=== PATIENT | male | born 1955 | race Caucasian/White ===

== ENCOUNTER 2019-05-17 13:54 | Outpatient (CLI) | payer MEDICARE ==
[2019-05-17 17:25] LABS: BASOPHILS % (AUTO) 0.7 %; EOSINOPHILS # (AUTO) 0.1 10^3/uL (0.0-0.7); EOSINOPHILS % (AUTO) 2.8 %; HGB - HEMOGLOBIN 14.6 g/dL (14.0-18.0); LYMPHOCYTES # (AUTO) 1.2 10^3/uL (1.5-3.5); MEAN CORPUSCULAR HEMOGLOBIN 31.8 pg (27.0-31.0); MEAN CORPUSCULAR HGB CONC 33.6 g/dL (32.0-36.0); MEAN CORPUSCULAR VOLUME 94.8 fL (80.0-94.0); MEAN PLATELET VOLUME 10.9 fL (7.4-11.4); MONOCYTES # (AUTO) 0.4 10^3/uL (0.0-1.0); NEUTROPHILS # (AUTO) 2.6 10^3/uL (1.5-6.6); NEUTROPHILS % (AUTO) 60.3 %; PLT - PLATELET COUNT 233 10^3/uL (130-450); RED BLOOD COUNT 4.59 10^6/uL (4.70-6.10); RED CELL DISTRIBUTION WIDTH 13.2 % (12.0-15.0); WHITE BLOOD COUNT 4.3 x10^3/uL (4.8-10.8)
[2019-05-17 17:39] LABS: HB2 TOTAL 15.3 g/dL; HEMOGLOBIN A1C 0.98 g/dL
[2019-05-17 17:50] LABS: ALBUMIN/GLOBULIN RATIO 1.4 (1.0-2.2); ALKALINE PHOSPHATASE 73 IU/L (42-121); ALT ALANINE AMINOTRANSFERASE 23 IU/L (10-60); AST ASPARTATE AMINOTRANSFERASE 19 IU/L (10-42); BILIRUBIN,TOTAL 0.7 mg/dL (0.2-1.0); BUN - BLOOD UREA NITROGEN 20 mg/dL (6-20); CALCIUM 8.9 mg/dL (8.5-10.3); CARBON DIOXIDE - CO2 29 mmol/L (21-32); CHLORIDE 105 mmol/L (101-111); CHOL/HDL RATIO 2.8 (<5.0); CHOLESTEROL 115 mg/dL; CREATININE 1.2 mg/dL (0.6-1.2); GFR - MDRD 61 (>89); GLUCOSE 268 mg/dL (70-100); HDL CHOLESTEROL 41 mg/dL; LDL CHOLESTEROL,CALCULATED 59 mg/dL; LDL/HDL RATIO 1.4 (<3.6); SODIUM 138 mmol/L (135-145); TOTAL PROTEIN 6.8 g/dL (6.7-8.2); VLDL CHOLESTEROL 15 mg/dL
== END 2019-05-17 13:55 | disposition home or self-care (01) ==
LOC: LAB.S 13:54
PROVIDERS: ATTEND Registered Nurse
DX: E10.9 Type 1 diabetes mellitus without complications (principal); I10 Essential (primary) hypertension
CPT/HCPCS: 36415; 80053; 80061; 83036; 83721; 84443; 85025

== ENCOUNTER 2019-06-09 00:23 | Emergency (ER) | payer MEDICARE ==
--- NOTE | 2019-06-09 00:27 | ED Physician Documentation ---
History of Present Illness - Stated complaint Stated Complaint: VOMITING - History obtained from History obtained from: Patient (The patient is a 63-year-old male who is an insulin-dependent diabetic he has been vomiting all day he does report getting admitted to the hospital once annually for either combination of diabetic ketoacidosis as well as diabetic Gastroparesis.He is on chronic proton pump inhibitor he reports that today he was more active than usual and then Started t o not feel well and started vomiting.), Family Review of Systems Constitutional: reports: Reviewed and negative Eyes: reports: Reviewed and negative Ears: reports: Reviewed and negative Nose: reports: Reviewed and negative Throat: reports: Reviewed and negative Cardiac: reports: Reviewed and negative Respiratory: reports: Reviewed and negative GI: reports: Vomiting, Reviewed and negative : reports: Reviewed and negative Skin: reports: Reviewed and negative Musculoskeletal: reports: Reviewed and negative Neurologic: reports: Reviewed and negative Psychiatric: reports: Reviewed and negative Endocrine: reports: Reviewed and negative Immunocompromised: reports: Reviewed and negative PD PAST MEDICAL HISTORY - Present Medications Home Medications: Ambulatory Orders Medication Instructions Recorded Confirmed Atorvastatin Calcium 40 mg PO DAILY 06/09/19 06/09/19 Carvedilol [Coreg] 25 mg PO DAILY 06/09/19 06/09/19 Losartan Potassium 25 mg PO DAILY 06/09/19 06/09/19 Metoclopramide [Reglan] 10 mg PO Q6HR PRN #10 tablet 06/09/19 Omeprazole 20 mg PO DAILY 06/09/19 06/09/19 Ondansetron Odt [Zofran] 4 mg TL Q6H PRN #10 tablet 06/09/19 Tamsulosin [Flomax] 0.4 mg PO DAILY 06/09/19 06/09/19 - Allergies Allergies/Adverse Reactions: Allergies Allergy/AdvReac Type Severity Reaction Status Date / Time No Known Drug Allergies Allergy Verified 06/09/19 00:55 PD ED PE NORMAL - Vitals Vital signs reviewed: Yes - General General: Alert and oriented X 3, No acute distress, Well developed/nourished - HEENT HEENT: Atraumatic, PERRL, EOMI, Ears normal, Moist mucous membranes, Pharynx benign, Dentition benign - Neck Neck: Supple, no meningeal sign, No bony TTP - Cardiac Cardiac: RRR, No murmur, Strong equal pulses - Respiratory Respiratory: No respiratory distress, Clear bilaterally - Abdomen Abdomen: Normal bowel sounds, Soft, Non tender, Non distended, No organomegaly - Male Male : Deferred - Rectal Rectal: Deferred - Back Back: No CVA TTP, No spinal TTP - Derm Derm: Normal color, Warm and dry, No rash - Extremities Extremities: No deformity, No tenderness to palpate, Normal ROM s pain, No edema, No calf tenderness / cord - Neuro Neuro: Alert and oriented X 3, manager brand 2-12 intact, No motor deficit, No sensory deficit, Normal speech - Psych Psych: Normal mood, Normal affect Results - Vitals Vitals: Vital Signs - 24 hr 06/09/19 06/09/19 06/09/19 00:34 01:08 01:10 Temperature 37.1 C Heart Rate 113 H 103 H Respiratory 19 17 17 Rate Blood Pressure 158/89 H 119/76 O2 Saturation 98 99 06/09/19 06/09/19 02:22 02:41 Temperature Heart Rate 83 Respiratory 17 17 Rate Blood Pressure 141/81 H O2 Saturation 97 Oxygen O2 Source Room air - EKG (time done) 00:54 Rate: Other (No STEMI) - Labs Labs: Laboratory Tests 06/09/19 06/09/19 06/09/19 01:45 01:45 01:45 WBC 9.4 RBC 5.20 Hgb 16.3 Hct 47.0 MCV 90.4 MCH 31.3 H MCHC 34.7 RDW 12.9 Plt Count 238 MPV 10.1 Neut # (Auto) 8.5 H Lymph # (Auto) 0.4 L P[place] # (Auto) 0.4 Eos # (Auto) 0.0 Baso # (Auto) 0.0 Absolute Nucleated RBC 0.00 Nucleated RBC % 0.0 VBG pH VBG pCO2 VBG pO2 VBG HCO3 VBG Total CO2 VBG O2 Saturation VBG Base Excess Sodium 134 L Potassium 4.1 Chloride 100 L Carbon Dioxide 20 L Anion Gap 14.0 H BUN 23 H Creatinine 1.2 Estimated GFR (MDRD) 61 L Glucose 329 H Lactic Acid 2.3 H Calcium 8.4 L Phosphorus 4.1 Magnesium 1.6 L Total Bilirubin 1.5 H Direct Bilirubin 0.3 AST 25 ALT 27 Alkaline Phosphatase 68 Total Creatine Kinase 371 H Troponin I High Sens Total Protein 7.0 Albumin 4.4 Globulin 2.6 Lipase 23 Ethyl Alcohol < 5.0 Serum Ketones NEGATIVE 06/09/19 06/09/19 01:45 01:45 WBC RBC Hgb Hct MCV MCH MCHC RDW Plt Count MPV Neut # (Auto) Lymph # (Auto) Pinal # (Auto) Eos # (Auto) Baso # (Auto) Absolute Nucleated RBC Nucleated RBC % VBG pH 7.330 VBG pCO2 41.9 VBG pO2 35.1 VBG HCO3 21.6 L VBG Total CO2 22.9 L VBG O2 Saturation 69.9 VBG Base Excess -4.1 L Sodium Potassium Chloride Carbon Dioxide Anion Gap BUN Creatinine Estimated GFR (MDRD) Glucose Lactic Acid Calcium Phosphorus Magnesium Total Bilirubin Direct Bilirubin AST ALT Alkaline Phosphatase Total Creatine Kinase Troponin I High Sens 21.4 H* Total Protein Albumin Globulin Lipase Ethyl Alcohol Serum Ketones PD MEDICAL DECISION MAKING - ED course Complexity details: considered differential (DKA, dehydration, acute kidney injury, ACS, diabetic gastroparesis) Departure - Departure Clinical Impression: Hyperglycemia, Gastroparesis diabeticorum Condition: Good Instructions: ED Diabetic Gastroparesis Follow-Up: Lena Kirkland ARNP [Primary Care Provider] - 06/09/19 Prescriptions: Metoclopramide [Reglan] 10 mg PO Q6HR PRN #10 tablet PRN Reason: Nausea / Vomiting Ondansetron Odt [Zofran] 4 mg TL Q6H PRN #10 tablet PRN Reason: Nausea / Vomiting
[2019-06-09] MEDS ORDERED: SODIUM CHLORIDE 0.9% 1,000 ML IV ONE (00:51)
[2019-06-09] MEDS ORDERED: ONDANSETRON 4 MG/2 ML VIAL IVP STA ×2 (00:51→03:04)
--- NOTE | 2019-06-09 01:21 | XRAY Report ---
Reason: cp Procedure Date: 06/09/2019 Accession Number: [id number] / [id number] Procedure: XR - Chest 1 View X-Ray CPT Code: 19904 Final Report FULL RESULT: EXAM: CHEST RADIOGRAPHY EXAM DATE: 06/09/2019 01:11 AM. CLINICAL HISTORY: Chest pain. COMPARISON: None. TECHNIQUE: 1 view. FINDINGS: Lungs/Pleura: No infiltrates. No pleural effusions or pneumothorax. Mediastinum: Heart size within normal limits. Atherosclerotic calcifications of the aortic knob. Osseous structures: No significant focal osseous lesions. IMPRESSION: No acute cardiopulmonary process identified radiographically. RADIA
[2019-06-09 01:51] LABS: BASOPHILS % (AUTO) 0.2 %; HGB - HEMOGLOBIN 16.3 g/dL (14.0-18.0); LYMPHOCYTES # (AUTO) 0.4 10^3/uL (1.5-3.5); LYMPHOCYTES % (AUTO) 4.4 %; MEAN CORPUSCULAR HEMOGLOBIN 31.3 pg (27.0-31.0); MEAN CORPUSCULAR HGB CONC 34.7 g/dL (32.0-36.0); MEAN CORPUSCULAR VOLUME 90.4 fL (80.0-94.0); MEAN PLATELET VOLUME 10.1 fL (7.4-11.4); MONOCYTES # (AUTO) 0.4 10^3/uL (0.0-1.0); MONOCYTES % (AUTO) 4.5 %; NEUTROPHILS # (AUTO) 8.5 10^3/uL (1.5-6.6); NEUTROPHILS % (AUTO) 90.6 %; PLT - PLATELET COUNT 238 10^3/uL (130-450); RED CELL DISTRIBUTION WIDTH 12.9 % (12.0-15.0); WHITE BLOOD COUNT 9.4 x10^3/uL (4.8-10.8)
[2019-06-09 01:55] LABS: KETONES, SERUM (ACETEST) NEGATIVE (NEGATIVE)
[2019-06-09 01:57] LABS: VBG BASE EXCESS -4.1 mmol/L (-2 - +2); VBG PCO2 41.9 mmHg (41-51); VBG PH 7.33 (7.31-7.41); VBG PO2 35.1 mmHg (25-47); VBG TOTAL CO2 22.9 mmol/L (24-29)
[2019-06-09 02:09] LABS: ALBUMIN 4.4 g/dL (3.2-5.5); ALKALINE PHOSPHATASE 68 IU/L (42-121); ALT ALANINE AMINOTRANSFERASE 27 IU/L (10-60); AST ASPARTATE AMINOTRANSFERASE 25 IU/L (10-42); BILIRUBIN,DIRECT 0.3 mg/dL (0.1-0.5); BILIRUBIN,TOTAL 1.5 mg/dL (0.2-1.0); BUN - BLOOD UREA NITROGEN 23 mg/dL (6-20); CALCIUM 8.4 mg/dL (8.5-10.3); CARBON DIOXIDE - CO2 20 mmol/L (21-32); CHLORIDE 100 mmol/L (101-111); CK- CREATINE KINASE 371 IU/L (22-269); CREATININE 1.2 mg/dL (0.6-1.2); GFR - MDRD 61 (>89); GLUCOSE 329 mg/dL (70-100); LIPASE 23 U/L (22-51); MAGNESIUM 1.6 mg/dL (1.7-2.8); PHOSPHORUS 4.1 mg/dL (2.5-4.6); SODIUM 134 mmol/L (135-145)
[2019-06-09 02:23] VITALS: BP 141/81
[2019-06-09] MEDS ORDERED: ONDANSETRON 4 MG/2 ML VIAL ONE (03:07)
== END 2019-06-09 03:29 | disposition home or self-care (01) ==
LOC: ED 00:23
DX: E11.43 Type 2 diabetes mellitus with diabetic autonomic (poly)neuropathy (principal); E11.65 Type 2 diabetes mellitus with hyperglycemia; K31.84 Gastroparesis; Z79.4 Long term (current) use of insulin; R00.0 Tachycardia, unspecified
CPT/HCPCS: 36415; 71045; 80048; 80076; 80320; 82009; 82550; 82803; 83605; 83690; 83735; 84100; 84484; 85025; 93005; 99284; 99285

== ENCOUNTER 2019-06-09 13:58 | Inpatient (IN) | payer MEDICARE ==
--- NOTE | 2019-06-09 15:22 | ED Physician Documentation ---
PD HPI NVD - Stated complaint Stated Complaint: VOMITING - Chief complaint Chief Complaint: Abd Pain - History obtained from History obtained from: Patient - History of Present Illness Timing - onset: How many days ago (2) Timing - duration: Days (2) Timing - details: Gradual onset, Still present Associated symptoms: Abdominal pain (general cramping), Hematemesis (coffeeground emesis today), Loss of appetite. No: Fever, Near syncope / syncope Contributing factors: Diabetes. No: Sick contact, Bad food, Travel Improved by: No: Vomiting Worsened by: Eating, Position, Palpation Similar symptoms before: Diagnosis (DKA or gastroperesis about once per year on average, usually related to some illness starting it (GE or URI/pneumonia).i) Recently seen: Emergency Dept (last night with IV fluids and meds and seemed improved at the time, but states had onset of nausea and vomiting within an hour of getting home.) Review of Systems Constitutional: reports: Myalgias, Fatigue. denies: Fever, Chills, Weight Loss Nose: denies: Rhinorrhea / runny nose, Congestion Throat: denies: Sore throat Cardiac: denies: Chest pain / pressure, Palpitations Respiratory: denies: Cough GI: reports: Abdominal Pain, Nausea, Vomiting, Hematemesis (some coffeeground material this morning). denies: Abdominal Swelling, Constipation, Bloody / black stool Musculoskeletal: denies: Neck pain, Back pain Neurologic: reports: Generalized weakness. denies: Focal weakness, Numbness, Near syncope PD PAST MEDICAL HISTORY - Past Medical History Cardiovascular: Hypertension Respiratory: None Neuro: None Endocrine/Autoimmune: Type 1 diabetes GI: GERD : None HEENT: None Psych: None Musculoskeletal: None Derm: None - Past Surgical History Past Surgical History: Yes General: Appendectomy Ortho: Other - Present Medications Home Medications: Ambulatory Orders Medication Instructions Recorded Confirmed Atorvastatin Calcium 40 mg PO QPM 06/09/19 06/09/19 Carvedilol [Coreg] 25 mg PO DAILY 06/09/19 06/09/19 Insulin Regular Human [NovoLIN R] 0 - 5 unit SUBQ TIDWM 06/09/19 06/09/19 Insulin Regular Human [NovoLIN R] 35 unit SUBQ BID 06/09/19 06/09/19 Losartan Potassium 25 mg PO DAILY 06/09/19 06/09/19 Omeprazole 20 mg PO DAILY 06/09/19 06/09/19 Tamsulosin [Flomax] 0.4 mg PO DAILY 06/09/19 06/09/19 - Allergies Allergies/Adverse Reactions: Allergies Allergy/AdvReac Type Severity Reaction Status Date / Time No Known Drug Allergies Allergy Verified 06/09/19 00:55 - Social History Does the pt smoke?: Yes Smoking Status: Current every day smoker Does the pt drink ETOH?: No Does the pt have substance abuse?: Yes - Immunizations Immunizations are current?: Yes - POLST Patient has POLST: No PD ED PE NORMAL - Vitals Vital signs reviewed: Yes (hypertensive; had not had BP meds for 2 days) - General General: Alert and oriented X 3, Well developed/nourished, Other (active vomiting with coffeeground material. No faizan blood. Appears uncomfortable. ) - HEENT HEENT: Ears normal, Pharynx benign. No: Moist mucous membranes - Neck Neck: Supple, no meningeal sign, No adenopathy - Cardiac Cardiac: RRR, No murmur - Respiratory Respiratory: Clear bilaterally - Abdomen Abdomen: Soft, Non distended, No organomegaly, Other (tender epigastric area without guarding. Diminished bowel sounds. ) - Male Male : Deferred - Rectal Rectal: Deferred - Back Back: No CVA TTP - Derm Derm: Normal color, Warm and dry - Extremities Extremities: No tenderness to palpate, Normal ROM s pain - Neuro Neuro: Alert and oriented X 3, No motor deficit, Normal speech Results - Vitals Vitals: Vital Signs - 24 hr 06/09/19 06/09/19 06/09/19 14:13 16:09 16:29 Temperature 36.8 C 37.4 C Heart Rate 106 H 108 H 93 Respiratory 18 20 Rate Blood Pressure 219/122 H 262/125 H 218/119 H O2 Saturation 99 97 06/09/19 16:45 Temperature Heart Rate 92 Respiratory 18 Rate Blood Pressure 198/97 H O2 Saturation 97 Oxygen O2 Source Room air - Labs Labs: Laboratory Tests 06/09/19 06/09/19 06/09/19 14:18 15:20 15:39 WBC 12.9 H RBC 5.21 Hgb 16.3 Hct 46.8 MCV 89.8 MCH 31.3 H MCHC 34.8 RDW 13.1 Plt Count 248 MPV 10.3 Neut # (Auto) 11.6 H Lymph # (Auto) 0.5 L Williams # (Auto) 0.7 Eos # (Auto) 0.0 Baso # (Auto) 0.0 Absolute Nucleated RBC 0.00 Nucleated RBC % 0.0 VBG pH VBG pCO2 VBG pO2 VBG HCO3 VBG Total CO2 VBG O2 Saturation VBG Base Excess Sodium 133 L Potassium 4.4 Chloride 96 L Carbon Dioxide 19 L Anion Gap 18.0 H BUN 45 H Creatinine 1.8 H Estimated GFR (MDRD) 38 L Glucose 486 H POC Whole Bld Glucose 437 H Glycated Hemoglobin Estim Average Glucose Calcium 9.2 Magnesium 1.9 Total Bilirubin 1.9 H AST 44 H ALT 33 Alkaline Phosphatase 78 Total Protein 7.9 Albumin 4.9 Globulin 3.0 Albumin/Globulin Ratio 1.6 Lipase 16 L Serum Ketones SMALL H 06/09/19 06/09/19 06/09/19 15:39 15:39 17:05 WBC RBC Hgb Hct MCV MCH MCHC RDW Plt Count MPV Neut # (Auto) Lymph # (Auto) Williams # (Auto) Eos # (Auto) Baso # (Auto) Absolute Nucleated RBC Nucleated RBC % VBG pH 7.401 VBG pCO2 30.6 L VBG pO2 42.3 VBG HCO3 18.6 L VBG Total CO2 19.5 L VBG O2 Saturation 81.4 H VBG Base Excess -4.7 L Sodium Potassium Chloride Carbon Dioxide Anion Gap BUN Creatinine Estimated GFR (MDRD) Glucose POC Whole Bld Glucose 408 H Glycated Hemoglobin 8.1 H Estim Average Glucose 186 H Calcium Magnesium Total Bilirubin AST ALT Alkaline Phosphatase Total Protein Albumin Globulin Albumin/Globulin Ratio Lipase Serum Ketones - Rads (name of study) chest xray Radiology: Prelim report reviewed (low lung volumes; no acute disease), See rad report PD MEDICAL DECISION MAKING - ED course Complexity details: reviewed old records, reviewed results (small ketones and low bicarb, though pH is still 7.4, so is at just edge of DKA. ), re-evaluated patient (still nauseated and general weakness; no active vomiting), considered differential, d/w patient, d/w cognos consultant (hospitalist) Departure - Departure Disposition: 66 [facility] DC/Xfer Condition: Stable Record reviewed to determine appropriate education?: Yes Discharge Date/Time: 06/09/19 18:17
[2019-06-09 15:36] LABS: BASOPHILS % (AUTO) 0.2 %; HGB - HEMOGLOBIN 16.3 g/dL (14.0-18.0); LYMPHOCYTES # (AUTO) 0.5 10^3/uL (1.5-3.5); LYMPHOCYTES % (AUTO) 3.9 %; MEAN CORPUSCULAR HEMOGLOBIN 31.3 pg (27.0-31.0); MEAN CORPUSCULAR HGB CONC 34.8 g/dL (32.0-36.0); MEAN CORPUSCULAR VOLUME 89.8 fL (80.0-94.0); MEAN PLATELET VOLUME 10.3 fL (7.4-11.4); MONOCYTES # (AUTO) 0.7 10^3/uL (0.0-1.0); MONOCYTES % (AUTO) 5.5 %; NEUTROPHILS # (AUTO) 11.6 10^3/uL (1.5-6.6); NEUTROPHILS % (AUTO) 89.9 %; PLT - PLATELET COUNT 248 10^3/uL (130-450); RED BLOOD COUNT 5.21 10^6/uL (4.70-6.10); RED CELL DISTRIBUTION WIDTH 13.1 % (12.0-15.0); WHITE BLOOD COUNT 12.9 x10^3/uL (4.8-10.8)
[2019-06-09] MEDS ORDERED: FAMOTIDINE 20 MG/2 ML VIAL IVP STA (15:36)
[2019-06-09] MEDS ORDERED: SODIUM CHLORIDE 0.9% 1,000 ML IV ONE ×3 (15:36→17:15)
[2019-06-09] MEDS ORDERED: ONDANSETRON 4 MG/2 ML VIAL IVP STA (15:36)
[2019-06-09] MEDS ORDERED: INSULIN REGULAR HUMAN 100 UNIT/1 ML 10 ML MDV IVP STA ×2 (15:36→17:07)
[2019-06-09 15:48] LABS: VBG PH 7.401 (7.31-7.41)
[2019-06-09 15:49] LABS: VBG BASE EXCESS -4.7 mmol/L (-2 - +2); VBG PCO2 30.6 mmHg (41-51); VBG PO2 42.3 mmHg (25-47); VBG TOTAL CO2 19.5 mmol/L (24-29)
[2019-06-09 15:58] LABS: ALBUMIN 4.9 g/dL (3.2-5.5); ALBUMIN/GLOBULIN RATIO 1.6 (1.0-2.2); ALKALINE PHOSPHATASE 78 IU/L (42-121); ALT ALANINE AMINOTRANSFERASE 33 IU/L (10-60); AST ASPARTATE AMINOTRANSFERASE 44 IU/L (10-42); BILIRUBIN,TOTAL 1.9 mg/dL (0.2-1.0); BUN - BLOOD UREA NITROGEN 45 mg/dL (6-20); CALCIUM 9.2 mg/dL (8.5-10.3); CARBON DIOXIDE - CO2 19 mmol/L (21-32); CHLORIDE 96 mmol/L (101-111); CREATININE 1.8 mg/dL (0.6-1.2); GLUCOSE 486 mg/dL (70-100); LIPASE 16 U/L (22-51); MAGNESIUM 1.9 mg/dL (1.7-2.8); SODIUM 133 mmol/L (135-145); TOTAL PROTEIN 7.9 g/dL (6.7-8.2)
[2019-06-09] MEDS ORDERED: METOPROLOL 5 MG/5 ML VIAL IVP STA ×2 (16:10→17:06)
[2019-06-09 16:15] LABS: KETONES, SERUM (ACETEST) SMALL (NEGATIVE)
[2019-06-09] MEDS ORDERED: METOCLOPRAMIDE 10 MG/2 ML VIAL IVP STA (16:45)
[2019-06-09] MEDS ORDERED: INSULIN REGULAR HUMAN 100 UNIT in SODIUM CHLORIDE 0.9% 100ML 99 ML IV STA (17:15)
[2019-06-09] MEDS ORDERED: PROCHLORPERAZINE 10 MG/2 ML VIAL IVP PRN (17:33)
[2019-06-09] MEDS ORDERED: ACETAMINOPHEN 325 MG TABLET PO PRN (17:33)
[2019-06-09 18:13] LABS: BUN - BLOOD UREA NITROGEN 44 mg/dL (6-20); CALCIUM 8.8 mg/dL (8.5-10.3); CARBON DIOXIDE - CO2 22 mmol/L (21-32); CHLORIDE 102 mmol/L (101-111); CREATININE 1.7 mg/dL (0.6-1.2); GLUCOSE 381 mg/dL (70-100); SODIUM 137 mmol/L (135-145)
[2019-06-09 18:42] LABS: MUDS CUTOFF CONCENTRATIONS CUTOFF CONC BELOW:
[2019-06-09 18:46] LABS: BILIRUBIN,URINE NEGATIVE (NEGATIVE); GLUCOSE, URINE (UA) >=1000 mg/dL (NEGATIVE); KETONES,URINE (UA) 40 mg/dL (NEGATIVE); LEUKOCYTE ESTERASE, URINE NEGATIVE (NEGATIVE); NITRITE,URINE NEGATIVE (NEGATIVE); OCCULT BLOOD,URINE LARGE (NEGATIVE); PH,URINE 5.5 PH (5.0-7.5); PROTEIN,URINE 100 mg/dL (NEGATIVE); UROBILINOGEN,URINE 0.2 (NORMAL) E.U./dL (NORMAL)
[2019-06-09 18:49] LABS: KETONES, SERUM (ACETEST) NEGATIVE (NEGATIVE)
[2019-06-09 18:53] LABS: BACTERIA,URINE None Seen /HPF (None Seen); CLARITY,URINE CLEAR (CLEAR); RBC,URINE 0-5 /HPF (0-5); SQUAMOUS EPITHELIAL CELL,UR NONE SEEN (<= Few)
[2019-06-09 18:54] LABS: AMPHETAMINE SCREEN,URINE NEGATIVE (NEGATIVE); BENZODIAZEPINES SCREEN, URINE NEGATIVE (NEGATIVE); COCAINE SCREEN URINE NEGATIVE (NEGATIVE); METHADONE SCREEN, URINE NEGATIVE (NEGATIVE); METHAMPHETAMINES SCREEN, URINE NEGATIVE (NEGATIVE); OPIATE SCREEN, URINE NEGATIVE (NEGATIVE); OXYCODONE SCREEN, URINE NEGATIVE (NEGATIVE); PROPOXYPHENE SCREEN, URINE NEGATIVE (NEGATIVE); TRICYCLIC ANTIDEPRESSANT,URINE NEGATIVE (NEGATIVE)
[2019-06-09 18:58] LABS: HB2 TOTAL 17.3 g/dL; HEMOGLOBIN A1C 1.13 g/dL; HEMOGLOBIN A1C % 8.1 % (4.6-6.2)
[2019-06-09] MEDS: SODIUM CHLORIDE FLUSH 0.9% 10 ML SYRINGE IVP SCH (19:32)
--- NOTE | 2019-06-09 19:41 | HISTORY & PHYSICAL EXAMINATION ---
Chief Complaint - Chief Complaint Chief Complaint: nausea and vomiting History of Present Illness - Admitted From Admitted From:: [facility] - History Obtained From Records Reviewed: yes History obtained from: patient - History of Present Illness HPI Comment/Other: Patient is a 63 y/o male who is diabetic and has gastroporesis. He presented to the ED with complain of nausea and vomiting. He is usually nauseous and vomits numerous times on most days. However he has been experiencing worsening symptoms over the past 7-8 days. As a result he was brought to the ED today by his daughter. He had presented yesterday, was treated in the ED, felt better, so he was discharged. He had a pHof 7.33, anion gap of 19 but no serum ketones. Today his serum ketones were positive and his blood glucose was 408. As a result he was admitted to the ICU on insulin drip for DKA. He denies chest pain, dyspnea, abd pain, fever or chills. His nausea and vomiting seems to have subsided. History - Past Medical History Cardiovascular: reports: Hypertension, High cholesterol Respiratory: reports: None Neuro: reports: None Endocrine/Autoimmune: reports: Type 1 diabetes GI: reports: GERD : reports: Benign prostate hypertrophy HEENT: reports: None Psych: reports: None Musculoskeletal: reports: Gout Derm: reports: None MRSA Hx?: No Other Past Medical History: Gastroperisis - Past Surgical History General: reports: Appendectomy Ortho: reports: Amputation (right lateral 2 toes), Other - Family & Social History Family History: Father: Cancer, Sister: Diabetes, Type 1 (and maternsl cousins), Brother: Cancer, Diabetes, Type 1 Living arrangement: At home Social History Notes: He smokes marijuana but no tobacco product. He drinks occasionally - POLST Patient has POLST: No POLST Status: Full Code Meds/Allgy - Home Medications Home Medications: Ambulatory Orders Medication Instructions Recorded Confirmed Atorvastatin Calcium 40 mg PO QPM 06/09/19 06/09/19 Carvedilol [Coreg] 25 mg PO DAILY 06/09/19 06/10/19 Insulin Regular Human [NovoLIN R] 2 - 10 unit SUBQ TIDWM 06/09/19 06/10/19 Losartan Potassium 25 mg PO DAILY 06/09/19 06/10/19 Omeprazole 20 mg PO QDAC 06/09/19 06/10/19 Tamsulosin [Flomax] 0.4 mg PO DAILY 06/09/19 06/10/19 Insulin NPH Human [Humulin N] 35 unit SUBQ BID 06/10/19 06/10/19 - Allergies Allergies/Adverse Reactions: Allergies Allergy/AdvReac Type Severity Reaction Status Date / Time No Known Drug Allergies Allergy Verified 06/09/19 00:55 Review of Systems - Constitutional Constitutional: denies: Fatigue, Fever, Chills - Eyes Eyes: reports: Blurred vision (in left eye). denies: Pain - Ears, Nose & Throat Ears, Nose & Throat: reports: Hearing loss (in right ear) - Cardiovascular Cariovascular: denies: Chest pain, Edema, Lightheadedness, Syncope - Respiratory Respiratory: denies: Cough, Wheezing, SOB at rest, SOB with exertion - Gastrointestinal Gastrointestinal: reports: Nausea, Vomiting, Reflux/heartburn. denies: Abdominal pain, Diarrhea - Genitourinary Genitourinary: denies: Dysuria, Frequency, Urgency, Hematuria - Musculoskeletal Musculoskeletal: denies: Muscle pain, Back pain, Muscle aches - Integumentary Integumentary: denies: Rash, Pruritis, Lesions - Neurological Neurological: denies: General weakness, Focal weakness, Headache, Dizziness - Psychiatric Psychiatric: denies: Depression, Anxiety - Endocrine Endocrine: denies: Polyuria, Polydypsia - Hematologic/Lymphatic Hematologic/Lymphatic: denies: Anemia, Bruising, Petechiae Prior Level of Functionality: He is independent of activities of daily living. Exam - Vital Signs Vital Signs: Vital Signs x48h Temp Pulse Pulse Resp BP BP Pulse Ox 06/09/19 19:00 101 H 15 138/95 H 100 06/09/19 18:43 37.3 C 92 19 211/120 H 06/09/19 17:47 87 16 134/79 H 98 06/09/19 17:30 87 18 140/81 H 97 06/09/19 17:25 91 199/99 H 06/09/19 16:45 92 18 198/97 H 97 06/09/19 16:29 93 218/119 H 06/09/19 16:09 37.4 C 108 H 20 262/125 H 97 06/09/19 14:13 36.8 C 106 H 18 219/122 H 99 - Physical Exam General Appearance: positive: No acute distress, Alert Eyes Bilateral: positive: PERRL, EOMI ENT: positive: Dry mucous membranes Neck: positive: No JVD, Trachea midline Respiratory: positive: Chest non-tender, No respiratory distress, Breath sounds nml. negative: Wheezes, Rales, Rhonchi Cardiovascular: positive: Regular rate & rhythm Abdomen: positive: Non-tender, No organomegaly, Nml bowel sounds, No distention. negative: Guarding, Rebound Back: positive: Nml inspection Skin: positive: Color nml, Warm, Other (callouses on feet with possible ulcer underneath) Extremities: positive: Non-tender, No pedal edema, Other (right lateral 2 toes amputated) Neurologic/Psychiatric: positive: Oriented x3, Motor nml, Mood/affect nml Conclusion/Plan - Problem List (1) DKA (diabetic ketoacidoses) Conclusion/Plan: Patient admitted to the ICU on the DKA protocol. Will monitor BMP and adjust insulin accordingly Qualifiers: Diabetes mellitus type: type 1 (2) Gastroparesis diabeticorum Conclusion/Plan: Patient given metoclopramide in the ED. Will schedule Q6hrs Zofran ordered prn (3) Hyperlipidemia Conclusion/Plan: On atorvastatin 40 mg p0 qhs (4) Hypertension Conclusion/Plan: On losartan and carvedilol (5) BPH (benign prostatic hyperplasia) Conclusion/Plan: On tamsulosin (6) GERD (gastroesophageal reflux disease) Conclusion/Plan: Famotidine ordered (7) Acute kidney injury superimposed on CKD Conclusion/Plan: Likely pre-renal form nausea and vomiting related to gastroparesis. Patient receiving IV hydration. Expect improvement. - Lab Results Fish Bones: 06/10/19 05:50 06/10/19 05:50 Core Measures - Anticipated LOS I expect patient to be DC'd or transferred within 96 hours.: Yes - DVT/VTE - Prophylaxis VTE/DVT Device ordered at admit?: Yes
[2019-06-09 19:53] LABS: KETONES, SERUM (ACETEST) NEGATIVE (NEGATIVE)
[2019-06-09 19:54] LABS: BUN - BLOOD UREA NITROGEN 44 mg/dL (6-20); CALCIUM 9.1 mg/dL (8.5-10.3); CARBON DIOXIDE - CO2 22 mmol/L (21-32); CHLORIDE 102 mmol/L (101-111); CREATININE 1.7 mg/dL (0.6-1.2); GLUCOSE 333 mg/dL (70-100); SODIUM 136 mmol/L (135-145)
[2019-06-09] MEDS: SODIUM CHLORIDE 0.9% 1,000 ML IV SCH (20:07)
[2019-06-09 20:41] LABS: KETONES, SERUM (ACETEST) NEGATIVE (NEGATIVE)
--- NOTE | 2019-06-09 20:42 | XRAY Report ---
Reason: N/V, DKA Procedure Date: 06/09/2019 Accession Number: [id number] / [id number] Procedure: XR - Chest 1 View X-Ray CPT Code: 27401 Final Report FULL RESULT: EXAM: CHEST RADIOGRAPHY EXAM DATE: 06/09/2019 06:04 PM. CLINICAL HISTORY: Nausea and vomiting, DKA. COMPARISON: CHEST 1 VIEW 06/09/2019 12:51 AM. TECHNIQUE: 1 view. FINDINGS: Lungs/Pleura: The lung volumes are diminished as before. No focal consolidation, effusions or edema evident. Mediastinum: Within exam limitations, the cardiomediastinal contour is normal. Other: None. IMPRESSION: Low lung volumes as before. No acute cardiopulmonary disease evident. RADIA
[2019-06-09 20:45] LABS: BUN - BLOOD UREA NITROGEN 45 mg/dL (6-20); CALCIUM 8.5 mg/dL (8.5-10.3); CARBON DIOXIDE - CO2 23 mmol/L (21-32); CHLORIDE 104 mmol/L (101-111); CREATININE 1.6 mg/dL (0.6-1.2); GLUCOSE 279 mg/dL (70-100); MAGNESIUM 1.9 mg/dL (1.7-2.8); SODIUM 136 mmol/L (135-145)
[2019-06-09] MEDS: FAMOTIDINE 20 MG/2 ML VIAL IVP SCH (21:03)
[2019-06-09] MEDS: SODIUM CHLORIDE FLUSH 0.9% 10 ML SYRINGE IVP PRN (21:03)
[2019-06-09] MEDS: ONDANSETRON 4 MG/2 ML VIAL IVP PRN (23:20)
[2019-06-09] MEDS ORDERED: DEXTROSE 5%-0.45% NACL 1,000 ML IV SCH (23:45)
[2019-06-10] MEDS ORDERED: INSULIN GLARGINE 300 UNIT/3 ML PEN SUBQ ONE (00:05)
[2019-06-10] MEDS: METOCLOPRAMIDE 10 MG/2 ML VIAL IVP SCH ×4 (00:15→17:49)
[2019-06-10] MEDS ORDERED: diphenhydrAMINE 25 MG CAPSULE PO STA (00:38)
[2019-06-10] MEDS: SODIUM CHLORIDE 0.9% 1,000 ML IV SCH ×4 (02:29→15:00)
[2019-06-10] MEDS: ONDANSETRON 4 MG/2 ML VIAL IVP PRN ×3 (05:03→21:37)
[2019-06-10] MEDS: SODIUM CHLORIDE FLUSH 0.9% 10 ML SYRINGE IVP PRN ×5 (05:38→21:37)
[2019-06-10 06:13] LABS: BASOPHILS % (AUTO) 0.1 %; HGB - HEMOGLOBIN 15.9 g/dL (14.0-18.0); LYMPHOCYTES # (AUTO) 0.7 10^3/uL (1.5-3.5); LYMPHOCYTES % (AUTO) 5.1 %; MEAN CORPUSCULAR HEMOGLOBIN 31.3 pg (27.0-31.0); MEAN CORPUSCULAR HGB CONC 34.4 g/dL (32.0-36.0); MEAN CORPUSCULAR VOLUME 90.9 fL (80.0-94.0); MONOCYTES % (AUTO) 7.4 %; NEUTROPHILS # (AUTO) 12.2 10^3/uL (1.5-6.6); PLT - PLATELET COUNT 218 10^3/uL (130-450); RED BLOOD COUNT 5.08 10^6/uL (4.70-6.10); RED CELL DISTRIBUTION WIDTH 13.1 % (12.0-15.0)
[2019-06-10 06:26] LABS: BUN - BLOOD UREA NITROGEN 43 mg/dL (6-20); CARBON DIOXIDE - CO2 21 mmol/L (21-32); CHLORIDE 105 mmol/L (101-111); CREATININE 1.5 mg/dL (0.6-1.2); GLUCOSE 376 mg/dL (70-100); SODIUM 138 mmol/L (135-145)
[2019-06-10] MEDS ORDERED: METOPROLOL 5 MG/5 ML VIAL IVP STA (06:36)
[2019-06-10] MEDS: carvediloL 12.5 MG TABLET PO SCH ×3 (07:52→21:01)
[2019-06-10] MEDS: LOSARTAN 50 MG TABLET PO SCH ×2 (07:52→08:54)
[2019-06-10 07:58] LABS: KETONES, SERUM (ACETEST) NEGATIVE (NEGATIVE)
--- NOTE | 2019-06-10 08:27 | PROVIDER PROGRESS NOTE ---
Assessment/Plan - Problem List (1) DKA (diabetic ketoacidoses) Qualifiers: Diabetes mellitus type: type 1 Assessment/Plan: Serum ketones are neg. His glu are running around 200. He was transitioned to his Lantus plus iv Reg Insulin drip continues. Will transition to sq Reg Insulin coverage when hi is taking a diet. POC glu checks continue. He remains in the ICU today, due to Insulin drip. (2) Gastroparesis diabeticorum Assessment/Plan: His exam is consistent with hypomotility. He and the state that this is his usual pattern and "it usually gets worse before it gets better". He is still nauseated, despite scheduled iv Reglan for gastroparesis and prn Zofran iv dosing. Will add Compazine, to alternate with Zofran. Will continue NPO status except sips and chips. He may therefore need his iv fluids changed to contain D5 later today. (3) Hypertension, uncontrolled Assessment/Plan: He may be uncontrolled due to pain or discomfort from nausea His once daily Coreg 25 mg and daily Losartan 25 mg are not controlling BP here. Will increase Losartan dose. Will make Coreg bid, watching for bradycardia. Will add prn iv Hydralazine. Will change iv fluids from NS to 1/2NS. Will add Ativan for "restlessness" (anxiety), which is likely also adding to HTN. (4) Acute kidney injury superimposed on CKD Assessment/Plan: It appears that his baseline creat here was 1.2 indicating mild CKD. Slight improvement in BUN/creat since admission, with iv saline hydration (45/1.8>> 44/1.7>> 43/1.5 this morning.) Avoid nephrotoxins. Continue iv hydration. Follow BMP daily. (5) BPH (benign prostatic hyperplasia) Assessment/Plan: Flomax ordered that he takes at home. (6) Anxiety Assessment/Plan: He describes feeling restless. Will add Ativan prn. OK to stand and walk in his room and be OOB in chair. - Current Meds Current Meds: Current Medications Generic Name Dose Route Start Last Admin Trade Name Freq PRN Reason Stop Dose Admin Carvedilol 25 mg 06/10/19 08:00 06/10/19 07:52 Coreg PO 25 mg DAILY NATHANIEL Administration Famotidine 20 mg 06/09/19 21:00 06/09/19 21:03 Pepcid IVP 20 mg BID NATHANIEL Administration Insulin Human Regular 100 unit 100 mls @ 3 mls/hr 06/09/19 17:15 06/10/19 00:00 / Sodium Chloride IV 06/10/19 15:59 0 unit/hr TITR STA 0 mls/hr Titration Protocol 3 UNIT/HR Sodium Chloride 1,000 mls @ 125 mls/hr 06/10/19 07:00 06/10/19 06:59 Normal Saline 0.9% IV 125 mls/hr .Q8H NATHANIEL Administration Losartan Potassium 25 mg 06/10/19 08:00 06/10/19 07:52 Cozaar PO 25 mg DAILY NATHANIEL Administration Metoclopramide HCl 5 mg 06/09/19 23:45 06/10/19 05:37 Reglan Inj IVP 5 mg Q6H NATHANIEL Administration Ondansetron HCl 4 mg 06/09/19 17:33 06/10/19 05:03 Zofran Inj IVP 4 mg Q6HR PRN Administration Nausea / Vomiting Sodium Chloride 10 ml 06/09/19 17:33 06/10/19 06:55 Normal Saline Flush 0.9% IVP 10 ml PRN PRN Administration NEEDED PER PROVIDER ORDERS Sodium Chloride 10 ml 06/10/19 01:00 06/09/19 19:32 Normal Saline Flush 0.9% IVP 10 ml 0100,0900,1700 NATHANIEL Administration - Lab Result Fish Bone Diagrams: 06/10/19 05:50 06/10/19 05:50 - Additional Planning My Orders: My Active Orders 06/09/19 17:28 Blood Glucose POC [RC] 0000,0600,1200,1800 Zarate Continuation and Care [RC] QSHIFT Zarate Insertion [RC] QSHIFT Initiate DKA RN Protocol [RC] .protocol Initiate Hypoglycemia Protocol [RC] .protocol Initiate ICU Electrolyte Prot. [RC] .protocol 06/09/19 17:30 Notify Provider - Specific Ins [RC] UD 06/09/19 17:33 Activity Orders [RC] Q2HR IO [RC] IOSHIFT Initiate Bowel Care Protocol [RC] .protocol Initiate Personal Care Protoco [RC] .protocol Oxygen Therapy [RC] Routine Vital Signs [RC] 0800,1600,0000 Acetaminophen [Tylenol] 650 mg PO Q4HR PRN Ondansetron Inj [Zofran Inj] 4 mg IVP Q6HR PRN Sodium Chloride Flush 0.9% [Normal Saline Flush 0.9%] 10 ml IVP PRN PRN Code Status [OTHERS] Routine Condition of Patient [OTHERS] Routine DVT Prophylaxis [OTHERS] Routine 06/09/19 17:34 Daily Weight [RC] 0600 IV Insert [RC] .ONCE NPO except Meds [DIET] 06/09/19 17:35 SCDs [RC] QSHIFT 06/09/19 17:36 Initiate Line Care Protocol [RC] QSWIFT 06/09/19 21:00 Famotidine [Pepcid] 20 mg IVP BID 06/10/19 01:00 Sodium Chloride Flush 0.9% [Normal Saline Flush 0.9%] 10 ml IVP 0100,0900,1700 06/10/19 08:00 Losartan [Cozaar] 25 mg PO DAILY carvediloL [Coreg] 25 mg PO DAILY 06/10/19 09:00 Tamsulosin [Flomax] 0.4 mg PO DAILY 06/11/19 05:00 BMP - BASIC METABOLIC PANEL [CHEM] DAILYLAB CBC - COMP BLD CT W/AUTO DIFF [HEME] DAILYLAB Subjective - Subjective Patient Reports: Nausea, Other (Feels restless, wants to walk around) Nursing Reports: Nausea Objective Vital Signs: Vital Signs - 24 hr 06/09/19 06/09/19 06/09/19 14:13 16:09 16:29 Temperature 36.8 C 37.4 C Heart Rate 106 H 108 H 93 Heart Rate [ Monitoring electrodes] Respiratory 18 20 Rate Blood Pressure 219/122 H 262/125 H 218/119 H Blood Pressure [Left Brachial artery] Blood Pressure [Right Brachial artery] O2 Saturation 99 97 06/09/19 06/09/19 06/09/19 16:45 17:25 17:30 Temperature Heart Rate 92 91 87 Heart Rate [ Monitoring electrodes] Respiratory 18 18 Rate Blood Pressure 198/97 H 199/99 H 140/81 H Blood Pressure [Left Brachial artery] Blood Pressure [Right Brachial artery] O2 Saturation 97 97 06/09/19 06/09/19 06/09/19 17:47 18:43 19:00 Temperature 37.3 C Heart Rate 87 Heart Rate [ 92 101 H Monitoring electrodes] Respiratory 16 19 15 Rate Blood Pressure 134/79 H Blood Pressure [Left Brachial artery] Blood Pressure 211/120 H 138/95 H [Right Brachial artery] O2 Saturation 98 100 06/09/19 06/09/19 06/09/19 20:00 21:00 23:11 Temperature 37.9 C H Heart Rate Heart Rate [ 94 104 H 95 Monitoring electrodes] Respiratory 18 19 12 Rate Blood Pressure Blood Pressure 158/102 H 174/96 H [Left Brachial artery] Blood Pressure 138/90 H [Right Brachial artery] O2 Saturation 98 96 95 06/10/19 06/10/19 06/10/19 00:00 01:17 02:00 Temperature 36.7 C Heart Rate Heart Rate [ 104 H 98 91 Monitoring electrodes] Respiratory 21 19 14 Rate Blood Pressure Blood Pressure 146/85 H 164/84 H 145/78 H [Left Brachial artery] Blood Pressure [Right Brachial artery] O2 Saturation 98 98 98 06/10/19 06/10/19 06/10/19 04:00 06:28 06:50 Temperature Heart Rate Heart Rate [ 92 113 H 99 Monitoring electrodes] Respiratory 14 24 20 Rate Blood Pressure Blood Pressure 167/93 H 217/108 H 212/110 H [Left Brachial artery] Blood Pressure [Right Brachial artery] O2 Saturation 98 100 97 06/10/19 06/10/19 06/10/19 06:55 07:02 07:15 Temperature Heart Rate Heart Rate [ 100 101 H 100 Monitoring electrodes] Respiratory 22 20 20 Rate Blood Pressure 232/126 H Blood Pressure 222/120 H 214/117 H 212/119 H [Left Brachial artery] Blood Pressure [Right Brachial artery] O2 Saturation 97 98 100 06/10/19 06/10/19 06/10/19 07:30 07:45 08:00 Temperature 37.2 C Heart Rate Heart Rate [ 107 H 104 H 101 H Monitoring electrodes] Respiratory 23 21 22 Rate Blood Pressure Blood Pressure 243/139 H 218/122 H [Left Brachial artery] Blood Pressure 223/136 H [Right Brachial artery] O2 Saturation 100 100 97 06/10/19 08:15 Temperature Heart Rate Heart Rate [ 97 Monitoring electrodes] Respiratory 18 Rate Blood Pressure Blood Pressure 161/86 H [Left Brachial artery] Blood Pressure [Right Brachial artery] O2 Saturation 97 Oxygen O2 Source Nasal cannula I&O (Last 24 Hrs): Intake and Output Totals x24h 0306/09/19 06/10/19 23:59 23:59 23:59 Intake Total 2552.017 56 Output Total 700 200 Balance 1852.017 -144 General: Alert, Oriented x3 HEENT: Other (Dry mucosa) Neck: Supple, No JVD Neuro: Alert, Non Focal Cardiovascular: Regular rate Respiratory: No respiratory distress Abdomen: Soft, No tenderness, Other (Hypertympanic) Extremities: No edema - Results Results: Laboratory Results WBC 14.0 x10^3/uL (4.8-10.8) H 06/10/19 05:50 RBC 5.08 10^6/uL (4.70-6.10) 06/10/19 05:50 Hgb 15.9 g/dL (14.0-18.0) 06/10/19 05:50 Hct 46.2 % (42.0-52.0) 06/10/19 05:50 MCV 90.9 fL (80.0-94.0) 06/10/19 05:50 MCH 31.3 pg (27.0-31.0) H 06/10/19 05:50 MCHC 34.4 g/dL (32.0-36.0) 06/10/19 05:50 RDW 13.1 % (12.0-15.0) 06/10/19 05:50 Plt Count 218 10^3/uL (130-450) 06/10/19 05:50 MPV 10.0 fL (7.4-11.4) 06/10/19 05:50 Neut # (Auto) 12.2 10^3/uL (1.5-6.6) H 06/10/19 05:50 Lymph # (Auto) 0.7 10^3/uL (1.5-3.5) L 06/10/19 05:50 [place] # (Auto) 1.0 10^3/uL (0.0-1.0) 06/10/19 05:50 Eos # (Auto) 0.0 10^3/uL (0.0-0.7) 06/10/19 05:50 Baso # (Auto) 0.0 10^3/uL (0.0-0.1) 06/10/19 05:50 Absolute Nucleated RBC 0.00 x10^3/uL 06/10/19 05:50 Nucleated RBC % 0.0 /100WBC 06/10/19 05:50 VBG pH 7.401 (7.31-7.41) 06/09/19 15:39 VBG pCO2 30.6 mmHg (41-51) L 06/09/19 15:39 VBG pO2 42.3 mmHg (25-47) 06/09/19 15:39 VBG HCO3 18.6 mmol/L (23-28) L 06/09/19 15:39 VBG Total CO2 19.5 mmol/L (24-29) L 06/09/19 15:39 VBG O2 Saturation 81.4 % (60-80) H 06/09/19 15:39 VBG Base Excess -4.7 mmol/L (-2 - +2) L 06/09/19 15:39 Sodium 138 mmol/L (135-145) 06/10/19 05:50 Potassium 3.6 mmol/L (3.5-5.0) 06/10/19 05:50 Chloride 105 mmol/L (101-111) 06/10/19 05:50 Carbon Dioxide 21 mmol/L (21-32) 06/10/19 05:50 Anion Gap 12.0 (6-13) 06/10/19 05:50 BUN 43 mg/dL (6-20) H 06/10/19 05:50 Creatinine 1.5 mg/dL (0.6-1.2) H 06/10/19 05:50 Estimated GFR (MDRD) 47 (>89) L 06/10/19 05:50 Glucose 376 mg/dL (70-100) H 06/10/19 05:50 POC Whole Bld Glucose 297 mg/dL (70 - 100) H 06/10/19 05:57 Glycated Hemoglobin 8.1 % (4.6-6.2) H 06/09/19 15:39 Estim Average Glucose 186 (70-100) H 06/09/19 15:39 Calcium 9.0 mg/dL (8.5-10.3) 06/10/19 05:50 Phosphorus 3.0 mg/dL (2.5-4.6) 06/10/19 05:50 Magnesium 2.0 mg/dL (1.7-2.8) 06/10/19 05:50 Total Bilirubin 1.9 mg/dL (0.2-1.0) H 06/09/19 15:39 AST 44 IU/L (10-42) H 06/09/19 15:39 ALT 33 IU/L (10-60) 06/09/19 15:39 Alkaline Phosphatase 78 IU/L (42-121) 06/09/19 15:39 Total Protein 7.9 g/dL (6.7-8.2) 06/09/19 15:39 Albumin 4.9 g/dL (3.2-5.5) 06/09/19 15:39 Globulin 3.0 g/dL (2.1-4.2) 06/09/19 15:39 Albumin/Globulin Ratio 1.6 (1.0-2.2) 06/09/19 15:39 Triglycerides 134 mg/dL (-149) 06/10/19 05:50 Lipase 16 U/L (22-51) L 06/09/19 15:39 Urine Color YELLOW 06/09/19 18:25 Urine Clarity CLEAR (CLEAR) 06/09/19 18:25 Urine pH 5.5 PH (5.0-7.5) 06/09/19 18:25 Ur Specific [place] 1.025 (1.002-1.030) 06/09/19 18:25 Urine Protein 100 mg/dL (NEGATIVE) H 06/09/19 18:25 Urine Glucose (UA) >=1000 mg/dL (NEGATIVE) H 06/09/19 18:25 Urine Ketones 40 mg/dL (NEGATIVE) H 06/09/19 18:25 Urine Occult Blood LARGE (NEGATIVE) H 06/09/19 18:25 Urine Nitrite NEGATIVE (NEGATIVE) 06/09/19 18:25 Urine Bilirubin NEGATIVE (NEGATIVE) 06/09/19 18:25 Urine Urobilinogen 0.2 (NORMAL) E.U./dL (NORMAL) 06/09/19 18:25 Ur Leukocyte Esterase NEGATIVE (NEGATIVE) 06/09/19 18:25 Urine RBC 0-5 /HPF (0-5) 06/09/19 18:25 Urine WBC 0-3 /HPF (0-3) 06/09/19 18:25 Ur Squamous Epith Cells NONE SEEN (<= Few) 06/09/19 18:25 Urine Bacteria None Seen /HPF (None Seen) 06/09/19 18:25 Ur Microscopic Review INDICATED 06/09/19 18:25 Urine Culture Comments NOT INDICATED 06/09/19 18:25 Nasal Screen MRSA (PCR) NEGATIVE (NEGATIVE) 06/09/19 16:20 Urine Opiates Screen NEGATIVE (NEGATIVE) 06/09/19 18:25 Ur Oxycodone Screen NEGATIVE (NEGATIVE) 06/09/19 18:25 Urine Methadone Screen NEGATIVE (NEGATIVE) 06/09/19 18:25 Ur Propoxyphene Screen NEGATIVE (NEGATIVE) 06/09/19 18:25 Ur Barbiturates Screen NEGATIVE (NEGATIVE) 06/09/19 18:25 Ur Tricyclics Screen NEGATIVE (NEGATIVE) 06/09/19 18:25 Ur Phencyclidine Scrn NEGATIVE (NEGATIVE) 06/09/19 18:25 Ur Amphetamine Screen NEGATIVE (NEGATIVE) 06/09/19 18:25 U Methamphetamines Scrn NEGATIVE (NEGATIVE) 06/09/19 18:25 U Benzodiazepines Scrn NEGATIVE (NEGATIVE) 06/09/19 18:25 Urine Cocaine Screen NEGATIVE (NEGATIVE) 06/09/19 18:25 U Cannabinoids Screen POSITIVE (NEGATIVE) H 06/09/19 18:25 Serum Ketones NEGATIVE (NEGATIVE) 06/10/19 05:50
[2019-06-10] MEDS: FAMOTIDINE 20 MG/2 ML VIAL IVP SCH ×2 (10:04→21:01)
[2019-06-10] MEDS: TAMSULOSIN 0.4 MG CAPSULE PO SCH (10:04)
[2019-06-10] MEDS: SODIUM CHLORIDE FLUSH 0.9% 10 ML SYRINGE IVP SCH ×2 (10:04→17:48)
--- NOTE | 2019-06-10 10:40 | PHARMACY PROGRESS NOTE ---
- Best Possible Medication History Admit Date and Time: 06/09/19 1723 Processed by: Pharmacy Medication History completed: Yes Patient Interview: Completed Secondary Source(s): Prescription bottles As the person ultimately responsible for medication therapy, providers are able to order a medication from an existing home medication list in [facility] via the "Reconcile Routine" prior to Confirmation of that medication by passport support manager. Such practice is discouraged except when the physician, in their clinical judgment, deems that a medical need exists for a medication without regard to previous use.
[2019-06-10] MEDS ORDERED: LOSARTAN 50 MG TABLET PO SCH (12:05)
[2019-06-10] MEDS: INSULIN REGULAR HUMAN 300 UNIT/3 ML VIAL SUBQ SCH ×3 (12:24→23:52)
[2019-06-10] MEDS: PROCHLORPERAZINE 10 MG/2 ML VIAL IVP PRN ×2 (12:30→19:40)
[2019-06-10] MEDS ORDERED: hydrALAZINE INJ 20 MG/ML VIAL IVP PRN (15:37)
[2019-06-10] MEDS ORDERED: INSULIN REGULAR HUMAN 100 UNIT in SODIUM CHLORIDE 0.9% 100ML 99 ML IV SCH (16:00)
[2019-06-10] MEDS: LORazepam 0.5 MG TABLET PO PRN (17:49)
[2019-06-10] MEDS ORDERED: LORazepam 2 MG/ML VIAL IVP STA (19:28)
[2019-06-10] MEDS: hydrALAZINE INJ 20 MG/ML VIAL IVP SCH (19:57)
[2019-06-10] MEDS: ATORVASTATIN 40 MG TABLET PO SCH (21:01)
[2019-06-10] MEDS: INSULIN NPH HUMAN 300 UNIT/3 ML VIAL SUBQ SCH (21:02)
[2019-06-11] MEDS: LORazepam 0.5 MG TABLET PO PRN ×3 (00:08→11:55)
[2019-06-11] MEDS ORDERED: LORazepam 2 MG/ML VIAL IVP STA ×2 (00:16→00:33)
[2019-06-11] MEDS: SODIUM CHLORIDE 0.9% 1,000 ML IV SCH ×4 (00:51→23:51)
--- NOTE | 2019-06-11 00:56 | ANESTHESIA PROCEDURE NOTE ---
Diagnosis: poor IV access Procedure: PICC placement Height and Weight: Height 6 ft 2 in Weight (kg) 108 kg Body Mass Index 29.9 Vital Signs: Temp Pulse Resp BP Pulse Ox 37 C 87 10 L 121/78 97 06/10/19 21:00 06/10/19 23:05 06/10/19 23:05 06/10/19 23:05 06/10/19 23:05 Allergies No Known Drug Allergies Allergy (Verified 06/09/19 00:55) ASA classification: 3-Severe systemic disease Is this case an emergency?: No Anes. Monitoring and Equipment: Non-invasive BP, Pulse oximetery, All ports aspirate blood, Sterile prep and drape Anes. Procedure Start Time: 00:08 Anes. Procedure Stop Time: 00:43 Procedure Notes: PICC line requested by the hospitalist for this patient. Benefits and risks associated with the picc line placement discussed with the patient. All his questions were answered. He agreed to proceed and signed the consent. Clorohexidine x3 used to clean the site.Sterile prep and drapes used. US guidance used for the line placement.Right basilic vein identified. lidocain for skin anesthetic. 7 [place] double lumen PICC used. sterility maintained through out the procedure. Patient tolerated the procedure well. Standard monitors were in use. x Ray obtained. PICC about 45 cm in and 5 out at the skin. Picc secured and taped.
[2019-06-11] MEDS: diphenhydrAMINE 25 MG CAPSULE PO PRN (01:00)
[2019-06-11] MEDS: METOCLOPRAMIDE 10 MG/2 ML VIAL IVP SCH ×5 (01:03→23:47)
[2019-06-11] MEDS: SODIUM CHLORIDE FLUSH 0.9% 10 ML SYRINGE IVP SCH ×4 (01:04→17:47)
--- NOTE | 2019-06-11 01:08 | XRAY Report ---
Reason: Line placement Procedure Date: 06/11/2019 Accession Number: [id number] / [id number] Procedure: XR - Chest for Line Placement CPT Code: Final Report FULL RESULT: EXAM: CHEST RADIOGRAPHY EXAM DATE: 06/11/2019 12:54 AM. CLINICAL HISTORY: Line placement. PICC line placement. COMPARISON: CHEST 1 VIEW 06/09/2019 5:47 PM. TECHNIQUE: 1 view. FINDINGS: Lungs/Pleura: No focal opacities evident. No pleural effusion. No pneumothorax. Left costophrenic angle excluded from the image. Mediastinum: Within exam limitations, the cardiomediastinal contour is normal. Other: Limited visualization of the tip of the PICC line due to overlapping leads. The farthest so I can see the PICC line is in the right atrium located approximately 4 cm below the superior vena cava/right atrial junction. This PICC line can be packed pulled back by 4 cm, and a follow-up x-ray could be obtained to reevaluate the location of the tip. IMPRESSION: Limited visualization of the tip of the PICC line due to overlapping leads. The farthest so I can see the PICC line is in the right atrium located approximately 4 cm below the superior vena cava/right atrial junction. This PICC line can be packed pulled back by 4 cm, and a follow-up x-ray could be obtained to reevaluate the location of the tip. No acute cardiopulmonary disease seen. RAD[facility]
[2019-06-11] MEDS: hydrALAZINE INJ 20 MG/ML VIAL IVP SCH ×4 (02:06→17:55)
[2019-06-11] MEDS: SODIUM CHLORIDE FLUSH 0.9% 10 ML SYRINGE IVP PRN ×3 (03:59→05:53)
[2019-06-11] MEDS: PROCHLORPERAZINE 10 MG/2 ML VIAL IVP PRN (03:59)
[2019-06-11 05:39] LABS: BASOPHILS % (AUTO) 0.2 %; HGB - HEMOGLOBIN 15.2 g/dL (14.0-18.0); LYMPHOCYTES # (AUTO) 0.9 10^3/uL (1.5-3.5); MEAN CORPUSCULAR HEMOGLOBIN 31.7 pg (27.0-31.0); MEAN CORPUSCULAR HGB CONC 34.4 g/dL (32.0-36.0); MEAN CORPUSCULAR VOLUME 92.1 fL (80.0-94.0); MEAN PLATELET VOLUME 10.5 fL (7.4-11.4); MONOCYTES # (AUTO) 1.3 10^3/uL (0.0-1.0); MONOCYTES % (AUTO) 10.2 %; NEUTROPHILS % (AUTO) 82.1 %; PLT - PLATELET COUNT 210 10^3/uL (130-450); RED CELL DISTRIBUTION WIDTH 13.2 % (12.0-15.0); WHITE BLOOD COUNT 12.2 x10^3/uL (4.8-10.8)
[2019-06-11 05:48] LABS: CALCIUM 8.9 mg/dL (8.5-10.3); CREATININE 1.4 mg/dL (0.6-1.2)
[2019-06-11] MEDS: INSULIN REGULAR HUMAN 300 UNIT/3 ML VIAL SUBQ SCH ×4 (05:56→23:47)
[2019-06-11] MEDS ORDERED: carvediloL 12.5 MG TABLET PO SCH (08:00)
[2019-06-11] MEDS: FAMOTIDINE 20 MG/2 ML VIAL IVP SCH ×2 (08:10→20:44)
[2019-06-11] MEDS: LOSARTAN 50 MG TABLET PO SCH (08:19)
[2019-06-11] MEDS: TAMSULOSIN 0.4 MG CAPSULE PO SCH (08:19)
[2019-06-11] MEDS: SCOPOLAMINE PATCH TOP SCH (08:49)
[2019-06-11] MEDS: INSULIN NPH HUMAN 300 UNIT/3 ML VIAL SUBQ SCH ×2 (08:51→20:45)
[2019-06-11] MEDS: carvediloL 12.5 MG TABLET PO SCH ×2 (09:07→20:44)
--- NOTE | 2019-06-11 12:40 | PROVIDER PROGRESS NOTE ---
Assessment/Plan - Problem List (1) DKA (diabetic ketoacidoses) Qualifiers: Diabetes mellitus type: type 1 Assessment/Plan: Cleared and he is tolerating clear liquids. Will start to transition to meals and his type of Insulin (2) Gastroparesis diabeticorum Assessment/Plan: N/V cleared, Scopalamine patch was started this a.m. to see if it would help. Will slowly transition to po meds and diet, as tolerated. (3) Hypertension, uncontrolled Assessment/Plan: He needed scheduled Hydralazine iv, then BP controlled overnight. This a.m. it was again 200's as he was restless. He denied alcohol abuse or use to his RN. He did get Ativan po which made him fall asleep and his BP normalized. Will continue iv Hydralazine and the Carvedilol was increased from daily to bid last evening and continue the higher dose of Losartan which was also increased last night by the Clerk Guide. Echo is pending to evaluate the (new) murmur>>> Echo done and shows severe LVH with an intra-cavitary LV gradient. This signifies volume depletion and also probable longstanding HTN that has produced LVH. For these LVH ventricles, B-blockers, ACEs and ARBs can slowly diminish the hypertrophy. The LVEF is normal and there is Grade 2 diastolic dysfunction by echo as well. The S4 gallop that I heard today is consistent with diastolic stiffness from the severe LVH. (4) Newly recognized murmur Assessment/Plan: Echo was done today and shows severe LVH with an intra-cavitary LV gradient. This signifies volume depletion and also probable longstanding HTN that has produced LVH. For these LVH ventricles, B-blockers, ACEs and ARBs can slowly diminish the hypertrophy. The LVEF is normal and there is Grade 2 diastolic dysfunction by echo as well. The S4 gallop I heard is consistent with diastolic stiffness from the severe LVH. Will give a saline bolus to increase intravascular volume which will decrease the gradient. Continue iv hydration too. Avoid diuretics. Continuem the higher Carvedilol and Losartan doses. (5) Acute kidney injury superimposed on CKD Assessment/Plan: Improving BUN/creat daily, suggests he had ATN from severe volume depletion. Continue iv hydration. Monitor BMP daily. (7) Anxiety Assessment/Plan: Will request a SW consult, since we are suspecting alcohol use, which he denied. - Current Meds Current Meds: Current Medications Generic Name Dose Route Start Last Admin Trade Name Freq PRN Reason Stop Dose Admin Atorvastatin Calcium 40 mg 06/10/19 21:00 06/10/19 21:01 Lipitor PO 40 mg QPM NATHANIEL Administration Carvedilol 25 mg 06/10/19 21:00 06/11/19 09:07 Coreg PO 25 mg BID NATHANIEL Administration Diphenhydramine HCl 25 mg 06/10/19 22:41 06/11/19 01:00 Benadryl PO 25 mg QPM PRN Administration Insomnia Famotidine 20 mg 06/09/19 21:00 06/11/19 08:10 Pepcid IVP 20 mg BID NATHANIEL Administration Hydralazine HCl 10 mg 06/11/19 09:00 06/11/19 12:05 Apresoline Inj IVP 10 mg Q8H NATHANIEL Administration Sodium Chloride 1,000 mls @ 125 mls/hr 06/10/19 07:00 06/11/19 08:10 Normal Saline 0.9% IV 125 mls/hr .Q8H NATHANIEL Administration Insulin Human NPH 20 unit 06/10/19 21:00 06/11/19 08:51 Humulin N SUBQ 20 unit BID NATHANIEL Administration Insulin Human Regular 3 - 11 unit 06/10/19 12:00 06/11/19 12:01 Humulin R SUBQ 5 unit Q6HR NATHANIEL Administration Protocol Lorazepam 0.5 mg 06/10/19 16:19 06/11/19 11:55 Ativan PO 0.5 mg Q6H PRN Administration Anxiety Losartan Potassium 100 mg 06/11/19 08:00 06/11/19 08:19 Cozaar PO 100 mg 0800 NATHANIEL Administration Metoclopramide HCl 5 mg 06/09/19 23:45 06/11/19 11:55 Reglan Inj IVP 5 mg Q6H NATHANIEL Administration Ondansetron HCl 4 mg 06/09/19 17:33 06/10/19 21:37 Zofran Inj IVP 4 mg Q6HR PRN Administration Nausea / Vomiting Prochlorperazine Edisylate 10 mg 06/10/19 12:01 06/11/19 03:59 Compazine Inj IVP 10 mg Q6HR PRN Administration Nausea / Vomiting Scopolamine HBr 1 patch 06/11/19 09:00 06/11/19 08:49 Transderm-Scop TOP 1 patch Q3D NATHANIEL Administration Sodium Chloride 10 ml 06/09/19 17:33 06/11/19 05:53 Normal Saline Flush 0.9% IVP 10 ml PRN PRN Administration NEEDED PER PROVIDER ORDERS Sodium Chloride 10 ml 06/10/19 01:00 06/11/19 08:11 Normal Saline Flush 0.9% IVP 10 ml 0100,0900,1700 NATHANIEL Administration Tamsulosin HCl 0.4 mg 06/10/19 09:00 06/11/19 08:19 Flomax PO 0.4 mg DAILY NATHANIEL Administration - Lab Result Fish Bone Diagrams: 06/11/19 04:46 06/11/19 04:46 - Additional Planning My Orders: My Active Orders 06/10/19 12:01 Prochlorperazine Inj [Compazine Inj] 10 mg IVP Q6HR PRN 06/10/19 16:19 LORazepam [Ativan] 0.5 mg PO Q6H PRN 06/10/19 21:00 Insulin NPH Human [Humulin N] 20 unit SUBQ BID 06/11/19 08:00 Losartan [Cozaar] 100 mg PO 0800 06/11/19 09:00 Scopolamine Patch [Transderm-Scop] 1 patch TOP Q3D hydrALAZINE INJ [Apresoline Inj] 10 mg IVP Q8H 06/11/19 Lunch Clear Liquid Diet [DIET] Subjective - Subjective Patient Reports: Other (Sleeping) Nursing Reports: Other (RN reports he was restless and head was tremulous, asked him if he drinkd alcohol and he denied, Ativan po given and he is asleeping now. No more N/V today, tolerated clear liquids.) Objective Vital Signs: Vital Signs - 24 hr 06/10/19 06/10/19 06/10/19 13:00 14:00 15:04 Temperature Heart Rate [ 98 95 101 H Monitoring electrodes] Respiratory 16 15 16 Rate Blood Pressure Blood Pressure [Left Brachial artery] Blood Pressure 165/91 H 126/87 H 224/127 H [Right Brachial artery] O2 Saturation 95 98 100 06/10/19 06/10/19 06/10/19 15:15 15:56 16:00 Temperature Heart Rate [ 104 H 107 H Monitoring electrodes] Respiratory 20 23 Rate Blood Pressure 231/113 H Blood Pressure [Left Brachial artery] Blood Pressure 229/124 H 227/121 H [Right Brachial artery] O2 Saturation 100 98 06/10/19 06/10/19 06/10/19 16:05 16:10 16:15 Temperature Heart Rate [ 96 95 94 Monitoring electrodes] Respiratory Rate Blood Pressure Blood Pressure [Left Brachial artery] Blood Pressure 205/103 H 155/78 H 129/88 H [Right Brachial artery] O2 Saturation 06/10/19 06/10/19 06/10/19 16:30 16:45 17:19 Temperature Heart Rate [ 95 90 93 Monitoring electrodes] Respiratory 16 Rate Blood Pressure Blood Pressure [Left Brachial artery] Blood Pressure 132/81 H 135/74 H 128/74 [Right Brachial artery] O2 Saturation 97 06/10/19 06/10/19 06/10/19 17:35 18:00 18:15 Temperature Heart Rate [ 105 H 98 Monitoring electrodes] Respiratory 13 17 Rate Blood Pressure 128/74 Blood Pressure [Left Brachial artery] Blood Pressure 244/128 H 234/116 H [Right Brachial artery] O2 Saturation 100 99 06/10/19 06/10/19 06/10/19 18:30 18:45 19:00 Temperature Heart Rate [ 98 98 99 Monitoring electrodes] Respiratory 15 16 16 Rate Blood Pressure Blood Pressure [Left Brachial artery] Blood Pressure 258/136 H 255/137 H 239/126 H [Right Brachial artery] O2 Saturation 99 100 98 06/10/19 06/10/19 06/10/19 19:47 19:50 19:55 Temperature Heart Rate [ 97 94 Monitoring electrodes] Respiratory 15 10 L Rate Blood Pressure Blood Pressure [Left Brachial artery] Blood Pressure 176/102 H 152/94 H 130/78 [Right Brachial artery] O2 Saturation 97 97 06/10/19 06/10/19 06/10/19 19:57 20:00 20:15 Temperature Heart Rate [ 93 92 Monitoring electrodes] Respiratory 13 12 Rate Blood Pressure 152/94 H Blood Pressure [Left Brachial artery] Blood Pressure 113/81 H 130/83 H [Right Brachial artery] O2 Saturation 98 97 06/10/19 06/10/19 06/10/19 20:30 20:48 21:00 Temperature 37 C Heart Rate [ 87 86 105 H Monitoring electrodes] Respiratory 14 15 17 Rate Blood Pressure Blood Pressure [Left Brachial artery] Blood Pressure 111/67 115/69 157/91 H [Right Brachial artery] O2 Saturation 95 96 100 06/10/19 06/10/19 06/10/19 22:02 23:05 23:10 Temperature Heart Rate [ 95 87 86 Monitoring electrodes] Respiratory 10 L 10 L 11 L Rate Blood Pressure Blood Pressure [Left Brachial artery] Blood Pressure 192/98 H 121/78 103/69 [Right Brachial artery] O2 Saturation 100 97 96 06/10/19 06/10/19 06/10/19 23:15 23:30 23:45 Temperature Heart Rate [ 86 85 84 Monitoring electrodes] Respiratory 13 11 L 12 Rate Blood Pressure Blood Pressure [Left Brachial artery] Blood Pressure 118/66 115/74 107/82 H [Right Brachial artery] O2 Saturation 96 97 96 06/11/19 06/11/19 06/11/19 00:35 00:40 00:45 Temperature Heart Rate [ 91 92 92 Monitoring electrodes] Respiratory 12 15 14 Rate Blood Pressure Blood Pressure [Left Brachial artery] Blood Pressure 221/116 H 218/121 H 213/111 H [Right Brachial artery] O2 Saturation 99 99 94 06/11/19 06/11/19 06/11/19 01:00 01:05 01:15 Temperature Heart Rate [ 94 89 85 Monitoring electrodes] Respiratory 20 14 16 Rate Blood Pressure Blood Pressure [Left Brachial artery] Blood Pressure 218/99 H 157/80 H 94/70 [Right Brachial artery] O2 Saturation 94 99 91 L 06/11/19 06/11/19 06/11/19 01:30 01:32 02:00 Temperature Heart Rate [ 84 84 83 Monitoring electrodes] Respiratory 16 16 10 L Rate Blood Pressure Blood Pressure [Left Brachial artery] Blood Pressure 101/64 111/70 133/84 H [Right Brachial artery] O2 Saturation 90 L 94 97 06/11/19 06/11/19 06/11/19 02:05 02:06 02:19 Temperature Heart Rate [ 83 83 Monitoring electrodes] Respiratory 15 16 Rate Blood Pressure 133/84 H Blood Pressure [Left Brachial artery] Blood Pressure 125/80 119/71 [Right Brachial artery] O2 Saturation 96 99 06/11/19 06/11/19 06/11/19 02:26 02:45 03:03 Temperature Heart Rate [ 83 82 83 Monitoring electrodes] Respiratory 13 13 13 Rate Blood Pressure Blood Pressure [Left Brachial artery] Blood Pressure 108/68 116/71 126/65 [Right Brachial artery] O2 Saturation 98 98 99 06/11/19 06/11/19 06/11/19 04:01 05:03 06:00 Temperature 36.5 C Heart Rate [ 94 96 88 Monitoring electrodes] Respiratory 14 14 16 Rate Blood Pressure Blood Pressure [Left Brachial artery] Blood Pressure 184/92 H 182/107 H 178/104 H [Right Brachial artery] O2 Saturation 98 99 96 06/11/19 06/11/19 06/11/19 07:03 08:00 09:04 Temperature 36.8 C Heart Rate [ 86 90 90 Monitoring electrodes] Respiratory 16 12 16 Rate Blood Pressure Blood Pressure [Left Brachial artery] Blood Pressure 100/72 135/75 H 186/95 H [Right Brachial artery] O2 Saturation 96 99 99 06/11/19 06/11/19 06/11/19 10:00 11:00 12:00 Temperature 36.4 C L Heart Rate [ 89 86 92 Monitoring electrodes] Respiratory 15 18 17 Rate Blood Pressure Blood Pressure 118/62 140/79 H 199/107 H [Left Brachial artery] Blood Pressure [Right Brachial artery] O2 Saturation 96 100 100 06/11/19 06/11/19 06/11/19 12:05 12:10 12:15 Temperature Heart Rate [ 90 90 Monitoring electrodes] Respiratory Rate Blood Pressure 199/107 H Blood Pressure 200/106 H 145/75 H [Left Brachial artery] Blood Pressure [Right Brachial artery] O2 Saturation 06/11/19 06/11/19 12:20 12:30 Temperature Heart Rate [ 88 87 Monitoring electrodes] Respiratory Rate Blood Pressure Blood Pressure 139/70 H 119/68 [Left Brachial artery] Blood Pressure [Right Brachial artery] O2 Saturation Oxygen O2 Source Nasal cannula I&O (Last 24 Hrs): Intake and Output Totals x24h 06/09/19 06/10/19 06/11/19 23:59 23:59 23:59 Intake Total 2552.017 5096 1854.583 Output Total 700 2100 200 Balance 5695.323 5466 1654.583 General: Other (Somnolent after Ativan po) HEENT: Mucous membr. moist/pink Neck: Supple, No JVD Neuro: Other (Somnolent now, was restless this a.m. like yesterday) Cardiovascular: Regular rate, Other (2/6 systolic murmur heard throughout the precordium, loudest at apex. Possibly also has an S4.) Respiratory: No respiratory distress, Breath sounds nml Abdomen: Soft Extremities: No edema - Results Results: Laboratory Results WBC 12.2 x10^3/uL (4.8-10.8) H 06/11/19 04:46 RBC 4.80 10^6/uL (4.70-6.10) 06/11/19 04:46 Hgb 15.2 g/dL (14.0-18.0) 06/11/19 04:46 Hct 44.2 % (42.0-52.0) 06/11/19 04:46 MCV 92.1 fL (80.0-94.0) 06/11/19 04:46 MCH 31.7 pg (27.0-31.0) H 06/11/19 04:46 MCHC 34.4 g/dL (32.0-36.0) 06/11/19 04:46 RDW 13.2 % (12.0-15.0) 06/11/19 04:46 Plt Count 210 10^3/uL (130-450) 06/11/19 04:46 MPV 10.5 fL (7.4-11.4) 06/11/19 04:46 Neut # (Auto) 10.0 10^3/uL (1.5-6.6) H 06/11/19 04:46 Lymph # (Auto) 0.9 10^3/uL (1.5-3.5) L 06/11/19 04:46 [place] # (Auto) 1.3 10^3/uL (0.0-1.0) H 06/11/19 04:46 Eos # (Auto) 0.0 10^3/uL (0.0-0.7) 06/11/19 04:46 Baso # (Auto) 0.0 10^3/uL (0.0-0.1) 06/11/19 04:46 Absolute Nucleated RBC 0.00 x10^3/uL 06/11/19 04:46 Nucleated RBC % 0.0 /100WBC 06/11/19 04:46 VBG pH 7.401 (7.31-7.41) 06/09/19 15:39 VBG pCO2 30.6 mmHg (41-51) L 06/09/19 15:39 VBG pO2 42.3 mmHg (25-47) 06/09/19 15:39 VBG HCO3 18.6 mmol/L (23-28) L 06/09/19 15:39 VBG Total CO2 19.5 mmol/L (24-29) L 06/09/19 15:39 VBG O2 Saturation 81.4 % (60-80) H 06/09/19 15:39 VBG Base Excess -4.7 mmol/L (-2 - +2) L 06/09/19 15:39 Sodium 141 mmol/L (135-145) 06/11/19 04:46 Potassium 3.6 mmol/L (3.5-5.0) 06/11/19 04:46 Chloride 104 mmol/L (101-111) 06/11/19 04:46 Carbon Dioxide 26 mmol/L (21-32) 06/11/19 04:46 Anion Gap 11.0 (6-13) 06/11/19 04:46 BUN 39 mg/dL (6-20) H 06/11/19 04:46 Creatinine 1.4 mg/dL (0.6-1.2) H 06/11/19 04:46 Estimated GFR (MDRD) 51 (>89) L 06/11/19 04:46 Glucose 208 mg/dL (70-100) H 06/11/19 04:46 POC Whole Bld Glucose 193 mg/dL (70 - 100) H 06/11/19 11:58 Glycated Hemoglobin 8.1 % (4.6-6.2) H 06/09/19 15:39 Estim Average Glucose 186 (70-100) H 06/09/19 15:39 Calcium 8.9 mg/dL (8.5-10.3) 06/11/19 04:46 Phosphorus 3.0 mg/dL (2.5-4.6) 06/10/19 05:50 Magnesium 2.0 mg/dL (1.7-2.8) 06/10/19 05:50 Total Bilirubin 1.9 mg/dL (0.2-1.0) H 06/09/19 15:39 AST 44 IU/L (10-42) H 06/09/19 15:39 ALT 33 IU/L (10-60) 06/09/19 15:39 Alkaline Phosphatase 78 IU/L (42-121) 06/09/19 15:39 Total Protein 7.9 g/dL (6.7-8.2) 06/09/19 15:39 Albumin 4.9 g/dL (3.2-5.5) 06/09/19 15:39 Globulin 3.0 g/dL (2.1-4.2) 06/09/19 15:39 Albumin/Globulin Ratio 1.6 (1.0-2.2) 06/09/19 15:39 Triglycerides 134 mg/dL (-149) 06/10/19 05:50 Lipase 16 U/L (22-51) L 06/09/19 15:39 Urine Color YELLOW 06/09/19 18:25 Urine Clarity CLEAR (CLEAR) 06/09/19 18:25 Urine pH 5.5 PH (5.0-7.5) 06/09/19 18:25 Ur Specific [place] 1.025 (1.002-1.030) 06/09/19 18:25 Urine Protein 100 mg/dL (NEGATIVE) H 06/09/19 18:25 Urine Glucose (UA) >=1000 mg/dL (NEGATIVE) H 06/09/19 18:25 Urine Ketones 40 mg/dL (NEGATIVE) H 06/09/19 18:25 Urine Occult Blood LARGE (NEGATIVE) H 06/09/19 18:25 Urine Nitrite NEGATIVE (NEGATIVE) 06/09/19 18:25 Urine Bilirubin NEGATIVE (NEGATIVE) 06/09/19 18:25 Urine Urobilinogen 0.2 (NORMAL) E.U./dL (NORMAL) 06/09/19 18:25 Ur Leukocyte Esterase NEGATIVE (NEGATIVE) 06/09/19 18:25 Urine RBC 0-5 /HPF (0-5) 06/09/19 18:25 Urine WBC 0-3 /HPF (0-3) 06/09/19 18:25 Ur Squamous Epith Cells NONE SEEN (<= Few) 06/09/19 18:25 Urine Bacteria None Seen /HPF (None Seen) 06/09/19 18:25 Ur Microscopic Review INDICATED 06/09/19 18:25 Urine Culture Comments NOT INDICATED 06/09/19 18:25 Nasal Screen MRSA (PCR) NEGATIVE (NEGATIVE) 06/09/19 16:20 Urine Opiates Screen NEGATIVE (NEGATIVE) 06/09/19 18:25 Ur Oxycodone Screen NEGATIVE (NEGATIVE) 06/09/19 18:25 Urine Methadone Screen NEGATIVE (NEGATIVE) 06/09/19 18:25 Ur Propoxyphene Screen NEGATIVE (NEGATIVE) 06/09/19 18:25 Ur Barbiturates Screen NEGATIVE (NEGATIVE) 06/09/19 18:25 Ur Tricyclics Screen NEGATIVE (NEGATIVE) 06/09/19 18:25 Ur Phencyclidine Scrn NEGATIVE (NEGATIVE) 06/09/19 18:25 Ur Amphetamine Screen NEGATIVE (NEGATIVE) 06/09/19 18:25 U Methamphetamines Scrn NEGATIVE (NEGATIVE) 06/09/19 18:25 U Benzodiazepines Scrn NEGATIVE (NEGATIVE) 06/09/19 18:25 Urine Cocaine Screen NEGATIVE (NEGATIVE) 06/09/19 18:25 U Cannabinoids Screen POSITIVE (NEGATIVE) H 06/09/19 18:25 Serum Ketones NEGATIVE (NEGATIVE) 06/10/19 05:50
[2019-06-11] MEDS ORDERED: SODIUM CHLORIDE 0.9% 500 ML IV ONE (15:46)
[2019-06-11] MEDS: ATORVASTATIN 40 MG TABLET PO SCH (20:44)
[2019-06-12] MEDS: hydrALAZINE INJ 20 MG/ML VIAL IVP SCH ×2 (00:14→12:17)
[2019-06-12] MEDS: SODIUM CHLORIDE FLUSH 0.9% 10 ML SYRINGE IVP SCH ×4 (00:17→23:50)
[2019-06-12] MEDS: diphenhydrAMINE 25 MG CAPSULE PO PRN ×2 (00:26→23:54)
[2019-06-12] MEDS: LORazepam 0.5 MG TABLET PO PRN ×2 (00:41→23:54)
[2019-06-12] MEDS: PROCHLORPERAZINE 10 MG/2 ML VIAL IVP PRN ×2 (03:26→09:45)
[2019-06-12] MEDS: METOCLOPRAMIDE 10 MG/2 ML VIAL IVP SCH ×4 (05:54→23:49)
[2019-06-12] MEDS: INSULIN REGULAR HUMAN 300 UNIT/3 ML VIAL SUBQ SCH ×3 (05:55→18:49)
[2019-06-12 07:35] LABS: CALCIUM 8.4 mg/dL (8.5-10.3); CREATININE 1.1 mg/dL (0.6-1.2)
[2019-06-12 07:38] LABS: BASOPHILS % (AUTO) 0.2 %; EOSINOPHILS % (AUTO) 0.1 %; HGB - HEMOGLOBIN 14.7 g/dL (14.0-18.0); LYMPHOCYTES # (AUTO) 1.1 10^3/uL (1.5-3.5); LYMPHOCYTES % (AUTO) 11.6 %; MEAN CORPUSCULAR HEMOGLOBIN 31.7 pg (27.0-31.0); MEAN CORPUSCULAR HGB CONC 33.9 g/dL (32.0-36.0); MEAN CORPUSCULAR VOLUME 93.5 fL (80.0-94.0); MEAN PLATELET VOLUME 9.8 fL (7.4-11.4); MONOCYTES % (AUTO) 10.1 %; NEUTROPHILS # (AUTO) 7.4 10^3/uL (1.5-6.6); NEUTROPHILS % (AUTO) 77.5 %; PLT - PLATELET COUNT 180 10^3/uL (130-450); RED BLOOD COUNT 4.63 10^6/uL (4.70-6.10); RED CELL DISTRIBUTION WIDTH 13.2 % (12.0-15.0); WHITE BLOOD COUNT 9.6 x10^3/uL (4.8-10.8)
[2019-06-12] MEDS: SODIUM CHLORIDE 0.9% 1,000 ML IV SCH ×2 (07:57→18:48)
[2019-06-12] MEDS: LOSARTAN 50 MG TABLET PO SCH (07:58)
[2019-06-12] MEDS: TAMSULOSIN 0.4 MG CAPSULE PO SCH (08:27)
[2019-06-12] MEDS: FAMOTIDINE 20 MG/2 ML VIAL IVP SCH ×2 (08:27→20:33)
[2019-06-12] MEDS: INSULIN NPH HUMAN 300 UNIT/3 ML VIAL SUBQ SCH ×2 (09:06→20:43)
[2019-06-12 09:08] LABS: MAGNESIUM 1.9 mg/dL (1.7-2.8); PHOSPHORUS 2.8 mg/dL (2.5-4.6)
[2019-06-12] MEDS: THIAMINE 100 MG TABLET PO SCH (09:09)
[2019-06-12] MEDS: carvediloL 12.5 MG TABLET PO SCH ×2 (09:09→20:33)
[2019-06-12] MEDS: POTASSIUM CHLOR 20 MEQ/100 ML 20 MEQ/100 ML BAG IV SCH ×2 (09:16→10:21)
[2019-06-12 10:42] LABS: ALBUMIN 3.6 g/dL (3.2-5.5); BILIRUBIN,DIRECT 0.2 mg/dL (0.1-0.5); BILIRUBIN,TOTAL 1.6 mg/dL (0.2-1.0)
--- NOTE | 2019-06-12 12:25 | PROVIDER PROGRESS NOTE ---
Assessment/Plan - Problem List (1) DKA (diabetic ketoacidoses) Qualifiers: Diabetes mellitus type: type 1 Assessment/Plan: His ketones cleared but diet could not be resumed due to prolonged N/V (from gastroparesis), see #2. Will advance to a carb-controlled soft diet today and adjust his NPH Insulin up, and continue ss Reg Insulin coverage. Will transfer out of ICU to [facility] bed. The patient has a Diabetic foot appointment tomorrow, that he would like to keep, per the Jacquard Loom Weaver. The SW, Juany, has cancelled and moved his upcoming eye appointment. (2) Gastroparesis diabeticorum Assessment/Plan: Cleared A 72 hour Scopalamine patch was tried yesterday. He tolerated clear liquids without N/V yesterday. Will advance diet (3) Hypertension, uncontrolled Assessment/Plan: His BP has been as high as 230- 260's intermittently while here. Some of those high readings occurred when he was restless, and was asking get OOB and walk around. The RN noticed that he was tremulous yesterday and asked him if he uses alcohol, and he told her "No". The Counter Waitress/Waiter who admitted him, got a Hx of alcohol use of "putting [employer] in his coffee". Ativan was started for "anxiety and restlessness" which puts him to sleep. Last night a CIWA protocol and daily Thiamine were ordered empirically. And today a SW consult will be done to address alcohol abuse and possible withdrawal. His BP control has required increasing his home Losartan dose from 25 mg daily to 100 mg daily, increasing his home dose of Carvedilol 25 mg daily to b.i.d., plus using Hydralazine iv pushes prn. His Echo, done yesterday to evaluate a new murmur showed severe LVH, suggesting that he has had poorly controlled BP for some time now. With the KI present on his labs, will assess for renal artery stenosis with a limited retroperitoneal Doppler order. He is not ready for [facility] today. (4) Newly recognized murmur Assessment/Plan: Echo was done yesterday and showed severe LVH with a small LV cavity with an intra-cavitary LV gradient. This signified volume depletion and also probable longstanding HTN that has produced LVH. He got a 500 cc saline bolus to increase intravascular volume which would decrease the gradient, and in fact today his murmur is gone. Continue mild iv hydration while diet is advancing. Avoid diuretics. (5) Acute kidney injury superimposed on CKD Assessment/Plan: The BUN/creat was 45/1.8 at admission >> 44/1.7 >> 45/1.6 >> 43/1.5 >> 39/1.4 yesterday and 33/1.1 today. Improving BUN/creat daily, suggests he had ATN from severe volume depletion. He got the saline bolus yesterday but was on iv fluid drip since admission. Continue iv hydration. Monitor BMP daily. Renal artery stenosis w/u as above. Will also order urine electrolytes and creat and protein check. Will not start a 24 hour collection for total protein or evaluation for 5HIAA (to check for Pheo). This needs to be done as an outpatient. (6) Hypokalemia due to inadequate potassium intake Assessment/Plan: Due to his renal disease, no K was in replacement fluids. Will correct carefully. Follow BMP daily. (7) BPH (benign prostatic hyperplasia) Assessment/Plan: His home med was ordered to use here (8) Restlessness Assessment/Plan: This was thought to be anxiety at admission but could have a different etiology. He is ordered to receive Benadryl at hs prn insomnia. - Current Meds Current Meds: Current Medications Generic Name Dose Route Start Last Admin Trade Name Freq PRN Reason Stop Dose Admin Atorvastatin Calcium 40 mg 06/10/19 21:00 06/11/19 20:44 Lipitor PO 40 mg QPM NATHANIEL Administration Carvedilol 25 mg 06/10/19 21:00 06/12/19 09:09 Coreg PO 25 mg BID NATHANIEL Administration Diphenhydramine HCl 25 mg 06/10/19 22:41 06/12/19 00:26 Benadryl PO 25 mg QPM PRN Administration Insomnia Famotidine 20 mg 06/09/19 21:00 06/12/19 08:27 Pepcid IVP 20 mg BID NATHANIEL Administration Sodium Chloride 1,000 mls @ 125 mls/hr 06/10/19 07:00 06/12/19 07:57 Normal Saline 0.9% IV 125 mls/hr .Q8H NATHANIEL Administration Insulin Human NPH 20 unit 06/10/19 21:00 06/12/19 09:06 Humulin N SUBQ 20 unit BID NATHANIEL Administration Insulin Human Regular 3 - 11 unit 06/10/19 12:00 06/12/19 12:06 Humulin R SUBQ 3 unit Q6HR NATHANIEL Administration Protocol Lorazepam 0.5 mg 06/10/19 16:19 06/12/19 00:41 Ativan PO 0.5 mg Q6H PRN Administration Anxiety Losartan Potassium 100 mg 06/11/19 08:00 06/12/19 07:58 Cozaar PO 100 mg 0800 NATHANIEL Administration Metoclopramide HCl 5 mg 06/09/19 23:45 06/12/19 12:17 Reglan Inj IVP 5 mg Q6H NATHANIEL Administration Ondansetron HCl 4 mg 06/09/19 17:33 06/10/19 21:37 Zofran Inj IVP 4 mg Q6HR PRN Administration Nausea / Vomiting Prochlorperazine Edisylate 10 mg 06/10/19 12:01 06/12/19 09:45 Compazine Inj IVP 10 mg Q6HR PRN Administration Nausea / Vomiting Scopolamine HBr 1 patch 06/11/19 09:00 06/11/19 08:49 Transderm-Scop TOP 1 patch Q3D NATHANIEL Administration Sodium Chloride 10 ml 06/09/19 17:33 06/11/19 05:53 Normal Saline Flush 0.9% IVP 10 ml PRN PRN Administration NEEDED PER PROVIDER ORDERS Sodium Chloride 10 ml 06/10/19 01:00 06/12/19 08:26 Normal Saline Flush 0.9% IVP 10 ml 0100,0900,1700 NATHANIEL Administration Tamsulosin HCl 0.4 mg 06/10/19 09:00 06/12/19 08:27 Flomax PO 0.4 mg DAILY NATHANIEL Administration Thiamine HCl 100 mg 06/12/19 09:00 06/12/19 09:09 Vitamin B-1 PO 100 mg DAILY NATHANIEL Administration - Lab Result Fish Bone Diagrams: 06/12/19 07:15 06/12/19 07:15 - Additional Planning My Orders: My Active Orders 06/11/19 12:51 Echo Transthoracic Complete [ECHO] Routine 06/12/19 12:15 Transfer [Admit \\ Transfer \\ Status] [RC] .ONCE 06/12/19 12:22 Miscellaenous Nursing Order [RC] QSHIFT 06/12/19 12:23 hydrALAZINE INJ [Apresoline Inj] 10 mg IVP Q6H PRN 06/12/19 Lunch Carb-controlled Diet [DIET] Subjective - Subjective Patient Reports: Resting Comfortably Nursing Reports: Other (Still has poorly controlled BP when awake.) Objective Vital Signs: Vital Signs - 24 hr 06/11/19 06/11/19 06/11/19 12:30 12:45 13:00 Temperature Heart Rate Heart Rate [ 87 80 80 Monitoring electrodes] Respiratory 14 Rate Blood Pressure Blood Pressure 119/68 105/60 101/55 L [Left Brachial artery] O2 Saturation 96 06/11/19 06/11/19 06/11/19 14:00 16:00 17:00 Temperature 37.0 C Heart Rate Heart Rate [ 77 87 85 Monitoring electrodes] Respiratory 13 11 L 12 Rate Blood Pressure Blood Pressure 143/63 H 158/80 H 149/81 H [Left Brachial artery] O2 Saturation 98 96 94 06/11/19 06/11/19 06/11/19 17:55 18:05 18:10 Temperature Heart Rate Heart Rate [ 94 95 Monitoring electrodes] Respiratory Rate Blood Pressure 186/91 H Blood Pressure 172/85 H 163/83 H [Left Brachial artery] O2 Saturation 06/11/19 06/11/19 06/11/19 18:15 18:30 18:45 Temperature Heart Rate Heart Rate [ 102 H 93 100 Monitoring electrodes] Respiratory Rate Blood Pressure Blood Pressure 164/85 H 164/91 H 162/94 H [Left Brachial artery] O2 Saturation 06/11/19 06/11/19 06/11/19 19:00 20:01 21:10 Temperature 36.7 C 36.7 C Heart Rate 84 Heart Rate [ 90 86 87 Monitoring electrodes] Respiratory 25 H 26 H 14 Rate Blood Pressure Blood Pressure 182/107 H 140/76 H 178/98 H [Left Brachial artery] O2 Saturation 98 95 98 06/11/19 06/11/19 06/12/19 22:01 23:00 00:00 Temperature Heart Rate Heart Rate [ 84 79 88 Monitoring electrodes] Respiratory 27 H 17 12 Rate Blood Pressure Blood Pressure 136/81 H 115/81 H 184/114 H [Left Brachial artery] O2 Saturation 97 96 98 06/12/19 06/12/19 06/12/19 00:01 00:13 00:14 Temperature 36.7 C Heart Rate Heart Rate [ 89 88 Monitoring electrodes] Respiratory 14 13 Rate Blood Pressure 183/113 H Blood Pressure 183/113 H 200/100 H [Left Brachial artery] O2 Saturation 98 98 06/12/19 06/12/19 06/12/19 00:15 00:20 00:30 Temperature Heart Rate Heart Rate [ 84 84 93 Monitoring electrodes] Respiratory 13 14 18 Rate Blood Pressure Blood Pressure 199/103 H 162/81 H 172/93 H [Left Brachial artery] O2 Saturation 98 97 98 06/12/19 06/12/19 06/12/19 01:00 01:05 01:10 Temperature Heart Rate Heart Rate [ 89 87 87 Monitoring electrodes] Respiratory 12 13 12 Rate Blood Pressure Blood Pressure 151/81 H 135/79 H 146/75 H [Left Brachial artery] O2 Saturation 98 97 96 06/12/19 06/12/19 06/12/19 01:15 01:30 01:45 Temperature Heart Rate Heart Rate [ 85 84 80 Monitoring electrodes] Respiratory 14 14 23 Rate Blood Pressure Blood Pressure 122/79 123/72 99/60 [Left Brachial artery] O2 Saturation 97 95 95 06/12/19 06/12/19 06/12/19 02:00 03:00 05:00 Temperature Heart Rate Heart Rate [ 79 88 89 Monitoring electrodes] Respiratory 17 14 14 Rate Blood Pressure Blood Pressure 100/63 118/93 H 159/89 H [Left Brachial artery] O2 Saturation 94 98 96 06/12/19 06/12/19 06/12/19 05:15 06:00 07:00 Temperature Heart Rate Heart Rate [ 88 82 97 Monitoring electrodes] Respiratory 13 25 H 15 Rate Blood Pressure Blood Pressure 120/69 118/63 202/107 H [Left Brachial artery] O2 Saturation 95 94 98 06/12/19 06/12/19 06/12/19 08:00 09:00 10:00 Temperature 36.4 C L Heart Rate Heart Rate [ 96 95 84 Monitoring electrodes] Respiratory 15 20 15 Rate Blood Pressure Blood Pressure 210/113 H 185/93 H 129/75 [Left Brachial artery] O2 Saturation 98 97 95 06/12/19 06/12/19 06/12/19 11:00 12:00 12:15 Temperature 36.8 C Heart Rate Heart Rate [ 81 92 92 Monitoring electrodes] Respiratory 16 14 Rate Blood Pressure Blood Pressure 126/81 H 168/133 H 183/114 H [Left Brachial artery] O2 Saturation 95 96 06/12/19 12:17 Temperature Heart Rate Heart Rate [ Monitoring electrodes] Respiratory Rate Blood Pressure 204/117 H Blood Pressure [Left Brachial artery] O2 Saturation Oxygen O2 Source Room air I&O (Last 24 Hrs): Intake and Output Totals x24h 06/10/19 06/11/19 06/12/19 23:59 23:59 23:59 Intake Total 5096 5502.500 2360 Output Total 2100 200 150 Balance 2996 5302.500 2210 General: Other (Sleeping, he awoke and was appropriate.) HEENT: Mucous membr. moist/pink Neck: Supple, No JVD Neuro: Non Focal, Other (Somnolent) Cardiovascular: Regular rate, No murmurs Respiratory: No respiratory distress, Breath sounds nml Abdomen: Soft Extremities: No edema - Results Results: Laboratory Results WBC 9.6 x10^3/uL (4.8-10.8) 06/12/19 07:15 RBC 4.63 10^6/uL (4.70-6.10) L 06/12/19 07:15 Hgb 14.7 g/dL (14.0-18.0) 06/12/19 07:15 Hct 43.3 % (42.0-52.0) 06/12/19 07:15 MCV 93.5 fL (80.0-94.0) 06/12/19 07:15 MCH 31.7 pg (27.0-31.0) H 06/12/19 07:15 MCHC 33.9 g/dL (32.0-36.0) 06/12/19 07:15 RDW 13.2 % (12.0-15.0) 06/12/19 07:15 Plt Count 180 10^3/uL (130-450) 06/12/19 07:15 MPV 9.8 fL (7.4-11.4) 06/12/19 07:15 Neut # (Auto) 7.4 10^3/uL (1.5-6.6) H 06/12/19 07:15 Lymph # (Auto) 1.1 10^3/uL (1.5-3.5) L 06/12/19 07:15 [place] # (Auto) 1.0 10^3/uL (0.0-1.0) 06/12/19 07:15 Eos # (Auto) 0.0 10^3/uL (0.0-0.7) 06/12/19 07:15 Baso # (Auto) 0.0 10^3/uL (0.0-0.1) 06/12/19 07:15 Absolute Nucleated RBC 0.00 x10^3/uL 06/12/19 07:15 Nucleated RBC % 0.0 /100WBC 06/12/19 07:15 VBG pH 7.401 (7.31-7.41) 06/09/19 15:39 VBG pCO2 30.6 mmHg (41-51) L 06/09/19 15:39 VBG pO2 42.3 mmHg (25-47) 06/09/19 15:39 VBG HCO3 18.6 mmol/L (23-28) L 06/09/19 15:39 VBG Total CO2 19.5 mmol/L (24-29) L 06/09/19 15:39 VBG O2 Saturation 81.4 % (60-80) H 06/09/19 15:39 VBG Base Excess -4.7 mmol/L (-2 - +2) L 06/09/19 15:39 Sodium 140 mmol/L (135-145) 06/12/19 07:15 Potassium 3.3 mmol/L (3.5-5.0) L 06/12/19 07:15 Chloride 107 mmol/L (101-111) 06/12/19 07:15 Carbon Dioxide 24 mmol/L (21-32) 06/12/19 07:15 Anion Gap 9.0 (6-13) 06/12/19 07:15 BUN 33 mg/dL (6-20) H 06/12/19 07:15 Creatinine 1.1 mg/dL (0.6-1.2) 06/12/19 07:15 Estimated GFR (MDRD) 68 (>89) L 06/12/19 07:15 Glucose 156 mg/dL (70-100) H 06/12/19 07:15 POC Whole Bld Glucose 174 mg/dL (70 - 100) H 06/12/19 12:04 Glycated Hemoglobin 8.1 % (4.6-6.2) H 06/09/19 15:39 Estim Average Glucose 186 (70-100) H 06/09/19 15:39 Calcium 8.4 mg/dL (8.5-10.3) L 06/12/19 07:15 Phosphorus 2.8 mg/dL (2.5-4.6) 06/12/19 07:15 Magnesium 1.9 mg/dL (1.7-2.8) 06/12/19 07:15 Total Bilirubin 1.6 mg/dL (0.2-1.0) H 06/12/19 04:46 Direct Bilirubin 0.2 mg/dL (0.1-0.5) 06/12/19 04:46 GGT 16 IU/L (8-55) 06/12/19 04:46 AST 25 IU/L (10-42) 06/12/19 04:46 ALT 30 IU/L (10-60) 06/12/19 04:46 Alkaline Phosphatase 57 IU/L (42-121) 06/12/19 04:46 Total Protein 6.0 g/dL (6.7-8.2) L 06/12/19 04:46 Albumin 3.6 g/dL (3.2-5.5) 06/12/19 07:15 Globulin 2.4 g/dL (2.1-4.2) 06/12/19 04:46 Albumin/Globulin Ratio 1.6 (1.0-2.2) 06/09/19 15:39 Triglycerides 134 mg/dL (-149) 06/10/19 05:50 Lipase 16 U/L (22-51) L 06/09/19 15:39 Urine Color YELLOW 06/09/19 18:25 Urine Clarity CLEAR (CLEAR) 06/09/19 18:25 Urine pH 5.5 PH (5.0-7.5) 06/09/19 18:25 Ur Specific [place] 1.025 (1.002-1.030) 06/09/19 18:25 Urine Protein 100 mg/dL (NEGATIVE) H 06/09/19 18:25 Urine Glucose (UA) >=1000 mg/dL (NEGATIVE) H 06/09/19 18:25 Urine Ketones 40 mg/dL (NEGATIVE) H 06/09/19 18:25 Urine Occult Blood LARGE (NEGATIVE) H 06/09/19 18:25 Urine Nitrite NEGATIVE (NEGATIVE) 06/09/19 18:25 Urine Bilirubin NEGATIVE (NEGATIVE) 06/09/19 18:25 Urine Urobilinogen 0.2 (NORMAL) E.U./dL (NORMAL) 06/09/19 18:25 Ur Leukocyte Esterase NEGATIVE (NEGATIVE) 06/09/19 18:25 Urine RBC 0-5 /HPF (0-5) 06/09/19 18:25 Urine WBC 0-3 /HPF (0-3) 06/09/19 18:25 Ur Squamous Epith Cells NONE SEEN (<= Few) 06/09/19 18:25 Urine Bacteria None Seen /HPF (None Seen) 06/09/19 18:25 Ur Microscopic Review INDICATED 06/09/19 18:25 Urine Culture Comments NOT INDICATED 06/09/19 18:25 Nasal Screen MRSA (PCR) NEGATIVE (NEGATIVE) 06/09/19 16:20 Urine Opiates Screen NEGATIVE (NEGATIVE) 06/09/19 18:25 Ur Oxycodone Screen NEGATIVE (NEGATIVE) 06/09/19 18:25 Urine Methadone Screen NEGATIVE (NEGATIVE) 06/09/19 18:25 Ur Propoxyphene Screen NEGATIVE (NEGATIVE) 06/09/19 18:25 Ur Barbiturates Screen NEGATIVE (NEGATIVE) 06/09/19 18:25 Ur Tricyclics Screen NEGATIVE (NEGATIVE) 06/09/19 18:25 Ur Phencyclidine Scrn NEGATIVE (NEGATIVE) 06/09/19 18:25 Ur Amphetamine Screen NEGATIVE (NEGATIVE) 06/09/19 18:25 U Methamphetamines Scrn NEGATIVE (NEGATIVE) 06/09/19 18:25 U Benzodiazepines Scrn NEGATIVE (NEGATIVE) 06/09/19 18:25 Urine Cocaine Screen NEGATIVE (NEGATIVE) 06/09/19 18:25 U Cannabinoids Screen POSITIVE (NEGATIVE) H 06/09/19 18:25 Serum Ketones NEGATIVE (NEGATIVE) 06/10/19 05:50
[2019-06-12] MEDS: ONDANSETRON 4 MG/2 ML VIAL IVP PRN (12:27)
[2019-06-12] MEDS: hydrALAZINE INJ 20 MG/ML VIAL IVP PRN (19:17)
[2019-06-12] MEDS: ATORVASTATIN 40 MG TABLET PO SCH (20:33)
--- NOTE | 2019-06-12 20:59 | Ultrasound Report ---
Reason: CKD,uncontrolled HTN, eval for Renal Art stenosis Procedure Date: 06/12/2019 Accession Number: [id number] / [id number] Procedure: US - Arterial Visceral Complete CPT Code: Final Report FULL RESULT: EXAM: RENAL ARTERY DOPPLER ULTRASOUND EXAM DATE: 06/12/2019 06:09 PM. CLINICAL HISTORY: Chronic kidney disease. Uncontrolled hypertension. COMPARISON: None. TECHNIQUE: Real-time sonographic vascular imaging was performed by the textile machinery sales representative through the renal arterial system with a linear transducer utilizing color-flow, Doppler flow, and spectral analysis. Multiple applications sales representative static images were saved for review. FINDINGS: Right Kidney: 12.7 x 6.9 x 7.7 cm. Right Segmental Artery: Upper pole: PSV 64.6 cm/sec, RI 0.58. Mid pole: PSV 32 cm/sec, RI 0.7. Lower pole: PSV 52.5 cm/sec, RI 0.66. Right Renal Artery: Origin: Not seen. Proximal: PSV 106 cm/sec, RA/AO 2.3. Mid: PSV 83 cm/sec, RA/AO 1.8. Distal: PSV 84.8 cm/sec, RA/AO 1.8. Aorta PSV: 46 cm/sec. RRV Patent: Yes. Left Kidney: 13.1 x 6.5 x 6.1 cm. Left Segmental Artery: Upper pole: PSV 31 cm/sec, RI 0.7. Mid pole: PSV 25.3 cm/sec, RI 0.7. Lower pole: PSV 26.6 cm/sec, RI 0.67. Left Renal Artery: Origin: Not seen. Proximal: Not seen. Mid: Not seen. Distal: PSV 52.9 cm/sec, RA/AO 1.15. LRV: Not seen. IMPRESSION: Limited evaluation due to bowel gas. Inadequate to exclude renal artery stenosis. CRITERIA FOR CLASSIFICATION OF RENAL ARTERY (RA) DISEASE BY DUPLEX SCANNING: RA Diameter Reduction/ RA PSV/ RAR: Normal, < 180 cm/sec, < 3.5 < 60%, >= 180 cm/sec, < 3.5 >= 60%, >= 180 cm/sec, >= 3.5 Total Occlusion: Undetectable; Not applicable RADIA
[2019-06-13] MEDS: INSULIN REGULAR HUMAN 300 UNIT/3 ML VIAL SUBQ SCH ×5 (00:21→23:53)
[2019-06-13] MEDS: SODIUM CHLORIDE 0.9% 1,000 ML IV SCH ×3 (01:06→19:31)
[2019-06-13] MEDS: ONDANSETRON 4 MG/2 ML VIAL IVP PRN ×2 (04:30→16:49)
[2019-06-13] MEDS: SODIUM CHLORIDE FLUSH 0.9% 10 ML SYRINGE IVP PRN ×4 (04:56→20:31)
[2019-06-13 05:04] LABS: BASOPHILS % (AUTO) 0.2 %; EOSINOPHILS % (AUTO) 0.3 %; HGB - HEMOGLOBIN 13.7 g/dL (14.0-18.0); LYMPHOCYTES % (AUTO) 14.3 %; MEAN CORPUSCULAR HEMOGLOBIN 31.7 pg (27.0-31.0); MEAN CORPUSCULAR VOLUME 93.3 fL (80.0-94.0); MEAN PLATELET VOLUME 9.9 fL (7.4-11.4); MONOCYTES # (AUTO) 0.8 10^3/uL (0.0-1.0); MONOCYTES % (AUTO) 11.7 %; NEUTROPHILS # (AUTO) 4.9 10^3/uL (1.5-6.6); NEUTROPHILS % (AUTO) 73.2 %; PLT - PLATELET COUNT 153 10^3/uL (130-450); RED BLOOD COUNT 4.32 10^6/uL (4.70-6.10); RED CELL DISTRIBUTION WIDTH 12.8 % (12.0-15.0); WHITE BLOOD COUNT 6.7 x10^3/uL (4.8-10.8)
[2019-06-13 05:12] LABS: CREATININE 1.1 mg/dL (0.6-1.2)
[2019-06-13] MEDS: METOCLOPRAMIDE 10 MG/2 ML VIAL IVP SCH ×4 (05:58→23:46)
[2019-06-13] MEDS: POTASSIUM CHLOR 20 MEQ/100 ML 20 MEQ/100 ML BAG IV SCH ×2 (05:58→07:01)
[2019-06-13] MEDS: PROCHLORPERAZINE 10 MG/2 ML VIAL IVP PRN (08:23)
[2019-06-13] MEDS: FAMOTIDINE 20 MG/2 ML VIAL IVP SCH ×2 (08:34→20:28)
[2019-06-13] MEDS: carvediloL 12.5 MG TABLET PO SCH ×2 (09:06→20:28)
[2019-06-13] MEDS: LOSARTAN 50 MG TABLET PO SCH (09:06)
[2019-06-13] MEDS: INSULIN NPH HUMAN 300 UNIT/3 ML VIAL SUBQ SCH ×2 (09:12→20:30)
[2019-06-13] MEDS: SODIUM CHLORIDE FLUSH 0.9% 10 ML SYRINGE IVP SCH ×3 (09:15→20:31)
[2019-06-13] MEDS: TAMSULOSIN 0.4 MG CAPSULE PO SCH (09:21)
[2019-06-13] MEDS: THIAMINE 100 MG TABLET PO SCH (09:21)
[2019-06-13] MEDS: hydrALAZINE INJ 20 MG/ML VIAL IVP PRN ×3 (12:02→23:54)
[2019-06-13] MEDS ORDERED: IOVERSOL 320 100 ML VIAL IVP ONE ×2 (15:41→16:41)
--- NOTE | 2019-06-13 17:03 | PROVIDER PROGRESS NOTE ---
Subjective - Prog Note Date Prog Note Date: 06/13/19 Prog Note Time: 17:21 - Subjective Subjective: he's just tired. nausea impedes eating in spite of advancing to regular diet. he just can't eat solids. only on liquids. denies abd pain. Current Medications - Current Medications Current Medications: Active Medications Acetaminophen (Tylenol) 650 mg PO Q4HR PRN PRN Reason: Pain 1 to 4 Atorvastatin Calcium (Lipitor) 40 mg PO QPM [facility] Last Admin: 06/12/19 20:33 Dose: 40 mg Carvedilol (Coreg) 25 mg PO BID [facility] Last Admin: 06/13/19 09:06 Dose: 25 mg Diphenhydramine HCl (Benadryl) 25 mg PO QPM PRN PRN Reason: Insomnia Last Admin: 06/12/19 23:54 Dose: 25 mg Famotidine (Pepcid) 20 mg IVP BID [facility] Last Admin: 06/13/19 08:34 Dose: 20 mg Hydralazine HCl (Apresoline Inj) 10 mg IVP Q6H PRN PRN Reason: Hypertensive Emergency Last Admin: 06/13/19 12:02 Dose: 10 mg Sodium Chloride (Normal Saline 0.9%) 1,000 mls @ 125 mls/hr IV .Q8H [facility] Last Infusion: 06/13/19 14:57 Dose: 125 mls/hr Insulin Human NPH (Humulin N) 20 unit SUBQ BID [facility] Last Admin: 06/13/19 09:12 Dose: 20 unit Insulin Human Regular (Humulin R) 3 - 11 unit SUBQ Q6HR [facility]; Protocol Last Admin: 06/13/19 12:29 Dose: 5 unit Lorazepam (Ativan) 0.5 mg PO Q6H PRN PRN Reason: Anxiety Last Admin: 06/12/19 23:54 Dose: 0.5 mg Losartan Potassium (Cozaar) 100 mg PO 0800 [facility] Last Admin: 06/13/19 09:06 Dose: 100 mg Metoclopramide HCl (Reglan Inj) 5 mg IVP Q6H [facility] Last Admin: 06/13/19 11:54 Dose: 5 mg Ondansetron HCl (Zofran Inj) 4 mg IVP Q6HR PRN PRN Reason: Nausea / Vomiting Last Admin: 03/17/20 16:49 Dose: 4 mg Polyethylene Glycol (Miralax) 17 gm PO DAILY [facility] Prochlorperazine Edisylate (Compazine Inj) 10 mg IVP Q6HR PRN PRN Reason: Nausea / Vomiting Last Admin: 06/13/19 08:23 Dose: 10 mg Scopolamine HBr (Transderm-Scop) 1 patch TOP Q3D [facility] Last Admin: 06/11/19 08:49 Dose: 1 patch Sodium Chloride (Normal Saline Flush 0.9%) 10 ml IVP PRN PRN PRN Reason: NEEDED PER PROVIDER ORDERS Last Admin: 06/13/19 09:08 Dose: 10 ml Sodium Chloride (Normal Saline Flush 0.9%) 10 ml IVP 0100,0900,1700 [facility] Last Admin: 06/13/19 16:36 Dose: 20 ml Tamsulosin HCl (Flomax) 0.4 mg PO DAILY [facility] Last Admin: 06/13/19 09:21 Dose: 0.4 mg Thiamine HCl (Vitamin B-1) 100 mg PO DAILY [facility] Last Admin: 06/13/19 09:21 Dose: 100 mg Atorvastatin Calcium 40 mg PO QPM 06/09/19 Carvedilol [Coreg] 25 mg PO DAILY 06/09/19 Insulin Regular Human [NovoLIN R] 2 - 10 unit SUBQ TIDWM 06/09/19 Losartan Potassium 25 mg PO DAILY 06/09/19 Omeprazole 20 mg PO QDAC 06/09/19 Tamsulosin [Flomax] 0.4 mg PO DAILY 06/09/19 Insulin NPH Human [Humulin N] 35 unit SUBQ BID 06/10/19 Objective - Vital Signs/Intake & Output Reviewed Vital Signs: Yes Vital Signs: Vital Signs x48h Temp Pulse Resp BP BP Pulse Ox 06/13/19 15:56 36.9 C 79 14 157/96 H 95 06/13/19 15:11 112/73 06/13/19 14:00 131/68 H 06/13/19 13:00 91 181/105 H 06/13/19 12:59 36.9 C 06/13/19 12:45 85 156/90 H 06/13/19 12:32 156/90 H 06/13/19 12:30 86 173/110 H 06/13/19 12:23 86 168/93 H 06/13/19 12:05 85 12 200/96 H 98 06/13/19 12:02 200/96 H 06/13/19 10:18 89 146/92 H Intake & Output: Intake & Output 06/10/19 06/11/19 06/12/19 06/13/19 23:59 23:59 23:59 23:59 Intake Total 5096 5502.500 3998.333 3643.750 Output Total 2100 716 917 2556 Balance 2996 5302.500 3348.333 2098.750 - Objective General Appearance: positive: No acute distress, Other (very fatigued, nauseated, obese dishevelled white male at 6'2", 110.5 kg.) Eyes Bilateral: positive: PERRL ENT: positive: Pharynx nml Neck: positive: No JVD Respiratory: positive: Chest non-tender, No respiratory distress Cardiovascular: positive: Regular rate & rhythm. negative: Gallop/S4, Friction rub Abdomen: positive: Non-tender, Nml bowel sounds, No distention, Other (obese) Skin: positive: Warm, Dry Extremities: positive: Pedal edema Neurologic/Psychiatric: positive: Oriented x3, CN's nml (2-12), Motor nml, Weakness - Lab Results Fish Bones: 06/13/19 04:55 06/13/19 04:55 Other Labs: Lab Results x24hrs 06/13/19 06/13/19 06/13/19 Range/Units 12:20 06:02 04:55 WBC (4.8-10.8) x10^3/uL RBC (4.70-6.10) 10^6/uL Hgb (14.0-18.0) g/dL Hct (42.0-52.0) % MCV (80.0-94.0) fL MCH (27.0-31.0) pg MCHC (32.0-36.0) g/dL RDW (12.0-15.0) % Plt Count (130-450) 10^3/uL MPV (7.4-11.4) fL Neut # (Auto) (1.5-6.6) 10^3/uL Lymph # (Auto) (1.5-3.5) 10^3/uL [place] # (Auto) (0.0-1.0) 10^3/uL Eos # (Auto) (0.0-0.7) 10^3/uL Baso # (Auto) (0.0-0.1) 10^3/uL Absolute Nucleated RBC x10^3/uL Nucleated RBC % /100WBC Sodium 138 (135-145) mmol/L Potassium 3.4 L (3.5-5.0) mmol/L Chloride 106 (101-111) mmol/L Carbon Dioxide 24 (21-32) mmol/L Anion Gap 8.0 (6-13) BUN 24 H (6-20) mg/dL Creatinine 1.1 (0.6-1.2) mg/dL Estimated GFR (MDRD) 68 L (>89) Glucose 176 H (70-100) mg/dL POC Whole Bld Glucose 181 H 162 H (70 - 100) mg/dL Calcium 8.0 L (8.5-10.3) mg/dL U Random Total Protein mg/dL Ur Random Chloride mmol/L Urine Potassium mmol/L 06/13/19 06/12/19 06/12/19 Range/Units 04:55 23:48 20:33 WBC 6.7 (4.8-10.8) x10^3/uL RBC 4.32 L (4.70-6.10) 10^6/uL Hgb 13.7 L (14.0-18.0) g/dL Hct 40.3 L (42.0-52.0) % MCV 93.3 (80.0-94.0) fL MCH 31.7 H (27.0-31.0) pg MCHC 34.0 (32.0-36.0) g/dL RDW 12.8 (12.0-15.0) % Plt Count 153 (130-450) 10^3/uL MPV 9.9 (7.4-11.4) fL Neut # (Auto) 4.9 (1.5-6.6) 10^3/uL Lymph # (Auto) 1.0 L (1.5-3.5) 10^3/uL [place] # (Auto) 0.8 (0.0-1.0) 10^3/uL Eos # (Auto) 0.0 (0.0-0.7) 10^3/uL Baso # (Auto) 0.0 (0.0-0.1) 10^3/uL Absolute Nucleated RBC 0.00 x10^3/uL Nucleated RBC % 0.0 /100WBC Sodium (135-145) mmol/L Potassium (3.5-5.0) mmol/L Chloride (101-111) mmol/L Carbon Dioxide (21-32) mmol/L Anion Gap (6-13) BUN (6-20) mg/dL Creatinine (0.6-1.2) mg/dL Estimated GFR (MDRD) (>89) Glucose (70-100) mg/dL POC Whole Bld Glucose 132 H 189 H (70 - 100) mg/dL Calcium (8.5-10.3) mg/dL U Random Total Protein mg/dL Ur Random Chloride mmol/L Urine Potassium mmol/L 06/12/19 06/12/19 Range/Units 18:46 16:47 WBC (4.8-10.8) x10^3/uL RBC (4.70-6.10) 10^6/uL Hgb (14.0-18.0) g/dL Hct (42.0-52.0) % MCV (80.0-94.0) fL MCH (27.0-31.0) pg MCHC (32.0-36.0) g/dL RDW (12.0-15.0) % Plt Count (130-450) 10^3/uL MPV (7.4-11.4) fL Neut # (Auto) (1.5-6.6) 10^3/uL Lymph # (Auto) (1.5-3.5) 10^3/uL [place] # (Auto) (0.0-1.0) 10^3/uL Eos # (Auto) (0.0-0.7) 10^3/uL Baso # (Auto) (0.0-0.1) 10^3/uL Absolute Nucleated RBC x10^3/uL Nucleated RBC % /100WBC Sodium (135-145) mmol/L Potassium (3.5-5.0) mmol/L Chloride (101-111) mmol/L Carbon Dioxide (21-32) mmol/L Anion Gap (6-13) BUN (6-20) mg/dL Creatinine (0.6-1.2) mg/dL Estimated GFR (MDRD) (>89) Glucose (70-100) mg/dL POC Whole Bld Glucose 192 H (70 - 100) mg/dL Calcium (8.5-10.3) mg/dL U Random Total Protein 32 mg/dL Ur Random Chloride 106 mmol/L Urine Potassium 28.1 mmol/L ABX Reporting Has patient been on IV antibiotics over the past 48 hours?: No Assessment/Plan - Problem List (1) Hypertension, uncontrolled Impression: His BP has been as high as 230- 260's intermittently while here. Today will be 120 and go as high as 240. Some of those high readings occurred when he was restless, and was asking get OOB and walk around. The RN noticed that he was tremulous yesterday and asked him if he uses alcohol, and he told her "No". The Pizza Chef who admitted him, got a Hx of alcohol use of "putting [employer] in his coffee". Ativan was started for "anxiety and restlessness" which puts him to sleep. 06/10 a CIWA protocol and daily Thiamine were ordered empirically. And 06/11 a SW consult will be done to address alcohol abuse and possible withdrawal. His BP control has required increasing his home Losartan dose from 25 mg daily to 100 mg daily, increasing his home dose of Carvedilol 25 mg daily to b.i.d., plus using Hydralazine iv pushes prn. His Echo, done 06/10 to evaluate a new murmur showed severe LVH, suggesting that he has had poorly controlled BP for some time now. With the KI present on his labs, we tried to assess for renal artery stenosis with a limited retroperitoneal Doppler order but overlying bowel gas obscured go od visualization. I have spoken to radiology and will do a renal artery angio and CT of abd to look for mass over kidney. He is still not ready for [facility] today. (2) DKA (diabetic ketoacidoses) Impression: His ketones cleared but diet could not be resumed due to prolonged N/V (from gastroparesis), see #3. Although we advanced to a carb-controlled soft diet 06/11 and adjust his NPH Insulin up, and continue ss Reg Insulin coverage. He is still not eating more than liquids. WE though of transferring out of ICU to [facility] bed but since his BP is so labile and high at times, keep in ICU for prn use of meds. The patient has a Diabetic foot appointment today, that he would like to keep, per the Director Sales And Trade Marketing. But that will be rescheduled. The SW, Juany, has cancelled and moved his upcoming eye appointment. (3) Gastroparesis diabeticorum Assessment/Plan: Cleared A 72 hour Scopalamine patch was tried 06/10. He tolerated clear liquids without N/V yesterday. Not really liking the advanced diet. (4) Newly recognized murmur Assessment/Plan: Echo was done 06/10 and showed severe LVH with a small LV cavity with an intra- cavitary LV gradient. This signified volume depletion and also probable longstanding HTN that has produced LVH. He got a 500 cc saline bolus to increase intravascular volume which would decrease the gradient, and by 06/11 his murmur is gone. Continue mild iv hydration while diet is advancing. Avoid diuretics. (5) Acute kidney injury superimposed on CKD Assessment/Plan: The BUN/creat was 45/1.8 at admission >> 44/1.7 >> 45/1.6 >> 43/1.5 >> 39/1.4 >> 33/1.1>>24/1.1 today. Improving BUN/creat daily, suggests he had ATN from severe volume depletion. He got the saline bolus 06/10 but was on iv fluid drip since admission. Continue iv hydration until tomorrow. Monitor BMP daily. Will also order urine electrolytes and creat and protein check. Will not start a 24 hour collection for total protein or evaluation for 5HIAA (to check for Pheo). This needs to be done as an outpatient. (6) Hypokalemia due to inadequate potassium intake Assessment/Plan: Due to his renal disease, no K was in replacement fluids. Will correct carefully again today. Follow BMP daily. (7) BPH (benign prostatic hyperplasia) Assessment/Plan: His home med was ordered to use here (8) Restlessness Assessment/Plan: This was thought to be anxiety at admission but could have a different etiology. He is ordered to receive Benadryl at hs prn insomnia.
--- NOTE | 2019-06-13 17:03 | CT Report ---
Reason: labile severe HTN 120-240 systolic Procedure Date: 06/13/2019 Accession Number: [id number] / [id number] Procedure: CT - ANGIO ABDOMEN W/WO CPT Code: Final Report FULL RESULT: EXAM: CT ANGIOGRAM ABDOMEN WITH CONTRAST EXAM DATE: 06/13/2019 04:30 PM. CLINICAL HISTORY: Labile severe HTN 120-240 systolic. COMPARISONS: ARTERIAL 06/12/2019 6:09 PM. TECHNIQUE: Routine helical CT angiogram imaging was performed through the abdomen in the arterial and 12 minute delayed phases after initial noncontrast series. IV contrast: 100 mL OPTIRAY 320. Enteric contrast: No. Reconstructions: Coronal, sagittal, and 3D MIP reconstructions. In accordance with CT protocol optimization, one or more of the following dose reduction techniques were utilized for this exam: automated exposure control, adjustment of mA and/or KV based on patient size, or use of iterative reconstructive technique. FINDINGS: Vasculature: Accessory right and left renal arteries. No renal arterial stenosis. No abdominal aortic aneurysm or dissection. There is mild scattered atherosclerotic plaque. The celiac artery, SMA and RIYA are patent. No intramural hematoma evident on initial noncontrast series. Lung Bases: Small pericardial effusion. Abdominal Solid Organs: Normal. The liver, spleen, pancreas, adrenal glands, gallbladder and kidneys are normal in size and demonstrate no masses or abnormal enhancement. Symmetric bilateral renal enhancement. Peritoneal Cavity: Diverticulosis in the descending and sigmoid colon. No dilated bowel. Bones: Degenerative changes at L3-L4 and L4-L5 levels. Other: None. IMPRESSION: 1. Normal abdomen CT angiogram. No abdominal aortic aneurysm or dissection. No renal arterial stenosis. Accessory bilateral renal arteries are present. 2. Normal bilateral adrenal glands. No nodule or mass. 3. Small pericardial effusion. 4. Diverticulosis. RADIA
[2019-06-13] MEDS: polyethylene glycoL 3350 17 GM PACKET PO SCH (18:08)
[2019-06-13] MEDS: ATORVASTATIN 40 MG TABLET PO SCH (20:28)
[2019-06-14] MEDS: diphenhydrAMINE 25 MG CAPSULE PO PRN (00:23)
[2019-06-14] MEDS: SODIUM CHLORIDE FLUSH 0.9% 10 ML SYRINGE IVP SCH ×2 (00:23→08:44)
[2019-06-14] MEDS: LORazepam 0.5 MG TABLET PO PRN (00:24)
[2019-06-14] MEDS: SODIUM CHLORIDE 0.9% 1,000 ML IV SCH (03:26)
[2019-06-14] MEDS: METOCLOPRAMIDE 10 MG/2 ML VIAL IVP SCH ×2 (05:52→12:25)
[2019-06-14] MEDS: SODIUM CHLORIDE FLUSH 0.9% 10 ML SYRINGE IVP PRN (05:52)
[2019-06-14 06:11] LABS: BASOPHILS % (AUTO) 0.2 %; EOSINOPHILS # (AUTO) 0.1 10^3/uL (0.0-0.7); EOSINOPHILS % (AUTO) 1.7 %; LYMPHOCYTES # (AUTO) 1.1 10^3/uL (1.5-3.5); LYMPHOCYTES % (AUTO) 19.9 %; MEAN CORPUSCULAR HEMOGLOBIN 31.9 pg (27.0-31.0); MEAN CORPUSCULAR HGB CONC 34.4 g/dL (32.0-36.0); MEAN CORPUSCULAR VOLUME 92.6 fL (80.0-94.0); MEAN PLATELET VOLUME 10.2 fL (7.4-11.4); MONOCYTES # (AUTO) 0.8 10^3/uL (0.0-1.0); MONOCYTES % (AUTO) 14.7 %; NEUTROPHILS # (AUTO) 3.4 10^3/uL (1.5-6.6); NEUTROPHILS % (AUTO) 63.1 %; PLT - PLATELET COUNT 137 10^3/uL (130-450); RED BLOOD COUNT 4.08 10^6/uL (4.70-6.10); RED CELL DISTRIBUTION WIDTH 12.5 % (12.0-15.0); WHITE BLOOD COUNT 5.3 x10^3/uL (4.8-10.8)
[2019-06-14 06:20] LABS: CALCIUM 7.7 mg/dL (8.5-10.3)
[2019-06-14] MEDS: INSULIN REGULAR HUMAN 300 UNIT/3 ML VIAL SUBQ SCH ×2 (06:21→12:26)
[2019-06-14] MEDS: ONDANSETRON 4 MG/2 ML VIAL IVP PRN (06:56)
[2019-06-14] MEDS ORDERED: POTASSIUM CHLOR 10 MEQ/100 ML 10 MEQ/100 ML BAG IV SCH (07:00)
[2019-06-14] MEDS: LOSARTAN 50 MG TABLET PO SCH (08:39)
[2019-06-14] MEDS: FAMOTIDINE 20 MG/2 ML VIAL IVP SCH (08:40)
[2019-06-14] MEDS: TAMSULOSIN 0.4 MG CAPSULE PO SCH (08:40)
[2019-06-14] MEDS: THIAMINE 100 MG TABLET PO SCH (08:40)
[2019-06-14] MEDS: SCOPOLAMINE PATCH TOP SCH (08:40)
[2019-06-14] MEDS: polyethylene glycoL 3350 17 GM PACKET PO SCH (08:49)
[2019-06-14] MEDS: INSULIN NPH HUMAN 300 UNIT/3 ML VIAL SUBQ SCH (08:52)
[2019-06-14] MEDS: POTASSIUM CHLOR 20 MEQ/100 ML 20 MEQ/100 ML BAG IV SCH ×2 (08:52→10:35)
[2019-06-14] MEDS: carvediloL 12.5 MG TABLET PO SCH (08:54)
--- NOTE | 2019-06-14 15:45 | Discharge Plan ---
Discharge Plan Problem Reviewed?: Yes Disposition: Home, Self Care Condition: Stable Prescriptions: Carvedilol [Coreg] 25 mg PO BID #60 tablet Losartan [Cozaar] 100 mg PO 0800 #30 tablet Diet: Diabetic Activity Restrictions: Activity as Tolerated Shower Restrictions: No Driving Restrictions: No Instruction Topics: Gastroparesis Health Concerns: You presented to our emergency room complaining of nausea and vomiting that was chronic in nature but recently much worse. It had gotten worse over the past 7 to 8 days before you came in. You are a diabetic and have known gastroparesis. After being treated in the emergency room, you felt better, and you were no longer vomiting and you were discharged. But you had to return because the vomiting returned. You have now been in the hospital for 5 days. You have required an insulin drip for elevated glucose, and quite a bit of IV fluids for hydration. You have also required a scopolamine patch and nausea pills to help with the nausea and vomiting. During your stay you did have a severely elevated blood pressure that would go as high as 245 systolic. Plan of Treatment: 1. Your sugar is now under control. However you are eating very little and we anticipate your sugar going back up when you get home. Try and maintain a mainl y liquid diet for the next few days until you can take solid food. Cans of Glucerna, water, low glucose protein drinks are all acceptable for you to eat. Aim for no more than 2000 kwame a day. 2. For your blood pressure, your losartan was increased from 25 mg a day to 100 mg a day. And your Coreg was increased from 25 mg daily to 25 mg twice a day. 3. Because suddenly elevated blood pressure that is very labile can be associated with certain diseases, we did a CT angiogram of your kidney arteries and we also did a CT of the abdomen looking for hormonal tumors that secrete adrenaline. Both of these studies were negative. 4. If your blood pressure continues to be elevated at home and when you see your primary care provider, consider being worked up for a disease of a pheochromocytoma. Please let your primary care provider know. 5. We would strongly recommend that you see a specialist who deals with gastroparesis. There are actual departments at [facility] that handle this problem. [facility], [facility], etc. all have specialist to do this. There are medications and procedures and surgeries that can help with this. This would include enteral nutrition, gastro electric stimulation, etc. Please have your primary care provider referred you to a specialist. There are specialist at the [facility] that may be able to help. Bobby Dover MD is one. Tara Jalloh may be able to help you as well. Care Goals: To have your glucose under control. To have your blood pressure under control. To no longer have nausea and vomiting and to be able to eat normally. Assessment: Patient understands goals. The only barrier would be his instinctive dislike of "doctors and hospitals" but promises to try and follow through. No Smoking: If you smoke, Please STOP! Call for help. Follow-up with: Lena Kirkland ARNP [Primary Care Provider] -
[2019-06-14 16:55] VITALS: BP 151/97
--- NOTE | 2019-06-14 18:37 | DISCHARGE SUMMARY ---
"Discharge Summary Admit Date: 06/09/19 Discharge Date: 06/14/19 Discharging Provider: Cristina Geller MD Primary Care Provider: EUGENIE Fransk Code Status: Attempt Resuscitation Condition at Discharge: Stable Discharge Disposition: 01 Home, Self Care - DIAGNOSES Discharge Diagnoses with Status of Each Condition: 1. Diabetic ketoacidosis, type II, with complications, on long-term insulin 2. Gastroparesis diabeticorum 3. Intractable nausea and vomiting 4. Hypertension that is uncontrolled 5. Newly recognized murmur 6. Acute on chronic kidney injury 7. Hypokalemia 8. Benign prostatic hypertrophy 9. Restlessness - HPI History of Present Illness: Patient is a 63 y/o male who is diabetic and has gastroporesis. He presented to the ED with complain of nausea and vomiting. He is usually nauseous and vomits numerous times on most days. However he has been experiencing worsening symptoms over the past 7-8 days. As a result he was brought to the ED today by his daughter. He had presented yesterday, was treated in the ED, felt better, so he was discharged. He had a pHof 7.33, anion gap of 19 but no serum ketones. Today his serum ketones were positive and his blood glucose was 408. As a result he wa s admitted to the ICU on insulin drip for DKA. He denies chest pain, dyspnea, abd pain, fever or chills. His nausea and vomiting seems to have subsided. [place]. He usually gets all of his health care at [facility]. He says but has been evaluated in the past for cyclical vomiting syndrome due to marijuana use. Several physicians of stated that is his problem. But his most recent opinion from a surgeon at [facility] was that he has gastroparesis from diabetes. He describes gastric emptying studies, EGDs, etc. being done to him in the past. Past Medical History Cardiovascular: reports: Hypertension, High cholesterol Respiratory: reports: None Neuro: reports: None Endocrine/Autoimmune: reports: Type 1 diabetes GI: reports: GERD : reports: Benign prostate hypertrophy HEENT: reports: None Psych: reports: None Musculoskeletal: reports: Gout Derm: reports: None MRSA Hx?: No Other Past Medical History: Gastroperisis - CONSULTS | PROCEDURES Procedures: 1. 2 chest x-rays. One done on June 08 and the other June 10. The second 1 was due to a PICC line placement. No acute cardiopulmonary disease. 2. Renal artery Doppler ultrasound attempted. Technically difficult to do because of overlying bowel gas. It was inadequate to exclude renal artery stenosis. 3. Abdomen CT with angiogram. Accessory right and left renal arteries. No renal arterial stenosis. No abdominal aortic aneurysm or dissection. The celiac artery, SMA, RIYA are patent. Kidneys are normal size and demonstrate no masses or abnormal enhancement. 4. Echocardiogram showed left ventricular cavity size that is decreased. Severe concentric left ventricular hypertrophy. Left ventricular systolic function hyperdynamic with an ejection fraction of greater than 75%. Right ventricle normal in size and function. No hematin dynamically significant valvular disease. - HOSPITAL COURSE Hospital Course: He was placed in the ICU because of diabetic ketoacidosis that was incipient. It was not severe, but he needed aggressive hydration, insulin drip to control his sugars. Those were eventually controlled and he was transitioned to a diet with his usual insulin dosing. However, he was not eating solid food at discharge. He just had no appetite for it. The intractable nausea and vomiting with which she presented with had resolved. He explained to me that he is had a long history of it. Differential diagnosis includes cyclical vomiting as well as diabetic gastroparesis. However he is never received specific treatment for gastroparesis. He has been off cannabis for 6 days. But I explained to him that you need to be off cannabis for a lot longer than that to eliminate that as the cause of cyclical vomiting. Blood pressure was uncontrolled during his stay. In the course of an hour it would vary between 120 systolic to 245 systolic. His losartan was increased from 25 mg a day to 100 mg a day. Hydralazine was used as needed. And Coreg was increased from 25 mg a day to 25 mg twice a day. Because we postulated possible renal artery stenosis or pheochromocytoma, renal artery ultrasound was attempted and not adequate. CT angiogram of the abdomen as well as solid organs was as above. Acute on chronic kidney disease was seen. He presented with a creatinine of 1.8 and it was 1.0 by the time of discharge. Glycosylated hemoglobin was 8.1%. Bec ause of symptoms of benign prostatic hypertrophy he was started on Flomax. This was a continuation of his home medication. He had a newly recognized murmur. This resolved once he was adequately hydrated. Echocardiogram was as above with a hyperdynamic left ventricle. However he has severe left ventricular hypertrophy indicating that his blood pressure that is out of control may have been out of control for quite some time. Hypokalemia was present and adequately supplemented. He had quite a bit of restlessness during his stay. He states that he hates hospitals. Hates doctors. Assures me not to take it personally but he really hates being in all these places. We initially thought that he may be having alcohol withdrawal. However he and his daughter both state that there is no alc ohol abuse problem. At discharge I strongly recommended follow-up with a specialist and diabetic ga stroparesis. I gave him the list of 3 physicians that are listed in the gastroparesis association for the [place] area. I also recommended a physician at [facility], or seeing someone at [facility]. Temperature at discharge is 37.1. Pulse 78. Blood pressure 151/97. Respiratio ns 20 and is 97% on room air. He is a 6 foot 2 inch white male at 114 kg. Slightly disheveled. Isolated abrasion over the right cheekbone. That was present on admission and is vague about where that comes from. Neck is supple with shotty adenopathy. Lungs have diminished breath sounds at the bases but are essentially clear. He has a regular rate and rhythm and the murmur that was present on admission is not present at this time. Abdomen is obese, soft, nontender. Extremities have no edema and he is walking in his room without any ataxia. Greater than 30 minutes was spent coordinating discharge. - ALLERGIES Allergies/Adverse Reactions: Allergies Allergy/AdvReac Type Severity Reaction Status Date / Time No Known Drug Allergies Allergy Verified 06/09/19 00:55 - MEDICATIONS Home Medications: Ambulatory Orders Medication Instructions Recorded Confirmed Atorvastatin Calcium 40 mg PO QPM 06/09/19 06/09/19 Insulin Regular Human [NovoLIN R] 2 - 10 unit SUBQ TIDWM 06/09/19 06/10/19 Omeprazole 20 mg PO QDAC 06/09/19 06/10/19 Tamsulosin [Flomax] 0.4 mg PO DAILY 06/09/19 06/10/19 Insulin NPH Human [Humulin N] 35 unit SUBQ BID 06/10/19 06/10/19 Carvedilol [Coreg] 25 mg PO BID #60 tablet 06/14/19 Losartan [Cozaar] 100 mg PO 0800 #30 tablet 06/14/19 - LABS Result Diagrams: 06/14/19 05:45 06/14/19 05:45"
== END 2019-06-14 17:00 | disposition home or self-care (01) | DRG 638 ==
LOC: ED 13:58 → ICU 17:23
PROVIDERS: ADMIT Internal Medicine; ATTEND Specialist
PROC: 02H633Z Insertion of Infusion Device into Right Atrium, Percutaneous Approach (ICD-10-PCS; principal; 2019-06-10)
PROC: B548ZZA Ultrasonography of Superior Vena Cava, Guidance (ICD-10-PCS; 2019-06-10)
DX: E11.10 Type 2 diabetes mellitus with ketoacidosis without coma (principal); E86.0 Dehydration; R11.2 Nausea with vomiting, unspecified; R10.9 Unspecified abdominal pain; K21.9 Gastro-esophageal reflux disease without esophagitis; F17.200 Nicotine dependence, unspecified, uncomplicated; R00.0 Tachycardia, unspecified; N17.9 Acute kidney failure, unspecified; I13.10 Hypertensive heart and chronic kidney disease without heart failure, with stage 1 through stage 4 chronic kidney disease, or unspecified chronic kidney disease; E11.22 Type 2 diabetes mellitus with diabetic chronic kidney disease; N18.9 Chronic kidney disease, unspecified; E11.43 Type 2 diabetes mellitus with diabetic autonomic (poly)neuropathy; K31.84 Gastroparesis; R01.1 Cardiac murmur, unspecified; E86.9 Volume depletion, unspecified; E87.6 Hypokalemia; N40.0 Benign prostatic hyperplasia without lower urinary tract symptoms; R45.1 Restlessness and agitation; G47.00 Insomnia, unspecified; E78.5 Hyperlipidemia, unspecified; T40.7X1A Poisoning by cannabis (derivatives), accidental (unintentional), initial encounter; F12.90 Cannabis use, unspecified, uncomplicated; R11.15 Cyclical vomiting syndrome unrelated to migraine; Y92.009 Unspecified place in unspecified non-institutional (private) residence as the place of occurrence of the external cause; S00.81XD Abrasion of other part of head, subsequent encounter; Z79.4 Long term (current) use of insulin
CPT/HCPCS: 36415; 71045; 74175; 80048; 80053; 80076; 81001; 82009; 82040; 82436; 82550; 82803; 82977; 83036; 83605; 83690; 83735; 84100; 84133; 84156; 84478; 84484; 85025; 87150; 93005; 93306; 93975; 96361; 96374; 96375; 99284; 99285; A9270; C1751; J1815; J2060; J2765; J3490; Q9967; 80306; 80320; 81003; 82575; 82947; 87086

== ENCOUNTER 2019-07-21 20:18 | Outpatient (CLI) | payer MEDICARE | END 2019-07-21 20:19 | disposition critical access hospital (66) | LOC: EMS 20:18 | PROVIDERS: ATTEND Surgery | DX: R11.2 Nausea with vomiting, unspecified (principal); R73.09 Other abnormal glucose; R53.1 Weakness | CPT/HCPCS: A0425; A0429 ==

== ENCOUNTER 2019-07-21 20:54 | Inpatient (IN) | payer MEDICARE ==
[2019-07-21] MEDS ORDERED: METOCLOPRAMIDE 10 MG/2 ML VIAL IVP STA (21:11)
[2019-07-21] MEDS ORDERED: SODIUM CHLORIDE 0.9% 1,000 ML IV ONE (21:11)
--- NOTE | 2019-07-21 21:17 | ED Physician Documentation ---
PD HPI ABD PAIN - Stated complaint Stated Complaint: WEAKNESS N/V/D - Chief complaint Chief Complaint: Abd Pain - History obtained from History obtained from: Patient (63-year-old gentleman with longstanding diabetes and gastroparesis presents with nausea and vomiting today. He also had loose stools. His blood sugar was up in the 400s earlier but he self administered some insulin and for the paramedics it was only around 140. He denies abdominal pain. He recently moved from [place]. He was admitted here for similar symptoms last month. He denies drug or alcohol use to me, that said he admitted to marijuana use on his last admission and for marijuana on his urine drug screen. He was discharged after about 4 5 days. Of note on admission he did have acute kidney injury, it looks like his baseline creatinine is around 1.1 or 1.2. On admission last time his creatinine was 1.8 in a prerenal fashion with his BUN up in the 40s. After vomiting several times today, the vomit did become blood-tinged.) Review of Systems Ten Systems: 10 systems reviewed and negative Constitutional: reports: Sweats. denies: Fever, Chills Nose: denies: Rhinorrhea / runny nose, Congestion Throat: denies: Sore throat Cardiac: denies: Chest pain / pressure, Palpitations Respiratory: denies: Dyspnea, Cough GI: reports: Nausea, Vomiting, Diarrhea. denies: Abdominal Pain PD PAST MEDICAL HISTORY - Past Medical History Cardiovascular: Hypertension, High cholesterol Respiratory: None Neuro: None Endocrine/Autoimmune: Type 1 diabetes GI: GERD : Benign prostate hypertrophy HEENT: None Psych: None Musculoskeletal: Gout Derm: None - Past Surgical History Past Surgical History: Yes General: Appendectomy Ortho: Amputation, Other - Present Medications Home Medications: Ambulatory Orders Medication Instructions Recorded Confirmed Atorvastatin Calcium 40 mg PO QPM 06/09/19 06/09/19 Insulin Regular Human [NovoLIN R] 2 - 10 unit SUBQ TIDWM 06/09/19 06/10/19 Omeprazole 20 mg PO QDAC 06/09/19 06/10/19 Tamsulosin [Flomax] 0.4 mg PO DAILY 06/09/19 06/10/19 Insulin NPH Human [Humulin N] 35 unit SUBQ BID 06/10/19 06/10/19 Carvedilol [Coreg] 25 mg PO BID #60 tablet 06/14/19 Losartan [Cozaar] 100 mg PO 0800 #30 tablet 06/14/19 - Allergies Allergies/Adverse Reactions: Allergies Allergy/AdvReac Type Severity Reaction Status Date / Time No Known Drug Allergies Allergy Verified 07/21/19 21:08 - Social History Does the pt smoke?: Yes Smoking Status: Current every day smoker Does the pt drink ETOH?: No Does the pt have substance abuse?: Yes - Immunizations Immunizations are current?: Yes - POLST Patient has POLST: No POLST Status: Full Code PD ED PE NORMAL - Vitals Vital signs reviewed: Yes - General General: Alert and oriented X 3, Other (He appears uncomfortable and is retching) - HEENT HEENT: PERRL, EOMI - Neck Neck: Supple, no meningeal sign, No bony TTP - Cardiac Cardiac: RRR, No murmur - Respiratory Respiratory: No respiratory distress, Clear bilaterally - Abdomen Abdomen: Normal bowel sounds, Soft, Non tender - Back Back: No CVA TTP, No spinal TTP - Derm Derm: Normal color, Warm and dry - Extremities Extremities: No edema, No calf tenderness / cord - Neuro Neuro: Alert and oriented X 3, Normal speech - Psych Psych: Normal mood, Normal affect Results - Vitals Vitals: Vital Signs - 24 hr 07/21/19 07/21/19 07/21/19 21:03 21:07 22:05 Temperature 36.3 C L Heart Rate 111 H 112 H 102 H Respiratory 20 20 16 Rate Blood Pressure 241/134 H 145/136 H 234/163 H O2 Saturation 100 100 97 07/21/19 22:39 Temperature Heart Rate 103 H Respiratory 14 Rate Blood Pressure 207/103 H O2 Saturation 99 Oxygen O2 Source Room air - EKG (time done) 2129 Rate: Rate (enter#) (105) Rhythm: NSR [place]: Normal Intervals: Normal [place] QRS: Normal Ischemia: Non specific changes (Borderline long QT interval, flat lateral T waves) - Labs Labs: Laboratory Tests 07/21/19 07/21/19 07/21/19 21:05 21:05 21:05 WBC 10.9 H RBC 5.09 Hgb 15.4 Hct 45.6 MCV 89.6 MCH 30.3 MCHC 33.8 RDW 12.9 Plt Count 239 MPV 9.8 Neut # (Auto) 9.6 H Lymph # (Auto) 0.8 L Iron # (Auto) 0.4 Eos # (Auto) 0.0 Baso # (Auto) 0.0 Absolute Nucleated RBC 0.00 Nucleated RBC % 0.0 VBG pH VBG pCO2 VBG pO2 VBG HCO3 VBG Total CO2 VBG O2 Saturation VBG Base Excess Sodium 139 Potassium 3.7 Chloride 102 Carbon Dioxide 23 Anion Gap 14.0 H BUN 22 H Creatinine 0.9 Estimated GFR (MDRD) 85 L Glucose 183 H Calcium 9.6 Total Bilirubin 1.6 H AST 23 ALT 26 Alkaline Phosphatase 80 Troponin I High Sens 9.8 Total Protein 8.4 H Albumin 5.0 Globulin 3.4 Albumin/Globulin Ratio 1.5 Lipase 19 L Ethyl Alcohol < 5.0 Serum Ketones NEGATIVE 07/21/19 21:11 WBC RBC Hgb Hct MCV MCH MCHC RDW Plt Count MPV Neut # (Auto) Lymph # (Auto) Iron # (Auto) Eos # (Auto) Baso # (Auto) Absolute Nucleated RBC Nucleated RBC % VBG pH 7.451 H VBG pCO2 35.1 L VBG pO2 35.8 VBG HCO3 23.9 VBG Total CO2 25.0 VBG O2 Saturation 78.3 VBG Base Excess 0.5 Sodium Potassium Chloride Carbon Dioxide Anion Gap BUN Creatinine Estimated GFR (MDRD) Glucose Calcium Total Bilirubin AST ALT Alkaline Phosphatase Troponin I High Sens Total Protein Albumin Globulin Albumin/Globulin Ratio Lipase Ethyl Alcohol Serum Ketones Procedures - General procedure General procedure: He was difficult for IV access, the paramedics had tried and failed on the way in. I personally placed a long 22-gauge IV in the left deep brachial vein using real-time ultrasound guidance after ChloraPrep that flushed and regulo easily. PD MEDICAL DECISION MAKING - ED course ED course: 63-year-old gentleman presents with nausea and vomiting tonight. Some blood tinge to it. Also impressively elevated blood pressures in the 230/160 range. No evidence of endorgan damage. He was administered divided doses of antiemetics and his nausea was intractable. Also divided doses of labetalol and hydralazine to work on his blood pressure. Previous records reviewed, he had a thorough work-up in his last admission. Some concern for cannabinoid hyperemesis. Spoke with Dr. Shoemaker for admission at 10:35 PM. Departure - Departure Disposition: 66 [facility] DC/Xfer Clinical Impression: Intractable nausea and vomiting, Malignant hypertension Diabetes Qualifiers: Diabetes mellitus type: type 1 Diabetes mellitus complication status: with other specified complication Qualified Code(s): E10.69 - Type 1 diabetes mellitus with other specified complication Condition: Serious
[2019-07-21 21:19] LABS: VBG BASE EXCESS 0.5 mmol/L (-2 - +2); VBG PCO2 35.1 mmHg (41-51); VBG PH 7.451 (7.31-7.41); VBG PO2 35.8 mmHg (25-47)
[2019-07-21 21:21] LABS: BASOPHILS % (AUTO) 0.3 %; HGB - HEMOGLOBIN 15.4 g/dL (14.0-18.0); LYMPHOCYTES # (AUTO) 0.8 10^3/uL (1.5-3.5); LYMPHOCYTES % (AUTO) 7.3 %; MEAN CORPUSCULAR HEMOGLOBIN 30.3 pg (27.0-31.0); MEAN CORPUSCULAR HGB CONC 33.8 g/dL (32.0-36.0); MEAN CORPUSCULAR VOLUME 89.6 fL (80.0-94.0); MEAN PLATELET VOLUME 9.8 fL (7.4-11.4); MONOCYTES # (AUTO) 0.4 10^3/uL (0.0-1.0); MONOCYTES % (AUTO) 3.6 %; NEUTROPHILS # (AUTO) 9.6 10^3/uL (1.5-6.6); NEUTROPHILS % (AUTO) 88.4 %; PLT - PLATELET COUNT 239 10^3/uL (130-450); RED BLOOD COUNT 5.09 10^6/uL (4.70-6.10); RED CELL DISTRIBUTION WIDTH 12.9 % (12.0-15.0); WHITE BLOOD COUNT 10.9 x10^3/uL (4.8-10.8)
[2019-07-21 21:26] LABS: KETONES, SERUM (ACETEST) NEGATIVE (NEGATIVE)
[2019-07-21 21:33] LABS: ALBUMIN/GLOBULIN RATIO 1.5 (1.0-2.2); ALKALINE PHOSPHATASE 80 IU/L (42-121); ALT ALANINE AMINOTRANSFERASE 26 IU/L (10-60); AST ASPARTATE AMINOTRANSFERASE 23 IU/L (10-42); BILIRUBIN,TOTAL 1.6 mg/dL (0.2-1.0); BUN - BLOOD UREA NITROGEN 22 mg/dL (6-20); CALCIUM 9.6 mg/dL (8.5-10.3); CARBON DIOXIDE - CO2 23 mmol/L (21-32); CHLORIDE 102 mmol/L (101-111); CREATININE 0.9 mg/dL (0.6-1.2); GLUCOSE 183 mg/dL (70-100); LIPASE 19 U/L (22-51); SODIUM 139 mmol/L (135-145); TOTAL PROTEIN 8.4 g/dL (6.7-8.2)
[2019-07-21] MEDS ORDERED: ONDANSETRON 4 MG/2 ML VIAL IVP STA (21:46)
[2019-07-21] MEDS ORDERED: LABETALOL 20 MG/4 ML SYRINGE IVP STA (21:56)
[2019-07-21] MEDS ORDERED: hydrALAZINE INJ 20 MG/ML VIAL IVP STA (22:22)
[2019-07-21] MEDS ORDERED: PROMETHAZINE INJ 25 MG in SODIUM CHLORIDE 0.9% 50 ML IV STA (22:22)
[2019-07-21] MEDS ORDERED: PANTOPRAZOLE 40 MG VIAL IVP STA (22:27)
--- NOTE | 2019-07-21 22:44 | HISTORY & PHYSICAL EXAMINATION ---
Chief Complaint - Chief Complaint Chief Complaint: intractable nausea/vomiting, hypertensive urgency History of Present Illness - Admitted From [facility] - History Obtained From Records Reviewed: yes History obtained from: patient - History of Present Illness HPI Comment/Other: Patient is a 63-year-old male with history of diabetes mellitus and gastroparesis as a result, who presented to the ED with complaint of intractable nausea and vomiting. It appears that it has been going on for the past 3 to 4 days intermittently. In the ED today he received 3 doses of IV anti-emetics with no improvement in his symptoms. As a result of the nausea and vomiting he has not been able to keep his home medications down. Consequently his blood pressure was as high as 240/160 in the ED. He was also given 2 doses of IV antihypertensives with no significant improvement in his blood pressure. As a result he was presented for admission. At bedside he appears more comfortable. He denies chest pain, dyspnea, abdominal pain, fever or chills. History - Past Medical History Cardiovascular: reports: Hypertension, High cholesterol Respiratory: reports: None Neuro: reports: None Endocrine/Autoimmune: reports: Type 1 diabetes GI: reports: GERD : reports: Benign prostate hypertrophy HEENT: reports: None Psych: reports: None Musculoskeletal: reports: Gout Derm: reports: None MRSA Hx?: No - Past Surgical History General: reports: Appendectomy Ortho: reports: Amputation, Other - Family & Social History Family History: Father: Cancer, Sister: Diabetes, Type 1, Brother: Cancer, Diabetes, Type 1 Living arrangement: At home Social History Notes: He smokes marijuana but no tobacco product. He drinks occasionally - POLST Patient has POLST: No POLST Status: Full Code Meds/Allgy - Home Medications Home Medications: Ambulatory Orders Medication Instructions Recorded Confirmed Atorvastatin Calcium 40 mg PO QPM 06/09/19 06/09/19 Insulin Regular Human [NovoLIN R] 2 - 10 unit SUBQ TIDWM 06/09/19 06/10/19 Omeprazole 20 mg PO QDAC 06/09/19 06/10/19 Tamsulosin [Flomax] 0.4 mg PO DAILY 06/09/19 06/10/19 Insulin NPH Human [Humulin N] 35 unit SUBQ BID 06/10/19 06/10/19 Carvedilol [Coreg] 25 mg PO BID #60 tablet 06/14/19 Losartan [Cozaar] 100 mg PO 0800 #30 tablet 06/14/19 - Allergies Allergies/Adverse Reactions: Allergies Allergy/AdvReac Type Severity Reaction Status Date / Time No Known Drug Allergies Allergy Verified 07/21/19 21:08 Review of Systems - Constitutional Constitutional: reports: Weakness. denies: Fatigue, Fever, Chills - Eyes Eyes: denies: Pain, Vision loss - Ears, Nose & Throat Ears, Nose & Throat: denies: Vertigo, Sore throat - Cardiovascular Cariovascular: denies: Chest pain, Edema, Lightheadedness, Exertional dyspnea - Respiratory Respiratory: denies: Cough, Sputum production, Wheezing, SOB at rest - Gastrointestinal Gastrointestinal: reports: Nausea, Vomiting, Reflux/heartburn. denies: Abdominal pain, Abdominal distention, Constipation, Black stools, Coffee grounds emesis - Genitourinary Genitourinary: denies: Dysuria, Frequency, Urgency, Hematuria - Musculoskeletal Musculoskeletal: reports: Gout. denies: Muscle pain, Muscle aches - Integumentary Integumentary: denies: Rash, Pruritis, Lesions - Neurological Neurological: denies: General weakness, Focal weakness - Psychiatric Psychiatric: denies: Depression, Anxiety - Endocrine Endocrine: denies: Polyuria, Polydypsia - Hematologic/Lymphatic Hematologic/Lymphatic: denies: Anemia, Bruising, Petechiae Prior Level of Functionality: He is independent of activities of daily living Exam - Vital Signs Vital Signs: Vital Signs x48h Temp Pulse Resp BP Pulse Ox 07/21/19 22:39 103 H 14 207/103 H 99 07/21/19 22:05 102 H 16 234/163 H 97 07/21/19 21:07 112 H 20 145/136 H 100 07/21/19 21:03 36.3 C L 111 H 20 241/134 H 100 - Physical Exam General Appearance: positive: Alert, Mild distress Eyes Bilateral: positive: PERRL, EOMI ENT: positive: Pharynx nml, No signs of dehydration Neck: positive: No JVD, Trachea midline Respiratory: positive: Chest non-tender, No respiratory distress, Breath sounds nml. negative: Wheezes, Rales, Rhonchi Cardiovascular: positive: Regular rate & rhythm, No murmur Abdomen: positive: Non-tender, Nml bowel sounds, No distention Back: positive: Nml inspection Skin: positive: Color nml, No rash, Warm, Cyanosis Extremities: positive: Non-tender, Nml appearance, No pedal edema Neurologic/Psychiatric: positive: Oriented x3, Mood/affect nml Conclusion/Plan - Problem List (1) Malignant hypertension Conclusion/Plan: Hydralazine and labetalol IV ordered to be given as needed for systolic blood pressure greater than 160. If this is ineffective we will consider transferring patient to the ICU for an antihypertensive drip We will resume patient's home medications once he is able to tolerate oral medication (2) Intractable nausea and vomiting Conclusion/Plan: Likely multifactorial. Secondary to gastroparesis diabeticorum and possibly marijuana use. Patient was given 3 doses of antiemetics in the ED with no improvement Reglan scheduled q6hrs. Zofran and Compazine ordered as needed IV hydration. Patient currently n.p.o. except for meds. (3) Gastroparesis diabeticorum Conclusion/Plan: Patient started on Reglan 10 mg IV every 6 hours (4) Diabetes Conclusion/Plan: Will resume patient's Lantus 35 units 3 times daily Sliding scale insulin. Accu-Cheks. Qualifiers: Diabetes mellitus type: type 1 Diabetes mellitus complication status: with other specified complication Qualified Code(s): E10.69 - Type 1 diabetes mellitus with other specified complication (5) Hyperlipidemia Conclusion/Plan: Will resume atorvastatin 40 mg p.o. nightly once patient able to tolerate (6) BPH (benign prostatic hyperplasia) Conclusion/Plan: On tamsulosin (7) GERD (gastroesophageal reflux disease) Conclusion/Plan: Protonix 40 mg IV daily ordered - Lab Results Fish Bones: 07/22/19 06:50 07/21/19 21:05 Core Measures - Anticipated LOS I expect patient to be DC'd or transferred within 96 hours.: Yes - DVT/VTE - Prophylaxis VTE/DVT Device ordered at admit?: Yes
[2019-07-21] MEDS ORDERED: LORazepam 2 MG/ML VIAL IVP STA (22:54)
[2019-07-21] MEDS ORDERED: METOCLOPRAMIDE 10 MG/2 ML VIAL IVP SCH (23:45)
[2019-07-22] MEDS: SODIUM CHLORIDE 0.9% 1,000 ML IV SCH ×3 (00:15→16:07)
[2019-07-22] MEDS: SODIUM CHLORIDE FLUSH 0.9% 10 ML SYRINGE IVP SCH ×3 (00:18→18:45)
[2019-07-22] MEDS: METOCLOPRAMIDE 10 MG/2 ML VIAL IVP SCH ×4 (04:03→22:23)
[2019-07-22] MEDS: PANTOPRAZOLE 40 MG VIAL IVP SCH (06:15)
[2019-07-22 06:56] LABS: BASOPHILS % (AUTO) 0.2 %; HGB - HEMOGLOBIN 14.4 g/dL (14.0-18.0); LYMPHOCYTES # (AUTO) 1.1 10^3/uL (1.5-3.5); LYMPHOCYTES % (AUTO) 10.8 %; MEAN CORPUSCULAR HEMOGLOBIN 31.6 pg (27.0-31.0); MEAN CORPUSCULAR HGB CONC 34.3 g/dL (32.0-36.0); MEAN CORPUSCULAR VOLUME 92.1 fL (80.0-94.0); MEAN PLATELET VOLUME 9.6 fL (7.4-11.4); NEUTROPHILS # (AUTO) 7.7 10^3/uL (1.5-6.6); NEUTROPHILS % (AUTO) 78.7 %; PLT - PLATELET COUNT 230 10^3/uL (130-450); RED BLOOD COUNT 4.56 10^6/uL (4.70-6.10); RED CELL DISTRIBUTION WIDTH 13.2 % (12.0-15.0); WHITE BLOOD COUNT 9.8 x10^3/uL (4.8-10.8)
[2019-07-22 07:14] LABS: CALCIUM 8.4 mg/dL (8.5-10.3); CREATININE 1.3 mg/dL (0.6-1.2)
[2019-07-22] MEDS: INSULIN ASPART 300 UNIT/3 ML PEN SUBQ SCH ×4 (08:01→22:22)
--- NOTE | 2019-07-22 08:35 | PHARMACY PROGRESS NOTE ---
- Best Possible Medication History Admit Date and Time: 07/21/19 6745 Processed by: Pharmacy Medication History completed: Yes Patient Interview: Completed Secondary Source(s): Pharmacy records, Insurance records As the person ultimately responsible for medication therapy, providers are able to order a medication from an existing home medication list in [facility] via the "Reconcile Routine" prior to Confirmation of that medication by support dba. Such practice is discouraged except when the physician, in their clinical judgment, deems that a medical need exists for a medication without regard to previous use.
[2019-07-22] MEDS ORDERED: INSULIN GLARGINE 300 UNIT/3 ML PEN SUBQ SCH (09:00)
--- NOTE | 2019-07-22 11:03 | PROVIDER PROGRESS NOTE ---
Assessment/Plan - Problem List (1) Intractable nausea and vomiting Assessment/Plan: Apparently he stopped taking his Reglan. Continue with PRN antiemetics and scheduled Reglan. (2) Gastroparesis diabeticorum Assessment/Plan: Continue with antiemetics PRN. Reglan should be scheduled. (3) Acute kidney injury superimposed on CKD Assessment/Plan: Likely related to dehydration from vomiting plus the underlying CKD with diabet es. Continue with IV fluids today. Slowly advance diet for oral hydration as tolerated (4) IDDM (insulin dependent diabetes mellitus) Assessment/Plan: Since he is not taking in a diet and the IV is a normal saline, will stop the bid NPH insulin, and only continue a sliding scale insulin coverage (5) Malignant hypertension Assessment/Plan: Resolved with prn iv meds. Will resume his po BP meds when nausea resolved. (6) BPH (benign prostatic hyperplasia) Assessment/Plan: On tamsulosin (7) Hyperlipidemia Assessment/Plan: Will resume atorvastatin 40 mg p.o. nightly once patient able to tolerate (8) GERD (gastroesophageal reflux disease) Assessment/Plan: Protonix 40 mg IV daily ordered - Current Meds Current Meds: Current Medications Generic Name Dose Route Start Last Admin Trade Name Freq PRN Reason Stop Dose Admin Sodium Chloride 1,000 mls @ 125 mls/hr 07/21/19 23:00 07/22/19 08:00 Normal Saline 0.9% IV 125 mls/hr .Q8H NATHANIEL Administration Insulin Aspart 2 - 10 unit 07/22/19 08:00 07/22/19 08:01 Novolog SUBQ 6 unit 0800,1200,1700,2100 NATHANIEL Administration Protocol Metoclopramide HCl 10 mg 07/22/19 04:00 07/22/19 10:14 Reglan Inj IVP 10 mg Q6H NATHANIEL Administration Pantoprazole Sodium 40 mg 07/22/19 07:00 07/22/19 06:15 Protonix IVP 40 mg QDAC NATHANIEL Administration Sodium Chloride 10 ml 07/22/19 01:00 07/22/19 00:25 Normal Saline Flush 0.9% IVP 10 ml 0100,0900,1700 NATHANIEL Administration - Lab Result Fish Bone Diagrams: 07/22/19 06:50 07/22/19 06:50 - Additional Planning My Orders: My Active Orders 07/22/19 Lunch Clear Liquid Diet [DIET] Subjective - Subjective Nursing Reports: Sedated, Other (She is mostly sleeping after getting meds for her nausea. He has not taken any p.o. intake because he has n.p.o. status ordered) Objective Vital Signs: Vital Signs - 24 hr 07/21/19 07/21/19 07/21/19 21:03 21:07 22:05 Temperature 36.3 C L Heart Rate 111 H 112 H 102 H Heart Rate [ Brachial] Respiratory 20 20 16 Rate Blood Pressure 241/134 H 145/136 H 234/163 H Blood Pressure [Right Brachial artery] O2 Saturation 100 100 97 07/21/19 07/21/19 07/22/19 22:39 23:40 00:00 Temperature 37.2 C Heart Rate 103 H Heart Rate [ 102 H 106 H Brachial] Respiratory 14 18 18 Rate Blood Pressure 207/103 H Blood Pressure 150/88 H 137/77 H [Right Brachial artery] O2 Saturation 99 100 97 07/22/19 07/22/19 05:16 07:39 Temperature 37.2 C 37.3 C Heart Rate Heart Rate [ 98 96 Brachial] Respiratory 18 16 Rate Blood Pressure Blood Pressure 168/87 H 131/73 H [Right Brachial artery] O2 Saturation 99 98 Oxygen O2 Source Room air I&O (Last 24 Hrs): Intake and Output Totals x24h 07/20/19 07/21/19 07/22/19 23:59 23:59 23:59 Intake Total 1051 968.75 Output Total 0 Balance 1051 968.75 - Results Results: Laboratory Results WBC 9.8 x10^3/uL (4.8-10.8) 07/22/19 06:50 RBC 4.56 10^6/uL (4.70-6.10) L 07/22/19 06:50 Hgb 14.4 g/dL (14.0-18.0) 07/22/19 06:50 Hct 42.0 % (42.0-52.0) 07/22/19 06:50 MCV 92.1 fL (80.0-94.0) 07/22/19 06:50 MCH 31.6 pg (27.0-31.0) H 07/22/19 06:50 MCHC 34.3 g/dL (32.0-36.0) 07/22/19 06:50 RDW 13.2 % (12.0-15.0) 07/22/19 06:50 Plt Count 230 10^3/uL (130-450) 07/22/19 06:50 MPV 9.6 fL (7.4-11.4) 07/22/19 06:50 Neut # (Auto) 7.7 10^3/uL (1.5-6.6) H 07/22/19 06:50 Lymph # (Auto) 1.1 10^3/uL (1.5-3.5) L 07/22/19 06:50 [place] # (Auto) 1.0 10^3/uL (0.0-1.0) 07/22/19 06:50 Eos # (Auto) 0.0 10^3/uL (0.0-0.7) 07/22/19 06:50 Baso # (Auto) 0.0 10^3/uL (0.0-0.1) 07/22/19 06:50 Absolute Nucleated RBC 0.00 x10^3/uL 07/22/19 06:50 Nucleated RBC % 0.0 /100WBC 07/22/19 06:50 VBG pH 7.451 (7.31-7.41) H 07/21/19 21:11 VBG pCO2 35.1 mmHg (41-51) L 07/21/19 21:11 VBG pO2 35.8 mmHg (25-47) 07/21/19 21:11 VBG HCO3 23.9 mmol/L (23-28) 07/21/19 21:11 VBG Total CO2 25.0 mmol/L (24-29) 07/21/19 21:11 VBG O2 Saturation 78.3 % (60-80) 07/21/19 21:11 VBG Base Excess 0.5 mmol/L (-2 - +2) 07/21/19 21:11 Sodium 138 mmol/L (135-145) 07/22/19 06:50 Potassium 3.8 mmol/L (3.5-5.0) 07/22/19 06:50 Chloride 105 mmol/L (101-111) 07/22/19 06:50 Carbon Dioxide 22 mmol/L (21-32) 07/22/19 06:50 Anion Gap 11.0 (6-13) 07/22/19 06:50 BUN 27 mg/dL (6-20) H 07/22/19 06:50 Creatinine 1.3 mg/dL (0.6-1.2) H 07/22/19 06:50 Estimated GFR (MDRD) 56 (>89) L 07/22/19 06:50 Glucose 251 mg/dL (70-100) H 07/22/19 06:50 Calcium 8.4 mg/dL (8.5-10.3) L 07/22/19 06:50 Total Bilirubin 1.6 mg/dL (0.2-1.0) H 07/21/19 21:05 AST 23 IU/L (10-42) 07/21/19 21:05 ALT 26 IU/L (10-60) 07/21/19 21:05 Alkaline Phosphatase 80 IU/L (42-121) 07/21/19 21:05 Troponin I High Sens 9.8 ng/L (2.3-19.7) 07/21/19 21:05 Total Protein 8.4 g/dL (6.7-8.2) H 07/21/19 21:05 Albumin 5.0 g/dL (3.2-5.5) 07/21/19 21:05 Globulin 3.4 g/dL (2.1-4.2) 07/21/19 21:05 Albumin/Globulin Ratio 1.5 (1.0-2.2) 07/21/19 21:05 Lipase 19 U/L (22-51) L 07/21/19 21:05 Ethyl Alcohol < 5.0 mg/dL 07/21/19 21:05 Serum Ketones NEGATIVE (NEGATIVE) 07/21/19 21:05 - Procedures Procedures: Procedures INSERTION OF INFUSION DEVICE INTO R ATRIUM, PERC APPROACH (06/09/19) ULTRASONOGRAPHY OF SUPERIOR VENA CAVA, GUIDANCE (06/09/19)
[2019-07-22] MEDS: hydrALAZINE INJ 20 MG/ML VIAL IVP PRN ×3 (12:06→22:31)
[2019-07-22] MEDS: ONDANSETRON 4 MG/2 ML VIAL IVP PRN (12:53)
[2019-07-22] MEDS: LABETALOL 20 MG/4 ML SYRINGE IVP PRN ×2 (12:54→17:06)
[2019-07-22] MEDS: LORazepam 2 MG/ML VIAL IVP PRN ×2 (13:56→22:47)
[2019-07-22] MEDS: METOPROLOL 5 MG/5 ML VIAL IVP SCH ×2 (14:01→18:52)
--- NOTE | 2019-07-22 19:03 | PROVIDER PROGRESS NOTE ---
Assessment/Plan - Problem List (1) Malignant hypertension Assessment/Plan: Continue labetalol and hydralazine as needed. We will resume patient's home medications tomorrow. (2) Intractable nausea and vomiting Assessment/Plan: Reglan scheduled qid Zofran, Phenergan and Ativan ordered as needed (3) Gastroparesis diabeticorum Assessment/Plan: Reglan ordered schedule (4) Diabetes Qualifiers: Diabetes mellitus type: type 1 Diabetes mellitus complication status: with other specified complication Qualified Code(s): E10.69 - Type 1 diabetes mellitus with other specified complication Assessment/Plan: Resumed Lantus 35 units twice daily. Patient is a sliding scale insulin. Accu-Cheks. Clear liquid diet. Will advance as tolerated. (5) Hyperlipidemia Assessment/Plan: On atorvastatin (6) BPH (benign prostatic hyperplasia) Assessment/Plan: On tamsulosin (7) GERD (gastroesophageal reflux disease) Assessment/Plan: On protonix (8) Acute kidney injury Assessment/Plan: Likely due to nausea vomiting. Patient is receiving IV hydration. Anticipating improvement on recheck of labs tomorrow. - Current Meds Current Meds: Current Medications Generic Name Dose Route Start Last Admin Trade Name Freq PRN Reason Stop Dose Admin Hydralazine HCl 20 mg 07/21/19 22:55 07/22/19 16:08 Apresoline Inj IVP 20 mg Q4H PRN Administration PER PHYSICIAN ORDER Sodium Chloride 1,000 mls @ 125 mls/hr 07/21/19 23:00 07/22/19 16:07 Normal Saline 0.9% IV 125 mls/hr .Q8H NATHANIEL Administration Insulin Aspart 2 - 10 unit 07/22/19 08:00 07/22/19 18:44 Novolog SUBQ 10 unit 0800,1200,1700,2100 NATHANIEL Administration Protocol Labetalol HCl 20 mg 07/21/19 22:57 07/22/19 17:06 Trandate Syringe IVP 20 mg Q4H PRN Administration PER PHYSICIAN ORDER Lorazepam 0.5 mg 07/22/19 13:16 07/22/19 13:56 Ativan Inj (Vial) IVP 0.5 mg Q4H PRN Administration Anxiety Metoclopramide HCl 10 mg 07/22/19 04:00 07/22/19 16:08 Reglan Inj IVP 10 mg Q6H NATHANIEL Administration Metoprolol Tartrate 5 mg 07/22/19 14:00 07/22/19 18:52 Lopressor Inj IVP 5 mg Q6HR NATHANIEL Administration Ondansetron HCl 4 mg 07/21/19 22:35 07/22/19 12:53 Zofran Inj IVP 4 mg Q4HR PRN Administration Nausea / Vomiting Pantoprazole Sodium 40 mg 07/22/19 07:00 07/22/19 06:15 Protonix IVP 40 mg QDAC NATHANIEL Administration Sodium Chloride 10 ml 07/22/19 01:00 07/22/19 18:45 Normal Saline Flush 0.9% IVP 10 ml 0100,0900,1700 NATHANIEL Administration - Lab Result Fish Bone Diagrams: 07/22/19 06:50 07/22/19 06:50 - Additional Planning My Orders: My Active Orders 07/21/19 22:35 Activity Orders [RC] Q2HR IO [RC] IOSHIFT Initiate Bowel Care Protocol [RC] .protocol Initiate Line Care Protocol [RC] QSHIFT Initiate Personal Care Protoco [RC] .protocol Telemetry- [RC] Q4HR Vital Signs [RC] 0800,1600,0000 Ondansetron Inj [Zofran Inj] 4 mg IVP Q4HR PRN Prochlorperazine Inj [Compazine Inj] 10 mg IVP Q4HR PRN Sodium Chloride Flush 0.9% [Normal Saline Flush 0.9%] 10 ml IVP PRN PRN Code Status [OTHERS] Routine Condition of Patient [OTHERS] Routine DVT Prophylaxis [OTHERS] Routine 07/21/19 22:42 SCDs [RC] QSHIFT 07/21/19 22:55 hydrALAZINE INJ [Apresoline Inj] 20 mg IVP Q4H PRN 07/21/19 22:57 Labetalol Syringe [Trandate Syringe] 20 mg IVP Q4H PRN 07/21/19 23:00 Sodium Chloride 0.9% [Normal Saline 0.9%] 1,000 ml IV 125 mls/hr 07/21/19 23:42 Blood Glucose Checks - Eating [RC] 0800,1200,1700,2100 Initiate Hypoglycemia Protocol [RC] .protocol 07/22/19 01:00 Sodium Chloride Flush 0.9% [Normal Saline Flush 0.9%] 10 ml IVP 0100,0900,1700 07/22/19 04:00 Metoclopramide Inj [Reglan Inj] 10 mg IVP Q6H 07/22/19 07:00 Pantoprazole [Protonix] 40 mg IVP QDAC 07/22/19 08:00 Insulin Aspart [NovoLOG] 2 - 10 unit SUBQ 0800,1200,1700,2100 07/23/19 05:00 BMP - BASIC METABOLIC PANEL [CHEM] DAILYLAB CBC - COMP BLD CT W/AUTO DIFF [HEME] DAILYLAB 07/24/19 05:00 BMP - BASIC METABOLIC PANEL [CHEM] DAILYLAB CBC - COMP BLD CT W/AUTO DIFF [HEME] DAILYLAB 07/25/19 05:00 BMP - BASIC METABOLIC PANEL [CHEM] DAILYLAB CBC - COMP BLD CT W/AUTO DIFF [HEME] DAILYLAB Subjective - Subjective Patient Reports: Other (Patient seen and examined this evening. He was given clear liquid diet earlier today. However he has been dry heaving and has not taken much of the diet. His blood pressure has been intermittently high throughout the day with a systolic reading as high as 196. He denies any other complaints) Objective Vital Signs: Vital Signs - 24 hr 07/21/19 07/21/19 07/21/19 21:03 21:07 22:05 Temperature 36.3 C L Heart Rate 111 H 112 H 102 H Heart Rate [ Brachial] Respiratory 20 20 16 Rate Blood Pressure 241/134 H 145/136 H 234/163 H Blood Pressure [Right Brachial artery] O2 Saturation 100 100 97 07/21/19 07/21/19 07/22/19 22:39 23:40 00:00 Temperature 37.2 C Heart Rate 103 H Heart Rate [ 102 H 106 H Brachial] Respiratory 14 18 18 Rate Blood Pressure 207/103 H Blood Pressure 150/88 H 137/77 H [Right Brachial artery] O2 Saturation 99 100 97 07/22/19 07/22/19 07/22/19 05:16 07:39 12:02 Temperature 37.2 C 37.3 C 37.4 C Heart Rate Heart Rate [ 98 96 111 H Brachial] Respiratory 18 16 16 Rate Blood Pressure Blood Pressure 168/87 H 131/73 H 226/121 H [Right Brachial artery] O2 Saturation 99 98 99 07/22/19 07/22/19 07/22/19 12:06 12:08 12:14 Temperature Heart Rate Heart Rate [ 103 H 103 H Brachial] Respiratory 16 16 Rate Blood Pressure 215/117 H Blood Pressure 215/117 H 167/76 H [Right Brachial artery] O2 Saturation 95 96 07/22/19 07/22/19 07/22/19 12:16 12:30 12:36 Temperature Heart Rate Heart Rate [ 109 H 110 H Brachial] Respiratory 16 16 Rate Blood Pressure 228/112 H Blood Pressure 157/87 H 225/121 H [Right Brachial artery] O2 Saturation 98 100 07/22/19 07/22/19 07/22/19 12:44 12:58 13:00 Temperature Heart Rate Heart Rate [ 117 H 112 H 109 H Brachial] Respiratory 17 16 16 Rate Blood Pressure Blood Pressure 228/112 H 230/119 H 210/104 H [Right Brachial artery] O2 Saturation 100 100 100 07/22/19 07/22/19 07/22/19 14:01 14:04 14:10 Temperature 37.5 C Heart Rate Heart Rate [ 102 H 99 Brachial] Respiratory 16 16 Rate Blood Pressure 217/112 H Blood Pressure 217/112 H 198/95 H [Right Brachial artery] O2 Saturation 99 96 07/22/19 07/22/19 07/22/19 14:13 14:25 14:30 Temperature Heart Rate Heart Rate [ 97 Brachial] Respiratory 16 Rate Blood Pressure Blood Pressure 199/99 H 214/106 H 214/106 H [Right Brachial artery] O2 Saturation 98 07/22/19 07/22/19 07/22/19 14:50 16:08 16:38 Temperature Heart Rate Heart Rate [ 98 Brachial] Respiratory 16 Rate Blood Pressure 210/95 H 199/94 H Blood Pressure 202/92 H [Right Brachial artery] O2 Saturation 96 07/22/19 07/22/19 07/22/19 17:20 18:26 18:52 Temperature 37.0 C Heart Rate Heart Rate [ 100 102 H Brachial] Respiratory 16 Rate Blood Pressure 196/103 H Blood Pressure 178/90 H 189/99 H [Right Brachial artery] O2 Saturation 100 Oxygen O2 Source Room air I&O (Last 24 Hrs): Intake and Output Totals x24h 07/20/19 07/21/19 07/22/19 23:59 23:59 23:59 Intake Total 1051 1968.75 Output Total 1650 Balance 1051 318.75 General: Alert, Oriented x3, No acute distress HEENT: PERRLA, EOMI Neck: Supple, No JVD Neuro: Alert, Non Focal Cardiovascular: Regular rate Respiratory: Chest non-tender, No respiratory distress, Breath sounds nml Abdomen: Soft, Other (decreased bowel sounds. Dry heaving) Skin: No rashes - Results Results: Laboratory Results WBC 9.8 x10^3/uL (4.8-10.8) 07/22/19 06:50 RBC 4.56 10^6/uL (4.70-6.10) L 07/22/19 06:50 Hgb 14.4 g/dL (14.0-18.0) 07/22/19 06:50 Hct 42.0 % (42.0-52.0) 07/22/19 06:50 MCV 92.1 fL (80.0-94.0) 07/22/19 06:50 MCH 31.6 pg (27.0-31.0) H 07/22/19 06:50 MCHC 34.3 g/dL (32.0-36.0) 07/22/19 06:50 RDW 13.2 % (12.0-15.0) 07/22/19 06:50 Plt Count 230 10^3/uL (130-450) 07/22/19 06:50 MPV 9.6 fL (7.4-11.4) 07/22/19 06:50 Neut # (Auto) 7.7 10^3/uL (1.5-6.6) H 07/22/19 06:50 Lymph # (Auto) 1.1 10^3/uL (1.5-3.5) L 07/22/19 06:50 [place] # (Auto) 1.0 10^3/uL (0.0-1.0) 07/22/19 06:50 Eos # (Auto) 0.0 10^3/uL (0.0-0.7) 07/22/19 06:50 Baso # (Auto) 0.0 10^3/uL (0.0-0.1) 07/22/19 06:50 Absolute Nucleated RBC 0.00 x10^3/uL 07/22/19 06:50 Nucleated RBC % 0.0 /100WBC 07/22/19 06:50 VBG pH 7.451 (7.31-7.41) H 07/21/19 21:11 VBG pCO2 35.1 mmHg (41-51) L 07/21/19 21:11 VBG pO2 35.8 mmHg (25-47) 07/21/19 21:11 VBG HCO3 23.9 mmol/L (23-28) 07/21/19 21:11 VBG Total CO2 25.0 mmol/L (24-29) 07/21/19 21:11 VBG O2 Saturation 78.3 % (60-80) 07/21/19 21:11 VBG Base Excess 0.5 mmol/L (-2 - +2) 07/21/19 21:11 Sodium 138 mmol/L (135-145) 07/22/19 06:50 Potassium 3.8 mmol/L (3.5-5.0) 07/22/19 06:50 Chloride 105 mmol/L (101-111) 07/22/19 06:50 Carbon Dioxide 22 mmol/L (21-32) 07/22/19 06:50 Anion Gap 11.0 (6-13) 07/22/19 06:50 BUN 27 mg/dL (6-20) H 07/22/19 06:50 Creatinine 1.3 mg/dL (0.6-1.2) H 07/22/19 06:50 Estimated GFR (MDRD) 56 (>89) L 07/22/19 06:50 Glucose 251 mg/dL (70-100) H 07/22/19 06:50 Calcium 8.4 mg/dL (8.5-10.3) L 07/22/19 06:50 Total Bilirubin 1.6 mg/dL (0.2-1.0) H 07/21/19 21:05 AST 23 IU/L (10-42) 07/21/19 21:05 ALT 26 IU/L (10-60) 07/21/19 21:05 Alkaline Phosphatase 80 IU/L (42-121) 07/21/19 21:05 Troponin I High Sens 9.8 ng/L (2.3-19.7) 07/21/19 21:05 Total Protein 8.4 g/dL (6.7-8.2) H 07/21/19 21:05 Albumin 5.0 g/dL (3.2-5.5) 07/21/19 21:05 Globulin 3.4 g/dL (2.1-4.2) 07/21/19 21:05 Albumin/Globulin Ratio 1.5 (1.0-2.2) 07/21/19 21:05 Lipase 19 U/L (22-51) L 07/21/19 21:05 Ethyl Alcohol < 5.0 mg/dL 07/21/19 21:05 Serum Ketones NEGATIVE (NEGATIVE) 07/21/19 21:05 - Procedures Procedures: Procedures INSERTION OF INFUSION DEVICE INTO R ATRIUM, PERC APPROACH (06/09/19) ULTRASONOGRAPHY OF SUPERIOR VENA CAVA, GUIDANCE (06/09/19) ABX Reporting Has patient been on IV antibiotics over the past 48 hours?: No
[2019-07-22] MEDS ORDERED: ATORVASTATIN 40 MG TABLET PO SCH (21:00)
[2019-07-23] MEDS: SODIUM CHLORIDE 0.9% 1,000 ML IV SCH ×5 (00:34→20:42)
[2019-07-23] MEDS: ONDANSETRON 4 MG/2 ML VIAL IVP PRN (00:34)
[2019-07-23] MEDS: METOPROLOL 5 MG/5 ML VIAL IVP SCH ×5 (00:40→17:29)
[2019-07-23] MEDS: SODIUM CHLORIDE FLUSH 0.9% 10 ML SYRINGE IVP SCH ×2 (00:44→09:20)
[2019-07-23] MEDS: PROCHLORPERAZINE 10 MG/2 ML VIAL IVP PRN ×4 (02:59→23:14)
[2019-07-23] MEDS: METOCLOPRAMIDE 10 MG/2 ML VIAL IVP SCH ×4 (03:34→23:00)
[2019-07-23] MEDS: PANTOPRAZOLE 40 MG VIAL IVP SCH (06:00)
[2019-07-23 06:10] LABS: BASOPHILS % (AUTO) 0.2 %; HGB - HEMOGLOBIN 15.5 g/dL (14.0-18.0); LYMPHOCYTES # (AUTO) 0.6 10^3/uL (1.5-3.5); LYMPHOCYTES % (AUTO) 4.4 %; MEAN CORPUSCULAR HEMOGLOBIN 31.4 pg (27.0-31.0); MEAN CORPUSCULAR HGB CONC 33.5 g/dL (32.0-36.0); MEAN CORPUSCULAR VOLUME 93.9 fL (80.0-94.0); MEAN PLATELET VOLUME 10.2 fL (7.4-11.4); MONOCYTES # (AUTO) 0.9 10^3/uL (0.0-1.0); MONOCYTES % (AUTO) 7.1 %; NEUTROPHILS % (AUTO) 87.9 %; PLT - PLATELET COUNT 237 10^3/uL (130-450); RED BLOOD COUNT 4.93 10^6/uL (4.70-6.10); RED CELL DISTRIBUTION WIDTH 13.5 % (12.0-15.0); WHITE BLOOD COUNT 12.5 x10^3/uL (4.8-10.8)
[2019-07-23 06:19] LABS: CALCIUM 9.1 mg/dL (8.5-10.3); CREATININE 1.6 mg/dL (0.6-1.2)
[2019-07-23 07:56] LABS: BILIRUBIN,URINE NEGATIVE (NEGATIVE); GLUCOSE, URINE (UA) >=1000 mg/dL (NEGATIVE); KETONES,URINE (UA) 40 mg/dL (NEGATIVE); LEUKOCYTE ESTERASE, URINE NEGATIVE (NEGATIVE); NITRITE,URINE NEGATIVE (NEGATIVE); OCCULT BLOOD,URINE SMALL (NEGATIVE); PH,URINE 5.5 PH (5.0-7.5); PROTEIN,URINE 30 mg/dL (NEGATIVE); UROBILINOGEN,URINE 0.2 (NORMAL) E.U./dL (NORMAL)
[2019-07-23 08:00] LABS: CLARITY,URINE CLEAR (CLEAR)
[2019-07-23 08:09] LABS: BACTERIA,URINE Rare /HPF (None Seen); RBC,URINE 0-5 /HPF (0-5); SQUAMOUS EPITHELIAL CELL,UR NONE SEEN (<= Few)
[2019-07-23] MEDS: LABETALOL 20 MG/4 ML SYRINGE IVP PRN (08:44)
[2019-07-23] MEDS: INSULIN ASPART 300 UNIT/3 ML PEN SUBQ SCH ×4 (08:48→21:43)
[2019-07-23] MEDS ORDERED: LOSARTAN 50 MG TABLET PO SCH (09:00)
[2019-07-23] MEDS ORDERED: carvediloL 12.5 MG TABLET PO SCH (09:00)
[2019-07-23] MEDS ORDERED: TAMSULOSIN 0.4 MG CAPSULE PO SCH (09:00)
[2019-07-23] MEDS ORDERED: cloNIDine 0.1 MG PATCH TOP SCH (11:00)
[2019-07-23] MEDS: ONDANSETRON ODT 4 MG TABLET TL PRN ×2 (12:01→18:43)
[2019-07-23 12:41] LABS: VBG PH 7.385 (7.31-7.41)
[2019-07-23 12:42] LABS: VBG BASE EXCESS -3.5 mmol/L (-2 - +2); VBG PCO2 35.5 mmHg (41-51); VBG PO2 51.5 mmHg (25-47); VBG TOTAL CO2 21.9 mmol/L (24-29)
[2019-07-23 12:55] LABS: CALCIUM 8.7 mg/dL (8.5-10.3); CREATININE 1.5 mg/dL (0.6-1.2); MAGNESIUM 2.1 mg/dL (1.7-2.8)
--- NOTE | 2019-07-23 13:00 | XRAY Report ---
Reason: central line placement Procedure Date: 07/23/2019 Accession Number: [id number] / [id number] Procedure: XR - Chest for Line Placement CPT Code: Final Report FULL RESULT: EXAM: CHEST RADIOGRAPHY EXAM DATE: 07/23/2019 12:52 PM. CLINICAL HISTORY: Central line placement. COMPARISON: 06/11/2019. TECHNIQUE: 1 view. FINDINGS: Lungs/Pleura: No focal opacities evident. No pleural effusion. No pneumothorax. Mediastinum: Within exam limitations, the cardiomediastinal contour is normal. Other: Right internal jugular central venous catheter tip terminates in the distal SVC. IMPRESSION: Right internal jugular central venous catheter tip terminates in the distal SVC. No pneumothorax. RADIA
--- NOTE | 2019-07-23 13:23 | ANESTHESIA PROCEDURE NOTE ---
Anesth Central Line Template - Central Line Central Line Preparation: Consent Obtained, Time out completed, Ultrasound used, Sterile prep and drape Central line location: Right IJ Central line type: Triple lumen Central line catheter tip site resides: Superior vena cava (SVC) Central line aftercare: Chlorhexidine disc placed, Secured, Placement confirmed, No pneumothorax, No complications, Bundle checklist complete, Pt tolerated well Other Info/Details: Central line placed RIJ via ultrasound without difficulty using sterile technique and full PPE. Sutured in place at a depth of 15cm at the skin and dressed with tegaderm. Pt tolerated well.
[2019-07-23] MEDS: METOCLOPRAMIDE 10 MG TABLET PO SCH ×3 (14:50→21:03)
[2019-07-23 15:11] LABS: BILIRUBIN,URINE NEGATIVE (NEGATIVE); GLUCOSE, URINE (UA) >=1000 mg/dL (NEGATIVE); KETONES,URINE (UA) 40 mg/dL (NEGATIVE); LEUKOCYTE ESTERASE, URINE NEGATIVE (NEGATIVE); NITRITE,URINE NEGATIVE (NEGATIVE); OCCULT BLOOD,URINE TRACE-INTA (NEGATIVE); PH,URINE 5.5 PH (5.0-7.5); PROTEIN,URINE TRACE mg/dL (NEGATIVE); UROBILINOGEN,URINE 0.2 (NORMAL) E.U./dL (NORMAL)
[2019-07-23 15:19] LABS: CLARITY,URINE HAZY (CLEAR)
[2019-07-23] MEDS: INSULIN REGULAR HUMAN 100 UNIT in SODIUM CHLORIDE 0.9% 100ML 99 ML IV SCH ×4 (15:21→21:57)
[2019-07-23 15:28] LABS: BACTERIA,URINE None Seen /HPF (None Seen); CASTS, URINE 3-5 Hyaline Casts /LPF; RBC,URINE 0-5 /HPF (0-5); SQUAMOUS EPITHELIAL CELL,UR RARE Squamous (<= Few)
[2019-07-23] MEDS ORDERED: POTASSIUM CHLOR 10 MEQ/100 ML 10 MEQ/100 ML BAG IV ONE ×2 (17:22→20:26)
[2019-07-23 17:54] LABS: MAGNESIUM 2.4 mg/dL (1.7-2.8); PHOSPHORUS 2.2 mg/dL (2.5-4.6)
[2019-07-23] MEDS ORDERED: INSULIN REGULAR HUMAN 300 UNIT/3 ML VIAL ONE (18:59)
--- NOTE | 2019-07-23 19:17 | PROVIDER PROGRESS NOTE ---
Assessment/Plan - Problem List (1) Malignant hypertension Assessment/Plan: Continue labetalol and hydralazine as needed. A clonidine patch was added to patient's regimen (2) Intractable nausea and vomiting Assessment/Plan: Reglan scheduled qid Zofran, Phenergan and Ativan ordered as needed (3) Gastroparesis diabeticorum Assessment/Plan: Reglan ordered schedule (4) Diabetes Qualifiers: Diabetes mellitus type: type 1 Diabetes mellitus complication status: with other specified complication Qualified Code(s): E10.69 - Type 1 diabetes mellitus with other specified complication Assessment/Plan: Patient's blood glucose this morning was 450 and an anion gap of 16. As a result the patient was transferred to the ICU for an insulin drip. (5) Hyperlipidemia Assessment/Plan: Will resume atorvastatin when patient able to tolerate oral medication (6) BPH (benign prostatic hyperplasia) Assessment/Plan: Resume tamsulosin when patient able to tolerate (7) GERD (gastroesophageal reflux disease) Assessment/Plan: On Protonix (8) Acute kidney injury Assessment/Plan: Renal function was slightly worsened today. Patient's creatinine was 1.6. Patient is receiving IV hydration. We will recheck in the morning. - Current Meds Current Meds: Current Medications Generic Name Dose Route Start Last Admin Trade Name Freq PRN Reason Stop Dose Admin Clonidine HCl 1 patch 07/23/19 11:00 07/23/19 11:14 [id number] TOP 1 patch Q7D NATHANIEL Administration Hydralazine HCl 20 mg 07/21/19 22:55 07/22/19 22:31 Apresoline Inj IVP 20 mg Q4H PRN Administration PER PHYSICIAN ORDER Sodium Chloride 1,000 mls @ 125 mls/hr 07/21/19 23:00 07/23/19 15:01 Normal Saline 0.9% IV 125 mls/hr .Q8H NATHANIEL Administration Insulin Human Regular 100 unit 100 mls @ 11 mls/hr 07/23/19 08:00 07/23/19 19:05 / Sodium Chloride IV Not Given .Q9H6M NATHANIEL Protocol 11 UNIT/HR Insulin Aspart 3 - 11 unit 07/23/19 08:00 07/23/19 17:07 Novolog SUBQ Not Given 0800,1200,1700,2100 NATHANIEL Protocol Labetalol HCl 20 mg 07/21/19 22:57 07/23/19 08:44 Trandate Syringe IVP 20 mg Q4H PRN Administration PER PHYSICIAN ORDER Lorazepam 0.5 mg 07/22/19 13:16 07/22/19 22:47 Ativan Inj (Vial) IVP 0.5 mg Q4H PRN Administration Anxiety Metoclopramide HCl 10 mg 07/22/19 04:00 07/23/19 16:17 Reglan Inj IVP Not Given Q6H NATHANIEL Metoclopramide HCl 10 mg 07/23/19 12:00 07/23/19 16:17 Reglan PO Not Given ACHS NATHANIEL Metoprolol Tartrate 5 mg 07/22/19 14:00 07/23/19 17:29 Lopressor Inj IVP 5 mg Q6HR NATHANIEL Administration Ondansetron HCl 4 mg 07/21/19 22:35 07/23/19 00:34 Zofran Inj IVP 4 mg Q4HR PRN Administration Nausea / Vomiting Ondansetron HCl 4 mg 07/23/19 11:43 07/23/19 18:43 Zofran Odt TL 4 mg Q4HR PRN Administration Nausea / Vomiting Pantoprazole Sodium 40 mg 07/22/19 07:00 07/23/19 06:00 Protonix IVP 40 mg QDAC NATHANIEL Administration Prochlorperazine Edisylate 10 mg 07/21/19 22:35 07/23/19 18:57 Compazine Inj IVP 10 mg Q4HR PRN Administration Nausea / Vomiting Sodium Chloride 10 ml 07/22/19 01:00 07/23/19 09:20 Normal Saline Flush 0.9% IVP 10 ml 0100,0900,1700 NATHANIEL Administration - Lab Result Fish Bone Diagrams: 07/23/19 05:30 07/23/19 19:18 - Additional Planning My Orders: My Active Orders 07/23/19 07:32 Electrolyte [Initiate ICU Electrolyte Prot.] [RC] QSHIFT 07/23/19 07:34 Initiate DKA RN Protocol [RC] .protocol Initiate Hypoglycemia Protocol [RC] .protocol Initiate ICU Electrolyte Prot. [RC] .protocol 07/23/19 08:00 Insulin Aspart [NovoLOG] 3 - 11 unit SUBQ 0800,1200,1700,2100 Sodium Chloride 0.9% 100Ml [Normal Saline 0.9% 100Ml] 99 ml Insulin Regular Human [NovoLIN R] 100 unit IV 11 unit/hr 07/23/19 20:00 D5.45NS @ 125 mls/hr Dextrose 5%-0.45% NaCl [D5.45ns] 1,000 ml IV 125 mls/hr 07/24/19 05:00 BMP - BASIC METABOLIC PANEL [CHEM] DAILYLAB CBC - COMP BLD CT W/AUTO DIFF [HEME] DAILYLAB 07/25/19 05:00 BMP - BASIC METABOLIC PANEL [CHEM] DAILYLAB CBC - COMP BLD CT W/AUTO DIFF [HEME] DAILYLAB Subjective - Subjective Patient Reports: Other (Patient seen and examined this evening. He was sleeping at the time of my exam but readily awoke to verbal stimuli. He appeared more reserved today than normal. However he denied any complaints. This morning he had an anion gap of 16 and a blood sugar of 452 as a result he was transferred to the ICU for insulin drip. However it was reported that IV access could only be established around 2 PM dose of insulin administration was delayed. He has been on insulin since then and his gap appears to have closed.) Objective Vital Signs: Vital Signs - 24 hr 07/22/19 07/22/19 07/23/19 19:39 22:31 00:00 Temperature 37.3 C 36.9 C Heart Rate [ 101 H 102 H Brachial] Respiratory 16 16 Rate Blood Pressure 221/110 H Blood Pressure 169/80 H 127/80 [Right Brachial artery] O2 Saturation 99 07/23/19 07/23/19 07/23/19 00:30 00:40 01:18 Temperature Heart Rate [ 98 Brachial] Respiratory Rate Blood Pressure 127/80 127/80 Blood Pressure 123/59 L [Right Brachial artery] O2 Saturation 07/23/19 07/23/19 07/23/19 02:53 05:50 05:56 Temperature 37.2 C Heart Rate [ 111 H 111 H Brachial] Respiratory 18 Rate Blood Pressure 210/104 H Blood Pressure 220/107 H 210/104 H [Right Brachial artery] O2 Saturation 100 07/23/19 07/23/19 07/23/19 07:59 09:14 09:47 Temperature 36.6 C 36.6 C Heart Rate [ 105 H 107 H Brachial] Respiratory 22 20 Rate Blood Pressure Blood Pressure 214/109 H 210/107 H 131/80 H [Right Brachial artery] O2 Saturation 97 100 07/23/19 07/23/19 07/23/19 11:04 11:22 12:00 Temperature Heart Rate [ 93 Brachial] Respiratory Rate Blood Pressure Blood Pressure 206/119 H 128/71 180/100 H [Right Brachial artery] O2 Saturation 92 07/23/19 07/23/19 07/23/19 12:13 12:22 13:00 Temperature Heart Rate [ 93 Brachial] Respiratory 20 Rate Blood Pressure Blood Pressure 180/100 H 154/85 H 124/73 [Right Brachial artery] O2 Saturation 98 07/23/19 07/23/19 07/23/19 14:00 14:58 15:04 Temperature Heart Rate [ 88 Brachial] Respiratory 18 Rate Blood Pressure 115/69 Blood Pressure 115/69 207/109 H [Right Brachial artery] O2 Saturation 95 100 07/23/19 07/23/19 07/23/19 15:39 15:45 16:00 Temperature 36.8 C 36.8 C Heart Rate [ 88 Brachial] Respiratory 18 Rate Blood Pressure Blood Pressure 135/78 H 131/84 H [Right Brachial artery] O2 Saturation 98 07/23/19 07/23/19 07/23/19 17:03 17:29 18:04 Temperature Heart Rate [ 82 Brachial] Respiratory Rate Blood Pressure 186/111 H Blood Pressure 186/111 H 121/73 [Right Brachial artery] O2 Saturation 97 Oxygen O2 Source Room air I&O (Last 24 Hrs): Intake and Output Totals x24h 07/21/19 07/22/19 07/23/19 23:59 23:59 23:59 Intake Total 1051 2328.75 3761.549 Output Total 1650 1950 Balance 1051 678.75 1811.549 General: Alert, Oriented x3, No acute distress HEENT: Atraumatic, PERRLA, EOMI Neck: Supple, No JVD Neuro: Alert, Oriented Times 3 Cardiovascular: Regular rate Respiratory: Chest non-tender, No respiratory distress, Breath sounds nml Abdomen: Soft, No tenderness, Other (dry heaving persists) Skin: No rashes - Results Results: Laboratory Results WBC 12.5 x10^3/uL (4.8-10.8) H 07/23/19 05:30 RBC 4.93 10^6/uL (4.70-6.10) 07/23/19 05:30 Hgb 15.5 g/dL (14.0-18.0) 07/23/19 05:30 Hct 46.3 % (42.0-52.0) 07/23/19 05:30 MCV 93.9 fL (80.0-94.0) 07/23/19 05:30 MCH 31.4 pg (27.0-31.0) H 07/23/19 05:30 MCHC 33.5 g/dL (32.0-36.0) 07/23/19 05:30 RDW 13.5 % (12.0-15.0) 07/23/19 05:30 Plt Count 237 10^3/uL (130-450) 07/23/19 05:30 MPV 10.2 fL (7.4-11.4) 07/23/19 05:30 Neut # (Auto) 11.0 10^3/uL (1.5-6.6) H 07/23/19 05:30 Lymph # (Auto) 0.6 10^3/uL (1.5-3.5) L 07/23/19 05:30 [place] # (Auto) 0.9 10^3/uL (0.0-1.0) 07/23/19 05:30 Eos # (Auto) 0.0 10^3/uL (0.0-0.7) 07/23/19 05:30 Baso # (Auto) 0.0 10^3/uL (0.0-0.1) 07/23/19 05:30 Absolute Nucleated RBC 0.00 x10^3/uL 07/23/19 05:30 Nucleated RBC % 0.0 /100WBC 07/23/19 05:30 VBG pH 7.385 (7.31-7.41) 07/23/19 12:23 VBG pCO2 35.5 mmHg (41-51) L 07/23/19 12:23 VBG pO2 51.5 mmHg (25-47) H 07/23/19 12:23 VBG HCO3 20.8 mmol/L (23-28) L 07/23/19 12:23 VBG Total CO2 21.9 mmol/L (24-29) L 07/23/19 12:23 VBG O2 Saturation 87.9 % (60-80) H 07/23/19 12:23 VBG Base Excess -3.5 mmol/L (-2 - +2) L 07/23/19 12:23 Sodium 135 mmol/L (135-145) 07/23/19 12:23 Potassium 3.5 mmol/L (3.5-5.0) 07/23/19 16:58 Chloride 104 mmol/L (101-111) 07/23/19 12:23 Carbon Dioxide 19 mmol/L (21-32) L 07/23/19 12:23 Anion Gap 12.0 (6-13) 07/23/19 12:23 BUN 43 mg/dL (6-20) H 07/23/19 12:23 Creatinine 1.5 mg/dL (0.6-1.2) H 07/23/19 12:23 Estimated GFR (MDRD) 47 (>89) L 07/23/19 12:23 Glucose 428 mg/dL (70-100) H 07/23/19 12:23 Calcium 8.7 mg/dL (8.5-10.3) 07/23/19 12:23 Phosphorus 2.2 mg/dL (2.5-4.6) L 07/23/19 16:58 Magnesium 2.4 mg/dL (1.7-2.8) 07/23/19 16:58 Total Bilirubin 1.6 mg/dL (0.2-1.0) H 07/21/19 21:05 AST 23 IU/L (10-42) 07/21/19 21:05 ALT 26 IU/L (10-60) 07/21/19 21:05 Alkaline Phosphatase 80 IU/L (42-121) 07/21/19 21:05 Troponin I High Sens 9.8 ng/L (2.3-19.7) 07/21/19 21:05 Total Protein 8.4 g/dL (6.7-8.2) H 07/21/19 21:05 Albumin 5.0 g/dL (3.2-5.5) 07/21/19 21:05 Globulin 3.4 g/dL (2.1-4.2) 07/21/19 21:05 Albumin/Globulin Ratio 1.5 (1.0-2.2) 07/21/19 21:05 Lipase 19 U/L (22-51) L 07/21/19 21:05 Urine Color YELLOW 07/23/19 12:50 Urine Clarity HAZY (CLEAR) 07/23/19 12:50 Urine pH 5.5 PH (5.0-7.5) 07/23/19 12:50 Ur Specific [place] 1.020 (1.002-1.030) 07/23/19 12:50 Urine Protein TRACE mg/dL (NEGATIVE) 07/23/19 12:50 Urine Glucose (UA) >=1000 mg/dL (NEGATIVE) H 07/23/19 12:50 Urine Ketones 40 mg/dL (NEGATIVE) H 07/23/19 12:50 Urine Occult Blood TRACE-INTA (NEGATIVE) 07/23/19 12:50 Urine Nitrite NEGATIVE (NEGATIVE) 07/23/19 12:50 Urine Bilirubin NEGATIVE (NEGATIVE) 07/23/19 12:50 Urine Urobilinogen 0.2 (NORMAL) E.U./dL (NORMAL) 07/23/19 12:50 Ur Leukocyte Esterase NEGATIVE (NEGATIVE) 07/23/19 12:50 Urine RBC 0-5 /HPF (0-5) 07/23/19 12:50 Urine WBC 0-3 /HPF (0-3) 07/23/19 12:50 Ur Squamous Epith Cells RARE Squamous (<= Few) 07/23/19 12:50 Urine Bacteria None Seen /HPF (None Seen) 07/23/19 12:50 Urine Casts 3-5 Hyaline Casts /LPF 07/23/19 12:50 Ur Microscopic Review INDICATED 07/23/19 12:50 Urine Culture Comments NOT INDICATED 07/23/19 07:50 Ethyl Alcohol < 5.0 mg/dL 07/21/19 21:05 Serum Ketones NEGATIVE (NEGATIVE) 07/21/19 21:05 - Procedures Procedures: Procedures INSERTION OF INFUSION DEVICE INTO R ATRIUM, PERC APPROACH (06/09/19) ULTRASONOGRAPHY OF SUPERIOR VENA CAVA, GUIDANCE (06/09/19) ABX Reporting Has patient been on IV antibiotics over the past 48 hours?: No
[2019-07-23] MEDS: DEXTROSE 5%-0.45% NACL 1,000 ML IV SCH (19:58)
[2019-07-23] MEDS: LORazepam 2 MG/ML VIAL IVP PRN (20:54)
[2019-07-23 22:18] LABS: CALCIUM 8.3 mg/dL (8.5-10.3); CREATININE 1.3 mg/dL (0.6-1.2)
[2019-07-24] MEDS: METOPROLOL 5 MG/5 ML VIAL IVP SCH ×2 (00:05→06:15)
[2019-07-24] MEDS: SODIUM CHLORIDE FLUSH 0.9% 10 ML SYRINGE IVP SCH ×3 (00:24→17:26)
[2019-07-24] MEDS: SODIUM CHLORIDE 0.9% 1,000 ML IV SCH ×3 (01:14→12:36)
[2019-07-24] MEDS: LORazepam 2 MG/ML VIAL IVP PRN ×3 (03:19→22:58)
[2019-07-24] MEDS: PROCHLORPERAZINE 10 MG/2 ML VIAL IVP PRN (03:19)
[2019-07-24] MEDS: INSULIN REGULAR HUMAN 100 UNIT in SODIUM CHLORIDE 0.9% 100ML 99 ML IV SCH (04:22)
[2019-07-24] MEDS ORDERED: DEXTROSE 5%-0.45% NACL 1,000 ML IV SCH (04:30)
[2019-07-24] MEDS: DEXTROSE 5%-0.45% NACL 1,000 ML IV SCH (05:00)
[2019-07-24] MEDS: METOCLOPRAMIDE 10 MG/2 ML VIAL IVP SCH ×4 (05:20→22:05)
[2019-07-24 05:48] LABS: BASOPHILS % (AUTO) 0.2 %; HGB - HEMOGLOBIN 14.5 g/dL (14.0-18.0); LYMPHOCYTES # (AUTO) 1.1 10^3/uL (1.5-3.5); LYMPHOCYTES % (AUTO) 7.4 %; MEAN CORPUSCULAR HEMOGLOBIN 30.5 pg (27.0-31.0); MEAN CORPUSCULAR HGB CONC 33.3 g/dL (32.0-36.0); MEAN CORPUSCULAR VOLUME 91.6 fL (80.0-94.0); MEAN PLATELET VOLUME 9.8 fL (7.4-11.4); MONOCYTES % (AUTO) 6.6 %; NEUTROPHILS # (AUTO) 12.5 10^3/uL (1.5-6.6); NEUTROPHILS % (AUTO) 85.3 %; PLT - PLATELET COUNT 224 10^3/uL (130-450); RED BLOOD COUNT 4.76 10^6/uL (4.70-6.10); RED CELL DISTRIBUTION WIDTH 13.2 % (12.0-15.0); WHITE BLOOD COUNT 14.6 x10^3/uL (4.8-10.8)
[2019-07-24 05:57] LABS: CALCIUM 8.6 mg/dL (8.5-10.3); CREATININE 1.3 mg/dL (0.6-1.2)
[2019-07-24] MEDS ORDERED: POTASSIUM CHLOR 20 MEQ/100 ML 20 MEQ/100 ML BAG IV ONE (06:07)
[2019-07-24 06:26] LABS: MAGNESIUM 1.8 mg/dL (1.7-2.8); PHOSPHORUS 2.1 mg/dL (2.5-4.6)
[2019-07-24] MEDS: PANTOPRAZOLE 40 MG VIAL IVP SCH (06:28)
[2019-07-24] MEDS ORDERED: POTASSIUM PHOSPHATE 15 MMOL in SODIUM CHLORIDE 0.9% 250 ML IV ONE ×2 (06:35→08:00)
[2019-07-24] MEDS ORDERED: SODIUM CHLORIDE 0.9% 1,000 ML IV SCH (07:00)
[2019-07-24] MEDS: METOCLOPRAMIDE 10 MG TABLET PO SCH ×4 (07:36→21:24)
[2019-07-24] MEDS: SODIUM CHLORIDE FLUSH 0.9% 10 ML SYRINGE IVP PRN (07:50)
--- NOTE | 2019-07-24 07:57 | XRAY Report ---
Reason: fever, leukocytosis, ? pneumonia Procedure Date: 07/24/2019 Accession Number: [id number] / [id number] Procedure: XR - Chest 1 View X-Ray CPT Code: 65592 Final Report FULL RESULT: EXAM: CHEST RADIOGRAPHY EXAM DATE: 07/24/2019 07:43 AM. CLINICAL HISTORY: Fever, leukocytosis, ? pneumonia. COMPARISON: CHEST FOR LINE PLACEMENT 07/23/2019 12:34 PM. TECHNIQUE: Upright AP view. FINDINGS: Lungs/Pleura: Lung volumes mildly low, as before. No focal opacities evident. No pleural effusion. No pneumothorax. Mediastinum: Within exam limitations, the cardiomediastinal contour is normal. Right IJ catheter in the upper SVC, as before. Other: None. IMPRESSION: Negative chest. Lungs are clear. RADIA
[2019-07-24] MEDS: INSULIN ASPART 300 UNIT/3 ML PEN SUBQ SCH ×4 (08:08→21:13)
[2019-07-24] MEDS: hydrALAZINE INJ 20 MG/ML VIAL IVP PRN (08:32)
[2019-07-24] MEDS ORDERED: INSULIN GLARGINE 300 UNIT/3 ML PEN SUBQ SCH (09:00)
[2019-07-24] MEDS ORDERED: POTASSIUM CHLOR 20 MEQ/100 ML 20 MEQ/100 ML BAG IV SCH (10:00)
[2019-07-24] MEDS: TAMSULOSIN 0.4 MG CAPSULE PO SCH (12:13)
[2019-07-24] MEDS: carvediloL 12.5 MG TABLET PO SCH ×2 (12:56→21:19)
[2019-07-24] MEDS: ONDANSETRON 4 MG/2 ML VIAL IVP PRN (13:00)
[2019-07-24] MEDS ORDERED: LIDOCAINE 2% URO-JET 5 ML SYRINGE UR ONE (15:22)
--- NOTE | 2019-07-24 16:29 | PROVIDER PROGRESS NOTE ---
Assessment/Plan - Problem List (1) Intractable nausea and vomiting Assessment/Plan: He is able to give details of history today since he is more comfortable: He ran out of his medications (BP meds and Reglan) for about 7 days, could not travel because of COVID and his pharmacy is 40 miles away. No vomiting for the last 8-12 hours. Will start advancing the diet, carb controlled. Remain in ICU til assured he is not going to vomit and have early DKA again. (2) Gastroparesis diabeticorum Assessment/Plan: He is on scheduled Reglan either p.o. or by IV if he is vomiting, I reviewed this with Pharmacy and wrote a [facility] nursing order as such. This has now improved his symptoms. Will advance his diet. (3) Acute kidney injury superimposed on CKD Assessment/Plan: Improved with IV fluids. Decrease IV fluids as he is increasing his p.o. intake (4) IDDM (insulin dependent diabetes mellitus) Assessment/Plan: He is off the IV insulin drip. Will resume NPH insulin at 20 units subcu twice daily, as recommended by JAI Booth. Sliding scale insulin coverage continues and a carb controlled diet will be ordered (5) Malignant hypertension Assessment/Plan: He has very wide swings in blood pressure control: Mostly was elevated when he was in distress from cyclical vomiting. Will resume all his usual p.o. meds in a stepwise fashion in order to avoid hypotension. The Clonidine patch is new, was ordered while he was vomitying and when there was no iv access, until a CVP line was inserted by Anesthesia. (6) BPH (benign prostatic hyperplasia) Assessment/Plan: He has been off Flomax for about 4 days. Today he can really tell that he has been off the Flomax because he has developed urinary retention. Straight cath was done x1 and he had 7 cc out. Later in the day he was able to urinate 700 cc more. The oral Flomax is now ordered for daily. Patient may have a neurogenic bladder with this much capacity to hold urine. (7) Hyperlipidemia Assessment/Plan: His statin medication was not yet resumed because of the vomiting (8) GERD (gastroesophageal reflux disease) Assessment/Plan: Will slowly switch from IV to p.o. meds for this (9) Urinary retention Assessment/Plan: 700 cc residual per bladder scan. A straight cath prn was ordered and he had 700 cc out. Just a few hours later he urinated 700 cc again on his own (which was painful). This patient may have a neurogenic bladder given that he has such a large bladder capacity. Will resume his home dose of Flomax today. Will obtain a U/A. (10) Noncompliance with medication regimen Assessment/Plan: The patient admitted to his RN that he has a poor diet. She suggested Meals on Wheels and he is very interested in this. Will order Social Work to have them start a Meals on Wheels program and any other assistance that they see he may need. Patient also admitted that he had run out of meds for about a week and did not pick them up at his pharmacy which was 40 miles away. The nurse recommended that he start to get [facility] mailed medications which can start in the future with his PCP. (11) Cannabis use disorder, moderate, dependence Assessment/Plan: Part of his wide blood pressure fluctuations and cyclical vomiting are probably from marijuana use; the patient does not agree with this. Ativan was ordered prn for anxiety, which was probably occurring from cannabis withdrawal. - Current Meds Current Meds: Current Medications Generic Name Dose Route Start Last Admin Trade Name Freq PRN Reason Stop Dose Admin Carvedilol 12.5 mg 07/24/19 13:00 07/24/19 12:56 Coreg PO 12.5 mg BID NATHANIEL Administration Clonidine HCl 1 patch 07/23/19 11:00 07/23/19 11:14 [id number] TOP 1 patch Q7D NATHANIEL Administration Sodium Chloride 1,000 mls @ 100 mls/hr 07/24/19 12:30 07/24/19 12:36 Normal Saline 0.9% IV 100 mls/hr .Q10H NATHANIEL Administration Insulin Aspart 3 - 11 unit 07/23/19 08:00 07/24/19 12:44 Novolog SUBQ 11 unit 0800,1200,1700,2100 NATHANIEL Administration Protocol Lorazepam 0.5 mg 07/24/19 07:52 07/24/19 10:59 Ativan Inj (Vial) IVP 0.5 mg Q2H PRN Administration Anxiety Metoclopramide HCl 10 mg 07/22/19 04:00 07/24/19 15:48 Reglan Inj IVP 10 mg Q6H NATHANIEL Administration Metoclopramide HCl 10 mg 07/23/19 12:00 07/24/19 15:54 Reglan PO Not Given ACHS NATHANIEL Ondansetron HCl 4 mg 07/21/19 22:35 07/24/19 13:00 Zofran Inj IVP 4 mg Q4HR PRN Administration Nausea / Vomiting Ondansetron HCl 4 mg 07/23/19 11:43 07/23/19 18:43 Zofran Odt TL 4 mg Q4HR PRN Administration Nausea / Vomiting Pantoprazole Sodium 40 mg 07/22/19 07:00 07/24/19 06:28 Protonix IVP 40 mg QDAC NATHANIEL Administration Prochlorperazine Edisylate 10 mg 07/21/19 22:35 07/24/19 03:19 Compazine Inj IVP 10 mg Q4HR PRN Administration Nausea / Vomiting Sodium Chloride 10 ml 07/22/19 01:00 07/24/19 09:40 Normal Saline Flush 0.9% IVP 10 ml 0100,0900,1700 NATHANIEL Administration Sodium Chloride 20 ml 07/24/19 07:45 07/24/19 07:50 Normal Saline Flush 0.9% IVP 20 ml PRN PRN Administration After Blood Draw Tamsulosin HCl 0.4 mg 07/24/19 12:00 07/24/19 12:13 Flomax PO 0.4 mg DAILY NATHANIEL Administration - Lab Result Fish Bone Diagrams: 07/24/19 05:15 07/24/19 05:15 - Additional Planning My Orders: My Active Orders 07/24/19 07:45 Sodium Chloride Flush 0.9% [Normal Saline Flush 0.9%] 20 ml IVP PRN PRN 07/24/19 12:00 Tamsulosin [Flomax] 0.4 mg PO DAILY 07/24/19 12:30 Sodium Chloride 0.9% [Normal Saline 0.9%] 1,000 ml IV 100 mls/hr 07/24/19 13:00 carvediloL [Coreg] 12.5 mg PO BID 07/24/19 15:22 Straight Catheter Insertion [RC] ONCE 07/24/19 21:00 Insulin NPH Human [Humulin N] 20 unit SUBQ BID Subjective - Subjective Patient Reports: Other (Is hungry.) Objective Vital Signs: Vital Signs - 24 hr 07/23/19 07/23/1907/22/20 17:03 17:29 18:04 Temperature Heart Rate [ 82 Brachial] Respiratory Rate Blood Pressure 186/111 H Blood Pressure 186/111 H 121/73 [Right Brachial artery] O2 Saturation 97 07/23/19 07/23/19 07/23/19 20:04 22:00 23:00 Temperature 37 C Heart Rate [ 84 92 Brachial] Respiratory 18 18 Rate Blood Pressure Blood Pressure 131/79 H 162/92 H 205/113 H [Right Brachial artery] O2 Saturation 98 99 07/23/19 07/24/19 07/24/19 23:03 00:00 00:05 Temperature 98.2 C H Heart Rate [ 102 H 84 Brachial] Respiratory 17 Rate Blood Pressure 102/63 Blood Pressure 102/63 [Right Brachial artery] O2 Saturation 100 93 07/24/19 07/24/19 07/24/19 01:20 02:00 03:00 Temperature Heart Rate [ Brachial] Respiratory Rate Blood Pressure Blood Pressure 176/95 H 129/75 186/112 H [Right Brachial artery] O2 Saturation 07/24/19 07/24/19 07/24/19 04:04 06:15 07:00 Temperature 98.4 C H Heart Rate [ Brachial] Respiratory 17 16 Rate Blood Pressure 192/101 H Blood Pressure 146/81 H 188/112 H [Right Brachial artery] O2 Saturation 98 100 07/24/19 07/24/19 07/24/19 08:00 08:32 08:45 Temperature 37.3 C Heart Rate [ Brachial] Respiratory 17 16 Rate Blood Pressure 183/100 H Blood Pressure 183/100 H 116/64 [Right Brachial artery] O2 Saturation 99 95 07/24/19 07/24/19 07/24/19 09:00 09:02 10:00 Temperature Heart Rate [ Brachial] Respiratory 16 17 Rate Blood Pressure 97/63 Blood Pressure 97/63 86/54 L [Right Brachial artery] O2 Saturation 100 99 07/24/19 07/24/19 07/24/19 10:26 11:00 12:00 Temperature 36.8 C Heart Rate [ Brachial] Respiratory 18 17 16 Rate Blood Pressure Blood Pressure 131/68 H 102/66 122/76 [Right Brachial artery] O2 Saturation 100 97 100 07/24/19 07/24/19 07/24/19 13:00 14:00 15:00 Temperature 36.8 C Heart Rate [ Brachial] Respiratory 17 17 16 Rate Blood Pressure Blood Pressure 135/80 H 137/76 H 110/66 [Right Brachial artery] O2 Saturation 100 101 H 92 07/24/19 16:00 Temperature Heart Rate [ Brachial] Respiratory 17 Rate Blood Pressure Blood Pressure 132/78 H [Right Brachial artery] O2 Saturation 96 Oxygen O2 Source Room air I&O (Last 24 Hrs): Intake and Output Totals x24h 07/22/19 07/23/19 07/24/19 23:59 23:59 23:59 Intake Total 2328.75 4576.633 3264.582 Output Total 1650 2250 1400 Balance 678.75 2326.633 1864.582 General: Alert, Oriented x3 HEENT: Mucous membr. moist/pink, Other (Appears tired) Neck: Supple Neuro: Alert, Non Focal Cardiovascular: Regular rate Respiratory: No respiratory distress Abdomen: Normal bowel sounds, Soft Extremities: No edema - Results Results: Laboratory Results WBC 14.6 x10^3/uL (4.8-10.8) H 07/24/19 05:15 RBC 4.76 10^6/uL (4.70-6.10) 07/24/19 05:15 Hgb 14.5 g/dL (14.0-18.0) 07/24/19 05:15 Hct 43.6 % (42.0-52.0) 07/24/19 05:15 MCV 91.6 fL (80.0-94.0) 07/24/19 05:15 MCH 30.5 pg (27.0-31.0) 07/24/19 05:15 MCHC 33.3 g/dL (32.0-36.0) 07/24/19 05:15 RDW 13.2 % (12.0-15.0) 07/24/19 05:15 Plt Count 224 10^3/uL (130-450) 07/24/19 05:15 MPV 9.8 fL (7.4-11.4) 07/24/19 05:15 Neut # (Auto) 12.5 10^3/uL (1.5-6.6) H 07/24/19 05:15 Lymph # (Auto) 1.1 10^3/uL (1.5-3.5) L 07/24/19 05:15 [place] # (Auto) 1.0 10^3/uL (0.0-1.0) 07/24/19 05:15 Eos # (Auto) 0.0 10^3/uL (0.0-0.7) 07/24/19 05:15 Baso # (Auto) 0.0 10^3/uL (0.0-0.1) 07/24/19 05:15 Absolute Nucleated RBC 0.00 x10^3/uL 07/24/19 05:15 Nucleated RBC % 0.0 /100WBC 07/24/19 05:15 VBG pH 7.385 (7.31-7.41) 07/23/19 12:23 VBG pCO2 35.5 mmHg (41-51) L 07/23/19 12:23 VBG pO2 51.5 mmHg (25-47) H 07/23/19 12:23 VBG HCO3 20.8 mmol/L (23-28) L 07/23/19 12:23 VBG Total CO2 21.9 mmol/L (24-29) L 07/23/19 12:23 VBG O2 Saturation 87.9 % (60-80) H 07/23/19 12:23 VBG Base Excess -3.5 mmol/L (-2 - +2) L 07/23/19 12:23 Sodium 135 mmol/L (135-145) 07/24/19 05:15 Potassium 3.2 mmol/L (3.5-5.0) L 07/24/19 05:15 Chloride 104 mmol/L (101-111) 07/24/19 05:15 Carbon Dioxide 23 mmol/L (21-32) 07/24/19 05:15 Anion Gap 8.0 (6-13) 07/24/19 05:15 BUN 38 mg/dL (6-20) H 07/24/19 05:15 Creatinine 1.3 mg/dL (0.6-1.2) H 07/24/19 05:15 Estimated GFR (MDRD) 56 (>89) L 07/24/19 05:15 Glucose 196 mg/dL (70-100) H 07/24/19 05:15 Calcium 8.6 mg/dL (8.5-10.3) 07/24/19 05:15 Phosphorus 2.1 mg/dL (2.5-4.6) L 07/24/19 05:15 Magnesium 1.8 mg/dL (1.7-2.8) 07/24/19 05:15 Total Bilirubin 1.6 mg/dL (0.2-1.0) H 07/21/19 21:05 AST 23 IU/L (10-42) 07/21/19 21:05 ALT 26 IU/L (10-60) 07/21/19 21:05 Alkaline Phosphatase 80 IU/L (42-121) 07/21/19 21:05 Troponin I High Sens 9.8 ng/L (2.3-19.7) 07/21/19 21:05 Total Protein 8.4 g/dL (6.7-8.2) H 07/21/19 21:05 Albumin 3.8 g/dL (3.2-5.5) 07/24/19 05:15 Globulin 3.4 g/dL (2.1-4.2) 07/21/19 21:05 Albumin/Globulin Ratio 1.5 (1.0-2.2) 07/21/19 21:05 Lipase 19 U/L (22-51) L 07/21/19 21:05 Urine Color YELLOW 07/23/19 12:50 Urine Clarity HAZY (CLEAR) 07/23/19 12:50 Urine pH 5.5 PH (5.0-7.5) 07/23/19 12:50 Ur Specific [place] 1.020 (1.002-1.030) 07/23/19 12:50 Urine Protein TRACE mg/dL (NEGATIVE) 07/23/19 12:50 Urine Glucose (UA) >=1000 mg/dL (NEGATIVE) H 07/23/19 12:50 Urine Ketones 40 mg/dL (NEGATIVE) H 07/23/19 12:50 Urine Occult Blood TRACE-INTA (NEGATIVE) 07/23/19 12:50 Urine Nitrite NEGATIVE (NEGATIVE) 07/23/19 12:50 Urine Bilirubin NEGATIVE (NEGATIVE) 07/23/19 12:50 Urine Urobilinogen 0.2 (NORMAL) E.U./dL (NORMAL) 07/23/19 12:50 Ur Leukocyte Esterase NEGATIVE (NEGATIVE) 07/23/19 12:50 Urine RBC 0-5 /HPF (0-5) 07/23/19 12:50 Urine WBC 0-3 /HPF (0-3) 07/23/19 12:50 Ur Squamous Epith Cells RARE Squamous (<= Few) 07/23/19 12:50 Urine Bacteria None Seen /HPF (None Seen) 07/23/19 12:50 Urine Casts 3-5 Hyaline Casts /LPF 07/23/19 12:50 Ur Microscopic Review INDICATED 07/23/19 12:50 Urine Culture Comments NOT INDICATED 07/23/19 07:50 Nasal Screen MRSA (PCR) NEGATIVE (NEGATIVE) 07/24/19 07:54 Ethyl Alcohol < 5.0 mg/dL 07/21/19 21:05 Serum Ketones NEGATIVE (NEGATIVE) 07/21/19 21:05 - Procedures Procedures: Procedures INSERTION OF INFUSION DEVICE INTO R ATRIUM, PERC APPROACH (06/09/19) ULTRASONOGRAPHY OF SUPERIOR VENA CAVA, GUIDANCE (06/09/19)
[2019-07-24 16:57] LABS: BILIRUBIN,URINE NEGATIVE (NEGATIVE); GLUCOSE, URINE (UA) 500 mg/dL (NEGATIVE); KETONES,URINE (UA) TRACE mg/dL (NEGATIVE); LEUKOCYTE ESTERASE, URINE NEGATIVE (NEGATIVE); NITRITE,URINE NEGATIVE (NEGATIVE); OCCULT BLOOD,URINE NEGATIVE (NEGATIVE); PH,URINE 5.5 PH (5.0-7.5); PROTEIN,URINE 30 mg/dL (NEGATIVE); UROBILINOGEN,URINE 0.2 (NORMAL) E.U./dL (NORMAL)
[2019-07-24 17:07] LABS: CLARITY,URINE CLEAR (CLEAR)
[2019-07-24 17:08] LABS: AMORPHOUS SEDIMENT,UR Few /LPF; BACTERIA,URINE None Seen /HPF (None Seen); RBC,URINE None Seen /HPF (0-5); SQUAMOUS EPITHELIAL CELL,UR NONE SEEN (<= Few)
[2019-07-24] MEDS ORDERED: INSULIN ASPART 300 UNIT/3 ML PEN SUBQ ONE (17:08)
[2019-07-24] MEDS ORDERED: TAMSULOSIN 0.4 MG CAPSULE PO STA (17:37)
[2019-07-24] MEDS: INSULIN NPH HUMAN 300 UNIT/3 ML VIAL SUBQ SCH (21:24)
[2019-07-24] MEDS: CALCIUM CARBONATE CHEW 500 MG TABLET PO PRN (22:57)
[2019-07-25] MEDS: INSULIN REGULAR HUMAN 100 UNIT in SODIUM CHLORIDE 0.9% 100ML 99 ML IV ONE ×3 (00:10→08:13)
[2019-07-25] MEDS: CALCIUM CARBONATE CHEW 500 MG TABLET PO PRN ×3 (00:12→16:19)
[2019-07-25] MEDS ORDERED: MORPHINE 2 MG/ML CARPUJECT IVP PRN (01:29)
[2019-07-25] MEDS ORDERED: ASPIRIN 325 MG TABLET PO STA (01:29)
[2019-07-25 01:56] LABS: HGB - HEMOGLOBIN 13.1 g/dL (14.0-18.0); MEAN CORPUSCULAR HEMOGLOBIN 32.3 pg (27.0-31.0); MEAN CORPUSCULAR HGB CONC 34.7 g/dL (32.0-36.0); MEAN CORPUSCULAR VOLUME 92.9 fL (80.0-94.0); MEAN PLATELET VOLUME 9.9 fL (7.4-11.4); RED BLOOD COUNT 4.06 10^6/uL (4.70-6.10); RED CELL DISTRIBUTION WIDTH 13.2 % (12.0-15.0); WHITE BLOOD COUNT 12.9 x10^3/uL (4.8-10.8)
[2019-07-25] MEDS ORDERED: NITROGLYCERIN 2% PASTE TOP SCH (02:00)
[2019-07-25] MEDS: HEPARIN 25000UNITS/500ML (D5W) 25,000 UNIT/500 ML BAG IV SCH ×2 (02:04→19:52)
[2019-07-25] MEDS: SODIUM CHLORIDE FLUSH 0.9% 10 ML SYRINGE IVP SCH ×3 (02:25→16:21)
[2019-07-25] MEDS: SODIUM CHLORIDE 0.9% 1,000 ML IV SCH ×2 (02:28→08:32)
[2019-07-25] MEDS ORDERED: SODIUM CHLORIDE 0.9% 500 ML IV ONE (03:14)
[2019-07-25] MEDS ORDERED: SODIUM CHLORIDE 0.9% 1,000 ML IV ONE (03:15)
[2019-07-25] MEDS ORDERED: INSULIN REGULAR HUMAN 100 UNIT/1 ML 10 ML MDV ONE (04:59)
[2019-07-25 05:05] LABS: BASOPHILS % (AUTO) 0.2 %; HGB - HEMOGLOBIN 12.4 g/dL (14.0-18.0); LYMPHOCYTES # (AUTO) 0.6 10^3/uL (1.5-3.5); LYMPHOCYTES % (AUTO) 4.7 %; MEAN CORPUSCULAR HEMOGLOBIN 31.6 pg (27.0-31.0); MEAN CORPUSCULAR HGB CONC 34.3 g/dL (32.0-36.0); MEAN CORPUSCULAR VOLUME 92.1 fL (80.0-94.0); MEAN PLATELET VOLUME 10.1 fL (7.4-11.4); MONOCYTES # (AUTO) 1.3 10^3/uL (0.0-1.0); MONOCYTES % (AUTO) 9.7 %; NEUTROPHILS # (AUTO) 11.3 10^3/uL (1.5-6.6); NEUTROPHILS % (AUTO) 84.9 %; PLT - PLATELET COUNT 213 10^3/uL (130-450); RED BLOOD COUNT 3.93 10^6/uL (4.70-6.10); WHITE BLOOD COUNT 13.3 x10^3/uL (4.8-10.8)
[2019-07-25 05:14] LABS: CALCIUM 7.5 mg/dL (8.5-10.3); CREATININE 2.4 mg/dL (0.6-1.2)
[2019-07-25 05:31] LABS: MAGNESIUM 1.9 mg/dL (1.7-2.8); PHOSPHORUS 4.2 mg/dL (2.5-4.6)
[2019-07-25] MEDS ORDERED: LIDOCAINE 2% URO-JET 5 ML SYRINGE UR ONE (06:02)
--- NOTE | 2019-07-25 06:20 | DISCHARGE SUMMARY ---
Discharge Summary Admit Date: 07/21/19 Discharge Date: 07/25/19 Discharging Provider: Grisel Shoemaker Primary Care Provider: Lena Kirkland Condition at Discharge: Serious - DIAGNOSES Admission Diagnoses: 1 malignant hypertension 2 intractable nausea and vomiting 3 gastroparesis diabeticorum 4 diabetes 5 hyperlipidemia 6 BPH 7 GERD Discharge Diagnoses with Status of Each Condition: 1 NSTEMI: Acute. On going 2 malignant hypertension: Imporoved/ Resolved 3 intractable nausea and vomiting: Improved 4 gastroparesis diabeticorum: Chronic 5 diabetes: Chronic 6 hyperlipidemia: Chronic 7 BPH: Chronic 8 GERD:Chronic - HPI History of Present Illness: Patient is a 63-year-old male with history of diabetes mellitus and gastroparesis as a result, who presented to the ED with complaint of intractable nausea and vomiting. It appears that it has been going on for the past 3 to 4 days intermittently. In the ED today he received 3 doses of IV anti-emetics with no improvement in his symptoms. As a result of the nausea and vomiting he has not been able to keep his home medications down. Consequently his blood pressure was as high as 240/160 in the ED. He was also given 2 doses of IV antihypertensives with no significant improvement in his blood pressure. As a result he was presented for admission. At bedside he appears more comfortable. He denies chest pain, dyspnea, abdominal pain, fever or chills. - HOSPITAL COURSE Hospital Course: Patient was treated with alternating labetalol and hydralazine IV as needed for his blood pressure. His systolic blood pressure was frequently in the 180 to 200 range for most of the first 24 hours. It seemed to be significantly elevated around times of active vomiting due to his gastroparesis. On the third day of 50 clonidine patch was added to his an tihypertensive regimen. His systolic blood pressure improved and stayed in the 110's to 130's range His intractable nausea and vomiting was treated with alternating Zofran, Compazine and Ativan. His gastroparesis was treated with scheduled Reglan 4 times daily. His symptoms slowly improved over the days such that his oral home medications could be resumed on the third day (07/24/2019). The patient is very labile type I diabetic. On the day of admission his blood glucose was 425. This was initially treated with his home dose Lantus of 35 units subcu twice daily and a high dose sliding scale insulin. His blood glucose level improved but became elevated again the following day 07/23/2019 to 462 with an associated anion gap of 16. As a result he was transfered to the ICU and started on an insulin drip. The drip was discontinued on 07/24/2019 after his blood glucose improved however his blood glucose was as high as 670 later in the day so the insulin drip was resumed. On the day of admission (07/21/2019) his creatinine was 0.9 with a GFR of 85. His renal function has steadily worsened over the past 4 days and today his creatinine is currently 2.4 with a GFR of 27. The patient has BPH and would normally be on tamsulosin however because of his nausea and vomiting and being unable to keep oral medications down he has not been taking this. Bladder scan done in the afternoon on July 24, 2019 showed a very distended bladder. On 2 separate occasions he was straight cath and 700 m ils of urine was collected at each time. He had another bladder scan done in the morning of July 25, 2019 which showed about 800 mils of urine in the bladder. Consequently he was straight cathetered again. The suspicion is that the worsening renal function is likely related to the urinary retention. In the evening of July 24, 2019 the patient complained of heartburn. He had already been placed on Protonix 40 mg IV daily. He was given Tums with no relief in his symptoms. As a result of persistent heartburn in a diabetic a cardiac work up Was initiated. This included a 12-lead EKG, BNP and troponin I level. It was an unremarkable twelve-lead EKG which showed sinus rhythm with borderline short NC intervals. However his initial troponin I was 233.9. A repeat Troponin I 4 hours later was 412.5. His BNP was 113. As a result the patient was started on a heparin drip per cardiac protocol. He also received a full dose aspirin and 2 mg of morphine IV. Nitroglycerin could not be administered because the patient systolic blood pressure dropped to 90 and then to 70 after administration of morphine. He was given 1 L bolus of normal saline which initially improved his systolic blood pressure to 116 but then a slight drop to 96. He is being transferred to another facility for a higher level of care for a cardiology consult and possible cardiac cath. - ALLERGIES Allergies/Adverse Reactions: Allergies Allergy/AdvReac Type Severity Reaction Status Date / Time No Known Drug Allergies Allergy Verified 07/21/19 21:08 - MEDICATIONS Home Medications: Ambulatory Orders Medication Instructions Recorded Confirmed Atorvastatin Calcium 40 mg PO QPM 06/09/19 07/22/19 Insulin Regular Human [NovoLIN R] 2 - 10 unit SUBQ TIDWM 06/09/19 07/22/19 Omeprazole 20 mg PO QDAC 06/09/19 07/22/19 Tamsulosin [Flomax] 0.4 mg PO DAILY 06/09/19 07/22/19 Insulin NPH Human [Humulin N] 35 unit SUBQ BID 06/10/19 07/22/19 Carvedilol [Coreg] 25 mg PO BID #60 tablet 06/14/19 07/22/19 Losartan [Cozaar] 50 mg PO DAILY 07/22/19 07/22/19 Metoclopramide [Reglan] 10 mg PO Q6H PRN 07/22/19 07/22/19 - PHYSICAL EXAM AT DISCHARGE General Appearance: positive: No acute distress, Alert, Other (appears tired) Eyes Bilateral: positive: PERRL, EOMI ENT: positive: Pharynx nml, Dry mucous membranes Neck: positive: No JVD, Trachea midline Respiratory: positive: Chest non-tender, No respiratory distress, Breath sounds nml. negative: Wheezes, Rales, Rhonchi Cardiovascular: positive: Regular rate & rhythm, No murmur Abdomen: positive: Non-tender, No distention, Abnml bowel sounds (decreased bowel sounds). negative: Guarding, Rebound Back: positive: Nml inspection Skin: positive: Color nml, No rash, Warm, Dry, Other (Callous on lateral aspect of left foot) Extremities: positive: Non-tender, Full ROM, Nml appearance, No pedal edema Neurologic/Psychiatric: positive: Oriented x3, CN's nml (2-12), Motor nml, Mood/affect nml - LABS Result Diagrams: 07/25/19 04:25 07/25/19 04:25 - DIAGNOSTIC IMAGING Diagnostic Imaging Results Comments: 2D echo ordered on 07/25/2019: pending - FOLLOW UP Follow Up: With PCP in within 7 days of discharge from [facility] in [place], [place]. - TIME SPENT Time Spent in Discharge (Minutes): 35
[2019-07-25] MEDS: METOCLOPRAMIDE 10 MG TABLET PO SCH ×4 (06:22→20:25)
[2019-07-25] MEDS: LORazepam 2 MG/ML VIAL IVP PRN ×2 (06:22→19:29)
[2019-07-25] MEDS: METOCLOPRAMIDE 10 MG/2 ML VIAL IVP SCH ×4 (06:44→20:45)
[2019-07-25] MEDS: PANTOPRAZOLE 40 MG VIAL IVP SCH (06:45)
[2019-07-25] MEDS: DEXTROSE 5%-0.45% NACL 1,000 ML IV SCH ×3 (08:11→16:20)
[2019-07-25] MEDS: TAMSULOSIN 0.4 MG CAPSULE PO SCH (08:27)
[2019-07-25] MEDS: ONDANSETRON ODT 4 MG TABLET TL PRN (08:28)
[2019-07-25] MEDS: INSULIN ASPART 300 UNIT/3 ML PEN SUBQ SCH ×4 (08:28→20:35)
[2019-07-25] MEDS: INSULIN NPH HUMAN 300 UNIT/3 ML VIAL SUBQ SCH ×3 (08:29→20:37)
[2019-07-25] MEDS: carvediloL 12.5 MG TABLET PO SCH ×2 (08:32→20:25)
[2019-07-25 10:10] LABS: HGB - HEMOGLOBIN 13.1 g/dL (14.0-18.0); MEAN CORPUSCULAR HEMOGLOBIN 31.8 pg (27.0-31.0); MEAN CORPUSCULAR HGB CONC 35.2 g/dL (32.0-36.0); MEAN CORPUSCULAR VOLUME 90.3 fL (80.0-94.0); MEAN PLATELET VOLUME 9.6 fL (7.4-11.4); RED BLOOD COUNT 4.12 10^6/uL (4.70-6.10); RED CELL DISTRIBUTION WIDTH 13.1 % (12.0-15.0); WHITE BLOOD COUNT 15.5 x10^3/uL (4.8-10.8)
--- NOTE | 2019-07-25 11:32 | PROVIDER PROGRESS NOTE ---
"Subjective - Prog Note Date Prog Note Date: 07/25/19 - Subjective Subjective: Overnight, the patient complained of heartburn that was not relieved with Protonix and Tums. An EKG was obtained which was unremarkable. A troponin was checked and is elevated in the 200s. This was trended and continued to rise. He was started on heparin and given aspirin. His blood pressure is on the lower side and so nitroglycerin was held. This morning, he reports no nausea or vomiting. He is tolerating a clear liquid diet. He reports no chest pain or dyspnea. Still has occasional heartburn but this was alleviated with Tums. He has had difficulty urinating and has required to be straight catheterized multiple times now. Current Medications - Current Medications Current Medications: Active Medications Aspirin (Ecotrin) 81 mg PO DAILY [facility] Atorvastatin Calcium (Lipitor) 80 mg PO QPM [facility] Calcium Carbonate/Glycine (Tums) 500 mg PO TID PRN PRN Reason: Heartburn Last Admin: 07/25/19 11:22 Dose: 500 mg Carvedilol (Coreg) 12.5 mg PO BID [facility] Last Admin: 07/25/19 08:32 Dose: 12.5 mg Heparin Sodium (Porcine) () 2,750 unit 25 unit/kg (2750 unit) IVP Q6H PRN PRN Reason: ANTI-XA < 0.2 Sodium Chloride (Normal Saline 0.9%) 1,000 mls @ 100 mls/hr IV .Q10H [facility] Last Admin: 07/25/19 08:32 Dose: Not Given Insulin Human Regular 100 unit (/ Sodium Chloride) 100 mls @ 1 mls/hr IV .Q72H [facility]; Protocol Stop: 07/27/19 23:15 Last Titration: 07/25/19 11:22 Dose: 0 unit/hr, 0 mls/hr Dextrose/Sodium Chloride (D5.45ns) 1,000 mls @ 125 mls/hr IV .Q8H [facility] Last Admin: 07/25/19 08:11 Dose: 125 mls/hr Heparin Sodium/Dextrose () 25,000 unit in 500 mls @ 26.4 mls/hr IV .[id number] [facility]; Protocol Last Admin: 07/25/19 02:04 Dose: 12 unit/kg/hr, 26.4 mls/hr Insulin Aspart (Novolog) 3 - 11 unit SUBQ 0800,1200,1700,2100 [facility]; Protocol Last Admin: 07/25/19 08:31 Dose: Not Given Insulin Human NPH (Humulin N) 20 unit SUBQ BID [facility] Last Admin: 07/25/19 08:30 Dose: Not Given Lorazepam (Ativan Inj (Vial)) 0.5 mg IVP Q2H PRN PRN Reason: Anxiety Last Admin: 07/25/19 06:22 Dose: 0.5 mg Metoclopramide HCl (Reglan Inj) 10 mg IVP Q6H [facility] Last Admin: 07/25/19 10:55 Dose: Not Given Metoclopramide HCl (Reglan) 10 mg PO ACHS [facility] Last Admin: 07/25/19 10:55 Dose: Not Given Morphine Sulfate (Morphine (Carpuject)) 2 mg IVP Q4HR PRN PRN Reason: PAIN Last Admin: 07/25/19 01:52 Dose: 2 mg Ondansetron HCl (Zofran Inj) 4 mg IVP Q4HR PRN PRN Reason: Nausea / Vomiting Last Admin: 07/24/19 13:00 Dose: 4 mg Ondansetron HCl (Zofran Odt) 4 mg TL Q4HR PRN PRN Reason: Nausea / Vomiting Last Admin: 07/25/19 08:28 Dose: 4 mg Pantoprazole Sodium (Protonix) 40 mg IVP QDAC [facility] Last Admin: 07/25/19 06:45 Dose: 40 mg Prochlorperazine Edisylate (Compazine Inj) 10 mg IVP Q4HR PRN PRN Reason: Nausea / Vomiting Last Admin: 07/24/19 03:19 Dose: 10 mg Sodium Chloride (Normal Saline Flush 0.9%) 10 ml IVP PRN PRN PRN Reason: NEEDED PER PROVIDER ORDERS Sodium Chloride (Normal Saline Flush 0.9%) 10 ml IVP 0100,0900,1700 [facility] Last Admin: 07/25/19 08:27 Dose: 10 ml Sodium Chloride (Normal Saline Flush 0.9%) 20 ml IVP PRN PRN PRN Reason: After Blood Draw Last Admin: 07/24/19 07:50 Dose: 20 ml Tamsulosin HCl (Flomax) 0.4 mg PO DAILY [facility] Last Admin: 04/28/20 08:27 Dose: 0.4 mg Atorvastatin Calcium 40 mg PO QPM 06/09/19 Insulin Regular Human [NovoLIN R] 2 - 10 unit SUBQ TIDWM 06/09/19 Omeprazole 20 mg PO QDAC 06/09/19 Tamsulosin [Flomax] 0.4 mg PO DAILY 06/09/19 Insulin NPH Human [Humulin N] 35 unit SUBQ BID 06/10/19 Losartan [Cozaar] 50 mg PO DAILY 07/22/19 Metoclopramide [Reglan] 10 mg PO Q6H PRN 07/22/19 Objective - Vital Signs/Intake & Output Reviewed Vital Signs: Yes Vital Signs: Vital Signs Temp Pulse Resp BP Pulse Ox 07/25/19 11:00 82 20 138/80 H 96 07/25/19 10:00 121/75 07/25/19 09:00 96 151/81 H 95 07/25/19 08:00 36.8 C 95 16 137/81 H 98 Intake & Output: Intake & Output 07/22/19 07/23/19 07/24/19 07/25/19 23:59 23:59 23:59 23:59 Intake Total 2328.75 4576.633 5454.582 2764.901 Output Total 1650 2250 2800 900 Balance 678.75 2326.633 2654.582 1864.901 - Objective General Appearance: positive: No acute distress, Alert Eyes Bilateral: positive: Normal inspection ENT: positive: ENT inspection nml Neck: positive: Nml inspection Respiratory: positive: No respiratory distress. negative: Wheezes, Rales, Rhonchi Cardiovascular: positive: Regular rate & rhythm, No murmur. negative: Tachycardia, Systolic murmur Abdomen: positive: Non-tender, No distention. negative: Tenderness, Guarding, Rebound Extremities: positive: Full ROM, Pedal edema (Trace pitting edema in the bilateral lower extremities.) Neurologic/Psychiatric: positive: Oriented x3, Depressed mood/affect (Flat affect.). negative: Disoriented to person, Disoriented to place, Disoriented to time - Lab Results Fish Bones: 07/25/19 10:00 07/25/19 10:00 Other Labs: Lab Results x24hrs 04/28/20 04/28/20 04/28/20 Range/Units 10:00 10:00 08:36 WBC 15.5 H (4.8-10.8) x10^3/uL RBC 4.12 L (4.70-6.10) 10^6/uL Hgb 13.1 L (14.0-18.0) g/dL Hct 37.2 L (42.0-52.0) % MCV 90.3 (80.0-94.0) fL MCH 31.8 H (27.0-31.0) pg MCHC 35.2 (32.0-36.0) g/dL RDW 13.1 (12.0-15.0) % Plt Count 209 (130-450) 10^3/uL MPV 9.6 (7.4-11.4) fL Neut # (Auto) (1.5-6.6) 10^3/uL Lymph # (Auto) (1.5-3.5) 10^3/uL [place] # (Auto) (0.0-1.0) 10^3/uL Eos # (Auto) (0.0-0.7) 10^3/uL Baso # (Auto) (0.0-0.1) 10^3/uL Absolute Nucleated RBC x10^3/uL Nucleated RBC % /100WBC Anti-Xa Level 0.4 ( - 0.7) U/mL Sodium (135-145) mmol/L Potassium (3.5-5.0) mmol/L Chloride (101-111) mmol/L Carbon Dioxide (21-32) mmol/L Anion Gap (6-13) BUN (6-20) mg/dL Creatinine (0.6-1.2) mg/dL Estimated GFR (MDRD) (>89) Glucose (70-100) mg/dL Calcium (8.5-10.3) mg/dL Phosphorus (2.5-4.6) mg/dL Magnesium (1.7-2.8) mg/dL Troponin I High Sens 1126.7 H* (2.3-19.7) ng/L B-Natriuretic Peptide (5-100) pg/mL Albumin (3.2-5.5) g/dL Urine Color Urine Clarity (CLEAR) Urine pH (5.0-7.5) PH Ur Specific [place] (1.002-1.030) Urine Protein (NEGATIVE) mg/dL Urine Glucose (UA) (NEGATIVE) mg/dL Urine Ketones (NEGATIVE) mg/dL Urine Occult Blood (NEGATIVE) Urine Nitrite (NEGATIVE) Urine Bilirubin (NEGATIVE) Urine Urobilinogen (NORMAL) E.U./dL Ur Leukocyte Esterase (NEGATIVE) Urine RBC (0-5) /HPF Urine WBC (0-3) /HPF Ur Squamous Epith Cells (<= Few) Amorphous Sediment /LPF Urine Bacteria (None Seen) /HPF Urine Culture Comments 07/25/19 07/25/19 07/25/19 Range/Units 04:25 04:25 04:25 WBC (4.8-10.8) x10^3/uL RBC (4.70-6.10) 10^6/uL Hgb (14.0-18.0) g/dL Hct (42.0-52.0) % MCV (80.0-94.0) fL MCH (27.0-31.0) pg MCHC (32.0-36.0) g/dL RDW (12.0-15.0) % Plt Count (130-450) 10^3/uL MPV (7.4-11.4) fL Neut # (Auto) (1.5-6.6) 10^3/uL Lymph # (Auto) (1.5-3.5) 10^3/uL [place] # (Auto) (0.0-1.0) 10^3/uL Eos # (Auto) (0.0-0.7) 10^3/uL Baso # (Auto) (0.0-0.1) 10^3/uL Absolute Nucleated RBC x10^3/uL Nucleated RBC % /100WBC Anti-Xa Level ( - 0.7) U/mL Sodium 129 L (135-145) mmol/L Potassium 3.7 (3.5-5.0) mmol/L Chloride 101 (101-111) mmol/L Carbon Dioxide 17 L (21-32) mmol/L Anion Gap 11.0 (6-13) BUN 69 H (6-20) mg/dL Creatinine 2.4 H (0.6-1.2) mg/dL Estimated GFR (MDRD) 27 L (>89) Glucose 465 H (70-100) mg/dL Calcium 7.5 L (8.5-10.3) mg/dL Phosphorus 4.2 (2.5-4.6) mg/dL Magnesium 1.9 (1.7-2.8) mg/dL Troponin I High Sens 412.5 H* (2.3-19.7) ng/L B-Natriuretic Peptide (5-100) pg/mL Albumin 3.0 L (3.2-5.5) g/dL Urine Color Urine Clarity (CLEAR) Urine pH (5.0-7.5) PH Ur Specific [place] (1.002-1.030) Urine Protein (NEGATIVE) mg/dL Urine Glucose (UA) (NEGATIVE) mg/dL Urine Ketones (NEGATIVE) mg/dL Urine Occult Blood (NEGATIVE) Urine Nitrite (NEGATIVE) Urine Bilirubin (NEGATIVE) Urine Urobilinogen (NORMAL) E.U./dL Ur Leukocyte Esterase (NEGATIVE) Urine RBC (0-5) /HPF Urine WBC (0-3) /HPF Ur Squamous Epith Cells (<= Few) Amorphous Sediment /LPF Urine Bacteria (None Seen) /HPF Urine Culture Comments 07/25/19 07/25/19 07/25/19 Range/Units 04:25 01:50 01:50 WBC 13.3 H 12.9 H (4.8-10.8) x10^3/uL RBC 3.93 L 4.06 L (4.70-6.10) 10^6/uL Hgb 12.4 L 13.1 L (14.0-18.0) g/dL Hct 36.2 L 37.7 L (42.0-52.0) % MCV 92.1 92.9 (80.0-94.0) fL MCH 31.6 H 32.3 H (27.0-31.0) pg MCHC 34.3 34.7 (32.0-36.0) g/dL RDW 13.0 13.2 (12.0-15.0) % Plt Count 213 211 (130-450) 10^3/uL MPV 10.1 9.9 (7.4-11.4) fL Neut # (Auto) 11.3 H (1.5-6.6) 10^3/uL Lymph # (Auto) 0.6 L (1.5-3.5) 10^3/uL [place] # (Auto) 1.3 H (0.0-1.0) 10^3/uL Eos # (Auto) 0.0 (0.0-0.7) 10^3/uL Baso # (Auto) 0.0 (0.0-0.1) 10^3/uL Absolute Nucleated RBC 0.00 x10^3/uL Nucleated RBC % 0.0 /100WBC Anti-Xa Level ( - 0.7) U/mL Sodium (135-145) mmol/L Potassium (3.5-5.0) mmol/L Chloride (101-111) mmol/L Carbon Dioxide (21-32) mmol/L Anion Gap (6-13) BUN (6-20) mg/dL Creatinine (0.6-1.2) mg/dL Estimated GFR (MDRD) (>89) Glucose (70-100) mg/dL Calcium (8.5-10.3) mg/dL Phosphorus (2.5-4.6) mg/dL Magnesium (1.7-2.8) mg/dL Troponin I High Sens (2.3-19.7) ng/L B-Natriuretic Peptide 113 H (5-100) pg/mL Albumin (3.2-5.5) g/dL Urine Color Urine Clarity (CLEAR) Urine pH (5.0-7.5) PH Ur Specific [place] (1.002-1.030) Urine Protein (NEGATIVE) mg/dL Urine Glucose (UA) (NEGATIVE) mg/dL Urine Ketones (NEGATIVE) mg/dL Urine Occult Blood (NEGATIVE) Urine Nitrite (NEGATIVE) Urine Bilirubin (NEGATIVE) Urine Urobilinogen (NORMAL) E.U./dL Ur Leukocyte Esterase (NEGATIVE) Urine RBC (0-5) /HPF Urine WBC (0-3) /HPF Ur Squamous Epith Cells (<= Few) Amorphous Sediment /LPF Urine Bacteria (None Seen) /HPF Urine Culture Comments 07/25/19 07/25/19 07/25/19 Range/Units 01:50 00:47 00:41 WBC (4.8-10.8) x10^3/uL RBC (4.70-6.10) 10^6/uL Hgb (14.0-18.0) g/dL Hct (42.0-52.0) % MCV (80.0-94.0) fL MCH (27.0-31.0) pg MCHC (32.0-36.0) g/dL RDW (12.0-15.0) % Plt Count (130-450) 10^3/uL MPV (7.4-11.4) fL Neut # (Auto) (1.5-6.6) 10^3/uL Lymph # (Auto) (1.5-3.5) 10^3/uL [place] # (Auto) (0.0-1.0) 10^3/uL Eos # (Auto) (0.0-0.7) 10^3/uL Baso # (Auto) (0.0-0.1) 10^3/uL Absolute Nucleated RBC x10^3/uL Nucleated RBC % /100WBC Anti-Xa Level 0.0 ( - 0.7) U/mL Sodium (135-145) mmol/L Potassium (3.5-5.0) mmol/L Chloride (101-111) mmol/L Carbon Dioxide (21-32) mmol/L Anion Gap (6-13) BUN (6-20) mg/dL Creatinine (0.6-1.2) mg/dL Estimated GFR (MDRD) (>89) Glucose 670 H* (70-100) mg/dL Calcium (8.5-10.3) mg/dL Phosphorus (2.5-4.6) mg/dL Magnesium (1.7-2.8) mg/dL Troponin I High Sens 233.9 H* (2.3-19.7) ng/L B-Natriuretic Peptide (5-100) pg/mL Albumin (3.2-5.5) g/dL Urine Color Urine Clarity (CLEAR) Urine pH (5.0-7.5) PH Ur Specific [place] (1.002-1.030) Urine Protein (NEGATIVE) mg/dL Urine Glucose (UA) (NEGATIVE) mg/dL Urine Ketones (NEGATIVE) mg/dL Urine Occult Blood (NEGATIVE) Urine Nitrite (NEGATIVE) Urine Bilirubin (NEGATIVE) Urine Urobilinogen (NORMAL) E.U./dL Ur Leukocyte Esterase (NEGATIVE) Urine RBC (0-5) /HPF Urine WBC (0-3) /HPF Ur Squamous Epith Cells (<= Few) Amorphous Sediment /LPF Urine Bacteria (None Seen) /HPF Urine Culture Comments 07/24/19 Range/Units 15:40 WBC (4.8-10.8) x10^3/uL RBC (4.70-6.10) 10^6/uL Hgb (14.0-18.0) g/dL Hct (42.0-52.0) % MCV (80.0-94.0) fL MCH (27.0-31.0) pg MCHC (32.0-36.0) g/dL RDW (12.0-15.0) % Plt Count (130-450) 10^3/uL MPV (7.4-11.4) fL Neut # (Auto) (1.5-6.6) 10^3/uL Lymph # (Auto) (1.5-3.5) 10^3/uL [place] # (Auto) (0.0-1.0) 10^3/uL Eos # (Auto) (0.0-0.7) 10^3/uL Baso # (Auto) (0.0-0.1) 10^3/uL Absolute Nucleated RBC x10^3/uL Nucleated RBC % /100WBC Anti-Xa Level ( - 0.7) U/mL Sodium (135-145) mmol/L Potassium (3.5-5.0) mmol/L Chloride (101-111) mmol/L Carbon Dioxide (21-32) mmol/L Anion Gap (6-13) BUN (6-20) mg/dL Creatinine (0.6-1.2) mg/dL Estimated GFR (MDRD) (>89) Glucose (70-100) mg/dL Calcium (8.5-10.3) mg/dL Phosphorus (2.5-4.6) mg/dL Magnesium (1.7-2.8) mg/dL Troponin I High Sens (2.3-19.7) ng/L B-Natriuretic Peptide (5-100) pg/mL Albumin (3.2-5.5) g/dL Urine Color YELLOW Urine Clarity CLEAR (CLEAR) Urine pH 5.5 (5.0-7.5) PH Ur Specific [place] 1.025 (1.002-1.030) Urine Protein 30 H (NEGATIVE) mg/dL Urine Glucose (UA) 500 H (NEGATIVE) mg/dL Urine Ketones TRACE (NEGATIVE) mg/dL Urine Occult Blood NEGATIVE (NEGATIVE) Urine Nitrite NEGATIVE (NEGATIVE) Urine Bilirubin NEGATIVE (NEGATIVE) Urine Urobilinogen 0.2 (NORMAL) (NORMAL) E.U./dL Ur Leukocyte Esterase NEGATIVE (NEGATIVE) Urine RBC None Seen (0-5) /HPF Urine WBC 0-3 (0-3) /HPF Ur Squamous Epith Cells NONE SEEN (<= Few) Amorphous Sediment Few /LPF Urine Bacteria None Seen (None Seen) /HPF Urine Culture Comments NOT INDICATED Assessment/Plan - Problem List (1) NSTEMI (non-ST elevated myocardial infarction) Impression: Atypical chest pain and troponin is now elevated at greater than 1100. His EKG shows nonspecific T wave changes in leads V5 to V6. He was started on heparin and given aspirin. I did discuss this with cardiology at [facility] who felt that his EKGs are reassuring after they reviewed them and they recommended continuing with medical management at the moment. They would take him in transfer if he would develop worsening chest pain or symptoms that are not controlled with just medical management. Dr. Dai is a sld inclusion teacher I spoke with and he is available until of this week. I did discuss with the patient who is agreeable to this plan as he would prefer to stay here unless an angiogram was absolutely warranted. We will continue him on carvedilol, aspirin, Lipitor 80 mg. He will be treated with heparin infusion for 48 hours. We will repeat an echocardiogram given this new cardiac event to evaluate for any wall motion abnormalities. (2) IDDM (insulin dependent diabetes mellitus) Impression: Type 1 diabetes mellitus and is on insulin at home. Overnight blood sugar increased to over 600. Fortunately, he was not in diabetic ketoacidosis. He was transferred intensive care unit started on insulin infusion. We will continue then insulin infusion until he is able to tolerate an oral diet consistently. We will place him on a clear liquid diet for the time being and will help condition him to subcutaneous insulin tomorrow. (3) Acute kidney injury Impression: |His creatinine is elevated at 2.4 this morning. Recheck a few hours later was down to 2.0. His baseline around 1-1.3. 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 Suspect his acute kidney injury secondary to the urinary retention as he has had required catheterization multiple times with greater than 800 cc of urine each time. Continue to monitor his renal function. Avoid nephrotoxic medications. Bladder scan and straight cath as needed. (4) Urinary retention Impression: Is a history of BPH for which he is on Flomax but he was on taking this prior to admission. He now has had multiple episodes of acute urinary tension with more than 800 mL of urine. He is now agreeable to Zarate catheter if he continues to retain. We will resume his Flomax. Bladder scan as needed. (5) Hypertension Impression: He was actually hypertensive overnight with systolics in the 90s. His blood pressure is now in the 130s systolic. We will discontinue his clonidine patch and continue with oral carvedilol given the NSTEMI. We will hold off on KATHLEEN inhibitor or intense receptor norberto given the acute kidney injury. (6) Gastroparesis diabeticorum Impression: Nausea and vomiting have improved and he is tolerating a clear liquid diet. We will continue with scheduled Reglan and Zofran as needed (7) BPH (benign prostatic hyperplasia) Impression: This is chronic but is causing acute urinary retention secondary to missed doses of Flomax. This has been resumed."
[2019-07-25 12:58] LABS: CALCIUM 7.8 mg/dL (8.5-10.3)
[2019-07-25] MEDS: ATORVASTATIN 40 MG TABLET PO SCH (20:23)
[2019-07-26] MEDS: DEXTROSE 5%-0.45% NACL 1,000 ML IV SCH (01:06)
[2019-07-26] MEDS: SODIUM CHLORIDE FLUSH 0.9% 10 ML SYRINGE IVP SCH ×4 (01:06→20:26)
[2019-07-26] MEDS: LORazepam 2 MG/ML VIAL IVP PRN (01:29)
[2019-07-26 05:01] LABS: BASOPHILS % (AUTO) 0.1 %; EOSINOPHILS % (AUTO) 0.2 %; HGB - HEMOGLOBIN 12.7 g/dL (14.0-18.0); LYMPHOCYTES # (AUTO) 0.8 10^3/uL (1.5-3.5); MEAN CORPUSCULAR HEMOGLOBIN 30.8 pg (27.0-31.0); MEAN CORPUSCULAR VOLUME 90.8 fL (80.0-94.0); MONOCYTES # (AUTO) 0.8 10^3/uL (0.0-1.0); MONOCYTES % (AUTO) 9.5 %; NEUTROPHILS # (AUTO) 6.7 10^3/uL (1.5-6.6); NEUTROPHILS % (AUTO) 79.8 %; PLT - PLATELET COUNT 175 10^3/uL (130-450); RED BLOOD COUNT 4.12 10^6/uL (4.70-6.10); WHITE BLOOD COUNT 8.4 x10^3/uL (4.8-10.8)
[2019-07-26 05:09] LABS: CALCIUM 7.8 mg/dL (8.5-10.3); CREATININE 1.3 mg/dL (0.6-1.2); MAGNESIUM 1.8 mg/dL (1.7-2.8)
[2019-07-26] MEDS: hydrALAZINE INJ 20 MG/ML VIAL IVP PRN ×2 (05:29→17:08)
[2019-07-26] MEDS: INSULIN ASPART 300 UNIT/3 ML PEN SUBQ SCH ×4 (05:29→20:22)
[2019-07-26] MEDS: METOCLOPRAMIDE 10 MG/2 ML VIAL IVP SCH (05:36)
[2019-07-26] MEDS: METOCLOPRAMIDE 10 MG TABLET PO SCH ×4 (06:15→20:24)
[2019-07-26] MEDS: PANTOPRAZOLE 40 MG VIAL IVP SCH (06:15)
[2019-07-26] MEDS: carvediloL 12.5 MG TABLET PO SCH ×2 (06:16→20:23)
--- NOTE | 2019-07-26 08:06 | PROVIDER PROGRESS NOTE ---
Subjective - Prog Note Date Prog Note Date: 07/26/19 - Subjective Subjective: He is now off of the insulin drip. He reports no chest pain or dyspnea. Also denies nausea and vomiting. Reports a poor appetite. Has not had a bowel movement since hospitalization. Current Medications - Current Medications Current Medications: Active Medications Aspirin (Ecotrin) 81 mg PO DAILY [facility] Last Admin: 07/26/19 08:24 Dose: 81 mg Atorvastatin Calcium (Lipitor) 80 mg PO QPM [facility] Last Admin: 07/25/19 20:23 Dose: 80 mg Calcium Carbonate/Glycine (Tums) 500 mg PO TID PRN PRN Reason: Heartburn Last Admin: 07/25/19 16:19 Dose: 500 mg Carvedilol (Coreg) 25 mg PO BID [facility] Last Admin: 07/26/19 06:16 Dose: 25 mg Heparin Sodium (Porcine) () 2,750 unit 25 unit/kg (2750 unit) IVP Q6H PRN PRN Reason: ANTI-XA < 0.2 Hydralazine HCl (Apresoline Inj) 10 mg IVP Q6H PRN PRN Reason: SBP > 160 or DBP > 100 Last Admin: 07/26/19 05:29 Dose: 10 mg Heparin Sodium/Dextrose () 25,000 unit in 500 mls @ 26.4 mls/hr IV .[id number] [facility]; Protocol Last Titration: 07/26/19 08:15 Dose: 12 unit/kg/hr, 26.4 mls/hr Insulin Aspart (Novolog) 3 - 11 unit SUBQ 0800,1200,1700,2100 [facility]; Protocol Last Admin: 07/26/19 05:29 Dose: 11 unit Insulin Human NPH (Humulin N) 30 unit SUBQ BID [facility] Last Admin: 07/26/19 08:26 Dose: 30 unit Losartan Potassium (Cozaar) 50 mg PO DAILY [facility] Last Admin: 07/26/19 08:24 Dose: 50 mg Metoclopramide HCl (Reglan) 10 mg PO ACHS [facility] Last Admin: 07/26/19 06:15 Dose: 10 mg Morphine Sulfate (Morphine (Carpuject)) 2 mg IVP Q4HR PRN PRN Reason: PAIN Last Admin: 07/25/19 01:52 Dose: 2 mg Ondansetron HCl (Zofran Inj) 4 mg IVP Q4HR PRN PRN Reason: Nausea / Vomiting Last Admin: 07/24/19 13:00 Dose: 4 mg Ondansetron HCl (Zofran Odt) 4 mg TL Q4HR PRN PRN Reason: Nausea / Vomiting Last Admin: 07/25/19 08:28 Dose: 4 mg Pantoprazole Sodium (Protonix) 40 mg IVP QDAC [facility] Last Admin: 07/26/19 06:15 Dose: 40 mg Polyethylene Glycol (Miralax) 17 gm PO DAILY [facility] Last Admin: 07/26/19 08:24 Dose: 17 gm Prochlorperazine Edisylate (Compazine Inj) 10 mg IVP Q4HR PRN PRN Reason: Nausea / Vomiting Last Admin: 07/24/19 03:19 Dose: 10 mg Sodium Chloride (Normal Saline Flush 0.9%) 10 ml IVP PRN PRN PRN Reason: NEEDED PER PROVIDER ORDERS Sodium Chloride (Normal Saline Flush 0.9%) 10 ml IVP 0100,0900,1700 [facility] Last Admin: 07/26/19 08:25 Dose: 10 ml Sodium Chloride (Normal Saline Flush 0.9%) 20 ml IVP PRN PRN PRN Reason: After Blood Draw Last Admin: 07/24/19 07:50 Dose: 20 ml Tamsulosin HCl (Flomax) 0.4 mg PO DAILY [facility] Last Admin: 07/26/19 08:24 Dose: 0.4 mg Atorvastatin Calcium 40 mg PO QPM 06/09/19 Insulin Regular Human [NovoLIN R] 2 - 10 unit SUBQ TIDWM 06/09/19 Omeprazole 20 mg PO QDAC 06/09/19 Tamsulosin [Flomax] 0.4 mg PO DAILY 06/09/19 Insulin NPH Human [Humulin N] 35 unit SUBQ BID 06/10/19 Losartan [Cozaar] 50 mg PO DAILY 07/22/19 Metoclopramide [Reglan] 10 mg PO Q6H PRN 07/22/19 Objective - Vital Signs/Intake & Output Reviewed Vital Signs: Yes Vital Signs: Vital Signs Pulse Resp BP BP Pulse Ox 07/26/19 07:00 91 18 153/78 H 96 07/26/19 06:00 95 16 170/89 H 97 07/26/19 05:59 170/89 H 07/26/19 05:29 188/93 H 07/26/19 05:00 94 18 188/93 H 99 Intake & Output: Intake & Output 07/23/19 07/24/19 07/25/19 07/26/19 23:59 23:59 23:59 23:59 Intake Total 4576.633 5454.582 5123.234 981.667 Output Total 2250 2800 2950 1175 Balance 2326.633 2654.582 2173.234 -193.333 - Objective General Appearance: positive: No acute distress, Alert Eyes Bilateral: positive: Normal inspection ENT: positive: ENT inspection nml Neck: positive: Nml inspection Respiratory: positive: No respiratory distress. negative: Wheezes Cardiovascular: positive: Regular rate & rhythm, No murmur. negative: Tachycardia, Bradycardia, Systolic murmur Abdomen: positive: Non-tender, No distention. negative: Tenderness Skin: positive: Warm, Dry Extremities: positive: Full ROM, Pedal edema (Trace pitting edema in the bilateral lower extremities.) Neurologic/Psychiatric: positive: Oriented x3. negative: Disoriented to person, Disoriented to place, Disoriented to time - Lab Results Fish Bones: 07/26/19 04:25 07/26/19 04:25 Other Labs: Lab Results x24hrs 07/26/19 07/26/19 07/26/19 Range/Units 04:25 04:25 04:25 WBC (4.8-10.8) x10^3/uL RBC (4.70-6.10) 10^6/uL Hgb (14.0-18.0) g/dL Hct (42.0-52.0) % MCV (80.0-94.0) fL MCH (27.0-31.0) pg MCHC (32.0-36.0) g/dL RDW (12.0-15.0) % Plt Count (130-450) 10^3/uL MPV (7.4-11.4) fL Neut # (Auto) (1.5-6.6) 10^3/uL Lymph # (Auto) (1.5-3.5) 10^3/uL Rolette # (Auto) (0.0-1.0) 10^3/uL Eos # (Auto) (0.0-0.7) 10^3/uL Baso # (Auto) (0.0-0.1) 10^3/uL Absolute Nucleated RBC x10^3/uL Nucleated RBC % /100WBC Anti-Xa Level 0.4 ( - 0.7) U/mL Sodium (135-145) mmol/L Potassium (3.5-5.0) mmol/L Chloride (101-111) mmol/L Carbon Dioxide (21-32) mmol/L Anion Gap (6-13) BUN (6-20) mg/dL Creatinine (0.6-1.2) mg/dL Estimated GFR (MDRD) (>89) Glucose (70-100) mg/dL POC Whole Bld Glucose (70 - 100) mg/dL Calcium (8.5-10.3) mg/dL Phosphorus (2.5-4.6) mg/dL Magnesium (1.7-2.8) mg/dL Troponin I High Sens 299.0 H* (2.3-19.7) ng/L Albumin 3.0 L (3.2-5.5) g/dL 07/26/19 07/26/19 07/25/19 Range/Units 04:25 04:25 20:32 WBC 8.4 (4.8-10.8) x10^3/uL RBC 4.12 L (4.70-6.10) 10^6/uL Hgb 12.7 L (14.0-18.0) g/dL Hct 37.4 L (42.0-52.0) % MCV 90.8 (80.0-94.0) fL MCH 30.8 (27.0-31.0) pg MCHC 34.0 (32.0-36.0) g/dL RDW 13.0 (12.0-15.0) % Plt Count 175 (130-450) 10^3/uL MPV 10.0 (7.4-11.4) fL Neut # (Auto) 6.7 H (1.5-6.6) 10^3/uL Lymph # (Auto) 0.8 L (1.5-3.5) 10^3/uL Rolette # (Auto) 0.8 (0.0-1.0) 10^3/uL Eos # (Auto) 0.0 (0.0-0.7) 10^3/uL Baso # (Auto) 0.0 (0.0-0.1) 10^3/uL Absolute Nucleated RBC 0.00 x10^3/uL Nucleated RBC % 0.0 /100WBC Anti-Xa Level ( - 0.7) U/mL Sodium 131 L (135-145) mmol/L Potassium 4.0 (3.5-5.0) mmol/L Chloride 101 (101-111) mmol/L Carbon Dioxide 23 (21-32) mmol/L Anion Gap 7.0 (6-13) BUN 46 H (6-20) mg/dL Creatinine 1.3 H (0.6-1.2) mg/dL Estimated GFR (MDRD) 56 L (>89) Glucose 377 H (70-100) mg/dL POC Whole Bld Glucose 296 H (70 - 100) mg/dL Calcium 7.8 L (8.5-10.3) mg/dL Phosphorus 3.0 (2.5-4.6) mg/dL Magnesium 1.8 (1.7-2.8) mg/dL Troponin I High Sens (2.3-19.7) ng/L Albumin (3.2-5.5) g/dL 07/25/19 07/25/19 07/25/19 Range/Units 16:11 14:40 14:40 WBC (4.8-10.8) x10^3/uL RBC (4.70-6.10) 10^6/uL Hgb (14.0-18.0) g/dL Hct (42.0-52.0) % MCV (80.0-94.0) fL MCH (27.0-31.0) pg MCHC (32.0-36.0) g/dL RDW (12.0-15.0) % Plt Count (130-450) 10^3/uL MPV (7.4-11.4) fL Neut # (Auto) (1.5-6.6) 10^3/uL Lymph # (Auto) (1.5-3.5) 10^3/uL Rolette # (Auto) (0.0-1.0) 10^3/uL Eos # (Auto) (0.0-0.7) 10^3/uL Baso # (Auto) (0.0-0.1) 10^3/uL Absolute Nucleated RBC x10^3/uL Nucleated RBC % /100WBC Anti-Xa Level 0.4 ( - 0.7) U/mL Sodium (135-145) mmol/L Potassium (3.5-5.0) mmol/L Chloride (101-111) mmol/L Carbon Dioxide (21-32) mmol/L Anion Gap (6-13) BUN (6-20) mg/dL Creatinine (0.6-1.2) mg/dL Estimated GFR (MDRD) (>89) Glucose (70-100) mg/dL POC Whole Bld Glucose 247 H (70 - 100) mg/dL Calcium (8.5-10.3) mg/dL Phosphorus (2.5-4.6) mg/dL Magnesium (1.7-2.8) mg/dL Troponin I High Sens 753.7 H* (2.3-19.7) ng/L Albumin (3.2-5.5) g/dL 07/25/19 07/25/19 07/25/19 Range/Units 13:11 12:23 11:02 WBC (4.8-10.8) x10^3/uL RBC (4.70-6.10) 10^6/uL Hgb (14.0-18.0) g/dL Hct (42.0-52.0) % MCV (80.0-94.0) fL MCH (27.0-31.0) pg MCHC (32.0-36.0) g/dL RDW (12.0-15.0) % Plt Count (130-450) 10^3/uL MPV (7.4-11.4) fL Neut # (Auto) (1.5-6.6) 10^3/uL Lymph # (Auto) (1.5-3.5) 10^3/uL Rolette # (Auto) (0.0-1.0) 10^3/uL Eos # (Auto) (0.0-0.7) 10^3/uL Baso # (Auto) (0.0-0.1) 10^3/uL Absolute Nucleated RBC x10^3/uL Nucleated RBC % /100WBC Anti-Xa Level ( - 0.7) U/mL Sodium (135-145) mmol/L Potassium (3.5-5.0) mmol/L Chloride (101-111) mmol/L Carbon Dioxide (21-32) mmol/L Anion Gap (6-13) BUN (6-20) mg/dL Creatinine (0.6-1.2) mg/dL Estimated GFR (MDRD) (>89) Glucose (70-100) mg/dL POC Whole Bld Glucose 161 H 117 H 103 H (70 - 100) mg/dL Calcium (8.5-10.3) mg/dL Phosphorus (2.5-4.6) mg/dL Magnesium (1.7-2.8) mg/dL Troponin I High Sens (2.3-19.7) ng/L Albumin (3.2-5.5) g/dL 07/25/19 07/25/19 07/25/19 Range/Units 10:00 10:00 10:00 WBC 15.5 H (4.8-10.8) x10^3/uL RBC 4.12 L (4.70-6.10) 10^6/uL Hgb 13.1 L (14.0-18.0) g/dL Hct 37.2 L (42.0-52.0) % MCV 90.3 (80.0-94.0) fL MCH 31.8 H (27.0-31.0) pg MCHC 35.2 (32.0-36.0) g/dL RDW 13.1 (12.0-15.0) % Plt Count 209 (130-450) 10^3/uL MPV 9.6 (7.4-11.4) fL Neut # (Auto) (1.5-6.6) 10^3/uL Lymph # (Auto) (1.5-3.5) 10^3/uL Rolette # (Auto) (0.0-1.0) 10^3/uL Eos # (Auto) (0.0-0.7) 10^3/uL Baso # (Auto) (0.0-0.1) 10^3/uL Absolute Nucleated RBC x10^3/uL Nucleated RBC % /100WBC Anti-Xa Level ( - 0.7) U/mL Sodium 134 L (135-145) mmol/L Potassium 3.6 (3.5-5.0) mmol/L Chloride 105 (101-111) mmol/L Carbon Dioxide 17 L (21-32) mmol/L Anion Gap 12.0 (6-13) BUN 65 H (6-20) mg/dL Creatinine 2.0 H (0.6-1.2) mg/dL Estimated GFR (MDRD) 34 L (>89) Glucose 91 (70-100) mg/dL POC Whole Bld Glucose (70 - 100) mg/dL Calcium 7.8 L (8.5-10.3) mg/dL Phosphorus (2.5-4.6) mg/dL Magnesium (1.7-2.8) mg/dL Troponin I High Sens 1126.7 H* (2.3-19.7) ng/L Albumin (3.2-5.5) g/dL 07/25/19 07/25/19 07/25/19 Range/Units 09:58 09:03 08:36 WBC (4.8-10.8) x10^3/uL RBC (4.70-6.10) 10^6/uL Hgb (14.0-18.0) g/dL Hct (42.0-52.0) % MCV (80.0-94.0) fL MCH (27.0-31.0) pg MCHC (32.0-36.0) g/dL RDW (12.0-15.0) % Plt Count (130-450) 10^3/uL MPV (7.4-11.4) fL Neut # (Auto) (1.5-6.6) 10^3/uL Lymph # (Auto) (1.5-3.5) 10^3/uL Rolette # (Auto) (0.0-1.0) 10^3/uL Eos # (Auto) (0.0-0.7) 10^3/uL Baso # (Auto) (0.0-0.1) 10^3/uL Absolute Nucleated RBC x10^3/uL Nucleated RBC % /100WBC Anti-Xa Level 0.4 ( - 0.7) U/mL Sodium (135-145) mmol/L Potassium (3.5-5.0) mmol/L Chloride (101-111) mmol/L Carbon Dioxide (21-32) mmol/L Anion Gap (6-13) BUN (6-20) mg/dL Creatinine (0.6-1.2) mg/dL Estimated GFR (MDRD) (>89) Glucose (70-100) mg/dL POC Whole Bld Glucose 82 118 H (70 - 100) mg/dL Calcium (8.5-10.3) mg/dL Phosphorus (2.5-4.6) mg/dL Magnesium (1.7-2.8) mg/dL Troponin I High Sens (2.3-19.7) ng/L Albumin (3.2-5.5) g/dL 07/25/19 07/25/19 07/25/19 Range/Units 08:08 06:57 06:01 WBC (4.8-10.8) x10^3/uL RBC (4.70-6.10) 10^6/uL Hgb (14.0-18.0) g/dL Hct (42.0-52.0) % MCV (80.0-94.0) fL MCH (27.0-31.0) pg MCHC (32.0-36.0) g/dL RDW (12.0-15.0) % Plt Count (130-450) 10^3/uL MPV (7.4-11.4) fL Neut # (Auto) (1.5-6.6) 10^3/uL Lymph # (Auto) (1.5-3.5) 10^3/uL Rolette # (Auto) (0.0-1.0) 10^3/uL Eos # (Auto) (0.0-0.7) 10^3/uL Baso # (Auto) (0.0-0.1) 10^3/uL Absolute Nucleated RBC x10^3/uL Nucleated RBC % /100WBC Anti-Xa Level ( - 0.7) U/mL Sodium (135-145) mmol/L Potassium (3.5-5.0) mmol/L Chloride (101-111) mmol/L Carbon Dioxide (21-32) mmol/L Anion Gap (6-13) BUN (6-20) mg/dL Creatinine (0.6-1.2) mg/dL Estimated GFR (MDRD) (>89) Glucose (70-100) mg/dL POC Whole Bld Glucose 181 H 295 H 361 H (70 - 100) mg/dL Calcium (8.5-10.3) mg/dL Phosphorus (2.5-4.6) mg/dL Magnesium (1.7-2.8) mg/dL Troponin I High Sens (2.3-19.7) ng/L Albumin (3.2-5.5) g/dL 07/25/19 07/25/19 07/25/19 Range/Units 05:04 04:01 03:05 WBC (4.8-10.8) x10^3/uL RBC (4.70-6.10) 10^6/uL Hgb (14.0-18.0) g/dL Hct (42.0-52.0) % MCV (80.0-94.0) fL MCH (27.0-31.0) pg MCHC (32.0-36.0) g/dL RDW (12.0-15.0) % Plt Count (130-450) 10^3/uL MPV (7.4-11.4) fL Neut # (Auto) (1.5-6.6) 10^3/uL Lymph # (Auto) (1.5-3.5) 10^3/uL Rolette # (Auto) (0.0-1.0) 10^3/uL Eos # (Auto) (0.0-0.7) 10^3/uL Baso # (Auto) (0.0-0.1) 10^3/uL Absolute Nucleated RBC x10^3/uL Nucleated RBC % /100WBC Anti-Xa Level ( - 0.7) U/mL Sodium (135-145) mmol/L Potassium (3.5-5.0) mmol/L Chloride (101-111) mmol/L Carbon Dioxide (21-32) mmol/L Anion Gap (6-13) BUN (6-20) mg/dL Creatinine (0.6-1.2) mg/dL Estimated GFR (MDRD) (>89) Glucose (70-100) mg/dL POC Whole Bld Glucose 405 H 413 H 522 H* (70 - 100) mg/dL Calcium (8.5-10.3) mg/dL Phosphorus (2.5-4.6) mg/dL Magnesium (1.7-2.8) mg/dL Troponin I High Sens (2.3-19.7) ng/L Albumin (3.2-5.5) g/dL 07/25/19 07/24/19 07/24/19 Range/Units 02:09 17:05 12:03 WBC (4.8-10.8) x10^3/uL RBC (4.70-6.10) 10^6/uL Hgb (14.0-18.0) g/dL Hct (42.0-52.0) % MCV (80.0-94.0) fL MCH (27.0-31.0) pg MCHC (32.0-36.0) g/dL RDW (12.0-15.0) % Plt Count (130-450) 10^3/uL MPV (7.4-11.4) fL Neut # (Auto) (1.5-6.6) 10^3/uL Lymph # (Auto) (1.5-3.5) 10^3/uL Rolette # (Auto) (0.0-1.0) 10^3/uL Eos # (Auto) (0.0-0.7) 10^3/uL Baso # (Auto) (0.0-0.1) 10^3/uL Absolute Nucleated RBC x10^3/uL Nucleated RBC % /100WBC Anti-Xa Level ( - 0.7) U/mL Sodium (135-145) mmol/L Potassium (3.5-5.0) mmol/L Chloride (101-111) mmol/L Carbon Dioxide (21-32) mmol/L Anion Gap (6-13) BUN (6-20) mg/dL Creatinine (0.6-1.2) mg/dL Estimated GFR (MDRD) (>89) Glucose (70-100) mg/dL POC Whole Bld Glucose 538 H* 526 H* 423 H (70 - 100) mg/dL Calcium (8.5-10.3) mg/dL Phosphorus (2.5-4.6) mg/dL Magnesium (1.7-2.8) mg/dL Troponin I High Sens (2.3-19.7) ng/L Albumin (3.2-5.5) g/dL 07/24/19 07/24/19 07/24/19 Range/Units 10:33 09:42 08:04 WBC (4.8-10.8) x10^3/uL RBC (4.70-6.10) 10^6/uL Hgb (14.0-18.0) g/dL Hct (42.0-52.0) % MCV (80.0-94.0) fL MCH (27.0-31.0) pg MCHC (32.0-36.0) g/dL RDW (12.0-15.0) % Plt Count (130-450) 10^3/uL MPV (7.4-11.4) fL Neut # (Auto) (1.5-6.6) 10^3/uL Lymph # (Auto) (1.5-3.5) 10^3/uL Rolette # (Auto) (0.0-1.0) 10^3/uL Eos # (Auto) (0.0-0.7) 10^3/uL Baso # (Auto) (0.0-0.1) 10^3/uL Absolute Nucleated RBC x10^3/uL Nucleated RBC % /100WBC Anti-Xa Level ( - 0.7) U/mL Sodium (135-145) mmol/L Potassium (3.5-5.0) mmol/L Chloride (101-111) mmol/L Carbon Dioxide (21-32) mmol/L Anion Gap (6-13) BUN (6-20) mg/dL Creatinine (0.6-1.2) mg/dL Estimated GFR (MDRD) (>89) Glucose (70-100) mg/dL POC Whole Bld Glucose 331 H 264 H 123 H (70 - 100) mg/dL Calcium (8.5-10.3) mg/dL Phosphorus (2.5-4.6) mg/dL Magnesium (1.7-2.8) mg/dL Troponin I High Sens (2.3-19.7) ng/L Albumin (3.2-5.5) g/dL 07/24/19 07/24/19 07/24/19 Range/Units 06:11 05:02 04:09 WBC (4.8-10.8) x10^3/uL RBC (4.70-6.10) 10^6/uL Hgb (14.0-18.0) g/dL Hct (42.0-52.0) % MCV (80.0-94.0) fL MCH (27.0-31.0) pg MCHC (32.0-36.0) g/dL RDW (12.0-15.0) % Plt Count (130-450) 10^3/uL MPV (7.4-11.4) fL Neut # (Auto) (1.5-6.6) 10^3/uL Lymph # (Auto) (1.5-3.5) 10^3/uL Rolette # (Auto) (0.0-1.0) 10^3/uL Eos # (Auto) (0.0-0.7) 10^3/uL Baso # (Auto) (0.0-0.1) 10^3/uL Absolute Nucleated RBC x10^3/uL Nucleated RBC % /100WBC Anti-Xa Level ( - 0.7) U/mL Sodium (135-145) mmol/L Potassium (3.5-5.0) mmol/L Chloride (101-111) mmol/L Carbon Dioxide (21-32) mmol/L Anion Gap (6-13) BUN (6-20) mg/dL Creatinine (0.6-1.2) mg/dL Estimated GFR (MDRD) (>89) Glucose (70-100) mg/dL POC Whole Bld Glucose 162 H 202 H 221 H (70 - 100) mg/dL Calcium (8.5-10.3) mg/dL Phosphorus (2.5-4.6) mg/dL Magnesium (1.7-2.8) mg/dL Troponin I High Sens (2.3-19.7) ng/L Albumin (3.2-5.5) g/dL 07/24/19 07/24/19 07/24/19 Range/Units 02:57 01:58 01:23 WBC (4.8-10.8) x10^3/uL RBC (4.70-6.10) 10^6/uL Hgb (14.0-18.0) g/dL Hct (42.0-52.0) % MCV (80.0-94.0) fL MCH (27.0-31.0) pg MCHC (32.0-36.0) g/dL RDW (12.0-15.0) % Plt Count (130-450) 10^3/uL MPV (7.4-11.4) fL Neut # (Auto) (1.5-6.6) 10^3/uL Lymph # (Auto) (1.5-3.5) 10^3/uL Rolette # (Auto) (0.0-1.0) 10^3/uL Eos # (Auto) (0.0-0.7) 10^3/uL Baso # (Auto) (0.0-0.1) 10^3/uL Absolute Nucleated RBC x10^3/uL Nucleated RBC % /100WBC Anti-Xa Level ( - 0.7) U/mL Sodium (135-145) mmol/L Potassium (3.5-5.0) mmol/L Chloride (101-111) mmol/L Carbon Dioxide (21-32) mmol/L Anion Gap (6-13) BUN (6-20) mg/dL Creatinine (0.6-1.2) mg/dL Estimated GFR (MDRD) (>89) Glucose (70-100) mg/dL POC Whole Bld Glucose 195 H 122 H 92 (70 - 100) mg/dL Calcium (8.5-10.3) mg/dL Phosphorus (2.5-4.6) mg/dL Magnesium (1.7-2.8) mg/dL Troponin I High Sens (2.3-19.7) ng/L Albumin (3.2-5.5) g/dL 07/24/19 07/24/19 07/24/19 Range/Units 00:57 00:26 00:08 WBC (4.8-10.8) x10^3/uL RBC (4.70-6.10) 10^6/uL Hgb (14.0-18.0) g/dL Hct (42.0-52.0) % MCV (80.0-94.0) fL MCH (27.0-31.0) pg MCHC (32.0-36.0) g/dL RDW (12.0-15.0) % Plt Count (130-450) 10^3/uL MPV (7.4-11.4) fL Neut # (Auto) (1.5-6.6) 10^3/uL Lymph # (Auto) (1.5-3.5) 10^3/uL Rolette # (Auto) (0.0-1.0) 10^3/uL Eos # (Auto) (0.0-0.7) 10^3/uL Baso # (Auto) (0.0-0.1) 10^3/uL Absolute Nucleated RBC x10^3/uL Nucleated RBC % /100WBC Anti-Xa Level ( - 0.7) U/mL Sodium (135-145) mmol/L Potassium (3.5-5.0) mmol/L Chloride (101-111) mmol/L Carbon Dioxide (21-32) mmol/L Anion Gap (6-13) BUN (6-20) mg/dL Creatinine (0.6-1.2) mg/dL Estimated GFR (MDRD) (>89) Glucose (70-100) mg/dL POC Whole Bld Glucose 59 L* 82 100 (70 - 100) mg/dL Calcium (8.5-10.3) mg/dL Phosphorus (2.5-4.6) mg/dL Magnesium (1.7-2.8) mg/dL Troponin I High Sens (2.3-19.7) ng/L Albumin (3.2-5.5) g/dL 07/23/19 07/23/19 07/23/19 Range/Units 22:59 22:22 21:57 WBC (4.8-10.8) x10^3/uL RBC (4.70-6.10) 10^6/uL Hgb (14.0-18.0) g/dL Hct (42.0-52.0) % MCV (80.0-94.0) fL MCH (27.0-31.0) pg MCHC (32.0-36.0) g/dL RDW (12.0-15.0) % Plt Count (130-450) 10^3/uL MPV (7.4-11.4) fL Neut # (Auto) (1.5-6.6) 10^3/uL Lymph # (Auto) (1.5-3.5) 10^3/uL [place] # (Auto) (0.0-1.0) 10^3/uL Eos # (Auto) (0.0-0.7) 10^3/uL Baso # (Auto) (0.0-0.1) 10^3/uL Absolute Nucleated RBC x10^3/uL Nucleated RBC % /100WBC Anti-Xa Level ( - 0.7) U/mL Sodium (135-145) mmol/L Potassium (3.5-5.0) mmol/L Chloride (101-111) mmol/L Carbon Dioxide (21-32) mmol/L Anion Gap (6-13) BUN (6-20) mg/dL Creatinine (0.6-1.2) mg/dL Estimated GFR (MDRD) (>89) Glucose (70-100) mg/dL POC Whole Bld Glucose 123 H 138 H 153 H (70 - 100) mg/dL Calcium (8.5-10.3) mg/dL Phosphorus (2.5-4.6) mg/dL Magnesium (1.7-2.8) mg/dL Troponin I High Sens (2.3-19.7) ng/L Albumin (3.2-5.5) g/dL 07/23/19 07/23/19 07/23/19 Range/Units 21:02 20:02 19:03 WBC (4.8-10.8) x10^3/uL RBC (4.70-6.10) 10^6/uL Hgb (14.0-18.0) g/dL Hct (42.0-52.0) % MCV (80.0-94.0) fL MCH (27.0-31.0) pg MCHC (32.0-36.0) g/dL RDW (12.0-15.0) % Plt Count (130-450) 10^3/uL MPV (7.4-11.4) fL Neut # (Auto) (1.5-6.6) 10^3/uL Lymph # (Auto) (1.5-3.5) 10^3/uL Ro[place] # (Auto) (0.0-1.0) 10^3/uL Eos # (Auto) (0.0-0.7) 10^3/uL Baso # (Auto) (0.0-0.1) 10^3/uL Absolute Nucleated RBC x10^3/uL Nucleated RBC % /100WBC Anti-Xa Level ( - 0.7) U/mL Sodium (135-145) mmol/L Potassium (3.5-5.0) mmol/L Chloride (101-111) mmol/L Carbon Dioxide (21-32) mmol/L Anion Gap (6-13) BUN (6-20) mg/dL Creatinine (0.6-1.2) mg/dL Estimated GFR (MDRD) (>89) Glucose (70-100) mg/dL POC Whole Bld Glucose 141 H 90 124 H (70 - 100) mg/dL Calcium (8.5-10.3) mg/dL Phosphorus (2.5-4.6) mg/dL Magnesium (1.7-2.8) mg/dL Troponin I High Sens (2.3-19.7) ng/L Albumin (3.2-5.5) g/dL 07/23/19 07/23/19 07/23/19 Range/Units 18:02 17:06 16:02 WBC (4.8-10.8) x10^3/uL RBC (4.70-6.10) 10^6/uL Hgb (14.0-18.0) g/dL Hct (42.0-52.0) % MCV (80.0-94.0) fL MCH (27.0-31.0) pg MCHC (32.0-36.0) g/dL RDW (12.0-15.0) % Plt Count (130-450) 10^3/uL MPV (7.4-11.4) fL Neut # (Auto) (1.5-6.6) 10^3/uL Lymph # (Auto) (1.5-3.5) 10^3/uL [place] # (Auto) (0.0-1.0) 10^3/uL Eos # (Auto) (0.0-0.7) 10^3/uL Baso # (Auto) (0.0-0.1) 10^3/uL Absolute Nucleated RBC x10^3/uL Nucleated RBC % /100WBC Anti-Xa Level ( - 0.7) U/mL Sodium (135-145) mmol/L Potassium (3.5-5.0) mmol/L Chloride (101-111) mmol/L Carbon Dioxide (21-32) mmol/L Anion Gap (6-13) BUN (6-20) mg/dL Creatinine (0.6-1.2) mg/dL Estimated GFR (MDRD) (>89) Glucose (70-100) mg/dL POC Whole Bld Glucose 271 H 307 H 341 H (70 - 100) mg/dL Calcium (8.5-10.3) mg/dL Phosphorus (2.5-4.6) mg/dL Magnesium (1.7-2.8) mg/dL Troponin I High Sens (2.3-19.7) ng/L Albumin (3.2-5.5) g/dL 07/23/19 07/23/19 07/23/19 Range/Units 15:19 11:29 10:00 WBC (4.8-10.8) x10^3/uL RBC (4.70-6.10) 10^6/uL Hgb (14.0-18.0) g/dL Hct (42.0-52.0) % MCV (80.0-94.0) fL MCH (27.0-31.0) pg MCHC (32.0-36.0) g/dL RDW (12.0-15.0) % Plt Count (130-450) 10^3/uL MPV (7.4-11.4) fL Neut # (Auto) (1.5-6.6) 10^3/uL Lymph # (Auto) (1.5-3.5) 10^3/uL [place] # (Auto) (0.0-1.0) 10^3/uL Eos # (Auto) (0.0-0.7) 10^3/uL Baso # (Auto) (0.0-0.1) 10^3/uL Absolute Nucleated RBC x10^3/uL Nucleated RBC % /100WBC Anti-Xa Level ( - 0.7) U/mL Sodium (135-145) mmol/L Potassium (3.5-5.0) mmol/L Chloride (101-111) mmol/L Carbon Dioxide (21-32) mmol/L Anion Gap (6-13) BUN (6-20) mg/dL Creatinine (0.6-1.2) mg/dL Estimated GFR (MDRD) (>89) Glucose (70-100) mg/dL POC Whole Bld Glucose 372 H 446 H 518 H* (70 - 100) mg/dL Calcium (8.5-10.3) mg/dL Phosphorus (2.5-4.6) mg/dL Magnesium (1.7-2.8) mg/dL Troponin I High Sens (2.3-19.7) ng/L Albumin (3.2-5.5) g/dL 07/23/19 07/22/19 07/22/19 Range/Units 07:41 20:29 17:15 WBC (4.8-10.8) x10^3/uL RBC (4.70-6.10) 10^6/uL Hgb (14.0-18.0) g/dL Hct (42.0-52.0) % MCV (80.0-94.0) fL MCH (27.0-31.0) pg MCHC (32.0-36.0) g/dL RDW (12.0-15.0) % Plt Count (130-450) 10^3/uL MPV (7.4-11.4) fL Neut # (Auto) (1.5-6.6) 10^3/uL Lymph # (Auto) (1.5-3.5) 10^3/uL [place] # (Auto) (0.0-1.0) 10^3/uL Eos # (Auto) (0.0-0.7) 10^3/uL Baso # (Auto) (0.0-0.1) 10^3/uL Absolute Nucleated RBC x10^3/uL Nucleated RBC % /100WBC Anti-Xa Level ( - 0.7) U/mL Sodium (135-145) mmol/L Potassium (3.5-5.0) mmol/L Chloride (101-111) mmol/L Carbon Dioxide (21-32) mmol/L Anion Gap (6-13) BUN (6-20) mg/dL Creatinine (0.6-1.2) mg/dL Estimated GFR (MDRD) (>89) Glucose (70-100) mg/dL POC Whole Bld Glucose 463 H 346 H 368 H (70 - 100) mg/dL Calcium (8.5-10.3) mg/dL Phosphorus (2.5-4.6) mg/dL Magnesium (1.7-2.8) mg/dL Troponin I High Sens (2.3-19.7) ng/L Albumin (3.2-5.5) g/dL 07/22/19 07/22/19 07/22/19 Range/Units 17:13 11:50 07:29 WBC (4.8-10.8) x10^3/uL RBC (4.70-6.10) 10^6/uL Hgb (14.0-18.0) g/dL Hct (42.0-52.0) % MCV (80.0-94.0) fL MCH (27.0-31.0) pg MCHC (32.0-36.0) g/dL RDW (12.0-15.0) % Plt Count (130-450) 10^3/uL MPV (7.4-11.4) fL Neut # (Auto) (1.5-6.6) 10^3/uL Lymph # (Auto) (1.5-3.5) 10^3/uL [place] # (Auto) (0.0-1.0) 10^3/uL Eos # (Auto) (0.0-0.7) 10^3/uL Baso # (Auto) (0.0-0.1) 10^3/uL Absolute Nucleated RBC x10^3/uL Nucleated RBC % /100WBC Anti-Xa Level ( - 0.7) U/mL Sodium (135-145) mmol/L Potassium (3.5-5.0) mmol/L Chloride (101-111) mmol/L Carbon Dioxide (21-32) mmol/L Anion Gap (6-13) BUN (6-20) mg/dL Creatinine (0.6-1.2) mg/dL Estimated GFR (MDRD) (>89) Glucose (70-100) mg/dL POC Whole Bld Glucose 386 H 298 H 226 H (70 - 100) mg/dL Calcium (8.5-10.3) mg/dL Phosphorus (2.5-4.6) mg/dL Magnesium (1.7-2.8) mg/dL Troponin I High Sens (2.3-19.7) ng/L Albumin (3.2-5.5) g/dL Assessment/Plan - Problem List (1) NSTEMI (non-ST elevated myocardial infarction) Impression: Troponins peaked over 1200 and they are now trending down. His EKG showed nonspecific ST segment changes and this was discussed with cardiology at [place] who felt his EKG was reassuring and that he did not need an angiogram unless he had ongoing symptoms. At this time, he remains without chest pain and no arrhythmias. We will continue him on a heparin infusion for a total of 48 hours. Continue on daily aspirin, Lipitor, carvedilol. We will repeat an echocardiogram today to assess for any wall motion abnormalities. Based on these findings, will discuss with cardiology again if he would require transfer at some point for an angiogram or whether to follow-up on an outpatient basis for an outpatient angiogram. [place] and would prefer [facility] for cardiology follow-up (2) Acute kidney injury Impression: This is likely secondary to urinary retention as he required to be straight cath multiple times. His creatinine is now down to 1.3 today. He is now able to urinate without requiring catheterization. We will continue to monitor his renal function and urine output. (3) Hypertension Impression: His blood pressure elevated in the 190s overnight and this was likely due to discontinuation of the clonidine patch. His carvedilol has been increased 25 mg twice daily and losartan has been resumed given resolution of his acute kidney injury. Blood pressures improved into the 150s this morning. We will continue these two antihypertensives and will consider increasing his losartan if need be. Continue hydralazine IV as needed. Qualifiers: Hypertension type: essential hypertension Qualified Code(s): I10 - Essential (primary) hypertension (4) IDDM (insulin dependent diabetes mellitus) Impression: Now off of an insulin drip but his glucose this morning was greater than 300. Increase Humulin to 30 units twice daily. Continue sliding scale. Carb controlled diet.He is fortunately not in diabetic ketoacidosis. (5) Urinary retention Impression: This was likely secondary to his BPH and him being off of his Flomax for a few days. He not able to urinate without requiring catheterization. Continue Flomax. Bladder scan as needed. Consider straight catheterization if need be. (6) Gastroparesis diabeticorum Impression: Reports no more nausea and vomiting although he has had a poor appetite. We will continue the carb controlled diet as tolerated and Reglan scheduled. (7) BPH (benign prostatic hyperplasia) Impression: This likely exacerbated his acute urinary retention. Continue with Flomax. (8) GERD (gastroesophageal reflux disease) Impression: Stable. Continue with Protonix and Tums as needed.
[2019-07-26] MEDS: TAMSULOSIN 0.4 MG CAPSULE PO SCH (08:24)
[2019-07-26] MEDS: LOSARTAN 50 MG TABLET PO SCH (08:24)
[2019-07-26] MEDS: polyethylene glycoL 3350 17 GM PACKET PO SCH (08:24)
[2019-07-26] MEDS: ASPIRIN EC 81 MG TABLET PO SCH (08:24)
[2019-07-26] MEDS: INSULIN NPH HUMAN 300 UNIT/3 ML VIAL SUBQ SCH ×2 (08:26→20:18)
[2019-07-26] MEDS ORDERED: INSULIN NPH HUMAN 300 UNIT/3 ML VIAL SUBQ SCH (09:00)
[2019-07-26] MEDS: SENNA 8.6 MG TABLET PO SCH (12:01)
[2019-07-26] MEDS: DOCUSATE SODIUM 250 MG CAPSULE PO SCH (12:02)
[2019-07-26] MEDS: HEPARIN 25000UNITS/500ML (D5W) 25,000 UNIT/500 ML BAG IV SCH (14:46)
[2019-07-26] MEDS: ATORVASTATIN 40 MG TABLET PO SCH (20:23)
[2019-07-26] MEDS: SODIUM CHLORIDE FLUSH 0.9% 10 ML SYRINGE IVP PRN (20:26)
[2019-07-27] MEDS: PROCHLORPERAZINE 10 MG/2 ML VIAL IVP PRN ×2 (00:43→05:40)
[2019-07-27] MEDS: SODIUM CHLORIDE FLUSH 0.9% 10 ML SYRINGE IVP PRN ×5 (00:43→07:25)
[2019-07-27] MEDS: ONDANSETRON 4 MG/2 ML VIAL IVP PRN (03:00)
[2019-07-27 03:11] LABS: BASOPHILS % (AUTO) 0.2 %; EOSINOPHILS % (AUTO) 0.5 %; HGB - HEMOGLOBIN 12.3 g/dL (14.0-18.0); LYMPHOCYTES # (AUTO) 0.9 10^3/uL (1.5-3.5); LYMPHOCYTES % (AUTO) 15.6 %; MEAN CORPUSCULAR HEMOGLOBIN 31.1 pg (27.0-31.0); MEAN CORPUSCULAR HGB CONC 33.9 g/dL (32.0-36.0); MEAN CORPUSCULAR VOLUME 91.7 fL (80.0-94.0); MEAN PLATELET VOLUME 9.6 fL (7.4-11.4); MONOCYTES # (AUTO) 0.7 10^3/uL (0.0-1.0); MONOCYTES % (AUTO) 11.4 %; NEUTROPHILS # (AUTO) 4.1 10^3/uL (1.5-6.6); NEUTROPHILS % (AUTO) 71.8 %; PLT - PLATELET COUNT 155 10^3/uL (130-450); RED BLOOD COUNT 3.96 10^6/uL (4.70-6.10); RED CELL DISTRIBUTION WIDTH 13.1 % (12.0-15.0); WHITE BLOOD COUNT 5.8 x10^3/uL (4.8-10.8)
[2019-07-27 03:24] LABS: CALCIUM 8.2 mg/dL (8.5-10.3); CREATININE 1.1 mg/dL (0.6-1.2); MAGNESIUM 2.1 mg/dL (1.7-2.8)
[2019-07-27] MEDS: METOCLOPRAMIDE 10 MG TABLET PO SCH ×4 (07:25→20:57)
[2019-07-27] MEDS: PANTOPRAZOLE 40 MG VIAL IVP SCH (07:25)
[2019-07-27] MEDS: INSULIN ASPART 300 UNIT/3 ML PEN SUBQ SCH ×4 (07:51→20:56)
[2019-07-27] MEDS: ASPIRIN EC 81 MG TABLET PO SCH (09:06)
[2019-07-27] MEDS: carvediloL 12.5 MG TABLET PO SCH ×2 (09:06→20:53)
[2019-07-27] MEDS: DOCUSATE SODIUM 250 MG CAPSULE PO SCH (09:06)
[2019-07-27] MEDS: LOSARTAN 50 MG TABLET PO SCH (09:07)
[2019-07-27] MEDS: SENNA 8.6 MG TABLET PO SCH (09:07)
[2019-07-27] MEDS: TAMSULOSIN 0.4 MG CAPSULE PO SCH (09:08)
[2019-07-27] MEDS: INSULIN NPH HUMAN 300 UNIT/3 ML VIAL SUBQ SCH ×2 (09:16→20:54)
[2019-07-27] MEDS: polyethylene glycoL 3350 17 GM PACKET PO SCH (09:18)
[2019-07-27] MEDS: SODIUM CHLORIDE FLUSH 0.9% 10 ML SYRINGE IVP SCH ×2 (09:18→15:48)
--- NOTE | 2019-07-27 09:34 | PROVIDER PROGRESS NOTE ---
Subjective - Prog Note Date Prog Note Date: 07/27/19 - Subjective Subjective: He reports he felt well yesterday but overnight he had multiple episodes of emesis. This morning, he had apple juice and immediately had 600mL of non-bloody emesis after. He reports no nausea with the emesis. Has occasional epigastric pain. Reports no chest pain or dyspnea. Does complain of some heart burn. He reports having an EGD multiple years ago at [facility] in [place] but cannot recall what the results of it were. Current Medications - Current Medications Current Medications: Active Medications Aspirin (Ecotrin) 81 mg PO DAILY [facility] Last Admin: 07/27/19 09:06 Dose: 81 mg Atorvastatin Calcium (Lipitor) 80 mg PO QPM [facility] Last Admin: 07/26/19 20:23 Dose: 80 mg Calcium Carbonate/Glycine (Tums) 500 mg PO TID PRN PRN Reason: Heartburn Last Admin: 07/25/19 16:19 Dose: 500 mg Carvedilol (Coreg) 25 mg PO BID [facility] Last Admin: 07/27/19 09:06 Dose: 25 mg Docusate Sodium (Colace 250mg Capsule) 250 - 500 mg PO DAILY [facility] Last Admin: 07/27/19 09:06 Dose: 250 mg Hydralazine HCl (Apresoline Inj) 10 mg IVP Q6H PRN PRN Reason: SBP > 160 or DBP > 100 Last Admin: 07/26/19 17:08 Dose: 10 mg Insulin Aspart (Novolog) 3 - 11 unit SUBQ 0800,1200,1700,2100 [facility]; Protocol Last Admin: 07/27/19 07:51 Dose: 5 unit Insulin Human NPH (Humulin N) 35 unit SUBQ BID [facility] Last Admin: 07/27/19 09:16 Dose: 35 unit Losartan Potassium (Cozaar) 100 mg PO DAILY [facility] Last Admin: 07/27/19 09:07 Dose: 100 mg Metoclopramide HCl (Reglan) 10 mg PO ACHS [facility] Last Admin: 07/27/19 07:25 Dose: 10 mg Ondansetron HCl (Zofran Inj) 4 mg IVP Q4HR PRN PRN Reason: Nausea / Vomiting Last Admin: 07/27/19 03:00 Dose: 4 mg Ondansetron HCl (Zofran Odt) 4 mg TL Q4HR PRN PRN Reason: Nausea / Vomiting Last Admin: 07/25/19 08:28 Dose: 4 mg Pantoprazole Sodium (Protonix) 40 mg IVP QDAC [facility] Last Admin: 07/27/19 07:25 Dose: 40 mg Polyethylene Glycol (Miralax) 17 gm PO DAILY [facility] Last Admin: 07/27/19 09:18 Dose: Not Given Prochlorperazine Edisylate (Compazine Inj) 10 mg IVP Q4HR PRN PRN Reason: Nausea / Vomiting Last Admin: 07/27/19 05:40 Dose: 10 mg Senna (Senokot) 8.6 - 17.2 mg PO DAILY [facility] Last Admin: 07/27/19 09:07 Dose: 8.6 mg Sodium Chloride (Normal Saline Flush 0.9%) 10 ml IVP PRN PRN PRN Reason: NEEDED PER PROVIDER ORDERS Last Admin: 07/27/19 07:25 Dose: 20 ml Sodium Chloride (Normal Saline Flush 0.9%) 10 ml IVP 0100,0900,1700 [facility] Last Admin: 07/27/19 09:18 Dose: 10 ml Sodium Chloride (Normal Saline Flush 0.9%) 20 ml IVP PRN PRN PRN Reason: After Blood Draw Last Admin: 07/27/19 03:05 Dose: 20 ml Tamsulosin HCl (Flomax) 0.4 mg PO DAILY [facility] Last Admin: 07/27/19 09:08 Dose: 0.4 mg Atorvastatin Calcium 40 mg PO QPM 06/09/19 Insulin Regular Human [NovoLIN R] 2 - 10 unit SUBQ TIDWM 06/09/19 Omeprazole 20 mg PO QDAC 06/09/19 Tamsulosin [Flomax] 0.4 mg PO DAILY 06/09/19 Insulin NPH Human [Humulin N] 35 unit SUBQ BID 06/10/19 Losartan [Cozaar] 50 mg PO DAILY 07/22/19 Metoclopramide [Reglan] 10 mg PO Q6H PRN 07/22/19 Objective - Vital Signs/Intake & Output Reviewed Vital Signs: Yes Vital Signs: Vital Signs x48h Temp Pulse Resp BP Pulse Ox 07/27/19 08:18 98.4 C H 91 18 204/119 H 97 07/27/19 07:00 80 12 121/66 94 07/27/19 06:00 80 153/84 H 95 07/27/19 05:00 79 144/70 H 95 07/27/19 04:00 80 14 122/64 94 07/27/19 03:00 37.0 C 82 20 167/96 H 96 07/27/19 02:00 79 116/76 97 Intake & Output: Intake & Output 07/24/19 07/25/19 07/26/19 07/27/19 23:59 23:59 23:59 23:59 Intake Total 5454.582 5123.234 3543.930 596.28 Output Total 2800 2950 2625 1000 Balance 2654.582 2173.234 918.930 -403.72 - Objective General Appearance: positive: No acute distress, Alert Eyes Bilateral: positive: Normal inspection ENT: positive: ENT inspection nml Neck: positive: Nml inspection Respiratory: positive: No respiratory distress. negative: Wheezes, Rales Cardiovascular: positive: Regular rate & rhythm, No murmur. negative: Systolic murmur, Diastolic murmur Abdomen: positive: Non-tender, Nml bowel sounds, No distention. negative: Tenderness, Guarding, Rebound Skin: positive: Color nml, Warm, Dry Extremities: positive: Full ROM, Pedal edema (Trace pitting edema in right lower extremity.) Neurologic/Psychiatric: positive: Oriented x3. negative: Disoriented to person, Disoriented to place, Disoriented to time - Lab Results Fish Bones: 07/27/19 03:00 07/27/19 03:00 Other Labs: Lab Results x24hrs 07/27/19 07/27/19 07/27/19 Range/Units 07:48 03:00 03:00 WBC (4.8-10.8) x10^3/uL RBC (4.70-6.10) 10^6/uL Hgb (14.0-18.0) g/dL Hct (42.0-52.0) % MCV (80.0-94.0) fL MCH (27.0-31.0) pg MCHC (32.0-36.0) g/dL RDW (12.0-15.0) % Plt Count (130-450) 10^3/uL MPV (7.4-11.4) fL Neut # (Auto) (1.5-6.6) 10^3/uL Lymph # (Auto) (1.5-3.5) 10^3/uL [place] # (Auto) (0.0-1.0) 10^3/uL Eos # (Auto) (0.0-0.7) 10^3/uL Baso # (Auto) (0.0-0.1) 10^3/uL Absolute Nucleated RBC x10^3/uL Nucleated RBC % /100WBC Anti-Xa Level 0.4 ( - 0.7) U/mL Sodium 135 (135-145) mmol/L Potassium 3.6 (3.5-5.0) mmol/L Chloride 102 (101-111) mmol/L Carbon Dioxide 24 (21-32) mmol/L Anion Gap 9.0 (6-13) BUN 34 H (6-20) mg/dL Creatinine 1.1 (0.6-1.2) mg/dL Estimated GFR (MDRD) 68 L (>89) Glucose 190 H (70-100) mg/dL POC Whole Bld Glucose 188 H (70 - 100) mg/dL Calcium 8.2 L (8.5-10.3) mg/dL Phosphorus 3.0 (2.5-4.6) mg/dL Magnesium 2.1 (1.7-2.8) mg/dL 07/27/19 07/27/19 07/26/19 Range/Units 03:00 02:51 20:13 WBC 5.8 (4.8-10.8) x10^3/uL RBC 3.96 L (4.70-6.10) 10^6/uL Hgb 12.3 L (14.0-18.0) g/dL Hct 36.3 L (42.0-52.0) % MCV 91.7 (80.0-94.0) fL MCH 31.1 H (27.0-31.0) pg MCHC 33.9 (32.0-36.0) g/dL RDW 13.1 (12.0-15.0) % Plt Count 155 (130-450) 10^3/uL MPV 9.6 (7.4-11.4) fL Neut # (Auto) 4.1 (1.5-6.6) 10^3/uL Lymph # (Auto) 0.9 L (1.5-3.5) 10^3/uL [place] # (Auto) 0.7 (0.0-1.0) 10^3/uL Eos # (Auto) 0.0 (0.0-0.7) 10^3/uL Baso # (Auto) 0.0 (0.0-0.1) 10^3/uL Absolute Nucleated RBC 0.00 x10^3/uL Nucleated RBC % 0.0 /100WBC Anti-Xa Level ( - 0.7) U/mL Sodium (135-145) mmol/L Potassium (3.5-5.0) mmol/L Chloride (101-111) mmol/L Carbon Dioxide (21-32) mmol/L Anion Gap (6-13) BUN (6-20) mg/dL Creatinine (0.6-1.2) mg/dL Estimated GFR (MDRD) (>89) Glucose (70-100) mg/dL POC Whole Bld Glucose 185 H 374 H (70 - 100) mg/dL Calcium (8.5-10.3) mg/dL Phosphorus (2.5-4.6) mg/dL Magnesium (1.7-2.8) mg/dL 07/26/19 07/26/19 Range/Units 17:02 12:01 WBC (4.8-10.8) x10^3/uL RBC (4.70-6.10) 10^6/uL Hgb (14.0-18.0) g/dL Hct (42.0-52.0) % MCV (80.0-94.0) fL MCH (27.0-31.0) pg MCHC (32.0-36.0) g/dL RDW (12.0-15.0) % Plt Count (130-450) 10^3/uL MPV (7.4-11.4) fL Neut # (Auto) (1.5-6.6) 10^3/uL Lymph # (Auto) (1.5-3.5) 10^3/uL [place] # (Auto) (0.0-1.0) 10^3/uL Eos # (Auto) (0.0-0.7) 10^3/uL Baso # (Auto) (0.0-0.1) 10^3/uL Absolute Nucleated RBC x10^3/uL Nucleated RBC % /100WBC Anti-Xa Level ( - 0.7) U/mL Sodium (135-145) mmol/L Potassium (3.5-5.0) mmol/L Chloride (101-111) mmol/L Carbon Dioxide (21-32) mmol/L Anion Gap (6-13) BUN (6-20) mg/dL Creatinine (0.6-1.2) mg/dL Estimated GFR (MDRD) (>89) Glucose (70-100) mg/dL POC Whole Bld Glucose 291 H 261 H (70 - 100) mg/dL Calcium (8.5-10.3) mg/dL Phosphorus (2.5-4.6) mg/dL Magnesium (1.7-2.8) mg/dL ABX Reporting Has patient been on IV antibiotics over the past 48 hours?: No Assessment/Plan - Problem List (1) Intractable nausea and vomiting Impression: He continues to have persistent vomiting despite minimal oral intake. It is unclear if is related to his gastroparesis or his recent cardiac event. He really has no other complaints and denies abdominal pain. Placed on a clear liquid diet for the time being. Continue Protonix IV and Reglan scheduled. Ob tain abdominal x-ray. Recheck a troponin and EKG. If there is concern for a rising troponin or any EKG changes, then you need to be transferred for an angiogram. We will also consider consulting general surgery for an EGD if this persists although he would be higher risk given his recent NSTEMI (2) NSTEMI (non-ST elevated myocardial infarction) Impression: Completed 48 hours of anticoagulation with heparin. His echocardiogram did not show any wall motion abnormalities and ejection fraction is preserved. Continue him on aspirin, statin, carvedilol. We will recheck an EKG and troponin given his nausea and vomiting. If he does not need transfer for angiogram, we will set up an outpatient appointment for him prior to discharge with cardiology in [place]. (3) Acute kidney injury Impression: This has resolved. This was likely secondary to acute urinary retention given his BPH. Continue to monitor his renal function urine output. Continue Flomax. (4) Hypertension Qualifiers: Hypertension type: essential hypertension Qualified Code(s): I10 - Essential (primary) hypertension (5) IDDM (insulin dependent diabetes mellitus) Impression: His blood sugars have been better controlled but remain elevated in the 190s. We will increase his insulin to 35 units twice daily and continue with sliding scale. Continue with full liquid diet as tolerated given his nausea and vomiting. (6) Gastroparesis diabeticorum Impression: This may be contributing to his nausea and vomiting. We will continue with scheduled Reglan. Zofran as needed. (7) GERD (gastroesophageal reflux disease) Impression: Continue with Protonix and Tums as needed. Consider EGD if his nausea and vomiting persists. (8) BPH (benign prostatic hyperplasia) Impression: Stable. Continue Flomax. (9) Urinary retention Impression: This has since resolved and was secondary to his BPH.
--- NOTE | 2019-07-27 10:51 | XRAY Report ---
Reason: Nausea, vomiting. Procedure Date: 07/27/2019 Accession Number: [id number] / [id number] Procedure: XR - Abdomen 1 View X-Ray CPT Code: 63785 Final Report FULL RESULT: EXAM: ABDOMEN RADIOGRAPHY EXAM DATE: 07/27/2019 10:25 AM. CLINICAL HISTORY: Nausea, vomiting. COMPARISON: CT abdomen and pelvis from 06/13/2019. TECHNIQUE: 1 view. FINDINGS: Bowel Gas Pattern: Within normal limits. No dilated bowel loops are demonstrated. Small amount of gas is present in nondistended stomach. Other: Degenerative disk disease present in the mid and lower lumbar spine. IMPRESSION: No radiographic evidence of bowel obstruction. [facility]
--- NOTE | 2019-07-27 14:12 | Ultrasound Report ---
Reason: Lower extremity edema. Eval for DVT. Procedure Date: 07/27/2019 Accession Number: [id number] / [id number] Procedure: US - Duplex Ext Veins Right CPT Code: Final Report FULL RESULT: EXAM: RIGHT LOWER EXTREMITY VENOUS ULTRASOUND EXAM DATE: 07/27/2019 12:12 PM. CLINICAL HISTORY: Lower extremity edema. Eval for DVT. COMPARISON: None. TECHNIQUE: Real-time sonographic vascular imaging was performed by the ivory polisher through the lower extremity utilizing both color-flow and Doppler spectral analysis. Multiple volunteer patient representative static images were saved for review. FINDINGS: Common Femoral Vein (CFV): Normal. CFV-GSV Junction: Normal. Profunda Femoral Vein (PFV): Normal. Femoral Vein (FV) Prox: Normal. Femoral Vein (FV) Mid: Normal. Femoral Vein (FV) Dist: Normal. Popliteal Vein: Normal. Posterior Tibial Veins: Visualized portions within normal limits. Peroneal Veins: Not well seen. Other: None. IMPRESSION: No evidence for deep venous thrombosis. [facility]
[2019-07-27] MEDS: ATORVASTATIN 40 MG TABLET PO SCH (20:53)
[2019-07-28] MEDS: SODIUM CHLORIDE FLUSH 0.9% 10 ML SYRINGE IVP SCH ×4 (01:12→23:44)
[2019-07-28] MEDS: PROCHLORPERAZINE 10 MG/2 ML VIAL IVP PRN (05:16)
[2019-07-28] MEDS: hydrALAZINE INJ 20 MG/ML VIAL IVP PRN (05:17)
[2019-07-28] MEDS: SODIUM CHLORIDE FLUSH 0.9% 10 ML SYRINGE IVP PRN ×3 (05:18→05:56)
[2019-07-28] MEDS: PANTOPRAZOLE 40 MG VIAL IVP SCH (05:56)
[2019-07-28] MEDS: METOCLOPRAMIDE 10 MG TABLET PO SCH ×4 (06:06→20:11)
[2019-07-28 06:16] LABS: BASOPHILS % (AUTO) 0.2 %; EOSINOPHILS # (AUTO) 0.1 10^3/uL (0.0-0.7); EOSINOPHILS % (AUTO) 1.5 %; HGB - HEMOGLOBIN 11.4 g/dL (14.0-18.0); LYMPHOCYTES # (AUTO) 0.7 10^3/uL (1.5-3.5); LYMPHOCYTES % (AUTO) 14.1 %; MEAN CORPUSCULAR HEMOGLOBIN 31.9 pg (27.0-31.0); MEAN CORPUSCULAR HGB CONC 34.9 g/dL (32.0-36.0); MEAN CORPUSCULAR VOLUME 91.6 fL (80.0-94.0); MEAN PLATELET VOLUME 9.9 fL (7.4-11.4); MONOCYTES # (AUTO) 0.5 10^3/uL (0.0-1.0); MONOCYTES % (AUTO) 10.1 %; NEUTROPHILS # (AUTO) 3.5 10^3/uL (1.5-6.6); NEUTROPHILS % (AUTO) 73.9 %; PLT - PLATELET COUNT 148 10^3/uL (130-450); RED BLOOD COUNT 3.57 10^6/uL (4.70-6.10); RED CELL DISTRIBUTION WIDTH 12.5 % (12.0-15.0); WHITE BLOOD COUNT 4.8 x10^3/uL (4.8-10.8)
[2019-07-28 06:28] LABS: CALCIUM 7.9 mg/dL (8.5-10.3); CREATININE 1.1 mg/dL (0.6-1.2); MAGNESIUM 1.9 mg/dL (1.7-2.8); PHOSPHORUS 3.1 mg/dL (2.5-4.6)
[2019-07-28] MEDS: SENNA 8.6 MG TABLET PO SCH ×2 (08:29→20:18)
[2019-07-28] MEDS: ASPIRIN EC 81 MG TABLET PO SCH (08:30)
[2019-07-28] MEDS: TAMSULOSIN 0.4 MG CAPSULE PO SCH (08:31)
[2019-07-28] MEDS: LOSARTAN 50 MG TABLET PO SCH ×2 (08:31→08:36)
[2019-07-28] MEDS: DOCUSATE SODIUM 250 MG CAPSULE PO SCH ×2 (08:32→20:18)
[2019-07-28] MEDS: carvediloL 12.5 MG TABLET PO SCH ×2 (08:33→20:11)
[2019-07-28] MEDS: polyethylene glycoL 3350 17 GM PACKET PO SCH (08:36)
[2019-07-28] MEDS ORDERED: POTASSIUM CHLORIDE 20 MEQ/15 ML UDC PO ONE (09:00)
[2019-07-28] MEDS: amLODIPine 5 MG TABLET PO SCH (09:15)
[2019-07-28] MEDS: INSULIN ASPART 300 UNIT/3 ML PEN SUBQ SCH ×4 (09:23→20:18)
[2019-07-28] MEDS: INSULIN NPH HUMAN 300 UNIT/3 ML VIAL SUBQ SCH ×2 (09:31→21:16)
--- NOTE | 2019-07-28 10:12 | PROVIDER PROGRESS NOTE ---
Subjective - Prog Note Date Prog Note Date: 07/28/19 - Subjective Subjective: He was hypoglycemic overnight with a blood glucose in the 50s. He states that he was diaphoretic during that episode. He also had an episode of vomiting overnight and another one this morning when he was taking his pills. He states it occurred with drinking apple juice again. Volume of emesis was less compared to yesterday and it is nonbloody. He reports no abdominal pain. Still has occasional heartburn but no chest pain or dyspnea. He has not had a bowel movement in nearly 1 week but he attributes this to not eating much over this past period of time. Current Medications - Current Medications Current Medications: Active Medications Amlodipine Besylate (Norvasc) 5 mg PO DAILY [facility] Aspirin (Ecotrin) 81 mg PO DAILY [facility] Last Admin: 07/28/19 08:30 Dose: 81 mg Atorvastatin Calcium (Lipitor) 80 mg PO QPM [facility] Last Admin: 07/27/19 20:53 Dose: 80 mg Calcium Carbonate/Glycine (Tums) 500 mg PO TID PRN PRN Reason: Heartburn Last Admin: 07/25/19 16:19 Dose: 500 mg Carvedilol (Coreg) 25 mg PO BID [facility] Last Admin: 07/28/19 08:33 Dose: 25 mg Docusate Sodium (Colace 250mg Capsule) 250 - 500 mg PO DAILY [facility] Last Admin: 07/28/19 08:32 Dose: 500 mg Hydralazine HCl (Apresoline Inj) 10 mg IVP Q6H PRN PRN Reason: SBP > 160 or DBP > 100 Last Admin: 07/28/19 05:17 Dose: 10 mg Insulin Aspart (Novolog) 1 - 5 unit SUBQ 0800,1200,1700,2100 [facility]; Protocol Insulin Human NPH (Humulin N) 30 unit SUBQ BID [facility] Last Admin: 07/28/19 09:31 Dose: 30 unit Losartan Potassium (Cozaar) 100 mg PO DAILY [facility] Last Admin: 07/28/19 08:36 Dose: 100 mg Metoclopramide HCl (Reglan) 10 mg PO ACHS [facility] Last Admin: 07/28/19 06:06 Dose: 10 mg Ondansetron HCl (Zofran Inj) 4 mg IVP Q4HR PRN PRN Reason: Nausea / Vomiting Last Admin: 07/27/19 03:00 Dose: 4 mg Ondansetron HCl (Zofran Odt) 4 mg TL Q4HR PRN PRN Reason: Nausea / Vomiting Last Admin: 07/25/19 08:28 Dose: 4 mg Pantoprazole Sodium (Protonix) 40 mg PO QDAC [facility] Polyethylene Glycol (Miralax) 17 gm PO DAILY [facility] Last Admin: 07/28/19 08:36 Dose: 17 gm Prochlorperazine Edisylate (Compazine Inj) 10 mg IVP Q4HR PRN PRN Reason: Nausea / Vomiting Last Admin: 07/28/19 05:16 Dose: 10 mg Senna (Senokot) 8.6 - 17.2 mg PO DAILY [facility] Last Admin: 07/28/19 08:29 Dose: 17.2 mg Sodium Chloride (Normal Saline Flush 0.9%) 10 ml IVP PRN PRN PRN Reason: NEEDED PER PROVIDER ORDERS Last Admin: 07/28/19 05:56 Dose: 10 ml Sodium Chloride (Normal Saline Flush 0.9%) 10 ml IVP 0100,0900,1700 [facility] Last Admin: 07/28/19 01:12 Dose: Not Given Sodium Chloride (Normal Saline Flush 0.9%) 20 ml IVP PRN PRN PRN Reason: After Blood Draw Last Admin: 07/28/19 05:53 Dose: 20 ml Tamsulosin HCl (Flomax) 0.4 mg PO DAILY [facility] Last Admin: 07/28/19 08:31 Dose: 0.4 mg Atorvastatin Calcium 40 mg PO QPM 06/09/19 Insulin Regular Human [NovoLIN R] 2 - 10 unit SUBQ TIDWM 06/09/19 Omeprazole 20 mg PO QDAC 06/09/19 Tamsulosin [Flomax] 0.4 mg PO DAILY 06/09/19 Insulin NPH Human [Humulin N] 35 unit SUBQ BID 06/10/19 Losartan [Cozaar] 50 mg PO DAILY 07/22/19 Metoclopramide [Reglan] 10 mg PO Q6H PRN 07/22/19 Objective - Vital Signs/Intake & Output Reviewed Vital Signs: Yes Vital Signs: Vital Signs x48h Temp Pulse Pulse Resp BP BP BP 07/28/19 07:40 36.4 C L 83 20 175/109 H 07/28/19 06:35 84 118/62 05/01/20 06:20 83 114/63 07/28/19 06:07 83 133/69 H 07/28/19 06:00 80 113/51 L 07/28/19 05:53 80 110/50 L 07/28/19 05:47 120/56 L 07/28/19 05:45 82 120/56 L 07/28/19 05:40 83 132/64 H 07/28/19 05:32 83 189/86 H 07/28/19 05:20 87 201/99 H 07/28/19 05:17 201/99 H 07/28/19 05:00 37.0 C 87 16 191/99 H Pulse Ox 07/28/19 07:40 96 07/28/19 06:35 07/28/19 06:20 07/28/19 06:07 07/28/19 06:00 07/28/19 05:53 07/28/19 05:47 07/28/19 05:45 07/28/19 05:40 07/28/19 05:32 07/28/19 05:20 07/28/19 05:17 07/28/19 05:00 98 Intake & Output: Intake & Output 07/25/19 07/26/19 07/27/19 07/28/19 23:59 23:59 23:59 23:59 Intake Total 5123.234 3543.930 1486.28 640 Output Total 2950 2625 2300 1800 Balance 2173.234 918.930 -813.72 -1160 - Objective General Appearance: positive: No acute distress, Alert Eyes Bilateral: positive: Normal inspection Neck: positive: Nml inspection Respiratory: positive: No respiratory distress. negative: Wheezes, Rales Cardiovascular: positive: Regular rate & rhythm, No murmur. negative: Tachycardia, Systolic murmur Abdomen: positive: Non-tender, Nml bowel sounds, No distention. negative: Tenderness, Guarding, Rebound Skin: positive: Warm, Dry Extremities: positive: Full ROM, Pedal edema (Trace pitting edema in right lower extremity.) Neurologic/Psychiatric: positive: Oriented x3. negative: Disoriented to person, Disoriented to place, Disoriented to time - Lab Results Fish Bones: 07/28/19 06:00 07/28/19 06:00 Other Labs: Lab Results x24hrs 07/28/19 07/28/19 07/28/19 Range/Units 09:30 07:40 06:00 WBC (4.8-10.8) x10^3/uL RBC (4.70-6.10) 10^6/uL Hgb (14.0-18.0) g/dL Hct (42.0-52.0) % MCV (80.0-94.0) fL MCH (27.0-31.0) pg MCHC (32.0-36.0) g/dL RDW (12.0-15.0) % Plt Count (130-450) 10^3/uL MPV (7.4-11.4) fL Neut # (Auto) (1.5-6.6) 10^3/uL Lymph # (Auto) (1.5-3.5) 10^3/uL [place] # (Auto) (0.0-1.0) 10^3/uL Eos # (Auto) (0.0-0.7) 10^3/uL Baso # (Auto) (0.0-0.1) 10^3/uL Absolute Nucleated RBC x10^3/uL Nucleated RBC % /100WBC Sodium 137 (135-145) mmol/L Potassium 3.2 L (3.5-5.0) mmol/L Chloride 104 (101-111) mmol/L Carbon Dioxide 25 (21-32) mmol/L Anion Gap 8.0 (6-13) BUN 20 (6-20) mg/dL Creatinine 1.1 (0.6-1.2) mg/dL Estimated GFR (MDRD) 68 L (>89) Glucose 129 H (70-100) mg/dL POC Whole Bld Glucose 116 H 111 H (70 - 100) mg/dL Calcium 7.9 L (8.5-10.3) mg/dL Phosphorus 3.1 (2.5-4.6) mg/dL Magnesium 1.9 (1.7-2.8) mg/dL Troponin I High Sens (2.3-19.7) ng/L 07/28/19 07/28/19 07/28/19 Range/Units 06:00 05:15 04:56 WBC 4.8 (4.8-10.8) x10^3/uL RBC 3.57 L (4.70-6.10) 10^6/uL Hgb 11.4 L (14.0-18.0) g/dL Hct 32.7 L (42.0-52.0) % MCV 91.6 (80.0-94.0) fL MCH 31.9 H (27.0-31.0) pg MCHC 34.9 (32.0-36.0) g/dL RDW 12.5 (12.0-15.0) % Plt Count 148 (130-450) 10^3/uL MPV 9.9 (7.4-11.4) fL Neut # (Auto) 3.5 (1.5-6.6) 10^3/uL Lymph # (Auto) 0.7 L (1.5-3.5) 10^3/uL [place] # (Auto) 0.5 (0.0-1.0) 10^3/uL Eos # (Auto) 0.1 (0.0-0.7) 10^3/uL Baso # (Auto) 0.0 (0.0-0.1) 10^3/uL Absolute Nucleated RBC 0.00 x10^3/uL Nucleated RBC % 0.0 /100WBC Sodium (135-145) mmol/L Potassium (3.5-5.0) mmol/L Chloride (101-111) mmol/L Carbon Dioxide (21-32) mmol/L Anion Gap (6-13) BUN (6-20) mg/dL Creatinine (0.6-1.2) mg/dL Estimated GFR (MDRD) (>89) Glucose (70-100) mg/dL POC Whole Bld Glucose 85 74 (70 - 100) mg/dL Calcium (8.5-10.3) mg/dL Phosphorus (2.5-4.6) mg/dL Magnesium (1.7-2.8) mg/dL Troponin I High Sens (2.3-19.7) ng/L 07/28/19 07/27/19 07/27/19 Range/Units 04:37 20:14 16:29 WBC (4.8-10.8) x10^3/uL RBC (4.70-6.10) 10^6/uL Hgb (14.0-18.0) g/dL Hct (42.0-52.0) % MCV (80.0-94.0) fL MCH (27.0-31.0) pg MCHC (32.0-36.0) g/dL RDW (12.0-15.0) % Plt Count (130-450) 10^3/uL MPV (7.4-11.4) fL Neut # (Auto) (1.5-6.6) 10^3/uL Lymph # (Auto) (1.5-3.5) 10^3/uL [place] # (Auto) (0.0-1.0) 10^3/uL Eos # (Auto) (0.0-0.7) 10^3/uL Baso # (Auto) (0.0-0.1) 10^3/uL Absolute Nucleated RBC x10^3/uL Nucleated RBC % /100WBC Sodium (135-145) mmol/L Potassium (3.5-5.0) mmol/L Chloride (101-111) mmol/L Carbon Dioxide (21-32) mmol/L Anion Gap (6-13) BUN (6-20) mg/dL Creatinine (0.6-1.2) mg/dL Estimated GFR (MDRD) (>89) Glucose (70-100) mg/dL POC Whole Bld Glucose 56 L* 175 H 140 H (70 - 100) mg/dL Calcium (8.5-10.3) mg/dL Phosphorus (2.5-4.6) mg/dL Magnesium (1.7-2.8) mg/dL Troponin I High Sens (2.3-19.7) ng/L 07/27/19 07/27/19 07/27/19 Range/Units 13:20 12:08 09:15 WBC (4.8-10.8) x10^3/uL RBC (4.70-6.10) 10^6/uL Hgb (14.0-18.0) g/dL Hct (42.0-52.0) % MCV (80.0-94.0) fL MCH (27.0-31.0) pg MCHC (32.0-36.0) g/dL RDW (12.0-15.0) % Plt Count (130-450) 10^3/uL MPV (7.4-11.4) fL Neut # (Auto) (1.5-6.6) 10^3/uL Lymph # (Auto) (1.5-3.5) 10^3/uL [place] # (Auto) (0.0-1.0) 10^3/uL Eos # (Auto) (0.0-0.7) 10^3/uL Baso # (Auto) (0.0-0.1) 10^3/uL Absolute Nucleated RBC x10^3/uL Nucleated RBC % /100WBC Sodium (135-145) mmol/L Potassium (3.5-5.0) mmol/L Chloride (101-111) mmol/L Carbon Dioxide (21-32) mmol/L Anion Gap (6-13) BUN (6-20) mg/dL Creatinine (0.6-1.2) mg/dL Estimated GFR (MDRD) (>89) Glucose (70-100) mg/dL POC Whole Bld Glucose 142 H (70 - 100) mg/dL Calcium (8.5-10.3) mg/dL Phosphorus (2.5-4.6) mg/dL Magnesium (1.7-2.8) mg/dL Troponin I High Sens 158.6 H* 177.3 H* (2.3-19.7) ng/L ABX Reporting Has patient been on IV antibiotics over the past 48 hours?: No Assessment/Plan - Problem List (1) Intractable nausea and vomiting Impression: Continues to have further episodes of vomiting and poor oral intake. His abdominal exam is benign with no tenderness, guarding, rebound tenderness. EKG yesterday did not show any acute abnormalities. 2 troponins were rechecked and they were trending down since the NSTEMI so I do not think this is related to his cardiac event. Abdominal x-ray did not show a pattern of obstruction. This may potentially be secondary to his gastroparesis but other etiologies will need to be ruled out. We will continue him on scheduled Reglan IV and Zofran as needed. Discontinue Compazine to reduce risk of side effects given he is on scheduled Reglan. Will obtain a right upper quadrant ultrasound for further evaluation. We will consider a CT of the abdomen and pelvis with oral contrast although given his benign abdominal exam, I do not suspect this will be of much yield and therefore we will hold off unless his symptoms persist. Continues to have emesis and he is unable to tolerate oral intake despite this work-up, we may need to consider transferring him for an endoscopy as he would be too high of a risk at this facility given his recent NSTEMI. Given his inability to consistently tolerate oral intake, he would not be safe to discharge home at this time. (2) NSTEMI (non-ST elevated myocardial infarction) Impression: He was treated with 48 hours of anticoagulation with heparin. Echocardiogram did not show any wall motion abnormalities and ejection fraction is preserved. Repeat EKG yesterday did not show any acute normality's and his troponin continues to trend down. We will continue him on aspirin, statin, carvedilol. He will need outpatient follow-up with cardiology in [place] on discharge. (3) Hypertension Impression: His carvedilol was increased 25 mg yesterday as well as his losartan to 100 mg daily. He still remains hypertensive at times and therefore we will add amlodipine 5 mg daily. We will continue to monitor his blood pressure while he is hospitalized. Qualifiers: Hypertension type: essential hypertension Qualified Code(s): I10 - Essential (primary) hypertension (4) IDDM (insulin dependent diabetes mellitus) Impression: He was hypoglycemic overnight with a blood glucose in the 50s and at that time he was symptomatic given his diaphoresis. His blood glucose has since improved and is now above 100. Given his poor and inconsistent oral intake due to his nausea and vomiting, we will decrease his NPH to 30 units twice daily and decrease the strength of his sliding scale. (5) Gastroparesis diabeticorum Impression: This may potentially be contributing to his nausea and vomiting. He is on scheduled Reglan and Zofran as needed. If the ultrasound is unremarkable, we can consider gastric emptying study or a delayed CT abdomen pelvis with oral contrast. Gastric imaging study may be difficult to obtain at this facility given we do not have nuclear medicine regularly available. Continue with scheduled reglan and zofran as needed. (6) Acute kidney injury Impression: This has resolved. This was secondary to acute urinary retention. Continue to monitor renal function while hospitalized. (7) GERD (gastroesophageal reflux disease) Impression: Stable. Continue Protonix and Tums as needed. (8) BPH (benign prostatic hyperplasia) Impression: Stable. Continue Flomax.
[2019-07-28 10:18] LABS: HB2 TOTAL 11.8 g/dL; HEMOGLOBIN A1C 0.8 g/dL; HEMOGLOBIN A1C % 8.4 % (4.6-6.2)
[2019-07-28] MEDS: METOCLOPRAMIDE 10 MG/2 ML VIAL IVP SCH ×3 (11:58→23:49)
--- NOTE | 2019-07-28 14:10 | Discharge Plan ---
Discharge Plan Problem Reviewed?: Yes Disposition: Home, Self Care Condition: Good Prescriptions: Ondansetron Odt [Zofran Odt] 4 mg TL Q4HR PRN #20 tablet PRN Reason: Nausea / Vomiting amLODIPine [Norvasc] 5 mg PO DAILY #30 tablet Aspirin [Aspirin EC] 81 mg PO DAILY #30 tablet. Atorvastatin Calcium [Lipitor] 80 mg PO QPM #30 tablet Losartan Potassium 100 mg PO DAILY #30 tablet Metoclopramide [Reglan] 10 mg PO Q6H PRN #30 tablet PRN Reason: Nausea / Vomiting Pantoprazole [Protonix] 40 mg PO QDAC #30 tablet Senna [Senokot] 8.6 mg PO DAILY PRN #14 tablet PRN Reason: Constipation Diet: Diabetic Activity Restrictions: Activity as Tolerated Shower Restrictions: No Driving Restrictions: No Instruction Topics: Gastroparesis, COVID-19 [facility], COVID-19 [facility] Department Statement Health Concerns: You were initially admitted to the hospital due to nausea vomiting that would not be relieved with medications in the emergency department. Your blood pressure was also quite elevated when you were seen in the emergency department. Your blood sugars had also become elevated. You were treated with insulin subcutaneous as well as nausea medications through an IV. Unfortunately her symptoms persisted and your blood sugars became quite labile. They increased to over 400 and you went into what is called diabetic ketoacidosis which is when acid buildup in your body due to elevated blood sugars. You required to be transferred to the intensive care unit for insulin through an IV. Your kidney numbers had also increased and this was likely due to dehydration. He then developed heartburn that was not relieved with medications meant for heartburn. We performed a cardiac work-up which showed your heart numbers had increased to significant amount that were suggestive of a heart attack. We obtain ultrasound of your heart which did not show any acute abnormalities. You were treated with a blood thinner for 2 days and started on medications for your heart. We did call the heart doctors at [facility] in [place] who felt that he did not need to be transferred for further intervention but recommended outpatient follow-up which has been set up for you. You remained in the hospital even after being treated for this heart attack due to persistent nausea and vomiting. It is felt that this is likely due to gastroparesis. Please take the nausea medications as prescribed. It is highly encouraged that you follow-up with your primary care provider and they recommended that you be referred to a chief supply chain officer for further evaluation of your persistent nausea and vomiting. Plan of Treatment: Continue to take your carvedilol 25 mg twice daily as you had previously been taking. Your losartan dose has been increased to 100 mg daily. You were also provided with a new medication called amlodipine. Please take 5 mg daily. All 3 of these medications are to help treat your blood pressure. You also sent a prescription for aspirin which you need to take given your heart attack during this hospital. You were previously taking Lipitor 40 mg but you were written a new prescription for 80 mg given the heart attack. You can continue to take nausea medication such as Reglan and Zofran as needed. There were no changes made to your insulin regimen. Care Goals: It is crucial that you follow-up with your pump house operator as mentioned below given the heart attack he had during his hospital. You may need a stress test or an angiogram to evaluate for heart disease. Please follow-up with your primary care provider within 1 week as well. Please ask to be referred to a chief supply chain officer given your persistent nausea and vomiting which is chronic. Assessment: Patient expressed understanding of the treatment plan and goals of care. Additional Instructions or Follow Up instructions: Follow-up with Dr. Rivers who is a pump house operator at [facility]. Your appointment is at 1:30 PM on August 01. The phone number for the clinic is . The address is [address] [place] [id number] No Smoking: If you smoke, Please STOP! Call for help. Follow-up with: Lena Kirkland ARNP [Primary Care Provider] -
--- NOTE | 2019-07-28 15:37 | Ultrasound Report ---
Reason: Persistent nausea, vomiting. Procedure Date: 07/28/2019 Accession Number: [id number] / [id number] Procedure: US - Abdomen Complete CPT Code: Final Report FULL RESULT: EXAM: ABDOMEN ULTRASOUND EXAM DATE: 07/28/2019 11:00 AM. CLINICAL HISTORY: Persistent nausea, vomiting. COMPARISON: None. TECHNIQUE: Real-time scanning was performed with static images obtained. FINDINGS: Liver: Normal in size and echotexture. Main portal vein flow: Hepatopetal. Gallbladder: There is echogenic material, possibly sludge or nonshadowing stones within the gallbladder. No evidence of gallbladder wall thickening. Negative sonographic Henderson sign. Biliary System: Common bile duct measures 5 mm. No intrahepatic or extrahepatic ductal dilatation. Pancreas: The pancreas is not seen. Kidneys: Right: 11.9 cm longitudinally. Normal. No contour-deforming mass, stones, or hydronephrosis. Left: 12.7 cm longitudinally. Normal. No contour-deforming mass, stones, or hydronephrosis. Spleen: 13.4 cm. There is mild splenomegaly. Aorta and Inferior Vena Cava: No acute abnormalities. Other: None. IMPRESSION: 1. Small amounts of echogenic material within the gallbladder may represent sludge or possibly small nonshadowing stones. There is no evidence of shadowing stone, gallbladder wall thickening, or sonographic Henderson sign. 2. There is no intra-or extrahepatic bile duct dilatation. 3. The kidneys demonstrate no stones or hydronephrosis. 4. There is mild splenomegaly. [facility]
--- NOTE | 2019-07-28 17:31 | DISCHARGE SUMMARY ---
"Discharge Summary Admit Date: 07/21/19 Discharge Date: 07/29/19 Discharging Provider: Esau Gamez Primary Care Provider: Lena Kirkland Code Status: Attempt Resuscitation Condition at Discharge: Good Discharge Disposition: 01 Home, Self Care - DIAGNOSES Admission Diagnoses: Malignant hypertension Intractable nausea and vomiting Gastroparesis Diabetes Hyperlipidemia BPH GERD Discharge Diagnoses with Status of Each Condition: Nausea and vomiting - stable. This is chronic for him and is back to baseline. He will continue with Reglan and Zofran as needed. It is highly recommended that he follow-up with his primary care provider and be referred to gastroenterology as you benefit from a gastric emptying study as likely has gas troparesis. NSTEMI - resolved. This was treated medically during the hospitalization. An echocardiogram showed a preserved ejection fraction without any wall motion abnormalities. He has scheduled follow-up with cardiology at [facility], [place]. Hypertension - stable. Blood pressure is now under control. He will continue his home carvedilol dose but his losartan was increased to 100 mg daily and he was also started on amlodipine 5 mg daily. Insulin-dependent diabetes mellitus - stable. His blood sugars were labile during his hospitalization required IV insulin at times. He did have one ep isode of hypoglycemia but this was when his oral intake was poor due to nausea and vomiting. His blood sugars have remained stable on his home insulin of 35 units of NPH twice daily. There were no changes made to his insulin regimen. It is recommended he follow-up with his primary care provider. Gastroparesis - stable. Plan as mentioned above for nausea and vomiting. Acute kidney injury - resolved. Secondary to acute urinary retention. GERD - stable. he will continue his home Protonix. BPH - stable. Continue Flomax. Urinary retention - resolved. - HPI History of Present Illness: H&P per Dr. Shoemaker on 07/21/19: Patient is a 63-year-old male with history of diabetes mellitus and gastroparesis as a result, who presented to the ED with complaint of intractable nausea and vomiting. It appears that it has been going on for the past 3 to 4 days intermittently. In the ED today he received 3 doses of IV anti-emetics with no improvement in his symptoms. As a result of the nausea and vomiting he has not been able to keep his home medications down. Consequently his blood pressure was as high as 240/160 in the ED. He was also given 2 doses of IV antihypertensives with no significant improvement in his blood pressure. As a result he was presented for admission. At bedside he appears more comfortable. He denies chest pain, dyspnea, abdominal pain, fever or chills. - CONSULTS | PROCEDURES Consultations: Nutrition, Scientific Research Associate. Procedures: Cardiogram showed mild to moderate concentric LVH with normal wall motion. Ejection fraction 70%. Mild diastolic dysfunction. Left atrium is normal in size. No valvular disease. - HOSPITAL COURSE Hospital Course: Patient was admitted to the medical floor for intractable nausea and vomiting embolism and hypertension. Given his nausea and vomiting usually with IV antihypertensives with improvement in his blood pressure. It was felt that his hypotension was related to his cyclical vomiting. He was treated with Reglan IV and Zofran IV as needed. Blood pressure continues to fluctuate and he was started on a clonidine patch. His blood pressure then improved to the 130s systolic. We will continue to treat his nausea and vomiting with Zofran, Compazine, lorazepam. On hospital day 3, symptoms improved and we attempted to resume oral medications. During this time. His blood sugars have been labile. His blood glucose 425 on admission he was treated with subcutaneous insulin and high-dose sliding scale. Hospital day 3, his blood glucose to increase to over 450 and had an anion gap of 16. He was transferred to the intensive care unit for insulin drip. The insulin drip was discontinued the following day but later that evening, his blood glucose had risen to over 650. He was then once again placed on insulin drip. He also had acute kidney injury which were attributed to acute urinary retention secondary to his BPH. He had been off of his Flomax for over a week prior to admission. Multiple bladder scans revealed retention with over 800 mL of urine. He required to be straight catheterized multiple times. His Flomax was resumed and his renal function improved. He is now able to urinate on his own and his renal function is back to baseline. On hospital day 4, the patient complained of heartburn that was not relieved with Protonix and Tums. An EKG was obtained which was unremarkable but troponin was checked which was elevated over 100. This eventually increased to nearly 1200. This was consistent with a NSTEMI and so he was started on heparin. He wa s given full dose aspirin and started on a baby aspirin daily. The patella was increased to 80 mg and his home carvedilol was continued. A call was made out to the commercial credit officer at [facility] in [place] to discuss the need for transfer. It was felt that given his EKG did not show any acute abnormalities, that this could be medically managed and followed up on outpatient basis. Repeat EKG did show flattening of T waves in V4 to V6. This was once again discussed with cardiology but they felt that as long as he did not have ongoing chest pain, there was no need for transfer. Echocardiogram was obtained which showed ejection fraction of 70% with no wall motion abnormalities. Patient was ultimately discharged 48 hours after completing anticoagulation for the NSTEMI. His discharge was delayed due to's ongoing nausea and vomiting. This is likely due to his gastroparesis and is chronic in nature for him. He is now able to tolerate his medications and keep down a diet. He was asked to follow-up with his primary care provider and to be referred to a gravity prospecting observer. He has been scheduled a follow-up appointment with Dr. Rivers of cardiology at [facility], [place] on August 01 at 1:30 PM. - ALLERGIES Allergies/Adverse Reactions: Allergies Allergy/AdvReac Type Severity Reaction Status Date / Time No Known Drug Allergies Allergy Verified 07/21/19 21:08 - MEDICATIONS Home Medications: Ambulatory Orders Medication Instructions Recorded Confirmed Insulin Regular Human [NovoLIN R] 2 - 10 unit SUBQ TIDWM 06/09/19 07/22/19 Omeprazole 20 mg PO QDAC 06/09/19 07/22/19 Tamsulosin [Flomax] 0.4 mg PO DAILY 06/09/19 07/22/19 Insulin NPH Human [Humulin N] 35 unit SUBQ BID 06/10/19 07/22/19 Carvedilol [Coreg] 25 mg PO BID #60 tablet 06/14/19 07/22/19 Aspirin [Aspirin EC] 81 mg PO DAILY #30 tablet. 07/28/19 Atorvastatin Calcium [Lipitor] 80 mg PO QPM #30 tablet 07/28/19 Losartan Potassium 100 mg PO DAILY #30 tablet 07/28/19 Metoclopramide [Reglan] 10 mg PO Q6H PRN #30 tablet 07/28/19 Ondansetron Odt [Zofran Odt] 4 mg TL Q4HR PRN #20 tablet 07/28/19 Pantoprazole [Protonix] 40 mg PO QDAC #30 tablet 07/28/19 Senna [Senokot] 8.6 mg PO DAILY PRN #14 tablet 07/28/19 amLODIPine [Norvasc] 5 mg PO DAILY #30 tablet 07/28/19 - PHYSICAL EXAM AT DISCHARGE General Appearance: positive: No acute distress, Alert Eyes Bilateral: positive: Normal inspection ENT: positive: ENT inspection nml Neck: positive: Nml inspection Respiratory: positive: No respiratory distress. negative: Wheezes, Rales, Rhonchi Cardiovascular: positive: Regular rate & rhythm, No murmur. negative: Tachycardia, Bradycardia Abdomen: positive: Non-tender, No distention. negative: Tenderness, Guarding, Rebound Skin: positive: No rash, Warm, Dry Extremities: positive: Full ROM, Pedal edema (Trace in right lower extremity.) Neurologic/Psychiatric: positive: Oriented x3. negative: Disoriented to person, Disoriented to place, Disoriented to time - LABS Result Diagrams: 07/29/19 05:20 07/29/19 05:20 - DIAGNOSTIC IMAGING Diagnostic Imaging Results: Final report reviewed - FOLLOW UP Follow Up: He was asked to follow-up with his primary care provider within 1 week and asked to be referred to gastroenterology for his gastroparesis. He was referred to cardiology and appointment has made for him on August 01 at 1:[address] Rivers of cardiology at [facility], [place]. - TIME SPENT Time Spent in Discharge (Minutes): 35"
[2019-07-28] MEDS: ATORVASTATIN 40 MG TABLET PO SCH (20:11)
[2019-07-29] MEDS: METOCLOPRAMIDE 10 MG/2 ML VIAL IVP SCH (05:32)
[2019-07-29 05:51] LABS: BASOPHILS % (AUTO) 0.2 %; EOSINOPHILS # (AUTO) 0.1 10^3/uL (0.0-0.7); EOSINOPHILS % (AUTO) 1.9 %; HGB - HEMOGLOBIN 11.4 g/dL (14.0-18.0); LYMPHOCYTES # (AUTO) 0.8 10^3/uL (1.5-3.5); LYMPHOCYTES % (AUTO) 15.5 %; MEAN CORPUSCULAR HEMOGLOBIN 30.6 pg (27.0-31.0); MEAN CORPUSCULAR HGB CONC 33.9 g/dL (32.0-36.0); MEAN CORPUSCULAR VOLUME 90.3 fL (80.0-94.0); MEAN PLATELET VOLUME 9.7 fL (7.4-11.4); MONOCYTES # (AUTO) 0.6 10^3/uL (0.0-1.0); MONOCYTES % (AUTO) 11.9 %; NEUTROPHILS # (AUTO) 3.7 10^3/uL (1.5-6.6); NEUTROPHILS % (AUTO) 70.3 %; PLT - PLATELET COUNT 153 10^3/uL (130-450); RED BLOOD COUNT 3.72 10^6/uL (4.70-6.10); RED CELL DISTRIBUTION WIDTH 12.5 % (12.0-15.0); WHITE BLOOD COUNT 5.3 x10^3/uL (4.8-10.8)
[2019-07-29 06:05] LABS: CALCIUM 8.2 mg/dL (8.5-10.3); MAGNESIUM 1.9 mg/dL (1.7-2.8); PHOSPHORUS 2.9 mg/dL (2.5-4.6)
[2019-07-29] MEDS: METOCLOPRAMIDE 10 MG TABLET PO SCH (06:22)
[2019-07-29] MEDS ORDERED: PANTOPRAZOLE 40 MG TABLET PO SCH (07:00)
[2019-07-29 08:47] VITALS: BP 177/88
[2019-07-29] MEDS: INSULIN ASPART 300 UNIT/3 ML PEN SUBQ SCH (08:51)
[2019-07-29] MEDS: INSULIN NPH HUMAN 300 UNIT/3 ML VIAL SUBQ SCH (08:51)
[2019-07-29] MEDS: carvediloL 12.5 MG TABLET PO SCH (08:54)
[2019-07-29] MEDS: amLODIPine 5 MG TABLET PO SCH (08:54)
[2019-07-29] MEDS: ASPIRIN EC 81 MG TABLET PO SCH (08:54)
[2019-07-29] MEDS: LOSARTAN 50 MG TABLET PO SCH (08:54)
[2019-07-29] MEDS: polyethylene glycoL 3350 17 GM PACKET PO SCH (08:55)
[2019-07-29] MEDS: SENNA 8.6 MG TABLET PO SCH ×2 (08:55)
[2019-07-29] MEDS: DOCUSATE SODIUM 250 MG CAPSULE PO SCH ×2 (08:55)
[2019-07-29] MEDS: TAMSULOSIN 0.4 MG CAPSULE PO SCH (08:55)
[2019-07-29] MEDS: SODIUM CHLORIDE FLUSH 0.9% 10 ML SYRINGE IVP SCH (08:56)
== END 2019-07-29 10:27 | disposition home or self-care (01) | DRG 280 ==
LOC: EDUNIT# → ED 20:54 → MS2 22:35 → ICU 07-23 09:12 → MS2 07-27 14:53
PROVIDERS: ADMIT Internal Medicine; ATTEND Internal Medicine
PROC: 02HV33Z Insertion of Infusion Device into Superior Vena Cava, Percutaneous Approach (ICD-10-PCS; principal; 2019-07-23)
DX: I10 Essential (primary) hypertension (principal); E10.69 Type 1 diabetes mellitus with other specified complication; R11.2 Nausea with vomiting, unspecified; E78.00 Pure hypercholesterolemia, unspecified; I21.4 Non-ST elevation (NSTEMI) myocardial infarction; F17.200 Nicotine dependence, unspecified, uncomplicated; N40.0 Benign prostatic hyperplasia without lower urinary tract symptoms; E11.10 Type 2 diabetes mellitus with ketoacidosis without coma; N17.9 Acute kidney failure, unspecified; E11.43 Type 2 diabetes mellitus with diabetic autonomic (poly)neuropathy; K31.84 Gastroparesis; E11.649 Type 2 diabetes mellitus with hypoglycemia without coma; N40.1 Benign prostatic hyperplasia with lower urinary tract symptoms; R33.8 Other retention of urine; K21.9 Gastro-esophageal reflux disease without esophagitis; E78.5 Hyperlipidemia, unspecified; Z72.89 Other problems related to lifestyle; T45.0X6A Underdosing of antiallergic and antiemetic drugs, initial encounter; T46.5X6A Underdosing of other antihypertensive drugs, initial encounter; Z91.138 Patient's unintentional underdosing of medication regimen for other reason; Z79.4 Long term (current) use of insulin
CPT/HCPCS: 36415; 71045; 74018; 76700; 80048; 80053; 81001; 82009; 82040; 82803; 82947; 83036; 83690; 83735; 83880; 84100; 84132; 84484; 85025; 85027; 85520; 87040; 87150; 93005; 93306; 93971; 96361; 96374; 96375; 99285; A9270; J1815; J2060; J2765; J7040; Q0162; 80320; 81003; 87086

== ENCOUNTER 2019-12-06 14:28 | Inpatient (IN) | payer MEDICARE ==
--- NOTE | 2019-12-06 15:25 | ED Physician Documentation ---
History of Present Illness - Stated complaint Stated Complaint: LT FT WOUND - Chief complaint Chief Complaint: Ext Problem - Additonal information Additional information: Erroneously created 2 documents. Please see the later document created for the same day PD PAST MEDICAL HISTORY - Past Medical History Cardiovascular: Hypertension, High cholesterol Respiratory: None Neuro: None Endocrine/Autoimmune: Type 1 diabetes GI: GERD : Benign prostate hypertrophy HEENT: None Psych: None Musculoskeletal: Gout Derm: None - Past Surgical History Past Surgical History: Yes General: Appendectomy Ortho: Amputation, Other - Present Medications Home Medications: Ambulatory Orders Medication Instructions Recorded Confirmed Insulin Regular Human [NovoLIN R] 2 - 10 unit SUBQ TIDWM 06/09/19 12/06/19 Omeprazole 20 mg PO QDAC 06/09/19 12/06/19 Tamsulosin [Flomax] 0.4 mg PO DAILY 06/09/19 12/06/19 Insulin NPH Human [Humulin N] 35 unit SUBQ BID 06/10/19 12/06/19 Carvedilol [Coreg] 25 mg PO BID #60 tablet 06/14/19 12/06/19 Aspirin [Aspirin EC] 81 mg PO DAILY #30 tablet. 07/28/19 12/06/19 Atorvastatin Calcium [Lipitor] 80 mg PO QPM #30 tablet 07/28/19 12/06/19 Losartan Potassium 100 mg PO DAILY #30 tablet 07/28/19 12/06/19 Metoclopramide [Reglan] 10 mg PO Q6H PRN #30 tablet 07/28/19 12/06/19 Ondansetron Odt [Zofran Odt] 4 mg TL Q4HR PRN #20 tablet 07/28/19 12/06/19 Pantoprazole [Protonix] 40 mg PO QDAC #30 tablet 07/28/19 12/06/19 Senna [Senokot] 8.6 mg PO DAILY PRN #14 tablet 07/28/19 12/06/19 amLODIPine [Norvasc] 5 mg PO DAILY #30 tablet 07/28/19 12/06/19 Cephalexin [Keflex] 500 mg PO BID 12/06/19 12/06/19 - Allergies Allergies/Adverse Reactions: Allergies Allergy/AdvReac Type Severity Reaction Status Date / Time No Known Drug Allergies Allergy Verified 12/06/19 14:42 - Social History Does the pt smoke?: Yes Smoking Status: Current some day smoker Does the pt drink ETOH?: No Does the pt have substance abuse?: Yes - Immunizations Immunizations are current?: Yes - POLST Patient has POLST: No POLST Status: Full Code Results - Vitals Vitals: Vital Signs - 24 hr 12/06/19 14:36 Temperature 37.2 C Heart Rate 85 Respiratory 18 Rate Blood Pressure 158/83 H O2 Saturation 100 Oxygen O2 Source Room air - Labs Labs: Laboratory Tests 12/06/19 15:35 WBC 6.6 RBC 4.23 L Hgb 13.1 L Hct 38.6 L MCV 91.3 MCH 31.0 MCHC 33.9 RDW 12.2 Plt Count 406 MPV 9.1 Neut # (Auto) 5.3 Lymph # (Auto) 0.7 L [place] # (Auto) 0.3 Eos # (Auto) 0.2 Baso # (Auto) 0.0 Absolute Nucleated RBC 0.00 Nucleated RBC % 0.0
--- NOTE | 2019-12-06 15:38 | ED Physician Documentation ---
History of Present Illness - Stated complaint Stated Complaint: LT FT WOUND - Chief complaint Chief Complaint: Ext Problem - Additonal information Additional information: 64-year-old male presents to the emergency department at the behest of the [facility] clinic in order to receive an MRI of his left foot. Per patient she had he has a chronic nonhealing wound of that left foot. It has been present for about 5 years but over the course of the pandemic it has acutely worsened. His wounds have been cleaned and addressed by [facility] however in order to obtain an outpatient MRI the wait time was approximately 3 weeks therefore they advised him to try to come to the ER. Patient currently taking Keflex 500 mg twice a day for 10 days this was prescribed by his primary care provider Patient is a frustrated historian and does not want to answer lots of questions. In point he denies fevers chest pain or dyspnea. Review of Systems Constitutional: denies: Fever Cardiac: reports: Pedal edema. denies: Chest pain / pressure, Palpitations, Calf pain Respiratory: denies: Dyspnea GI: reports: Reviewed and negative : reports: Reviewed and negative. denies: Dysuria, Frequency, Hesitancy Skin: reports: Lesions (left foot wound) Musculoskeletal: reports: Reviewed and negative Neurologic: reports: Reviewed and negative PD PAST MEDICAL HISTORY - Past Medical History Cardiovascular: Hypertension, High cholesterol Respiratory: None Neuro: None Endocrine/Autoimmune: Type 1 diabetes GI: GERD : Benign prostate hypertrophy HEENT: None Psych: None Musculoskeletal: Gout Derm: None - Past Surgical History Past Surgical History: Yes General: Appendectomy Ortho: Amputation, Other - Present Medications Home Medications: Ambulatory Orders Medication Instructions Recorded Confirmed Insulin Regular Human [NovoLIN R] 2 - 10 unit SUBQ TIDWM 06/09/19 12/06/19 Omeprazole 20 mg PO QDAC 06/09/19 12/06/19 Tamsulosin [Flomax] 0.4 mg PO DAILY 06/09/19 12/06/19 Insulin NPH Human [Humulin N] 35 unit SUBQ BID 06/10/19 12/06/19 Carvedilol [Coreg] 25 mg PO BID #60 tablet 06/14/19 12/06/19 Aspirin [Aspirin EC] 81 mg PO DAILY #30 tablet. 07/28/19 12/06/19 Atorvastatin Calcium [Lipitor] 80 mg PO QPM #30 tablet 07/28/19 12/06/19 Losartan Potassium 100 mg PO DAILY #30 tablet 07/28/19 12/06/19 Metoclopramide [Reglan] 10 mg PO Q6H PRN #30 tablet 07/28/19 12/06/19 Ondansetron Odt [Zofran Odt] 4 mg TL Q4HR PRN #20 tablet 07/28/19 12/06/19 Pantoprazole [Protonix] 40 mg PO QDAC #30 tablet 07/28/19 12/06/19 Senna [Senokot] 8.6 mg PO DAILY PRN #14 tablet 07/28/19 12/06/19 amLODIPine [Norvasc] 5 mg PO DAILY #30 tablet 07/28/19 12/06/19 Cephalexin [Keflex] 500 mg PO BID 12/06/19 12/06/19 - Allergies Allergies/Adverse Reactions: Allergies Allergy/AdvReac Type Severity Reaction Status Date / Time No Known Drug Allergies Allergy Verified 12/06/19 14:42 - Social History Does the pt smoke?: Yes Smoking Status: Current some day smoker Does the pt drink ETOH?: No Does the pt have substance abuse?: Yes - Immunizations Immunizations are current?: Yes - POLST Patient has POLST: No POLST Status: Full Code PD ED PE EXPANDED - General General: Alert, No acute distress, Anxious - Cardiac Cardiac: Femoral strong equal, Pedal strong equal, Cap refill < 2 sec - Respiratory Respiratory: Clear to ausultation shauna. No: Distress, Labored - Abdomen Abdomen: Normal Bowel sounds. No: Tender to palpation - Extremities Extremities: Other (Left foot noted to be erythematous and swollen. On the sole of the foot is an open wound with serous drainage and foul smell. 1+ DP pulse. brisk cap refill) Results - Vitals Vitals: Vital Signs - 24 hr 12/06/19 14:36 Temperature 37.2 C Heart Rate 85 Respiratory 18 Rate Blood Pressure 158/83 H O2 Saturation 100 Oxygen O2 Source Room air - Labs Labs: Laboratory Tests 12/06/19 12/06/19 12/06/19 15:35 15:35 15:35 WBC 6.6 RBC 4.23 L Hgb 13.1 L Hct 38.6 L MCV 91.3 MCH 31.0 MCHC 33.9 RDW 12.2 Plt Count 406 MPV 9.1 Neut # (Auto) 5.3 Lymph # (Auto) 0.7 L [place] # (Auto) 0.3 Eos # (Auto) 0.2 Baso # (Auto) 0.0 Absolute Nucleated RBC 0.00 Nucleated RBC % 0.0 ESR 74 H Sodium 134 L Potassium 4.8 Chloride 98 L Carbon Dioxide 29 Anion Gap 7.0 BUN 16 Creatinine 1.2 Estimated GFR (MDRD) 61 L Glucose 230 H Calcium 9.4 C-Reactive Protein 8.2 H - Rads (name of study) MRI left foot Radiology: Final report received (Left foot soft tissue defect over lateral aspect of the forefoot near the level of the fifth metatarsal. Signal intensity and osseous destruction of the fifth metatarsal and proximal phalanx of the fifth toe. Findings are concerning for osteomyelitis) PD MEDICAL DECISION MAKING - ED course Complexity details: reviewed old records, reviewed results, re-evaluated patient, considered differential, d/w patient ED course: 64-year-old diabetic male presents to the emergency department for a chronic nonhealing wound on the left foot that has been present for about 5 years but acutely worsening over the last 6 months with the pandemic. There is concerned that he may have osteomyelitis therefore he was advised to come to the ER from the [facility] clinic in order to obtain an MRI. - It is noted to have both an elevated sed rate and CRP. He has no fever and no leukocytosis the wound on the lateral edge of his foot is quite chronic appearing but does have a foul smell and large amount of serous drainage. The MRI is very suggestive of acute osteomyelitis of left 5th metatarsal. Vancomycin and cefipime ordered. I have spoken with Dr. Nelson who agrees to consult on possible surgical intervention. Dr. Shoemaker will see the pt and admit to the medicine service. Departure - Departure Disposition: 66 [facility] DC/Xfer Clinical Impression: Osteomyelitis Qualifiers: Osteomyelitis type: unspecified type Osteomyelitis location: foot Laterality: left Qualified Code(s): M86.9 - Osteomyelitis, unspecified Diabetes Qualifiers: Diabetes mellitus type: type 2 Diabetes mellitus custodial insulin use: with custodial use Diabetes mellitus complication status: with skin complications Diabetes mellitus complication detail: with foot ulcer Qualified Code(s): E11.621 - Type 2 diabetes mellitus with foot ulcer; L97.509 - Non-pressure chronic ulcer of other part of unspecified foot with unspecified severity; 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
[2019-12-06 15:41] LABS: BASOPHILS % (AUTO) 0.6 %; EOSINOPHILS # (AUTO) 0.2 10^3/uL (0.0-0.7); EOSINOPHILS % (AUTO) 3.2 %; HGB - HEMOGLOBIN 13.1 g/dL (14.0-18.0); LYMPHOCYTES # (AUTO) 0.7 10^3/uL (1.5-3.5); LYMPHOCYTES % (AUTO) 11.1 %; MEAN CORPUSCULAR HGB CONC 33.9 g/dL (32.0-36.0); MEAN CORPUSCULAR VOLUME 91.3 fL (80.0-94.0); MEAN PLATELET VOLUME 9.1 fL (7.4-11.4); MONOCYTES # (AUTO) 0.3 10^3/uL (0.0-1.0); MONOCYTES % (AUTO) 4.4 %; NEUTROPHILS # (AUTO) 5.3 10^3/uL (1.5-6.6); NEUTROPHILS % (AUTO) 80.2 %; PLT - PLATELET COUNT 406 10^3/uL (130-450); RED BLOOD COUNT 4.23 10^6/uL (4.70-6.10); RED CELL DISTRIBUTION WIDTH 12.2 % (12.0-15.0); WHITE BLOOD COUNT 6.6 x10^3/uL (4.8-10.8)
[2019-12-06] MEDS ORDERED: ONDANSETRON ODT 4 MG TABLET TL STA (15:46)
[2019-12-06 16:03] LABS: CALCIUM 9.4 mg/dL (8.5-10.3); CREATININE 1.2 mg/dL (0.6-1.2); CRP - C-REACTIVE PROTEIN 8.2 mg/dL (0-1.0)
[2019-12-06] MEDS ORDERED: GADOBUTROL 10 MMOL/10 ML VIAL ONE (16:18)
[2019-12-06] MEDS ORDERED: GADOBUTROL 10 MMOL/10 ML VIAL IVP ONE (17:41)
[2019-12-06] MEDS ORDERED: CEFEPIME 1 GM in SODIUM CHLORIDE 0.9% MINIBAG 100 ML IV STA (18:38)
[2019-12-06] MEDS ORDERED: VANCOMYCIN INJ 1.25 GM in SODIUM CHLORIDE 0.9% 500 ML IV STA (18:39)
[2019-12-06] MEDS ORDERED: VANCOMYCIN INJ 2 GM in SODIUM CHLORIDE 0.9% 500 ML IV STA (18:42)
--- NOTE | 2019-12-06 18:47 | MRI Report ---
PROCEDURE: Foot LT W/WO INDICATIONS: foot ulcer r/o osteo CONTRAST: IV CONTRAST: Gadavist ml: 10 TECHNIQUE: Noncontrast sagittal T1 spin echo and T2 fast spin echo with fat saturation, long-axis T1 spin echo a nd T2 fast spin echo with fat saturation; short-axis T1 spin echo, proton density fast spin echo, and T2 fast spin echo with fat saturation through the forefoot. Post-contrast short axis, long axis, an d sagittal T1 spin echo with fat saturation through the forefoot. COMPARISON: None. FINDINGS: Image quality: There is mild image degradation secondary to motion artifact. There is soft tissue swelling and moderate sized lateral left foot soft tissue defect near the level of the fifth metatarsal head. There is moderate soft tissue enhancement surrounding the fifth metatar ting and fifth metatarsophalangeal joint. There is underlying abnormal bone marrow signal intensity wi th osseous destruction of the distal fifth metatarsal and proximal phalanx of the fifth toe. Adjacent to the head of the fifth metatarsal, there is a regular T2 and T1 hypointense collection with stippl ed hypointense foci measuring approximately 2.7 x 1.3 cm in transverse dimension and approximately 2. 2 cm in AP dimension. This is in close proximity to the overlying skin defect and may represent packi ng material. No definite abscess formation identified. Remainder the visualized osseous structures o f the foot appear unremarkable. IMPRESSION: Left foot soft tissue defect over the lateral aspect of the forefoot near the level of the fifth meta tarsal head with moderate soft tissue edema and enhancement and underlying abnormal bone marrow signa l intensity as well as osseous destruction of the distal fifth metatarsal and proximal phalanx of the fifth toe. Findings are concerning for osteomyelitis. Of note, abnormal marrow signal intensity invo lves the entire fifth metatarsal as well as the phalanges of the fifth toe. No definite abscess forma tion identified. Reviewed by: John Marques MD on 12/06/2019 6:46 PM PDT Approved by: John Marques MD on 12/06/2019 6:46 PM PDT Station ID: [id number]
[2019-12-06] MEDS ORDERED: ONDANSETRON 4 MG/2 ML VIAL IVP PRN (19:37)
--- NOTE | 2019-12-06 19:49 | HISTORY & PHYSICAL EXAMINATION ---
Chief Complaint - Chief Complaint Chief Complaint: Left foot wound History of Present Illness - Admitted From Admitted From:: [facility] ED - History Obtained From Records Reviewed: Yes History obtained from: Patient - History of Present Illness HPI Comment/Other: Patient is a 64-year-old male with history significant for diabetes mellitus typ e 1, coronary artery disease status post PCI with stent, hypertension, hyperlipidemia, diabetic gastroparesis, GERD who presented to the ED from the [facility] wound clinic. This was his first visit to the [facility] clinic. He reports that it has taken him 3 months to get this appointment due to the pandemic. He is in need of an MRI of the left foot. It would have taken him longer to have it done outpatient. So he was sent to the ED to have the MRI done sooner. For the past weeks the patient's wound on the lateral plantar surface of the left foot has been draining foul-smelling bloody liquid. The patient reports he was prescribed an antibiotic which he has been taking for 4 days. He does not remember the name of the antibiotic. He denies fever but reports chills. He denies chest pain, dyspnea, abdominal pain, nausea, vomiting. He complains of back spasms. MRI findings were concerning for osteomyelitis. Dr. Nelson with orthopedic surgery was contacted and is agreeable to see the patient in consult tomorrow. History - Past Medical History Cardiovascular: reports: Hypertension, High cholesterol, Coronary artery disease Respiratory: reports: None Neuro: reports: None Endocrine/Autoimmune: reports: Type 1 diabetes GI: reports: GERD : reports: Benign prostate hypertrophy HEENT: reports: None Psych: reports: None Musculoskeletal: reports: Gout Derm: reports: None MRSA Hx?: No - Past Surgical History General: reports: Appendectomy Ortho: reports: Amputation (right lateral 3 toes), Other - Family & Social History Family History: Father: Cancer, Sister: Diabetes, Type 1, Brother: Cancer, Diabetes, Type 1 Social History Notes: He smokes marijuana but no tobacco product. He drinks occasionally - POLST Patient has POLST: No POLST Status: Full Code Meds/Allgy - Home Medications Home Medications: Ambulatory Orders Medication Instructions Recorded Confirmed Insulin Regular Human [NovoLIN R] 2 - 10 unit SUBQ TIDWM 06/09/19 12/06/19 Omeprazole 20 mg PO QDAC 06/09/19 12/06/19 Tamsulosin [Flomax] 0.4 mg PO DAILY 06/09/19 12/06/19 Insulin NPH Human [Humulin N] 35 unit SUBQ BID 06/10/19 12/06/19 Carvedilol [Coreg] 25 mg PO BID #60 tablet 06/14/19 12/06/19 Aspirin [Aspirin EC] 81 mg PO DAILY #30 tablet. 07/28/19 12/06/19 Atorvastatin Calcium [Lipitor] 80 mg PO QPM #30 tablet 07/28/19 12/06/19 Losartan Potassium 100 mg PO DAILY #30 tablet 07/28/19 12/06/19 Metoclopramide [Reglan] 10 mg PO Q6H PRN #30 tablet 07/28/19 12/06/19 Ondansetron Odt [Zofran Odt] 4 mg TL Q4HR PRN #20 tablet 07/28/19 12/06/19 Pantoprazole [Protonix] 40 mg PO QDAC #30 tablet 07/28/19 12/06/19 Senna [Senokot] 8.6 mg PO DAILY PRN #14 tablet 07/28/19 12/06/19 amLODIPine [Norvasc] 5 mg PO DAILY #30 tablet 07/28/19 12/06/19 Cephalexin [Keflex] 500 mg PO BID 12/06/19 12/06/19 - Allergies Allergies/Adverse Reactions: Allergies Allergy/AdvReac Type Severity Reaction Status Date / Time No Known Drug Allergies Allergy Verified 12/06/19 14:42 Review of Systems - Constitutional Constitutional: denies: Fatigue, Fever, Chills - Eyes Eyes: denies: Pain - Ears, Nose & Throat Ears, Nose & Throat: denies: Ear pain - Cardiovascular Cariovascular: denies: Irregular heart rate, Palpitations, Chest pain, Edema, Lightheadedness, Syncope - Respiratory Respiratory: denies: Cough, Sputum production, Wheezing, SOB at rest - Gastrointestinal Gastrointestinal: denies: Abdominal pain, Abdominal distention, Constipation, Nausea, Vomiting - Genitourinary Genitourinary: denies: Dysuria, Frequency, Urgency, Hematuria - Musculoskeletal Musculoskeletal: denies: Muscle pain, Back pain, Muscle aches - Integumentary Integumentary: denies: Rash, Pruritis - Neurological Neurological: denies: General weakness, Focal weakness, Headache - Psychiatric Psychiatric: denies: Depression, Anxiety - Endocrine Endocrine: denies: Polyuria, Polydypsia - Hematologic/Lymphatic Hematologic/Lymphatic: denies: Anemia, Bruising, Petechiae Prior Level of Functionality: Patient is independent of activities of daily living Exam - Vital Signs Vital Signs: Vital Signs x48h Temp Pulse Resp BP Pulse Ox 12/06/19 14:36 37.2 C 85 18 158/83 H 100 - Physical Exam General Appearance: positive: Mild distress Eyes Bilateral: positive: PERRL, EOMI ENT: positive: No signs of dehydration Neck: positive: No JVD, Trachea midline Respiratory: positive: Chest non-tender, No respiratory distress, Breath sounds nml. negative: Wheezes, Rales, Rhonchi Cardiovascular: positive: Regular rate & rhythm, No murmur Abdomen: positive: Non-tender, Nml bowel sounds, No distention. negative: Guarding, Rebound Back: positive: Nml inspection Skin: positive: Color nml, No rash, Warm Extremities: positive: No pedal edema, Other (chronic wound on left foot with foul smelling drainage) Neurologic/Psychiatric: positive: Oriented x3, Mood/affect nml Conclusion/Plan - Problem List (1) Osteomyelitis Conclusion/Plan: Left fifth metatarsal. Patient started on vancomycin and cefepime. Dr. Nelson with orthopedic surgery was consulted and will see the patient. N.p.o. after midnight. Pain management as needed. Patient was seen at the [facility] wound clinic today before being directed to the ED to get an MRI sooner. He described what seemed to be and ankle-brachial index done at the [facility]. However reviewing records there is no indication of the results. We will contact the [facility] in the morning to verify and obtain results. Patient was last admitted to the hospital in June 2019. During that time he had an NSTEMI for which he was transferred to [place] where he had a cardiac cath with stents placed. We will request records from [place]. We will get an EKG in anticipation of surgery. Qualifiers: Osteomyelitis type: unspecified type Osteomyelitis location: foot Laterality: left Qualified Code(s): M86.9 - Osteomyelitis, unspecified (2) Coronary artery disease Conclusion/Plan: On carvedilol, losartan, statin, aspirin. We will continue. Patient was last admitted to the hospital in June 2019. During that time he had an end STEMI for which he was transferred to [place] where he had a cardiac cath with stents placed. We will request records from [place]. We will get an EKG in anticipation of surgery. (3) Diabetes Conclusion/Plan: Type I diabetic. Carb controlled diet. N.p.o. after midnight. Patient is on Humulin 35 units subcu twice daily Will order Lantus 25 units twice daily. Sliding scale insulin with Accu-Cheks. Qualifiers: Diabetes mellitus type: type 2 Diabetes mellitus mcfp insulin use: with exterminator termite use Diabetes mellitus complication status: with skin complications Diabetes mellitus complication detail: with foot ulcer Qualified Code(s): E11.621 - Type 2 diabetes mellitus with foot ulcer; L97.509 - Non-pressure chronic ulcer of other part of unspecified foot with unspecified severity; Z79.4 - bed bug exterminator (current) use of insulin (4) Hyperlipidemia Conclusion/Plan: Will resume atorvastatin once verified (5) Hypertension Conclusion/Plan: On amlodipine, carvedilol and losartan. Will resume once verified. Qualifiers: Hypertension type: essential hypertension Qualified Code(s): I10 - Essential (primary) hypertension (6) BPH (benign prostatic hyperplasia) Conclusion/Plan: Resume tamsulosin. (7) GERD (gastroesophageal reflux disease) Conclusion/Plan: Protonix ordered. (8) Gastroparesis diabeticorum Conclusion/Plan: Will order Reglan every 6 hours as needed. - Lab Results Fish Bones: 12/07/19 04:45 12/07/19 04:45 Core Measures - Anticipated LOS I expect patient to be DC'd or transferred within 96 hours.: Yes - DVT/VTE - Prophylaxis VTE/DVT Device ordered at admit?: Yes VTE/DVT Prophylaxis med ordered at admit?: Yes
[2019-12-06] MEDS ORDERED: SODIUM CHLORIDE 0.9% 1,000 ML IV SCH (20:00)
[2019-12-06] MEDS ORDERED: INSULIN GLARGINE 300 UNIT/3 ML PEN SUBQ SCH (21:00)
[2019-12-06] MEDS ORDERED: INSULIN ASPART 300 UNIT/3 ML PEN SUBQ SCH (21:00)
[2019-12-06] MEDS ORDERED: CYCLOBENZAPRINE 10 MG TABLET PO STA (21:38)
[2019-12-06] MEDS: HEPARIN 5,000 UNIT/ML VIAL SUBQ SCH (22:00)
[2019-12-06] MEDS: SODIUM CHLORIDE FLUSH 0.9% 10 ML SYRINGE IVP SCH (23:47)
[2019-12-06] MEDS: oxyCODONE 5 MG TABLET PO PRN (23:52)
[2019-12-07] MEDS: CEFEPIME 2 GM in SODIUM CHLORIDE 0.9% MINIBAG 100 ML IV SCH ×3 (03:08→19:06)
[2019-12-07 05:08] LABS: BASOPHILS % (AUTO) 0.5 %; EOSINOPHILS # (AUTO) 0.2 10^3/uL (0.0-0.7); EOSINOPHILS % (AUTO) 2.3 %; HGB - HEMOGLOBIN 10.8 g/dL (14.0-18.0); LYMPHOCYTES % (AUTO) 12.7 %; MEAN CORPUSCULAR HEMOGLOBIN 30.7 pg (27.0-31.0); MEAN CORPUSCULAR HGB CONC 33.2 g/dL (32.0-36.0); MEAN CORPUSCULAR VOLUME 92.3 fL (80.0-94.0); MEAN PLATELET VOLUME 9.3 fL (7.4-11.4); MONOCYTES # (AUTO) 0.8 10^3/uL (0.0-1.0); MONOCYTES % (AUTO) 10.1 %; NEUTROPHILS # (AUTO) 5.7 10^3/uL (1.5-6.6); PLT - PLATELET COUNT 338 10^3/uL (130-450); RED BLOOD COUNT 3.52 10^6/uL (4.70-6.10); RED CELL DISTRIBUTION WIDTH 12.3 % (12.0-15.0); WHITE BLOOD COUNT 7.7 x10^3/uL (4.8-10.8)
[2019-12-07 05:12] LABS: CALCIUM 8.9 mg/dL (8.5-10.3); CREATININE 1.1 mg/dL (0.6-1.2)
[2019-12-07] MEDS: METOCLOPRAMIDE 10 MG TABLET PO SCH ×4 (06:17→21:03)
[2019-12-07] MEDS: SODIUM CHLORIDE FLUSH 0.9% 10 ML SYRINGE IVP PRN (06:17)
[2019-12-07] MEDS ORDERED: PANTOPRAZOLE 40 MG VIAL IVP SCH (07:00)
[2019-12-07] MEDS ORDERED: INSULIN REGULAR HUMAN 300 UNIT/3 ML VIAL SUBQ SCH (07:30)
[2019-12-07] MEDS ORDERED: DEXTROSE 5%-0.45% NACL 1,000 ML IV SCH (08:00)
--- NOTE | 2019-12-07 08:14 | XRAY Report ---
PROCEDURE: Chest 1 View X-Ray INDICATIONS: pre-op eval TECHNIQUE: One view of the chest was acquired. COMPARISON: 07/24/2019 and 06/09/2019 FINDINGS: Surgical changes and devices: None. Lungs and pleura: No pleural effusions or pneumothorax. Lungs are clear. Mediastinum: Mediastinal contours appear normal. Heart size is normal. Bones and chest wall: No suspicious bony lesions. Overlying soft tissues appear unremarkable. IMPRESSION: No acute cardiopulmonary disease process. Reviewed by: Eufemia Davidson MD, PhD on 12/07/2019 8:13 AM PDT Approved by: Eufemia Davidson MD, PhD on 12/07/2019 8:13 AM PDT Station ID: [id number]
[2019-12-07 08:16] LABS: ALBUMIN 2.9 g/dL (3.2-5.5); BILIRUBIN,DIRECT 0.2 mg/dL (0.1-0.5); BILIRUBIN,TOTAL 0.8 mg/dL (0.2-1.0); CRP HIGH SENSITIVITY 71.9 mg/L; TOTAL PROTEIN 6.2 g/dL (6.7-8.2)
[2019-12-07 08:32] LABS: INR 1.3 (0.8-1.2); PT - PROTHROMBIN TIME 14.7 secs (9.9-12.6)
[2019-12-07] MEDS ORDERED: carvediloL 12.5 MG TABLET PO SCH (09:00)
[2019-12-07] MEDS ORDERED: ASPIRIN EC 81 MG TABLET PO SCH (09:00)
[2019-12-07] MEDS: SODIUM CHLORIDE FLUSH 0.9% 10 ML SYRINGE IVP SCH ×3 (09:28→23:53)
[2019-12-07] MEDS: HEPARIN 5,000 UNIT/ML VIAL SUBQ SCH ×2 (09:44→21:05)
[2019-12-07] MEDS: INSULIN GLARGINE 300 UNIT/3 ML PEN SUBQ SCH ×2 (09:45→21:19)
--- NOTE | 2019-12-07 09:46 | CONSULTATION NOTE ---
Chief Complaint - Chief Complaint Chief Complaint: Left foot chronic fifth metatarsal ulcer/osteomyelitis longstanding History of Present Illness - Admitted From Admitted From:: Emergency department - History Obtained From History obtained from: Patient - History of Present Illness HPI Comment/Other: This 64-year-old white male with chronic diabetes type 2. The patient is a poor historian with multiple complications of chronic poorly managed diabetes mellitus including gastroparesis, peripheral vascular disease, cardiac disease, neuropathy, and compliance issues and access issues with his medical care. with unknown diabetic management and compliance presents with a nonhealing ulcer on the lateral border of his fifth metatarsal left. He states that it is been going on for over 3 months and he was unable to obtain care. It may have been going on quite a bit longer. He was referred from the wound clinic and notes are presently unavailable. He has noted no acute changes recently however he had difficulty getting an MRI scan and therefore came to the emergency room and was admitted for further evaluation and treatment and proper antibiotics. Apparently, he has been on Keflex in the past and cultures are unknown. He states that he has had MARCE's in the past but does not know the results. Podiatry does his toenail care. He does state that he had a similar problem on his right foot. This was apparently cared for at [facility]. He states that he had 5 surgeries but does not recall exactly what went wrong. He states that some of the surgeries involve plates and screws but the end result appears to be a lateral foot amputation of possibly the fourth and fifth metatarsals resulting in some transfer metatarsalgia. Those records are not available for review. He denies any history of vascular procedures or stents placed in his legs. It is unclear whether he had any revascularization procedures on his right leg but he does state that he had some operation done at his knee. He is presently against any type of amputation. He may not have any choice in the matter without revascularization of some sort. He does have a history of cardiac issues which was a STEMI and resulted in cardiac stents. This was done in June 2019 at [place] and records are pending. History - Past Medical History Cardiovascular: reports: Hypertension, High cholesterol, Coronary artery disease Respiratory: reports: None Neuro: reports: None Endocrine/Autoimmune: reports: Type 1 diabetes GI: reports: GERD : reports: Benign prostate hypertrophy HEENT: reports: None Psych: reports: None Musculoskeletal: reports: Gout Derm: reports: None MRSA Hx?: No - Past Surgical History General: reports: Appendectomy Ortho: reports: Amputation (right lateral 3 toes), Other - Family & Social History Family History: Father: Cancer, Sister: Diabetes, Type 1, Brother: Cancer, Diabetes, Type 1 Social History Notes: He smokes marijuana but no tobacco product. He drinks occasionally - POLST Patient has POLST: No POLST Status: Full Code Meds/Allgy - Home Medications Home Medications: Ambulatory Orders Medication Instructions Recorded Confirmed Insulin Regular Human [NovoLIN R] 2 - 10 unit SUBQ TIDWM 06/09/19 12/06/19 Omeprazole 20 mg PO QDAC 06/09/19 12/06/19 Tamsulosin [Flomax] 0.4 mg PO DAILY 06/09/19 12/06/19 Insulin NPH Human [Humulin N] 35 unit SUBQ BID 06/10/19 12/06/19 Losartan Potassium 100 mg PO DAILY #30 tablet 07/28/19 12/06/19 Ondansetron Odt [Zofran Odt] 4 mg TL Q4HR PRN #20 tablet 07/28/19 12/06/19 Pantoprazole [Protonix] 40 mg PO QDAC #30 tablet 07/28/19 12/06/19 Senna [Senokot] 8.6 mg PO DAILY PRN #14 tablet 07/28/19 12/06/19 amLODIPine [Norvasc] 5 mg PO DAILY #30 tablet 07/28/19 12/06/19 Aspirin 81 mg PO DAILY 12/07/19 Atorvastatin [Lipitor] 40 mg PO DAILY 12/07/19 Carvedilol [Coreg] 25 mg PO DAILY 12/07/19 Clopidogrel [Plavix] 75 mg PO DAILY 12/07/19 Metoclopramide [Reglan] 10 mg PO TID 12/07/19 - Allergies Allergies/Adverse Reactions: Allergies Allergy/AdvReac Type Severity Reaction Status Date / Time No Known Drug Allergies Allergy Verified 12/06/19 14:42 Exam - Vital Signs Vital Signs: Vital Signs x48h Temp Pulse Resp BP Pulse Ox 12/07/19 07:29 36.9 C 80 16 127/64 95 12/07/19 05:26 36.8 C 79 14 143/81 H 95 - Physical Exam General Appearance: positive: No acute distress Eyes Bilateral: positive: PERRL, EOMI, Conjunctivae nml ENT: positive: No signs of dehydration Neck: positive: No JVD Respiratory: positive: Chest non-tender Cardiovascular: positive: Regular rate & rhythm Peripheral Pulses: positive: Other (There are no palpable pulses below the femoral pulse (pop, DP, PT) on the left foot. Poor hypertrophic nail care, no hair on foot, cracked skin on heel, though foot is perfused and warm. right side has palpable DP pulse 1+, previous 4th, 5th met amp skin healed. No other palpable pulses on right.) Abdomen: positive: Non-tender Skin: positive: Decubitus, Other Extremities: positive: Other (Chronic ulcer noted in the left lateral foot. This measures approximately 3 cm x 3 cm with surrounding erythema. The base has chronic granulation tissue with a wet desquamated skin and sinus tracts proximally. No active bleeding. Very poor protective sensation on the undersurface of the foot and) Neurologic/Psychiatric: positive: Oriented x3 Reflexes: Knee (R): 1+, Knee (L): 1+, Ankle (R): 1+, Ankle (L): 1+ Conclusion/Plan - Diagnosis Diagnosis: Chronic vascular insufficiency and chronic left fifth metatarsal ulcer with underlying osteomyelitis. - Plan Plan: 's'sThis patient is at high risk for a surgical procedure today without further assessment of his risk from a cardiovascular standpoint. At the very least he needs a records review of his recent STEMI and stents from [place], repeat ABIs and hemoglobin A1c to assess his risk factor for surgery and healing. There is a very good chance that his 5 previous surgeries on his right foot where the result of wound issues due to poor vascular flow. In the short-term his risk is cardiac for undergoing an anesthetic, and the long-term his risk is peripheral vascular since his wound after debridement may not heal if he does not have good vascular flow. - Lab Results Fish Bones: 12/07/19 04:45 12/07/19 04:45
--- NOTE | 2019-12-07 10:28 | PROVIDER PROGRESS NOTE ---
Subjective - Prog Note Date Prog Note Date: 12/07/19 Prog Note Time: 10:25 - Subjective Pt reports feeling: No change (This is been chronic for over 3 months) Objective - Vital Signs/Intake & Output Vital Signs: Vital Signs x48h Temp Pulse Resp BP Pulse Ox 12/07/19 07:29 36.9 C 80 16 127/64 95 12/07/19 05:26 36.8 C 79 14 143/81 H 95 Intake & Output: Intake & Output 12/04/19 12/05/19 12/06/19 12/07/19 23:59 23:59 23:59 23:59 Intake Total 600 340 Output Total 180 390 Balance 420 -50 - Lab Results Fish Bones: 12/07/19 04:45 12/07/19 04:45 Other Labs: Lab Results x24hrs 12/07/19 12/07/19 12/07/19 Range/Units 08:09 08:09 07:22 WBC (4.8-10.8) x10^3/uL RBC (4.70-6.10) 10^6/uL Hgb (14.0-18.0) g/dL Hct (42.0-52.0) % MCV (80.0-94.0) fL MCH (27.0-31.0) pg MCHC (32.0-36.0) g/dL RDW (12.0-15.0) % Plt Count (130-450) 10^3/uL MPV (7.4-11.4) fL Neut # (Auto) (1.5-6.6) 10^3/uL Lymph # (Auto) (1.5-3.5) 10^3/uL Bureau # (Auto) (0.0-1.0) 10^3/uL Eos # (Auto) (0.0-0.7) 10^3/uL Baso # (Auto) (0.0-0.1) 10^3/uL Absolute Nucleated RBC x10^3/uL Nucleated RBC % /100WBC ESR 66 H (0-20) mm/Hr PT 14.7 H (9.9-12.6) secs INR 1.3 H (0.8-1.2) Sodium (135-145) mmol/L Potassium (3.5-5.0) mmol/L Chloride (101-111) mmol/L Carbon Dioxide (21-32) mmol/L Anion Gap (6-13) BUN (6-20) mg/dL Creatinine (0.6-1.2) mg/dL Estimated GFR (MDRD) (>89) Glucose (70-100) mg/dL POC Whole Bld Glucose 113 H (70 - 100) mg/dL Calcium (8.5-10.3) mg/dL Total Bilirubin (0.2-1.0) mg/dL Direct Bilirubin (0.1-0.5) mg/dL AST (10-42) IU/L ALT (10-60) IU/L Alkaline Phosphatase (42-121) IU/L C-Reactive Protein (0-1.0) mg/dL C-React Prot High Sens mg/L Total Protein (6.7-8.2) g/dL Albumin (3.2-5.5) g/dL Globulin (2.1-4.2) g/dL 12/07/19 12/07/19 12/07/19 Range/Units 04:45 04:45 04:45 WBC 7.7 (4.8-10.8) x10^3/uL RBC 3.52 L (4.70-6.10) 10^6/uL Hgb 10.8 L (14.0-18.0) g/dL Hct 32.5 L (42.0-52.0) % MCV 92.3 (80.0-94.0) fL MCH 30.7 (27.0-31.0) pg MCHC 33.2 (32.0-36.0) g/dL RDW 12.3 (12.0-15.0) % Plt Count 338 (130-450) 10^3/uL MPV 9.3 (7.4-11.4) fL Neut # (Auto) 5.7 (1.5-6.6) 10^3/uL Lymph # (Auto) 1.0 L (1.5-3.5) 10^3/uL Bureau # (Auto) 0.8 (0.0-1.0) 10^3/uL Eos # (Auto) 0.2 (0.0-0.7) 10^3/uL Baso # (Auto) 0.0 (0.0-0.1) 10^3/uL Absolute Nucleated RBC 0.00 x10^3/uL Nucleated RBC % 0.0 /100WBC ESR (0-20) mm/Hr PT (9.9-12.6) secs INR (0.8-1.2) Sodium 137 (135-145) mmol/L Potassium 3.8 (3.5-5.0) mmol/L Chloride 103 (101-111) mmol/L Carbon Dioxide 25 (21-32) mmol/L Anion Gap 9.0 (6-13) BUN 15 (6-20) mg/dL Creatinine 1.1 (0.6-1.2) mg/dL Estimated GFR (MDRD) 67 L (>89) Glucose 112 H (70-100) mg/dL POC Whole Bld Glucose (70 - 100) mg/dL Calcium 8.9 (8.5-10.3) mg/dL Total Bilirubin 0.8 (0.2-1.0) mg/dL Direct Bilirubin 0.2 (0.1-0.5) mg/dL AST 11 (10-42) IU/L ALT 13 (10-60) IU/L Alkaline Phosphatase 65 (42-121) IU/L C-Reactive Protein (0-1.0) mg/dL C-React Prot High Sens 71.9 mg/L Total Protein 6.2 L (6.7-8.2) g/dL Albumin 2.9 L (3.2-5.5) g/dL Globulin 3.3 (2.1-4.2) g/dL 12/06/19 12/06/19 12/06/19 Range/Units 23:48 21:15 15:35 WBC (4.8-10.8) x10^3/uL RBC (4.70-6.10) 10^6/uL Hgb (14.0-18.0) g/dL Hct (42.0-52.0) % MCV (80.0-94.0) fL MCH (27.0-31.0) pg MCHC (32.0-36.0) g/dL RDW (12.0-15.0) % Plt Count (130-450) 10^3/uL MPV (7.4-11.4) fL Neut # (Auto) (1.5-6.6) 10^3/uL Lymph # (Auto) (1.5-3.5) 10^3/uL Bureau # (Auto) (0.0-1.0) 10^3/uL Eos # (Auto) (0.0-0.7) 10^3/uL Baso # (Auto) (0.0-0.1) 10^3/uL Absolute Nucleated RBC x10^3/uL Nucleated RBC % /100WBC ESR (0-20) mm/Hr PT (9.9-12.6) secs INR (0.8-1.2) Sodium 134 L (135-145) mmol/L Potassium 4.8 (3.5-5.0) mmol/L Chloride 98 L (101-111) mmol/L Carbon Dioxide 29 (21-32) mmol/L Anion Gap 7.0 (6-13) BUN 16 (6-20) mg/dL Creatinine 1.2 (0.6-1.2) mg/dL Estimated GFR (MDRD) 61 L (>89) Glucose 230 H (70-100) mg/dL POC Whole Bld Glucose 128 H 143 H (70 - 100) mg/dL Calcium 9.4 (8.5-10.3) mg/dL Total Bilirubin (0.2-1.0) mg/dL Direct Bilirubin (0.1-0.5) mg/dL AST (10-42) IU/L ALT (10-60) IU/L Alkaline Phosphatase (42-121) IU/L C-Reactive Protein 8.2 H (0-1.0) mg/dL C-React Prot High Sens mg/L Total Protein (6.7-8.2) g/dL Albumin (3.2-5.5) g/dL Globulin (2.1-4.2) g/dL 12/06/19 12/06/19 Range/Units 15:35 15:35 WBC 6.6 (4.8-10.8) x10^3/uL RBC 4.23 L (4.70-6.10) 10^6/uL Hgb 13.1 L (14.0-18.0) g/dL Hct 38.6 L (42.0-52.0) % MCV 91.3 (80.0-94.0) fL MCH 31.0 (27.0-31.0) pg MCHC 33.9 (32.0-36.0) g/dL RDW 12.2 (12.0-15.0) % Plt Count 406 (130-450) 10^3/uL MPV 9.1 (7.4-11.4) fL Neut # (Auto) 5.3 (1.5-6.6) 10^3/uL Lymph # (Auto) 0.7 L (1.5-3.5) 10^3/uL Bureau # (Auto) 0.3 (0.0-1.0) 10^3/uL Eos # (Auto) 0.2 (0.0-0.7) 10^3/uL Baso # (Auto) 0.0 (0.0-0.1) 10^3/uL Absolute Nucleated RBC 0.00 x10^3/uL Nucleated RBC % 0.0 /100WBC ESR 74 H (0-20) mm/Hr PT (9.9-12.6) secs INR (0.8-1.2) Sodium (135-145) mmol/L Potassium (3.5-5.0) mmol/L Chloride (101-111) mmol/L Carbon Dioxide (21-32) mmol/L Anion Gap (6-13) BUN (6-20) mg/dL Creatinine (0.6-1.2) mg/dL Estimated GFR (MDRD) (>89) Glucose (70-100) mg/dL POC Whole Bld Glucose (70 - 100) mg/dL Calcium (8.5-10.3) mg/dL Total Bilirubin (0.2-1.0) mg/dL Direct Bilirubin (0.1-0.5) mg/dL AST (10-42) IU/L ALT (10-60) IU/L Alkaline Phosphatase (42-121) IU/L C-Reactive Protein (0-1.0) mg/dL C-React Prot High Sens mg/L Total Protein (6.7-8.2) g/dL Albumin (3.2-5.5) g/dL Globulin (2.1-4.2) g/dL Assessment/Plan - Problem List (1) Osteomyelitis Impression: Due to the chronic nature of this ulcer and the unclear nature of the failure of the right foot surgeries I think it is prudent to obtain better vascular data on the left lower extremity. An acute debridement with wound left open is not contraindicated if he was acutely change in status however he would be better off with vascular evaluation possible stenting of the left lower extremity and 1-2 surgeries on the left foot which may include debridement and primary closure. With the present vascular status I doubt whether his wound would heal. Further vascular consult and ABIs are indicated. Qualifiers: Osteomyelitis type: unspecified type Osteomyelitis location: foot Laterality: left Qualified Code(s): M86.9 - Osteomyelitis, unspecified
[2019-12-07] MEDS: INSULIN ASPART 300 UNIT/3 ML PEN SUBQ SCH ×3 (11:29→21:20)
--- NOTE | 2019-12-07 11:33 | PHARMACY PROGRESS NOTE ---
- Therapy Status Vancomycin regimen day #: 1 Therapy status: Awaiting steady state Basis for treatment: Empirical Treatment indication: OSTEOMYELITIS Trough goal: 15-20 Concurrent antibiotics: CEFEPIME 2G Q8H - KI Risk Risk level for Acute Kidney Injury: High Acute Kidney Injury risk factors: IV contrast within 72 hrs, Goal trough >15, Chronic baseline hypertension, Diabetes - Monitoring and Recommendation Clinical response to treatment: I&O Previous 24 hours 12/05/19 12/06/19 12/07/19 23:59 23:59 23:59 Intake Total 600 340 Output Total 180 390 Balance 420 -50 Lab Results 12/07/19 12/07/19 12/06/19 08:09 04:45 15:35 ESR 66 H BUN 15 16 Creatinine 1.1 1.2 Estimated GFR (MDRD) 67 L 61 L 12/06/19 15:35 ESR 74 H BUN Creatinine Estimated GFR (MDRD) Monitoring plan: Daily serum creatinine, Draw trough early, Suggest ongoing fluid replacement Next trough due prior to maintenance dose #: 4 Next trough due (date/time): 12/08 @ 1130 Areas for additional monitoring: IV to PO when appropriate, Therapy de- escalation based on culture results, Acute Kidney Injury Pharmacy recommendation: Continue current regime (EXTENDED INTERVAL BETWEEN INITIAL ED LOADING DOSE AND NEXT DOSE - GAVE 2ND 2G DOSE (MAX 4G/24HR) A PSEUDO-LOAD.)
[2019-12-07] MEDS ORDERED: VANCOMYCIN INJ 2 GM in SODIUM CHLORIDE 0.9% 500 ML IV SCH ×4 (12:00)
--- NOTE | 2019-12-07 12:16 | PHARMACY PROGRESS NOTE ---
- Best Possible Medication History Admit Date and Time: 12/06/191936 Processed by: Pharmacy Medication History completed: Yes Patient Interview: Pt unable to participate (PATIENT REFUSED INTERVIEW STATING "WHAT YOU HAVE IS CORRECT" PRIOR TO DISCUSSION) Secondary Source(s): Physician records, Pharmacy records, Previous admit records As the person ultimately responsible for medication therapy, providers are able to order a medication from an existing home medication list in [facility] via the "Reconcile Routine" prior to Confirmation of that medication by customer support manager. Such practice is discouraged except when the physician, in their clinical judgment, deems that a medical need exists for a medication without regard to previous use.
[2019-12-07] MEDS ORDERED: ASPIRIN CHEW 81 MG TABLET PO SCH (13:10)
[2019-12-07] MEDS ORDERED: SENNA 8.6 MG TABLET PO PRN (13:10)
[2019-12-07] MEDS ORDERED: IOVERSOL 320 100 ML VIAL IVP ONE ×3 (13:20→15:18)
[2019-12-07 13:41] LABS: HEMOGLOBIN A1c% 9.9 % (4.27-6.07)
[2019-12-07] MEDS: CLOPIDOGREL 75 MG TABLET PO SCH (14:33)
[2019-12-07] MEDS: LOSARTAN 50 MG TABLET PO SCH (16:22)
[2019-12-07] MEDS: MULTIVITAMIN W/MINERALS TABLET PO SCH (17:09)
--- NOTE | 2019-12-07 18:13 | PROVIDER PROGRESS NOTE ---
Assessment/Plan - Problem List (1) Osteomyelitis Qualifiers: Osteomyelitis type: unspecified type Osteomyelitis location: foot Laterality: left Qualified Code(s): M86.9 - Osteomyelitis, unspecified Assessment/Plan: Appreciate the recommendations of orthopedist, Dr. Nelson. We will evaluate whether he has adequate vascular flow to the leg with MARCE and CTA of the left leg. Continue with IV antibiotics, Vanco and Cefepime. Await any culture results (which were hopefully obtained at the MAC appointment yesterday before he was sent to the ER for an MRI). There will be some type of surgery upcoming, yet to be determined by the orthopedist. The pt can eat, will cancel the NPO. (2) Coronary artery disease Assessment/Plan: Patient was last admitted to the hospital in June 2019. During that time he had an NSTEMI for which he subsequently had a cardiac cath with stents placed at [facility] and is onb asprin and Plavix. We have requested records from [place] all day and have received none yet. An EKG showed no new changes since June; the EKG was obtained in anticipation of surgery. We will continue with daily aspirin and oral Plavix, this was discussed with the orthopedic surgeon. (3) IDDM (insulin dependent diabetes mellitus) Assessment/Plan: The A1c was 9.9. The patient admits that he was not as strict on glucose monitoring and diabetic management over the last 1 month. Will change to sliding scale insulin for a patient that is eating and continue his long-acting Insulin (4) Gastroparesis diabeticorum Assessment/Plan: He gets nausea often. He needs to be on scheduled Reglan unfortunately. Will order PRN Zofran as well. (5) Hyperlipidemia Assessment/Plan: Will resume atorvastatin (6) Hypertension Qualifiers: Hypertension type: essential hypertension Qualified Code(s): I10 - Essential (primary) hypertension Assessment/Plan: On amlodipine, carvedilol and losartan, reordered with parameters for holding (7) BPH (benign prostatic hyperplasia) Assessment/Plan: Resume tamsulosin. (8) GERD (gastroesophageal reflux disease) Assessment/Plan: Protonix ordered. (9) Anemia Assessment/Plan: Will obtain B12 and folate levels and iron stores and replace if low - Current Meds Current Meds: Current Medications Generic Name Dose Route Start Last Admin Trade Name Freq PRN Reason Stop Dose Admin Clopidogrel Bisulfate 75 mg 12/07/19 13:11 12/07/19 14:33 Plavix PO 75 mg DAILY NATHANIEL Administration Heparin Sodium (Porcine) 5,000 unit 12/06/19 21:00 12/07/19 09:44 SUBQ 5,000 unit BID NATHANIEL Administration Cefepime HCl 2 gm/ Sodium 100 mls @ 200 mls/hr 12/07/19 03:00 12/07/19 12:42 Chloride IV Infused Q8H NATHANIEL Infusion Insulin Aspart 2 - 10 unit 12/07/19 12:00 12/07/19 17:08 Novolog SUBQ 2 unit 0800,1200,1700,2100 NATHANIEL Administration Protocol Insulin Glargine 15 unit 12/07/19 09:00 12/07/19 09:45 Lantus Solostar SUBQ 15 unit BID NATHANIEL Administration Losartan Potassium 50 mg 12/07/19 16:00 12/07/19 16:22 Cozaar PO 50 mg DAILY NATHANIEL Administration Metoclopramide HCl 10 mg 12/07/19 14:00 12/07/19 14:33 Reglan PO 10 mg TID NATHANIEL Administration Multivitamins/Minerals 1 tab 12/07/19 17:00 12/07/19 17:09 Theragran M PO 1 tab DAILYWM NATHANIEL Administration Oxycodone HCl 5 mg 12/06/19 19:37 12/06/19 23:52 Roxicodone PO 5 mg Q4HR PRN Administration Pain 5 to 7 Sodium Chloride 10 ml 12/06/19 19:37 12/07/19 06:17 Normal Saline Flush 0.9% IVP 10 ml PRN PRN Administration NEEDED PER PROVIDER ORDERS Sodium Chloride 10 ml 12/07/19 01:00 12/07/19 17:09 Normal Saline Flush 0.9% IVP 10 ml 0100,0900,1700 NATHANIEL Administration - Lab Result Fish Bone Diagrams: 12/07/19 04:45 12/07/19 04:45 - Additional Planning My Orders: My Active Orders 12/07/19 09:26 Ankle Brachial Index [US] Routine 12/07/19 12:00 Insulin Aspart [NovoLOG] 2 - 10 unit SUBQ 0800,1200,1700,2100 12/07/19 13:03 ANGIO LOWER EXT W/WO - LT [CT] Routine 12/07/19 13:10 Senna [Senokot] 8.6 mg PO DAILY PRN 12/07/19 13:11 Clopidogrel [Plavix] 75 mg PO DAILY 12/07/19 14:00 Metoclopramide [Reglan] 10 mg PO TID 12/07/19 16:00 Losartan [Cozaar] 50 mg PO DAILY 12/07/19 Dinner Carb-controlled Diet [DIET] 12/07/19 17:00 Multivitamin W/Minerals [Theragran M] 1 tab PO DAILYWM 12/07/19 21:00 Atorvastatin [Lipitor] 40 mg PO QPM carvediloL [Coreg] 12.5 mg PO BID 12/08/19 00:00 Vancomycin Inj [Vancomycin] 1.75 gm Sodium Chloride 0.9% [Normal Saline 0.9%] 500 ml IV Q12H 12/08/19 09:00 Aspirin Chewable [[facility] Santos Aspirin] 81 mg PO DAILY Tamsulosin [Flomax] 0.4 mg PO DAILY amLODIPine [Norvasc] 5 mg PO DAILY Subjective - Subjective Patient Reports: Nausea (He is more nauseated when he is sitting or vertically standing. Laying down and having a fan blow on him makes him feel better.), Pain (He has severe pain when bearing weight on the left leg) Objective Vital Signs: Vital Signs - 24 hr 12/06/19 12/06/19 12/06/19 21:00 21:51 22:15 Temperature 37.6 C H 37.6 C H 37.5 C Heart Rate 88 Heart Rate [ 88 Brachial] Respiratory 16 16 Rate Blood Pressure 135/71 H [Left Brachial artery] O2 Saturation 97 97 12/07/19 12/07/19 12/07/19 00:13 05:26 07:29 Temperature 37.2 C 36.8 C 36.9 C Heart Rate Heart Rate [ 85 79 80 Brachial] Respiratory 16 14 16 Rate Blood Pressure 126/68 143/81 H 127/64 [Left Brachial artery] O2 Saturation 94 95 95 12/07/19 12/07/19 11:22 15:43 Temperature 37.4 C 36.6 C Heart Rate Heart Rate [ 78 75 Brachial] Respiratory 18 16 Rate Blood Pressure 115/67 120/71 [Left Brachial artery] O2 Saturation 97 97 Oxygen O2 Source Room air I&O (Last 24 Hrs): Intake and Output Totals x24h 12/05/19 12/06/19 12/07/19 23:59 23:59 23:59 Intake Total 600 3350 Output Total 180 1115 Balance 420 2235 General: Alert, Oriented x3 HEENT: EOMI, Mucous membr. moist/pink Neck: Supple, No JVD Neuro: Alert, Non Focal Cardiovascular: Regular rate, No murmurs Respiratory: No respiratory distress, Breath sounds nml Abdomen: Normal bowel sounds, Soft Extremities: No edema, Other (Left foot bandaged and bandage was not opened) - Results Results: Laboratory Results WBC 7.7 x10^3/uL (4.8-10.8) 12/07/19 04:45 RBC 3.52 10^6/uL (4.70-6.10) L 12/07/19 04:45 Hgb 10.8 g/dL (14.0-18.0) L 12/07/19 04:45 Hct 32.5 % (42.0-52.0) L 12/07/19 04:45 MCV 92.3 fL (80.0-94.0) 12/07/19 04:45 MCH 30.7 pg (27.0-31.0) 12/07/19 04:45 MCHC 33.2 g/dL (32.0-36.0) 12/07/19 04:45 RDW 12.3 % (12.0-15.0) 12/07/19 04:45 Plt Count 338 10^3/uL (130-450) 12/07/19 04:45 MPV 9.3 fL (7.4-11.4) 12/07/19 04:45 Neut # (Auto) 5.7 10^3/uL (1.5-6.6) 12/07/19 04:45 Lymph # (Auto) 1.0 10^3/uL (1.5-3.5) L 12/07/19 04:45 [place] # (Auto) 0.8 10^3/uL (0.0-1.0) 12/07/19 04:45 Eos # (Auto) 0.2 10^3/uL (0.0-0.7) 12/07/19 04:45 Baso # (Auto) 0.0 10^3/uL (0.0-0.1) 12/07/19 04:45 Absolute Nucleated RBC 0.00 x10^3/uL 12/07/19 04:45 Nucleated RBC % 0.0 /100WBC 12/07/19 04:45 ESR 66 mm/Hr (0-20) H 12/07/19 08:09 PT 14.7 secs (9.9-12.6) H 12/07/19 08:09 INR 1.3 (0.8-1.2) H 12/07/19 08:09 Sodium 137 mmol/L (135-145) 12/07/19 04:45 Potassium 3.8 mmol/L (3.5-5.0) 12/07/19 04:45 Chloride 103 mmol/L (101-111) 12/07/19 04:45 Carbon Dioxide 25 mmol/L (21-32) 12/07/19 04:45 Anion Gap 9.0 (6-13) 12/07/19 04:45 BUN 15 mg/dL (6-20) 12/07/19 04:45 Creatinine 1.1 mg/dL (0.6-1.2) 12/07/19 04:45 Estimated GFR (MDRD) 67 (>89) L 12/07/19 04:45 Glucose 112 mg/dL (70-100) H 12/07/19 04:45 POC Whole Bld Glucose 168 mg/dL (70 - 100) H 12/07/19 16:45 Estimat Average Glucose 237 mg/dL (70-100) H 12/07/19 04:45 Hemoglobin A1c % 9.9 % (4.27-6.07) H 12/07/19 04:45 Calcium 8.9 mg/dL (8.5-10.3) 12/07/19 04:45 Total Bilirubin 0.8 mg/dL (0.2-1.0) 12/07/19 04:45 Direct Bilirubin 0.2 mg/dL (0.1-0.5) 12/07/19 04:45 AST 11 IU/L (10-42) 12/07/19 04:45 ALT 13 IU/L (10-60) 12/07/19 04:45 Alkaline Phosphatase 65 IU/L (42-121) 12/07/19 04:45 C-Reactive Protein 8.2 mg/dL (0-1.0) H 12/06/19 15:35 C-React Prot High Sens 71.9 mg/L 12/07/19 04:45 Total Protein 6.2 g/dL (6.7-8.2) L 12/07/19 04:45 Albumin 2.9 g/dL (3.2-5.5) L 12/07/19 04:45 Globulin 3.3 g/dL (2.1-4.2) 12/07/19 04:45 - Procedures Procedures: Procedures INSERTION OF INFUSION DEV INTO SUP VENA CAVA, PERC APPROACH (07/21/19) INSERTION OF INFUSION DEVICE INTO R ATRIUM, PERC APPROACH (06/09/19) ULTRASONOGRAPHY OF SUPERIOR VENA CAVA, GUIDANCE (06/09/19)
[2019-12-07] MEDS ORDERED: CYCLOBENZAPRINE 10 MG TABLET PO PRN (18:22)
[2019-12-07] MEDS: carvediloL 12.5 MG TABLET PO SCH (21:03)
[2019-12-07] MEDS: ATORVASTATIN 40 MG TABLET PO SCH (21:04)
[2019-12-07] MEDS: VANCOMYCIN INJ 1.75 GM in SODIUM CHLORIDE 0.9% 500 ML IV SCH (23:52)
[2019-12-08] MEDS: oxyCODONE 5 MG TABLET PO PRN (02:13)
[2019-12-08] MEDS: CEFEPIME 2 GM in SODIUM CHLORIDE 0.9% MINIBAG 100 ML IV SCH ×3 (02:45→19:04)
[2019-12-08] MEDS: METOCLOPRAMIDE 10 MG TABLET PO SCH ×2 (05:16→13:19)
[2019-12-08 05:28] LABS: EOSINOPHILS # (AUTO) 0.1 10^3/uL (0.0-0.7); EOSINOPHILS % (AUTO) 2.9 %; HGB - HEMOGLOBIN 10.9 g/dL (14.0-18.0); LYMPHOCYTES # (AUTO) 0.8 10^3/uL (1.5-3.5); LYMPHOCYTES % (AUTO) 18.4 %; MEAN CORPUSCULAR HEMOGLOBIN 30.3 pg (27.0-31.0); MEAN CORPUSCULAR HGB CONC 33.1 g/dL (32.0-36.0); MEAN CORPUSCULAR VOLUME 91.4 fL (80.0-94.0); MEAN PLATELET VOLUME 9.3 fL (7.4-11.4); MONOCYTES # (AUTO) 0.6 10^3/uL (0.0-1.0); MONOCYTES % (AUTO) 14.7 %; NEUTROPHILS # (AUTO) 2.6 10^3/uL (1.5-6.6); NEUTROPHILS % (AUTO) 62.8 %; PLT - PLATELET COUNT 324 10^3/uL (130-450); RED CELL DISTRIBUTION WIDTH 12.2 % (12.0-15.0); WHITE BLOOD COUNT 4.1 x10^3/uL (4.8-10.8)
[2019-12-08 05:37] LABS: CALCIUM 8.7 mg/dL (8.5-10.3); CREATININE 1.3 mg/dL (0.6-1.2)
[2019-12-08] MEDS: TAMSULOSIN 0.4 MG CAPSULE PO SCH (08:00)
[2019-12-08] MEDS: MULTIVITAMIN W/MINERALS TABLET PO SCH (08:00)
[2019-12-08] MEDS: CLOPIDOGREL 75 MG TABLET PO SCH (08:00)
[2019-12-08] MEDS: LOSARTAN 50 MG TABLET PO SCH (08:00)
[2019-12-08] MEDS: ASPIRIN CHEW 81 MG TABLET PO SCH (08:01)
[2019-12-08] MEDS: carvediloL 12.5 MG TABLET PO SCH ×2 (08:01→21:08)
[2019-12-08] MEDS: amLODIPine 5 MG TABLET PO SCH (08:01)
[2019-12-08] MEDS: SODIUM CHLORIDE FLUSH 0.9% 10 ML SYRINGE IVP SCH ×2 (08:03→17:19)
[2019-12-08] MEDS: INSULIN ASPART 300 UNIT/3 ML PEN SUBQ SCH ×4 (08:08→21:09)
[2019-12-08] MEDS: HEPARIN 5,000 UNIT/ML VIAL SUBQ SCH ×2 (08:08→21:11)
[2019-12-08] MEDS: INSULIN GLARGINE 300 UNIT/3 ML PEN SUBQ SCH ×2 (08:08→21:10)
--- NOTE | 2019-12-08 09:08 | Ultrasound Report ---
PROCEDURE: Ankle Brachial Index INDICATIONS: L non-healing wound TECHNIQUE: Ankle-brachial indices were obtained bilaterally and recorded. COMPARISONS: None. FINDINGS: Right ankle brachial index (MARCE): 1.11. Triphasic flow is noted in the posterior tibial artery with biphasic and the anterior tibial/dorsalis pedis. Left ankle brachial index (MARCE): 1.03. Monophasic flow is noted in the posterior tibial artery as we ll as anterior tibial and dorsalis pedis arteries. Healing potential: Ankle pressures >55 mm Hg in non-diabetics and >80 mm Hg in diabetics are likely to achieve primary h ealing of ischemic foot ulcers. Toe pressures >30 mm Hg are likely to achieve primary healing of ischemic foot ulcers, toe or transme tatarsal amputations. IMPRESSION: ABIs are within normal limits. Reviewed by: Lona Chan MD on 12/08/2019 9:07 AM PDT Approved by: Lona Chan MD on 12/08/2019 9:07 AM PDT Station ID: [id number]
--- NOTE | 2019-12-08 10:34 | PROVIDER PROGRESS NOTE ---
Subjective - Prog Note Date Prog Note Date: 12/08/19 Prog Note Time: 10:30 - Subjective Pt reports feeling: No change Subjective: Edie feels a little bit better today.Further discussion regarding the etiology of his ulcer he states that he may have stepped on a nail 2 or 3 months ago which went through his shoe. He is very poor protective sensation on the bottom of his left foot. Today his erythema has decreased significantly while on antibiotics IV. I examined his wound today and it has some central necrotic debris and is less foul-smelling. His ABIs show that he has a potential for wound healing but he wishes not to proceed with any type of deep amputation at this time but would rather do a skin debridement and see what he could heal by getting his diabetes under better control. His hemoglobin A1c is 9.9 and he admits that he has not been taking care of his diabetes which appears somewhat brittle. TheABIs are optimistic however his general care needs to be improved. I think that we could do a debridement of his foot and keep him on Plavix and aspirin at the same time. I assume that his stents are Plavix dependent. We are unable to get his present records from [place]. I discussed the risks and benefits of the debridement with him in detail today and he is willing to have this done and probably follow-up as an outpatient with the wound clinic. I left a message at the wound clinic clinic to touch base with us for a strategy for this wound. Objective - Vital Signs/Intake & Output Vital Signs: Vital Signs x48h Temp Pulse Resp BP Pulse Ox 12/08/19 08:00 36.9 C 97 18 137/82 H 96 12/08/19 05:17 36.9 C 91 18 143/77 H 94 Intake & Output: Intake & Output 12/05/19 12/06/19 12/07/19 12/08/19 23:59 23:59 23:59 23:59 Intake Total 600 3768 850 Output Total 180 1115 1750 Balance 420 5706 -900 - Lab Results Fish Bones: 12/08/19 05:08 12/08/19 05:08 Other Labs: Lab Results x24hrs 12/08/19 12/08/19 12/08/19 Range/Units 07:42 05:08 05:08 WBC 4.1 L (4.8-10.8) x10^3/uL RBC 3.60 L (4.70-6.10) 10^6/uL Hgb 10.9 L (14.0-18.0) g/dL Hct 32.9 L (42.0-52.0) % MCV 91.4 (80.0-94.0) fL MCH 30.3 (27.0-31.0) pg MCHC 33.1 (32.0-36.0) g/dL RDW 12.2 (12.0-15.0) % Plt Count 324 (130-450) 10^3/uL MPV 9.3 (7.4-11.4) fL Neut # (Auto) 2.6 (1.5-6.6) 10^3/uL Lymph # (Auto) 0.8 L (1.5-3.5) 10^3/uL [place] # (Auto) 0.6 (0.0-1.0) 10^3/uL Eos # (Auto) 0.1 (0.0-0.7) 10^3/uL Baso # (Auto) 0.0 (0.0-0.1) 10^3/uL Absolute Nucleated RBC 0.00 x10^3/uL Nucleated RBC % 0.0 /100WBC Sodium 133 L (135-145) mmol/L Potassium 4.5 (3.5-5.0) mmol/L Chloride 100 L (101-111) mmol/L Carbon Dioxide 23 (21-32) mmol/L Anion Gap 10.0 (6-13) BUN 23 H (6-20) mg/dL Creatinine 1.3 H (0.6-1.2) mg/dL Estimated GFR (MDRD) 56 L (>89) Glucose 333 H (70-100) mg/dL POC Whole Bld Glucose 293 H (70 - 100) mg/dL Estimat Average Glucose (70-100) mg/dL Hemoglobin A1c % (4.27-6.07) % Calcium 8.7 (8.5-10.3) mg/dL 12/07/19 12/07/19 12/07/19 Range/Units 21:11 16:45 11:10 WBC (4.8-10.8) x10^3/uL RBC (4.70-6.10) 10^6/uL Hgb (14.0-18.0) g/dL Hct (42.0-52.0) % MCV (80.0-94.0) fL MCH (27.0-31.0) pg MCHC (32.0-36.0) g/dL RDW (12.0-15.0) % Plt Count (130-450) 10^3/uL MPV (7.4-11.4) fL Neut # (Auto) (1.5-6.6) 10^3/uL Lymph # (Auto) (1.5-3.5) 10^3/uL [place] # (Auto) (0.0-1.0) 10^3/uL Eos # (Auto) (0.0-0.7) 10^3/uL Baso # (Auto) (0.0-0.1) 10^3/uL Absolute Nucleated RBC x10^3/uL Nucleated RBC % /100WBC Sodium (135-145) mmol/L Potassium (3.5-5.0) mmol/L Chloride (101-111) mmol/L Carbon Dioxide (21-32) mmol/L Anion Gap (6-13) BUN (6-20) mg/dL Creatinine (0.6-1.2) mg/dL Estimated GFR (MDRD) (>89) Glucose (70-100) mg/dL POC Whole Bld Glucose 270 H 168 H 205 H (70 - 100) mg/dL Estimat Average Glucose (70-100) mg/dL Hemoglobin A1c % (4.27-6.07) % Calcium (8.5-10.3) mg/dL 12/07/19 Range/Units 04:45 WBC (4.8-10.8) x10^3/uL RBC (4.70-6.10) 10^6/uL Hgb (14.0-18.0) g/dL Hct (42.0-52.0) % MCV (80.0-94.0) fL MCH (27.0-31.0) pg MCHC (32.0-36.0) g/dL RDW (12.0-15.0) % Plt Count (130-450) 10^3/uL MPV (7.4-11.4) fL Neut # (Auto) (1.5-6.6) 10^3/uL Lymph # (Auto) (1.5-3.5) 10^3/uL [place] # (Auto) (0.0-1.0) 10^3/uL Eos # (Auto) (0.0-0.7) 10^3/uL Baso # (Auto) (0.0-0.1) 10^3/uL Absolute Nucleated RBC x10^3/uL Nucleated RBC % /100WBC Sodium (135-145) mmol/L Potassium (3.5-5.0) mmol/L Chloride (101-111) mmol/L Carbon Dioxide (21-32) mmol/L Anion Gap (6-13) BUN (6-20) mg/dL Creatinine (0.6-1.2) mg/dL Estimated GFR (MDRD) (>89) Glucose (70-100) mg/dL POC Whole Bld Glucose (70 - 100) mg/dL Estimat Average Glucose 237 H (70-100) mg/dL Hemoglobin A1c % 9.9 H (4.27-6.07) % Calcium (8.5-10.3) mg/dL Assessment/Plan - Problem List (1) Osteomyelitis Qualifiers: Osteomyelitis type: unspecified type Osteomyelitis location: foot Later ality: left Qualified Code(s): M86.9 - Osteomyelitis, unspecified
[2019-12-08] MEDS: SODIUM CHLORIDE FLUSH 0.9% 10 ML SYRINGE IVP PRN ×2 (11:26→14:26)
--- NOTE | 2019-12-08 11:35 | ANESTHESIA ---
Pre-Anesthesia VS, & Labs - Diagnosis Diagnosis Chronic vascular insufficiency and chronic left fifth metatarsal ulcer with underlying osteomyelitis. - Procedure L foot debridement Vital Signs: Temp Pulse Resp BP Pulse Ox 36.9 C 97 18 137/82 H 96 12/08/19 08:00 12/08/19 08:00 12/08/19 08:00 12/08/19 08:00 12/08/19 08:00 Height 6 ft 2 in Weight (kg) 108 kg Body Mass Index 30.5 - Lab Results Current Lab Results: Laboratory Tests 12/08/19 11:20: POC Whole Bld Glucose 280 H 12/08/19 07:42: POC Whole Bld Glucose 293 H 12/08/19 05:08: Sodium 133 L, Potassium 4.5, Chloride 100 L, Carbon Dioxide 23, Anion Gap 10.0, BUN 23 H, Creatinine 1.3 H, Estimated GFR (MDRD) 56 L, Glucose 333 H, Calcium 8.7 12/08/19 05:08: WBC 4.1 L, RBC 3.60 L, Hgb 10.9 L, Hct 32.9 L, MCV 91.4, MCH 30.3, MCHC 33.1, RDW 12.2, Plt Count 324, MPV 9.3, Neut # (Auto) 2.6, Lymph # (Auto) 0.8 L, [place] # (Auto) 0.6, Eos # (Auto) 0.1, Baso # (Auto) 0.0, Absolute Nucleated RBC 0.00, Nucleated RBC % 0.0 12/07/19 21:11: POC Whole Bld Glucose 270 H 12/07/19 16:45: POC Whole Bld Glucose 168 H 12/07/19 11:10: POC Whole Bld Glucose 205 H 12/07/19 08:09: PT 14.7 H, INR 1.3 H 12/07/19 08:09: ESR 66 H 12/07/19 07:22: POC Whole Bld Glucose 113 H 12/07/19 04:45: Total Bilirubin 0.8, Direct Bilirubin 0.2, AST 11, ALT 13, Alkaline Phosphatase 65, C-React Prot High Sens 71.9, Total Protein 6.2 L, Albumin 2.9 L, Globulin 3.3 12/07/19 04:45: Estimat Average Glucose 237 H, Hemoglobin A1c % 9.9 H 12/07/19 04:45: Sodium 137, Potassium 3.8, Chloride 103, Carbon Dioxide 25, Anion Gap 9.0, BUN 15, Creatinine 1.1, Estimated GFR (MDRD) 67 L, Glucose 112 H, Calcium 8.9 12/07/19 04:45: WBC 7.7, RBC 3.52 L, Hgb 10.8 L, Hct 32.5 L, MCV 92.3, MCH 30.7, MCHC 33.2, RDW 12.3, Plt Count 338, MPV 9.3, Neut # (Auto) 5.7, Lymph # (Auto) 1.0 L, [place] # (Auto) 0.8, Eos # (Auto) 0.2, Baso # (Auto) 0.0, Absolute Nucleated RBC 0.00, Nucleated RBC % 0.0 12/06/19 23:48: POC Whole Bld Glucose 128 H 12/06/19 21:15: POC Whole Bld Glucose 143 H 12/06/19 15:35: Sodium 134 L, Potassium 4.8, Chloride 98 L, Carbon Dioxide 29, Anion Gap 7.0, BUN 16, Creatinine 1.2, Estimated GFR (MDRD) 61 L, Glucose 230 H, Calcium 9.4, C-Reactive Protein 8.2 H 12/06/19 15:35: ESR 74 H 12/06/19 15:35: WBC 6.6, RBC 4.23 L, Hgb 13.1 L, Hct 38.6 L, MCV 91.3, MCH 31.0, MCHC 33.9, RDW 12.2, Plt Count 406, MPV 9.1, Neut # (Auto) 5.3, Lymph # (Auto) 0.7 L, [place] # (Auto) 0.3, Eos # (Auto) 0.2, Baso # (Auto) 0.0, Absolute Nucleated RBC 0.00, Nucleated RBC % 0.0 Fish Bones: 12/08/19 05:08 12/08/19 05:08 Home Medications and Allergies Home Medications: Ambulatory Orders Aspirin 81 mg PO DAILY 12/07/19 Atorvastatin [Lipitor] 40 mg PO DAILY 12/07/19 Carvedilol [Coreg] 25 mg PO DAILY 12/07/19 Clopidogrel [Plavix] 75 mg PO DAILY 12/07/19 Losartan Potassium 50 mg PO DAILY 12/07/19 Metoclopramide [Reglan] 10 mg PO TID 12/07/19 Active Medications Acetaminophen (Tylenol) 650 mg PO Q6HR PRN PRN Reason: Pain 1 to 4 Amlodipine Besylate (Norvasc) 5 mg PO DAILY [facility] Last Admin: 12/08/19 08:01 Dose: 5 mg Documented by: Aspirin ([facility] Aspirin) 81 mg PO DAILY [facility] Last Admin: 12/08/19 08:01 Dose: 81 mg Documented by: Atorvastatin Calcium (Lipitor) 40 mg PO QPM [facility] Last Admin: 12/07/19 21:04 Dose: 40 mg Documented by: Carvedilol (Coreg) 12.5 mg PO BID [facility] Last Admin: 12/08/19 08:01 Dose: 12.5 mg Documented by: Clopidogrel Bisulfate (Plavix) 75 mg PO DAILY [facility] Last Admin: 12/08/19 08:00 Dose: 75 mg Documented by: Cyclobenzaprine HCl (Flexeril) 10 mg PO QPM PRN PRN Reason: Spasms Heparin Sodium (Porcine) () 5,000 unit SUBQ BID [facility] Last Admin: 12/08/19 08:08 Dose: 5,000 unit Documented by: Cefepime HCl 2 gm/ Sodium (Chloride) 100 mls @ 200 mls/hr IV Q8H [facility] Last Infusion: 12/08/19 03:33 Dose: Infused Documented by: Vancomycin HCl 1.75 gm/ Sodium (Chloride) 500 mls @ 250 mls/hr IV Q12H [facility] Last Infusion: 12/08/19 02:26 Dose: Infused Documented by: Insulin Aspart (Novolog) 2 - 10 unit SUBQ 0800,1200,1700,2100 [facility]; Protocol Last Admin: 12/08/19 08:08 Dose: 8 unit Documented by: Insulin Glargine (Lantus Solostar) 25 unit SUBQ BID [facility] Last Admin: 12/08/19 08:08 Dose: 25 unit Documented by: Losartan Potassium (Cozaar) 50 mg PO DAILY [facility] Last Admin: 12/08/19 08:00 Dose: 50 mg Documented by: Metoclopramide HCl (Reglan) 10 mg PO TID [facility] Last Admin: 12/08/19 05:16 Dose: 10 mg Documented by: Multivitamins/Minerals (Theragran M) 1 tab PO DAILYWM [facility] Last Admin: 12/08/19 08:00 Dose: 1 tab Documented by: Ondansetron HCl (Zofran Inj) 4 mg IVP Q4HR PRN PRN Reason: Nausea / Vomiting Oxycodone HCl (Roxicodone) 5 mg PO Q4HR PRN PRN Reason: Pain 5 to 7 Last Admin: 12/08/19 02:13 Dose: 5 mg Documented by: Senna (Senokot) 8.6 mg PO DAILY PRN PRN Reason: Constipation Sodium Chloride (Normal Saline Flush 0.9%) 10 ml IVP PRN PRN PRN Reason: NEEDED PER PROVIDER ORDERS Last Admin: 12/07/19 06:17 Dose: 10 ml Documented by: Sodium Chloride (Normal Saline Flush 0.9%) 10 ml IVP 0100,0900,1700 [facility] Last Admin: 12/08/19 08:03 Dose: 10 ml Documented by: Tamsulosin HCl (Flomax) 0.4 mg PO DAILY [facility] Last Admin: 12/08/19 08:00 Dose: 0.4 mg Documented by: Insulin Regular Human [NovoLIN R] 2 - 10 unit SUBQ TIDWM 06/09/19 Tamsulosin [Flomax] 0.4 mg PO DAILY 06/09/19 Insulin NPH Human [Humulin N] 35 unit SUBQ BID 06/10/19 Aspirin 81 mg PO DAILY 12/07/19 Atorvastatin [Lipitor] 40 mg PO DAILY 12/07/19 Carvedilol [Coreg] 25 mg PO DAILY 12/07/19 Clopidogrel [Plavix] 75 mg PO DAILY 12/07/19 Losartan Potassium 50 mg PO DAILY 12/07/19 Metoclopramide [Reglan] 10 mg PO TID 12/07/19 Allergies/Adverse Reactions: Allergies Allergy/AdvReac Type Severity Reaction Status Date / Time No Known Drug Allergies Allergy Verified 12/06/19 14:42 Anes History & Medical History - Anesthetic History Anesthesia Complications: reports: No previous complications Family history of Anesthesia Complications: Denies Family history of Malignant Hyperthermia: Denies - Medical History Cardiovascular: reports: Hypertension, High cholesterol, Coronary artery disease (stent placement 08/2019) Pulmonary: reports: None Gastrointestinal: reports: GERD Urinary: reports: Benign prostate hypertrophy Neuro: reports: None Musculoskeletal: reports: Gout Endocrine/Autoimmune: reports: Type 1 diabetes Blood Disorders: reports: None Skin: reports: None Smoking Status: Never smoker - Surgical History General: Appendectomy Orthopedic: Amputation (right lateral 3 toes), Other Plan Anesthesia Type: General, MAC Consent for Procedure(s) Verified and Reviewed: Yes Code Status: Attempt Resuscitation ASA classification: 3-Severe systemic disease Is this case an emergency?: No
[2019-12-08] MEDS ORDERED: ePHEDrine 50 MG/ML VIAL IVP PRN (11:40)
[2019-12-08] MEDS ORDERED: ONDANSETRON 4 MG/2 ML VIAL IVP PRN (11:40)
[2019-12-08] MEDS ORDERED: METOCLOPRAMIDE 10 MG/2 ML VIAL IVP PRN (11:40)
[2019-12-08] MEDS ORDERED: MORPHINE 2 MG/ML CARPUJECT IVP PRN (11:40)
[2019-12-08] MEDS ORDERED: ATROPINE ABBOJECT 1 MG/10 ML SYRINGE IVP PRN (11:40)
[2019-12-08] MEDS ORDERED: fentaNYL 100 MCG/2 ML VIAL IVP PRN (11:40)
[2019-12-08] MEDS ORDERED: NALOXONE 0.4 MG/ML VIAL IVP PRN (11:40)
[2019-12-08] MEDS ORDERED: HYDROmorphone 0.5 MG/0.5 ML SYRINGE IVP PRN (11:40)
[2019-12-08] MEDS ORDERED: LACTATED RINGERS 1,000 ML IV SCH (12:00)
--- NOTE | 2019-12-08 12:11 | CT Report ---
PROCEDURE: ANGIO LOWER EXT W/WO - LT INDICATIONS: PVD, slow healing of wound left foot reported. History of hypertension and diabetes. Rep orted normal MARCE evaluation. TECHNIQUE: Targeted left pelvis and lower extremity arterial phase CT scanning was performed, with golden bsequent parasagittal and paracoronal reformatting should imaging from source axial data. Also, surfa ce rendering and MIP projection imaging over the pelvis and left lower extremity was performed. COMPARISON: MARCE ultrasound same day reviewed, prior foot MRI on the left. FINDINGS: The axial scanning (6 just below the aortic bifurcation. Within the left and right common iliac arter ies there is mild eccentric calcific plaquing, without significant stenosis. The common iliac artery bifurcation on the left the external and internal iliac arteries are widely p atent, with mild eccentric calcific and soft plaque at the internal carotid iliac artery. No signific ant stenosis. The external iliac artery transit tibial peroneal trunk immediately below is patent, wi th scattered foci of appreciable calcific and soft plaque producing moderate stenosis along the cours e of the anterior tibial artery which appears to remain patent to across the ankle into the foot. Mul tiple segmental level stenoses are present, however, likely reducing anterior tibial arterial flow in to the foot significantly from above. The peroneal artery is patent extending to the ankle level., But there is at least a 70% stenosis at its origin, over a short segment, seen on CT series 7 image 363. The posterior tibial artery is leoncio nant, patent, and shows scattered foci of mild calcific and soft plaque best seen at its origin, but demonstrating less than 50% stenosis. Scattered mild soft plaque is present within this vessel as it approaches the ankle level, without significant stenosis. It crosses the ankle joint, and extends dis tally into the foot. Note is made of a deep ulceration involving the lateral aspect of the midfoot co ntaining gas, and this extends to the fifth metatarsal head level where osseous irregularity is prese nt to the degree that osteomyelitis likely is present. IMPRESSION: The atherosclerotic irregularity present is mild to moderate in areas as discussed above, but three-v essel runoff extends to the ankle level, and 2 vessel runoff extends across the ankle into the foot. The posterior tibial artery is dominant, shows no significant stenosis, and only a mild degree of kwame cific and soft plaquing. The vessel is widely patent as it crosses the ankle and extends into the shabana ntar foot. The anterior tibial artery is more prominently degraded by involvement with atheroscleroti c plaquing, but it remains patent and also crosses the ankle into the ventral foot. Note is made of a deep soft tissue ulceration containing gas extending into the area near the fifth m etatarsal head where the osseous margin of the metatarsal head is irregular with gas immediately quintin cent and with an appearance strongly suggestive of active osteomyelitis at that site. Reviewed by: Randall De Dios MD on 12/08/2019 12:10 PM PDT Approved by: Randall De Dios MD on 12/08/2019 12:10 PM PDT Station ID: [id number]
--- NOTE | 2019-12-08 12:42 | PROVIDER PROGRESS NOTE ---
Assessment/Plan - Problem List (1) Osteomyelitis Qualifiers: Osteomyelitis type: unspecified type Osteomyelitis location: foot Laterality: left Qualified Code(s): M86.9 - Osteomyelitis, unspecified Assessment/Plan: He had a normal white blood count, today the WBC count went down to 4.1. ESR improved from 77 to 64 The open wound had drainage that was sent for culture from the [facility] clinic on 12/06/2019. It is growing E. coli which is pansensitive also an Enterococcus that still needs sensitivities to be done. This was discussed with pt and daughter at bedside. Continue with his empiric Vanco for the enterococcus and the iv Cefepime. Duration of iv antibiotic treatment will depend on whether the wound is debrided or amputated with margins obtained. The orthopedic surgeon wanted evaluation regarding vascular flow, the MARCE and CTA of the legs showed no significant stenoses. Plan for taking to the OR was postponed today, because the results were available after 10 am, and patient ate breakfast this morning, and with his gastroparesis, Anesthesia recommends that his surgery be done tomorrow morning. (2) KI (acute kidney injury) Assessment/Plan: Creatinine increased from normal to 1.3 and BUN up also. Will assure that he is getting adequate IV hydration, especially during a 12- hour n.p.o. waiting period for surgery. Follow BMP daily (3) Coronary artery disease Assessment/Plan: Patient had OK in June 2019. He had a subsequent coronary angiogram several weeks later. He did receive a stent. He is on aspirin and Plavix. We have requested the coronary angiogram results from [facility] and have not received them yet. Will request records again today. Continue his beta-norberto, amlodipine, statin, aspirin and Plavix. (4) IDDM (insulin dependent diabetes mellitus) Assessment/Plan: Continue with long-acting insulin and sliding scale coverage. Because he will be n.p.o. for 12 hours for the upcoming surgery, we will not add nutritional insulin yet (5) Gastroparesis diabeticorum Assessment/Plan: Yesterday he had nausea, today no symptoms, has been stable, eating. (6) Hyperlipidemia Assessment/Plan: He is on his usual home meds for this (7) Hypertension Qualifiers: Hypertension type: essential hypertension Qualified Code(s): I10 - Essential (primary) hypertension Assessment/Plan: He is on his usual home meds for this (8) BPH (benign prostatic hyperplasia) Assessment/Plan: He is on his usual home meds for this (9) GERD (gastroesophageal reflux disease) Assessment/Plan: He is on GERD meds. (10) Anemia Assessment/Plan: Very likely has anemia of chronic disease, also has some hemo-dilutional drop in hemoglobin. We will check B12, folate levels and iron stores and replace if low - Current Meds Current Meds: Current Medications Generic Name Dose Route Start Last Admin Trade Name Freq PRN Reason Stop Dose Admin Amlodipine Besylate 5 mg 12/08/19 09:00 12/08/19 08:01 Norvasc PO 5 mg DAILY NATHANIEL Administration Aspirin 81 mg 12/08/19 09:00 12/08/19 08:01 [facility] Santos Aspirin PO 81 mg DAILY NATHANIEL Administration Atorvastatin Calcium 40 mg 12/07/19 21:00 12/07/19 21:04 Lipitor PO 40 mg QPM NATHANIEL Administration Carvedilol 12.5 mg 12/07/19 21:00 12/08/19 08:01 Coreg PO 12.5 mg BID NATHANIEL Administration Clopidogrel Bisulfate 75 mg 12/07/19 13:11 12/08/19 08:00 Plavix PO 75 mg DAILY NATHANIEL Administration Heparin Sodium (Porcine) 5,000 unit 12/06/19 21:00 12/08/19 08:08 SUBQ 5,000 unit BID NATHANIEL Administration Cefepime HCl 2 gm/ Sodium 100 mls @ 200 mls/hr 12/07/19 03:00 12/08/19 11:25 Chloride IV 200 mls/hr Q8H NATHANIEL Administration Vancomycin HCl 1.75 gm/ Sodium 500 mls @ 250 mls/hr 12/08/19 00:00 12/08/19 02:26 Chloride IV Infused Q12H NATHANIEL Infusion Insulin Aspart 2 - 10 unit 12/07/19 12:00 12/08/19 08:08 Novolog SUBQ 8 unit 0800,1200,1700,2100 NATHANIEL Administration Protocol Insulin Glargine 25 unit 12/08/19 09:00 12/08/19 08:08 Lantus Solostar SUBQ 25 unit BID NATHANIEL Administration Losartan Potassium 50 mg 12/07/19 16:00 12/08/19 08:00 Cozaar PO 50 mg DAILY NATHANIEL Administration Metoclopramide HCl 10 mg 12/07/19 14:00 12/08/19 05:16 Reglan PO 10 mg TID NATHANIEL Administration Multivitamins/Minerals 1 tab 12/07/19 17:00 12/08/19 08:00 Theragran M PO 1 tab DAILYWM NATHANIEL Administration Oxycodone HCl 5 mg 12/06/19 19:37 12/08/19 02:13 Roxicodone PO 5 mg Q4HR PRN Administration Pain 5 to 7 Sodium Chloride 10 ml 12/06/19 19:37 12/08/19 11:26 Normal Saline Flush 0.9% IVP 10 ml PRN PRN Administration NEEDED PER PROVIDER ORDERS Sodium Chloride 10 ml 12/07/19 01:00 12/08/19 08:03 Normal Saline Flush 0.9% IVP 10 ml 0100,0900,1700 NATHANIEL Administration Tamsulosin HCl 0.4 mg 12/08/19 09:00 12/08/19 08:00 Flomax PO 0.4 mg DAILY NATHANIEL Administration - Lab Result Fish Bone Diagrams: 12/08/19 05:08 12/08/19 05:08 - Additional Planning My Orders: My Active Orders 12/07/19 12:00 Insulin Aspart [NovoLOG] 2 - 10 unit SUBQ 0800,1200,1700,2100 12/07/19 13:10 Senna [Senokot] 8.6 mg PO DAILY PRN 12/07/19 13:11 Clopidogrel [Plavix] 75 mg PO DAILY 12/07/19 14:00 Metoclopramide [Reglan] 10 mg PO TID 12/07/19 16:00 Losartan [Cozaar] 50 mg PO DAILY 12/07/19 17:00 Multivitamin W/Minerals [Theragran M] 1 tab PO DAILYWM 12/07/19 18:22 Cyclobenzaprine [Flexeril] 10 mg PO QPM PRN 12/07/19 21:00 Atorvastatin [Lipitor] 40 mg PO QPM carvediloL [Coreg] 12.5 mg PO BID 12/08/19 00:00 Vancomycin Inj [Vancomycin] 1.75 gm Sodium Chloride 0.9% [Normal Saline 0.9%] 500 ml IV Q12H 12/08/19 09:00 Aspirin Chewable [[facility] Santos Aspirin] 81 mg PO DAILY Tamsulosin [Flomax] 0.4 mg PO DAILY amLODIPine [Norvasc] 5 mg PO DAILY 12/08/19 Lunch Carb-controlled Diet [DIET] Subjective - Subjective Patient Reports: Feeling Better (Pain is under better control. He is out of bed in a chair today, legs elevated) Objective Vital Signs: Vital Signs - 24 hr 12/07/19 12/07/19 12/07/19 15:43 20:00 21:07 Temperature 36.6 C 37.2 C 37.2 C Heart Rate [ 75 78 78 Brachial] Respiratory 16 20 18 Rate Blood Pressure 120/71 [Left Brachial artery] Blood Pressure 129/77 120/69 [Right Brachial artery] O2 Saturation 97 95 95 12/08/19 12/08/19 12/08/19 00:00 05:17 08:00 Temperature 37.0 C 36.9 C 36.9 C Heart Rate [ 86 91 97 Brachial] Respiratory 16 18 18 Rate Blood Pressure [Left Brachial artery] Blood Pressure 142/82 H 143/77 H 137/82 H [Right Brachial artery] O2 Saturation 95 94 96 Oxygen O2 Source Room air I&O (Last 24 Hrs): Intake and Output Totals x24h 12/06/19 12/07/19 12/08/19 23:59 23:59 23:59 Intake Total 600 3768 1210 Output Total 180 1115 1750 Balance 420 1553 -540 General: Alert, Oriented x3 HEENT: Mucous membr. 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 amputated toes) - Results Results: Laboratory Results WBC 4.1 x10^3/uL (4.8-10.8) L 12/08/19 05:08 RBC 3.60 10^6/uL (4.70-6.10) L 12/08/19 05:08 Hgb 10.9 g/dL (14.0-18.0) L 12/08/19 05:08 Hct 32.9 % (42.0-52.0) L 12/08/19 05:08 MCV 91.4 fL (80.0-94.0) 12/08/19 05:08 MCH 30.3 pg (27.0-31.0) 12/08/19 05:08 MCHC 33.1 g/dL (32.0-36.0) 12/08/19 05:08 RDW 12.2 % (12.0-15.0) 12/08/19 05:08 Plt Count 324 10^3/uL (130-450) 12/08/19 05:08 MPV 9.3 fL (7.4-11.4) 12/08/19 05:08 Neut # (Auto) 2.6 10^3/uL (1.5-6.6) 12/08/19 05:08 Lymph # (Auto) 0.8 10^3/uL (1.5-3.5) L 12/08/19 05:08 [place] # (Auto) 0.6 10^3/uL (0.0-1.0) 12/08/19 05:08 Eos # (Auto) 0.1 10^3/uL (0.0-0.7) 12/08/19 05:08 Baso # (Auto) 0.0 10^3/uL (0.0-0.1) 12/08/19 05:08 Absolute Nucleated RBC 0.00 x10^3/uL 12/08/19 05:08 Nucleated RBC % 0.0 /100WBC 12/08/19 05:08 ESR 66 mm/Hr (0-20) H 12/07/19 08:09 PT 14.7 secs (9.9-12.6) H 12/07/19 08:09 INR 1.3 (0.8-1.2) H 12/07/19 08:09 Sodium 133 mmol/L (135-145) L 12/08/19 05:08 Potassium 4.5 mmol/L (3.5-5.0) 12/08/19 05:08 Chloride 100 mmol/L (101-111) L 12/08/19 05:08 Carbon Dioxide 23 mmol/L (21-32) 12/08/19 05:08 Anion Gap 10.0 (6-13) 12/08/19 05:08 BUN 23 mg/dL (6-20) H 12/08/19 05:08 Creatinine 1.3 mg/dL (0.6-1.2) H 12/08/19 05:08 Estimated GFR (MDRD) 56 (>89) L 12/08/19 05:08 Glucose 333 mg/dL (70-100) H 12/08/19 05:08 POC Whole Bld Glucose 289 mg/dL (70 - 100) H 12/08/19 12:30 Estimat Average Glucose 237 mg/dL (70-100) H 12/07/19 04:45 Hemoglobin A1c % 9.9 % (4.27-6.07) H 12/07/19 04:45 Calcium 8.7 mg/dL (8.5-10.3) 12/08/19 05:08 Total Bilirubin 0.8 mg/dL (0.2-1.0) 12/07/19 04:45 Direct Bilirubin 0.2 mg/dL (0.1-0.5) 12/07/19 04:45 AST 11 IU/L (10-42) 12/07/19 04:45 ALT 13 IU/L (10-60) 12/07/19 04:45 Alkaline Phosphatase 65 IU/L (42-121) 12/07/19 04:45 C-Reactive Protein 8.2 mg/dL (0-1.0) H 12/06/19 15:35 C-React Prot High Sens 71.9 mg/L 12/07/19 04:45 Total Protein 6.2 g/dL (6.7-8.2) L 12/07/19 04:45 Albumin 2.9 g/dL (3.2-5.5) L 12/07/19 04:45 Globulin 3.3 g/dL (2.1-4.2) 12/07/19 04:45 - Procedures Procedures: Procedures INSERTION OF INFUSION DEV INTO SUP VENA CAVA, PERC APPROACH (07/21/19) INSERTION OF INFUSION DEVICE INTO R ATRIUM, PERC APPROACH (06/09/19) ULTRASONOGRAPHY OF SUPERIOR VENA CAVA, GUIDANCE (06/09/19)
[2019-12-08] MEDS: VANCOMYCIN INJ 1.75 GM in SODIUM CHLORIDE 0.9% 500 ML IV SCH (14:27)
[2019-12-08] MEDS: ATORVASTATIN 40 MG TABLET PO SCH (21:08)
[2019-12-09] MEDS: oxyCODONE 5 MG TABLET PO PRN (00:10)
[2019-12-09] MEDS: ACETAMINOPHEN 325 MG TABLET PO PRN (00:10)
[2019-12-09] MEDS: METOCLOPRAMIDE 10 MG TABLET PO SCH ×3 (00:11→21:26)
[2019-12-09] MEDS: VANCOMYCIN INJ 1.75 GM in SODIUM CHLORIDE 0.9% 500 ML IV SCH (00:14)
[2019-12-09] MEDS: SODIUM CHLORIDE FLUSH 0.9% 10 ML SYRINGE IVP SCH ×3 (02:12→17:15)
[2019-12-09] MEDS: CEFEPIME 2 GM in SODIUM CHLORIDE 0.9% MINIBAG 100 ML IV SCH ×3 (02:48→20:54)
[2019-12-09 05:17] LABS: BASOPHILS % (AUTO) 0.5 %; EOSINOPHILS # (AUTO) 0.2 10^3/uL (0.0-0.7); EOSINOPHILS % (AUTO) 4.4 %; HGB - HEMOGLOBIN 10.1 g/dL (14.0-18.0); LYMPHOCYTES # (AUTO) 0.8 10^3/uL (1.5-3.5); LYMPHOCYTES % (AUTO) 21.5 %; MEAN CORPUSCULAR HEMOGLOBIN 29.8 pg (27.0-31.0); MEAN CORPUSCULAR HGB CONC 32.5 g/dL (32.0-36.0); MEAN CORPUSCULAR VOLUME 91.7 fL (80.0-94.0); MONOCYTES # (AUTO) 0.6 10^3/uL (0.0-1.0); MONOCYTES % (AUTO) 15.1 %; NEUTROPHILS # (AUTO) 2.3 10^3/uL (1.5-6.6); NEUTROPHILS % (AUTO) 58.2 %; PLT - PLATELET COUNT 353 10^3/uL (130-450); RED BLOOD COUNT 3.39 10^6/uL (4.70-6.10); RED CELL DISTRIBUTION WIDTH 12.2 % (12.0-15.0); WHITE BLOOD COUNT 3.9 x10^3/uL (4.8-10.8)
[2019-12-09 05:35] LABS: CALCIUM 8.7 mg/dL (8.5-10.3); CREATININE 1.2 mg/dL (0.6-1.2)
[2019-12-09 05:53] LABS: FOLATE 20.07 ng/mL (5.90 - >24.8)
[2019-12-09] MEDS: DEXTROSE 5%-0.45% NACL 1,000 ML IV SCH ×2 (06:59→20:43)
[2019-12-09] MEDS: MULTIVITAMIN W/MINERALS TABLET PO SCH ×2 (07:53→09:49)
[2019-12-09] MEDS: INSULIN ASPART 300 UNIT/3 ML PEN SUBQ SCH ×4 (07:54→21:26)
--- NOTE | 2019-12-09 08:00 | PROVIDER PROGRESS NOTE ---
Subjective - Prog Note Date Prog Note Date: 12/09/19 Prog Note Time: 07:50 - Subjective Pt reports feeling: No change Objective - Vital Signs/Intake & Output Vital Signs: Vital Signs x48h Temp Pulse Resp BP Pulse Ox 12/09/19 07:30 36.4 C L 79 16 152/87 H 97 12/09/19 04:50 36.4 C L 75 16 135/76 H 99 Intake & Output: Intake & Output 12/06/19 12/07/19 12/08/19 12/09/19 23:59 23:59 23:59 23:59 Intake Total 600 3768 2800 1600 Output Total 180 1115 3300 1075 Balance 420 2653 -500 525 - Objective General Appearance: positive: No acute distress Eyes Bilateral: positive: Normal inspection Extremities: positive: Other (No change) - Lab Results Fish Bones: 12/09/19 05:00 12/09/19 05:00 Other Labs: Lab Results x24hrs 12/09/19 12/09/19 12/09/19 Range/Units 07:23 06:31 05:24 WBC (4.8-10.8) x10^3/uL RBC (4.70-6.10) 10^6/uL Hgb (14.0-18.0) g/dL Hct (42.0-52.0) % MCV (80.0-94.0) fL MCH (27.0-31.0) pg MCHC (32.0-36.0) g/dL RDW (12.0-15.0) % Plt Count (130-450) 10^3/uL MPV (7.4-11.4) fL Neut # (Auto) (1.5-6.6) 10^3/uL Lymph # (Auto) (1.5-3.5) 10^3/uL Baker # (Auto) (0.0-1.0) 10^3/uL Eos # (Auto) (0.0-0.7) 10^3/uL Baso # (Auto) (0.0-0.1) 10^3/uL Absolute Nucleated RBC x10^3/uL Nucleated RBC % /100WBC Sodium (135-145) mmol/L Potassium (3.5-5.0) mmol/L Chloride (101-111) mmol/L Carbon Dioxide (21-32) mmol/L Anion Gap (6-13) BUN (6-20) mg/dL Creatinine (0.6-1.2) mg/dL Estimated GFR (MDRD) (>89) Glucose (70-100) mg/dL POC Whole Bld Glucose 94 83 87 (70 - 100) mg/dL Calcium (8.5-10.3) mg/dL Iron (45-182) ug/dL TIBC (250-450) ug/dL % Saturation (20-50) % Transferrin (180-329) mg/dL Vitamin B12 (180-914) pg/mL Folate (5.90 - >24.8) ng/mL Nasal Screen MRSA (PCR) (NEGATIVE) 12/09/19 12/09/19 12/09/19 Range/Units 05:00 05:00 05:00 WBC 3.9 L (4.8-10.8) x10^3/uL RBC 3.39 L (4.70-6.10) 10^6/uL Hgb 10.1 L (14.0-18.0) g/dL Hct 31.1 L (42.0-52.0) % MCV 91.7 (80.0-94.0) fL MCH 29.8 (27.0-31.0) pg MCHC 32.5 (32.0-36.0) g/dL RDW 12.2 (12.0-15.0) % Plt Count 353 (130-450) 10^3/uL MPV 9.0 (7.4-11.4) fL Neut # (Auto) 2.3 (1.5-6.6) 10^3/uL Lymph # (Auto) 0.8 L (1.5-3.5) 10^3/uL Baker # (Auto) 0.6 (0.0-1.0) 10^3/uL Eos # (Auto) 0.2 (0.0-0.7) 10^3/uL Baso # (Auto) 0.0 (0.0-0.1) 10^3/uL Absolute Nucleated RBC 0.00 x10^3/uL Nucleated RBC % 0.0 /100WBC Sodium 139 (135-145) mmol/L Potassium 4.0 (3.5-5.0) mmol/L Chloride 106 (101-111) mmol/L Carbon Dioxide 26 (21-32) mmol/L Anion Gap 7.0 (6-13) BUN 21 H (6-20) mg/dL Creatinine 1.2 (0.6-1.2) mg/dL Estimated GFR (MDRD) 61 L (>89) Glucose 99 (70-100) mg/dL POC Whole Bld Glucose (70 - 100) mg/dL Calcium 8.7 (8.5-10.3) mg/dL Iron 44 L (45-182) ug/dL TIBC 188 L (250-450) ug/dL % Saturation 23 (20-50) % Transferrin 134 L (180-329) mg/dL Vitamin B12 605 (180-914) pg/mL Folate 20.07 (5.90 - >24.8) ng/mL Nasal Screen MRSA (PCR) (NEGATIVE) 12/08/19 12/08/19 12/08/19 Range/Units 21:06 17:01 12:32 WBC (4.8-10.8) x10^3/uL RBC (4.70-6.10) 10^6/uL Hgb (14.0-18.0) g/dL Hct (42.0-52.0) % MCV (80.0-94.0) fL MCH (27.0-31.0) pg MCHC (32.0-36.0) g/dL RDW (12.0-15.0) % Plt Count (130-450) 10^3/uL MPV (7.4-11.4) fL Neut # (Auto) (1.5-6.6) 10^3/uL Lymph # (Auto) (1.5-3.5) 10^3/uL Baker # (Auto) (0.0-1.0) 10^3/uL Eos # (Auto) (0.0-0.7) 10^3/uL Baso # (Auto) (0.0-0.1) 10^3/uL Absolute Nucleated RBC x10^3/uL Nucleated RBC % /100WBC Sodium (135-145) mmol/L Potassium (3.5-5.0) mmol/L Chloride (101-111) mmol/L Carbon Dioxide (21-32) mmol/L Anion Gap (6-13) BUN (6-20) mg/dL Creatinine (0.6-1.2) mg/dL Estimated GFR (MDRD) (>89) Glucose (70-100) mg/dL POC Whole Bld Glucose 147 H 199 H (70 - 100) mg/dL Calcium (8.5-10.3) mg/dL Iron (45-182) ug/dL TIBC (250-450) ug/dL % Saturation (20-50) % Transferrin (180-329) mg/dL Vitamin B12 (180-914) pg/mL Folate (5.90 - >24.8) ng/mL Nasal Screen MRSA (PCR) NEGATIVE (NEGATIVE) 12/08/19 12/08/19 Range/Units 12:30 11:20 WBC (4.8-10.8) x10^3/uL RBC (4.70-6.10) 10^6/uL Hgb (14.0-18.0) g/dL Hct (42.0-52.0) % MCV (80.0-94.0) fL MCH (27.0-31.0) pg MCHC (32.0-36.0) g/dL RDW (12.0-15.0) % Plt Count (130-450) 10^3/uL MPV (7.4-11.4) fL Neut # (Auto) (1.5-6.6) 10^3/uL Lymph # (Auto) (1.5-3.5) 10^3/uL [place] # (Auto) (0.0-1.0) 10^3/uL Eos # (Auto) (0.0-0.7) 10^3/uL Baso # (Auto) (0.0-0.1) 10^3/uL Absolute Nucleated RBC x10^3/uL Nucleated RBC % /100WBC Sodium (135-145) mmol/L Potassium (3.5-5.0) mmol/L Chloride (101-111) mmol/L Carbon Dioxide (21-32) mmol/L Anion Gap (6-13) BUN (6-20) mg/dL Creatinine (0.6-1.2) mg/dL Estimated GFR (MDRD) (>89) Glucose (70-100) mg/dL POC Whole Bld Glucose 289 H 280 H (70 - 100) mg/dL Calcium (8.5-10.3) mg/dL Iron (45-182) ug/dL TIBC (250-450) ug/dL % Saturation (20-50) % Transferrin (180-329) mg/dL Vitamin B12 (180-914) pg/mL Folate (5.90 - >24.8) ng/mL Nasal Screen MRSA (PCR) (NEGATIVE) Assessment/Plan - Problem List (1) Osteomyelitis Impression: MARCE's in diabetic patients are inconsistent due to vessel calcification. His CTA did have positive findings. Peroneal vessel had 70% stenosis and most flow through posterior tibialis which is 50% stenosed. In a perfect situation with compliance his wound may heal so a limited debridement will be done. His wound is growing E-Coli and Enterococcus. His history has changed every day. Yesterday he stated with me that he stepped on a nail 3 months ago but he shared with [facility] previously that he has had problems with his foot for 10 years. The five previous surgeries on his right foot may have had some issues with post-operative compliance. He has very little if any protective sensation on his left foot and limited sensation plantar on his right foot. 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 This was discussed in detail with the patient. He has consented for a limited debridement. Qualifiers: Osteomyelitis type: unspecified type Osteomyelitis location: foot Laterality: left Qualified Code(s): M86.9 - Osteomyelitis, unspecified
[2019-12-09] MEDS: TAMSULOSIN 0.4 MG CAPSULE PO SCH (09:49)
[2019-12-09] MEDS: LOSARTAN 50 MG TABLET PO SCH (09:49)
[2019-12-09] MEDS: amLODIPine 5 MG TABLET PO SCH (09:49)
[2019-12-09] MEDS: ASPIRIN CHEW 81 MG TABLET PO SCH (09:49)
[2019-12-09] MEDS: carvediloL 12.5 MG TABLET PO SCH ×2 (09:49→21:25)
[2019-12-09 12:15] LABS: VANCOMYCIN,TROUGH 37.6 ug/mL (10.0-20.0)
[2019-12-09] MEDS ORDERED: SILVER NITRATE APPLICATOR TOP ONE ×2 (12:24→12:29)
--- NOTE | 2019-12-09 12:24 | PROVIDER PROGRESS NOTE ---
Assessment/Plan - Problem List (1) Osteomyelitis Qualifiers: Osteomyelitis type: unspecified type Osteomyelitis location: foot Laterality: left Qualified Code(s): M86.9 - Osteomyelitis, unspecified Assessment/Plan: Duration of IV antibiotics will be determined by the type of orthopedic surgery done. Without amputation, it is presumed he will need 6 weeks of IV antibiotics. Social work and house servant and you utilization management will help determine type of IV treatment and where. We will request a PICC line placement when we are sure that a prolonged course of IV antibiotics is the plan. (2) E coli infection Assessment/Plan: E. coli is pansensitive. IV cefepime has been started. We will await for any specimen from today's debridement to be sent for culture. Duration of treatment will depend on what Ortho procedure gets done. (3) Enterococcal infection Assessment/Plan: The enterococcus was identified as faecalis and sensitivities are back today. It is Vanco sensitive. If there is a sample of bone sent for culture from today's debridement surgery, will await that result. Duration of treatment will depend on what gets done with Ortho surgery today. (4) KI (acute kidney injury) Assessment/Plan: Creatinine improved from 1.3-1.2 today. He needed to be 12 hours n.p.o. for today's debridement surgery, IV fluids were started. Follow BMP daily. Avoid nephrotoxins. Vanco is being dosed by the pharmacist. (5) Coronary artery disease Assessment/Plan: Patient had OK in June 2019. He had a subsequent coronary angiogram several weeks later. He did receive a stent. He is on aspirin and Plavix. For the past 2 days, we have requested the 08/2019 coronary angiogram results from [facility] and have not received them yet. Will request records again today (but it is a Sat). Continue his beta-norberto, amlodipine, statin, aspirin and Plavix. (6) IDDM (insulin dependent diabetes mellitus) Assessment/Plan: Had a borderline low glucose this morning of 83, he was n.p.o. for 12 hours. D5 NS was started Continue with long-acting insulin, adjusting dose as necessary and continue sliding scale coverage. Because he needed to be n.p.o. for 12 hours for today's surgery, we will not add nutritional insulin yet (7) Gastroparesis diabeticorum Assessment/Plan: At early admission he had nausea, then subsided with prn ant-emetic and he has been stable, eating. (8) Hyperlipidemia Assessment/Plan: He is on his usual home meds for this (9) Hypertension Qualifiers: Hypertension type: essential hypertension Qualified Code(s): I10 - Essential (primary) hypertension Assessment/Plan: He is on his usual home meds for this (10) BPH (benign prostatic hyperplasia) Assessment/Plan: He is on his usual home meds for this (11) GERD (gastroesophageal reflux disease) Assessment/Plan: He is on GERD meds. (12) Anemia Qualifiers: Anemia type: iron deficiency Assessment/Plan: His B12 and folate levels are adequate. He is iron stores are low. We will start oral iron replacement. Follow CBC daily - Current Meds Current Meds: Current Medications Generic Name Dose Route Start Last Admin Trade Name Freq PRN Reason Stop Dose Admin Acetaminophen 650 mg 12/06/19 19:37 12/09/19 00:10 Tylenol PO 650 mg Q6HR PRN Administration Pain 1 to 4 Amlodipine Besylate 5 mg 12/08/19 09:00 12/09/19 09:49 Norvasc PO 5 mg DAILY NATHANIEL Administration Aspirin 81 mg 12/08/19 09:00 12/09/19 09:49 [facility] [place] Aspirin PO 81 mg DAILY NATHANIEL Administration Atorvastatin Calcium 40 mg 12/07/19 21:00 12/08/19 21:08 Lipitor PO 40 mg QPM NATHANIEL Administration Carvedilol 12.5 mg 12/07/19 21:00 12/09/19 09:49 Coreg PO 12.5 mg BID NATHANIEL Administration Clopidogrel Bisulfate 75 mg 12/07/19 13:11 12/08/19 08:00 Plavix PO 75 mg DAILY NATHANIEL Administration Heparin Sodium (Porcine) 5,000 unit 12/06/19 21:00 12/08/19 21:11 SUBQ 5,000 unit BID NATHANIEL Administration Cefepime HCl 2 gm/ Sodium 100 mls @ 200 mls/hr 12/07/19 03:00 12/09/19 11:02 Chloride IV Infused Q8H NATHANIEL Infusion Vancomycin HCl 1.75 gm/ Sodium 500 mls @ 250 mls/hr 12/08/19 00:00 12/09/19 0 2:15 Chloride IV Infused Q12H NATHANIEL Infusion Dextrose/Sodium Chloride 1,000 mls @ 100 mls/hr 12/09/19 07:00 12/09/19 06:59 D5.45ns IV 100 mls/hr .Q10H NATHANIEL Administration Insulin Aspart 3 - 11 unit 12/08/19 12:47 12/09/19 11:46 Novolog SUBQ Not Given 0800,1200,1700,2100 [facility] Protocol Losartan Potassium 50 mg 12/07/19 16:00 12/09/19 09:49 Cozaar PO 50 mg DAILY NATHANIEL Administration Metoclopramide HCl 10 mg 12/07/19 14:00 12/09/19 07:00 Reglan PO 10 mg TID NATHANIEL Administration Multivitamins/Minerals 1 tab 12/07/19 17:00 12/09/19 09:49 Theragran M PO 1 tab DAILYWM NATHANIEL Administration Oxycodone HCl 5 mg 12/06/19 19:37 12/09/19 00:10 Roxicodone PO 5 mg Q4HR PRN Administration Pain 5 to 7 Sodium Chloride 10 ml 12/06/19 19:37 12/08/19 14:26 Normal Saline Flush 0.9% IVP 10 ml PRN PRN Administration NEEDED PER PROVIDER ORDERS Sodium Chloride 10 ml 12/07/19 01:00 12/09/19 09:50 Normal Saline Flush 0.9% IVP Not Given 0100,0900,1700 NATHANIEL Tamsulosin HCl 0.4 mg 12/08/19 09:00 12/09/19 09:49 Flomax PO 0.4 mg DAILY NATHANIEL Administration - Lab Result Fish Bone Diagrams: 12/09/19 05:00 12/09/19 05:00 - Additional Planning My Orders: My Active Orders 12/08/19 12:47 Insulin Aspart [NovoLOG] 3 - 11 unit SUBQ 0800,1200,1700,2100 12/08/19 20:30 DIET [NPO except Meds] [DIET] Subjective - Subjective Patient Reports: Resting Comfortably, No Complaints Objective Vital Signs: Vital Signs - 24 hr 12/08/19 12/08/19 12/08/19 15:59 21:35 23:40 Temperature 37.0 C 37.2 C 36.9 C Heart Rate [ 80 81 79 Brachial] Respiratory 18 19 16 Rate Blood Pressure 122/62 150/78 H 128/71 [Right Brachial artery] O2 Saturation 96 93 98 12/09/19 12/09/19 04:50 07:30 Temperature 36.4 C L 36.4 C L Heart Rate [ 75 79 Brachial] Respiratory 16 16 Rate Blood Pressure 135/76 H 152/87 H [Right Brachial artery] O2 Saturation 99 97 Oxygen O2 Source Room air I&O (Last 24 Hrs): Intake and Output Totals x24h 12/07/19 12/08/19 12/09/19 23:59 23:59 23:59 Intake Total 3768 2800 1700 Output Total 1115 3300 1300 Balance 2653 -500 400 General: Alert, No acute distress HEENT: Mucous membr. moist/pink Neck: Supple, No JVD Neuro: Alert, Non Focal Cardiovascular: Regular rate Respiratory: No respiratory distress Abdomen: Soft Extremities: No edema, Other (Several toes on the right foot are amputated, the left foot is bandaged) - Results Results: Laboratory Results WBC 3.9 x10^3/uL (4.8-10.8) L 12/09/19 05:00 RBC 3.39 10^6/uL (4.70-6.10) L 12/09/19 05:00 Hgb 10.1 g/dL (14.0-18.0) L 12/09/19 05:00 Hct 31.1 % (42.0-52.0) L 12/09/19 05:00 MCV 91.7 fL (80.0-94.0) 12/09/19 05:00 MCH 29.8 pg (27.0-31.0) 12/09/19 05:00 MCHC 32.5 g/dL (32.0-36.0) 12/09/19 05:00 RDW 12.2 % (12.0-15.0) 12/09/19 05:00 Plt Count 353 10^3/uL (130-450) 12/09/19 05:00 MPV 9.0 fL (7.4-11.4) 12/09/19 05:00 Neut # (Auto) 2.3 10^3/uL (1.5-6.6) 12/09/19 05:00 Lymph # (Auto) 0.8 10^3/uL (1.5-3.5) L 12/09/19 05:00 [place] # (Auto) 0.6 10^3/uL (0.0-1.0) 12/09/19 05:00 Eos # (Auto) 0.2 10^3/uL (0.0-0.7) 12/09/19 05:00 Baso # (Auto) 0.0 10^3/uL (0.0-0.1) 12/09/19 05:00 Absolute Nucleated RBC 0.00 x10^3/uL 12/09/19 05:00 Nucleated RBC % 0.0 /100WBC 12/09/19 05:00 ESR 66 mm/Hr (0-20) H 12/07/19 08:09 PT 14.7 secs (9.9-12.6) H 12/07/19 08:09 INR 1.3 (0.8-1.2) H 12/07/19 08:09 Sodium 139 mmol/L (135-145) 12/09/19 05:00 Potassium 4.0 mmol/L (3.5-5.0) 12/09/19 05:00 Chloride 106 mmol/L (101-111) 12/09/19 05:00 Carbon Dioxide 26 mmol/L (21-32) 12/09/19 05:00 Anion Gap 7.0 (6-13) 12/09/19 05:00 BUN 21 mg/dL (6-20) H 12/09/19 05:00 Creatinine 1.2 mg/dL (0.6-1.2) 12/09/19 05:00 Estimated GFR (MDRD) 61 (>89) L 12/09/19 05:00 Glucose 99 mg/dL (70-100) 12/09/19 05:00 POC Whole Bld Glucose 127 mg/dL (70 - 100) H 12/09/19 11:07 Estimat Average Glucose 237 mg/dL (70-100) H 12/07/19 04:45 Hemoglobin A1c % 9.9 % (4.27-6.07) H 12/07/19 04:45 Calcium 8.7 mg/dL (8.5-10.3) 12/09/19 05:00 Iron 44 ug/dL (45-182) L 12/09/19 05:00 TIBC 188 ug/dL (250-450) L 12/09/19 05:00 % Saturation 23 % (20-50) 12/09/19 05:00 Transferrin 134 mg/dL (180-329) L 12/09/19 05:00 Total Bilirubin 0.8 mg/dL (0.2-1.0) 12/07/19 04:45 Direct Bilirubin 0.2 mg/dL (0.1-0.5) 12/07/19 04:45 AST 11 IU/L (10-42) 12/07/19 04:45 ALT 13 IU/L (10-60) 12/07/19 04:45 Alkaline Phosphatase 65 IU/L (42-121) 12/07/19 04:45 C-Reactive Protein 8.2 mg/dL (0-1.0) H 12/06/19 15:35 C-React Prot High Sens 71.9 mg/L 12/07/19 04:45 Total Protein 6.2 g/dL (6.7-8.2) L 12/07/19 04:45 Albumin 2.9 g/dL (3.2-5.5) L 12/07/19 04:45 Globulin 3.3 g/dL (2.1-4.2) 12/07/19 04:45 Vitamin B12 605 pg/mL (180-914) 12/09/19 05:00 Folate 20.07 ng/mL (5.90 - >24.8) 12/09/19 05:00 Nasal Screen MRSA (PCR) NEGATIVE (NEGATIVE) 12/08/19 12:32 Dose 1.75 12/09/19 11:44 Last Dose Date T 12/09/19 11:44 Last Dose Time 0215 12/09/19 11:44 Vancomycin Trough 37.6 ug/mL (10.0-20.0) H* 12/09/19 11:44 - Procedures Procedures: Procedures INSERTION OF INFUSION DEV INTO SUP VENA CAVA, PERC APPROACH (07/21/19) INSERTION OF INFUSION DEVICE INTO R ATRIUM, PERC APPROACH (06/09/19) ULTRASONOGRAPHY OF SUPERIOR VENA CAVA, GUIDANCE (06/09/19)
--- NOTE | 2019-12-09 12:41 | OPERATIVE REPORT ---
Operative Report - General Admit Date: 12/06/19 Planned Procedure: Debridement left foot diabetic ulcer Pre-Op Diagnosis: left foot chronic diabetic ulcer Procedure Performed: Debridement of left foot diabetic ulcer Post Op Diagnosis: same - Procedure Note Primary Surgeon: Erick Nelson Secondary Surgeon: Brandon HOLLEY Anesthesia Technique: Moderate sedation Pathology: Tissue sent for culture Estimated Blood Loss (mL): 10 Indications: This patient has had a chronic left foot plantar diabetic ulcer with E. coli and enterococcus growing from the wound. Preoperatively an MRI scan suggested some involvement of the bone. He has had a previous fourth and fifth metatarsal resection on his opposite foot. Preoperative ABIs and CTA of the lower extremity revealed that he has enough healing potential for a superficial debridement and not immediate amputation Findings: The superficial wound was debrided and unroofed and there was granulation tissue underneath. There was very little pus. The granulation tissue and chronic necrotic debris extended down to the metatarsal head which was soft. The proximal metatarsal had good bone quality. There appeared to be chronic dirty wound extending up to the dorsum of the DIP joint and plantarly. - Other Other Information/Narrative: The patient was taken to the operating room and given a sedation with propofol. He required very little other pain medication due to his fairly dense sensory deficit in his left foot. His left foot was scrubbed with chlorhexidine solution. Some of the chronic hypertrophic skin was removed. His foot was generally cleaned. We then prepped and draped him sterilely. A timeout was performed. He was already on preoperative antibiotics. We then unroofed the superficial skin and found granulation tissue beneath. This was bleeding at the edges. Inside the ulcer which measured 2 x 3 cm both plantarly and dorsally there was necrotic debris which was removed with the rongeurs. This included necrotic fat. It appeared that the extensor and flexor tendons were intact. The capsule of the M CP joint was compromised. This was thoroughly washed out and irrigated and subsequently a rongeurs was used to take any of the necrotic debris until we had a thorough bleeding base. After this was done we noted that the skin appeared to be in much better shape and the odor had decreased si gnificantly. We then did a superficial debridement of any skin. We then used 1 roll of packing gauze 1 inch in diameter and packed it into the wound both dorsally and plantarly. He did not appear to feel the packing being placed. We also used some silver nitrate on the bleeding edges of his skin and subcutaneous tissue. We then placed a 4 x 4 and an ABD and wrapped gauze. The only packing that was done is 1 long roll. No sutures were used to close the wound. The tissue was sent to pathology. He was taken recovery room in stable condition.
--- NOTE | 2019-12-09 12:54 | PROVIDER PROGRESS NOTE ---
Subjective - Prog Note Date Prog Note Date: 12/09/19 Prog Note Time: 12:51 Objective - Vital Signs/Intake & Output Vital Signs: Vital Signs x48h Temp Pulse Resp BP Pulse Ox 12/09/19 07:30 36.4 C L 79 16 152/87 H 97 Intake & Output: Intake & Output 12/06/19 12/07/19 12/08/19 12/09/19 23:59 23:59 23:59 23:59 Intake Total 600 3768 2800 1700 Output Total 180 1115 3300 1300 Balance 420 2653 -500 400 - Lab Results Fish Bones: 12/09/19 05:00 12/09/19 05:00 Other Labs: Lab Results x24hrs 12/09/19 12/09/19 12/09/19 Range/Units 11:44 11:07 07:23 WBC (4.8-10.8) x10^3/uL RBC (4.70-6.10) 10^6/uL Hgb (14.0-18.0) g/dL Hct (42.0-52.0) % MCV (80.0-94.0) fL MCH (27.0-31.0) pg MCHC (32.0-36.0) g/dL RDW (12.0-15.0) % Plt Count (130-450) 10^3/uL MPV (7.4-11.4) fL Neut # (Auto) (1.5-6.6) 10^3/uL Lymph # (Auto) (1.5-3.5) 10^3/uL [place] # (Auto) (0.0-1.0) 10^3/uL Eos # (Auto) (0.0-0.7) 10^3/uL Baso # (Auto) (0.0-0.1) 10^3/uL Absolute Nucleated RBC x10^3/uL Nucleated RBC % /100WBC Sodium (135-145) mmol/L Potassium (3.5-5.0) mmol/L Chloride (101-111) mmol/L Carbon Dioxide (21-32) mmol/L Anion Gap (6-13) BUN (6-20) mg/dL Creatinine (0.6-1.2) mg/dL Estimated GFR (MDRD) (>89) Glucose (70-100) mg/dL POC Whole Bld Glucose 127 H 94 (70 - 100) mg/dL Calcium (8.5-10.3) mg/dL Iron (45-182) ug/dL TIBC (250-450) ug/dL % Saturation (20-50) % Transferrin (180-329) mg/dL Vitamin B12 (180-914) pg/mL Folate (5.90 - >24.8) ng/mL Nasal Screen MRSA (PCR) (NEGATIVE) Dose 1.75 Last Dose Date T Last Dose Time 0215 Vancomycin Trough 37.6 H* (10.0-20.0) ug/mL 12/09/19 12/09/19 12/09/19 Range/Units 06:31 05:24 05:00 WBC (4.8-10.8) x10^3/uL RBC (4.70-6.10) 10^6/uL Hgb (14.0-18.0) g/dL Hct (42.0-52.0) % MCV (80.0-94.0) fL MCH (27.0-31.0) pg MCHC (32.0-36.0) g/dL RDW (12.0-15.0) % Plt Count (130-450) 10^3/uL MPV (7.4-11.4) fL Neut # (Auto) (1.5-6.6) 10^3/uL Lymph # (Auto) (1.5-3.5) 10^3/uL [place] # (Auto) (0.0-1.0) 10^3/uL Eos # (Auto) (0.0-0.7) 10^3/uL Baso # (Auto) (0.0-0.1) 10^3/uL Absolute Nucleated RBC x10^3/uL Nucleated RBC % /100WBC Sodium (135-145) mmol/L Potassium (3.5-5.0) mmol/L Chloride (101-111) mmol/L Carbon Dioxide (21-32) mmol/L Anion Gap (6-13) BUN (6-20) mg/dL Creatinine (0.6-1.2) mg/dL Estimated GFR (MDRD) (>89) Glucose (70-100) mg/dL POC Whole Bld Glucose 83 87 (70 - 100) mg/dL Calcium (8.5-10.3) mg/dL Iron (45-182) ug/dL TIBC (250-450) ug/dL % Saturation (20-50) % Transferrin (180-329) mg/dL Vitamin B12 605 (180-914) pg/mL Folate 20.07 (5.90 - >24.8) ng/mL Nasal Screen MRSA (PCR) (NEGATIVE) Dose Last Dose Date Last Dose Time Vancomycin Trough (10.0-20.0) ug/mL 12/09/19 12/09/19 12/08/19 Range/Units 05:00 05:00 21:06 WBC 3.9 L (4.8-10.8) x10^3/uL RBC 3.39 L (4.70-6.10) 10^6/uL Hgb 10.1 L (14.0-18.0) g/dL Hct 31.1 L (42.0-52.0) % MCV 91.7 (80.0-94.0) fL MCH 29.8 (27.0-31.0) pg MCHC 32.5 (32.0-36.0) g/dL RDW 12.2 (12.0-15.0) % Plt Count 353 (130-450) 10^3/uL MPV 9.0 (7.4-11.4) fL Neut # (Auto) 2.3 (1.5-6.6) 10^3/uL Lymph # (Auto) 0.8 L (1.5-3.5) 10^3/uL [place] # (Auto) 0.6 (0.0-1.0) 10^3/uL Eos # (Auto) 0.2 (0.0-0.7) 10^3/uL Baso # (Auto) 0.0 (0.0-0.1) 10^3/uL Absolute Nucleated RBC 0.00 x10^3/uL Nucleated RBC % 0.0 /100WBC Sodium 139 (135-145) mmol/L Potassium 4.0 (3.5-5.0) mmol/L Chloride 106 (101-111) mmol/L Carbon Dioxide 26 (21-32) mmol/L Anion Gap 7.0 (6-13) BUN 21 H (6-20) mg/dL Creatinine 1.2 (0.6-1.2) mg/dL Estimated GFR (MDRD) 61 L (>89) Glucose 99 (70-100) mg/dL POC Whole Bld Glucose 147 H (70 - 100) mg/dL Calcium 8.7 (8.5-10.3) mg/dL Iron 44 L (45-182) ug/dL TIBC 188 L (250-450) ug/dL % Saturation 23 (20-50) % Transferrin 134 L (180-329) mg/dL Vitamin B12 (180-914) pg/mL Folate (5.90 - >24.8) ng/mL Nasal Screen MRSA (PCR) (NEGATIVE) Dose Last Dose Date Last Dose Time Vancomycin Trough (10.0-20.0) ug/mL 12/08/19 12/08/19 Range/Units 17:01 12:32 WBC (4.8-10.8) x10^3/uL RBC (4.70-6.10) 10^6/uL Hgb (14.0-18.0) g/dL Hct (42.0-52.0) % MCV (80.0-94.0) fL MCH (27.0-31.0) pg MCHC (32.0-36.0) g/dL RDW (12.0-15.0) % Plt Count (130-450) 10^3/uL MPV (7.4-11.4) fL Neut # (Auto) (1.5-6.6) 10^3/uL Lymph # (Auto) (1.5-3.5) 10^3/uL [place] # (Auto) (0.0-1.0) 10^3/uL Eos # (Auto) (0.0-0.7) 10^3/uL Baso # (Auto) (0.0-0.1) 10^3/uL Absolute Nucleated RBC x10^3/uL Nucleated RBC % /100WBC Sodium (135-145) mmol/L Potassium (3.5-5.0) mmol/L Chloride (101-111) mmol/L Carbon Dioxide (21-32) mmol/L Anion Gap (6-13) BUN (6-20) mg/dL Creatinine (0.6-1.2) mg/dL Estimated GFR (MDRD) (>89) Glucose (70-100) mg/dL POC Whole Bld Glucose 199 H (70 - 100) mg/dL Calcium (8.5-10.3) mg/dL Iron (45-182) ug/dL TIBC (250-450) ug/dL % Saturation (20-50) % Transferrin (180-329) mg/dL Vitamin B12 (180-914) pg/mL Folate (5.90 - >24.8) ng/mL Nasal Screen MRSA (PCR) NEGATIVE (NEGATIVE) Dose Last Dose Date Last Dose Time Vancomycin Trough (10.0-20.0) ug/mL Assessment/Plan - Problem List (1) Osteomyelitis Qualifiers: Osteomyelitis type: unspecified type Osteomyelitis location: foot Laterality: left Qualified Code(s): M86.9 - Osteomyelitis, unspecified
[2019-12-09] MEDS ORDERED: LACTATED RINGERS 1,000 ML IV ONE (13:00)
--- NOTE | 2019-12-09 13:31 | PHARMACY PROGRESS NOTE ---
- Therapy Status Vancomycin regimen day #: 3 Therapy status: Trough supratherapeutic Basis for treatment: Empirical Treatment indication: osteomyelitis Trough goal: 15-20 Concurrent antibiotics: Cefepime - KI Risk Risk level for Acute Kidney Injury: High Acute Kidney Injury risk factors: Wt >100kg or BMI >40, Goal trough >15, Chronic baseline hypertension, Diabetes - Monitoring and Recommendation Clinical response to treatment: I&O Previous 24 hours 12/07/19 12/08/19 12/09/19 23:59 23:59 23:59 Intake Total 3768 2800 1700 Output Total 1115 3300 1300 Balance 2653 -500 400 Lab Results 12/09/19 12/08/19 12/07/19 05:00 05:08 08:09 ESR 66 H BUN 21 H 23 H Creatinine 1.2 1.3 H Estimated GFR (MDRD) 61 L 56 L 12/07/19 12/06/19 12/06/19 04:45 15:35 15:35 ESR 74 H BUN 15 16 Creatinine 1.1 1.2 Estimated GFR (MDRD) 67 L 61 L Vancomycin Monitoring 12/09/19 11:44 Vancomycin Trough 37.6 H* Monitoring plan: Daily serum creatinine, Draw trough early, Suggest ongoing fluid replacement Areas for additional monitoring: IV to PO when appropriate, Therapy de- escalation based on culture results, Acute Kidney Injury Pharmacy recommendation: Hold dose (Getting random level prior to reinitiating. Plan to reinitiate at a 2 Gram Q24 hour dose)
[2019-12-09] MEDS: HEPARIN 5,000 UNIT/ML VIAL SUBQ SCH ×2 (13:51→21:29)
[2019-12-09] MEDS: CLOPIDOGREL 75 MG TABLET PO SCH (13:51)
--- NOTE | 2019-12-09 14:31 | ANESTHESIA POST OP EVALUATION ---
Anesthesia Post Eval - Post Anesthesia Eval Vitals: Last Vital Signs Temp 36.5 C 12/09/19 14:01 Pulse 72 12/09/19 14:01 Resp 16 12/09/19 14:01 BP 164/94 H 12/09/19 14:01 Pulse Ox 98 12/09/19 14:01 CV Function Including HR & BP: positive: Stable Pain Control: positive: Satisfactory Nausea & Vomiting: positive: Negative Mental Status: positive: Baseline Respiratory Status: Airway Patent Hydration Status: Satisfactory Anesthesia Complications: positive: None
[2019-12-09] MEDS: ATORVASTATIN 40 MG TABLET PO SCH (21:25)
[2019-12-10] MEDS: oxyCODONE 5 MG TABLET PO PRN (00:15)
[2019-12-10] MEDS: SODIUM CHLORIDE FLUSH 0.9% 10 ML SYRINGE IVP SCH ×3 (01:24→17:16)
[2019-12-10] MEDS: CEFEPIME 2 GM in SODIUM CHLORIDE 0.9% MINIBAG 100 ML IV SCH ×3 (03:15→19:08)
[2019-12-10] MEDS: DEXTROSE 5%-0.45% NACL 1,000 ML IV SCH (05:35)
[2019-12-10 05:54] LABS: EOSINOPHILS # (AUTO) 0.2 10^3/uL (0.0-0.7); EOSINOPHILS % (AUTO) 4.7 %; HGB - HEMOGLOBIN 10.5 g/dL (14.0-18.0); LYMPHOCYTES # (AUTO) 0.9 10^3/uL (1.5-3.5); LYMPHOCYTES % (AUTO) 22.7 %; MEAN CORPUSCULAR HEMOGLOBIN 30.7 pg (27.0-31.0); MEAN CORPUSCULAR VOLUME 90.4 fL (80.0-94.0); MEAN PLATELET VOLUME 9.2 fL (7.4-11.4); MONOCYTES # (AUTO) 0.5 10^3/uL (0.0-1.0); MONOCYTES % (AUTO) 12.5 %; NEUTROPHILS # (AUTO) 2.3 10^3/uL (1.5-6.6); NEUTROPHILS % (AUTO) 58.8 %; PLT - PLATELET COUNT 340 10^3/uL (130-450); RED BLOOD COUNT 3.42 10^6/uL (4.70-6.10); RED CELL DISTRIBUTION WIDTH 12.1 % (12.0-15.0); WHITE BLOOD COUNT 3.8 x10^3/uL (4.8-10.8)
[2019-12-10 06:03] LABS: CALCIUM 8.5 mg/dL (8.5-10.3); CREATININE 1.1 mg/dL (0.6-1.2)
[2019-12-10 06:04] LABS: VANCOMYCIN,RANDOM 15.1 ug/mL
--- NOTE | 2019-12-10 06:45 | PROVIDER PROGRESS NOTE ---
Subjective - Prog Note Date Prog Note Date: 12/10/19 Prog Note Time: 06:30 - Subjective Pt reports feeling: Improved Objective - Vital Signs/Intake & Output Vital Signs: Vital Signs x48h Temp Pulse Resp BP Pulse Ox 12/10/19 03:13 36.2 C L 83 16 143/84 H 94 12/10/19 00:10 37.0 C 81 16 149/77 H 96 Intake & Output: Intake & Output 12/07/19 12/08/19 12/09/19 12/10/19 23:59 23:59 23:59 23:59 Intake Total 3768 2800 3440 986.667 Output Total 1115 3300 3275 700 Balance 2653 -500 165 286.667 - Lab Results Fish Bones: 12/10/19 05:35 12/10/19 05:35 Other Labs: Lab Results x24hrs 12/10/19 12/10/19 12/10/19 Range/Units 05:35 05:35 05:35 WBC 3.8 L (4.8-10.8) x10^3/uL RBC 3.42 L (4.70-6.10) 10^6/uL Hgb 10.5 L (14.0-18.0) g/dL Hct 30.9 L (42.0-52.0) % MCV 90.4 (80.0-94.0) fL MCH 30.7 (27.0-31.0) pg MCHC 34.0 (32.0-36.0) g/dL RDW 12.1 (12.0-15.0) % Plt Count 340 (130-450) 10^3/uL MPV 9.2 (7.4-11.4) fL Neut # (Auto) 2.3 (1.5-6.6) 10^3/uL Lymph # (Auto) 0.9 L (1.5-3.5) 10^3/uL [place] # (Auto) 0.5 (0.0-1.0) 10^3/uL Eos # (Auto) 0.2 (0.0-0.7) 10^3/uL Baso # (Auto) 0.0 (0.0-0.1) 10^3/uL Absolute Nucleated RBC 0.00 x10^3/uL Nucleated RBC % 0.0 /100WBC Sodium 134 L (135-145) mmol/L Potassium 4.3 (3.5-5.0) mmol/L Chloride 101 (101-111) mmol/L Carbon Dioxide 24 (21-32) mmol/L Anion Gap 9.0 (6-13) BUN 19 (6-20) mg/dL Creatinine 1.1 (0.6-1.2) mg/dL Estimated GFR (MDRD) 67 L (>89) Glucose 367 H (70-100) mg/dL POC Whole Bld Glucose (70 - 100) mg/dL Calcium 8.5 (8.5-10.3) mg/dL Dose Last Dose Date 12/09/19 Last Dose Time 0014 Vancomycin Trough (10.0-20.0) ug/mL Random Vancomycin 15.1 ug/mL 12/09/19 12/09/19 12/09/19 Range/Units 20:46 16:26 11:44 WBC (4.8-10.8) x10^3/uL RBC (4.70-6.10) 10^6/uL Hgb (14.0-18.0) g/dL Hct (42.0-52.0) % MCV (80.0-94.0) fL MCH (27.0-31.0) pg MCHC (32.0-36.0) g/dL RDW (12.0-15.0) % Plt Count (130-450) 10^3/uL MPV (7.4-11.4) fL Neut # (Auto) (1.5-6.6) 10^3/uL Lymph # (Auto) (1.5-3.5) 10^3/uL [place] # (Auto) (0.0-1.0) 10^3/uL Eos # (Auto) (0.0-0.7) 10^3/uL Baso # (Auto) (0.0-0.1) 10^3/uL Absolute Nucleated RBC x10^3/uL Nucleated RBC % /100WBC Sodium (135-145) mmol/L Potassium (3.5-5.0) mmol/L Chloride (101-111) mmol/L Carbon Dioxide (21-32) mmol/L Anion Gap (6-13) BUN (6-20) mg/dL Creatinine (0.6-1.2) mg/dL Estimated GFR (MDRD) (>89) Glucose (70-100) mg/dL POC Whole Bld Glucose 315 H 170 H (70 - 100) mg/dL Calcium (8.5-10.3) mg/dL Dose 1.75 Last Dose Date T Last Dose Time 0215 Vancomycin Trough 37.6 H* (10.0-20.0) ug/mL Random Vancomycin ug/mL 12/09/19 12/09/19 Range/Units 11:07 07:23 WBC (4.8-10.8) x10^3/uL RBC (4.70-6.10) 10^6/uL Hgb (14.0-18.0) g/dL Hct (42.0-52.0) % MCV (80.0-94.0) fL MCH (27.0-31.0) pg MCHC (32.0-36.0) g/dL RDW (12.0-15.0) % Plt Count (130-450) 10^3/uL MPV (7.4-11.4) fL Neut # (Auto) (1.5-6.6) 10^3/uL Lymph # (Auto) (1.5-3.5) 10^3/uL Parmer # (Auto) (0.0-1.0) 10^3/uL Eos # (Auto) (0.0-0.7) 10^3/uL Baso # (Auto) (0.0-0.1) 10^3/uL Absolute Nucleated RBC x10^3/uL Nucleated RBC % /100WBC Sodium (135-145) mmol/L Potassium (3.5-5.0) mmol/L Chloride (101-111) mmol/L Carbon Dioxide (21-32) mmol/L Anion Gap (6-13) BUN (6-20) mg/dL Creatinine (0.6-1.2) mg/dL Estimated GFR (MDRD) (>89) Glucose (70-100) mg/dL POC Whole Bld Glucose 127 H 94 (70 - 100) mg/dL Calcium (8.5-10.3) mg/dL Dose Last Dose Date Last Dose Time Vancomycin Trough (10.0-20.0) ug/mL Random Vancomycin ug/mL Assessment/Plan - Problem List (1) Osteomyelitis Impression: He will require 6 weeks of Iv/po antibiotics depending on susceptibility of bacteria. Daily dressing changes. Vianney boot NWB. Compliance. Better management of IDDM with HgbA1C in the 6.0 range to heal. He has the vascularity to heal but the biomechanics of his asensate foot and previous compliance history are not in his favor. Qualifiers: Osteomyelitis type: unspecified type Osteomyelitis location: foot Laterality: left Qualified Code(s): M86.9 - Osteomyelitis, unspecified
--- NOTE | 2019-12-10 07:25 | PHARMACY PROGRESS NOTE ---
- Therapy Status Vancomycin regimen day #: 4 Therapy status: Awaiting steady state Basis for treatment: Empirical Treatment indication: Osteomyelitis Trough goal: 15-20 Concurrent antibiotics: Cefepime - KI Risk Risk level for Acute Kidney Injury: High Acute Kidney Injury risk factors: Wt >100kg or BMI >40, Goal trough >15, Chronic baseline hypertension, Diabetes - Monitoring and Recommendation Clinical response to treatment: I&O Previous 24 hours 12/08/19 12/09/19 12/10/19 23:59 23:59 23:59 Intake Total 2800 3440 986.667 Output Total 3300 3275 700 Balance -500 165 286.667 Lab Results 12/10/19 12/09/19 12/08/19 05:35 05:00 05:08 ESR BUN 19 21 H 23 H Creatinine 1.1 1.2 1.3 H Estimated GFR (MDRD) 67 L 61 L 56 L 12/07/19 12/07/19 12/06/19 08:09 04:45 15:35 ESR 66 H BUN 15 16 Creatinine 1.1 1.2 Estimated GFR (MDRD) 67 L 61 L 12/06/19 15:35 ESR 74 H BUN Creatinine Estimated GFR (MDRD) Vancomycin Monitoring 12/10/19 12/09/19 05:35 11:44 Vancomycin Trough 37.6 H* Random Vancomycin 15.1 Monitoring plan: Daily serum creatinine, Suggest ongoing fluid replacement Next trough due prior to maintenance dose #: 4 Next trough due (date/time): 12/13/2019 @ 0930 Areas for additional monitoring: IV to PO when appropriate, Therapy de- escalation based on culture results, Acute Kidney Injury Pharmacy recommendation: Continue current regime (Resuming therapy after holding for 24 hours.)
[2019-12-10] MEDS: INSULIN ASPART 300 UNIT/3 ML PEN SUBQ SCH ×4 (07:55→21:15)
[2019-12-10] MEDS: INSULIN GLARGINE 300 UNIT/3 ML PEN SUBQ SCH ×2 (07:56→21:16)
[2019-12-10] MEDS: ASPIRIN CHEW 81 MG TABLET PO SCH (09:12)
[2019-12-10] MEDS: LOSARTAN 50 MG TABLET PO SCH (09:12)
[2019-12-10] MEDS: FERROUS SULFATE 300 MG/5 ML UDC PO SCH (09:12)
[2019-12-10] MEDS: amLODIPine 5 MG TABLET PO SCH (09:12)
[2019-12-10] MEDS: TAMSULOSIN 0.4 MG CAPSULE PO SCH (09:13)
[2019-12-10] MEDS: carvediloL 12.5 MG TABLET PO SCH ×2 (09:13→21:14)
[2019-12-10] MEDS: CLOPIDOGREL 75 MG TABLET PO SCH (09:13)
[2019-12-10] MEDS: MULTIVITAMIN W/MINERALS TABLET PO SCH (09:13)
[2019-12-10] MEDS: VANCOMYCIN INJ 2 GM in SODIUM CHLORIDE 0.9% 500 ML IV SCH (09:21)
[2019-12-10] MEDS: HEPARIN 5,000 UNIT/ML VIAL SUBQ SCH ×2 (09:25→21:15)
--- NOTE | 2019-12-10 12:22 | PROVIDER PROGRESS NOTE ---
Subjective - General Admit Date: 12/06/19 Procedure Date: 12/09/19 Post Op Days: 1 Procedure Performed: Irrigation and debridement of diabetic wound left forefoot, fifth metatarsa - Review of Systems Wound/Incisions: negative: Other (Dressing has mild serosanguineous drainage left foot) Objective - Patient Data Vital Signs: Vital Signs x48h Temp Pulse Resp BP Pulse Ox 12/10/19 09:10 79 169/85 H 12/10/19 07:35 36.6 C 78 18 169/89 H 96 Intake & Output: Intake and Output Totals x24h 12/08/19 12/09/19 12/10/19 23:59 23:59 23:59 Intake Total 2800 3440 1919.667 Output Total 3300 3275 2400 Balance -500 165 -480.333 - Lab Results Lab Results: 12/10/19 05:35 12/10/19 05:35 Other Lab Results: Lab Results x24hrs 12/10/19 12/10/19 12/10/19 Range/Units 11:08 07:27 05:35 WBC (4.8-10.8) x10^3/uL RBC (4.70-6.10) 10^6/uL Hgb (14.0-18.0) g/dL Hct (42.0-52.0) % MCV (80.0-94.0) fL MCH (27.0-31.0) pg MCHC (32.0-36.0) g/dL RDW (12.0-15.0) % Plt Count (130-450) 10^3/uL MPV (7.4-11.4) fL Neut # (Auto) (1.5-6.6) 10^3/uL Lymph # (Auto) (1.5-3.5) 10^3/uL [place] # (Auto) (0.0-1.0) 10^3/uL Eos # (Auto) (0.0-0.7) 10^3/uL Baso # (Auto) (0.0-0.1) 10^3/uL Absolute Nucleated RBC x10^3/uL Nucleated RBC % /100WBC Sodium (135-145) mmol/L Potassium (3.5-5.0) mmol/L Chloride (101-111) mmol/L Carbon Dioxide (21-32) mmol/L Anion Gap (6-13) BUN (6-20) mg/dL Creatinine (0.6-1.2) mg/dL Estimated GFR (MDRD) (>89) Glucose (70-100) mg/dL POC Whole Bld Glucose 288 H 347 H (70 - 100) mg/dL Calcium (8.5-10.3) mg/dL Last Dose Date 12/09/19 Last Dose Time 0014 Random Vancomycin 15.1 ug/mL 12/10/19 12/10/19 12/09/19 Range/Units 05:35 05:35 20:46 WBC 3.8 L (4.8-10.8) x10^3/uL RBC 3.42 L (4.70-6.10) 10^6/uL Hgb 10.5 L (14.0-18.0) g/dL Hct 30.9 L (42.0-52.0) % MCV 90.4 (80.0-94.0) fL MCH 30.7 (27.0-31.0) pg MCHC 34.0 (32.0-36.0) g/dL RDW 12.1 (12.0-15.0) % Plt Count 340 (130-450) 10^3/uL MPV 9.2 (7.4-11.4) fL Neut # (Auto) 2.3 (1.5-6.6) 10^3/uL Lymph # (Auto) 0.9 L (1.5-3.5) 10^3/uL [place] # (Auto) 0.5 (0.0-1.0) 10^3/uL Eos # (Auto) 0.2 (0.0-0.7) 10^3/uL Baso # (Auto) 0.0 (0.0-0.1) 10^3/uL Absolute Nucleated RBC 0.00 x10^3/uL Nucleated RBC % 0.0 /100WBC Sodium 134 L (135-145) mmol/L Potassium 4.3 (3.5-5.0) mmol/L Chloride 101 (101-111) mmol/L Carbon Dioxide 24 (21-32) mmol/L Anion Gap 9.0 (6-13) BUN 19 (6-20) mg/dL Creatinine 1.1 (0.6-1.2) mg/dL Estimated GFR (MDRD) 67 L (>89) Glucose 367 H (70-100) mg/dL POC Whole Bld Glucose 315 H (70 - 100) mg/dL Calcium 8.5 (8.5-10.3) mg/dL Last Dose Date Last Dose Time Random Vancomycin ug/mL 12/09/19 Range/Units 16:26 WBC (4.8-10.8) x10^3/uL RBC (4.70-6.10) 10^6/uL Hgb (14.0-18.0) g/dL Hct (42.0-52.0) % MCV (80.0-94.0) fL MCH (27.0-31.0) pg MCHC (32.0-36.0) g/dL RDW (12.0-15.0) % Plt Count (130-450) 10^3/uL MPV (7.4-11.4) fL Neut # (Auto) (1.5-6.6) 10^3/uL Lymph # (Auto) (1.5-3.5) 10^3/uL [place] # (Auto) (0.0-1.0) 10^3/uL Eos # (Auto) (0.0-0.7) 10^3/uL Baso # (Auto) (0.0-0.1) 10^3/uL Absolute Nucleated RBC x10^3/uL Nucleated RBC % /100WBC Sodium (135-145) mmol/L Potassium (3.5-5.0) mmol/L Chloride (101-111) mmol/L Carbon Dioxide (21-32) mmol/L Anion Gap (6-13) BUN (6-20) mg/dL Creatinine (0.6-1.2) mg/dL Estimated GFR (MDRD) (>89) Glucose (70-100) mg/dL POC Whole Bld Glucose 170 H (70 - 100) mg/dL Calcium (8.5-10.3) mg/dL Last Dose Date Last Dose Time Random Vancomycin ug/mL - Imaging Results Radiology Imaging: positive: See rad report - Current Medications Current Medications: Current Medications Generic Name Dose Route Start Last Admin Trade Name Freq PRN Reason Stop Dose Admin Acetaminophen 650 mg 12/06/19 19:37 12/09/19 00:10 Tylenol PO 650 mg Q6HR PRN Administration Pain 1 to 4 Amlodipine Besylate 5 mg 12/08/19 09:00 12/10/19 09:12 Norvasc PO 5 mg DAILY NATHANIEL Administration Aspirin 81 mg 12/08/19 09:00 12/10/19 09:12 [facility] Santos Aspirin PO 81 mg DAILY NATHANIEL Administration Atorvastatin Calcium 40 mg 12/07/19 21:00 12/09/19 21:25 Lipitor PO 40 mg QPM NATHANIEL Administration Carvedilol 12.5 mg 12/07/19 21:00 12/10/19 09:13 Coreg PO 12.5 mg BID NATHANIEL Administration Clopidogrel Bisulfate 75 mg 12/07/19 13:11 12/10/19 09:13 Plavix PO 75 mg DAILY NATHANIEL Administration Ferrous Sulfate 300 mg 12/10/19 08:00 12/10/19 09:12 Feosol Liquid PO 300 mg DAILYWM NATHANIEL Administration Heparin Sodium (Porcine) 5,000 unit 12/06/19 21:00 12/10/19 09:25 SUBQ 5,000 unit BID NATHANIEL Administration Cefepime HCl 2 gm/ Sodium 100 mls @ 200 mls/hr 12/07/19 03:00 12/10/19 12:15 Chloride IV Infused Q8H NATHANIEL Infusion Vancomycin HCl 2 gm/ Sodium 500 mls @ 250 mls/hr 12/10/19 10:00 12/10/19 11:40 Chloride IV Infused Q24H NATHANIEL Infusion Insulin Aspart 3 - 11 unit 12/08/19 12:47 12/10/19 11:36 Novolog SUBQ 9 unit 0800,1200,1700,2100 NATHANIEL Administration Protocol Insulin Glargine 25 unit 12/10/19 09:00 12/10/19 07:56 Lantus Solostar SUBQ 25 unit BID NATHANIEL Administration Losartan Potassium 50 mg 12/07/19 16:00 12/10/19 09:12 Cozaar PO 50 mg DAILY NATHANIEL Administration Metoclopramide HCl 10 mg 12/09/19 21:00 12/09/19 21:26 Reglan PO 10 mg QPM NATHANIEL Administration Multivitamins/Minerals 1 tab 12/07/19 17:00 12/10/19 09:13 Theragran M PO 1 tab DAILYWM NATHANIEL Administration Oxycodone HCl 5 mg 12/06/19 19:37 12/10/19 00:15 Roxicodone PO 5 mg Q4HR PRN Administration Pain 5 to 7 Sodium Chloride 10 ml 12/06/19 19:37 12/08/19 14:26 Normal Saline Flush 0.9% IVP 10 ml PRN PRN Administration NEEDED PER PROVIDER ORDERS Sodium Chloride 10 ml 12/07/19 01:00 12/10/19 09:13 Normal Saline Flush 0.9% IVP 10 ml 0100,0900,1700 NATHANIEL Administration Tamsulosin HCl 0.4 mg 12/08/19 09:00 12/10/19 09:13 Flomax PO 0.4 mg DAILY NATHANIEL Administration - Physical Exam Wound/Incisions: negative: Other (He has a open wound lateral fifth metatarsal distal shaft and head area. The wound is grossly clean, no obvious pus pocket, skin necrosis or cellulitis. 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 He does have a history of chronic callosity to the fifth metatarsal, also over the past 2 months that apparently is not improving and developed infection requiring irrigation debridement. His preliminary cultures are positive for E. coli and enterococcus, sensitivities have not been determined. He is on intravenous antibiotics. His MRI scan was suggestive of osteomyelitis to the left fifth metatarsal. He will need wound care and initial nonweightbearing until the wound is deemed clean and healing. He also will heal better with better glucose control; suggest goal of blood sugar 150 or less. After discharge, he needs to be seen in the orthopedic clinic in [place] for follow-up x-rays and wound evaluation.
--- NOTE | 2019-12-10 12:50 | PROVIDER PROGRESS NOTE ---
Assessment/Plan - Problem List (1) Osteomyelitis Qualifiers: Osteomyelitis type: unspecified type Osteomyelitis location: foot Laterality: left Qualified Code(s): M86.9 - Osteomyelitis, unspecified Assessment/Plan: There was never a fever. The white blood count was normal and has decreased in to leukopenic range since admission, this is concerning. Duration of IV antibiotics will be 6 weeks per Orthopedic surgeon. Will order PICC line placement, I spoke to the Anesthesiologist today. The specimen from the debridement was sent to the lab yesterday and we are awaiting culture results then sensitivities, to determine choice of antibiotic Social work and career services coordinator and utilization management will help determine location and timing of IV treatment. Orthopedic surgeon has ordered no weightbearing of the left foot for 6 weeks. Patient will need a walker or a scooter fdc. (2) E coli infection Assessment/Plan: E. coli is pansensitive. IV cefepime has been started. We will await for any specimen from yesterday's debridement to be sent for culture, then sensitivities. (3) Enterococcal infection Assessment/Plan: The enterococcus was identified as faecalis and sensitivities are back today. It is Vanco sensitive. If there is a sample of bone sent for culture from yesterday's debridement surgery, will await that result. (4) KI (acute kidney injury) Assessment/Plan: Resolved with iv hydration. Creatinine improved from 1.2 to 1.1 today. Follow BMP daily. Avoid nephrotoxins. Vanco is being dosed by the pharmacist. (5) Coronary artery disease Assessment/Plan: The patient had an GA in June 2019, angiogram approximately August 2019, he received a stent. We do not have the angio results, despite requests for that. Continue with his aspirin, Plavix, statin (6) IDDM (insulin dependent diabetes mellitus) Assessment/Plan: A1c was elevated at 9.9, this reflects the ongoing infection. Continue with diabetic diet, long-acting and short acting sliding scale insulin coverage (7) Gastroparesis diabeticorum Assessment/Plan: As per history., No complaints with nausea or vomiting or abdominal pain during this hospital stay (8) Hyperlipidemia Assessment/Plan: Continue with his statin medication (9) Hypertension Qualifiers: Hypertension type: essential hypertension Qualified Code(s): I10 - Esse ntial (primary) hypertension Assessment/Plan: BP under control on his current medications (10) BPH (benign prostatic hyperplasia) Assessment/Plan: He is on his usual home treatment for this. (11) GERD (gastroesophageal reflux disease) Assessment/Plan: No complaints, he is on his usual treatment for this (12) Anemia Qualifiers: Anemia type: iron deficiency Assessment/Plan: Oral iron has been started. - Current Meds Current Meds: Current Medications Generic Name Dose Route Start Last Admin Trade Name Freq PRN Reason Stop Dose Admin Acetaminophen 650 mg 12/06/19 19:37 12/09/19 00:10 Tylenol PO 650 mg Q6HR PRN Administration Pain 1 to 4 Amlodipine Besylate 5 mg 12/08/19 09:00 12/10/19 09:12 Norvasc PO 5 mg DAILY NATHANIEL Administration Aspirin 81 mg 12/08/19 09:00 12/10/19 09:12 [facility] Aspirin PO 81 mg DAILY NATHANIEL Administration Atorvastatin Calcium 40 mg 12/07/19 21:00 12/09/19 21:25 Lipitor PO 40 mg QPM NATHANIEL Administration Carvedilol 12.5 mg 12/07/19 21:00 12/10/19 09:13 Coreg PO 12.5 mg BID NATHANIEL Administration Clopidogrel Bisulfate 75 mg 12/07/19 13:11 12/10/19 09:13 Plavix PO 75 mg DAILY NATHANIEL Administration Ferrous Sulfate 300 mg 12/10/19 08:00 12/10/19 09:12 Feosol Liquid PO 300 mg DAILYWM NATHANIEL Administration Heparin Sodium (Porcine) 5,000 unit 12/06/19 21:00 12/10/19 09:25 SUBQ 5,000 unit BID NATHANIEL Administration Cefepime HCl 2 gm/ Sodium 100 mls @ 200 mls/hr 12/07/19 03:00 12/10/19 12:15 Chloride IV Infused Q8H NATHANIEL Infusion Vancomycin HCl 2 gm/ Sodium 500 mls @ 250 mls/hr 12/10/19 10:00 12/10/19 11:40 Chloride IV Infused Q24H NATHANIEL Infusion Insulin Aspart 3 - 11 unit 12/08/19 12:47 12/10/19 11:36 Novolog SUBQ 9 unit 0800,1200,1700,2100 NATHANIEL Administration Protocol Insulin Glargine 25 unit 12/10/19 09:00 12/10/19 07:56 Lantus Solostar SUBQ 25 unit BID NATHANIEL Administration Losartan Potassium 50 mg 12/07/19 16:00 12/10/19 09:12 Cozaar PO 50 mg DAILY NATHANIEL Administration Metoclopramide HCl 10 mg 12/09/19 21:00 12/09/19 21:26 Reglan PO 10 mg QPM NATHANIEL Administration Multivitamins/Minerals 1 tab 12/07/19 17:00 12/10/19 09:13 Theragran M PO 1 tab DAILYWM NATHANIEL Administration Oxycodone HCl 5 mg 12/06/19 19:37 12/10/19 00:15 Roxicodone PO 5 mg Q4HR PRN Administration Pain 5 to 7 Sodium Chloride 10 ml 12/06/19 19:37 12/08/19 14:26 Normal Saline Flush 0.9% IVP 10 ml PRN PRN Administration NEEDED PER PROVIDER ORDERS Sodium Chloride 10 ml 12/07/19 01:00 12/10/19 09:13 Normal Saline Flush 0.9% IVP 10 ml 0100,0900,1700 NATHANIEL Administration Tamsulosin HCl 0.4 mg 12/08/19 09:00 12/10/19 09:13 Flomax PO 0.4 mg DAILY NATHANIEL Administration - Lab Result Fish Bone Diagrams: 12/10/19 05:35 12/10/19 05:35 - Additional Planning My Orders: My Active Orders 12/09/19 12:30 CUL, ANAEROBIC (QUEST) [REFLAB] Stat 12/09/19 Dinner Carb-controlled Diet [DIET] 12/09/19 21:00 Metoclopramide [Reglan] 10 mg PO QPM 12/10/19 Evaluate and Treat OT [OT] Routine Evaluate and Treat PT [PT] Routine 12/10/19 07:59 PICC Line Insert [RC] .ONCE 12/10/19 08:00 Ferrous Sulfate Liquid [Feosol Liquid] 300 mg PO DAILYWM 12/10/19 10:00 Vancomycin Inj [Vancomycin] 2 gm Sodium Chloride 0.9% [Normal Saline 0.9%] 500 ml IV Q24H 12/13/19 09:30 VANCOMYCIN TROUGH [CHEM] Timed Subjective - Subjective Patient Reports: Feeling Better, Resting Comfortably Objective Vital Signs: Vital Signs - 24 hr 12/09/19 12/09/19 12/09/19 12:55 13:00 13:05 Temperature 36.1 C L 36.2 C L 36.4 C L Heart Rate 74 75 72 Heart Rate [ Brachial] Respiratory 15 15 17 Rate Blood Pressure 113/77 120/77 120/73 Blood Pressure [Right Brachial artery] O2 Saturation 100 99 98 12/09/19 12/09/19 12/09/19 13:10 13:29 14:01 Temperature 36.4 C L 36.7 C 36.5 C Heart Rate 74 Heart Rate [ 71 72 Brachial] Respiratory 11 L 16 16 Rate Blood Pressure 139/87 H Blood Pressure 157/88 H 164/94 H [Right Brachial artery] O2 Saturation 98 96 98 12/09/19 12/09/19 12/09/19 15:54 17:56 22:01 Temperature 36.2 C L 36.8 C 37.0 C Heart Rate Heart Rate [ 74 81 83 Brachial] Respiratory 18 18 18 Rate Blood Pressure Blood Pressure 159/87 H 144/77 H 143/69 H [Right Brachial artery] O2 Saturation 99 98 97 12/10/19 12/10/19 12/10/19 00:10 03:13 07:35 Temperature 37.0 C 36.2 C L 36.6 C Heart Rate Heart Rate [ 81 83 78 Brachial] Respiratory 16 16 18 Rate Blood Pressure Blood Pressure 149/77 H 143/84 H 169/89 H [Right Brachial artery] O2 Saturation 96 94 96 12/10/19 09:10 Temperature Heart Rate Heart Rate [ 79 Brachial] Respiratory Rate Blood Pressure Blood Pressure 169/85 H [Right Brachial artery] O2 Saturation Oxygen O2 Source Room air I&O (Last 24 Hrs): Intake and Output Totals x24h 12/08/19 12/09/19 12/10/19 23:59 23:59 23:59 Intake Total 2800 3440 1919.667 Output Total 3300 3275 2400 Balance -500 165 -480.333 General: Alert, Oriented x3 HEENT: Mucous membr. moist/pink Neck: Supple Neuro: Alert, Non Focal Cardiovascular: Regular rate Respiratory: No respiratory distress Abdomen: Soft Extremities: No edema, Other (Several toes of right foot are amputated, left foot is bandaged) - Results Results: Laboratory Results WBC 3.8 x10^3/uL (4.8-10.8) L 12/10/19 05:35 RBC 3.42 10^6/uL (4.70-6.10) L 12/10/19 05:35 Hgb 10.5 g/dL (14.0-18.0) L 12/10/19 05:35 Hct 30.9 % (42.0-52.0) L 12/10/19 05:35 MCV 90.4 fL (80.0-94.0) 12/10/19 05:35 MCH 30.7 pg (27.0-31.0) 12/10/19 05:35 MCHC 34.0 g/dL (32.0-36.0) 12/10/19 05:35 RDW 12.1 % (12.0-15.0) 12/10/19 05:35 Plt Count 340 10^3/uL (130-450) 12/10/19 05:35 MPV 9.2 fL (7.4-11.4) 12/10/19 05:35 Neut # (Auto) 2.3 10^3/uL (1.5-6.6) 12/10/19 05:35 Lymph # (Auto) 0.9 10^3/uL (1.5-3.5) L 12/10/19 05:35 [place] # (Auto) 0.5 10^3/uL (0.0-1.0) 12/10/19 05:35 Eos # (Auto) 0.2 10^3/uL (0.0-0.7) 12/10/19 05:35 Baso # (Auto) 0.0 10^3/uL (0.0-0.1) 12/10/19 05:35 Absolute Nucleated RBC 0.00 x10^3/uL 12/10/19 05:35 Nucleated RBC % 0.0 /100WBC 12/10/19 05:35 ESR 66 mm/Hr (0-20) H 12/07/19 08:09 PT 14.7 secs (9.9-12.6) H 12/07/19 08:09 INR 1.3 (0.8-1.2) H 12/07/19 08:09 Sodium 134 mmol/L (135-145) L 12/10/19 05:35 Potassium 4.3 mmol/L (3.5-5.0) 12/10/19 05:35 Chloride 101 mmol/L (101-111) 12/10/19 05:35 Carbon Dioxide 24 mmol/L (21-32) 12/10/19 05:35 Anion Gap 9.0 (6-13) 12/10/19 05:35 BUN 19 mg/dL (6-20) 12/10/19 05:35 Creatinine 1.1 mg/dL (0.6-1.2) 12/10/19 05:35 Estimated GFR (MDRD) 67 (>89) L 12/10/19 05:35 Glucose 367 mg/dL (70-100) H 12/10/19 05:35 POC Whole Bld Glucose 288 mg/dL (70 - 100) H 12/10/19 11:08 Estimat Average Glucose 237 mg/dL (70-100) H 12/07/19 04:45 Hemoglobin A1c % 9.9 % (4.27-6.07) H 12/07/19 04:45 Calcium 8.5 mg/dL (8.5-10.3) 12/10/19 05:35 Iron 44 ug/dL (45-182) L 12/09/19 05:00 TIBC 188 ug/dL (250-450) L 12/09/19 05:00 % Saturation 23 % (20-50) 12/09/19 05:00 Transferrin 134 mg/dL (180-329) L 12/09/19 05:00 Total Bilirubin 0.8 mg/dL (0.2-1.0) 12/07/19 04:45 Direct Bilirubin 0.2 mg/dL (0.1-0.5) 12/07/19 04:45 AST 11 IU/L (10-42) 12/07/19 04:45 ALT 13 IU/L (10-60) 12/07/19 04:45 Alkaline Phosphatase 65 IU/L (42-121) 12/07/19 04:45 C-Reactive Protein 8.2 mg/dL (0-1.0) H 12/06/19 15:35 C-React Prot High Sens 71.9 mg/L 12/07/19 04:45 Total Protein 6.2 g/dL (6.7-8.2) L 12/07/19 04:45 Albumin 2.9 g/dL (3.2-5.5) L 12/07/19 04:45 Globulin 3.3 g/dL (2.1-4.2) 12/07/19 04:45 Vitamin B12 605 pg/mL (180-914) 12/09/19 05:00 Folate 20.07 ng/mL (5.90 - >24.8) 12/09/19 05:00 Nasal Screen MRSA (PCR) NEGATIVE (NEGATIVE) 12/08/19 12:32 Dose 1.75 12/09/19 11:44 Last Dose Date 12/09/19 12/10/19 05:35 Last Dose Time 0014 12/10/19 05:35 Vancomycin Trough 37.6 ug/mL (10.0-20.0) H* 12/09/19 11:44 Random Vancomycin 15.1 ug/mL 12/10/19 05:35 - Procedures Procedures: Procedures INSERTION OF INFUSION DEV INTO SUP VENA CAVA, PERC APPROACH (07/21/19) INSERTION OF INFUSION DEVICE INTO R ATRIUM, PERC APPROACH (06/09/19) ULTRASONOGRAPHY OF SUPERIOR VENA CAVA, GUIDANCE (06/09/19)
[2019-12-10] MEDS: ATORVASTATIN 40 MG TABLET PO SCH (21:14)
[2019-12-10] MEDS: METOCLOPRAMIDE 10 MG TABLET PO SCH (21:14)
[2019-12-11] MEDS: SODIUM CHLORIDE FLUSH 0.9% 10 ML SYRINGE IVP SCH ×3 (00:25→21:50)
[2019-12-11] MEDS: CEFEPIME 2 GM in SODIUM CHLORIDE 0.9% MINIBAG 100 ML IV SCH ×3 (03:07→19:23)
[2019-12-11 05:34] LABS: BASOPHILS % (AUTO) 0.8 %; EOSINOPHILS # (AUTO) 0.2 10^3/uL (0.0-0.7); EOSINOPHILS % (AUTO) 3.6 %; HGB - HEMOGLOBIN 10.5 g/dL (14.0-18.0); LYMPHOCYTES % (AUTO) 20.4 %; MEAN CORPUSCULAR HEMOGLOBIN 29.5 pg (27.0-31.0); MEAN CORPUSCULAR VOLUME 89.3 fL (80.0-94.0); MONOCYTES # (AUTO) 0.5 10^3/uL (0.0-1.0); MONOCYTES % (AUTO) 9.5 %; NEUTROPHILS # (AUTO) 3.3 10^3/uL (1.5-6.6); NEUTROPHILS % (AUTO) 65.5 %; PLT - PLATELET COUNT 327 10^3/uL (130-450); RED BLOOD COUNT 3.56 10^6/uL (4.70-6.10); RED CELL DISTRIBUTION WIDTH 12.1 % (12.0-15.0); WHITE BLOOD COUNT 5.1 x10^3/uL (4.8-10.8)
[2019-12-11 05:46] LABS: CALCIUM 8.9 mg/dL (8.5-10.3); CREATININE 1.1 mg/dL (0.6-1.2)
[2019-12-11] MEDS: FERROUS SULFATE 300 MG/5 ML UDC PO SCH (08:05)
[2019-12-11] MEDS: MULTIVITAMIN W/MINERALS TABLET PO SCH (08:05)
[2019-12-11] MEDS: INSULIN ASPART 300 UNIT/3 ML PEN SUBQ SCH ×6 (08:07→20:51)
[2019-12-11] MEDS: CLOPIDOGREL 75 MG TABLET PO SCH (09:19)
[2019-12-11] MEDS: LOSARTAN 50 MG TABLET PO SCH (09:19)
[2019-12-11] MEDS: ASPIRIN CHEW 81 MG TABLET PO SCH (09:19)
[2019-12-11] MEDS: TAMSULOSIN 0.4 MG CAPSULE PO SCH (09:19)
[2019-12-11] MEDS: carvediloL 12.5 MG TABLET PO SCH ×2 (09:19→21:49)
[2019-12-11] MEDS: amLODIPine 5 MG TABLET PO SCH (09:19)
[2019-12-11] MEDS: INSULIN GLARGINE 300 UNIT/3 ML PEN SUBQ SCH ×2 (09:20→21:50)
[2019-12-11] MEDS: HEPARIN 5,000 UNIT/ML VIAL SUBQ SCH ×2 (09:21→21:49)
[2019-12-11] MEDS: VANCOMYCIN INJ 2 GM in SODIUM CHLORIDE 0.9% 500 ML IV SCH (10:06)
--- NOTE | 2019-12-11 15:01 | XRAY Report ---
PROCEDURE: Chest for Line Placement INDICATIONS: line placement TECHNIQUE: One view of the chest was acquired. COMPARISON: 12/06/2019 FINDINGS: Surgical changes and devices: Right-sided PICC line tip is in SVC.. Lungs and pleura: No pleural effusions or pneumothorax. Mild pulmonary vascular congestion is seen. No focal infiltrate. Mediastinum: Mediastinal contours appear normal. Heart size is enlarged. Bones and chest wall: No suspicious bony lesions. Overlying soft tissues appear unremarkable. IMPRESSION: Right-sided PICC line tip is in SVC. Cardiomegaly and mild pulmonary vascular congestion. No focal in filtrate, pleural effusion or pneumothorax. Reviewed by: Marcelino Alberts MD on 12/11/2019 3:00 PM PDT Approved by: Marcelino Alberts MD on 12/11/2019 3:00 PM PDT Station ID: [id number]
--- NOTE | 2019-12-11 15:03 | ANESTHESIA PROCEDURE NOTE ---
Anesth Central Line Template - Central Line Central Line Preparation: Consent Obtained, Time out completed (Confirmed by CXR, 4cm exposed, trimmed at 52cm), Ultrasound used, Sterile prep and drape Central line location: Right Basilic Central line type: PICC Single Lumen Central line catheter tip site resides: Superior vena cava (SVC) Central line aftercare: Secured (tegaderm), Placement confirmed, No complications, Bundle checklist complete, Pt tolerated well
[2019-12-11] MEDS ORDERED: PROPOFOL 200 MG/20 ML VIAL IVP ONE (16:25)
[2019-12-11] MEDS ORDERED: LIDOCAINE-MPF 2% 5 ML VIAL IM ONE (16:25)
[2019-12-11] MEDS ORDERED: fentaNYL 100 MCG/2 ML VIAL IVP ONE (16:25)
--- NOTE | 2019-12-11 18:58 | PROVIDER PROGRESS NOTE ---
Assessment/Plan - Problem List (1) Osteomyelitis Qualifiers: Osteomyelitis type: unspecified type Osteomyelitis location: foot Laterality: left Qualified Code(s): M86.9 - Osteomyelitis, unspecified Assessment/Plan: The sample from debridement is growing only E. coli. The cultures [place] [facility] which led to his hospitalization, have grown E. coli and Enterococcus. He is therefore on cefepime and Vanco for both of those bacteria. We are awaiting final results of all cultures to determine their sensitivities. The plan appears to be that he will need treatment with a Flouroquinolone for 6 weeks, using Levaquin 750 mg IV daily. Social Work and Discharge Nurse and Utilization Management were informed of this in order to arrange location and frequency of IV dosing. The patient states he would prefer to have home treatment versus coming to [place] [facility] [place], but will agree to what ever his insurance covers. He is still waiting for PICC line insertion today. (9) Hypertension Qualifiers: Hypertension type: essential hypertension Qualified Code(s): I10 - Sharla bazan (primary) hypertension (12) Anemia Qualifiers: Anemia type: iron deficiency - Current Meds Current Meds: Current Medications Generic Name Dose Route Start Last Admin Trade Name Freq PRN Reason Stop Dose Admin Acetaminophen 650 mg 12/06/19 19:37 12/09/19 00:10 Tylenol PO 650 mg Q6HR PRN Administration Pain 1 to 4 Amlodipine Besylate 5 mg 12/08/19 09:00 12/11/19 09:19 Norvasc PO 5 mg DAILY NATHANIEL Administration Aspirin 81 mg 12/08/19 09:00 12/11/19 09:19 [facility] Aspirin PO 81 mg DAILY NATHANIEL Administration Atorvastatin Calcium 40 mg 12/07/19 21:00 12/10/19 21:14 Lipitor PO 40 mg QPM NATHANIEL Administration Carvedilol 12.5 mg 12/07/19 21:00 12/11/19 09:19 Coreg PO 12.5 mg BID NATHANEIL Administration Clopidogrel Bisulfate 75 mg 12/07/19 13:11 12/11/19 09:19 Plavix PO 75 mg DAILY NATHANIEL Administration Ferrous Sulfate 300 mg 12/10/19 08:00 12/11/19 08:05 Feosol Liquid PO 300 mg DAILYWM NATHANIEL Administration Heparin Sodium (Porcine) 5,000 unit 12/06/19 21:00 12/11/19 09:21 SUBQ 5,000 unit BID NATHANIEL Administration Cefepime HCl 2 gm/ Sodium 100 mls @ 200 mls/hr 12/07/19 03:00 12/11/19 12:20 Chloride IV Infused Q8H NATHANIEL Infusion Vancomycin HCl 2 gm/ Sodium 500 mls @ 250 mls/hr 12/10/19 10:00 12/11/19 12:06 Chloride IV Infused Q24H NATHANIEL Infusion Insulin Aspart 3 - 11 unit 12/08/19 12:47 12/11/19 17:24 Novolog SUBQ 5 unit 0800,1200,1700,2100 NATHANIEL Administration Protocol Insulin Aspart 5 unit 12/11/19 12:00 12/11/19 17:24 Novolog SUBQ 5 unit TIDWM NATHANIEL Administration Protocol Insulin Glargine 25 unit 12/10/19 09:00 12/11/19 09:20 Lantus Solostar SUBQ 25 unit BID NATHANIEL Administration Losartan Potassium 50 mg 12/07/19 16:00 12/11/19 09:19 Cozaar PO 50 mg DAILY NATHANIEL Administration Metoclopramide HCl 10 mg 12/09/19 21:00 12/10/19 21:14 Reglan PO 10 mg QPM NATHANIEL Administration Multivitamins/Minerals 1 tab 12/07/19 17:00 12/11/19 08:05 Theragran M PO 1 tab DAILYWM NATHANIEL Administration Oxycodone HCl 5 mg 12/06/19 19:37 12/10/19 00:15 Roxicodone PO 5 mg Q4HR PRN Administration Pain 5 to 7 Sodium Chloride 10 ml 12/06/19 19:37 12/08/19 14:26 Normal Saline Flush 0.9% IVP 10 ml PRN PRN Administration NEEDED PER PROVIDER ORDERS Sodium Chloride 10 ml 12/07/19 01:00 12/11/19 10:06 Normal Saline Flush 0.9% IVP 10 ml 0100,0900,1700 NATHANIEL Administration Tamsulosin HCl 0.4 mg 12/08/19 09:00 12/11/19 09:19 Flomax PO 0.4 mg DAILY NATHANIEL Administration - Lab Result Fish Bone Diagrams: 12/11/19 05:24 12/11/19 05:24 - Additional Planning My Orders: My Active Orders 12/11/19 12:00 Insulin Aspart [NovoLOG] 5 unit SUBQ TIDWM 12/13/19 09:30 VANCOMYCIN TROUGH [CHEM] Timed Subjective - Subjective Patient Reports: Resting Comfortably, Other (Wants to know when his PICC line will be inserted. Wants to know how often his antibiotics will need to be done and where they will be administered (he prefers home over having to come to the [facility] clinic daily for 6 weeks)) Objective Vital Signs: Vital Signs - 24 hr 12/10/19 12/10/19 12/11/19 21:39 23:50 03:05 Temperature 36.8 C 36.8 C 36.6 C Heart Rate [ 68 82 79 Brachial] Heart Rate [ Sitting] Respiratory 20 16 16 Rate Blood Pressure 142/87 H 150/90 H 151/84 H [Right Brachial artery] Blood Pressure [Sitting] O2 Saturation 96 98 97 12/11/19 12/11/19 12/11/19 07:25 11:42 15:30 Temperature 36.8 C 37.1 C Heart Rate [ 81 76 Brachial] Heart Rate [ 77 Sitting] Respiratory 18 18 Rate Blood Pressure 127/83 H 126/77 [Right Brachial artery] Blood Pressure 127/82 H [Sitting] O2 Saturation 97 93 Oxygen O2 Source Room air I&O (Last 24 Hrs): Intake and Output Totals x24h 12/09/19 12/10/19 12/11/19 23:59 23:59 23:59 Intake Total 3440 3049.667 1660 Output Total 3275 3625 2365 Balance 165 -575.333 -705 - Results Results: Laboratory Results WBC 5.1 x10^3/uL (4.8-10.8) 12/11/19 05:24 RBC 3.56 10^6/uL (4.70-6.10) L 12/11/19 05:24 Hgb 10.5 g/dL (14.0-18.0) L 12/11/19 05:24 Hct 31.8 % (42.0-52.0) L 12/11/19 05:24 MCV 89.3 fL (80.0-94.0) 12/11/19 05:24 MCH 29.5 pg (27.0-31.0) 12/11/19 05:24 MCHC 33.0 g/dL (32.0-36.0) 12/11/19 05:24 RDW 12.1 % (12.0-15.0) 12/11/19 05:24 Plt Count 327 10^3/uL (130-450) 12/11/19 05:24 MPV 9.0 fL (7.4-11.4) 12/11/19 05:24 Neut # (Auto) 3.3 10^3/uL (1.5-6.6) 12/11/19 05:24 Lymph # (Auto) 1.0 10^3/uL (1.5-3.5) L 12/11/19 05:24 Storey # (Auto) 0.5 10^3/uL (0.0-1.0) 12/11/19 05:24 Eos # (Auto) 0.2 10^3/uL (0.0-0.7) 12/11/19 05:24 Baso # (Auto) 0.0 10^3/uL (0.0-0.1) 12/11/19 05:24 Absolute Nucleated RBC 0.00 x10^3/uL 12/11/19 05:24 Nucleated RBC % 0.0 /100WBC 12/11/19 05:24 ESR 66 mm/Hr (0-20) H 12/07/19 08:09 PT 14.7 secs (9.9-12.6) H 12/07/19 08:09 INR 1.3 (0.8-1.2) H 12/07/19 08:09 Sodium 134 mmol/L (135-145) L 12/11/19 05:24 Potassium 4.0 mmol/L (3.5-5.0) 12/11/19 05:24 Chloride 101 mmol/L (101-111) 12/11/19 05:24 Carbon Dioxide 26 mmol/L (21-32) 12/11/19 05:24 Anion Gap 7.0 (6-13) 12/11/19 05:24 BUN 21 mg/dL (6-20) H 12/11/19 05:24 Creatinine 1.1 mg/dL (0.6-1.2) 12/11/19 05:24 Estimated GFR (MDRD) 67 (>89) L 12/11/19 05:24 Glucose 284 mg/dL (70-100) H 12/11/19 05:24 POC Whole Bld Glucose 182 mg/dL (70 - 100) H 12/11/19 16:59 Estimat Average Glucose 237 mg/dL (70-100) H 12/07/19 04:45 Hemoglobin A1c % 9.9 % (4.27-6.07) H 12/07/19 04:45 Calcium 8.9 mg/dL (8.5-10.3) 12/11/19 05:24 Iron 44 ug/dL (45-182) L 12/09/19 05:00 TIBC 188 ug/dL (250-450) L 12/09/19 05:00 % Saturation 23 % (20-50) 12/09/19 05:00 Transferrin 134 mg/dL (180-329) L 12/09/19 05:00 Total Bilirubin 0.8 mg/dL (0.2-1.0) 12/07/19 04:45 Direct Bilirubin 0.2 mg/dL (0.1-0.5) 12/07/19 04:45 AST 11 IU/L (10-42) 12/07/19 04:45 ALT 13 IU/L (10-60) 12/07/19 04:45 Alkaline Phosphatase 65 IU/L (42-121) 12/07/19 04:45 C-Reactive Protein 8.2 mg/dL (0-1.0) H 12/06/19 15:35 C-React Prot High Sens 71.9 mg/L 12/07/19 04:45 Total Protein 6.2 g/dL (6.7-8.2) L 12/07/19 04:45 Albumin 2.9 g/dL (3.2-5.5) L 12/07/19 04:45 Globulin 3.3 g/dL (2.1-4.2) 12/07/19 04:45 Vitamin B12 605 pg/mL (180-914) 12/09/19 05:00 Folate 20.07 ng/mL (5.90 - >24.8) 12/09/19 05:00 Nasal Screen MRSA (PCR) NEGATIVE (NEGATIVE) 12/08/19 12:32 Dose 1.75 12/09/19 11:44 Last Dose Date 12/09/19 12/10/19 05:35 Last Dose Time 0014 09/13/20 05:35 Vancomycin Trough 37.6 ug/mL (10.0-20.0) H* 12/09/19 11:44 Random Vancomycin 15.1 ug/mL 12/10/19 05:35 - Procedures Procedures: Procedures INSERTION OF INFUSION DEV INTO SUP VENA CAVA, PERC APPROACH (07/21/19) INSERTION OF INFUSION DEVICE INTO R ATRIUM, PERC APPROACH (06/09/19) ULTRASONOGRAPHY OF SUPERIOR VENA CAVA, GUIDANCE (06/09/19)
[2019-12-11] MEDS: ATORVASTATIN 40 MG TABLET PO SCH (21:49)
[2019-12-11] MEDS: METOCLOPRAMIDE 10 MG TABLET PO SCH (21:49)
[2019-12-11] MEDS: oxyCODONE 5 MG TABLET PO PRN (23:06)
[2019-12-12] MEDS: ACETAMINOPHEN 325 MG TABLET PO PRN (01:02)
[2019-12-12] MEDS: SODIUM CHLORIDE FLUSH 0.9% 10 ML SYRINGE IVP PRN (01:04)
[2019-12-12] MEDS: SODIUM CHLORIDE FLUSH 0.9% 10 ML SYRINGE IVP SCH ×2 (01:04→03:18)
[2019-12-12] MEDS: CEFEPIME 2 GM in SODIUM CHLORIDE 0.9% MINIBAG 100 ML IV SCH (03:18)
[2019-12-12] MEDS: INSULIN GLARGINE 300 UNIT/3 ML PEN SUBQ SCH (08:13)
[2019-12-12] MEDS: MULTIVITAMIN W/MINERALS TABLET PO SCH (08:55)
[2019-12-12] MEDS: ASPIRIN CHEW 81 MG TABLET PO SCH (08:55)
[2019-12-12] MEDS: CLOPIDOGREL 75 MG TABLET PO SCH (08:55)
[2019-12-12] MEDS: FERROUS SULFATE 300 MG/5 ML UDC PO SCH (08:56)
[2019-12-12] MEDS: HEPARIN 5,000 UNIT/ML VIAL SUBQ SCH (08:56)
[2019-12-12] MEDS: TAMSULOSIN 0.4 MG CAPSULE PO SCH (08:56)
[2019-12-12] MEDS: amLODIPine 5 MG TABLET PO SCH (08:56)
[2019-12-12] MEDS: carvediloL 12.5 MG TABLET PO SCH (08:57)
[2019-12-12] MEDS: INSULIN ASPART 300 UNIT/3 ML PEN SUBQ SCH ×4 (08:59→12:53)
[2019-12-12] MEDS ORDERED: levoFLOXacin 750 MG/150 ML 750 MG/150 ML BAG IV SCH (09:00)
[2019-12-12] MEDS: LOSARTAN 50 MG TABLET PO SCH (09:03)
[2019-12-12 10:33] LABS: BASOPHILS % (AUTO) 0.5 %; EOSINOPHILS # (AUTO) 0.1 10^3/uL (0.0-0.7); EOSINOPHILS % (AUTO) 2.6 %; HGB - HEMOGLOBIN 11.2 g/dL (14.0-18.0); LYMPHOCYTES # (AUTO) 0.8 10^3/uL (1.5-3.5); LYMPHOCYTES % (AUTO) 14.8 %; MEAN CORPUSCULAR HEMOGLOBIN 30.3 pg (27.0-31.0); MEAN CORPUSCULAR HGB CONC 33.5 g/dL (32.0-36.0); MEAN CORPUSCULAR VOLUME 90.3 fL (80.0-94.0); MEAN PLATELET VOLUME 9.1 fL (7.4-11.4); MONOCYTES # (AUTO) 0.5 10^3/uL (0.0-1.0); MONOCYTES % (AUTO) 8.6 %; NEUTROPHILS % (AUTO) 73.3 %; PLT - PLATELET COUNT 329 10^3/uL (130-450); RED CELL DISTRIBUTION WIDTH 12.2 % (12.0-15.0); WHITE BLOOD COUNT 5.5 x10^3/uL (4.8-10.8)
[2019-12-12 10:40] LABS: CREATININE 1.1 mg/dL (0.6-1.2)
[2019-12-12] MEDS ORDERED: PROCHLORPERAZINE 5 MG TABLET PO PRN (11:44)
--- NOTE | 2019-12-12 15:31 | Discharge Plan ---
Discharge Plan Problem Reviewed?: Yes Disposition: Home Health Service Condition: Poor Prescriptions: oxyCODONE [Roxicodone] 5 mg PO Q4HR PRN #20 tablet PRN Reason: Pain 5 to 7 Prochlorperazine [Compazine] 10 mg PO Q6HR PRN #20 tablet PRN Reason: Nausea / Vomiting Ferrous Sulfate 325 mg PO DAILY #30 tablet levoFLOXacin [Levaquin] 750 mg PO DAILY #42 tablet Diet: Diabetic Activity Restrictions: Activity as Tolerated Shower Restrictions: No (fall precaution) Instruction Topics: Prochlorperazine tablets, Levofloxacin tablets, Oxycodone tablets or capsules, Diabetes Manage A1C Test, Hyperglycemia Steps, Hypoglycemia Steps Health Concerns: diabetes wound care Plan of Treatment: advise you have tight sugar control, less than 150 glucose for his wound healing. Per surgeon's recommendation, you are arranged to have wound care nurse to help dress change for you in your home, advise you initial non-weightbearing until the wound is deemed clean and healing, advise you see in the orthopedic clinic in [place] for follow-up x-rays and wound evaluation in 1-2 weeks. You are prescribed PO Levaquin for your wound infection, oxycodone PRN for your pain control, compazine PRN for your chronic nausea control. Care Goals: stabilization and improvement of your wound infection Assessment: discussed the care plan with you, you agreed and understood. Additional Instructions or Follow Up instructions: you may followup with your PCP in one to two weeks, followup with orthopedics in 1-2 weeks. Should your symptoms return or worsen, you may present ER or call 911 for help. Follow-Up Care: Home Health - RN No Smoking: If you smoke, Please STOP! Call for help. Follow-up with: Lena Kirkland ARNP [Primary Care Provider] -
--- NOTE | 2019-12-12 16:38 | DISCHARGE SUMMARY ---
"Discharge Summary Admit Date: 12/06/19 Discharge Date: 12/12/19 Discharging Provider: Fran Rivers Primary Care Provider: Lena Dent Condition at Discharge: Poor Discharge Disposition: Home Health Service Discharge Facility Name: home - DIAGNOSES Discharge Diagnoses with Status of Each Condition: (1) Osteomyelitis Orthopedic surgeon did Debridement of left foot diabetic ulcer. pt was advised no weightbearing of the left foot for 6 weeks by orthopedics. PT/OT recommend a Walker for pt, social insurance analyst will arrange for pt. Pt declined to have home PT/OT. wound culture reveals Ecoli and Enterococcus Faecalis positive and both sensitive to Levaquin. Pharmacy reveals PO and IV of Levaquin with nearly similar pharmacokinetics. Beside of difficult for pt's insurance coverage of IV in his home, and pt refused to go to [facility] clinic for IV of Levaquin, Levaquin is changed to PO for 6 weeks, PICC is d/c. Before pt was d/c, I with wound nurse changed wound dress for pt. pt did not need second debridement, wound nurse clean the wound site with NS and packed. There is small drainage in wound debridement site, wound site had not packing gauze. Wound nurse will put packing on debridement site. pt was ordered home health RN for dressing change and wound care, home health Aid ordered for pt as well. Orthopedics surgeon recommended three times per week for dressing change, and followup with his office in 1/2 weeks. pt had never a fever. The white blood count was normal and has decreased into leukopenic range since admission, this is concerning. (2) KI (acute kidney injury) resolved, Creatinine improved to 1.1. advise pt keep hydration at home (3) Coronary artery disease stable, continue home meds regimen (4) IDDM (insulin dependent diabetes mellitus) chronic/stable (5) Gastroparesis diabeticorum chronic/stable. pt's zofran is changed to Compazine because pt has 6 weeks Levaquin, reduced long QTC effect from Zofran when combination with Levaquin (6) Hyperlipidemia chronic/stable (7) Hypertension stable (8) BPH (benign prostatic hyperplasia) chronic/stable (9) GERD (gastroesophageal reflux disease) stable (10) Anemia stable and improved. - HPI History of Present Illness: refer from Dr. Shoemaker's HPI on 12/06/2019 Patient is a 64-year-old male with history significant for diabetes mellitus type 1, coronary artery disease status post PCI with stent, hypertension, hyperlipidemia, diabetic gastroparesis, GERD who presented to the ED from the [facility] wound clinic. This was his first visit to the [facility] clinic. He reports that it has taken him 3 months to get this appointment due to the pandemic. He is in need of an MRI of the left foot. It would have taken him longer to have it done outpatient. So he was sent to the ED to have the MRI done sooner. For the past weeks the patient's wound on the lateral plantar surface of the left foot has been draining foul-smelling bloody liquid. The patient reports he was prescribed an antibiotic which he has been taking for 4 days. He does not remember the name of the antibiotic. He denies fever but reports chills. He denies chest pain, dyspnea, abdominal pain, nausea, vomiting. He complains of back spasms. MRI findings were concerning for osteomyelitis. Dr. Nelson with orthopedic surgery was contacted and is agreeable to see the patient in consult tomorrow. - CONSULTS | PROCEDURES Consultations: Dr. Nelson and Dr. Diggs Procedures: debridgement on left foot. - HOSPITAL COURSE Hospital Course: Patient was admitted for the lateral plantar infection of the left foot. pt states that it is been going on for over 3 months and he was unable to obtain care. MRI of left foot reveals Findings were concerning for osteomyelitis. He is presently against any type of amputation per orthopedics's assessment. Preoperative ABIs and CTA of the lower extremity revealed that pt has enough healing potential for a superficial debridement and not immediate amputation. Erika holm did debridgement for pt.wound culture reveals Ecoli and Enterococcus Faecalis positive and both sensitive to Levaquin. Pt had PT/OT Evaluation and treatment in the hospital. Patient declined home health physical therapist and occupational therapist. Surgeon recommended patient have 6-week of Levaquin and dressing change with wound care. Pharmacy advised oral Levaquin and intravenous Levaquin has similar pharmacodynamic features. Patient was arranged for home health RN and the home health aide to help patient for wound care and dressing change.Patient had a dressing change and wound assessment as well by wound nurse and me before she was discharged. All patient's concern and question was appropriately answered. - ALLERGIES Allergies/Adverse Reactions: Allergies Allergy/AdvReac Type Severity Reaction Status Date / Time No Known Drug Allergies Allergy Verified 12/06/19 14:42 - MEDICATIONS Home Medications: Ambulatory Orders Medication Instructions Recorded Confirmed Insulin Regular Human [NovoLIN R] 2 - 10 unit SUBQ TIDWM 06/09/19 12/07/19 Tamsulosin [Flomax] 0.4 mg PO DAILY 06/09/19 12/07/19 Insulin NPH Human [Humulin N] 35 unit SUBQ BID 06/10/19 12/07/19 Pantoprazole [Protonix] 40 mg PO QDAC #30 tablet 07/28/19 12/07/19 Senna [Senokot] 8.6 mg PO DAILY PRN #14 tablet 07/28/19 12/07/19 amLODIPine [Norvasc] 5 mg PO DAILY #30 tablet 07/28/19 12/07/19 Aspirin 81 mg PO DAILY 12/07/19 12/07/19 Atorvastatin [Lipitor] 40 mg PO DAILY 12/07/19 12/07/19 Carvedilol [Coreg] 25 mg PO DAILY 12/07/19 12/07/19 Clopidogrel [Plavix] 75 mg PO DAILY 12/07/19 12/07/19 Losartan Potassium 50 mg PO DAILY 12/07/19 12/07/19 Metoclopramide [Reglan] 10 mg PO TID 12/07/19 12/07/19 Ferrous Sulfate 325 mg PO DAILY #30 tablet 12/12/19 Prochlorperazine [Compazine] 10 mg PO Q6HR PRN #20 tablet 12/12/19 levoFLOXacin [Levaquin] 750 mg PO DAILY #42 tablet 12/12/19 oxyCODONE [Roxicodone] 5 mg PO Q4HR PRN #20 tablet 12/12/19 - PHYSICAL EXAM AT DISCHARGE General Appearance: positive: No acute distress, Alert. negative: Lethargic Eyes Bilateral: positive: Normal inspection, PERRL, No lid inflammation ENT: positive: ENT inspection nml, No signs of dehydration. negative: Purulent nasal drainage Neck: positive: Nml inspection, Thyroid nml, Trachea midline. negative: Thyromegaly, Stiff neck, Tracheal deviation Respiratory: positive: Chest non-tender, No respiratory distress, Breath sounds nml. negative: Wheezes, Rales, Rhonchi Cardiovascular: positive: Regular rate & rhythm, No murmur. negative: Tachycardia, Bradycardia, Systolic murmur, Diastolic murmur Peripheral Pulses: positive: 2+ Abdomen: positive: Non-tender, Nml bowel sounds, No distention. negative: Tenderness, Guarding, Rebound Back: positive: Nml inspection Skin: positive: Warm, Dry, Other (here is small drainage in wound debridement site, wound site had not packing gauze. Wound nurse will put packing on debridement site, there is minimally swelling around the wound site.). negative: Cyanosis, Diaphoresis, Pallor Extremities: positive: Non-tender, Full ROM. negative: Calf tenderness, Zak's sign/cords Neurologic/Psychiatric: positive: Oriented x3, Motor nml, Sensation nml. negative: Weakness, Sensory loss, Facial droop, Slurred/abnml speech, Depressed mood/affect - LABS Result Diagrams: 12/12/19 10:20 12/12/19 10:20 - FOLLOW UP Follow Up: advise you have tight sugar control, less than 150 glucose for his wound healing. Per surgeon's recommendation, you are arranged to have wound care nurse to help dress change for you in your home, advise you initial non-weightbearing until the wound is deemed clean and healing, advise you see in the orthopedic clinic in [place] for follow-up x-rays and wound evaluation in 1-2 weeks. You are prescribed PO Levaquin for your wound infection, oxycodone PRN for your pain control, compazine PRN for your chronic nausea control. you may followup with your PCP in one to two weeks, followup with orthopedics in 1-2 weeks. Should your symptoms return or worsen, you may present ER or call 911 for help. - TIME SPENT Time Spent in Discharge (Minutes): 30"
[2019-12-12 17:06] VITALS: BP 117/67
[2019-12-13] MEDS ORDERED: levoFLOXacin 250 MG TABLET PO SCH (09:00)
== END 2019-12-12 17:55 | disposition home health service (06) | DRG 629 ==
LOC: ED 14:28 → MS2 19:37
PROVIDERS: ADMIT Internal Medicine; ATTEND Nurse Practitioner Gerontology
PROC: 0QBP0ZZ Excision of Left Metatarsal, Open Approach (ICD-10-PCS; principal; 2019-12-09 08:00)
PROC: 02HV33Z Insertion of Infusion Device into Superior Vena Cava, Percutaneous Approach (ICD-10-PCS; 2019-12-11)
DX: E11.69 Type 2 diabetes mellitus with other specified complication (principal); M86.8X7 Other osteomyelitis, ankle and foot; E11.621 Type 2 diabetes mellitus with foot ulcer; L97.529 Non-pressure chronic ulcer of other part of left foot with unspecified severity; L97.522 Non-pressure chronic ulcer of other part of left foot with fat layer exposed; E78.00 Pure hypercholesterolemia, unspecified; F17.200 Nicotine dependence, unspecified, uncomplicated; E11.51 Type 2 diabetes mellitus with diabetic peripheral angiopathy without gangrene; I10 Essential (primary) hypertension; E11.40 Type 2 diabetes mellitus with diabetic neuropathy, unspecified; E11.43 Type 2 diabetes mellitus with diabetic autonomic (poly)neuropathy; K31.84 Gastroparesis; B95.2 Enterococcus as the cause of diseases classified elsewhere; B96.20 Unspecified Escherichia coli [E. coli] as the cause of diseases classified elsewhere; N17.9 Acute kidney failure, unspecified; D50.9 Iron deficiency anemia, unspecified; E78.5 Hyperlipidemia, unspecified; I25.10 Atherosclerotic heart disease of native coronary artery without angina pectoris; K21.9 Gastro-esophageal reflux disease without esophagitis; N40.0 Benign prostatic hyperplasia without lower urinary tract symptoms; Z79.01 Long term (current) use of anticoagulants; Z79.82 Long term (current) use of aspirin; Z79.4 Long term (current) use of insulin; Z79.899 Other long term (current) drug therapy; I25.2 Old myocardial infarction; Z72.89 Other problems related to lifestyle; Z95.5 Presence of coronary angioplasty implant and graft; Z89.421 Acquired absence of other right toe(s)
CPT/HCPCS: 36415; 71045; 73706; 73720; 80048; 80076; 80202; 82607; 82746; 83036; 83540; 84466; 85025; 85610; 85651; 86140; 86141; 87070; 87077; 87181; 87205; 87640; 93005; 93922; 96365; 96375; 97116; 97161; 97165; 99284; 99285; A9270; A9585; J1815; J3370; J7120; Q0162; Q9967

== ENCOUNTER 2019-12-18 08:00 | Outpatient (CLI) | payer MEDICARE | END 2019-12-18 23:59 | disposition home or self-care (01) | LOC: LAB.R 08:00 | PROVIDERS: ATTEND Physician Assistant | DX: L97.526 Non-pressure chronic ulcer of other part of left foot with bone involvement without evidence of necrosis (principal); Z20.828 Contact with and (suspected) exposure to other viral communicable diseases ==

== ENCOUNTER 2019-12-18 08:52 | Outpatient (CLI) | payer MEDICARE ==
--- NOTE | 2019-12-18 14:10 | XRAY Report ---
PROCEDURE: Foot 3 View LT INDICATIONS: DIABETIC FOOT ULCER LEFT TECHNIQUE: 3 views of the foot were acquired. COMPARISON: MR Foot 12/06/19 FINDINGS: Bones: Destructive change are present in the distal fifth metatarsal, as well as proximal first phal anyx. This was identified on MR foot of 12/06/2019. There appears to be progressive destruction. Soft tissues: No tibiotalar joint effusion. Achilles tendon appears normal. IMPRESSION: Significant fifth digit destructive changes appearing slightly progressive compared to MRI. Overall a ppearance is suggestive of osteomyelitis. Reviewed by: Lona Chan MD on 12/18/2019 2:09 PM PDT Approved by: Lona Chan MD on 12/18/2019 2:09 PM PDT Station ID: [id number]
== END 2019-12-18 23:59 | disposition home or self-care (01) ==
LOC: DI.WCP 08:52
PROVIDERS: ATTEND Physician Assistant
DX: R93.6 Abnormal findings on diagnostic imaging of limbs (principal); Z48.89 Encounter for other specified surgical aftercare; M86.179 Other acute osteomyelitis, unspecified ankle and foot; L97.526 Non-pressure chronic ulcer of other part of left foot with bone involvement without evidence of necrosis; Z20.828 Contact with and (suspected) exposure to other viral communicable diseases
CPT/HCPCS: 36415; 73630; 86140; U0004

== ENCOUNTER 2019-12-20 06:18 | Day surgery (SDC) | payer MEDICARE ==
--- NOTE | 2019-12-18 13:32 | CONSULTATION NOTE ---
Consultation Report: 64 year old male with history of type 1 Diabetes, poorly controlled and NSTEMI in June 2019. He was seen by cardiology 08/2019 and underwent PCI of his LAD with drug eluting stent. Was to return for follow up with steel pourer helper but has failed to do so. Patient is currently taking aspirin and plavix. He has osteomyelitis of the left 5th metatarsal requiring amputation. Recommend follow up with cardiology for surgical clearance. Patient would need to continue taking aspirin and plavix due to risk of acute thrombosis of drug eluting stent placed in August.
[2019-12-20] MEDS ORDERED: LACTATED RINGERS 1,000 ML IV ONE ×2 (06:26→09:36)
[2019-12-20] MEDS ORDERED: CEFAZOLIN SODIUM IN 0.9 % NACL 2 GM/100 ML BAG IV ONE (06:36)
[2019-12-20] MEDS ORDERED: BACITRACIN ZINC OINT 1 PACKET TOP ONE (07:04)
[2019-12-20] MEDS ORDERED: LIDOCAINE MPF 2%-EPI 1:200000 20 ML VIAL ONE (07:04)
[2019-12-20] MEDS ORDERED: BUPIVACAINE 0.25%-EPI 1:200000 PF 30 ML VIAL ONE (07:04)
[2019-12-20] MEDS ORDERED: BACITRACIN 50,000 UNIT VIAL ONE (07:05)
[2019-12-20] MEDS ORDERED: LIDOCAINE 1%-EPI 1:100000 20 ML MDV ONE (07:14)
--- NOTE | 2019-12-20 07:26 | ANESTHESIA ---
Pre-Anesthesia VS, & Labs - Diagnosis osteomylitis left foot - Procedure amputation of 5th metatarsal, left foot Vital Signs: Temp Pulse Resp BP Pulse Ox 36.1 C L 83 20 138/85 H 99 12/20/19 06:32 12/20/19 06:32 12/20/19 06:32 12/20/19 06:32 12/20/19 06:32 Height: 6 ft 2 in Weight (kg): 107.1 kg Body Mass Index: 30.3 BMI Classification: Obese - NPO >8 hours - Lab Results Current Lab Results: Laboratory Tests 12/20/19 06:43: POC Whole Bld Glucose 79 Home Medications and Allergies Insulin Regular Human [NovoLIN R] 2 - 10 unit SUBQ TIDWM 06/09/19 Tamsulosin [Flomax] 0.4 mg PO DAILY 06/09/19 Insulin NPH Human [Humulin N] 35 unit SUBQ BID 06/10/19 Aspirin 81 mg PO DAILY 12/07/19 Atorvastatin [Lipitor] 40 mg PO DAILY 12/07/19 Carvedilol [Coreg] 25 mg PO DAILY 12/07/19 Clopidogrel [Plavix] 75 mg PO DAILY 12/07/19 Losartan Potassium 50 mg PO DAILY 12/07/19 Metoclopramide [Reglan] 10 mg PO TID 12/07/19 Allergies/Adverse Reactions: Allergies Allergy/AdvReac Type Severity Reaction Status Date / Time No Known Drug Allergies Allergy Verified 12/06/19 14:42 Anes History & Medical History - Anesthetic History Anesthesia Complications: reports: No previous complications - Medical History Cardiovascular: reports: Hypertension, High cholesterol, [place] Pulmonary: reports: None Gastrointestinal: reports: GERD, Other Urinary: reports: Benign prostate hypertrophy Neuro: reports: None Musculoskeletal: reports: Osteoarthritis Endocrine/Autoimmune: reports: Type 1 diabetes, Type 2 diabetes Blood Disorders: reports: None Skin: reports: None Smoking Status: Never smoker - Surgical History General: Appendectomy Orthopedic: Amputation, Other Exam General: Alert Dental: WNL Mouth Opening: Greater than 4 Fingerbreadths Neck Mobility: Limited Mallampati classification: II Thyromental Distance: greater than 6 cm Respiratory: Lungs clear Cardiovascular: Regular rate Plan Anesthesia Type: Other Block (ankle block) Consent for Procedure(s) Verified and Reviewed: Yes Code Status: Attempt Resuscitation ASA classification: 3-Severe systemic disease Is this case an emergency?: No
[2019-12-20] MEDS ORDERED: ONDANSETRON 4 MG/2 ML VIAL IVP ONE (07:35)
[2019-12-20] MEDS ORDERED: PROPOFOL 200 MG/20 ML VIAL IVP ONE (07:35)
[2019-12-20] MEDS ORDERED: BUPIVACAINE 0.5% PF 10 ML VIAL IM ONE (07:35)
[2019-12-20] MEDS ORDERED: LIDOCAINE-MPF 2% 5 ML VIAL IM ONE (07:35)
[2019-12-20] MEDS ORDERED: fentaNYL 100 MCG/2 ML VIAL IVP ONE (07:35)
[2019-12-20] MEDS ORDERED: KETAMINE 500 MG/10 ML VIAL IVP ONE (07:35)
[2019-12-20] MEDS ORDERED: MIDAZOLAM 2 MG/2 ML VIAL IVP ONE (07:35)
[2019-12-20 09:55] VITALS: BP 122/78
--- NOTE | 2019-12-20 09:55 | OPERATIVE REPORT ---
Operative Report - General Procedure Date: 12/20/19 Planned Procedure: Left fifth metatarsal ray amputation Pre-Op Diagnosis: Osteomyelitis left fifth toe and metatarsal associated with full-thickness Procedure Performed: Left fifth metatarsal ray amputation, irrigation debridement of ulcer Left forefoot Post Op Diagnosis: Same as preoperative diagnosis - Procedure Note Primary Surgeon: Thad Diggs M.D. Secondary Surgeon: KISHAN Pratt Anesthesia Provider: Jaz Fernández Anesthesia Technique: Regional block Estimated Blood Loss (mL): 50 Indications: This is a 64-year-old man with a history of a diabetic left forefoot problem. This is a result of a longstanding deformity to the left forefoot, chronic callosity to the fifth metatarsal head, chronic ulceration that led to both soft tissue and bone infection to the fifth metatarsal phalangeal joint region and fifth metatarsal. He had a previous irrigation and debridement of the ulcer by the past 2 weeks, placed on antibiotics as directed by the hospital service. He was seen in our office this week where x-rays confirmed destruction of the proximal phalanx and fifth metatarsal including shaft consistent with osteomyelitis and consistent with previous abnormal MRI scan that had been obtained earlier. I was not involved in his initial care but have assumed his care since our [facility] orthopedist is not here. 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 He also has diabetic neuropathy of his feet. Findings: He has a full-thickness ulcer approximately 3 cm communicating with the metatarsal phalangeal joint of the left fifth toe. The ulcer base is vascular. There was necrotic bone to the distal and midshaft but not proximally. There was a piece of sequestrum at the junction of the proximal and middle thirds of the left fifth metatarsal shaft. Bone and soft tissue specimens were sent for culture both aerobic and anaerobic. There was a small amount of necrotic tissue at the metatarsal phalangeal joint. Complications: None noted - Other Other Information/Narrative: The patient was brought to the operating room table and placed in a supine position. A foot and ankle block was performed by a nurse meat dresser. The left lower extremity was prepped and draped in a sterile manner in the usual fashion. Because of the ulcer, a Betadine prep was used. A padded stockinette was applied to the left lower extremity. A timeout procedure was performed by the entire operating room team and all were in agreement. A rubber bandage was used to exsanguinate the left foot and was wrapped circumferentially 3 times over padding just above the ankle to provide tourniquet control. A racquet incision was made over the left fifth toe and was extended proximally over the left fifth metatarsal shaft in a longitudinal fashion. The ulcer edges were sharply debrided. The toe was divided including collateral ligaments, tendons and capsule and sent to pathology. The fifth metatarsal shaft was debrided with a rondure sending necrotic bone to the lab for culture. A microsagittal saw was used to divide the metatarsal at the proximal one third where there was no sign of abnormal bone, thus, preserving the peroneus brevis attachment. The wound was debrided sharply. There was good vascularity to the tissues. There was no purulent material encountered. The wound was thoroughly irrigated. The tourniquet was released after about 30 minutes. Hemostasis was achieved with electrocautery. The skin was closed with 2-0 nylon. There was a plantar lateral flap from previous ulcer that was incorporated and seemed to close well and seemed to have good vascularity. The incision was irregular because of the ulcer defect and more complicated. A sterile dressing was applied. Bacitracin first, Xeroform and a soft bulky dressing to the left foot and ankle. He received 2 g of Ancef intravenously, had been on Levaquin prior to surgery. He tolerated the procedure well. A physician district administrative assistant was utilized to help with positioning, tissue retraction and wound closure. He most likely will need to return to the operating room in the future. This may be for recurrent infection or deformity correction to the left foot and ankle.
--- NOTE | 2019-12-20 12:54 | ANESTHESIA POST OP EVALUATION ---
Anesthesia Post Eval - Post Anesthesia Eval Vitals: Last Vital Signs Temp 36.1 C L 12/20/19 09:54 Pulse 74 12/20/19 09:54 Resp 14 12/20/19 09:54 BP 122/78 12/20/19 09:54 Pulse Ox 97 12/20/19 09:54 CV Function Including HR & BP: positive: Stable Pain Control: positive: Satisfactory Nausea & Vomiting: positive: Negative Mental Status: positive: Baseline Respiratory Status: Airway Patent Hydration Status: Satisfactory Anesthesia Complications: positive: None
== END 2019-12-20 06:19 | disposition home or self-care (01) ==
LOC: SDS 06:18
PROVIDERS: ATTEND Orthopaedic Surgery
PROC: 0Y6N0ZF Detachment at Left Foot, Partial 5th Ray, Open Approach (ICD-10-PCS; principal; 2019-12-20 07:30)
DX: E13.69 Other specified diabetes mellitus with other specified complication (principal); M86.672 Other chronic osteomyelitis, left ankle and foot; Z79.4 Long term (current) use of insulin; I10 Essential (primary) hypertension; I25.2 Old myocardial infarction; Z79.01 Long term (current) use of anticoagulants; Z79.82 Long term (current) use of aspirin; E13.621 Other specified diabetes mellitus with foot ulcer; L97.528 Non-pressure chronic ulcer of other part of left foot with other specified severity; B96.20 Unspecified Escherichia coli [E. coli] as the cause of diseases classified elsewhere; E13.42 Other specified diabetes mellitus with diabetic polyneuropathy
CPT/HCPCS: 28810; 87070; 87077; 87181; 87205; 88305; 88311; A9270; J0690; J7120

== ENCOUNTER 2020-01-29 07:30 | Outpatient (CLI) | payer MEDICARE ==
--- NOTE | 2020-01-29 16:38 | XRAY Report ---
PROCEDURE: Foot 3 View LT INDICATIONS: LEFT FOOT ULCER TECHNIQUE: 3 views of the foot were acquired. COMPARISON: X-ray foot 12/18/2019 FINDINGS: Bones: No fractures or dislocations. No suspicious bony lesions. There has been interval resection of the fifth digit distal to the very proximalmost portion of the metatarsal base. There is slight i rregularity at the osseous resection point. Soft tissues: No tibiotalar joint effusion. Achilles tendon appears normal. IMPRESSION: Interval fifth digit resection as above. Mild irregularity is noted at the resection site. This could be immediate postsurgical. However, given history of likely osteomyelitis, short interval imaging fo llow-up is recommended. Reviewed by: Lona Chan MD on 01/29/2020 4:36 PM PST Approved by: Lona Chan MD on 01/29/2020 4:36 PM [id number] Station ID: [id number]
== END 2020-01-29 23:59 | disposition home or self-care (01) ==
LOC: DI.WCP 07:30
PROVIDERS: ATTEND Orthopaedic Surgery
DX: L97.526 Non-pressure chronic ulcer of other part of left foot with bone involvement without evidence of necrosis (principal)

== ENCOUNTER 2020-02-05 08:00 | Outpatient (CLI) | payer MEDICARE ==
[2020-02-05 17:50] LABS: HGB - HEMOGLOBIN 13.6 g/dL (14.0-18.0); MEAN CORPUSCULAR HEMOGLOBIN 32.2 pg (27.0-31.0); MEAN CORPUSCULAR HGB CONC 34.7 g/dL (32.0-36.0); MEAN CORPUSCULAR VOLUME 92.9 fL (80.0-94.0); MEAN PLATELET VOLUME 11.2 fL (7.4-11.4); RED BLOOD COUNT 4.22 10^6/uL (4.70-6.10); RED CELL DISTRIBUTION WIDTH 13.5 % (12.0-15.0); WHITE BLOOD COUNT 5.2 x10^3/uL (4.8-10.8)
== END 2020-02-05 23:59 | disposition home or self-care (01) ==
LOC: LAB.WCP 08:00
PROVIDERS: ATTEND Orthopaedic Surgery
DX: M86.179 Other acute osteomyelitis, unspecified ankle and foot (principal)
CPT/HCPCS: 36415; 85027; 86140

== ENCOUNTER 2020-02-09 16:41 | Outpatient (CLI) | payer MEDICARE | END 2020-02-09 16:42 | disposition home or self-care (01) | LOC: COV 16:41 | PROVIDERS: ATTEND Orthopaedic Surgery | DX: Z01.812 Encounter for preprocedural laboratory examination (principal); Z20.828 Contact with and (suspected) exposure to other viral communicable diseases; M67.02 Short Achilles tendon (acquired), left ankle ==

== ENCOUNTER 2020-02-14 07:32 | Day surgery (SDC) | payer MEDICARE ==
[~2020-02-14 07:32] MED LIST: ACETAMINOPHEN 1,000 MG/100 ML 100 ML IV ONE; CELECOXIB 100 MG CAPSULE PO ONE; GABAPENTIN 400 MG CAPSULE ONE
[2020-02-14] MEDS ORDERED: PROPOFOL 1000 MG/100 ML IV ONE (07:33)
[2020-02-14] MEDS ORDERED: ACETAMINOPHEN 1,000 MG/100 ML 100 ML IV ONE (07:33)
[2020-02-14] MEDS ORDERED: LACTATED RINGERS 1,000 ML IV ONE (08:11)
--- NOTE | 2020-02-14 08:33 | ANESTHESIA ---
Pre-Anesthesia VS, & Labs - Diagnosis Left Ankle Achilles Contracture - Procedure Left percutaneous Tendoachilles Lengthening Vital Signs: Temp Pulse Resp BP Pulse Ox 36.2 C L 82 16 173/96 H 98 02/14/20 07:47 02/14/20 07:47 02/14/20 07:47 02/14/20 07:47 02/14/20 07:47 Height: 6 ft 2 in Weight (kg): 115.4 kg Body Mass Index: 32.6 BMI Classification: Obese - NPO >8 hours - Lab Results Current Lab Results: Laboratory Tests 02/14/20 08:08: POC Whole Bld Glucose 282 H Lab results reviewed: Yes Home Medications and Allergies Insulin Regular Human [NovoLIN R] 2 - 10 unit SUBQ TIDWM 06/09/19 Tamsulosin [Flomax] 0.4 mg PO DAILY 06/09/19 Insulin NPH Human [Humulin N] 35 unit SUBQ BID 06/10/19 Aspirin 81 mg PO DAILY 12/07/19 Atorvastatin [Lipitor] 40 mg PO DAILY 12/07/19 Carvedilol [Coreg] 25 mg PO DAILY 12/07/19 Clopidogrel [Plavix] 75 mg PO DAILY 12/07/19 Losartan Potassium 50 mg PO DAILY 12/07/19 Metoclopramide [Reglan] 10 mg PO TID 12/07/19 Allergies/Adverse Reactions: Allergies Allergy/AdvReac Type Severity Reaction Status Date / Time No Known Drug Allergies Allergy Verified 12/06/19 14:42 Anes History & Medical History - Anesthetic History Anesthesia Complications: reports: No previous complications Family history of Anesthesia Complications: Denies Family history of Malignant Hyperthermia: Denies - Medical History Cardiovascular: reports: Hypertension, High cholesterol, [place] (5 months ago while inpatient-placed stent, no chest pain) Pulmonary: reports: None Gastrointestinal: reports: GERD (Controlled), Other (Gastroparesis) Urinary: reports: Benign prostate hypertrophy Neuro: reports: None, Peripheral neuropathy, Other (Motion Sickness) Musculoskeletal: reports: Osteoarthritis Endocrine/Autoimmune: reports: Type 1 diabetes, Type 2 diabetes Blood Disorders: reports: None Skin: reports: None Smoking Status: Never smoker Psychosocial: reports: No issues indicated, Substance abuse (Uses Cannibus) History of Cancer?: No - Surgical History General: Appendectomy Cardiothoracic: Other (Stent) Orthopedic: Amputation, Other Exam General: Alert, Oriented x3, Cooperative, No acute distress Dental: Loose/Frag (Slightly loose upper right), Poor dentition Mouth Openin Fingerbreadth Neck Mobility: Limited Mallampati classification: III Thyromental Distance: 4-6 cm Respiratory: Lungs clear Mental/Cognitive Status: Alert/Oriented X3 Cognitive Status: Within normal limits Plan Anesthesia Type: MAC (Local per surgeon) Consent for Procedure(s) Verified and Reviewed: Yes Code Status: Attempt Resuscitation ASA classification: 4-Incapacitating disease Is this case an emergency?: No (Anesthesia explained, consent signed)
[2020-02-14] MEDS ORDERED: ONDANSETRON 4 MG/2 ML VIAL IVP PRN (08:37)
[2020-02-14] MEDS ORDERED: fentaNYL 100 MCG/2 ML VIAL IVP PRN (08:37)
[2020-02-14] MEDS ORDERED: MORPHINE 2 MG/ML CARPUJECT IVP PRN (08:37)
[2020-02-14] MEDS ORDERED: HYDROmorphone 0.5 MG/0.5 ML SYRINGE IVP PRN (08:37)
[2020-02-14] MEDS ORDERED: NALOXONE 0.4 MG/ML VIAL IVP PRN (08:37)
[2020-02-14] MEDS ORDERED: ePHEDrine 50 MG/ML VIAL IVP PRN (08:37)
[2020-02-14] MEDS ORDERED: ATROPINE ABBOJECT 1 MG/10 ML SYRINGE IVP PRN (08:37)
[2020-02-14] MEDS ORDERED: METOCLOPRAMIDE 10 MG/2 ML VIAL IVP PRN (08:37)
[2020-02-14] MEDS ORDERED: LACTATED RINGERS 1,000 ML IV SCH (09:00)
[2020-02-14] MEDS ORDERED: HYDROcod/ACETAM 10 MG/325 MG TABLET PO PRN (09:04)
[2020-02-14] MEDS ORDERED: HYDROcod/ACETAM 5/325 MG TABLET PO PRN (09:04)
[2020-02-14] MEDS ORDERED: LACTATED RINGERS 600 ML IV ONE (09:07)
--- NOTE | 2020-02-14 09:10 | OPERATIVE REPORT ---
Operative Report - General Procedure Date: 02/14/20 Pre-Op Diagnosis: left tendoachilles contracture Procedure Performed: left triple hemitenotomy achilles tendon lengthening Post Op Diagnosis: same as preoperative - Procedure Note Primary Surgeon: Thad Diggs MD Anesthesia Provider: Nigel Malik MD Anesthesia Technique: Moderate sedation Estimated Blood Loss (mL): 0 Indications: equinus contracture left ankle, history of diabetes with neuropathy and ulceration leading to osteomyelitis and 5th metatarsal ray amputation Findings: left Achilles contracture associated with cavovarus deformity; ulcer healed left forefoot - Other Other Information/Narrative: After satisfactory anesthesia achieved, patient was placed in supine position. Time out procedure was performed and all were in agreement. The left leg had been prepped and draped in sterile manner. A triple hemitenotomy of left achilles tendon was performed with # 11 blade and dorsiflexion applied with correction of equinus contracture. A sterile dressing was applied and a padded short leg fiberglass splint applied with left ankle in neutral dorsiflexion. He tolerated the procedure well.
--- NOTE | 2020-02-14 09:49 | ANESTHESIA POST OP EVALUATION ---
Anesthesia Post Eval - Post Anesthesia Eval Vitals: Last Vital Signs Temp 36.2 C L 02/14/20 09:30 Pulse 70 02/14/20 09:30 Resp 16 02/14/20 09:30 BP 133/77 H 02/14/20 09:30 Pulse Ox 99 02/14/20 09:30 CV Function Including HR & BP: positive: Stable Pain Control: positive: Satisfactory Nausea & Vomiting: positive: Negative Mental Status: positive: Baseline Respiratory Status: Airway Patent Hydration Status: Satisfactory Anesthesia Complications: positive: None (Awake and alert. Taking PO)
[2020-02-14 10:13] VITALS: BP 162/99
== END 2020-02-14 07:33 | disposition home or self-care (01) ==
LOC: SDS 07:32
PROVIDERS: ATTEND Orthopaedic Surgery
DX: M67.02 Short Achilles tendon (acquired), left ankle (principal); E10.42 Type 1 diabetes mellitus with diabetic polyneuropathy; E10.43 Type 1 diabetes mellitus with diabetic autonomic (poly)neuropathy; K31.84 Gastroparesis; E10.39 Type 1 diabetes mellitus with other diabetic ophthalmic complication; I10 Essential (primary) hypertension; E78.00 Pure hypercholesterolemia, unspecified; H40.9 Unspecified glaucoma; N40.0 Benign prostatic hyperplasia without lower urinary tract symptoms; Z89.422 Acquired absence of other left toe(s); Z89.421 Acquired absence of other right toe(s); Z79.82 Long term (current) use of aspirin; Z79.4 Long term (current) use of insulin; Z86.19 Personal history of other infectious and parasitic diseases; I25.2 Old myocardial infarction; Z95.5 Presence of coronary angioplasty implant and graft; Z72.89 Other problems related to lifestyle
CPT/HCPCS: 27606; A9270; J0131; J7120

== ENCOUNTER 2020-05-28 16:24 | Outpatient (CLI) | payer MEDICARE | END 2020-05-28 16:25 | disposition critical access hospital (66) | LOC: EMS 16:24 | PROVIDERS: ATTEND Emergency Medicine | DX: K92.0 Hematemesis (principal); R19.7 Diarrhea, unspecified | CPT/HCPCS: A0425; A0429 ==

== ENCOUNTER 2020-05-28 17:00 | Inpatient (IN) | payer MEDICARE ==
[2020-05-28] MEDS ORDERED: ONDANSETRON 4 MG/2 ML VIAL IVP STA (17:13)
[2020-05-28] MEDS ORDERED: SODIUM CHLORIDE 0.9% 1,000 ML IV STA ×2 (17:13→17:28)
[2020-05-28] MEDS ORDERED: HYDROmorphone 1 MG/ML CARPUJECT IVP STA (17:28)
--- NOTE | 2020-05-28 17:36 | ED Physician Documentation ---
History of Present Illness - Stated complaint Stated Complaint: N/V/D - Chief complaint Chief Complaint: Abd Pain - Additonal information Additional information: 64-year-old diabetic male presents the emergency department with 2 days of uncon trolled nausea and vomiting. He states his belly is sore from vomiting but does not have focal tenderness. He has been unable to check his sugars at home as he lost his glucometer. Sugar here was 525. He states that he has been feeling persistently nauseated and diaphoretic. Denies chest pain or shortness of breath. Pt states that he has reduced the inuslin he was taking over the last 2 days due to vomiting and being unable to keep medications down Review of Systems Constitutional: denies: Fever, Chills Eyes: reports: Reviewed and negative Ears: reports: Reviewed and negative Nose: reports: Reviewed and negative Throat: reports: Reviewed and negative Cardiac: reports: Palpitations. denies: Chest pain / pressure, Pedal edema, Calf pain Respiratory: denies: Dyspnea, Wheezing GI: reports: Abdominal Pain, Nausea, Vomiting. denies: Bloody / black stool : denies: Frequency, Hesitancy Skin: denies: Rash, Lesions Musculoskeletal: denies: Neck pain, Back pain PD PAST MEDICAL HISTORY - Past Medical History Cardiovascular: Hypertension, High cholesterol, [place] (5 months ago while inpatient-placed stent, no chest pain) Respiratory: None Neuro: None, Peripheral neuropathy, Other (Motion Sickness) Endocrine/Autoimmune: Type 1 diabetes, Type 2 diabetes GI: GERD (Controlled), Other (Gastroparesis) : Benign prostate hypertrophy HEENT: Chronic vision loss, Other Psych: Claustrophobia Musculoskeletal: Osteoarthritis Derm: None - Past Surgical History Past Surgical History: Yes General: Appendectomy Ortho: Amputation, Other Cardiovascular: Other (Stent) - Present Medications Home Medications: Ambulatory Orders Medication Instructions Recorded Confirmed Insulin Regular Human [NovoLIN R] 2 - 10 unit SUBQ TIDWM 06/09/19 02/14/20 Tamsulosin [Flomax] 0.4 mg PO DAILY 06/09/19 02/14/20 Insulin NPH Human [Humulin N] 35 unit SUBQ BID 06/10/19 02/14/20 Pantoprazole [Protonix] 40 mg PO QDAC #30 tablet 07/28/19 02/05/20 Senna [Senokot] 8.6 mg PO DAILY PRN #14 tablet 07/28/19 02/14/20 amLODIPine [Norvasc] 5 mg PO DAILY #30 tablet 07/28/19 02/14/20 Aspirin 81 mg PO DAILY 12/07/19 02/14/20 Atorvastatin [Lipitor] 40 mg PO DAILY 12/07/19 02/14/20 Carvedilol [Coreg] 25 mg PO DAILY 12/07/19 02/14/20 Clopidogrel [Plavix] 75 mg PO DAILY 12/07/19 02/14/20 Losartan Potassium 50 mg PO DAILY 12/07/19 02/14/20 Metoclopramide [Reglan] 10 mg PO TID 12/07/19 02/14/20 - Allergies Allergies/Adverse Reactions: Allergies Allergy/AdvReac Type Severity Reaction Status Date / Time No Known Drug Allergies Allergy Verified 12/06/19 14:42 - Social History Does the pt smoke?: Yes Smoking Status: Never smoker Does the pt drink ETOH?: No Does the pt have substance abuse?: Yes - Immunizations Immunizations are current?: Yes - POLST Patient has POLST: No POLST Status: Full Code PD ED PE EXPANDED - General General: Alert, In distress - Cardiac Cardiac: Tachy, Regular Rhythm, Radial strong equal, Pedal strong equal, Cap refill < 2 sec - Respiratory Respiratory: Clear to ausultation shauna. No: Distress, Labored - Abdomen Abdomen: Normal Bowel sounds. No: Tender to palpation - Derm Derm: Normal color, Diaphoretic. No: Rash, Petecchiae, Purpura - Neuro Neuro: Alert and Oriented X 3, CNII-XII intact, Normal gait, Normal speech. No: Confused, Disoriented - GCS Eye Opening: Spontaneous Motor: Obeys Commands Verbal: Oriented Total: 15 Results - Vitals Vitals: Vital Signs - 24 hr 05/28/20 05/28/20 17:05 18:14 Temperature 36.2 C L Heart Rate 111 H 101 H Respiratory 26 H 26 H Rate Blood Pressure 208/113 H O2 Saturation 96 95 Oxygen O2 Source Room air - EKG (time done) 1742 Rate: Rate (enter#) (101) Rhythm: Sinus tachycardia Intervals: Normal CO. No: Prolonged QT (borderline prolonged 493) QRS: Normal Ischemia: Normal ST segments Compare to prior EKG: Old EKG unavailable Computer interpretation: Agree with computer - Labs Labs: Laboratory Tests 05/28/20 05/28/20 05/28/20 18:02 18:02 18:02 WBC 13.9 H RBC 5.51 Hgb 16.9 Hct 51.0 MCV 92.6 MCH 30.7 MCHC 33.1 RDW 14.0 Plt Count 229 MPV 10.4 Neut # (Auto) 12.7 H Lymph # (Auto) 0.4 L [place] # (Auto) 0.7 Eos # (Auto) 0.0 Baso # (Auto) 0.0 Absolute Nucleated RBC 0.00 Nucleated RBC % 0.0 Sodium 133 L Potassium 4.5 Chloride 93 L Carbon Dioxide 15 L Anion Gap 25.0 H BUN 42 H Creatinine 1.7 H Estimated GFR (MDRD) 41 L Glucose 557 H* Lactic Acid 3.6 H* Calcium 9.5 Total Bilirubin 2.6 H AST 45 H ALT 25 Alkaline Phosphatase 83 Troponin I High Sens Total Protein 8.0 Albumin 4.9 Globulin 3.1 Albumin/Globulin Ratio 1.6 Lipase 15 L Serum Ketones MODERATE H 05/28/20 18:02 WBC RBC Hgb Hct MCV MCH MCHC RDW Plt Count MPV Neut # (Auto) Lymph # (Auto) [place] # (Auto) Eos # (Auto) Baso # (Auto) Absolute Nucleated RBC Nucleated RBC % Sodium Potassium Chloride Carbon Dioxide Anion Gap BUN Creatinine Estimated GFR (MDRD) Glucose Lactic Acid Calcium Total Bilirubin AST ALT Alkaline Phosphatase Troponin I High Sens 53.2 H* Total Protein Albumin Globulin Albumin/Globulin Ratio Lipase Serum Ketones PD MEDICAL DECISION MAKING - ED course Complexity details: reviewed results, re-evaluated patient, considered differential, d/w patient ED course: 64-year-old gentleman presents the emergency department with 2 days of uncontrolled nausea and vomiting. Reports that he reduced his dose of insulin because he was unable to keep anything down. Fortunately here he is noted to be in DKA with positive serum ketones. Lactic acid is elevated at 3.6 glucose of 557. His troponin is 53.2. His EKG is nonischemic.. A repeat troponin is pending. We had extreme difficulty obtaining screening labs as well as the IV access therefore anesthesia did come to the bedside to place a central line. With the initiation of a DKA order set once DKA was identified. I presented the patient to Dr. Geller who agreed to write admission order for this patient. His central line is clear for use Departure - Departure Disposition: 66 [facility] DC/Xfer Clinical Impression: DKA (diabetic ketoacidoses) Qualifiers: Diabetes mellitus type: type 1 Diabetes mellitus complication detail: without coma Qualified Code(s): E10.10 - Type 1 diabetes mellitus with ketoacidosis without coma Discharge Date/Time: 05/28/20 19:46
[2020-05-28 18:09] LABS: BASOPHILS % (AUTO) 0.1 %; HGB - HEMOGLOBIN 16.9 g/dL (14.0-18.0); LYMPHOCYTES # (AUTO) 0.4 10^3/uL (1.5-3.5); LYMPHOCYTES % (AUTO) 3.1 %; MEAN CORPUSCULAR HEMOGLOBIN 30.7 pg (27.0-31.0); MEAN CORPUSCULAR HGB CONC 33.1 g/dL (32.0-36.0); MEAN CORPUSCULAR VOLUME 92.6 fL (80.0-94.0); MEAN PLATELET VOLUME 10.4 fL (7.4-11.4); MONOCYTES # (AUTO) 0.7 10^3/uL (0.0-1.0); MONOCYTES % (AUTO) 5.1 %; NEUTROPHILS # (AUTO) 12.7 10^3/uL (1.5-6.6); NEUTROPHILS % (AUTO) 91.4 %; PLT - PLATELET COUNT 229 10^3/uL (130-450); RED BLOOD COUNT 5.51 10^6/uL (4.70-6.10); WHITE BLOOD COUNT 13.9 x10^3/uL (4.8-10.8)
[2020-05-28 18:18] LABS: KETONES, SERUM (ACETEST) MODERATE (NEGATIVE)
[2020-05-28 18:31] LABS: ALBUMIN 4.9 g/dL (3.2-5.5); ALBUMIN/GLOBULIN RATIO 1.6 (1.0-2.2); ALKALINE PHOSPHATASE 83 IU/L (42-121); ALT ALANINE AMINOTRANSFERASE 25 IU/L (10-60); AST ASPARTATE AMINOTRANSFERASE 45 IU/L (10-42); BILIRUBIN,TOTAL 2.6 mg/dL (0.2-1.0); BUN - BLOOD UREA NITROGEN 42 mg/dL (6-20); CALCIUM 9.5 mg/dL (8.5-10.3); CARBON DIOXIDE - CO2 15 mmol/L (21-32); CHLORIDE 93 mmol/L (101-111); CREATININE 1.7 mg/dL (0.6-1.2); GFR - MDRD 41 (>89); LIPASE 15 U/L (22-51); POTASSIUM 4.5 mmol/L (3.5-5.0); SODIUM 133 mmol/L (135-145)
[2020-05-28 18:33] LABS: GLUCOSE 557 mg/dL (70-100)
[2020-05-28] MEDS ORDERED: INSULIN REGULAR HUMAN 100 UNIT/1 ML 10 ML MDV IVP STA (18:36)
[2020-05-28] MEDS ORDERED: INSULIN REGULAR HUMAN 100 UNIT in SODIUM CHLORIDE 0.9% 100ML 99 ML IV STA (18:36)
[2020-05-28] MEDS ORDERED: ONDANSETRON ODT 4 MG TABLET TL PRN (18:49)
[2020-05-28] MEDS ORDERED: ACETAMINOPHEN 325 MG TABLET PO PRN (18:49)
[2020-05-28] MEDS ORDERED: INSULIN REGULAR HUMAN 100 UNIT in SODIUM CHLORIDE 0.9% 100ML 99 ML IV SCH (19:00)
--- NOTE | 2020-05-28 19:25 | ANESTHESIA PROCEDURE NOTE ---
Anesth Central Line Template - Central Line Central Line Preparation: Consent Obtained, Time out completed, Ultrasound used, Sterile prep and drape Central line location: Right IJ Central line type: Triple lumen Central line catheter tip site resides: Superior vena cava (SVC) Central line aftercare: Secured, Placement confirmed, No pneumothorax, No complications, Bundle checklist complete, Pt tolerated well
[2020-05-28 19:32] LABS: VBG PH 7.366 (7.31-7.41)
[2020-05-28 19:33] LABS: VBG BASE EXCESS -8.5 mmol/L (-2 - +2); VBG HCO3 14.7 mmol/L (23-28); VBG OXYGEN SATURATION 86.1 % (60-80); VBG PCO2 26.3 mmHg (41-51); VBG PO2 53.4 mmHg (25-47); VBG TOTAL CO2 15.5 mmol/L (24-29)
--- NOTE | 2020-05-28 20:11 | XRAY Report ---
PROCEDURE: Chest for Line Placement INDICATIONS: Central Line Placed TECHNIQUE: One view of the chest was acquired. COMPARISON: 12/11/2019 FINDINGS: Surgical changes and devices: Right internal jugular central venous catheter with the tip projecting in the lower SVC.. Lungs and pleura: No pleural effusions or pneumothorax. Lungs are clear. Mediastinum: Mediastinal contours appear normal. Heart size is normal. Bones and chest wall: No suspicious bony lesions. Overlying soft tissues appear unremarkable. IMPRESSION: Right internal jugular central venous catheter with the tip projecting in the lower SVC. No pneumothorax. Reviewed by: Duarte Simon MD on 05/28/2020 8:09 PM PST Approved by: Duarte Simon MD on 05/28/2020 8:09 PM PST Station ID: [id number]
--- NOTE | 2020-05-28 20:48 | HISTORY & PHYSICAL EXAMINATION ---
Chief Complaint - Chief Complaint Chief Complaint: nausea/vomiting History of Present Illness - Admitted From Admitted From:: [facility] ED - History Obtained From Records Reviewed: yes History obtained from: patient - History of Present Illness HPI Comment/Other: Patient is a 64-year-old male with medical history significant for diabetes mellitus type 1, coronary artery disease status post PCI with stent, hypertension, hyperlipidemia, diabetic gastroparesis and GERD who presented to the ED with complaint of nausea and vomiting for the past week. Due to his gastroparesis he has been on Reglan daily. 2 weeks ago he decided to stop taking the Reglan daily. 3 to 4 days ago the nausea and vomiting became more significant and he was unable to keep anything down today so he came to the emergency department for evaluation. He was found to have a blood glucose of 557 with an anion gap of 25. There were moderate serum ketones. As a result he was started on an insulin drip and presented for admission for further management. He also had a troponin of 52. At bedside he denies chest pain, dyspnea, abdominal pain, fever or chills. History - Past Medical History Cardiovascular: reports: Hypertension, High cholesterol, [place] Respiratory: reports: None Neuro: reports: None, Peripheral neuropathy, Other Endocrine/Autoimmune: reports: Type 1 diabetes, Type 2 diabetes GI: reports: GERD, Other : reports: Benign prostate hypertrophy HEENT: reports: Chronic vision loss, Other Psych: reports: Claustrophobia Musculoskeletal: reports: Osteoarthritis Derm: reports: None MRSA Hx?: No - Past Surgical History General: reports: Appendectomy Ortho: reports: Amputation, Other Cardiovascular: reports: Other - Family & Social History Family History: Father: Cancer, Sister: Diabetes, Type 1, Brother: Cancer, Diabetes, Type 1 Social History Notes: He smokes marijuana but no tobacco product. He drinks occasionally - POLST Patient has POLST: No POLST Status: Full Code Meds/Allgy - Home Medications Home Medications: Ambulatory Orders Medication Instructions Recorded Confirmed Insulin Regular Human [NovoLIN R] 2 - 10 unit SUBQ TIDWM PRN 06/09/19 05/29/20 Tamsulosin [Flomax] 0.4 mg PO DAILY 06/09/19 05/29/20 Insulin NPH Human [Humulin N] 35 unit SUBQ BID 06/10/19 05/29/20 Pantoprazole [Protonix] 40 mg PO QDAC #30 tablet 07/28/19 05/29/20 amLODIPine [Norvasc] 5 mg PO DAILY #30 tablet 07/28/19 05/29/20 Aspirin 81 mg PO DAILY 12/07/19 05/29/20 Atorvastatin [Lipitor] 40 mg PO DAILY 12/07/19 05/29/20 Carvedilol [Coreg] 25 mg PO DAILY 12/07/19 05/29/20 Losartan Potassium 50 mg PO DAILY 12/07/19 05/29/20 Metoclopramide [Reglan] 10 mg PO TID PRN 12/07/19 05/29/20 Acetaminophen [Acetaminophen Extra 500 mg PO DAILY 05/29/20 05/29/20 Strength] Ascorbic Acid [Vitamin C] 1,000 mg PO DAILY 05/29/20 05/29/20 Cholecalciferol [Vitamin D3] 5,000 units PO DAILY 05/29/20 05/29/20 Melatonin 10 mg PO HS 05/29/20 05/29/20 Ondansetron Odt [Zofran Odt] 4 mg PO TID PRN 05/29/20 05/29/20 Zinc Gluconate [Zinc] 15 mg PO DAILY 05/29/20 05/29/20 diphenhydrAMINE [Benadryl] 25 mg PO DAILY PRN 05/29/20 05/29/20 - Allergies Allergies/Adverse Reactions: Allergies Allergy/AdvReac Type Severity Reaction Status Date / Time No Known Drug Allergies Allergy Verified 12/06/19 14:42 Review of Systems - Constitutional Constitutional: denies: Fatigue, Fever, Chills - Eyes Eyes: denies: Pain, Dipolpia - Ears, Nose & Throat Ears, Nose & Throat: denies: Ear pain, Sore throat - Cardiovascular Cariovascular: denies: Irregular heart rate, Palpitations, Chest pain, Edema, Lightheadedness, Syncope, Exertional dyspnea - Respiratory Respiratory: denies: Cough, Sputum production, Wheezing, SOB at rest, SOB with exertion - Gastrointestinal Gastrointestinal: reports: Nausea, Vomiting. denies: Abdominal pain, Abdominal distention, Constipation, Diarrhea, Coffee grounds emesis, Reflux/heartburn - Genitourinary Genitourinary: denies: Dysuria, Frequency, Urgency - Musculoskeletal Musculoskeletal: denies: Muscle pain, Back pain, Muscle aches, Stiffness, Limited range of motion, Muscle weakness, Joint pain - Integumentary Integumentary: denies: Rash, Pruritis, Lesions, Dryness - Neurological Neurological: denies: General weakness, Focal weakness, Headache, Dizziness - Psychiatric Psychiatric: denies: Depression, Anxiety - Endocrine Endocrine: denies: Polyuria, Polydypsia - Hematologic/Lymphatic Hematologic/Lymphatic: denies: Anemia, Bruising Prior Level of Functionality: Independent of activities of daily living. Exam - Vital Signs Vital Signs: Vital Signs x48h Temp Pulse Pulse Resp BP BP Pulse Ox 05/28/20 19:56 37 C 102 H 11 L 199/100 H 99 05/28/20 19:36 99 22 162/88 H 98 05/28/20 19:13 110 H 217/118 H 05/28/20 18:14 101 H 26 H 95 05/28/20 17:05 36.2 C L 111 H 26 H 208/113 H 96 - Physical Exam General Appearance: positive: Alert, Mild distress Eyes Bilateral: positive: PERRL, EOMI ENT: positive: Dry mucous membranes Neck: positive: No JVD, Trachea midline Respiratory: positive: Chest non-tender, No respiratory distress, Breath sounds nml. negative: Wheezes, Rales, Rhonchi Cardiovascular: positive: No murmur, Tachycardia Abdomen: positive: Non-tender, No organomegaly, Nml bowel sounds, No distention. negative: Guarding, Rebound Back: positive: Nml inspection Skin: positive: Color nml, No rash, Warm, Dry Extremities: positive: Non-tender, Full ROM, Nml appearance, No pedal edema Neurologic/Psychiatric: positive: Oriented x3, Mood/affect nml Conclusion/Plan - Problem List (1) DKA (diabetic ketoacidoses) Conclusion/Plan: Patient started on the DKA protocol. On insulin drip. Patient admitted to the ICU. Qualifiers: Qualified Code(s): E10.10 - Type 1 diabetes mellitus with ketoacidosis without coma (2) KI (acute kidney injury) Conclusion/Plan: Likely prerenal in light of nausea and vomiting. Creatinine was 1.6 with an estimated GFR of 43 Anticipating improvement with IV hydration. We will recheck with morning labs. (3) Gastroparesis diabeticorum Conclusion/Plan: Reglan 5 mg IV every 4 hours as needed ordered. Zofran also ordered as needed for nausea vomiting. (5) BPH (benign prostatic hyperplasia) Conclusion/Plan: Will resume patient's tamsulosin when he is able to tolerate. (6) Hyperlipidemia Conclusion/Plan: Atorvastatin 40 mg p.o. daily (7) Hypertension Conclusion/Plan: On amlodipine, Coreg and Losartan Qualifiers: Hypertension type: essential hypertension Qualified Code(s): I10 - Essential (primary) hypertension (8) Coronary artery disease Conclusion/Plan: Is on Coreg, losartan, atorvastatin, aspirin and Plavix. Patient's troponin was 53. Repeat was 62 then 77. Patient is asymptomatic. We will continue patient's home medications as listed above. - Lab Results Fish Bones: 05/29/20 04:20 05/29/20 04:20 Core Measures - Anticipated LOS I expect patient to be DC'd or transferred within 96 hours.: Yes - DVT/VTE - Prophylaxis VTE/DVT Device ordered at admit?: Yes VTE/DVT Prophylaxis med ordered at admit?: Yes
[2020-05-28] MEDS: SODIUM CHLORIDE 0.9% 1,000 ML IV SCH ×3 (20:53→21:17)
[2020-05-28] MEDS: ONDANSETRON 4 MG/2 ML VIAL IVP PRN (21:00)
[2020-05-28] MEDS: SODIUM CHLORIDE FLUSH 0.9% 10 ML SYRINGE IVP PRN ×7 (21:00→23:38)
[2020-05-28 21:18] LABS: B. PARAPERTUSSIS- RESP PCR PAN NOT DETECTED; B. PERTUSSIS- RESP PCR PANEL NOT DETECTED; C. PNEUMONIAE- RESP PCR PANEL NOT DETECTED; CORONAVIRUS 229E-RESP PCR NOT DETECTED; CORONAVIRUS HKU1-RESP PCR NOT DETECTED; CORONAVIRUS NL63-RESP PCR NOT DETECTED; CORONAVIRUS OC43-RESP PCR NOT DETECTED; HUMAN METAPNEUMOVIRUS NOT DETECTED; INFLUENZA A- RESP PCR PANEL NOT DETECTED; INFLUENZA B - RESP PCR PANEL NOT DETECTED; M. PNEUMONIAE- RESP PCR PANEL NOT DETECTED; PARAINFLUENZA VIRUS 1 NOT DETECTED; PARAINFLUENZA VIRUS 2 NOT DETECTED; PARAINFLUENZA VIRUS 3 NOT DETECTED; PARAINFLUENZA VIRUS 4 NOT DETECTED; RHINOVIRUS/ENTEROVIRUS NOT DETECTED; RSV- RESP PCR PANEL NOT DETECTED; SARS-CoV-2 -RESP PCR PANEL NOT DETECTED
[2020-05-28 21:25] LABS: CALCIUM 8.7 mg/dL (8.5-10.3); CREATININE 1.7 mg/dL (0.6-1.2); POTASSIUM 3.4 mmol/L (3.5-5.0)
[2020-05-28] MEDS ORDERED: POTASSIUM CHLOR 10 MEQ/100 ML 10 MEQ/100 ML BAG IV ONE (22:00)
[2020-05-28] MEDS: METOCLOPRAMIDE 10 MG/2 ML VIAL IVP PRN (22:12)
[2020-05-28 23:03] LABS: BILIRUBIN,URINE NEGATIVE (NEGATIVE); GLUCOSE, URINE (UA) >=1000 mg/dL (NEGATIVE); KETONES,URINE (UA) >=80 mg/dL (NEGATIVE); LEUKOCYTE ESTERASE, URINE NEGATIVE (NEGATIVE); NITRITE,URINE NEGATIVE (NEGATIVE); OCCULT BLOOD,URINE MODERATE (NEGATIVE); PH,URINE 5.5 PH (5.0-7.5); PROTEIN,URINE 100 mg/dL (NEGATIVE); UROBILINOGEN,URINE 0.2 (NORMAL) E.U./dL (NORMAL)
[2020-05-28 23:04] LABS: CLARITY,URINE CLEAR (CLEAR)
[2020-05-28 23:08] LABS: BACTERIA,URINE Rare /HPF (None Seen); MUCUS,URINE Few Strands; RBC,URINE 0-5 /HPF (0-5); SQUAMOUS EPITHELIAL CELL,UR RARE Squamous (<= Few); WBC,URINE 0-3 /HPF (0-3)
[2020-05-29 00:38] LABS: CALCIUM 9.1 mg/dL (8.5-10.3); CREATININE 1.7 mg/dL (0.6-1.2); PHOSPHORUS 2.7 mg/dL (2.5-4.6); POTASSIUM 3.7 mmol/L (3.5-5.0)
[2020-05-29] MEDS: SODIUM CHLORIDE FLUSH 0.9% 10 ML SYRINGE IVP SCH ×5 (01:44→23:49)
[2020-05-29] MEDS: SODIUM CHLORIDE FLUSH 0.9% 10 ML SYRINGE IVP PRN ×8 (01:44→23:54)
[2020-05-29] MEDS: DEXTROSE 5%-0.9% NACL 1,000 ML IV SCH ×4 (03:00→19:36)
[2020-05-29] MEDS: ONDANSETRON 4 MG/2 ML VIAL IVP PRN ×3 (03:50→22:12)
[2020-05-29 04:36] LABS: BASOPHILS % (AUTO) 0.1 %; HCT - HEMATOCRIT 46.6 % (42.0-52.0); LYMPHOCYTES % (AUTO) 5.5 %; MEAN CORPUSCULAR HEMOGLOBIN 30.3 pg (27.0-31.0); MEAN CORPUSCULAR HGB CONC 34.3 g/dL (32.0-36.0); MEAN CORPUSCULAR VOLUME 88.3 fL (80.0-94.0); MEAN PLATELET VOLUME 9.8 fL (7.4-11.4); MONOCYTES % (AUTO) 10.3 %; NEUTROPHILS % (AUTO) 83.7 %; PLT - PLATELET COUNT 246 10^3/uL (130-450); RED BLOOD COUNT 5.28 10^6/uL (4.70-6.10); RED CELL DISTRIBUTION WIDTH 14.2 % (12.0-15.0); VBG BASE EXCESS -1.7 mmol/L (-2 - +2); VBG HCO3 20.5 mmol/L (23-28); VBG OXYGEN SATURATION 86.6 % (60-80); VBG PH 7.468 (7.31-7.41); VBG PO2 47.7 mmHg (25-47); VBG TOTAL CO2 21.4 mmol/L (24-29); WHITE BLOOD COUNT 16.2 x10^3/uL (4.8-10.8)
[2020-05-29 04:43] LABS: ABNORMAL LYMPHS % (MANUAL) 0 %
[2020-05-29 04:47] LABS: BUN - BLOOD UREA NITROGEN 47 mg/dL (6-20); CALCIUM 9.6 mg/dL (8.5-10.3); CARBON DIOXIDE - CO2 22 mmol/L (21-32); CHLORIDE 107 mmol/L (101-111); CREATININE 1.5 mg/dL (0.6-1.2); GFR - MDRD 47 (>89); GLUCOSE 107 mg/dL (70-100); PHOSPHORUS 1.3 mg/dL (2.5-4.6); POTASSIUM 3.3 mmol/L (3.5-5.0); SODIUM 141 mmol/L (135-145)
[2020-05-29 04:57] LABS: KETONES, SERUM (ACETEST) NEGATIVE (NEGATIVE)
[2020-05-29 05:09] LABS: BAND NEUTROPHILS % (MANUAL) 2 %; DIFFERENTIAL COMMENT MANUAL DIFFERENTIAL; LYMPHOCYTES # (MANUAL) 0.6 10^3/uL (1.5-3.5); LYMPHOCYTES % (MANUAL) 4 %; MONOCYTES # (MANUAL) 1.8 10^3/uL (0.0-1.0); NEUTROPHILS # (MANUAL) 13.8 10^3/uL (1.5-6.6); PLATELET ESTIMATE, MANUAL NORMAL (130-450,000) (NORMAL); RBC MORPHOLOGY (MULTIPLE) NORMAL APPEARANCE (NORMAL)
[2020-05-29] MEDS: POTASSIUM CHLOR 20 MEQ/100 ML 20 MEQ/100 ML BAG IV SCH ×2 (05:37→06:44)
[2020-05-29] MEDS: METOCLOPRAMIDE 10 MG/2 ML VIAL IVP PRN ×2 (05:37→13:05)
[2020-05-29] MEDS: PANTOPRAZOLE 40 MG VIAL IVP SCH (06:22)
[2020-05-29] MEDS: INSULIN GLARGINE 300 UNIT/3 ML PEN SUBQ SCH ×2 (07:57→20:43)
[2020-05-29] MEDS: INSULIN ASPART 300 UNIT/3 ML PEN SUBQ SCH ×4 (07:59→20:42)
[2020-05-29] MEDS ORDERED: POTASSIUM PHOSPHATE 21 MMOL in SODIUM CHLORIDE 0.9% 250 ML IV ONE (08:00)
[2020-05-29] MEDS: ENOXAPARIN 40 MG/0.4 ML SYRINGE SUBQ SCH (08:01)
[2020-05-29 08:28] LABS: ESTIMATED AVERAGE GLUCOSE 212 mg/dL (70-100)
[2020-05-29] MEDS ORDERED: amLODIPine 5 MG TABLET PO SCH (09:00)
[2020-05-29] MEDS ORDERED: carvediloL 12.5 MG TABLET PO SCH (09:00)
[2020-05-29] MEDS ORDERED: LACTATED RINGERS 1,000 ML IV ONE (09:02)
[2020-05-29] MEDS: METOPROLOL 5 MG/5 ML VIAL IVP SCH ×4 (09:05→23:48)
[2020-05-29] MEDS: ASPIRIN EC 81 MG TABLET PO SCH (09:54)
[2020-05-29] MEDS: SODIUM CHLORIDE 0.9% 1,000 ML IV SCH ×3 (09:54→19:37)
[2020-05-29] MEDS: TAMSULOSIN 0.4 MG CAPSULE PO SCH (09:54)
--- NOTE | 2020-05-29 10:30 | PROVIDER PROGRESS NOTE ---
Subjective - Prog Note Date Prog Note Date: 05/29/20 Prog Note Time: 10:28 - Subjective Subjective: He is miserable with his nausea and vomiting. Even just keeping ice chips down is a problem. He describes getting dry heaves. Otherwise he is off the insulin drip. His anion gap is closed. His bicarb is normal. We have given him his Lantus. We have given Reglan. Continues to be on D5 and normal saline. Current Medications - Current Medications Current Medications: Active Medications Acetaminophen (Acetaminophen 325 Mg Tablet) 650 mg PO Q4HR PRN PRN Reason: Pain 1 to 4 Aspirin (Aspirin Ec 81 Mg Tablet) 81 mg PO DAILY [facility] Last Admin: 05/29/20 09:54 Dose: Not Given Documented by: Atorvastatin Calcium (Atorvastatin 40 Mg Tablet) 40 mg PO QPM [facility] Enoxaparin Sodium (Enoxaparin 40 Mg/0.4 Ml Syringe) 40 mg SUBQ DAILY [facility] Last Admin: 05/29/20 08:01 Dose: 40 mg Documented by: Sodium Chloride (Normal Saline 0.9%) 1,000 mls @ 125 mls/hr IV .Q8H [facility] Last Admin: 05/29/20 09:54 Dose: Not Given Documented by: Dextrose/Sodium Chloride (D5ns) 1,000 mls @ 125 mls/hr IV .Q8H [facility] Last Admin: 05/29/20 03:03 Dose: Not Given Documented by: Potassium Phosphate 21 mmol/ (Sodium Chloride) 257 mls @ 64 mls/hr IV ONCE ONE; Protocol Stop: 05/29/20 12:00 Insulin Aspart (Insulin Aspart 300 Unit/3 Ml Pen) 3 - 11 unit SUBQ 0800,1200,1700,2100 [facility]; Protocol Last Admin: 05/29/20 07:59 Dose: 3 unit Documented by: Insulin Glargine (Insulin Glargine 300 Unit/3 Ml Pen) 25 unit SUBQ BID [facility] Last Admin: 05/29/20 07:57 Dose: 25 unit Documented by: Metoclopramide HCl (Metoclopramide 10 Mg/2 Ml Vial) 5 mg IVP Q6HR PRN PRN Reason: Nausea / Vomiting Last Admin: 05/29/20 05:37 Dose: 5 mg Documented by: Metoprolol Tartrate (Metoprolol 5 Mg/5 Ml Vial) 5 mg IVP Q6HR [facility] Last Admin: 05/29/20 09:05 Dose: 5 mg Documented by: Ondansetron HCl (Ondansetron Odt 4 Mg Tablet) 4 mg TL Q6HR PRN PRN Reason: Nausea / Vomiting Last Admin: 05/28/20 23:59 Dose: 4 mg Documented by: Ondansetron HCl (Ondansetron 4 Mg/2 Ml Vial) 4 mg IVP Q6HR PRN PRN Reason: Nausea / Vomiting Last Admin: 05/29/20 09:45 Dose: 4 mg Documented by: Oxycodone HCl (Oxycodone 5 Mg Tablet) 5 mg PO Q4HR PRN PRN Reason: Pain 5 to 7 Pantoprazole Sodium (Pantoprazole 40 Mg Vial) 40 mg IVP QDAC [facility] Last Admin: 05/29/20 06:22 Dose: 40 mg Documented by: Sodium Chloride (Sodium Chloride Flush 0.9% 10 Ml Syringe) 10 ml IVP 0100,0900,1700 [facility] Last Admin: 05/29/20 08:00 Dose: 10 ml Documented by: Sodium Chloride (Sodium Chloride Flush 0.9% 10 Ml Syringe) 10 ml IVP PRN PRN PRN Reason: NEEDED PER PROVIDER ORDERS Last Admin: 05/29/20 06:22 Dose: 10 ml Documented by: Sodium Chloride (Sodium Chloride Flush 0.9% 10 Ml Syringe) 20 ml IVP PRN PRN PRN Reason: After Blood Draw Last Admin: 05/29/20 04:24 Dose: 20 ml Documented by: Tamsulosin HCl (Tamsulosin 0.4 Mg Capsule) 0.4 mg PO DAILY [facility] Last Admin: 05/29/20 09:54 Dose: Not Given Documented by: Insulin Regular Human [NovoLIN R] 2 - 10 unit SUBQ TIDWM 06/09/19 Tamsulosin [Flomax] 0.4 mg PO DAILY 06/09/19 Insulin NPH Human [Humulin N] 35 unit SUBQ BID 06/10/19 Aspirin 81 mg PO DAILY 12/07/19 Atorvastatin [Lipitor] 40 mg PO DAILY 12/07/19 Carvedilol [Coreg] 25 mg PO DAILY 12/07/19 Clopidogrel [Plavix] 75 mg PO DAILY 12/07/19 Losartan Potassium 50 mg PO DAILY 12/07/19 Metoclopramide [Reglan] 10 mg PO TID 12/07/19 Objective - Vital Signs/Intake & Output Reviewed Vital Signs: Yes Vital Signs: Vital Signs Temp Pulse Resp BP BP Pulse Ox 05/29/20 10:00 99 14 207/111 H 97 05/29/20 09:05 123/118 H 05/29/20 09:00 107 H 20 213/118 H 90 L 05/29/20 08:00 36.8 C 117 H 21 232/132 H 100 05/29/20 07:51 36.8 C 05/29/20 07:00 101 H 13 151/74 H 97 Intake & Output: Intake & Output 05/26/20 05/27/20 05/28/20 05/29/20 23:59 23:59 23:59 23:59 Intake Total 2133.789 2391.750 Output Total 300 1225 Balance 8730.523 8074.750 - Objective General Appearance: positive: Alert, Moderate distress (Curled up in a ball, nausea is overwhelming, making his blood pressure high) Eyes Bilateral: positive: PERRL, Other (Disheveled white male who looks older th an stated age) ENT: positive: No signs of dehydration Neck: positive: No JVD Respiratory: positive: No respiratory distress. negative: Wheezes, Rales, Rhonchi Cardiovascular: positive: Regular rate & rhythm, Tachycardia. negative: Gallop/S4, Friction rub Abdomen: positive: Non-tender, Nml bowel sounds, No distention. negative: Guarding, Rebound Skin: positive: Warm, Dry Extremities: positive: Full ROM, No pedal edema Neurologic/Psychiatric: positive: Oriented x3, CN's nml (2-12), Motor nml. negative: Sensation nml (Neuropathy) - Lab Results Fish Bones: 05/29/20 04:20 05/29/20 04:20 Other Labs: Lab Results x24hrs 05/29/20 05/29/20 05/29/20 Range/Units 04:20 04:20 04:20 WBC (4.8-10.8) x10^3/uL RBC (4.70-6.10) 10^6/uL Hgb (14.0-18.0) g/dL Hct (42.0-52.0) % MCV (80.0-94.0) fL MCH (27.0-31.0) pg MCHC (32.0-36.0) g/dL RDW (12.0-15.0) % Plt Count (130-450) 10^3/uL MPV (7.4-11.4) fL Neut # (Auto) (1.5-6.6) 10^3/uL Lymph # (Auto) (1.5-3.5) 10^3/uL [place] # (Auto) (0.0-1.0) 10^3/uL Eos # (Auto) (0.0-0.7) 10^3/uL Baso # (Auto) (0.0-0.1) 10^3/uL Absolute Nucleated RBC x10^3/uL Total Counted Band Neuts % (Manual) (0 - 10) % Abnorm Lymph % (Manual) % Nucleated RBC % /100WBC Neutrophils # (Manual) (1.5-6.6) 10^3/uL Lymphocytes # (Manual) (1.5-3.5) 10^3/uL Monocytes # (Manual) (0.0-1.0) 10^3/uL Eosinophils # (Manual) (0-0.7) 10^3/uL Basophils # (Manual) (0-0.1) 10^3/uL Differential Comment Platelet Estimate (NORMAL) RBC Morph Micro Appear (NORMAL) VBG pH 7.468 H (7.31-7.41) VBG pCO2 29.0 L (41-51) mmHg VBG pO2 47.7 H (25-47) mmHg VBG HCO3 20.5 L (23-28) mmol/L VBG Total CO2 21.4 L (24-29) mmol/L VBG O2 Saturation 86.6 H (60-80) % VBG Base Excess -1.7 (-2 - +2) mmol/L Sodium (135-145) mmol/L Potassium (3.5-5.0) mmol/L Chloride (101-111) mmol/L Carbon Dioxide (21-32) mmol/L Anion Gap (6-13) BUN (6-20) mg/dL Creatinine (0.6-1.2) mg/dL Estimated GFR (MDRD) (>89) Glucose (70-100) mg/dL Estimat Average Glucose (70-100) mg/dL Hemoglobin A1c % (4.27-6.07) % Lactic Acid (0.5-2.2) mmol/L Calcium (8.5-10.3) mg/dL Phosphorus (2.5-4.6) mg/dL Magnesium 2.0 (1.7-2.8) mg/dL Total Bilirubin (0.2-1.0) mg/dL AST (10-42) IU/L ALT (10-60) IU/L Alkaline Phosphatase (42-121) IU/L Troponin I High Sens 96.8 H* (2.3-19.7) ng/L Total Protein (6.7-8.2) g/dL Albumin (3.2-5.5) g/dL Globulin (2.1-4.2) g/dL Albumin/Globulin Ratio (1.0-2.2) Lipase (22-51) U/L Urine Color Urine Clarity (CLEAR) Urine pH (5.0-7.5) PH Ur Specific [place] (1.002-1.030) Urine Protein (NEGATIVE) mg/dL Urine Glucose (UA) (NEGATIVE) mg/dL Urine Ketones (NEGATIVE) mg/dL Urine Occult Blood (NEGATIVE) Urine Nitrite (NEGATIVE) Urine Bilirubin (NEGATIVE) Urine Urobilinogen (NORMAL) E.U./dL Ur Leukocyte Esterase (NEGATIVE) Urine RBC (0-5) /HPF Urine WBC (0-3) /HPF Ur Squamous Epith Cells (<= Few) Urine Bacteria (None Seen) /HPF Urine Mucus Ur Microscopic Review Urine Culture Comments Nasal Adenovirus (PCR) Nasal B. parapertussis DNA (PCR) Nasal Coronavir 229E PCR Nasal Coronavir HKU1 PCR Nasal Coronavir NL63 PCR Nasal Coronavir OC43 PCR Nasal Enterovir/Rhinovir PCR Nasal Influenza B PCR Nasal Influenza A PCR Nasal Parainfluen 1 PCR Nasal Parainfluen 2 PCR Nasal Parainfluen 3 PCR Nasal Parainfluen 4 PCR Nasal RSV (PCR) Nasal Screen MRSA (PCR) (NEGATIVE) Nasal B.pertussis DNA PCR Nasal C.pneumoniae (PCR) Nilesh Human Metapneumo PCR Nasal M.pneumoniae (PCR) Nasal SARS-CoV-2 (PCR) Serum Ketones (NEGATIVE) 05/29/20 05/29/20 05/29/20 Range/Units 04:20 04:20 04:20 WBC 16.2 H (4.8-10.8) x10^3/uL RBC 5.28 (4.70-6.10) 10^6/uL Hgb 16.0 (14.0-18.0) g/dL Hct 46.6 (42.0-52.0) % MCV 88.3 (80.0-94.0) fL MCH 30.3 (27.0-31.0) pg MCHC 34.3 (32.0-36.0) g/dL RDW 14.2 (12.0-15.0) % Plt Count 246 (130-450) 10^3/uL MPV 9.8 (7.4-11.4) fL Neut # (Auto) Not Reportable (1.5-6.6) 10^3/uL Lymph # (Auto) Not Reportable (1.5-3.5) 10^3/uL [place] # (Auto) Not Reportable (0.0-1.0) 10^3/uL Eos # (Auto) Not Reportable (0.0-0.7) 10^3/uL Baso # (Auto) Not Reportable (0.0-0.1) 10^3/uL Absolute Nucleated RBC Not Reportable x10^3/uL Total Counted 100 Band Neuts % (Manual) 2 (0 - 10) % Abnorm Lymph % (Manual) 0 % Nucleated RBC % Not Reportable /100WBC Neutrophils # (Manual) 13.8 H (1.5-6.6) 10^3/uL Lymphocytes # (Manual) 0.6 L (1.5-3.5) 10^3/uL Monocytes # (Manual) 1.8 H (0.0-1.0) 10^3/uL Eosinophils # (Manual) 0.0 (0-0.7) 10^3/uL Basophils # (Manual) 0.0 (0-0.1) 10^3/uL Differential Comment MANUAL DIFFERENTIAL Platelet Estimate NORMAL (130-450,000) (NORMAL) RBC Morph Micro Appear NORMAL APPEARANCE (NORMAL) VBG pH (7.31-7.41) VBG pCO2 (41-51) mmHg VBG pO2 (25-47) mmHg VBG HCO3 (23-28) mmol/L VBG Total CO2 (24-29) mmol/L VBG O2 Saturation (60-80) % VBG Base Excess (-2 - +2) mmol/L Sodium 141 (135-145) mmol/L Potassium 3.3 L (3.5-5.0) mmol/L Chloride 107 (101-111) mmol/L Carbon Dioxide 22 (21-32) mmol/L Anion Gap 12.0 (6-13) BUN 47 H (6-20) mg/dL Creatinine 1.5 H (0.6-1.2) mg/dL Estimated GFR (MDRD) 47 L (>89) Glucose 107 H (70-100) mg/dL Estimat Average Glucose 212 H (70-100) mg/dL Hemoglobin A1c % 9.0 H (4.27-6.07) % Lactic Acid (0.5-2.2) mmol/L Calcium 9.6 (8.5-10.3) mg/dL Phosphorus 1.3 L (2.5-4.6) mg/dL Magnesium (1.7-2.8) mg/dL Total Bilirubin (0.2-1.0) mg/dL AST (10-42) IU/L ALT (10-60) IU/L Alkaline Phosphatase (42-121) IU/L Troponin I High Sens (2.3-19.7) ng/L Total Protein (6.7-8.2) g/dL Albumin (3.2-5.5) g/dL Globulin (2.1-4.2) g/dL Albumin/Globulin Ratio (1.0-2.2) Lipase (22-51) U/L Urine Color Urine Clarity (CLEAR) Urine pH (5.0-7.5) PH Ur Specific [place] (1.002-1.030) Urine Protein (NEGATIVE) mg/dL Urine Glucose (UA) (NEGATIVE) mg/dL Urine Ketones (NEGATIVE) mg/dL Urine Occult Blood (NEGATIVE) Urine Nitrite (NEGATIVE) Urine Bilirubin (NEGATIVE) Urine Urobilinogen (NORMAL) E.U./dL Ur Leukocyte Esterase (NEGATIVE) Urine RBC (0-5) /HPF Urine WBC (0-3) /HPF Ur Squamous Epith Cells (<= Few) Urine Bacteria (None Seen) /HPF Urine Mucus Ur Microscopic Review Urine Culture Comments Nasal Adenovirus (PCR) Nasal B. parapertussis DNA (PCR) Nasal Coronavir 229E PCR Nasal Coronavir HKU1 PCR Nasal Coronavir NL63 PCR Nasal Coronavir OC43 PCR Nasal Enterovir/Rhinovir PCR Nasal Influenza B PCR Nasal Influenza A PCR Nasal Parainfluen 1 PCR Nasal Parainfluen 2 PCR Nasal Parainfluen 3 PCR Nasal Parainfluen 4 PCR Nasal RSV (PCR) Nasal Screen MRSA (PCR) (NEGATIVE) Nasal B.pertussis DNA PCR Nasal C.pneumoniae (PCR) Nilesh Human Metapneumo PCR Nasal M.pneumoniae (PCR) Nasal SARS-CoV-2 (PCR) Serum Ketones NEGATIVE (NEGATIVE) 05/29/20 05/28/20 05/28/20 Range/Units 01:43 23:53 23:35 WBC (4.8-10.8) x10^3/uL RBC (4.70-6.10) 10^6/uL Hgb (14.0-18.0) g/dL Hct (42.0-52.0) % MCV (80.0-94.0) fL MCH (27.0-31.0) pg MCHC (32.0-36.0) g/dL RDW (12.0-15.0) % Plt Count (130-450) 10^3/uL MPV (7.4-11.4) fL Neut # (Auto) (1.5-6.6) 10^3/uL Lymph # (Auto) (1.5-3.5) 10^3/uL [place] # (Auto) (0.0-1.0) 10^3/uL Eos # (Auto) (0.0-0.7) 10^3/uL Baso # (Auto) (0.0-0.1) 10^3/uL Absolute Nucleated RBC x10^3/uL Total Counted Band Neuts % (Manual) (0 - 10) % Abnorm Lymph % (Manual) % Nucleated RBC % /100WBC Neutrophils # (Manual) (1.5-6.6) 10^3/uL Lymphocytes # (Manual) (1.5-3.5) 10^3/uL Monocytes # (Manual) (0.0-1.0) 10^3/uL Eosinophils # (Manual) (0-0.7) 10^3/uL Basophils # (Manual) (0-0.1) 10^3/uL Differential Comment Platelet Estimate (NORMAL) RBC Morph Micro Appear (NORMAL) VBG pH (7.31-7.41) VBG pCO2 (41-51) mmHg VBG pO2 (25-47) mmHg VBG HCO3 (23-28) mmol/L VBG Total CO2 (24-29) mmol/L VBG O2 Saturation (60-80) % VBG Base Excess (-2 - +2) mmol/L Sodium 139 (135-145) mmol/L Potassium 3.7 3.8 (3.5-5.0) mmol/L Chloride 105 (101-111) mmol/L Carbon Dioxide 22 (21-32) mmol/L Anion Gap 12.0 (6-13) BUN 51 H (6-20) mg/dL Creatinine 1.7 H (0.6-1.2) mg/dL Estimated GFR (MDRD) 41 L (>89) Glucose 320 H (70-100) mg/dL Estimat Average Glucose (70-100) mg/dL Hemoglobin A1c % (4.27-6.07) % Lactic Acid (0.5-2.2) mmol/L Calcium 9.1 (8.5-10.3) mg/dL Phosphorus 1.5 L 2.7 (2.5-4.6) mg/dL Magnesium (1.7-2.8) mg/dL Total Bilirubin (0.2-1.0) mg/dL AST (10-42) IU/L ALT (10-60) IU/L Alkaline Phosphatase (42-121) IU/L Troponin I High Sens (2.3-19.7) ng/L Total Protein (6.7-8.2) g/dL Albumin (3.2-5.5) g/dL Globulin (2.1-4.2) g/dL Albumin/Globulin Ratio (1.0-2.2) Lipase (22-51) U/L Urine Color Urine Clarity (CLEAR) Urine pH (5.0-7.5) PH Ur Specific [place] (1.002-1.030) Urine Protein (NEGATIVE) mg/dL Urine Glucose (UA) (NEGATIVE) mg/dL Urine Ketones (NEGATIVE) mg/dL Urine Occult Blood (NEGATIVE) Urine Nitrite (NEGATIVE) Urine Bilirubin (NEGATIVE) Urine Urobilinogen (NORMAL) E.U./dL Ur Leukocyte Esterase (NEGATIVE) Urine RBC (0-5) /HPF Urine WBC (0-3) /HPF Ur Squamous Epith Cells (<= Few) Urine Bacteria (None Seen) /HPF Urine Mucus Ur Microscopic Review Urine Culture Comments Nasal Adenovirus (PCR) Nasal B. parapertussis DNA (PCR) Nasal Coronavir 229E PCR Nasal Coronavir HKU1 PCR Nasal Coronavir NL63 PCR Nasal Coronavir OC43 PCR Nasal Enterovir/Rhinovir PCR Nasal Influenza B PCR Nasal Influenza A PCR Nasal Parainfluen 1 PCR Nasal Parainfluen 2 PCR Nasal Parainfluen 3 PCR Nasal Parainfluen 4 PCR Nasal RSV (PCR) Nasal Screen MRSA (PCR) (NEGATIVE) Nasal B.pertussis DNA PCR Nasal C.pneumoniae (PCR) Nilesh Human Metapneumo PCR Nasal M.pneumoniae (PCR) Nasal SARS-CoV-2 (PCR) Serum Ketones (NEGATIVE) 05/28/20 05/28/20 05/28/20 Range/Units 22:25 22:05 22:05 WBC (4.8-10.8) x10^3/uL RBC (4.70-6.10) 10^6/uL Hgb (14.0-18.0) g/dL Hct (42.0-52.0) % MCV (80.0-94.0) fL MCH (27.0-31.0) pg MCHC (32.0-36.0) g/dL RDW (12.0-15.0) % Plt Count (130-450) 10^3/uL MPV (7.4-11.4) fL Neut # (Auto) (1.5-6.6) 10^3/uL Lymph # (Auto) (1.5-3.5) 10^3/uL [place] # (Auto) (0.0-1.0) 10^3/uL Eos # (Auto) (0.0-0.7) 10^3/uL Baso # (Auto) (0.0-0.1) 10^3/uL Absolute Nucleated RBC x10^3/uL Total Counted Band Neuts % (Manual) (0 - 10) % Abnorm Lymph % (Manual) % Nucleated RBC % /100WBC Neutrophils # (Manual) (1.5-6.6) 10^3/uL Lymphocytes # (Manual) (1.5-3.5) 10^3/uL Monocytes # (Manual) (0.0-1.0) 10^3/uL Eosinophils # (Manual) (0-0.7) 10^3/uL Basophils # (Manual) (0-0.1) 10^3/uL Differential Comment Platelet Estimate (NORMAL) RBC Morph Micro Appear (NORMAL) VBG pH (7.31-7.41) VBG pCO2 (41-51) mmHg VBG pO2 (25-47) mmHg VBG HCO3 (23-28) mmol/L VBG Total CO2 (24-29) mmol/L VBG O2 Saturation (60-80) % VBG Base Excess (-2 - +2) mmol/L Sodium (135-145) mmol/L Potassium Cancelled (3.5-5.0) mmol/L Chloride (101-111) mmol/L Carbon Dioxide (21-32) mmol/L Anion Gap (6-13) BUN (6-20) mg/dL Creatinine (0.6-1.2) mg/dL Estimated GFR (MDRD) (>89) Glucose (70-100) mg/dL Estimat Average Glucose (70-100) mg/dL Hemoglobin A1c % (4.27-6.07) % Lactic Acid (0.5-2.2) mmol/L Calcium (8.5-10.3) mg/dL Phosphorus (2.5-4.6) mg/dL Magnesium 2.2 (1.7-2.8) mg/dL Total Bilirubin (0.2-1.0) mg/dL AST (10-42) IU/L ALT (10-60) IU/L Alkaline Phosphatase (42-121) IU/L Troponin I High Sens (2.3-19.7) ng/L Total Protein (6.7-8.2) g/dL Albumin (3.2-5.5) g/dL Globulin (2.1-4.2) g/dL Albumin/Globulin Ratio (1.0-2.2) Lipase (22-51) U/L Urine Color YELLOW Urine Clarity CLEAR (CLEAR) Urine pH 5.5 (5.0-7.5) PH Ur Specific [place] 1.025 (1.002-1.030) Urine Protein 100 H (NEGATIVE) mg/dL Urine Glucose (UA) >=1000 H (NEGATIVE) mg/dL Urine Ketones >=80 H (NEGATIVE) mg/dL Urine Occult Blood MODERATE H (NEGATIVE) Urine Nitrite NEGATIVE (NEGATIVE) Urine Bilirubin NEGATIVE (NEGATIVE) Urine Urobilinogen 0.2 (NORMAL) (NORMAL) E.U./dL Ur Leukocyte Esterase NEGATIVE (NEGATIVE) Urine RBC 0-5 (0-5) /HPF Urine WBC 0-3 (0-3) /HPF Ur Squamous Epith Cells RARE Squamous (<= Few) Urine Bacteria Rare (None Seen) /HPF Urine Mucus Few Strands Ur Microscopic Review INDICATED Urine Culture Comments NOT INDICATED Nasal Adenovirus (PCR) Nasal B. parapertussis DNA (PCR) Nasal Coronavir 229E PCR Nasal Coronavir HKU1 PCR Nasal Coronavir NL63 PCR Nasal Coronavir OC43 PCR Nasal Enterovir/Rhinovir PCR Nasal Influenza B PCR Nasal Influenza A PCR Nasal Parainfluen 1 PCR Nasal Parainfluen 2 PCR Nasal Parainfluen 3 PCR Nasal Parainfluen 4 PCR Nasal RSV (PCR) Nasal Screen MRSA (PCR) (NEGATIVE) Nasal B.pertussis DNA PCR Nasal C.pneumoniae (PCR) Nilesh Human Metapneumo PCR Nasal M.pneumoniae (PCR) Nasal SARS-CoV-2 (PCR) Serum Ketones (NEGATIVE) 05/28/20 05/28/20 05/28/20 Range/Units 22:05 22:05 21:05 WBC (4.8-10.8) x10^3/uL RBC (4.70-6.10) 10^6/uL Hgb (14.0-18.0) g/dL Hct (42.0-52.0) % MCV (80.0-94.0) fL MCH (27.0-31.0) pg MCHC (32.0-36.0) g/dL RDW (12.0-15.0) % Plt Count (130-450) 10^3/uL MPV (7.4-11.4) fL Neut # (Auto) (1.5-6.6) 10^3/uL Lymph # (Auto) (1.5-3.5) 10^3/uL [place] # (Auto) (0.0-1.0) 10^3/uL Eos # (Auto) (0.0-0.7) 10^3/uL Baso # (Auto) (0.0-0.1) 10^3/uL Absolute Nucleated RBC x10^3/uL Total Counted Band Neuts % (Manual) (0 - 10) % Abnorm Lymph % (Manual) % Nucleated RBC % /100WBC Neutrophils # (Manual) (1.5-6.6) 10^3/uL Lymphocytes # (Manual) (1.5-3.5) 10^3/uL Monocytes # (Manual) (0.0-1.0) 10^3/uL Eosinophils # (Manual) (0-0.7) 10^3/uL Basophils # (Manual) (0-0.1) 10^3/uL Differential Comment Platelet Estimate (NORMAL) RBC Morph Micro Appear (NORMAL) VBG pH (7.31-7.41) VBG pCO2 (41-51) mmHg VBG pO2 (25-47) mmHg VBG HCO3 (23-28) mmol/L VBG Total CO2 (24-29) mmol/L VBG O2 Saturation (60-80) % VBG Base Excess (-2 - +2) mmol/L Sodium (135-145) mmol/L Potassium (3.5-5.0) mmol/L Chloride (101-111) mmol/L Carbon Dioxide (21-32) mmol/L Anion Gap (6-13) BUN (6-20) mg/dL Creatinine (0.6-1.2) mg/dL Estimated GFR (MDRD) (>89) Glucose 385 H (70-100) mg/dL Estimat Average Glucose (70-100) mg/dL Hemoglobin A1c % (4.27-6.07) % Lactic Acid (0.5-2.2) mmol/L Calcium (8.5-10.3) mg/dL Phosphorus 2.5 (2.5-4.6) mg/dL Magnesium (1.7-2.8) mg/dL Total Bilirubin (0.2-1.0) mg/dL AST (10-42) IU/L ALT (10-60) IU/L Alkaline Phosphatase (42-121) IU/L Troponin I High Sens 77.4 H* (2.3-19.7) ng/L Total Protein (6.7-8.2) g/dL Albumin (3.2-5.5) g/dL Globulin (2.1-4.2) g/dL Albumin/Globulin Ratio (1.0-2.2) Lipase (22-51) U/L Urine Color Urine Clarity (CLEAR) Urine pH (5.0-7.5) PH Ur Specific [place] (1.002-1.030) Urine Protein (NEGATIVE) mg/dL Urine Glucose (UA) (NEGATIVE) mg/dL Urine Ketones (NEGATIVE) mg/dL Urine Occult Blood (NEGATIVE) Urine Nitrite (NEGATIVE) Urine Bilirubin (NEGATIVE) Urine Urobilinogen (NORMAL) E.U./dL Ur Leukocyte Esterase (NEGATIVE) Urine RBC (0-5) /HPF Urine WBC (0-3) /HPF Ur Squamous Epith Cells (<= Few) Urine Bacteria (None Seen) /HPF Urine Mucus Ur Microscopic Review Urine Culture Comments Nasal Adenovirus (PCR) Nasal B. parapertussis DNA (PCR) Nasal Coronavir 229E PCR Nasal Coronavir HKU1 PCR Nasal Coronavir NL63 PCR Nasal Coronavir OC43 PCR Nasal Enterovir/Rhinovir PCR Nasal Influenza B PCR Nasal Influenza A PCR Nasal Parainfluen 1 PCR Nasal Parainfluen 2 PCR Nasal Parainfluen 3 PCR Nasal Parainfluen 4 PCR Nasal RSV (PCR) Nasal Screen MRSA (PCR) (NEGATIVE) Nasal B.pertussis DNA PCR Nasal C.pneumoniae (PCR) Nilesh Human Metapneumo PCR Nasal M.pneumoniae (PCR) Nasal SARS-CoV-2 (PCR) Serum Ketones (NEGATIVE) 05/28/20 05/28/20 05/28/20 Range/Units 21:04 20:12 19:55 WBC (4.8-10.8) x10^3/uL RBC (4.70-6.10) 10^6/uL Hgb (14.0-18.0) g/dL Hct (42.0-52.0) % MCV (80.0-94.0) fL MCH (27.0-31.0) pg MCHC (32.0-36.0) g/dL RDW (12.0-15.0) % Plt Count (130-450) 10^3/uL MPV (7.4-11.4) fL Neut # (Auto) (1.5-6.6) 10^3/uL Lymph # (Auto) (1.5-3.5) 10^3/uL [place] # (Auto) (0.0-1.0) 10^3/uL Eos # (Auto) (0.0-0.7) 10^3/uL Baso # (Auto) (0.0-0.1) 10^3/uL Absolute Nucleated RBC x10^3/uL Total Counted Band Neuts % (Manual) (0 - 10) % Abnorm Lymph % (Manual) % Nucleated RBC % /100WBC Neutrophils # (Manual) (1.5-6.6) 10^3/uL Lymphocytes # (Manual) (1.5-3.5) 10^3/uL Monocytes # (Manual) (0.0-1.0) 10^3/uL Eosinophils # (Manual) (0-0.7) 10^3/uL Basophils # (Manual) (0-0.1) 10^3/uL Differential Comment Platelet Estimate (NORMAL) RBC Morph Micro Appear (NORMAL) VBG pH (7.31-7.41) VBG pCO2 (41-51) mmHg VBG pO2 (25-47) mmHg VBG HCO3 (23-28) mmol/L VBG Total CO2 (24-29) mmol/L VBG O2 Saturation (60-80) % VBG Base Excess (-2 - +2) mmol/L Sodium 139 (135-145) mmol/L Potassium 3.4 L (3.5-5.0) mmol/L Chloride 102 (101-111) mmol/L Carbon Dioxide 18 L (21-32) mmol/L Anion Gap 19.0 H (6-13) BUN 45 H (6-20) mg/dL Creatinine 1.7 H (0.6-1.2) mg/dL Estimated GFR (MDRD) 41 L (>89) Glucose 434 H 505 H* (70-100) mg/dL Estimat Average Glucose (70-100) mg/dL Hemoglobin A1c % (4.27-6.07) % Lactic Acid (0.5-2.2) mmol/L Calcium 8.7 (8.5-10.3) mg/dL Phosphorus (2.5-4.6) mg/dL Magnesium 2.0 (1.7-2.8) mg/dL Total Bilirubin (0.2-1.0) mg/dL AST (10-42) IU/L ALT (10-60) IU/L Alkaline Phosphatase (42-121) IU/L Troponin I High Sens (2.3-19.7) ng/L Total Protein (6.7-8.2) g/dL Albumin (3.2-5.5) g/dL Globulin (2.1-4.2) g/dL Albumin/Globulin Ratio (1.0-2.2) Lipase (22-51) U/L Urine Color Urine Clarity (CLEAR) Urine pH (5.0-7.5) PH Ur Specific [place] (1.002-1.030) Urine Protein (NEGATIVE) mg/dL Urine Glucose (UA) (NEGATIVE) mg/dL Urine Ketones (NEGATIVE) mg/dL Urine Occult Blood (NEGATIVE) Urine Nitrite (NEGATIVE) Urine Bilirubin (NEGATIVE) Urine Urobilinogen (NORMAL) E.U./dL Ur Leukocyte Esterase (NEGATIVE) Urine RBC (0-5) /HPF Urine WBC (0-3) /HPF Ur Squamous Epith Cells (<= Few) Urine Bacteria (None Seen) /HPF Urine Mucus Ur Microscopic Review Urine Culture Comments Nasal Adenovirus (PCR) Nasal B. parapertussis DNA (PCR) Nasal Coronavir 229E PCR Nasal Coronavir HKU1 PCR Nasal Coronavir NL63 PCR Nasal Coronavir OC43 PCR Nasal Enterovir/Rhinovir PCR Nasal Influenza B PCR Nasal Influenza A PCR Nasal Parainfluen 1 PCR Nasal Parainfluen 2 PCR Nasal Parainfluen 3 PCR Nasal Parainfluen 4 PCR Nasal RSV (PCR) Nasal Screen MRSA (PCR) NEGATIVE (NEGATIVE) Nasal B.pertussis DNA PCR Nasal C.pneumoniae (PCR) Nilesh Human Metapneumo PCR Nasal M.pneumoniae (PCR) Nasal SARS-CoV-2 (PCR) Serum Ketones (NEGATIVE) 05/28/20 05/28/20 05/28/20 Range/Units 19:38 19:20 19:20 WBC (4.8-10.8) x10^3/uL RBC (4.70-6.10) 10^6/uL Hgb (14.0-18.0) g/dL Hct (42.0-52.0) % MCV (80.0-94.0) fL MCH (27.0-31.0) pg MCHC (32.0-36.0) g/dL RDW (12.0-15.0) % Plt Count (130-450) 10^3/uL MPV (7.4-11.4) fL Neut # (Auto) (1.5-6.6) 10^3/uL Lymph # (Auto) (1.5-3.5) 10^3/uL [place] # (Auto) (0.0-1.0) 10^3/uL Eos # (Auto) (0.0-0.7) 10^3/uL Baso # (Auto) (0.0-0.1) 10^3/uL Absolute Nucleated RBC x10^3/uL Total Counted Band Neuts % (Manual) (0 - 10) % Abnorm Lymph % (Manual) % Nucleated RBC % /100WBC Neutrophils # (Manual) (1.5-6.6) 10^3/uL Lymphocytes # (Manual) (1.5-3.5) 10^3/uL Monocytes # (Manual) (0.0-1.0) 10^3/uL Eosinophils # (Manual) (0-0.7) 10^3/uL Basophils # (Manual) (0-0.1) 10^3/uL Differential Comment Platelet Estimate (NORMAL) RBC Morph Micro Appear (NORMAL) VBG pH 7.366 (7.31-7.41) VBG pCO2 26.3 L (41-51) mmHg VBG pO2 53.4 H (25-47) mmHg VBG HCO3 14.7 L (23-28) mmol/L VBG Total CO2 15.5 L (24-29) mmol/L VBG O2 Saturation 86.1 H (60-80) % VBG Base Excess -8.5 L (-2 - +2) mmol/L Sodium (135-145) mmol/L Potassium (3.5-5.0) mmol/L Chloride (101-111) mmol/L Carbon Dioxide (21-32) mmol/L Anion Gap (6-13) BUN (6-20) mg/dL Creatinine (0.6-1.2) mg/dL Estimated GFR (MDRD) (>89) Glucose (70-100) mg/dL Estimat Average Glucose (70-100) mg/dL Hemoglobin A1c % (4.27-6.07) % Lactic Acid (0.5-2.2) mmol/L Calcium (8.5-10.3) mg/dL Phosphorus (2.5-4.6) mg/dL Magnesium (1.7-2.8) mg/dL Total Bilirubin (0.2-1.0) mg/dL AST (10-42) IU/L ALT (10-60) IU/L Alkaline Phosphatase (42-121) IU/L Troponin I High Sens 62.2 H* (2.3-19.7) ng/L Total Protein (6.7-8.2) g/dL Albumin (3.2-5.5) g/dL Globulin (2.1-4.2) g/dL Albumin/Globulin Ratio (1.0-2.2) Lipase (22-51) U/L Urine Color Urine Clarity (CLEAR) Urine pH (5.0-7.5) PH Ur Specific [place] (1.002-1.030) Urine Protein (NEGATIVE) mg/dL Urine Glucose (UA) (NEGATIVE) mg/dL Urine Ketones (NEGATIVE) mg/dL Urine Occult Blood (NEGATIVE) Urine Nitrite (NEGATIVE) Urine Bilirubin (NEGATIVE) Urine Urobilinogen (NORMAL) E.U./dL Ur Leukocyte Esterase (NEGATIVE) Urine RBC (0-5) /HPF Urine WBC (0-3) /HPF Ur Squamous Epith Cells (<= Few) Urine Bacteria (None Seen) /HPF Urine Mucus Ur Microscopic Review Urine Culture Comments Nasal Adenovirus (PCR) NOT DETECTED Nasal B. parapertussis DNA (PCR) NOT DETECTED Nasal Coronavir 229E PCR NOT DETECTED Nasal Coronavir HKU1 PCR NOT DETECTED Nasal Coronavir NL63 PCR NOT DETECTED Nasal Coronavir OC43 PCR NOT DETECTED Nasal Enterovir/Rhinovir PCR NOT DETECTED Nasal Influenza B PCR NOT DETECTED Nasal Influenza A PCR NOT DETECTED Nasal Parainfluen 1 PCR NOT DETECTED Nasal Parainfluen 2 PCR NOT DETECTED Nasal Parainfluen 3 PCR NOT DETECTED Nasal Parainfluen 4 PCR NOT DETECTED Nasal RSV (PCR) NOT DETECTED Nasal Screen MRSA (PCR) (NEGATIVE) Nasal B.pertussis DNA PCR NOT DETECTED Nasal C.pneumoniae (PCR) NOT DETECTED Nilesh Human Metapneumo PCR NOT DETECTED Nasal M.pneumoniae (PCR) NOT DETECTED Nasal SARS-CoV-2 (PCR) NOT DETECTED Serum Ketones (NEGATIVE) 05/28/20 05/28/2005/28/21 Range/Units 18:02 18:02 18:02 WBC (4.8-10.8) x10^3/uL RBC (4.70-6.10) 10^6/uL Hgb (14.0-18.0) g/dL Hct (42.0-52.0) % MCV (80.0-94.0) fL MCH (27.0-31.0) pg MCHC (32.0-36.0) g/dL RDW (12.0-15.0) % Plt Count (130-450) 10^3/uL MPV (7.4-11.4) fL Neut # (Auto) (1.5-6.6) 10^3/uL Lymph # (Auto) (1.5-3.5) 10^3/uL [place] # (Auto) (0.0-1.0) 10^3/uL Eos # (Auto) (0.0-0.7) 10^3/uL Baso # (Auto) (0.0-0.1) 10^3/uL Absolute Nucleated RBC x10^3/uL Total Counted Band Neuts % (Manual) (0 - 10) % Abnorm Lymph % (Manual) % Nucleated RBC % /100WBC Neutrophils # (Manual) (1.5-6.6) 10^3/uL Lymphocytes # (Manual) (1.5-3.5) 10^3/uL Monocytes # (Manual) (0.0-1.0) 10^3/uL Eosinophils # (Manual) (0-0.7) 10^3/uL Basophils # (Manual) (0-0.1) 10^3/uL Differential Comment Platelet Estimate (NORMAL) RBC Morph Micro Appear (NORMAL) VBG pH (7.31-7.41) VBG pCO2 (41-51) mmHg VBG pO2 (25-47) mmHg VBG HCO3 (23-28) mmol/L VBG Total CO2 (24-29) mmol/L VBG O2 Saturation (60-80) % VBG Base Excess (-2 - +2) mmol/L Sodium 133 L (135-145) mmol/L Potassium 4.5 (3.5-5.0) mmol/L Chloride 93 L (101-111) mmol/L Carbon Dioxide 15 L (21-32) mmol/L Anion Gap 25.0 H (6-13) BUN 42 H (6-20) mg/dL Creatinine 1.7 H (0.6-1.2) mg/dL Estimated GFR (MDRD) 41 L (>89) Glucose 557 H* (70-100) mg/dL Estimat Average Glucose (70-100) mg/dL Hemoglobin A1c % (4.27-6.07) % Lactic Acid 3.6 H* (0.5-2.2) mmol/L Calcium 9.5 (8.5-10.3) mg/dL Phosphorus (2.5-4.6) mg/dL Magnesium (1.7-2.8) mg/dL Total Bilirubin 2.6 H (0.2-1.0) mg/dL AST 45 H (10-42) IU/L ALT 25 (10-60) IU/L Alkaline Phosphatase 83 (42-121) IU/L Troponin I High Sens 53.2 H* (2.3-19.7) ng/L Total Protein 8.0 (6.7-8.2) g/dL Albumin 4.9 (3.2-5.5) g/dL Globulin 3.1 (2.1-4.2) g/dL Albumin/Globulin Ratio 1.6 (1.0-2.2) Lipase 15 L (22-51) U/L Urine Color Urine Clarity (CLEAR) Urine pH (5.0-7.5) PH Ur Specific [place] (1.002-1.030) Urine Protein (NEGATIVE) mg/dL Urine Glucose (UA) (NEGATIVE) mg/dL Urine Ketones (NEGATIVE) mg/dL Urine Occult Blood (NEGATIVE) Urine Nitrite (NEGATIVE) Urine Bilirubin (NEGATIVE) Urine Urobilinogen (NORMAL) E.U./dL Ur Leukocyte Esterase (NEGATIVE) Urine RBC (0-5) /HPF Urine WBC (0-3) /HPF Ur Squamous Epith Cells (<= Few) Urine Bacteria (None Seen) /HPF Urine Mucus Ur Microscopic Review Urine Culture Comments Nasal Adenovirus (PCR) Nasal B. parapertussis DNA (PCR) Nasal Coronavir 229E PCR Nasal Coronavir HKU1 PCR Nasal Coronavir NL63 PCR Nasal Coronavir OC43 PCR Nasal Enterovir/Rhinovir PCR Nasal Influenza B PCR Nasal Influenza A PCR Nasal Parainfluen 1 PCR Nasal Parainfluen 2 PCR Nasal Parainfluen 3 PCR Nasal Parainfluen 4 PCR Nasal RSV (PCR) Nasal Screen MRSA (PCR) (NEGATIVE) Nasal B.pertussis DNA PCR Nasal C.pneumoniae (PCR) Nilesh Human Metapneumo PCR Nasal M.pneumoniae (PCR) Nasal SARS-CoV-2 (PCR) Serum Ketones MODERATE H (NEGATIVE) 05/28/20 Range/Units 18:02 WBC 13.9 H (4.8-10.8) x10^3/uL RBC 5.51 (4.70-6.10) 10^6/uL Hgb 16.9 (14.0-18.0) g/dL Hct 51.0 (42.0-52.0) % MCV 92.6 (80.0-94.0) fL MCH 30.7 (27.0-31.0) pg MCHC 33.1 (32.0-36.0) g/dL RDW 14.0 (12.0-15.0) % Plt Count 229 (130-450) 10^3/uL MPV 10.4 (7.4-11.4) fL Neut # (Auto) 12.7 H (1.5-6.6) 10^3/uL Lymph # (Auto) 0.4 L (1.5-3.5) 10^3/uL [place] # (Auto) 0.7 (0.0-1.0) 10^3/uL Eos # (Auto) 0.0 (0.0-0.7) 10^3/uL Baso # (Auto) 0.0 (0.0-0.1) 10^3/uL Absolute Nucleated RBC 0.00 x10^3/uL Total Counted Band Neuts % (Manual) (0 - 10) % Abnorm Lymph % (Manual) % Nucleated RBC % 0.0 /100WBC Neutrophils # (Manual) (1.5-6.6) 10^3/uL Lymphocytes # (Manual) (1.5-3.5) 10^3/uL Monocytes # (Manual) (0.0-1.0) 10^3/uL Eosinophils # (Manual) (0-0.7) 10^3/uL Basophils # (Manual) (0-0.1) 10^3/uL Differential Comment Platelet Estimate (NORMAL) RBC Morph Micro Appear (NORMAL) VBG pH (7.31-7.41) VBG pCO2 (41-51) mmHg VBG pO2 (25-47) mmHg VBG HCO3 (23-28) mmol/L VBG Total CO2 (24-29) mmol/L VBG O2 Saturation (60-80) % VBG Base Excess (-2 - +2) mmol/L Sodium (135-145) mmol/L Potassium (3.5-5.0) mmol/L Chloride (101-111) mmol/L Carbon Dioxide (21-32) mmol/L Anion Gap (6-13) BUN (6-20) mg/dL Creatinine (0.6-1.2) mg/dL Estimated GFR (MDRD) (>89) Glucose (70-100) mg/dL Estimat Average Glucose (70-100) mg/dL Hemoglobin A1c % (4.27-6.07) % Lactic Acid (0.5-2.2) mmol/L Calcium (8.5-10.3) mg/dL Phosphorus (2.5-4.6) mg/dL Magnesium (1.7-2.8) mg/dL Total Bilirubin (0.2-1.0) mg/dL AST (10-42) IU/L ALT (10-60) IU/L Alkaline Phosphatase (42-121) IU/L Troponin I High Sens (2.3-19.7) ng/L Total Protein (6.7-8.2) g/dL Albumin (3.2-5.5) g/dL Globulin (2.1-4.2) g/dL Albumin/Globulin Ratio (1.0-2.2) Lipase (22-51) U/L Urine Color Urine Clarity (CLEAR) Urine pH (5.0-7.5) PH Ur Specific [place] (1.002-1.030) Urine Protein (NEGATIVE) mg/dL Urine Glucose (UA) (NEGATIVE) mg/dL Urine Ketones (NEGATIVE) mg/dL Urine Occult Blood (NEGATIVE) Urine Nitrite (NEGATIVE) Urine Bilirubin (NEGATIVE) Urine Urobilinogen (NORMAL) E.U./dL Ur Leukocyte Esterase (NEGATIVE) Urine RBC (0-5) /HPF Urine WBC (0-3) /HPF Ur Squamous Epith Cells (<= Few) Urine Bacteria (None Seen) /HPF Urine Mucus Ur Microscopic Review Urine Culture Comments Nasal Adenovirus (PCR) Nasal B. parapertussis DNA (PCR) Nasal Coronavir 229E PCR Nasal Coronavir HKU1 PCR Nasal Coronavir NL63 PCR Nasal Coronavir OC43 PCR Nasal Enterovir/Rhinovir PCR Nasal Influenza B PCR Nasal Influenza A PCR Nasal Parainfluen 1 PCR Nasal Parainfluen 2 PCR Nasal Parainfluen 3 PCR Nasal Parainfluen 4 PCR Nasal RSV (PCR) Nasal Screen MRSA (PCR) (NEGATIVE) Nasal B.pertussis DNA PCR Nasal C.pneumoniae (PCR) Nilesh Human Metapneumo PCR Nasal M.pneumoniae (PCR) Nasal SARS-CoV-2 (PCR) Serum Ketones (NEGATIVE) Assessment/Plan - Problem List (1) DKA (diabetic ketoacidoses) Impression: Patient started on the DKA protocol. Insulin drip is now be discontinued after a few hours. Once he is no longer needing close follow-up, he can leave ICU to go to [facility]. But for now keep in ICU. Qualifiers: Diabetes mellitus type: type 1 Diabetes mellitus complication detail: without coma Qualified Code(s): E10.10 - Type 1 diabetes mellitus with ketoacidosis without coma (2) KI (acute kidney injury) Conclusion/Plan: Likely prerenal in light of nausea and vomiting. Baseline creatinine is 1.1. He came in at 1.7 and is 1.5 this morning.He is slowly improving. Continue to monitor on a daily basis. (3) Gastroparesis diabeticorum Conclusion/Plan: Reglan 5 mg IV every 4 hours as needed ordered. Zofran also ordered as needed for nausea vomiting. Plan: Add Compazine IV as well (5) BPH (benign prostatic hyperplasia) Conclusion/Plan: Will resume patient's tamsulosin when he is able to tolerate. (6) Hyperlipidemia Conclusion/Plan: Atorvastatin 40 mg p.o. daily When able to take p.o. (7) Hypertension Conclusion/Plan: On amlodipine, Coreg and Losartan But he cannot keep his pills down. I have switched him over to Lopressor 5 mg IV every 6. We will also give enalapril 1.25 every 6. Qualifiers: Hypertension type: essential hypertension Qualified Code(s): I10 - Essential (primary) hypertension (8) Coronary artery disease Conclusion/Plan: Is on Coreg, losartan, atorvastatin, aspirin and Plavix. Patient's troponin was 53. Repeat was 62 then 77 then 93. Patient is asymptomatic. We will continue patient's home medications as listed above. Plan: check EKG and continue trending troponin until a downward trend. Qualifiers: Qualified Code(s): E10.10 - Type 1 diabetes mellitus with ketoacidosis without coma
[2020-05-29] MEDS: hydrALAZINE INJ 20 MG/ML VIAL IVP PRN ×2 (11:06→20:37)
--- NOTE | 2020-05-29 15:52 | PHARMACY PROGRESS NOTE ---
- Best Possible Medication History Admit Date and Time: 05/28/20 1849 Processed by: Pharmacy Medication History completed: Yes Patient Interview: Completed (Interview completed by Lizzie 05/29) Secondary Source(s): Insurance records As the person ultimately responsible for medication therapy, providers are able to order a medication from an existing home medication list in [facility] via the "Reconcile Routine" prior to Confirmation of that medication by academic support director. Such practice is discouraged except when the physician, in their clinical judgment, deems that a medical need exists for a medication without regard to previous use.
[2020-05-29] MEDS: PROCHLORPERAZINE 10 MG/2 ML VIAL IVP PRN ×2 (16:07→23:54)
[2020-05-29] MEDS: ATORVASTATIN 40 MG TABLET PO SCH (20:31)
[2020-05-29] MEDS: oxyCODONE 5 MG TABLET PO PRN (23:53)
[2020-05-30] MEDS: DEXTROSE 5%-0.9% NACL 1,000 ML IV SCH ×2 (03:00→13:00)
[2020-05-30] MEDS: SODIUM CHLORIDE FLUSH 0.9% 10 ML SYRINGE IVP PRN ×8 (03:05→18:54)
[2020-05-30] MEDS: METOCLOPRAMIDE 10 MG/2 ML VIAL IVP PRN (03:05)
[2020-05-30] MEDS: oxyCODONE 5 MG TABLET PO PRN ×2 (04:44→23:02)
[2020-05-30] MEDS: ONDANSETRON 4 MG/2 ML VIAL IVP PRN ×3 (04:44→22:07)
[2020-05-30 05:03] LABS: CALCIUM 8.7 mg/dL (8.5-10.3); CREATININE 1.1 mg/dL (0.6-1.2); POTASSIUM 3.3 mmol/L (3.5-5.0)
[2020-05-30] MEDS: PANTOPRAZOLE 40 MG VIAL IVP SCH (06:42)
[2020-05-30] MEDS: METOPROLOL 5 MG/5 ML VIAL IVP SCH ×3 (06:42→17:58)
[2020-05-30] MEDS: INSULIN GLARGINE 300 UNIT/3 ML PEN SUBQ SCH ×2 (09:00→20:53)
[2020-05-30] MEDS: POTASSIUM CHLOR 20 MEQ/100 ML 20 MEQ/100 ML BAG IV SCH ×4 (09:00→19:45)
[2020-05-30] MEDS: INSULIN ASPART 300 UNIT/3 ML PEN SUBQ SCH ×4 (09:00→20:52)
[2020-05-30] MEDS: TAMSULOSIN 0.4 MG CAPSULE PO SCH (09:01)
[2020-05-30] MEDS: ASPIRIN EC 81 MG TABLET PO SCH (09:02)
[2020-05-30] MEDS: ENOXAPARIN 40 MG/0.4 ML SYRINGE SUBQ SCH (09:13)
[2020-05-30] MEDS: hydrALAZINE INJ 20 MG/ML VIAL IVP PRN ×2 (09:15→20:57)
[2020-05-30] MEDS: PROCHLORPERAZINE 10 MG/2 ML VIAL IVP PRN ×2 (09:25→18:50)
--- NOTE | 2020-05-30 11:12 | PROVIDER PROGRESS NOTE ---
Subjective - Prog Note Date Prog Note Date: 05/30/20 Prog Note Time: 11:10 - Subjective Subjective: The intensity, severity, and frequency of his nausea and vomiting has abated considerably. But he still will have dry heaves come out of nowhere. Not want ing to walk in his room very much because he still feels too weak and tired. Feels like his legs are little rubbery. He shared with social work that he has lost his glucometer, strips, and medicines. But is one of the reasons he was hyperglycemic and went into DKA. He is not happy that we talked to his daughter. His daughter lets us know that he smokes quite a bit of cannabis. She is always letting him know that cannabis can lead to cyclical vomiting. He feels that she nags him too much and does not want her to share with us Current Medications - Current Medications Current Medications: Active Medications Acetaminophen (Acetaminophen 325 Mg Tablet) 650 mg PO Q4HR PRN PRN Reason: Pain 1 to 4 Aspirin (Aspirin Ec 81 Mg Tablet) 81 mg PO DAILY [facility] Last Admin: 05/30/20 09:02 Dose: 81 mg Documented by: Atorvastatin Calcium (Atorvastatin 40 Mg Tablet) 40 mg PO QPM [facility] Last Admin: 05/29/20 20:31 Dose: 40 mg Documented by: Calcium Carbonate/Glycine (Calcium Carbonate Chew 500 Mg Tablet) 500 mg PO TID [facility] Enoxaparin Sodium (Enoxaparin 40 Mg/0.4 Ml Syringe) 40 mg SUBQ DAILY [facility] Last Admin: 05/30/20 09:13 Dose: 40 mg Documented by: Hydralazine HCl (Hydralazine Inj 20 Mg/Ml Vial) 10 mg IVP TID PRN PRN Reason: Hypertensive Emergency Last Admin: 05/30/20 09:15 Dose: 10 mg Documented by: Sodium Chloride (Normal Saline 0.9%) 1,000 mls @ 125 mls/hr IV .Q8H [facility] Last Infusion: 05/30/20 08:00 Dose: Infused Documented by: Dextrose/Sodium Chloride (D5ns) 1,000 mls @ 125 mls/hr IV .Q8H [facility] Last Infusion: 05/30/20 09:00 Dose: 0 mls/hr Documented by: Insulin Aspart (Insulin Aspart 300 Unit/3 Ml Pen) 3 - 11 unit SUBQ 0800,1200,1700,2100 [facility]; Protocol Last Admin: 05/30/20 09:00 Dose: 7 unit Documented by: Insulin Glargine (Insulin Glargine 300 Unit/3 Ml Pen) 25 unit SUBQ BID [facility] Last Admin: 05/30/20 09:00 Dose: 25 unit Documented by: Metoclopramide HCl (Metoclopramide 10 Mg/2 Ml Vial) 5 mg IVP Q6HR PRN PRN Reason: Nausea / Vomiting Last Admin: 05/30/20 03:05 Dose: 5 mg Documented by: Metoprolol Tartrate (Metoprolol 5 Mg/5 Ml Vial) 5 mg IVP Q6HR [facility] Last Admin: 05/30/20 06:42 Dose: 5 mg Documented by: Ondansetron HCl (Ondansetron Odt 4 Mg Tablet) 4 mg TL Q6HR PRN PRN Reason: Nausea / Vomiting Last Admin: 05/28/20 23:59 Dose: 4 mg Documented by: Ondansetron HCl (Ondansetron 4 Mg/2 Ml Vial) 4 mg IVP Q6HR PRN PRN Reason: Nausea / Vomiting Last Admin: 05/30/20 04:44 Dose: 4 mg Documented by: Oxycodone HCl (Oxycodone 5 Mg Tablet) 5 mg PO Q4HR PRN PRN Reason: Pain 5 to 7 Last Admin: 05/30/20 04:44 Dose: 5 mg Documented by: Pantoprazole Sodium (Pantoprazole 40 Mg Vial) 40 mg IVP QDAC [facility] Last Admin: 05/30/20 06:42 Dose: 40 mg Documented by: Prochlorperazine Edisylate (Prochlorperazine 10 Mg/2 Ml Vial) 10 mg IVP Q6HR PRN PRN Reason: Nausea / Vomiting Last Admin: 05/30/20 09:25 Dose: 10 mg Documented by: Sodium Chloride (Sodium Chloride Flush 0.9% 10 Ml Syringe) 10 ml IVP 0100,0900,1700 [facility] Last Admin: 05/29/20 23:49 Dose: 10 ml Documented by: Sodium Chloride (Sodium Chloride Flush 0.9% 10 Ml Syringe) 10 ml IVP PRN PRN PRN Reason: NEEDED PER PROVIDER ORDERS Last Admin: 05/30/20 06:43 Dose: 10 ml Documented by: Sodium Chloride (Sodium Chloride Flush 0.9% 10 Ml Syringe) 20 ml IVP PRN PRN PRN Reason: After Blood Draw Last Admin: 05/30/20 04:31 Dose: 20 ml Documented by: Tamsulosin HCl (Tamsulosin 0.4 Mg Capsule) 0.4 mg PO DAILY [facility] Last Admin: 05/30/20 09:01 Dose: 0.4 mg Documented by: Insulin Regular Human [NovoLIN R] 2 - 10 unit SUBQ TIDWM PRN 06/09/19 Tamsulosin [Flomax] 0.4 mg PO DAILY 06/09/19 Insulin NPH Human [Humulin N] 35 unit SUBQ BID 06/10/19 Aspirin 81 mg PO DAILY 12/07/19 Atorvastatin [Lipitor] 40 mg PO DAILY 12/07/19 Carvedilol [Coreg] 25 mg PO DAILY 12/07/19 Losartan Potassium 50 mg PO DAILY 12/07/19 Metoclopramide [Reglan] 10 mg PO TID PRN 12/07/19 Acetaminophen [Acetaminophen Extra Strength] 500 mg PO DAILY 05/29/20 Ascorbic Acid [Vitamin C] 1,000 mg PO DAILY 05/29/20 Cholecalciferol [Vitamin D3] 5,000 units PO DAILY 05/29/20 Melatonin 10 mg PO HS 05/29/20 Ondansetron Odt [Zofran Odt] 4 mg PO TID PRN 05/29/20 Zinc Gluconate [Zinc] 15 mg PO DAILY 05/29/20 diphenhydrAMINE [Benadryl] 25 mg PO DAILY PRN 05/29/20 Objective - Vital Signs/Intake & Output Reviewed Vital Signs: Yes Vital Signs: Vital Signs Temp Pulse Resp BP BP Pulse Ox 05/30/20 10:00 109 H 18 136/82 H 99 05/30/20 09:45 136/82 H 05/30/20 09:15 221/115 H 05/30/20 09:00 97 12 221/115 H 98 05/30/20 08:00 36.4 C L 92 15 217/114 H 99 Intake & Output: Intake & Output 05/27/20 05/28/20 05/29/20 05/30/20 23:59 23:59 23:59 23:59 Intake Total 2133.789 5148.750 2510.417 Output Total 300 3400 1100 Balance 3748.997 5028.750 1410.417 - Objective General Appearance: positive: No acute distress, Alert, Other (Yesterday he was curled up in a ball on his side, today he is sitting up on the side of the bed. Meeting my gaze, has a normal speech pattern and is very lucid.) Eyes Bilateral: positive: PERRL ENT: positive: No signs of dehydration Neck: positive: No JVD. negative: Stiff neck Respiratory: positive: Chest non-tender. negative: Wheezes, Rales, Rhonchi Cardiovascular: positive: Regular rate & rhythm. negative: Gallop/S4, Friction rub Abdomen: positive: Non-tender, No organomegaly, Nml bowel sounds, No distention Skin: positive: Warm, Dry Extremities: positive: Full ROM Neurologic/Psychiatric: positive: Oriented x3, CN's nml (2-12), Motor nml - Lab Results Fish Bones: 05/29/20 04:20 05/30/20 04:32 Other Labs: Lab Results x24hrs 05/30/20 Range/Units 04:32 Sodium 139 (135-145) mmol/L Potassium 3.3 L (3.5-5.0) mmol/L Chloride 105 (101-111) mmol/L Carbon Dioxide 24 (21-32) mmol/L Anion Gap 10.0 (6-13) BUN 28 H (6-20) mg/dL Creatinine 1.1 (0.6-1.2) mg/dL Estimated GFR (MDRD) 67 L (>89) Glucose 278 H (70-100) mg/dL Calcium 8.7 (8.5-10.3) mg/dL Assessment/Plan - Problem List (1) DKA (diabetic ketoacidoses) Impression: He was admitted his DKA. Started on the DKA protocol with an insulin drip. Overnight his glucose dropped so that he was able to come off the drip starting the morning of May 29. He is continued to have severe nausea and vomiting from gastroparesis. That is gradually improving and this morning he continues to have intermittent less frequent and less severe dry heaves. Interested in starting to eat some food but really not interested in eating a lot. Asked for things such as yogurt. I spoke to nutrition services. They say they are very familiar with him. They will work with him to let him have what he needs within a low-carb diet. He has some hypokalemia this am, on ICU replacement protocol. Plan: Already transitioned to his home Lantus regimen Continue sliding scale Advance his diet as tolerated Once he is able to keep food down can safely be discharged to home I will [facility] (2) KI (acute kidney injury) resolved. Conclusion/Plan: Likely prerenal in light of nausea and vomiting. Baseline creatinine is 1.1. He came in at 1.7>> 1.5>>1.1 this morning. Continue to monitor on a daily basis. (3) Gastroparesis diabeticorum Conclusion/Plan: Reglan 5 mg IV every 4 hours as needed ordered. Zofran also ordered as needed for nausea vomiting. Compazine IV as well Plan: No new orders. (5) BPH (benign prostatic hyperplasia) Conclusion/Plan: Will resume patient's tamsulosin when he is able to tolerate. (6) Hyperlipidemia Conclusion/Plan: Atorvastatin 40 mg p.o. daily When able to take p.o. (7) Hypertension Conclusion/Plan: On amlodipine, Coreg and Losartan But he cannot keep his pills down. Yestereday, I switched him over to Lopressor 5 mg IV every 6. I also gave enalapril 1.25 every 6. I did add hydralazine as well. He is dubious about keeping his meds down so I will keep him IV today as well. Qualifiers: Hypertension type: essential hypertension Qualified Code(s): I10 - Essential (primary) hypertension (8) Coronary artery disease Conclusion/Plan: Is on Coreg, losartan, atorvastatin, aspirin and Plavix. Patient's troponin was 53. Repeat was 62>>77>>93>>74 yesteerday am. No further trending now that he is on the downslope. EKG yesterday was without change. No acute STTW changes. Patient is asymptomatic. We will continue patient's home medications as listed above. Qualifiers: Qualified Code(s): E10.10 - Type 1 diabetes mellitus with ketoacidosis without coma Qualifiers: Qualified Code(s): E10.10 - Type 1 diabetes mellitus with ketoacidosis without coma
[2020-05-30] MEDS ORDERED: diltiaZEM INJ 5 MG/ML VIAL IVP ONE ×3 (15:58→22:18)
[2020-05-30] MEDS: CALCIUM CARBONATE CHEW 500 MG TABLET PO SCH ×2 (16:00→20:56)
[2020-05-30] MEDS: SODIUM CHLORIDE 0.9% 1,000 ML IV SCH ×3 (16:55→19:27)
[2020-05-30] MEDS: SODIUM CHLORIDE FLUSH 0.9% 10 ML SYRINGE IVP SCH (17:06)
[2020-05-30 17:07] LABS: CALCIUM 8.3 mg/dL (8.5-10.3); CREATININE 1.1 mg/dL (0.6-1.2); MAGNESIUM 1.8 mg/dL (1.7-2.8); POTASSIUM 3.3 mmol/L (3.5-5.0)
[2020-05-30] MEDS ORDERED: PROCAINAMIDE 100 MG/1 ML 10 ML MDV IV ONE (18:03)
[2020-05-30] MEDS ORDERED: POTASSIUM CHLORIDE 20 MEQ/15 ML UDC PO SCH (19:00)
[2020-05-30] MEDS ORDERED: PROCAINAMIDE 1,000 MG in SODIUM CHLORIDE 0.9% 240 ML IV SCH (19:00)
[2020-05-30] MEDS: ATORVASTATIN 40 MG TABLET PO SCH (20:56)
[2020-05-31] MEDS: METOPROLOL 5 MG/5 ML VIAL IVP SCH ×4 (00:10→18:01)
[2020-05-31] MEDS: DEXTROSE 5%-0.9% NACL 1,000 ML IV SCH (00:12)
[2020-05-31] MEDS: PROCHLORPERAZINE 10 MG/2 ML VIAL IVP PRN ×4 (01:34→20:54)
[2020-05-31] MEDS: ONDANSETRON 4 MG/2 ML VIAL IVP PRN ×3 (03:23→17:58)
[2020-05-31] MEDS: oxyCODONE 5 MG TABLET PO PRN (04:51)
[2020-05-31] MEDS: SODIUM CHLORIDE FLUSH 0.9% 10 ML SYRINGE IVP SCH ×3 (04:51→17:13)
[2020-05-31] MEDS: PANTOPRAZOLE 40 MG VIAL IVP SCH (06:58)
[2020-05-31] MEDS ORDERED: diltiaZEM INJ 125 MG in DEXTROSE 5% 100 ML IV SCH (07:00)
[2020-05-31] MEDS ORDERED: AMIODARONE 150 MG/100 ML 100 ML IV ONE (08:00)
[2020-05-31] MEDS ORDERED: AMIODARONE 360 MG/200 ML 200 ML IV ONE (08:10)
[2020-05-31 08:58] LABS: CALCIUM 7.8 mg/dL (8.5-10.3); CREATININE 1.1 mg/dL (0.6-1.2); PHOSPHORUS 2.3 mg/dL (2.5-4.6); POTASSIUM 3.5 mmol/L (3.5-5.0)
[2020-05-31] MEDS ORDERED: D5NS W/20 MEQ KCL 1,000 ML IV SCH (09:00)
[2020-05-31] MEDS: ASPIRIN EC 81 MG TABLET PO SCH (09:06)
[2020-05-31] MEDS: TAMSULOSIN 0.4 MG CAPSULE PO SCH (09:07)
[2020-05-31] MEDS: INSULIN ASPART 300 UNIT/3 ML PEN SUBQ SCH ×3 (09:10→16:53)
[2020-05-31] MEDS: INSULIN GLARGINE 300 UNIT/3 ML PEN SUBQ SCH ×2 (09:10→21:00)
[2020-05-31] MEDS: ENOXAPARIN 40 MG/0.4 ML SYRINGE SUBQ SCH (09:10)
[2020-05-31] MEDS: POTASSIUM CHLOR 20 MEQ/100 ML 20 MEQ/100 ML BAG IV SCH ×2 (09:45→10:50)
--- NOTE | 2020-05-31 12:28 | PROVIDER PROGRESS NOTE ---
Subjective - Prog Note Date Prog Note Date: 05/31/20 Prog Note Time: 12:26 - Subjective Subjective: At about 315 or 330 yesterday afternoon I was evaluating the patient with the RN. In the midst of the evaluation he went into sudden atrial fibrillation with RVR. Rates went up as high as 150-160. The patient himself was asymptomatic. He denied palpitations, chest pain, shortness of breath. His main complaint then as it had been before was nausea. He has just not been able to eat very much in spite of being off the insulin drip and back on his regular insulin regimen regimen. We have kept him on D5 worrying about hypoglycemia. But he is now getting hyper per glycemic today. Yesterday he was to 80, today he is 400 this morning. The treatment for the atrial fibrillation was potassium supplementation. Diltiazem 10 mg IV push. Then diltiazem 15 mg IV push. He is already on metoprolol IV. I did a Procan 1 g over 1 hour using the [place] protocol. None of this had a response. The table inspector started him on a diltiazem drip this morning. Since the patient is less than 24 hours of atrial fibrillation and we know the exact moment he started, I have opted to try amiodarone loading. The patient denies any chest pain, palpitations, shortness of breath. He denies diaphoresis, same abdominal pain/nausea. Current Medications - Current Medications Current Medications: Active Medications Generic Name Dose Route Start Last Admin Trade Name Freq PRN Reason Stop Dose Admin Acetaminophen 650 mg 05/28/20 18:49 Acetaminophen 325 Mg Tablet PO Q4HR PRN Pain 1 to 4 Aspirin 81 mg 05/29/20 09:00 05/31/20 09:06 Aspirin Ec 81 Mg Tablet PO 81 mg DAILY NATHANIEL Administration Atorvastatin Calcium 40 mg 05/29/20 21:00 05/30/20 20:56 Atorvastatin 40 Mg Tablet PO 40 mg QPM NATHANIEL Administration Calcium Carbonate/Glycine 500 mg 05/30/20 14:00 05/30/20 20:56 Calcium Carbonate Chew 500 Mg Tablet PO 500 mg TID NATHANIEL Administration Enoxaparin Sodium 40 mg 05/29/20 09:00 05/31/20 09:10 Enoxaparin 40 Mg/0.4 Ml Syringe SUBQ 40 mg DAILY NATHANIEL Administration Hydralazine HCl 10 mg 05/29/20 10:34 05/30/20 20:57 Hydralazine Inj 20 Mg/Ml Vial IVP 10 mg TID PRN Administration Hypertensive Emergency Amiodarone HCl/Dextrose 200 mls @ 33.333 mls/hr 05/31/20 08:10 05/31/20 12:00 Nexterone 360 Mg/200 Ml IV 05/31/20 14:09 33.33 mls/hr ONCE ONE Infusion Amiodarone HCl/Dextrose 200 mls @ 16.667 mls/hr 05/31/20 09:00 Nexterone 360 Mg/200 Ml IV .Q12H NATHANIEL 0.5 MG/MIN Potassium Chloride/Dextrose/Sod Cl 1,000 mls @ 125 mls/hr 05/31/20 09:00 05/31/20 11:50 D5ns W/20 Meq Kcl IV 125 mls/hr .Q8H NATHANIEL Infusion Insulin Aspart 3 - 11 unit 05/29/20 08:00 05/31/20 12:05 Insulin Aspart 300 Unit/3 Ml Pen SUBQ 5 unit 0800,1200,1700,2100 NATHANIEL Administration Protocol Insulin Glargine 25 unit 05/29/20 09:00 05/31/20 09:10 Insulin Glargine 300 Unit/3 Ml Pen SUBQ 25 unit BID NATHANIEL Administration Metoclopramide HCl 5 mg 05/28/20 21:03 05/30/20 03:05 Metoclopramide 10 Mg/2 Ml Vial IVP 5 mg Q6HR PRN Administration Nausea / Vomiting Metoprolol Tartrate 5 mg 05/29/20 09:00 05/31/20 11:57 Metoprolol 5 Mg/5 Ml Vial IVP 5 mg Q6HR NATHANIEL Administration Ondansetron HCl 4 mg 05/28/20 18:49 05/28/20 23:59 Ondansetron Odt 4 Mg Tablet TL 4 mg Q6HR PRN Administration Nausea / Vomiting Ondansetron HCl 4 mg 05/28/20 18:49 05/31/20 11:56 Ondansetron 4 Mg/2 Ml Vial IVP 4 mg Q6HR PRN Administration Nausea / Vomiting Oxycodone HCl 5 mg 05/28/20 18:49 05/31/20 04:51 Oxycodone 5 Mg Tablet PO 5 mg Q4HR PRN Administration Pain 5 to 7 Pantoprazole Sodium 40 mg 05/29/20 07:00 05/31/20 06:58 Pantoprazole 40 Mg Vial IVP 40 mg QDAC NATHANIEL Administration Prochlorperazine Edisylate 10 mg 05/29/20 15:55 05/31/20 08:00 Prochlorperazine 10 Mg/2 Ml Vial IVP 10 mg Q6HR PRN Administration Nausea / Vomiting Sodium Chloride 10 ml 05/29/20 01:00 05/31/20 09:10 Sodium Chloride Flush 0.9% 10 Ml Syringe IVP 10 ml 0100,0900,1700 NATHANIEL Administration Sodium Chloride 10 ml 05/28/20 18:49 05/30/20 18:54 Sodium Chloride Flush 0.9% 10 Ml Syringe IVP 10 ml PRN PRN Administration NEEDED PER PROVIDER ORDERS Sodium Chloride 20 ml 05/28/20 21:08 05/30/20 04:31 Sodium Chloride Flush 0.9% 10 Ml Syringe IVP 20 ml PRN PRN Administration After Blood Draw Tamsulosin HCl 0.4 mg 05/29/20 09:00 05/31/20 09:07 Tamsulosin 0.4 Mg Capsule PO 0.4 mg DAILY NATHANIEL Administration Tamsulosin [Flomax] 0.4 mg PO DAILY 06/09/19 Aspirin 81 mg PO DAILY 12/07/19 Atorvastatin [Lipitor] 40 mg PO DAILY 12/07/19 Carvedilol [Coreg] 25 mg PO DAILY 12/07/19 Losartan Potassium 50 mg PO DAILY 12/07/19 Metoclopramide [Reglan] 10 mg PO TID PRN 12/07/19 Acetaminophen [Acetaminophen Extra Strength] 500 mg PO DAILY 05/29/20 Ascorbic Acid [Vitamin C] 1,000 mg PO DAILY 05/29/20 Cholecalciferol [Vitamin D3] 5,000 units PO DAILY 05/29/20 Melatonin 10 mg PO HS 05/29/20 Ondansetron Odt [Zofran Odt] 4 mg PO TID PRN 05/29/20 Zinc Gluconate [Zinc] 15 mg PO DAILY 05/29/20 diphenhydrAMINE [Benadryl] 25 mg PO DAILY PRN 05/29/20 Objective - Vital Signs/Intake & Output Reviewed Vital Signs: Yes Vital Signs: Vital Signs Pulse Resp BP BP Pulse Ox 05/31/20 12:00 120 H 14 134/85 H 97 05/31/20 11:57 134/85 H 05/31/20 11:00 130 H 15 129/101 H 96 05/31/20 10:00 145 H 23 118/102 H 96 05/31/20 09:00 140 H 16 116/91 H Intake & Output: Intake & Output 05/28/20 05/29/20 05/30/20 05/31/20 23:59 23:59 23:59 23:59 Intake Total 2133.789 5148.750 5710.417 2144.159 Output Total 300 3400 2025 800 Balance 0748.242 3071.750 3685.417 1344.159 - Objective General Appearance: positive: No acute distress, Alert, Other (6 foot 2 inch white male at 110.6 kg that is disheveled, muted affect, sitting up in bed. Listless, board. Says that he is not uncomfortable other than his nausea.) Eyes Bilateral: positive: PERRL, EOMI ENT: positive: Pharynx nml Neck: positive: No JVD. negative: Stiff neck Respiratory: positive: No respiratory distress. negative: Wheezes, Rales, Rhonchi Cardiovascular: positive: Irregularly irregular, Tachycardia, Systolic murmur. negative: Gallop/S4, Friction rub Abdomen: positive: No organomegaly, Nml bowel sounds, No distention, Tenderness (Mild. Only with palpation. Epigastrium.) Skin: positive: Warm, Dry Extremities: positive: Full ROM, No pedal edema Neurologic/Psychiatric: positive: Oriented x3, CN's nml (2-12), Motor nml. negative: Sensation nml (Peripheral neuropathy feet) - Lab Results Fish Bones: 05/29/20 04:20 05/31/20 07:54 Other Labs: Lab Results x24hrs 05/31/20 05/31/20 05/30/20 Range/Units 08:03 07:54 16:47 Sodium 135 137 (135-145) mmol/L Potassium 3.5 3.3 L (3.5-5.0) mmol/L Chloride 101 103 (101-111) mmol/L Carbon Dioxide 22 24 (21-32) mmol/L Anion Gap 12.0 10.0 (6-13) BUN 23 H 24 H (6-20) mg/dL Creatinine 1.1 1.1 (0.6-1.2) mg/dL Estimated GFR (MDRD) 67 L 67 L (>89) Glucose 400 H 280 H (70-100) mg/dL Calcium 7.8 L 8.3 L (8.5-10.3) mg/dL Phosphorus 2.3 L (2.5-4.6) mg/dL Magnesium 1.7 1.8 (1.7-2.8) mg/dL Assessment/Plan - Problem List (1) New onset atrial fibrillation Impression: This morning his potassium is normal. Magnesium is normal. No fever. ST segments were not elevated on EKG. He denies chest pain, shortness of breath. Does not even feel the palpitations. He keeps on saying that "you are freaking me out" because we are so concerned about this. This morning I have stopped the diltiazem drip. Started him on amiodarone loading. He is was in the timeframe that we do not have to anticoagulate. I have ordered an echocardiogram to assess valves and chamber sizes. (2) DKA (diabetic ketoacidoses) resolved Impression: He was admitted his DKA. Started on the DKA protocol with an insulin drip. Overnight his glucose dropped so that he was able to come off the drip starting the morning of May 29. He is continued to have severe nausea and vomiting from gastroparesis. That is gradually improving and by the morning if 3/4 he continued to have intermittent but less frequent and less severe dry heaves. Interested in starting to eat some food but really not interested in eating a lot. Asked for things such as yogurt. I spoke to nutrition services. They say they are very familiar with him. They will work with him to let him have what he needs within a low-carb diet. He has some hypokalemia 3/4 and is on ICU replacement protocol. Plan: No new orders. Already transitioned to his home Lantus regimen Continue sliding scale Advance his diet as tolerated Once he is able to keep food down can safely be discharged to home I re-rx'd his glucometer, strips, lancets and meds to [facility] on 05/30/20. (3) KI (acute kidney injury) resolved. Conclusion/Plan: Likely prerenal in light of nausea and vomiting. Baseline creatinine is 1.1. He came in at 1.7>> 1.5>>1.1 since the 30 of May. Continue to monitor on a daily basis. (4) Gastroparesis diabeticorum Conclusion/Plan: Reglan 5 mg IV every 4 hours as needed ordered. Zofran also ordered as needed for nausea vomiting. Compazine IV as well Plan: No new orders. (5) BPH (benign prostatic hyperplasia) Conclusion/Plan: Will resume patient's tamsulosin when he is able to tolerate. (6) Hyperlipidemia Conclusion/Plan: Atorvastatin 40 mg p.o. daily When able to take p.o. (7) Hypertension Conclusion/Plan: On amlodipine, Coreg and Losartan But he cannot keep his pills down. 05/29, I switched him over to Lopressor 5 mg IV every 6. I also gave enalapril 1.25 every 6. I did add hydralazine as well. He is dubious about keeping his meds down so I have kept him IV treatment for this. Qualifiers: Hypertension type: essential hypertension Qualified Code(s): I10 - Essential (primary) hypertension (8) Coronary artery disease Conclusion/Plan: Is on Coreg, losartan, atorvastatin, aspirin and Plavix. Patient's troponin was 53. Repeat was 62>>77>>93>>74 in 3 am. No further trending now that he is on the downslope. EKG 05/29 and 05/30 was without change other than the new atrial fib. No acute STTW changes. Patient is asymptomatic. We will continue patient's home medications as listed above.
[2020-05-31] MEDS: NS W/20 MEQ KCL 1,000 ML IV SCH ×2 (13:20→21:13)
[2020-05-31] MEDS: AMIODARONE 360 MG/200 ML 200 ML IV SCH (14:15)
[2020-05-31] MEDS: CALCIUM CARBONATE CHEW 500 MG TABLET PO SCH ×3 (14:15→20:52)
[2020-05-31] MEDS ORDERED: diltiaZEM INJ 5 MG/ML VIAL IVP ONE (19:08)
[2020-05-31] MEDS: ATORVASTATIN 40 MG TABLET PO SCH (20:52)
[2020-06-01] MEDS: INSULIN ASPART 300 UNIT/3 ML PEN SUBQ SCH ×5 (00:18→20:36)
[2020-06-01] MEDS: AMIODARONE 360 MG/200 ML 200 ML IV SCH ×3 (00:19→14:22)
[2020-06-01] MEDS: METOPROLOL 5 MG/5 ML VIAL IVP SCH ×3 (00:32→11:57)
[2020-06-01] MEDS: ONDANSETRON 4 MG/2 ML VIAL IVP PRN ×4 (00:33→20:46)
[2020-06-01] MEDS: SODIUM CHLORIDE FLUSH 0.9% 10 ML SYRINGE IVP SCH ×4 (00:36→17:58)
[2020-06-01] MEDS: PROCHLORPERAZINE 10 MG/2 ML VIAL IVP PRN ×4 (03:30→23:35)
[2020-06-01 05:27] LABS: MAGNESIUM 1.8 mg/dL (1.7-2.8); PHOSPHORUS 3.6 mg/dL (2.5-4.6)
[2020-06-01] MEDS: CALCIUM CARBONATE CHEW 500 MG TABLET PO SCH ×3 (06:00→20:46)
[2020-06-01] MEDS: hydrALAZINE INJ 20 MG/ML VIAL IVP PRN (06:24)
[2020-06-01] MEDS: PANTOPRAZOLE 40 MG VIAL IVP SCH (06:59)
[2020-06-01 07:27] LABS: ALBUMIN 3.5 g/dL (3.2-5.5); CALCIUM 8.5 mg/dL (8.5-10.3); CREATININE 1.2 mg/dL (0.6-1.2); POTASSIUM 4.2 mmol/L (3.5-5.0)
[2020-06-01 07:29] LABS: EOSINOPHILS % (AUTO) 0.3 %; HCT - HEMATOCRIT 43.6 % (42.0-52.0); HGB - HEMOGLOBIN 14.7 g/dL (14.0-18.0); LYMPHOCYTES # (AUTO) 1.5 10^3/uL (1.5-3.5); LYMPHOCYTES % (AUTO) 16.2 %; MEAN CORPUSCULAR HEMOGLOBIN 31.7 pg (27.0-31.0); MEAN CORPUSCULAR HGB CONC 33.7 g/dL (32.0-36.0); MEAN CORPUSCULAR VOLUME 94.2 fL (80.0-94.0); MEAN PLATELET VOLUME 10.8 fL (7.4-11.4); MONOCYTES # (AUTO) 0.9 10^3/uL (0.0-1.0); MONOCYTES % (AUTO) 9.4 %; NEUTROPHILS # (AUTO) 6.7 10^3/uL (1.5-6.6); NEUTROPHILS % (AUTO) 73.9 %; PLT - PLATELET COUNT 210 10^3/uL (130-450); RED BLOOD COUNT 4.63 10^6/uL (4.70-6.10); RED CELL DISTRIBUTION WIDTH 13.9 % (12.0-15.0)
[2020-06-01] MEDS ORDERED: IOVERSOL 320 100 ML VIAL IVP ONE ×3 (08:22→09:42)
[2020-06-01] MEDS: TAMSULOSIN 0.4 MG CAPSULE PO SCH (08:35)
[2020-06-01] MEDS: ENOXAPARIN 40 MG/0.4 ML SYRINGE SUBQ SCH (08:37)
--- NOTE | 2020-06-01 09:58 | CT Report ---
PROCEDURE: ANGIO CHEST W/WO INDICATIONS: NEW AFIB CONTRAST: IV CONTRAST: Optiray 320 ml: 80 PO CONTRAST: *NO PO CONTRAST TECHNIQUE: After the administration of intravenous contrast, 2 mm thick sections acquired from the pulmonary api bon to the posterior costophrenic angles. 3-dimensional maximum intensity projection (MIP) coronal a nd sagittal reformats were then acquired through the thorax. For radiation dose reduction, the follow ing was used: automated exposure control, adjustment of mA and/or kV according to patient size. COMPARISON: None FINDINGS: Image quality: Excellent. Pulmonary arteries: There is subsegmental nonocclusive clot present in the lateral basal segment righ t lower lobe pulmonary artery. Lungs and pleura: Minimal bibasilar dependent change. No pleural effusions or pneumothorax. Central and peripheral airways are patent. Mediastinum: Normal heart size. Mild pericardial effusion. No mediastinal or hilar adenopathy. Thora cic aorta is normal in caliber and enhancement. Esophagus is normal in caliber, without hiatal herni a. Bones and chest wall: No suspicious bony lesions. Ribs and thoracic spine appear intact throughout. There is a 1.2 cm nodule in the right lobe of the thyroid. A right IJ central venous catheter is in satisfactory position. No axillary or supraclavicular adenopathy. Abdomen: Small gallstones in the gallbladder. Visualized upper abdominal solid organs otherwise appe ar normal in the early arterial phase of enhancement. IMPRESSION: 1. Subsegmental acute pulmonary embolus, right lower lobe. 2. Small pericardial effusion. 3. Incidental 1.2 cm right thyroid nodule. Above discussed with Cristina Geller at the time of dictation on 06/01/2020 and 0856 hours [place] time. Reviewed by: Carter Graham MD on 06/01/2020 8:[address] [facility] Approved by: Carter Graham MD on 06/01/2020 8:[address] [facility] Station ID: [id number]
[2020-06-01] MEDS: ASPIRIN EC 81 MG TABLET PO SCH (10:05)
[2020-06-01] MEDS: INSULIN GLARGINE 300 UNIT/3 ML PEN SUBQ SCH ×2 (10:05→20:46)
[2020-06-01] MEDS: NS W/20 MEQ KCL 1,000 ML IV SCH (10:44)
[2020-06-01] MEDS: APIXABAN 5 MG TABLET PO SCH ×2 (10:55→20:46)
[2020-06-01] MEDS ORDERED: ENOXAPARIN 40 MG/0.4 ML SYRINGE SUBQ SCH (11:00)
[2020-06-01] MEDS: SODIUM CHLORIDE FLUSH 0.9% 10 ML SYRINGE IVP PRN (11:59)
[2020-06-01] MEDS: METOCLOPRAMIDE 10 MG/2 ML VIAL IVP PRN (12:00)
--- NOTE | 2020-06-01 13:16 | PROVIDER PROGRESS NOTE ---
Subjective - Prog Note Date Prog Note Date: 06/01/20 Prog Note Time: 14:26 - Subjective Subjective: He does not feel the palpitations. Denies being short of breath. No chest pain. Nevertheless he continues to have A. fib with RVR in spite of amiodarone loading, as needed Cardizem, as needed Lopressor. Is still asking for yogurt. Current Medications - Current Medications Current Medications: Active Medications Acetaminophen (Acetaminophen 325 Mg Tablet) 650 mg PO Q4HR PRN PRN Reason: Pain 1 to 4 Apixaban (Apixaban 5 Mg Tablet) 10 mg PO BID [facility] Last Admin: 06/01/20 10:55 Dose: 10 mg Documented by: Aspirin (Aspirin Ec 81 Mg Tablet) 81 mg PO DAILY [facility] Last Admin: 06/01/20 10:05 Dose: 81 mg Documented by: Atorvastatin Calcium (Atorvastatin 40 Mg Tablet) 40 mg PO QPM [facility] Last Admin: 05/31/20 20:52 Dose: 40 mg Documented by: Calcium Carbonate/Glycine (Calcium Carbonate Chew 500 Mg Tablet) 500 mg PO TID [facility] Last Admin: 06/01/20 14:06 Dose: 500 mg Documented by: Hydralazine HCl (Hydralazine Inj 20 Mg/Ml Vial) 10 mg IVP TID PRN PRN Reason: Hypertensive Emergency Last Admin: 06/01/20 06:24 Dose: 10 mg Documented by: Amiodarone HCl/Dextrose (Nexterone 360 Mg/200 Ml) 200 mls @ 16.667 mls/hr IV .Q12H [facility] Last Admin: 06/01/20 14:22 Dose: 0.5 mg/min, 16.7 mls/hr Documented by: Potassium Chloride/Sodium Chloride (Normal Saline 0.9% W/20 Meq Kcl) 1,000 mls @ 83.333 mls/hr IV .Q12H [facility] Last Admin: 06/01/20 10:44 Dose: 83 mls/hr Documented by: Insulin Aspart (Insulin Aspart 300 Unit/3 Ml Pen) 3 - 11 unit SUBQ 08 00,1200,1700,2100 [facility]; Protocol Last Admin: 06/01/20 11:48 Dose: 5 unit Documented by: Insulin Glargine (Insulin Glargine 300 Unit/3 Ml Pen) 25 unit SUBQ BID [facility] Last Admin: 06/01/20 10:05 Dose: 25 unit Documented by: Metoclopramide HCl (Metoclopramide 10 Mg/2 Ml Vial) 5 mg IVP Q6HR PRN PRN Reason: Nausea / Vomiting Last Admin: 06/01/20 12:00 Dose: 5 mg Documented by: Metoprolol Tartrate (Metoprolol 5 Mg/5 Ml Vial) 5 mg IVP Q6HR [facility] Last Admin: 06/01/20 11:57 Dose: 5 mg Documented by: Ondansetron HCl (Ondansetron Odt 4 Mg Tablet) 4 mg TL Q6HR PRN PRN Reason: Nausea / Vomiting Last Admin: 05/28/20 23:59 Dose: 4 mg Documented by: Ondansetron HCl (Ondansetron 4 Mg/2 Ml Vial) 4 mg IVP Q6HR PRN PRN Reason: Nausea / Vomiting Last Admin: 06/01/20 06:24 Dose: 4 mg Documented by: Oxycodone HCl (Oxycodone 5 Mg Tablet) 5 mg PO Q4HR PRN PRN Reason: Pain 5 to 7 Last Admin: 05/31/20 04:51 Dose: 5 mg Documented by: Pantoprazole Sodium (Pantoprazole 40 Mg Vial) 40 mg IVP QDAC [facility] Last Admin: 06/01/20 06:59 Dose: 40 mg Documented by: Prochlorperazine Edisylate (Prochlorperazine 10 Mg/2 Ml Vial) 10 mg IVP Q6HR PRN PRN Reason: Nausea / Vomiting Last Admin: 06/01/20 09:41 Dose: 10 mg Documented by: Sodium Chloride (Sodium Chloride Flush 0.9% 10 Ml Syringe) 10 ml IVP 0100,0900,1700 [facility] Last Admin: 06/01/20 10:04 Dose: 10 ml Documented by: Sodium Chloride (Sodium Chloride Flush 0.9% 10 Ml Syringe) 10 ml IVP PRN PRN PRN Reason: NEEDED PER PROVIDER ORDERS Last Admin: 06/01/20 11:59 Dose: 10 ml Documented by: Sodium Chloride (Sodium Chloride Flush 0.9% 10 Ml Syringe) 20 ml IVP PRN PRN PRN Reason: After Blood Draw Last Admin: 05/30/20 04:31 Dose: 20 ml Documented by: Tamsulosin HCl (Tamsulosin 0.4 Mg Capsule) 0.4 mg PO DAILY NATHANIEL Last Admin: 06/01/20 08:35 Dose: 0.4 mg Documented by: Tamsulosin [Flomax] 0.4 mg PO DAILY 06/09/19 Aspirin 81 mg PO DAILY 12/07/19 Atorvastatin [Lipitor] 40 mg PO DAILY 12/07/19 Carvedilol [Coreg] 25 mg PO DAILY 12/07/19 Losartan Potassium 50 mg PO DAILY 12/07/19 Metoclopramide [Reglan] 10 mg PO TID PRN 12/07/19 Acetaminophen [Acetaminophen Extra Strength] 500 mg PO DAILY 05/29/20 Ascorbic Acid [Vitamin C] 1,000 mg PO DAILY 05/29/20 Cholecalciferol [Vitamin D3] 5,000 units PO DAILY 05/29/20 Melatonin 10 mg PO HS 05/29/20 Ondansetron Odt [Zofran Odt] 4 mg PO TID PRN 05/29/20 Zinc Gluconate [Zinc] 15 mg PO DAILY 05/29/20 diphenhydrAMINE [Benadryl] 25 mg PO DAILY PRN 05/29/20 Objective - Vital Signs/Intake & Output Reviewed Vital Signs: Yes Vital Signs: Vital Signs Pulse Resp BP BP Pulse Ox 06/01/20 12:00 124 H 10 L 121/98 H 06/01/20 11:57 134/86 H 06/01/20 11:00 133 H 13 134/86 H 95 06/01/20 10:00 135 H 26 H 136/119 H 96 Intake & Output: Intake & Output 05/29/20 05/30/20 05/31/20 06/01/20 23:59 23:59 23:59 23:59 Intake Total 5148.750 5710.417 3991.220 2670.7 Output Total 3400 2025 2150 650 Balance 3386.024 0942.417 2349.598 9107.7 - Objective General Appearance: positive: No acute distress, Alert, Other (Unshaven, disheveled, white male who looks his stated age. Able to sit up, put his feet on the side of the bed without any tachypnea, effort.) Eyes Bilateral: positive: PERRL ENT: positive: No signs of dehydration Neck: positive: No JVD. negative: Stiff neck Respiratory: positive: No respiratory distress. negative: Wheezes, Rales, Rhonchi Cardiovascular: positive: Irregularly irregular, Tachycardia. negative: Gallop/S4, Friction rub Abdomen: positive: Non-tender, No organomegaly, Nml bowel sounds, No distention Skin: positive: Warm, Dry, Pallor Extremities: positive: Full ROM, No pedal edema Neurologic/Psychiatric: positive: Oriented x3, CN's nml (2-12), Motor nml - Lab Results Fish Bones: 06/01/20 05:00 06/01/20 05:00 Other Labs: Lab Results x24hrs 06/01/20 06/01/20 06/01/20 Range/Units 05:00 05:00 05:00 WBC 9.0 (4.8-10.8) x10^3/uL RBC 4.63 L (4.70-6.10) 10^6/uL Hgb 14.7 (14.0-18.0) g/dL Hct 43.6 (42.0-52.0) % MCV 94.2 H (80.0-94.0) fL MCH 31.7 H (27.0-31.0) pg MCHC 33.7 (32.0-36.0) g/dL RDW 13.9 (12.0-15.0) % Plt Count 210 (130-450) 10^3/uL MPV 10.8 (7.4-11.4) fL Neut # (Auto) 6.7 H (1.5-6.6) 10^3/uL Lymph # (Auto) 1.5 (1.5-3.5) 10^3/uL [place] # (Auto) 0.9 (0.0-1.0) 10^3/uL Eos # (Auto) 0.0 (0.0-0.7) 10^3/uL Baso # (Auto) 0.0 (0.0-0.1) 10^3/uL Absolute Nucleated RBC 0.00 x10^3/uL Nucleated RBC % 0.0 /100WBC Sodium 142 (135-145) mmol/L Potassium 4.2 (3.5-5.0) mmol/L Chloride 107 (101-111) mmol/L Carbon Dioxide 24 (21-32) mmol/L Anion Gap 11.0 (6-13) BUN 20 (6-20) mg/dL Creatinine 1.2 (0.6-1.2) mg/dL Estimated GFR (MDRD) 61 L (>89) Glucose 86 (70-100) mg/dL Calcium 8.5 (8.5-10.3) mg/dL Phosphorus (2.5-4.6) mg/dL Magnesium (1.7-2.8) mg/dL Albumin 3.5 (3.2-5.5) g/dL TSH 4.35 (0.34-5.60) uIU/mL 06/01/20 Range/Units 05:00 WBC (4.8-10.8) x10^3/uL RBC (4.70-6.10) 10^6/uL Hgb (14.0-18.0) g/dL Hct (42.0-52.0) % MCV (80.0-94.0) fL MCH (27.0-31.0) pg MCHC (32.0-36.0) g/dL RDW (12.0-15.0) % Plt Count (130-450) 10^3/uL MPV (7.4-11.4) fL Neut # (Auto) (1.5-6.6) 10^3/uL Lymph # (Auto) (1.5-3.5) 10^3/uL [place] # (Auto) (0.0-1.0) 10^3/uL Eos # (Auto) (0.0-0.7) 10^3/uL Baso # (Auto) (0.0-0.1) 10^3/uL Absolute Nucleated RBC x10^3/uL Nucleated RBC % /100WBC Sodium (135-145) mmol/L Potassium (3.5-5.0) mmol/L Chloride (101-111) mmol/L Carbon Dioxide (21-32) mmol/L Anion Gap (6-13) BUN (6-20) mg/dL Creatinine (0.6-1.2) mg/dL Estimated GFR (MDRD) (>89) Glucose (70-100) mg/dL Calcium (8.5-10.3) mg/dL Phosphorus 3.6 (2.5-4.6) mg/dL Magnesium 1.8 (1.7-2.8) mg/dL Albumin (3.2-5.5) g/dL TSH (0.34-5.60) uIU/mL Assessment/Plan - Problem List (1) Pulmonary emboli Impression: I did a CT pulmonary angiogram looking for reasons why his A. fib was not well controlled. Found him to have a subsegmental defect just at the end of the pulmonary artery. Plan: Eliquis 10 mg p.o. twice daily, stop Lovenox (2) Atrial Fibrillation with RVR Continues to be in A. fib with RVR since mid afternoon May 30. We treated him with diltiazem IV push x2. Also his blood pressure is IV push. In the first few hours we had no success in getting his heart rate down so on the morning of May 31 I started him on an amiodarone loading dose. He continues to have significant tachycardia. TSH was normal. Troponins were normal. Echocardiogram did not show valvular heart disease and he only had a minimally enlarged left atrium. As such I completed the work-up to do a CT pulmonary angiogram. PE was positive. Plan: Finished amiodarone loading and then transition to p.o. Continue to rate lower with Lopressor IV push as needed, diltiazem IV push as needed and hopefully get his rate control. (2) DKA (diabetic ketoacidoses) resolved Impression: He was admitted his DKA. Started on the DKA protocol with an insulin drip. Overnight his glucose dropped so that he was able to come off the drip starting the morning of May 29. He is continued to have severe nausea and vomiting from gastroparesis. That is gradually improving and by the morning of 05/30 he continued to have intermittent but less frequent and less severe dry heaves. Interested in starting to eat some food but really not interested in eating a lot. Asked for things such as yogurt. I spoke to nutrition services. They say they are very familiar with him. They will work with him to let him have what he needs within a low-carb diet. He has some hypokalemia 05/30 and is on ICU replacement protocol. Already on his home Lantus regimen. I am continuing sliding scale. His supplies for glucometer, test trips, lancets and medication has been faxed to [facility] as of May 30. Initially he was on a D5 drip with potassium supplementation. That was artificially elevating his glucose. So I switched him over to normal saline as of yesterday. Today his glucose was 77, 117, 196. No new orders. (3) KI (acute kidney injury) resolved. Conclusion/Plan: Likely prerenal in light of nausea and vomiting. Baseline creatinine is 1.1. He came in at 1.7>> 1.5>>1.1>>>1.2 today Continue to monitor on a daily basis. (4) Gastroparesis diabeticorum Conclusion/Plan: Reglan 5 mg IV every 4 hours as needed ordered. Zofran also ordered as needed for nausea vomiting. Compazine IV as well Plan: No new orders. (5) BPH (benign prostatic hyperplasia) Conclusion/Plan: Will resume patient's tamsulosin when he is able to tolerate. (6) Hyperlipidemia Conclusion/Plan: Atorvastatin 40 mg p.o. daily When able to take p.o. (7) Hypertension Conclusion/Plan: On amlodipine, Coreg and Losartan But he cannot keep his pills down. 05/29, I switched him over to Lopressor 5 mg IV every 6. I also gave enalapril 1.25 every 6. I did add hydralazine as well. He is dubious about keeping his meds down so I have kept him IV treatment for this. Qualifiers: Hypertension type: essential hypertension Qualified Code(s): I10 - Essential (primary) hypertension (8) Coronary artery disease Conclusion/Plan: Is on Coreg, losartan, atorvastatin, aspirin and Plavix. Patient's troponin was 53. Repeat was 62>>77>>93>>74 in 3 am. No further trending now that he is on the downslope. EKG 05/29 and 05/30 was without change other than the new atrial fib. No acute STTW changes. Patient is asymptomatic. We will continue patient's home medications as listed above.
[2020-06-01] MEDS ORDERED: diltiaZEM INJ 5 MG/ML VIAL IVP ONE (14:29)
[2020-06-01] MEDS: AMIODARONE 200 MG TABLET PO SCH (17:51)
[2020-06-01] MEDS ORDERED: METOPROLOL 5 MG/5 ML VIAL IVP SCH (18:00)
[2020-06-01] MEDS: ATORVASTATIN 40 MG TABLET PO SCH (20:46)
[2020-06-01] MEDS: carvediloL 12.5 MG TABLET PO SCH (20:46)
[2020-06-01] MEDS ORDERED: METOPROLOL 5 MG/5 ML VIAL IVP PRN (20:49)
[2020-06-01] MEDS: oxyCODONE 5 MG TABLET PO PRN (22:55)
[2020-06-02] MEDS: SODIUM CHLORIDE FLUSH 0.9% 10 ML SYRINGE IVP SCH ×3 (02:04→21:35)
[2020-06-02] MEDS: NS W/20 MEQ KCL 1,000 ML IV SCH ×2 (02:38→15:15)
[2020-06-02] MEDS: METOCLOPRAMIDE 10 MG/2 ML VIAL IVP PRN (02:39)
[2020-06-02] MEDS: oxyCODONE 5 MG TABLET PO PRN (03:50)
[2020-06-02] MEDS: ONDANSETRON 4 MG/2 ML VIAL IVP PRN ×2 (03:50→10:00)
[2020-06-02 05:08] LABS: BASOPHILS % (AUTO) 0.2 %; EOSINOPHILS # (AUTO) 0.2 10^3/uL (0.0-0.7); EOSINOPHILS % (AUTO) 2.5 %; HCT - HEMATOCRIT 38.1 % (42.0-52.0); HGB - HEMOGLOBIN 12.6 g/dL (14.0-18.0); LYMPHOCYTES # (AUTO) 0.8 10^3/uL (1.5-3.5); LYMPHOCYTES % (AUTO) 12.9 %; MEAN CORPUSCULAR HEMOGLOBIN 30.7 pg (27.0-31.0); MEAN CORPUSCULAR HGB CONC 33.1 g/dL (32.0-36.0); MEAN CORPUSCULAR VOLUME 92.9 fL (80.0-94.0); MEAN PLATELET VOLUME 10.3 fL (7.4-11.4); MONOCYTES # (AUTO) 0.6 10^3/uL (0.0-1.0); MONOCYTES % (AUTO) 9.5 %; NEUTROPHILS # (AUTO) 4.5 10^3/uL (1.5-6.6); NEUTROPHILS % (AUTO) 74.7 %; PLT - PLATELET COUNT 174 10^3/uL (130-450); RED CELL DISTRIBUTION WIDTH 13.7 % (12.0-15.0)
[2020-06-02 05:16] LABS: CREATININE 1.2 mg/dL (0.6-1.2); POTASSIUM 3.7 mmol/L (3.5-5.0)
[2020-06-02] MEDS: CALCIUM CARBONATE CHEW 500 MG TABLET PO SCH ×3 (06:10→21:27)
[2020-06-02] MEDS: PANTOPRAZOLE 40 MG VIAL IVP SCH (06:10)
[2020-06-02] MEDS: PROCHLORPERAZINE 10 MG/2 ML VIAL IVP PRN (08:37)
[2020-06-02] MEDS: AMIODARONE 200 MG TABLET PO SCH (08:38)
[2020-06-02] MEDS: APIXABAN 5 MG TABLET PO SCH (08:38)
[2020-06-02] MEDS: ASPIRIN EC 81 MG TABLET PO SCH (08:39)
[2020-06-02] MEDS: carvediloL 12.5 MG TABLET PO SCH ×2 (08:39→21:28)
[2020-06-02] MEDS: TAMSULOSIN 0.4 MG CAPSULE PO SCH (08:39)
[2020-06-02] MEDS: INSULIN GLARGINE 300 UNIT/3 ML PEN SUBQ SCH ×2 (08:46→21:34)
[2020-06-02] MEDS: INSULIN ASPART 300 UNIT/3 ML PEN SUBQ SCH ×4 (08:46→21:30)
[2020-06-02] MEDS ORDERED: ENOXAPARIN 100 MG/ML SYRINGE SUBQ SCH (09:00)
[2020-06-02] MEDS: polyethylene glycoL 3350 17 GM PACKET PO SCH (09:59)
--- NOTE | 2020-06-02 12:12 | PROVIDER PROGRESS NOTE ---
Subjective - Prog Note Date Prog Note Date: 06/02/20 Prog Note Time: 12:14 - Subjective Pt reports feeling: No change Subjective: No appetite. Still nauseated. Forcing himself to eat. Gets hypoglycemic if he does not. Needed several glasses of orange juice this morning. Denies chest pain, palpitations, shortness of breath. Current Medications - Current Medications Current Medications: Active Medications Acetaminophen (Acetaminophen 325 Mg Tablet) 650 mg PO Q4HR PRN PRN Reason: Pain 1 to 4 Amiodarone HCl (Amiodarone 200 Mg Tablet) 200 mg PO DAILY [facility] Last Admin: 06/02/20 08:38 Dose: 200 mg Documented by: Apixaban (Apixaban 5 Mg Tablet) 10 mg PO BID [facility] Last Admin: 06/02/20 08:38 Dose: 10 mg Documented by: Aspirin (Aspirin Ec 81 Mg Tablet) 81 mg PO DAILY [facility] Last Admin: 06/02/20 08:39 Dose: 81 mg Documented by: Atorvastatin Calcium (Atorvastatin 40 Mg Tablet) 40 mg PO QPM [facility] Last Admin: 06/01/20 20:46 Dose: 40 mg Documented by: Calcium Carbonate/Glycine (Calcium Carbonate Chew 500 Mg Tablet) 500 mg PO TID [facility] Last Admin: 06/02/20 06:10 Dose: 500 mg Documented by: Carvedilol (Carvedilol 12.5 Mg Tablet) 12.5 mg PO BID [facility] Last Admin: 06/02/20 08:39 Dose: 12.5 mg Documented by: Hydralazine HCl (Hydralazine Inj 20 Mg/Ml Vial) 10 mg IVP TID PRN PRN Reason: Hypertensive Emergency Last Admin: 06/01/20 06:24 Dose: 10 mg Documented by: Potassium Chloride/Sodium Chloride (Normal Saline 0.9% W/20 Meq Kcl) 1,000 mls @ 83.333 mls/hr IV .Q12H [facility] Last Admin: 06/02/20 02:38 Dose: 83 mls/hr Documented by: Insulin Aspart (Insulin Aspart 300 Unit/3 Ml Pen) 3 - 11 unit SUBQ 0800,1 200,1700,2100 [facility]; Protocol Last Admin: 06/02/20 11:42 Dose: 3 unit Documented by: Insulin Glargine (Insulin Glargine 300 Unit/3 Ml Pen) 18 unit SUBQ BID [facility] Last Admin: 06/02/20 08:46 Dose: 18 unit Documented by: Metoclopramide HCl (Metoclopramide 10 Mg/2 Ml Vial) 5 mg IVP Q6HR PRN PRN Reason: Nausea / Vomiting Last Admin: 06/02/20 02:39 Dose: 5 mg Documented by: Metoprolol Tartrate (Metoprolol 5 Mg/5 Ml Vial) 5 mg IVP Q6HR PRN PRN Reason: NEEDED PER PROVIDER ORDERS Ondansetron HCl (Ondansetron Odt 4 Mg Tablet) 4 mg TL Q6HR PRN PRN Reason: Nausea / Vomiting Last Admin: 05/28/20 23:59 Dose: 4 mg Documented by: Ondansetron HCl (Ondansetron 4 Mg/2 Ml Vial) 4 mg IVP Q6HR PRN PRN Reason: Nausea / Vomiting Last Admin: 06/02/20 10:00 Dose: 4 mg Documented by: Oxycodone HCl (Oxycodone 5 Mg Tablet) 5 mg PO Q4HR PRN PRN Reason: Pain 5 to 7 Last Admin: 06/02/20 03:50 Dose: 5 mg Documented by: Pantoprazole Sodium (Pantoprazole 40 Mg Vial) 40 mg IVP QDAC [facility] Last Admin: 06/02/20 06:10 Dose: 40 mg Documented by: Polyethylene Glycol (Polyethylene Glycol 3350 17 Gm Packet) 17 gm PO DAILY [facility] Last Admin: 06/02/20 09:59 Dose: Not Given Documented by: Prochlorperazine Edisylate (Prochlorperazine 10 Mg/2 Ml Vial) 10 mg IVP Q6HR PRN PRN Reason: Nausea / Vomiting Last Admin: 06/02/20 08:37 Dose: 10 mg Documented by: Sodium Chloride (Sodium Chloride Flush 0.9% 10 Ml Syringe) 10 ml IVP 0100,0900,1700 [facility] Last Admin: 06/02/20 10:00 Dose: 10 ml Documented by: Sodium Chloride (Sodium Chloride Flush 0.9% 10 Ml Syringe) 10 ml IVP PRN PRN PRN Reason: NEEDED PER PROVIDER ORDERS Last Admin: 06/01/20 11:59 Dose: 10 ml Documented by: Sodium Chloride (Sodium Chloride Flush 0.9% 10 Ml Syringe) 20 ml IVP PRN PRN PRN Reason: After Blood Draw Last Admin: 05/30/20 04:31 Dose: 20 ml Documented by: Tamsulosin HCl (Tamsulosin 0.4 Mg Capsule) 0.4 mg PO DAILY [facility] Last Admin: 06/02/20 08:39 Dose: 0.4 mg Documented by: Tamsulosin [Flomax] 0.4 mg PO DAILY 06/09/19 Aspirin 81 mg PO DAILY 12/07/19 Atorvastatin [Lipitor] 40 mg PO DAILY 12/07/19 Carvedilol [Coreg] 25 mg PO DAILY 12/07/19 Losartan Potassium 50 mg PO DAILY 12/07/19 Metoclopramide [Reglan] 10 mg PO TID PRN 12/07/19 Acetaminophen [Acetaminophen Extra Strength] 500 mg PO DAILY 05/29/20 Ascorbic Acid [Vitamin C] 1,000 mg PO DAILY 05/29/20 Cholecalciferol [Vitamin D3] 5,000 units PO DAILY 05/29/20 Melatonin 10 mg PO HS 05/29/20 Ondansetron Odt [Zofran Odt] 4 mg PO TID PRN 05/29/20 Zinc Gluconate [Zinc] 15 mg PO DAILY 05/29/20 diphenhydrAMINE [Benadryl] 25 mg PO DAILY PRN 05/29/20 Objective - Vital Signs/Intake & Output Reviewed Vital Signs: Yes Vital Signs: Vital Signs x48h Temp Pulse Resp BP Pulse Ox 06/02/20 12:00 102 H 22 146/104 H 06/02/20 10:00 94 21 123/71 06/02/20 09:00 118 H 18 124/82 H 06/02/20 08:00 36.7 C 124 H 23 183/108 H 97 06/02/20 07:00 110 H 11 L 121/83 H 94 06/02/20 06:00 118 H 17 130/79 97 06/02/20 05:00 37.0 C 115 H 15 109/74 97 Intake & Output: Intake & Output 05/30/20 05/31/20 06/01/20 06/02/20 23:59 23:59 23:59 23:59 Intake Total 5710.417 3991.220 3753.882 1640 Output Total 2024 2149 1875 Balance 3685.417 0903.169 3868.882 1640 - Objective General Appearance: positive: No acute distress, Alert, Other (Disheveled unshaven white male who is able to get himself up to the bathroom without any assist.) Eyes Bilateral: positive: PERRL ENT: positive: No signs of dehydration Neck: positive: No JVD Respiratory: positive: Chest non-tender. negative: Wheezes, Rales, Rhonchi Cardiovascular: positive: Irregularly irregular, Tachycardia. negative: Brothers p/S4, Friction rub Abdomen: positive: Non-tender, No organomegaly, Nml bowel sounds, No distention Skin: positive: Warm, Dry Extremities: positive: Full ROM, No pedal edema Neurologic/Psychiatric: positive: Oriented x3, CN's nml (2-12), Motor nml - Lab Results Fish Bones: 06/02/20 04:45 06/02/20 04:45 Other Labs: Lab Results x24hrs 06/02/20 06/02/20 Range/Units 04:45 04:45 WBC 6.0 (4.8-10.8) x10^3/uL RBC 4.10 L (4.70-6.10) 10^6/uL Hgb 12.6 L (14.0-18.0) g/dL Hct 38.1 L (42.0-52.0) % MCV 92.9 (80.0-94.0) fL MCH 30.7 (27.0-31.0) pg MCHC 33.1 (32.0-36.0) g/dL RDW 13.7 (12.0-15.0) % Plt Count 174 (130-450) 10^3/uL MPV 10.3 (7.4-11.4) fL Neut # (Auto) 4.5 (1.5-6.6) 10^3/uL Lymph # (Auto) 0.8 L (1.5-3.5) 10^3/uL [place] # (Auto) 0.6 (0.0-1.0) 10^3/uL Eos # (Auto) 0.2 (0.0-0.7) 10^3/uL Baso # (Auto) 0.0 (0.0-0.1) 10^3/uL Absolute Nucleated RBC 0.00 x10^3/uL Nucleated RBC % 0.0 /100WBC Sodium 137 (135-145) mmol/L Potassium 3.7 (3.5-5.0) mmol/L Chloride 106 (101-111) mmol/L Carbon Dioxide 24 (21-32) mmol/L Anion Gap 7.0 (6-13) BUN 19 (6-20) mg/dL Creatinine 1.2 (0.6-1.2) mg/dL Estimated GFR (MDRD) 61 L (>89) Glucose 185 H (70-100) mg/dL Calcium 8.0 L (8.5-10.3) mg/dL Assessment/Plan - Problem List (1) Pulmonary emboli Impression: I did a CT pulmonary angiogram looking for reasons why his A. fib was not well controlled On June 01.. Found him to have a subsegmental defect just at the end of the pulmonary artery. I started him on Eliquis 10 mg p.o. twice daily. Stop his Lovenox. Case management informed today that Eliquis is not covered by his insurance and they prefer Xarelto. Plan: Stop Eliquis, Prescription sent to his pharmacy for Xarelto 15 mg p.o. twice daily. I am asking them to call and confirm that they cover this medication form. (2) Atrial Fibrillation with RVR Continues to be in A. fib with RVR since mid afternoon May 30. We treated him with diltiazem IV push x2. Also his blood pressure is IV push. In the first few hours we had no success in getting his heart rate down so on the morning of May 31 I started him on an amiodarone loading dose. TSH was normal. Troponins were normal. Echocardiogram did not show valvular heart disease and he only had a minimally enlarged left atrium. As such I completed the work-up to do a CT pulmonary angiogram. PE was positive. Yesterday afternoon we resumed his home Coreg. I have been holding off on that since he has been having emesis and not eating. He was able to keep the Coreg down. Between yesterday and today, heart rate has slowed down when he is at rest. It is 90 to the low 100s. Only when he gets up to get to the 130s. Again he continues to have no complaints of chest pain, shortness of breath. Plan: Order on IV loading stop. Switch to amiodarone p.o. Added Coreg p.o. yesterday. Continue diltiazem or Lopressor IV push as needed. (2) DKA (diabetic ketoacidoses) resolved Impression: He was admitted his DKA. Started on the DKA protocol with an insulin drip. Overnight his glucose dropped so that he was able to come off the drip starting the morning of May 29. He is continued to have severe nausea and vomiting from gastroparesis. That is gradually improving and by the morning of 05/30 he em nued to have intermittent but less frequent and less severe dry heaves. Interested in starting to eat some food but really not interested in eating a lot. Asked for things such as yogurt. I spoke to nutrition services. They say they are very familiar with him. They will work with him to let him have what he needs within a low-carb diet. He has some hypokalemia 05/30 and is on ICU replacement protocol. Already on his home Lantus regimen. I am continuing sliding scale. His supplies for glucometer, test trips, lancets and medication has been faxed to [facility] as of May 30. Initially he was on a D5 drip with potassium supplementation. That was artificially elevating his glucose. So I switched him over to normal saline as of 05/31/20. He was switched over to regular food yesterday. Minimal, minimal p.o. intake. This morning glucose is 68, 77, 151 and then finally 160. No new orders. (3) KI (acute kidney injury) resolved. Conclusion/Plan: Likely prerenal in light of nausea and vomiting. Baseline creatinine is 1.1. He came in at 1.7>> 1.5>>1.1>>>1.2 today Continue to monitor on a daily basis. (4) Gastroparesis diabeticorum Conclusion/Plan: Reglan 5 mg IV every 4 hours as needed ordered. Zofran also ordered as needed for nausea vomiting. Compazine IV as well Plan: No new orders. (5) BPH (benign prostatic hyperplasia) Conclusion/Plan: Tamsulosin has been resumed for a few days now. Tolerating it well. (6) Hyperlipidemia Conclusion/Plan: Atorvastatin 40 mg p.o. daily (7) Hypertension Conclusion/Plan: On amlodipine, Coreg and Losartan But he cannot keep his pills down. 05/29, I switched him over to Lopressor 5 mg IV every 6. I also gave enalapril 1.25 every 6. I did add hydralazine as well. He is dubious about keeping his meds down so I have kept him IV treatment for this. As of today, tentatively switching over to p.o. Coreg, losartan. Hopefully he will be able to keep those meds down. Also p.o. amiodarone. Qualifiers: Hypertension type: essential hypertension Qualified Code(s): I10 - Essential (primary) hypertension (8) Coronary artery disease Conclusion/Plan: Is on Coreg, losartan, atorvastatin, aspirin and Plavix. Patient's troponin was 53. Repeat was 62>>77>>93>>74 in 05/29 am. No further trending now that he is on the downslope. EKG 05/29 and 05/30 was without change other than the new atrial fib. No acute STTW changes. Patient is asymptomatic. We will continue patient's home medications as listed above.
[2020-06-02] MEDS ORDERED: WARFARIN 5 MG TABLET PO ONE (16:00)
[2020-06-02 16:44] LABS: INR 1.6 (0.8-1.2); PT - PROTHROMBIN TIME 17.4 secs (9.9-12.6)
[2020-06-02] MEDS ORDERED: AMIODARONE 200 MG TABLET PO SCH (17:27)
[2020-06-02] MEDS ORDERED: ATORVASTATIN 40 MG TABLET PO SCH (21:00)
[2020-06-02] MEDS: ATORVASTATIN 40 MG TABLET PO SCH (21:28)
[2020-06-03] MEDS: ONDANSETRON 4 MG/2 ML VIAL IVP PRN (00:18)
[2020-06-03] MEDS: SODIUM CHLORIDE FLUSH 0.9% 10 ML SYRINGE IVP SCH ×2 (00:21→08:38)
[2020-06-03] MEDS: SODIUM CHLORIDE FLUSH 0.9% 10 ML SYRINGE IVP PRN ×3 (00:21→06:25)
[2020-06-03] MEDS: NS W/20 MEQ KCL 1,000 ML IV SCH (02:53)
[2020-06-03 06:22] LABS: BASOPHILS % (AUTO) 0.2 %; EOSINOPHILS # (AUTO) 0.4 10^3/uL (0.0-0.7); EOSINOPHILS % (AUTO) 5.9 %; HCT - HEMATOCRIT 39.3 % (42.0-52.0); HGB - HEMOGLOBIN 13.4 g/dL (14.0-18.0); LYMPHOCYTES % (AUTO) 17.3 %; MEAN CORPUSCULAR HEMOGLOBIN 30.9 pg (27.0-31.0); MEAN CORPUSCULAR HGB CONC 34.1 g/dL (32.0-36.0); MEAN CORPUSCULAR VOLUME 90.8 fL (80.0-94.0); MEAN PLATELET VOLUME 10.1 fL (7.4-11.4); MONOCYTES # (AUTO) 0.6 10^3/uL (0.0-1.0); NEUTROPHILS # (AUTO) 3.9 10^3/uL (1.5-6.6); NEUTROPHILS % (AUTO) 66.4 %; PLT - PLATELET COUNT 180 10^3/uL (130-450); RED BLOOD COUNT 4.33 10^6/uL (4.70-6.10); RED CELL DISTRIBUTION WIDTH 13.3 % (12.0-15.0); WHITE BLOOD COUNT 5.9 x10^3/uL (4.8-10.8)
[2020-06-03] MEDS: PANTOPRAZOLE 40 MG VIAL IVP SCH (06:24)
[2020-06-03] MEDS: CALCIUM CARBONATE CHEW 500 MG TABLET PO SCH (06:25)
[2020-06-03 06:31] LABS: CALCIUM 8.2 mg/dL (8.5-10.3); CREATININE 1.2 mg/dL (0.6-1.2); POTASSIUM 3.8 mmol/L (3.5-5.0)
[2020-06-03 06:34] LABS: INR 1.9 (0.8-1.2); PT - PROTHROMBIN TIME 20.8 secs (9.9-12.6)
[2020-06-03] MEDS: INSULIN ASPART 300 UNIT/3 ML PEN SUBQ SCH ×2 (08:26→12:49)
[2020-06-03] MEDS: AMIODARONE 200 MG TABLET PO SCH (08:27)
[2020-06-03] MEDS: carvediloL 12.5 MG TABLET PO SCH (08:27)
[2020-06-03] MEDS: TAMSULOSIN 0.4 MG CAPSULE PO SCH (08:28)
[2020-06-03] MEDS: INSULIN GLARGINE 300 UNIT/3 ML PEN SUBQ SCH (08:29)
[2020-06-03] MEDS: ASPIRIN EC 81 MG TABLET PO SCH (08:29)
[2020-06-03] MEDS: polyethylene glycoL 3350 17 GM PACKET PO SCH (08:38)
--- NOTE | 2020-06-03 08:41 | Discharge Plan ---
Discharge Plan Problem Reviewed?: Yes Disposition: Home, Self Care Condition: Good Prescriptions: Warfarin [Coumadin] 5 mg PO 1400 #60 tablet Blood-Glucose Meter [Glucometer] 1 each MC DAILY #1 each Blood Sugar Diagnostic [Glucometer Strips] 1 each MC TID #90 strip Insulin NPH Human [Humulin N] 35 unit SUBQ BID #3 vial Lancets 1 each MC TID #1 pkg Insulin Regular Human [NovoLIN R] 2 - 10 unit SUBQ TIDWM PRN #3 vial PRN Reason: .sliding scale Amiodarone [Pacerone] 200 mg PO DAILY #30 tablet Diet: Diabetic Activity Restrictions: Activity as Tolerated Shower Restrictions: No Driving Restrictions: No Health Concerns: Presented to the hospital with increasing nausea and vomiting. Unfortunately this is a well-known phenomenon to you since you have had DKA several times in the past. Your DKA usually presents as abdominal pain with nausea and vomiting. You also have a known history of cannabis use. Smoking marijuana can cause cyclical vomiting syndrome. We will ask you again to not use any further cannabis at all in the future. Once your DKA resolved on an insulin drip, we changed you over to your usual long-acting insulin and short acting insulin. However, you then developed an irregular heartbeat called atrial fibrillation. Atrial fibrillation can be caused from thyroid disorder, pulmonary embolism, heart attack, or a short sickening the electrical conduction system in your heart. We did a lot of test on you and found you to have a pulmonary embolism. That means you had a blood clot that went to your right heart and then into your lung system. That in turn irritated your heart. You will need to be on blood thinners for the next 3 months. Your insurance company does cover one of the blood thinners. However your share of cost was going to be $230 for Xarelto. As such we opted to put you on the much less expensive alternative called Coumadin. You will also need a medication to control your heart rate called amiodarone. Plan of Treatment: 1. You have a new primary care provider but you do not know if it is a PA, BALANCING MACHINE OPERATOR or MD. They are associated with your clinic since your previous primary care provider has left the area. Please follow with kirsten Kirkland in the next few days. 2. I will be calling kirsten kirkland office to let them know that they need to check your blood work on Coumadin once a day until your blood is thin just enough to prevent further blood clots. The goal we aim for is a number called INR. We want your INR to be between 2 and 3. This morning your INR is 1.9. You are anxious to go home. We think your INR will be 2 tomorrow morning. 3. Until your INR gets to be greater than 2 tomorrow morning, you need to dose yourself with an injection of Lovenox blood thinner 1 time tonight. You have been provided with that dose. 4. We asked you not to drink any alcohol, or to smoke any cannabis in an effort to control your glucose and to prevent further episodes of vomiting, and DKA. We are also asking that you not do any traveling that requires you to sit a long time for the next couple of weeks. You have developed a blood clot that went to your lung. Sitting in a car for prolonged length of time will only cause recurrence of blood clots, and more blood clots in the lungs even if you are on Coumadin. 5. We think that the atrial fibrillation will be a temporary problem. Once the blood clot in your lung dissolves, that your sugar stays normal, your heart rate will go into a normal sinus rhythm. When that happens, you can stop the amiodarone. But you will need to see your doctor on a regular basis and be monitored for that. We would suggest an EKG every other week. Once you are in a regular rhythm, you can stop the amiodarone. 6. We strongly recommend that you follow-up with diabetic education classes. Even though you have had diabetes for a while, you seem to have fallen by the wayside with regards to self-care, dietary compliance, and we think that a few more refresher classes will help. Care Goals: To have less fatigue, less shortness of breath, no recurrence of DKA, and to treat blood clots for the next 3 months. Assessment: Patient understands care goal. But is already manifesting a desire to travel before his INR is stable. He has been warned that he needs to stabilize his pro time and INR, control his heart rate before he goes traveling. No Smoking: If you smoke, Please STOP! Call for help. Follow-up with: Lena Kirkland ARNP [Primary Care Provider] -
[2020-06-03] MEDS ORDERED: ENOXAPARIN 100 MG/ML SYRINGE SUBQ SCH (09:00)
[2020-06-03] MEDS ORDERED: ASCORBIC ACID CHEW 500 MG TABLET PO SCH (09:00)
[2020-06-03] MEDS ORDERED: LOSARTAN 50 MG TABLET PO SCH (09:00)
[2020-06-03 13:20] VITALS: BP 129/81
[2020-06-03] MEDS ORDERED: WARFARIN 5 MG TABLET PO ONE (14:00)
--- NOTE | 2020-06-03 19:19 | DISCHARGE SUMMARY ---
Discharge Summary Admit Date: 05/28/20 Discharge Date: 06/03/20 Discharging Provider: Cristina Geller MD Primary Care Provider: Lena Kirkland DNP Code Status: Attempt Resuscitation Condition at Discharge: Good Discharge Disposition: 01 Home, Self Care - DIAGNOSES Discharge Diagnoses with Status of Each Condition: 1. DKA 2. Acute kidney injury with dehydration 3. Gastroparesis diabeticorum 4. Intractable nausea and vomiting 5. Benign prostatic hypertrophy 6. Hypertension 7. History of coronary artery disease. 8. Mildly elevated troponins 9. Hyperlipidemia 10. New onset atrial fibrillation 11. Pulmonary emboli 12. Chronic use of cannabis 13. hypokalemia - HPI History of Present Illness: Patient is a 64-year-old male with medical history significant for diabetes mellitus type 1, coronary artery disease status post PCI with stent, hypertension, hyperlipidemia, diabetic gastroparesis and GERD who presented to the ED with complaint of nausea and vomiting for the past week. Due to his gastroparesis he has been on Reglan daily. 2 weeks ago he decided to stop taking the Reglan daily. 3 to 4 days ago the nausea and vomiting became more significant and he was unable to keep anything down today so he came to the emergency department for evaluation. He was found to have a blood glucose of 557 with an anion gap of 25. There were moderate serum ketones. As a result he was started on an insulin drip and presented for admission for further management. He also had a troponin of 52. At bedside he denies chest pain, dyspnea, abdominal pain, fever or chills. - Past Medical History Cardiovascular: reports: Hypertension, High cholesterol, PR Respiratory: reports: None Neuro: reports: None, Peripheral neuropathy, Other Endocrine/Autoimmune: reports: Type 1 diabetes, Type 2 diabetes GI: reports: GERD, Other : reports: Benign prostate hypertrophy HEENT: reports: Chronic vision loss, Other Psych: reports: Claustrophobia Musculoskeletal: reports: Osteoarthritis Derm: reports: None MRSA Hx?: No - Past Surgical History General: reports: Appendectomy Ortho: reports: Amputation, Other Cardiovascular: reports: Other - ALLERGIES Allergies/Adverse Reactions: Allergies Allergy/AdvReac Type Severity Reaction Status Date / Time No Known Drug Allergies Allergy Verified 12/06/19 14:42 - MEDICATIONS Home Medications: Ambulatory Orders Medication Instructions Recorded Confirmed Tamsulosin [Flomax] 0.4 mg PO DAILY 06/09/19 05/29/20 Pantoprazole [Protonix] 40 mg PO QDAC #30 tablet 07/28/19 05/29/20 amLODIPine [Norvasc] 5 mg PO DAILY #30 tablet 07/28/19 05/29/20 Aspirin 81 mg PO DAILY 12/07/19 05/29/20 Atorvastatin [Lipitor] 40 mg PO DAILY 12/07/19 05/29/20 Carvedilol [Coreg] 25 mg PO DAILY 12/07/19 05/29/20 Losartan Potassium 50 mg PO DAILY 12/07/19 05/29/20 Metoclopramide [Reglan] 10 mg PO TID PRN 12/07/19 05/29/20 Acetaminophen [Acetaminophen Extra 500 mg PO DAILY 05/29/20 05/29/20 Strength] Ascorbic Acid [Vitamin C] 1,000 mg PO DAILY 05/29/20 05/29/20 Cholecalciferol [Vitamin D3] 5,000 units PO DAILY 05/29/20 05/29/20 Melatonin 10 mg PO HS 05/29/20 05/29/20 Ondansetron Odt [Zofran Odt] 4 mg PO TID PRN 05/29/20 05/29/20 Zinc Gluconate [Zinc] 15 mg PO DAILY 05/29/20 05/29/20 diphenhydrAMINE [Benadryl] 25 mg PO DAILY PRN 05/29/20 05/29/20 Blood Sugar Diagnostic [Glucometer 1 each MC TID #90 strip 05/30/20 Strips] Blood-Glucose Meter [Glucometer] 1 each DAILY #1 each 05/30/20 Insulin NPH Human [Humulin N] 35 unit SUBQ BID #3 vial 05/30/20 Insulin Regular Human [NovoLIN R] 2 - 10 unit SUBQ TIDWM PRN #3 vial 05/30/20 Lancets 1 each TID #1 pkg 05/30/20 Amiodarone [Pacerone] 200 mg PO DAILY #30 tablet 06/03/20 Warfarin [Coumadin] 5 mg PO 1400 #60 tablet 06/03/20 - LABS Result Diagrams: 06/03/20 06:21 06/03/20 06:21
== END 2020-06-03 12:45 | disposition home or self-care (01) | DRG 637 ==
LOC: EDUNIT# → ED 17:00 → ICU 18:49 → MS2 06-02 14:38
PROVIDERS: ADMIT Specialist; ATTEND Specialist
PROC: 02HV33Z Insertion of Infusion Device into Superior Vena Cava, Percutaneous Approach (ICD-10-PCS; principal; 2020-05-28)
DX: E10.10 Type 1 diabetes mellitus with ketoacidosis without coma (principal); I26.99 Other pulmonary embolism without acute cor pulmonale; N17.9 Acute kidney failure, unspecified; E10.43 Type 1 diabetes mellitus with diabetic autonomic (poly)neuropathy; K31.84 Gastroparesis; E78.00 Pure hypercholesterolemia, unspecified; E10.42 Type 1 diabetes mellitus with diabetic polyneuropathy; E86.0 Dehydration; E87.6 Hypokalemia; Z20.822 Contact with and (suspected) exposure to COVID-19; I10 Essential (primary) hypertension; I48.91 Unspecified atrial fibrillation; R77.8 Other specified abnormalities of plasma proteins; I25.10 Atherosclerotic heart disease of native coronary artery without angina pectoris; E78.5 Hyperlipidemia, unspecified; K21.9 Gastro-esophageal reflux disease without esophagitis; N40.0 Benign prostatic hyperplasia without lower urinary tract symptoms; H54.7 Unspecified visual loss; F40.240 Claustrophobia; Z91.128 Patient's intentional underdosing of medication regimen for other reason; T38.3X6A Underdosing of insulin and oral hypoglycemic [antidiabetic] drugs, initial encounter; Z91.19 Patient's noncompliance with other medical treatment and regimen; Z95.5 Presence of coronary angioplasty implant and graft; I25.2 Old myocardial infarction; Z79.4 Long term (current) use of insulin; Z79.82 Long term (current) use of aspirin; Z79.899 Other long term (current) drug therapy; Z72.89 Other problems related to lifestyle; Z89.9 Acquired absence of limb, unspecified
CPT/HCPCS: 36415; 71045; 71275; 80048; 80053; 81001; 82009; 82040; 82803; 82947; 83036; 83605; 83690; 83735; 84100; 84132; 84443; 84484; 85025; 85610; 87150; 87631; 93005; 93306; 99284; 99285; A9270; J0282; J1170; J1650; J1815; J2690; J2765; J7120; Q0162; Q9967; 0202U; 81003; 87086

== ENCOUNTER 2020-06-04 13:08 | Outpatient (CLI) | payer MEDICARE ==
[2020-06-04 20:04] LABS: INR 3.7 (0.8-1.2); PT - PROTHROMBIN TIME 37.7 secs (9.9-12.6)
== END 2020-06-04 13:09 | disposition home or self-care (01) ==
LOC: LAB.S 13:08
PROVIDERS: ATTEND Registered Nurse
DX: I26.99 Other pulmonary embolism without acute cor pulmonale (principal)
CPT/HCPCS: 85610

== ENCOUNTER 2020-06-05 12:28 | Outpatient (CLI) | payer MEDICARE, OTHER | END 2020-06-05 12:29 | disposition home or self-care (01) | LOC: LAB.S 12:28 | PROVIDERS: ATTEND Registered Nurse | DX: I26.99 Other pulmonary embolism without acute cor pulmonale (principal) | CPT/HCPCS: 85610 ==

== ENCOUNTER 2020-06-07 12:03 | Outpatient (CLI) | payer MEDICARE, OTHER | END 2020-06-07 12:04 | disposition home or self-care (01) | LOC: LAB.S 12:03 | PROVIDERS: ATTEND Registered Nurse | DX: I26.99 Other pulmonary embolism without acute cor pulmonale (principal) | CPT/HCPCS: 85610 ==

== ENCOUNTER 2020-06-10 13:39 | Outpatient (CLI) | payer MEDICARE, OTHER | END 2020-06-10 13:40 | disposition home or self-care (01) | LOC: LAB.S 13:39 | PROVIDERS: ATTEND Registered Nurse | DX: I26.99 Other pulmonary embolism without acute cor pulmonale (principal) | CPT/HCPCS: 85610 ==

== ENCOUNTER 2020-06-12 13:33 | Outpatient (CLI) | payer MEDICARE | END 2020-06-12 13:34 | disposition home or self-care (01) | LOC: LAB.S 13:33 | PROVIDERS: ATTEND Internal Medicine | DX: I26.99 Other pulmonary embolism without acute cor pulmonale (principal); I48.91 Unspecified atrial fibrillation; Z79.01 Long term (current) use of anticoagulants | CPT/HCPCS: 85610 ==

== ENCOUNTER 2020-07-15 13:32 | Outpatient (CLI) | payer MEDICARE | END 2020-07-15 13:33 | disposition home or self-care (01) | LOC: LAB.S 13:32 | PROVIDERS: ATTEND Internal Medicine | DX: I26.99 Other pulmonary embolism without acute cor pulmonale (principal); I48.91 Unspecified atrial fibrillation; Z79.01 Long term (current) use of anticoagulants | CPT/HCPCS: 85610 ==

== ENCOUNTER 2020-07-24 13:39 | Outpatient (CLI) | payer MEDICARE | END 2020-07-24 13:40 | disposition home or self-care (01) | LOC: LAB.S 13:39 | PROVIDERS: ATTEND Internal Medicine | DX: I26.99 Other pulmonary embolism without acute cor pulmonale (principal); I48.91 Unspecified atrial fibrillation; Z79.01 Long term (current) use of anticoagulants | CPT/HCPCS: 36416; 85610 ==

== ENCOUNTER 2020-07-30 13:23 | Outpatient (CLI) | payer MEDICARE | END 2020-07-30 13:24 | disposition home or self-care (01) | LOC: LAB.S 13:23 | PROVIDERS: ATTEND Internal Medicine | DX: I26.99 Other pulmonary embolism without acute cor pulmonale (principal); I48.91 Unspecified atrial fibrillation; Z79.01 Long term (current) use of anticoagulants | CPT/HCPCS: 36416; 85610 ==

== ENCOUNTER 2020-08-05 13:24 | Outpatient (CLI) | payer MEDICARE | END 2020-08-05 13:25 | disposition home or self-care (01) | LOC: LAB.S 13:24 | PROVIDERS: ATTEND Internal Medicine | DX: I26.99 Other pulmonary embolism without acute cor pulmonale (principal); I48.91 Unspecified atrial fibrillation; Z79.01 Long term (current) use of anticoagulants | CPT/HCPCS: 36416; 85610 ==

== ENCOUNTER 2020-08-13 15:46 | Outpatient (CLI) | payer MEDICARE | END 2020-08-13 15:47 | disposition home or self-care (01) | LOC: LAB.S 15:46 | PROVIDERS: ATTEND Internal Medicine | DX: I26.99 Other pulmonary embolism without acute cor pulmonale (principal); I48.91 Unspecified atrial fibrillation; Z79.01 Long term (current) use of anticoagulants | CPT/HCPCS: 36416; 85610 ==

== ENCOUNTER 2020-08-23 15:36 | Outpatient (CLI) | payer MEDICARE | END 2020-08-23 15:37 | disposition home or self-care (01) | LOC: LAB.S 15:36 | PROVIDERS: ATTEND Internal Medicine | DX: I26.99 Other pulmonary embolism without acute cor pulmonale (principal); I48.91 Unspecified atrial fibrillation; Z79.01 Long term (current) use of anticoagulants | CPT/HCPCS: 36416; 85610 ==

== ENCOUNTER 2020-08-30 14:23 | Outpatient (CLI) | payer MEDICARE | END 2020-08-30 14:24 | disposition home or self-care (01) | LOC: LAB.S 14:23 | PROVIDERS: ATTEND Internal Medicine | DX: I26.99 Other pulmonary embolism without acute cor pulmonale (principal); Z79.01 Long term (current) use of anticoagulants; I48.91 Unspecified atrial fibrillation | CPT/HCPCS: 36416; 85610 ==

== ENCOUNTER 2020-09-06 16:36 | Outpatient (CLI) | payer MEDICARE | END 2020-09-06 16:37 | disposition home or self-care (01) | LOC: LAB.S 16:36 | PROVIDERS: ATTEND Internal Medicine | DX: I26.99 Other pulmonary embolism without acute cor pulmonale (principal); I48.91 Unspecified atrial fibrillation; Z79.01 Long term (current) use of anticoagulants | CPT/HCPCS: 36416; 85610 ==

== ENCOUNTER 2020-12-04 15:58 | Outpatient (CLI) | payer MEDICARE ==
[2020-12-04 20:29] LABS: BASOPHILS % (AUTO) 0.4 %; EOSINOPHILS # (AUTO) 0.1 10^3/uL (0.0-0.7); EOSINOPHILS % (AUTO) 0.9 %; HCT - HEMATOCRIT 44.2 % (42.0-52.0); HGB - HEMOGLOBIN 14.9 g/dL (14.0-18.0); LYMPHOCYTES # (AUTO) 0.9 10^3/uL (1.5-3.5); LYMPHOCYTES % (AUTO) 17.2 %; MEAN CORPUSCULAR HEMOGLOBIN 32.3 pg (27.0-31.0); MEAN CORPUSCULAR HGB CONC 33.7 g/dL (32.0-36.0); MEAN CORPUSCULAR VOLUME 95.9 fL (80.0-94.0); MEAN PLATELET VOLUME 10.6 fL (7.4-11.4); MONOCYTES # (AUTO) 0.5 10^3/uL (0.0-1.0); MONOCYTES % (AUTO) 9.6 %; NEUTROPHILS # (AUTO) 3.9 10^3/uL (1.5-6.6); NEUTROPHILS % (AUTO) 71.7 %; PLT - PLATELET COUNT 264 10^3/uL (130-450); RED BLOOD COUNT 4.61 10^6/uL (4.70-6.10); RED CELL DISTRIBUTION WIDTH 13.4 % (12.0-15.0); WHITE BLOOD COUNT 5.4 x10^3/uL (4.8-10.8)
[2020-12-04 20:36] LABS: ALBUMIN 4.5 g/dL (3.2-5.5); ALBUMIN/GLOBULIN RATIO 1.6 (1.0-2.2); BILIRUBIN,TOTAL 0.9 mg/dL (0.2-1.0); CALCIUM 9.2 mg/dL (8.5-10.3); CREATININE 1.1 mg/dL (0.6-1.2); POTASSIUM 4.6 mmol/L (3.5-5.0); TOTAL PROTEIN 7.4 g/dL (6.7-8.2)
[2020-12-04 21:04] LABS: ESTIMATED AVERAGE GLUCOSE 146 mg/dL (70-100); HEMOGLOBIN A1c% 6.7 % (4.27-6.07)
== END 2020-12-04 15:59 | disposition home or self-care (01) ==
LOC: LAB.S 15:58
PROVIDERS: ATTEND Internal Medicine
DX: I10 Essential (primary) hypertension (principal); E10.9 Type 1 diabetes mellitus without complications
CPT/HCPCS: 36415; 80053; 83036; 85025

== ENCOUNTER 2021-01-23 01:52 | Outpatient (CLI) | payer MEDICARE, OTHER | END 2021-01-23 01:53 | disposition critical access hospital (66) | LOC: EMS 01:52 | DX: K92.0 Hematemesis (principal); R19.7 Diarrhea, unspecified | CPT/HCPCS: A0425; A0427 ==

== ENCOUNTER 2021-01-23 02:28 | Emergency (ER) | payer MEDICARE, OTHER ==
[2021-01-23] MEDS: LORazepam 2 MG/ML VIAL IVP STA (02:51)
[2021-01-23] MEDS: SODIUM CHLORIDE 0.9% 1,000 ML IV STA (02:51)
[2021-01-23] MEDS: DROPERIDOL 5 MG/2 ML VIAL IVP STA (02:54)
[2021-01-23 03:30] LABS: BASOPHILS % (AUTO) 0.1 %; HCT - HEMATOCRIT 44.1 % (42.0-52.0); HGB - HEMOGLOBIN 14.7 g/dL (14.0-18.0); LYMPHOCYTES # (AUTO) 0.3 10^3/uL (1.5-3.5); LYMPHOCYTES % (AUTO) 3.7 %; MEAN CORPUSCULAR HEMOGLOBIN 30.2 pg (27.0-31.0); MEAN CORPUSCULAR HGB CONC 33.3 g/dL (32.0-36.0); MEAN CORPUSCULAR VOLUME 90.7 fL (80.0-94.0); MEAN PLATELET VOLUME 10.2 fL (7.4-11.4); MONOCYTES # (AUTO) 0.3 10^3/uL (0.0-1.0); MONOCYTES % (AUTO) 3.5 %; NEUTROPHILS # (AUTO) 7.8 10^3/uL (1.5-6.6); NEUTROPHILS % (AUTO) 92.5 %; PLT - PLATELET COUNT 228 10^3/uL (130-450); RED BLOOD COUNT 4.86 10^6/uL (4.70-6.10); RED CELL DISTRIBUTION WIDTH 12.8 % (12.0-15.0); WHITE BLOOD COUNT 8.5 x10^3/uL (4.8-10.8)
[2021-01-23 03:36] LABS: ALBUMIN 4.6 g/dL (3.2-5.5); ALBUMIN/GLOBULIN RATIO 1.6 (1.0-2.2); BILIRUBIN,TOTAL 1.5 mg/dL (0.2-1.0); POTASSIUM 3.8 mmol/L (3.5-5.0); TOTAL PROTEIN 7.5 g/dL (6.7-8.2)
[2021-01-23] MEDS: INSULIN REGULAR HUMAN 100 UNIT/1 ML 10 ML MDV IVP STA (04:09)
--- NOTE | 2021-01-23 04:10 | ED Physician Documentation ---
History of Present Illness - Stated complaint Stated Complaint: N/V/D - Chief complaint Chief Complaint: Abd Pain - History obtained from History obtained from: Patient - Additonal information Additional information: Patient comes emergency department chief complaint of nausea and vomiting that started within the last 24 hours, and. Medics report that the patient has not had any emesis in route. Patient has been afebrile. He has had a mild amount of diarrhea that started today. He is a diabetic, and blood sugar was 349 in route. No fever or chills. Patient denies any abdominal pain. No shortness of breath or cough. No chest pain. No hematemesis. No other complaints at this time. No sick contacts. Review of Systems Ten Systems: 10 systems reviewed and negative Constitutional: reports: Reviewed and negative Eyes: reports: Reviewed and negative Ears: reports: Reviewed and negative Nose: reports: Reviewed and negative Throat: reports: Reviewed and negative Cardiac: reports: Reviewed and negative Respiratory: reports: Reviewed and negative GI: reports: Nausea, Vomiting, Diarrhea : reports: Reviewed and negative Skin: reports: Reviewed and negative Musculoskeletal: reports: Reviewed and negative Neurologic: reports: Reviewed and negative Psychiatric: reports: Reviewed and negative Endocrine: reports: Reviewed and negative Immunocompromised: reports: Reviewed and negative PD PAST MEDICAL HISTORY - Past Medical History Past Medical History: Yes Cardiovascular: Hypertension, High cholesterol, ID Respiratory: None Neuro: None, Peripheral neuropathy, Other Endocrine/Autoimmune: Type 1 diabetes, Type 2 diabetes GI: GERD, Other : Benign prostate hypertrophy HEENT: Chronic vision loss, Other Psych: Claustrophobia Musculoskeletal: Osteoarthritis Derm: None - Past Surgical History Past Surgical History: Yes General: Appendectomy Ortho: Amputation, Other Cardiovascular: Other - Present Medications Home Medications: Ambulatory Orders Medication Instructions Recorded Confirmed Tamsulosin [Flomax] 0.4 mg PO DAILY 06/09/19 05/29/20 Pantoprazole [Protonix] 40 mg PO QDAC #30 tablet 07/28/19 05/29/20 amLODIPine [Norvasc] 5 mg PO DAILY #30 tablet 07/28/19 05/29/20 Aspirin 81 mg PO DAILY 12/07/19 05/29/20 Atorvastatin [Lipitor] 40 mg PO DAILY 12/07/19 05/29/20 Carvedilol [Coreg] 25 mg PO DAILY 12/07/19 05/29/20 Losartan Potassium 50 mg PO DAILY 12/07/19 05/29/20 Metoclopramide [Reglan] 10 mg PO TID PRN 12/07/19 05/29/20 Acetaminophen [Acetaminophen Extra 500 mg PO DAILY 05/29/20 05/29/20 Strength] Ascorbic Acid [Vitamin C] 1,000 mg PO DAILY 05/29/20 05/29/20 Cholecalciferol [Vitamin D3] 5,000 units PO DAILY 05/29/20 05/29/20 Melatonin 10 mg PO HS 05/29/20 05/29/20 Ondansetron Odt [Zofran Odt] 4 mg PO TID PRN 05/29/20 05/29/20 Zinc Gluconate [Zinc] 15 mg PO DAILY 05/29/20 05/29/20 diphenhydrAMINE [Benadryl] 25 mg PO DAILY PRN 05/29/20 05/29/20 Blood Sugar Diagnostic [Glucometer 1 each MC TID #90 strip 05/30/20 Strips] Blood-Glucose Meter [Glucometer] 1 each MC DAILY #1 each 05/30/20 Insulin NPH Human [Humulin N] 35 unit SUBQ BID #3 vial 05/30/20 Insulin Regular Human [NovoLIN R] 2 - 10 unit SUBQ TIDWM PRN #3 vial 05/30/20 Lancets 1 each MC TID #1 pkg 05/30/20 Amiodarone [Pacerone] 200 mg PO DAILY #30 tablet 06/03/20 Warfarin [Coumadin] 5 mg PO 1400 #60 tablet 06/03/20 Ondansetron Odt [Zofran] 4 mg TL Q6H PRN #10 tablet 01/23/21 - Allergies Allergies/Adverse Reactions: Allergies Allergy/AdvReac Type Severity Reaction Status Date / Time No Known Drug Allergies Allergy Verified 01/23/21 02:42 - Social History Does the pt smoke?: Yes Smoking Status: Current every day smoker Does the pt drink ETOH?: No Does the pt have substance abuse?: Yes - Immunizations Immunizations are current?: Yes - POLST Patient has POLST: No POLST Status: Full Code PD ED PE NORMAL - Vitals Vital signs reviewed: Yes - General General: Well developed/nourished, Other (Patient is alert but appears uncomfortable. He is intermittently vomiting small amounts of brownish-green material. No coffee grounds or faizan blood.) - HEENT HEENT: Atraumatic, PERRL, EOMI, Moist mucous membranes - Neck Neck: Supple, no meningeal sign - Cardiac Cardiac: RRR, No murmur - Respiratory Respiratory: No respiratory distress, Clear bilaterally - Abdomen Abdomen: Soft, Non tender, Non distended, Other (Intermittent active vomiting as above.) - Derm Derm: Normal color, Warm and dry, No rash - Extremities Extremities: No deformity, No edema - Neuro Neuro: Alert and oriented X 3 - Psych Psych: Normal mood, Normal affect Results - Vitals Vitals: Vital Signs - 24 hr 01/23/21 01/23/21 01/23/21 02:30 03:05 03:35 Temperature 36.7 C Heart Rate 122 H 98 96 Respiratory 14 15 17 Rate Blood Pressure 218/107 H 107/76 109/69 O2 Saturation 100 94 94 01/23/21 01/23/21 04:15 04:51 Temperature 37.5 C Heart Rate 97 92 Respiratory 15 15 Rate Blood Pressure 124/72 124/72 O2 Saturation 97 94 Oxygen O2 Source Room air - Labs Labs: Laboratory Tests 01/23/21 01/23/21 03:05 03:05 WBC 8.5 RBC 4.86 Hgb 14.7 Hct 44.1 MCV 90.7 MCH 30.2 MCHC 33.3 RDW 12.8 Plt Count 228 MPV 10.2 Neut # (Auto) 7.8 H Lymph # (Auto) 0.3 L [place] # (Auto) 0.3 Eos # (Auto) 0.0 Baso # (Auto) 0.0 Absolute Nucleated RBC 0.00 Nucleated RBC % 0.0 Sodium 135 Potassium 3.8 Chloride 98 L Carbon Dioxide 18 L Anion Gap 19.0 H BUN 22 H Creatinine 1.0 Estimated GFR (MDRD) 75 L Glucose 347 H Calcium 9.0 Total Bilirubin 1.5 H AST 20 ALT 20 Alkaline Phosphatase 86 Total Protein 7.5 Albumin 4.6 Globulin 2.9 Albumin/Globulin Ratio 1.6 Lipase 20 L PD MEDICAL DECISION MAKING - ED course Complexity details: reviewed results, re-evaluated patient, considered differential, d/w patient ED course: The patient was treated symptomatically with IV fluids and droperidol, shortly after which he was found to be resting comfortably in bed. Labs were obtained a nd unremarkable except for an elevated blood glucose at 347 and an anion gap 19. White blood cell count and hemoglobin were normal. The patient had received a full liter point and normal saline and was also given 12 units of regular insulin IV. Repeat POC glucose following this was 240. The patient had been resting comfortably in bed without complaints for 2 hours, and upon reevaluation, vital signs were normal. I discussed with the patient that his work-up does not show any concerning findings and that he is symptomatically drastically improved and stable for discharge home. I advised the patient that I would give him a prescription for Zofran oral dissolving tablets to use at home. The patient became very upset and [place] plan to stay here overnight because his daughter lives in [place] and will not come get him until after her weight workday is done today. The patient feels he should be admitted to the hospital because of this. I did explain to the patient that he does not meet criteria for admission to the hospital and actually, is doing quite well in the emergency department. I expect this to be a self-limited illness. I have advised the patient that there are other modes of transportation to get home, such as the bus, [place] free [place], as well as a taxi service which can take the patient from our door to his. The patient became increasingly argumentative and escalated in the emergency department. He began to state that he was vomiting blood, which he had denied upon arrival,. Additionally, patient's vomitus was observed in the emergency department and never appeared to contain blood. I did discuss this as well as the fact that the patient's hemoglobin is normal with the patient. I advised him that I am happy to treat him symptomatically, and that he is welcome to return to the emergency department if he needs, but that we have ruled out an emergency condition, we have treated him to the point of comfort and drastic improvement in the emergency department, and the time for discharge is calm. We have initially offered to facilitate finding a ride for the patient, but the patient initially refused with great anger, throwing things around in the exam room. He was escorted out to the lobby by staff. I have discussed with him the usual indications for return. Departure - Departure Disposition: 01 Home, Self Care Clinical Impression: Gastroenteritis, Hyperglycemia due to diabetes mellitus Condition: Stable Instructions: ED Gastroenteritis Viral Prescriptions: Ondansetron Odt [Zofran] 4 mg TL Q6H PRN #10 tablet PRN Reason: Nausea / Vomiting Discharge Date/Time: 01/23/21 05:00
[2021-01-23 04:34] VITALS: BP 124/72
== END 2021-01-23 05:00 | disposition home or self-care (01) ==
LOC: EDUNIT# → SUPCPDRO 02:28 → ED 02:28
DX: K52.9 Noninfective gastroenteritis and colitis, unspecified (principal); E10.65 Type 1 diabetes mellitus with hyperglycemia; E10.42 Type 1 diabetes mellitus with diabetic polyneuropathy; Z79.4 Long term (current) use of insulin; I10 Essential (primary) hypertension; F17.200 Nicotine dependence, unspecified, uncomplicated
CPT/HCPCS: 36415; 80053; 83690; 85025; 96361; 96374; 96375; 99284; 99285; J1815; J2060

== ENCOUNTER 2021-01-23 15:46 | Inpatient (IN) | payer MEDICARE, OTHER ==
[2021-01-23 16:53] LABS: BASOPHILS % (AUTO) 0.1 %; HCT - HEMATOCRIT 47.5 % (42.0-52.0); HGB - HEMOGLOBIN 16.4 g/dL (14.0-18.0); LYMPHOCYTES # (AUTO) 0.4 10^3/uL (1.5-3.5); LYMPHOCYTES % (AUTO) 2.9 %; MEAN CORPUSCULAR HEMOGLOBIN 30.7 pg (27.0-31.0); MEAN CORPUSCULAR HGB CONC 34.5 g/dL (32.0-36.0); MEAN CORPUSCULAR VOLUME 88.8 fL (80.0-94.0); MEAN PLATELET VOLUME 9.9 fL (7.4-11.4); MONOCYTES # (AUTO) 0.6 10^3/uL (0.0-1.0); MONOCYTES % (AUTO) 3.8 %; NEUTROPHILS # (AUTO) 13.3 10^3/uL (1.5-6.6); NEUTROPHILS % (AUTO) 92.8 %; PLT - PLATELET COUNT 293 10^3/uL (130-450); RED BLOOD COUNT 5.35 10^6/uL (4.70-6.10); RED CELL DISTRIBUTION WIDTH 13.1 % (12.0-15.0); WHITE BLOOD COUNT 14.4 x10^3/uL (4.8-10.8)
[2021-01-23 16:59] LABS: VBG BASE EXCESS -3.5 mmol/L (-2 - +2); VBG HCO3 18.6 mmol/L (23-28); VBG OXYGEN SATURATION 62.8 % (60-80); VBG PCO2 27.3 mmHg (41-51); VBG PH 7.451 (7.31-7.41); VBG PO2 29.3 mmHg (25-47); VBG TOTAL CO2 19.4 mmol/L (24-29)
[2021-01-23 17:08] LABS: ALBUMIN 5.3 g/dL (3.2-5.5); ALBUMIN/GLOBULIN RATIO 1.7 (1.0-2.2); ALKALINE PHOSPHATASE 101 IU/L (42-121); ALT ALANINE AMINOTRANSFERASE 24 IU/L (10-60); AST ASPARTATE AMINOTRANSFERASE 36 IU/L (10-42); BUN - BLOOD UREA NITROGEN 31 mg/dL (6-20); CALCIUM 10.2 mg/dL (8.5-10.3); CARBON DIOXIDE - CO2 21 mmol/L (21-32); CHLORIDE 100 mmol/L (101-111); CREATININE 1.3 mg/dL (0.6-1.2); GFR - MDRD 55 (>89); GLUCOSE 366 mg/dL (70-100); MAGNESIUM 1.9 mg/dL (1.7-2.8); POTASSIUM 3.9 mmol/L (3.5-5.0); SODIUM 140 mmol/L (135-145); TOTAL PROTEIN 8.5 g/dL (6.7-8.2)
[2021-01-23 17:16] LABS: KETONES, SERUM (ACETEST) NEGATIVE (NEGATIVE)
[2021-01-23] MEDS ORDERED: SODIUM CHLORIDE 0.9% 1,000 ML IV STA ×2 (17:49→18:00)
[2021-01-23] MEDS ORDERED: ONDANSETRON 4 MG/2 ML VIAL IVP STA ×2 (17:59→19:47)
[2021-01-23] MEDS ORDERED: METOCLOPRAMIDE 10 MG/2 ML VIAL IVP STA (18:00)
--- NOTE | 2021-01-23 18:13 | ED Physician Documentation ---
History of Present Illness - Stated complaint Stated Complaint: VOMIT - Chief complaint Chief Complaint: Abd Pain - Additonal information Additional information: 65-year-old diabetic male presents to the emergency department for evaluation of uncontrolled vomiting. Seen in this emergency [facility] last night for similar. He had hyperglycemia but no other findings to suggest DKA. No leukocytosis. Patient improved with IV fluids and antiemetic and was discharged home. He reports that at 10 AM despite taking the Zofran and Reglan at home he began vomiting uncontrollably. He is now dry heaving. Pt is worried as he has not been able to take or keep down any of his daily medications This gentleman does have a history of previous cardiac stenting and is on Xarelto daily for that. He his diabetes is typically controlled with 50 units of Lantus each day as well as insulin regular sliding scale. Denying chest pain or shortness of air. Has had some mild nonbloody diarrhea. Denies dysuria urgency frequency. No fevers. He reports that he very rarely uses cannabis last used about 5 days ago. Review of Systems Constitutional: denies: Fever, Chills Eyes: reports: Reviewed and negative Nose: reports: Reviewed and negative Throat: reports: Reviewed and negative Cardiac: reports: Reviewed and negative Respiratory: reports: Reviewed and negative GI: reports: Nausea, Vomiting, Diarrhea. denies: Abdominal Pain : denies: Dysuria, Frequency, Hesitancy Skin: reports: Reviewed and negative Musculoskeletal: reports: Reviewed and negative PD PAST MEDICAL HISTORY - Past Medical History Cardiovascular: Hypertension, High cholesterol, HI Respiratory: None Neuro: None, Peripheral neuropathy, Other Endocrine/Autoimmune: Type 1 diabetes, Type 2 diabetes GI: GERD, Other : Benign prostate hypertrophy HEENT: Chronic vision loss, Other Psych: Claustrophobia Musculoskeletal: Osteoarthritis Derm: None - Past Surgical History Past Surgical History: Yes General: Appendectomy Ortho: Amputation, Other Cardiovascular: Other - Present Medications Home Medications: Ambulatory Orders Medication Instructions Recorded Confirmed Tamsulosin [Flomax] 0.4 mg PO DAILY 06/09/19 05/29/20 Pantoprazole [Protonix] 40 mg PO QDAC #30 tablet 07/28/19 05/29/20 amLODIPine [Norvasc] 5 mg PO DAILY #30 tablet 07/28/19 05/29/20 Aspirin 81 mg PO DAILY 12/07/19 05/29/20 Atorvastatin [Lipitor] 40 mg PO DAILY 12/07/19 05/29/20 Carvedilol [Coreg] 25 mg PO DAILY 12/07/19 05/29/20 Losartan Potassium 50 mg PO DAILY 12/07/19 05/29/20 Metoclopramide [Reglan] 10 mg PO TID PRN 12/07/19 05/29/20 Acetaminophen [Acetaminophen Extra 500 mg PO DAILY 05/29/20 05/29/20 Strength] Ascorbic Acid [Vitamin C] 1,000 mg PO DAILY 05/29/20 05/29/20 Cholecalciferol [Vitamin D3] 5,000 units PO DAILY 05/29/20 05/29/20 Melatonin 10 mg PO HS 05/29/20 05/29/20 Ondansetron Odt [Zofran Odt] 4 mg PO TID PRN 05/29/20 05/29/20 Zinc Gluconate [Zinc] 15 mg PO DAILY 05/29/20 05/29/20 diphenhydrAMINE [Benadryl] 25 mg PO DAILY PRN 05/29/20 05/29/20 Blood Sugar Diagnostic [Glucometer 1 each MC TID #90 strip 05/30/20 Strips] Blood-Glucose Meter [Glucometer] 1 each MC DAILY #1 each 05/30/20 Insulin NPH Human [Humulin N] 35 unit SUBQ BID #3 vial 05/30/20 Insulin Regular Human [NovoLIN R] 2 - 10 unit SUBQ TIDWM PRN #3 vial 05/30/20 Lancets 1 each MC TID #1 pkg 05/30/20 Amiodarone [Pacerone] 200 mg PO DAILY #30 tablet 06/03/20 Warfarin [Coumadin] 5 mg PO 1400 #60 tablet 06/03/20 Ondansetron Odt [Zofran] 4 mg TL Q6H PRN #10 tablet 01/23/21 - Allergies Allergies/Adverse Reactions: Allergies Allergy/AdvReac Type Severity Reaction Status Date / Time No Known Drug Allergies Allergy Verified 01/23/21 15:55 - Social History Does the pt smoke?: Yes Smoking Status: Current every day smoker Does the pt drink ETOH?: No Does the pt have substance abuse?: Yes - Immunizations Immunizations are current?: Yes - POLST Patient has POLST: No POLST Status: Full Code PD ED PE EXPANDED - General General: Alert - Cardiac Cardiac: Regular Rate, Murmur Present, Radial strong equal, Pedal strong equal, Cap refill < 2 sec - Respiratory Respiratory: Clear to ausultation shauna. No: Distress, Labored - Abdomen Abdomen: Normal Bowel sounds. No: Tender to palpation - Extremities Extremities: Normal. No: Deformity, Tenderness - Neuro Neuro: Alert and Oriented X 3, CNII-XII intact - GCS Eye Opening: Spontaneous Motor: Obeys Commands Verbal: Oriented Total: 15 Results - Vitals Vitals: Vital Signs - 24 hr 01/23/21 01/23/21 01/23/21 15:55 18:29 20:00 Temperature 36.5 C 36.6 C 36.8 C Heart Rate 100 102 H 107 H Respiratory 20 12 16 Rate Blood Pressure 190/100 H 126/80 201/91 H O2 Saturation 98 97 95 01/23/21 20:30 Temperature Heart Rate 94 Respiratory 16 Rate Blood Pressure 134/92 H O2 Saturation 98 Oxygen O2 Source Room air - EKG (time done) 2115 Rate: Rate (enter#) (115) Rhythm: Sinus tachycardia [place]: Normal Intervals: Prolonged QT Ischemia: Non specific changes Compare to prior EKG: Changed from prior EKG (, but essentially unchanged) Computer interpretation: Agree with computer - Labs Labs: Laboratory Tests 01/23/21 01/23/21 01/23/21 16:47 16:47 16:47 WBC 14.4 H RBC 5.35 Hgb 16.4 Hct 47.5 MCV 88.8 MCH 30.7 MCHC 34.5 RDW 13.1 Plt Count 293 MPV 9.9 Neut # (Auto) 13.3 H Lymph # (Auto) 0.4 L [place] # (Auto) 0.6 Eos # (Auto) 0.0 Baso # (Auto) 0.0 Absolute Nucleated RBC 0.00 Nucleated RBC % 0.0 VBG pH 7.451 H VBG pCO2 27.3 L VBG pO2 29.3 VBG HCO3 18.6 L VBG Total CO2 19.4 L VBG O2 Saturation 62.8 VBG Base Excess -3.5 L Sodium 140 Potassium 3.9 Chloride 100 L Carbon Dioxide 21 Anion Gap 19.0 H BUN 31 H Creatinine 1.3 H Estimated GFR (MDRD) 55 L Glucose 366 H POC Whole Bld Glucose Calcium 10.2 Magnesium 1.9 Total Bilirubin 2.0 H AST 36 ALT 24 Alkaline Phosphatase 101 B-Natriuretic Peptide Total Protein 8.5 H Albumin 5.3 Globulin 3.2 Albumin/Globulin Ratio 1.7 TSH Urine Color Urine Clarity Urine pH Ur Specific [place] Urine Protein Urine Glucose (UA) Urine Ketones Urine Occult Blood Urine Nitrite Urine Bilirubin Urine Urobilinogen Ur Leukocyte Esterase Urine RBC Urine WBC Ur Squamous Epith Cells Urine Bacteria Urine Casts Ur Microscopic Review Urine Culture Comments Urine Opiates Screen Ur Oxycodone Screen Urine Methadone Screen Ur Propoxyphene Screen Ur Barbiturates Screen Ur Tricyclics Screen Ur Phencyclidine Scrn Ur Amphetamine Screen U Methamphetamines Scrn U Benzodiazepines Scrn Urine Cocaine Screen U Cannabinoids Screen Serum Ketones NEGATIVE 01/23/21 01/23/21 01/23/21 16:47 16:47 19:12 WBC RBC Hgb Hct MCV MCH MCHC RDW Plt Count MPV Neut # (Auto) Lymph # (Auto) [place] # (Auto) Eos # (Auto) Baso # (Auto) Absolute Nucleated RBC Nucleated RBC % VBG pH VBG pCO2 VBG pO2 VBG HCO3 VBG Total CO2 VBG O2 Saturation VBG Base Excess Sodium Potassium Chloride Carbon Dioxide Anion Gap BUN Creatinine Estimated GFR (MDRD) Glucose POC Whole Bld Glucose Calcium Magnesium Total Bilirubin AST ALT Alkaline Phosphatase B-Natriuretic Peptide 126 H Total Protein Albumin Globulin Albumin/Globulin Ratio TSH 2.58 Urine Color YELLOW Urine Clarity CLEAR Urine pH 5.5 Ur Specific [place] 1.025 Urine Protein 100 H Urine Glucose (UA) >=1000 H Urine Ketones >=80 H Urine Occult Blood MODERATE H Urine Nitrite NEGATIVE Urine Bilirubin NEGATIVE Urine Urobilinogen 0.2 (NORMAL) Ur Leukocyte Esterase NEGATIVE Urine RBC 0-5 Urine WBC 0-3 Ur Squamous Epith Cells RARE Squamous Urine Bacteria Rare Urine Casts 0-2 Hyaline Casts Ur Microscopic Review INDICATED Urine Culture Comments NOT INDICATED Urine Opiates Screen Ur Oxycodone Screen Urine Methadone Screen Ur Propoxyphene Screen Ur Barbiturates Screen Ur Tricyclics Screen Ur Phencyclidine Scrn Ur Amphetamine Screen U Methamphetamines Scrn U Benzodiazepines Scrn Urine Cocaine Screen U Cannabinoids Screen Serum Ketones 01/23/21 01/23/21 19:12 20:14 WBC RBC Hgb Hct MCV MCH MCHC RDW Plt Count MPV Neut # (Auto) Lymph # (Auto) [place] # (Auto) Eos # (Auto) Baso # (Auto) Absolute Nucleated RBC Nucleated RBC % VBG pH VBG pCO2 VBG pO2 VBG HCO3 VBG Total CO2 VBG O2 Saturation VBG Base Excess Sodium Potassium Chloride Carbon Dioxide Anion Gap BUN Creatinine Estimated GFR (MDRD) Glucose POC Whole Bld Glucose 267 H Calcium Magnesium Total Bilirubin AST ALT Alkaline Phosphatase B-Natriuretic Peptide Total Protein Albumin Globulin Albumin/Globulin Ratio TSH Urine Color Urine Clarity Urine pH Ur Specific [place] Urine Protein Urine Glucose (UA) Urine Ketones Urine Occult Blood Urine Nitrite Urine Bilirubin Urine Urobilinogen Ur Leukocyte Esterase Urine RBC Urine WBC Ur Squamous Epith Cells Urine Bacteria Urine Casts Ur Microscopic Review Urine Culture Comments Urine Opiates Screen NEGATIVE Ur Oxycodone Screen NEGATIVE Urine Methadone Screen NEGATIVE Ur Propoxyphene Screen NEGATIVE Ur Barbiturates Screen NEGATIVE Ur Tricyclics Screen NEGATIVE Ur Phencyclidine Scrn NEGATIVE Ur Amphetamine Screen NEGATIVE U Methamphetamines Scrn NEGATIVE U Benzodiazepines Scrn NEGATIVE Urine Cocaine Screen NEGATIVE U Cannabinoids Screen POSITIVE H Serum Ketones - Rads (name of study) CT abd Radiology: Final report received (Pericardial effusion. Prominent size of foreshortened appendix. Differentials include normal variation, mild early appendicitis, and developing mucocele. Small hiatal hernia.) CXR Radiology: EMP read indepedently (No findings suggestive of congestive heart failure cardiac enlargement.) PD MEDICAL DECISION MAKING - ED course Complexity details: reviewed results, re-evaluated patient, considered differential, d/w patient ED course: 65-year-old male who has a history of diabetes as well as previous coronary artery stenting on Xarelto presents to the emergency department for evaluation of uncontrolled vomiting which began about 48 hours ago. Seen in this emergency department last night. He was able to be discharged home after receiving IV fluids and antiemetic. However when he woke up early this a.m. around 10:00 he began vomiting uncontrollably thus he presents to the ER. He has been hospitalized in the past for uncontrolled nausea and vomiting as well as hypertensive urgency. Patient was initially trialed with 2 L of IV fluid as well as Reglan and Zofran which did control the nausea and vomiting. He was trialed on clear liquids but began vomiting thereafter. Thus we supplemented him again with some droperidol which improved the nausea but again he could not tolerate liquids. He was given some Zofran and again vomited. Patient admits to cannabis use about 5 days ago and none since. Urine drug screen was positive for cannabinoids. Screening labs do show a moderate leukocytosis in contrast to labs obtained yesterday. No significant anemia. He is noted to have a mildly elevated BUN and creatinine consistent with the uncontrolled nausea and vomiting. Urine does not show signs of infection though there is some ketones. Given the uncontrolled vomiting despite [address] doses of antiemetic a CT of the abdomen was completed. It does show a moderately enlarged appendix however he has no lower abdominal pain elicited on exam. This may be a normal variant. CT does however show a moderate sized pericardial effusion which is new for this patient. Last echo in May 2020 was essentially normal and no effusion was noted at that time. Patient screening EKG today in the emergency department does show some tachycardia however this was completed shortly after vomiting. However there are no changes to suggest acute ischemia or a pericardial effusion. We did then obtain BNP which was not markedly elevated. CXR without findings to suggest CHF. Troponin and TSH are pending I discussed this patient with hospitalist Dr. Geller who agreed to admit pt on observation status for further evaluation adn tx of uncontrolled n/v. Pt was made aware of plan for observation admit status Departure - Departure Disposition: ED Place in Observation Clinical Impression: Pericardial effusion without cardiac tamponade, Poorly controlled diabetes mellitus Vomiting Qualifiers: Vomiting type: unspecified Vomiting Intractability: intractable Nausea presence: with nausea Qualified Code(s): R11.2 - Nausea with vomiting, unspecified Leukocytosis Qualifiers: Leukocytosis type: unspecified Qualified Code(s): D72.829 - Elevated white blood cell count, unspecified
[2021-01-23] MEDS ORDERED: DROPERIDOL 5 MG/2 ML VIAL IVP STA (19:27)
[2021-01-23] MEDS ORDERED: INSULIN REGULAR HUMAN 100 UNIT/1 ML 10 ML MDV IVP STA (19:28)
[2021-01-23 19:33] LABS: BILIRUBIN,URINE NEGATIVE (NEGATIVE); GLUCOSE, URINE (UA) >=1000 mg/dL (NEGATIVE); KETONES,URINE (UA) >=80 mg/dL (NEGATIVE); LEUKOCYTE ESTERASE, URINE NEGATIVE (NEGATIVE); NITRITE,URINE NEGATIVE (NEGATIVE); OCCULT BLOOD,URINE MODERATE (NEGATIVE); PH,URINE 5.5 PH (5.0-7.5); PROTEIN,URINE 100 mg/dL (NEGATIVE); UROBILINOGEN,URINE 0.2 (NORMAL) E.U./dL (NORMAL)
[2021-01-23 19:35] LABS: CLARITY,URINE CLEAR (CLEAR)
[2021-01-23 19:44] LABS: BACTERIA,URINE Rare /HPF (None Seen); RBC,URINE 0-5 /HPF (0-5); SQUAMOUS EPITHELIAL CELL,UR RARE Squamous (<= Few); WBC,URINE 0-3 /HPF (0-3)
[2021-01-23] MEDS ORDERED: METOPROLOL 5 MG/5 ML VIAL IVP STA (19:45)
[2021-01-23] MEDS ORDERED: IOVERSOL 320 100 ML VIAL IVP ONE ×2 (19:50→22:33)
[2021-01-23 20:19] LABS: MUDS CUTOFF CONCENTRATIONS CUTOFF CONC BELOW:
[2021-01-23 20:35] LABS: THC CANNABINOID SCREEN, URINE POSITIVE (NEGATIVE)
[2021-01-23 20:36] LABS: AMPHETAMINE SCREEN,URINE NEGATIVE (NEGATIVE); BARBITURATE SCREEN,UR NEGATIVE (NEGATIVE); BENZODIAZEPINES SCREEN, URINE NEGATIVE (NEGATIVE); COCAINE SCREEN URINE NEGATIVE (NEGATIVE); METHADONE SCREEN, URINE NEGATIVE (NEGATIVE); METHAMPHETAMINES SCREEN, URINE NEGATIVE (NEGATIVE); OPIATE SCREEN, URINE NEGATIVE (NEGATIVE); OXYCODONE SCREEN, URINE NEGATIVE (NEGATIVE); PROPOXYPHENE SCREEN, URINE NEGATIVE (NEGATIVE); TRICYCLIC ANTIDEPRESSANT,URINE NEGATIVE (NEGATIVE)
--- NOTE | 2021-01-23 20:58 | CT Report ---
PROCEDURE: Abdomen/Pelvis W INDICATIONS: uncontrolled vomiting, DM CONTRAST: IV CONTRAST: Optiray 320 ml: 100 PO CONTRAST: *NO PO CONTRAST TECHNIQUE: After the administration of IV contrast, 5 mm thick sections acquired from the diaphragms to the symp hysis. 5 mm thick coronal and sagittal reformats were acquired. For radiation dose reduction, the f ollowing was used: automated exposure control, adjustment of mA and/or kV according to patient size. COMPARISON: None. FINDINGS: Image quality: Excellent. ABDOMEN: Lung bases: Lung bases are clear. Heart size is normal. Moderate pericardial effusion. Solid organs: Liver and spleen are normal in size and enhancement. Gallbladder is within normal [place] its Biliary system is non dilated. Pancreas enhances normally. No adrenal nodules. Kidneys demons trate normal size and enhancement, without hydronephrosis. Peritoneum and bowel: Small hiatal hernia. Bowel loops demonstrate normal wall thickness and caliber . No free fluid or air. Appendix is foreshortened by demonstrates mild enlargement and mural thicke shaji, measuring roughly 14 mm in diameter. No surrounding fat stranding is present. Nodes and vessels: No retroperitoneal or mesenteric adenopathy by size criteria. Aorta and inferior vena cava are normal in size. Miscellaneous: No ventral hernias. PELVIS: Genitourinary: Bladder wall thickness is normal. Miscellaneous: No inguinal hernias or adenopathy. Bones: No suspicious bony lesions. No vertebral body compression fractures. IMPRESSION: 1. Pericardial effusion. 2. Prominent size of foreshortened appendix. Differential considerations include normal variation, mi ld/early appendicitis, and developing mucocele. Close clinical follow-up is recommended with repeat i maging, if clinically warranted. Nonemergent surgical consultation recommended. 3. Small hiatal hernia. Reviewed by: Camilo Esparza MD on 01/23/2021 8:57 PM PDT Approved by: Camilo Esparza MD on 01/23/2021 8:57 PM PDT Station ID: [id number]
[2021-01-23] MEDS ORDERED: ONDANSETRON ODT 4 MG TABLET TL PRN (21:51)
[2021-01-23] MEDS ORDERED: ACETAMINOPHEN 325 MG TABLET PO PRN (21:51)
[2021-01-23 22:18] LABS: B. PARAPERTUSSIS- RESP PCR PAN NOT DETECTED; B. PERTUSSIS- RESP PCR PANEL NOT DETECTED; C. PNEUMONIAE- RESP PCR PANEL NOT DETECTED; CORONAVIRUS 229E-RESP PCR NOT DETECTED; CORONAVIRUS HKU1-RESP PCR NOT DETECTED; CORONAVIRUS NL63-RESP PCR NOT DETECTED; CORONAVIRUS OC43-RESP PCR NOT DETECTED; HUMAN METAPNEUMOVIRUS NOT DETECTED; INFLUENZA A- RESP PCR PANEL NOT DETECTED; INFLUENZA B - RESP PCR PANEL NOT DETECTED; M. PNEUMONIAE- RESP PCR PANEL NOT DETECTED; PARAINFLUENZA VIRUS 1 NOT DETECTED; PARAINFLUENZA VIRUS 2 NOT DETECTED; PARAINFLUENZA VIRUS 3 NOT DETECTED; PARAINFLUENZA VIRUS 4 NOT DETECTED; RHINOVIRUS/ENTEROVIRUS NOT DETECTED; RSV- RESP PCR PANEL NOT DETECTED; SARS-CoV-2 -RESP PCR PANEL NOT DETECTED
[2021-01-23] MEDS ORDERED: hydrALAZINE INJ 20 MG/ML VIAL IVP ONE (22:34)
[2021-01-23] MEDS ORDERED: hydrALAZINE INJ 20 MG/ML VIAL IVP PRN (22:34)
[2021-01-23] MEDS: SODIUM CHLORIDE FLUSH 0.9% 10 ML SYRINGE IVP SCH (22:35)
[2021-01-23] MEDS: LACTATED RINGERS 1,000 ML IV SCH (22:35)
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
[2021-01-23] MEDS: METOCLOPRAMIDE 10 MG/2 ML VIAL IVP SCH ×2 (22:57→23:26)
[2021-01-23] MEDS ORDERED: carvediloL 12.5 MG TABLET PO SCH (23:00)
[2021-01-23] MEDS: INSULIN REGULAR HUMAN 300 UNIT/3 ML VIAL SUBQ SCH (23:24)
[2021-01-23] MEDS: PANTOPRAZOLE 40 MG VIAL IVP SCH (23:24)
[2021-01-24] MEDS: ONDANSETRON 4 MG/2 ML VIAL IVP PRN ×4 (02:55→20:39)
[2021-01-24 03:17] LABS: BASOPHILS % (AUTO) 0.1 %; HCT - HEMATOCRIT 47.2 % (42.0-52.0); HGB - HEMOGLOBIN 15.5 g/dL (14.0-18.0); LYMPHOCYTES # (AUTO) 0.9 10^3/uL (1.5-3.5); LYMPHOCYTES % (AUTO) 8.1 %; MEAN CORPUSCULAR HEMOGLOBIN 30.6 pg (27.0-31.0); MEAN CORPUSCULAR HGB CONC 32.8 g/dL (32.0-36.0); MEAN CORPUSCULAR VOLUME 93.3 fL (80.0-94.0); MONOCYTES % (AUTO) 8.8 %; NEUTROPHILS # (AUTO) 9.4 10^3/uL (1.5-6.6); NEUTROPHILS % (AUTO) 82.6 %; PLT - PLATELET COUNT 203 10^3/uL (130-450); RED BLOOD COUNT 5.06 10^6/uL (4.70-6.10); RED CELL DISTRIBUTION WIDTH 13.2 % (12.0-15.0); WHITE BLOOD COUNT 11.4 x10^3/uL (4.8-10.8)
[2021-01-24 03:21] LABS: CALCIUM 9.2 mg/dL (8.5-10.3); CREATININE 1.1 mg/dL (0.6-1.2); POTASSIUM 3.4 mmol/L (3.5-5.0)
[2021-01-24] MEDS: METOCLOPRAMIDE 10 MG/2 ML VIAL IVP SCH ×4 (06:29→23:51)
[2021-01-24] MEDS: INSULIN REGULAR HUMAN 300 UNIT/3 ML VIAL SUBQ SCH ×4 (06:35→23:57)
--- NOTE | 2021-01-24 07:49 | PHARMACY PROGRESS NOTE ---
- Best Possible Medication History Admit Date and Time: 01/23/212150 Processed by: Pharmacy Medication History completed: Yes Patient Interview: Completed Secondary Source(s): Physician records, Pharmacy records, Insurance records As the person ultimately responsible for medication therapy, providers are able to order a medication from an existing home medication list in [facility] via the "Reconcile Routine" prior to Confirmation of that medication by customer support representative. Such practice is discouraged except when the physician, in their clinical judgment, deems that a medical need exists for a medication without regard to previous use.
[2021-01-24] MEDS: LACTATED RINGERS 1,000 ML IV SCH ×2 (07:59→20:38)
[2021-01-24] MEDS ORDERED: POTASSIUM CHLORIDE 20 MEQ/15 ML UDC PO SCH (08:00)
[2021-01-24] MEDS: TAMSULOSIN 0.4 MG CAPSULE PO SCH (08:59)
[2021-01-24] MEDS: amLODIPine 5 MG TABLET PO SCH (08:59)
[2021-01-24] MEDS: SODIUM CHLORIDE FLUSH 0.9% 10 ML SYRINGE IVP SCH ×2 (09:00→15:55)
[2021-01-24] MEDS: carvediloL 12.5 MG TABLET PO SCH ×2 (09:00→20:39)
[2021-01-24] MEDS: PANTOPRAZOLE 40 MG VIAL IVP SCH ×2 (09:00→20:39)
--- NOTE | 2021-01-24 09:25 | XRAY Report ---
PROCEDURE: Chest 1 View X-Ray INDICATIONS: chest pain TECHNIQUE: One view of the chest was acquired. Images were made available for interpretation on at roughly 0915 hours. COMPARISON: None available at time of dictation. FINDINGS: Surgical changes and devices: None. Lungs and pleura: No pleural effusions or pneumothorax. Lungs are clear. Mediastinum: Mediastinal contours appear normal. Heart size is normal. Bones and chest wall: No suspicious bony lesions. Overlying soft tissues appear unremarkable. IMPRESSION: No acute process. Reviewed by: Camilo Esparza MD on 01/24/2021 9:23 AM PDT Approved by: Camilo Espazra MD on 01/24/2021 9:23 AM PDT Station ID: [id number]
[2021-01-24] MEDS ORDERED: APIXABAN 5 MG TABLET PO SCH (11:00)
[2021-01-24] MEDS: POTASSIUM CHLOR 10 MEQ/100 ML 10 MEQ/100 ML BAG IV SCH ×2 (11:34→13:22)
[2021-01-24] MEDS: APIXABAN 5 MG TABLET PO SCH ×2 (13:23→20:39)
--- NOTE | 2021-01-24 15:29 | PROVIDER PROGRESS NOTE ---
Assessment/Plan - Problem List (1) Intractable nausea and vomiting Assessment/Plan: Patient is still nauseated and had overnight vomiting, still needing anti- emetics and to see if he will tolerate oral intake. In addition, he is very dehydrated per the Echo done today, therefore he needs iv fluids at a high rate, which he is unable to take by mouth yet. Will admit to Inpatient status. Continue prn iv ant-emetics. (2) Gastroparesis diabeticorum Assessment/Plan: He has gastroparesis from diabetes and probably his use of marijuana adds to his recurrences of nausea and vomiting. Continue with antiemetics as needed and his diabetic management (3) IDDM (insulin dependent diabetes mellitus) Assessment/Plan: This patient took Lantus 50 units every afternoon but tells me that because he forgot it 1 evening, he switched to taking it in the morning for the last 3 days. Glu here is in 200's We will resume a Lantus dose at night again but will decrease from 50 units to 30 units because of his poor p.o. intake. We will continue with D5 in his peripheral IV to avoid hypoglycemia. Continue with fingerstick glucose checks and sliding scale insulin coverage. (4) Hypertension, uncontrolled Assessment/Plan: We continued his home doses of carvedilol and amlodipine. Blood pressure is intermittently as high as 212 systolic, possibly slightly due to pain IV metoprolol every 6 hours has been ordered if needed. IV hydralazine daily has been ordered, will increase this to every 6 hours if needed for extreme blood pressure elevations. (5) Pericardial effusion without cardiac tamponade Assessment/Plan: The last Echo showed a small pericardial effusion. The CT scan of the abdomen remarked on a moderate pericardial effusion being present. Echo was therefore obtained which shows a loculated small pericardial effusion laterally and around the RV. This is trivial/small and there are no signs of tamponade. (6) Coronary artery disease Assessment/Plan: This patient underwent coronary angiography in August 2019, received a stent[facility]. Continue with his post-[place] oral meds (7) BPH (benign prostatic hyperplasia) Assessment/Plan: Continue with his home meds for managing BPH (8) Afib Assessment/Plan: This patient has a history of Afib, DVT and PE in 06/16. For this he had been put on Warfarin then Xarelto. As per our pharmacist (Isidro) reviewing his medications that were picked up, he was started on Eliquis and the PCP's (Dr Logan's) office note from 07/15/20 stated that the patient will need anticoagulation lifelong due to having Atrial fib. He is currently in NSR per EKG. The patient confirms for me that he has been taking Eliquis twice a day. We will continue with his usual home dose of Eliquis while here. We are continuing his B-norberto. - Current Meds Current Meds: Current Medications Generic Name Dose Route Start Last Admin Trade Name Freq PRN Reason Stop Dose Admin Amlodipine Besylate 5 mg 01/24/21 09:00 01/24/21 08:59 Amlodipine 5 Mg Tablet PO 5 mg DAILY NATHANIEL Administration Apixaban 5 mg 01/24/21 13:00 01/24/21 13:23 Apixaban 5 Mg Tablet PO 5 mg BID NATHANIEL Administration Carvedilol 12.5 mg 01/24/21 09:00 01/24/21 09:00 Carvedilol 12.5 Mg Tablet PO 12.5 mg BID NATHANIEL Administration Hydralazine HCl 10 mg 01/23/21 22:34 01/24/21 06:51 Hydralazine Inj 20 Mg/Ml Vial IVP 10 mg DAILY PRN Administration Hypertensive Emergency Lactated Ringer's 1,000 mls @ 100 mls/hr 01/23/21 22:00 01/24/21 07:59 Lr IV 100 mls/hr .Q10H NATHANIEL Administration Insulin Human Regular 1 - 9 unit 01/24/21 00:00 01/24/21 11:38 Insulin Regular Human 300 Unit/3 Ml Vial SUBQ 5 unit Q6HR NATHANIEL Administration Protocol Metoclopramide HCl 5 mg 01/23/21 22:36 01/24/21 11:34 Metoclopramide 10 Mg/2 Ml Vial IVP 5 mg Q6HR NATHANIEL Administration Ondansetron HCl 4 mg 01/23/21 21:51 01/24/21 13:42 Ondansetron 4 Mg/2 Ml Vial IVP 4 mg Q6HR PRN Administration Nausea / Vomiting Pantoprazole Sodium 40 mg 01/23/21 23:00 01/24/21 09:00 Pantoprazole 40 Mg Vial IVP 40 mg BID NATHANIEL Administration Sodium Chloride 10 ml 10/29/21 01:00 01/24/21 09:00 Sodium Chloride Flush 0.9% 10 Ml Syringe IVP Not Given 0100,0900,1700 NATHANIEL Tamsulosin HCl 0.4 mg 01/24/21 09:00 01/24/21 08:59 Tamsulosin 0.4 Mg Capsule PO 0.4 mg DAILY NATHANIEL Administration - Lab Result Fish Bone Diagrams: 01/24/21 03:06 01/24/21 03:06 - EKG Results EKG Interpreted Independently: Yes - Additional Planning My Orders: My Active Orders 01/24/21 11:48 Echo Transthoracic Complete [ECHO] Routine 01/24/21 13:00 Apixaban [Eliquis] 5 mg PO BID 01/24/21 15:19 Admit [Admit \ Transfer \ Status] [RC] .ONCE 01/24/21 Dinner Clear Liquid Diet [DIET] 01/24/21 21:00 Insulin Glargine [Lantus Solostar] 30 unit SUBQ QPM Subjective - Subjective Patient Reports: Abdominal Pain, Nausea (He has had sips of water and apple juice, this made him nauseated but no vomiting today, getting IV antiemetic) Objective Vital Signs: Vital Signs - 24 hr 01/23/21 01/23/21 01/23/21 15:55 18:29 20:00 Temperature 36.5 C 36.6 C 36.8 C Heart Rate 100 102 H 107 H Heart Rate [ Brachial] Respiratory 20 12 16 Rate Blood Pressure 190/100 H 126/80 201/91 H Blood Pressure [Left Brachial artery] Blood Pressure [Right Brachial artery] O2 Saturation 98 97 95 01/23/21 01/23/21 01/23/21 20:30 22:00 23:00 Temperature Heart Rate 94 100 Heart Rate [ 110 H Brachial] Respiratory 16 14 21 Rate Blood Pressure 134/92 H 200/100 H Blood Pressure 215/112 H [Left Brachial artery] Blood Pressure [Right Brachial artery] O2 Saturation 98 94 100 01/23/21 01/24/21 01/24/21 23:32 00:12 06:43 Temperature 37.3 C 37.7 C Heart Rate Heart Rate [ 102 H 121 H Brachial] Respiratory 20 20 Rate Blood Pressure Blood Pressure 124/74 145/77 H [Left Brachial artery] Blood Pressure 231/122 H [Right Brachial artery] O2 Saturation 96 98 01/24/21 01/24/21 01/24/21 06:51 07:21 07:30 Temperature 36.8 C Heart Rate Heart Rate [ 123 H Brachial] Respiratory 20 Rate Blood Pressure 230/110 H 207/103 H Blood Pressure [Left Brachial artery] Blood Pressure 221/124 H [Right Brachial artery] O2 Saturation 99 01/24/21 11:35 Temperature 36.4 C L Heart Rate Heart Rate [ 100 Brachial] Respiratory 20 Rate Blood Pressure Blood Pressure [Left Brachial artery] Blood Pressure 214/74 H [Right Brachial artery] O2 Saturation 98 Oxygen O2 Source Room air I&O (Last 24 Hrs): Intake and Output Totals x24h 01/22/21 01/23/21 01/24/21 23:59 23:59 23:59 Intake Total 2014 1040 Output Total 1190 Balance 2015 -150 General: Alert (Sleepy, appears fatigued), Oriented x3 HEENT: Mucous membr. moist/pink Neck: Supple, No JVD Neuro: Alert, Non Focal Cardiovascular: Regular rate, No murmurs Respiratory: No respiratory distress, Breath sounds nml Abdomen: Normal bowel sounds, Soft, No tenderness Extremities: No edema, Other (Some amputated toes) - Results Results: Laboratory Results WBC 11.4 x10^3/uL (4.8-10.8) H 01/24/21 03:06 RBC 5.06 10^6/uL (4.70-6.10) 01/24/21 03:06 Hgb 15.5 g/dL (14.0-18.0) 01/24/21 03:06 Hct 47.2 % (42.0-52.0) 01/24/21 03:06 MCV 93.3 fL (80.0-94.0) 01/24/21 03:06 MCH 30.6 pg (27.0-31.0) 01/24/21 03:06 MCHC 32.8 g/dL (32.0-36.0) 01/24/21 03:06 RDW 13.2 % (12.0-15.0) 01/24/21 03:06 Plt Count 203 10^3/uL (130-450) 01/24/21 03:06 MPV 10.0 fL (7.4-11.4) 01/24/21 03:06 Neut # (Auto) 9.4 10^3/uL (1.5-6.6) H 01/24/21 03:06 Lymph # (Auto) 0.9 10^3/uL (1.5-3.5) L 01/24/21 03:06 Larue # (Auto) 1.0 10^3/uL (0.0-1.0) 01/24/21 03:06 Eos # (Auto) 0.0 10^3/uL (0.0-0.7) 01/24/21 03:06 Baso # (Auto) 0.0 10^3/uL (0.0-0.1) 01/24/21 03:06 Absolute Nucleated RBC 0.00 x10^3/uL 01/24/21 03:06 Nucleated RBC % 0.0 /100WBC 01/24/21 03:06 VBG pH 7.451 (7.31-7.41) H 01/23/21 16:47 VBG pCO2 27.3 mmHg (41-51) L 01/23/21 16:47 VBG pO2 29.3 mmHg (25-47) 01/23/21 16:47 VBG HCO3 18.6 mmol/L (23-28) L 01/23/21 16:47 VBG Total CO2 19.4 mmol/L (24-29) L 01/23/21 16:47 VBG O2 Saturation 62.8 % (60-80) 01/23/21 16:47 VBG Base Excess -3.5 mmol/L (-2 - +2) L 01/23/21 16:47 Sodium 140 mmol/L (135-145) 01/24/21 03:06 Potassium 3.4 mmol/L (3.5-5.0) L 01/24/21 03:06 Chloride 106 mmol/L (101-111) 01/24/21 03:06 Carbon Dioxide 20 mmol/L (21-32) L 01/24/21 03:06 Anion Gap 14.0 (6-13) H 01/24/21 03:06 BUN 26 mg/dL (6-20) H 01/24/21 03:06 Creatinine 1.1 mg/dL (0.6-1.2) 01/24/21 03:06 Estimated GFR (MDRD) 67 (>89) L 01/24/21 03:06 Glucose 191 mg/dL (70-100) H 01/24/21 03:06 POC Whole Bld Glucose 241 mg/dL (70 - 100) H 01/24/21 11:28 Calcium 9.2 mg/dL (8.5-10.3) 01/24/21 03:06 Magnesium 1.9 mg/dL (1.7-2.8) 01/23/21 16:47 Total Bilirubin 2.0 mg/dL (0.2-1.0) H 01/23/21 16:47 AST 36 IU/L (10-42) 01/23/21 16:47 ALT 24 IU/L (10-60) 01/23/21 16:47 Alkaline Phosphatase 101 IU/L (42-121) 01/23/21 16:47 Troponin I High Sens 77.9 ng/L (2.3-19.7) H* 01/24/21 08:51 C-React Prot High Sens 18.7 mg/L 01/23/21 21:37 B-Natriuretic Peptide 126 pg/mL (5-100) H 01/23/21 16:47 Total Protein 8.5 g/dL (6.7-8.2) H 01/23/21 16:47 Albumin 5.3 g/dL (3.2-5.5) 01/23/21 16:47 Globulin 3.2 g/dL (2.1-4.2) 01/23/21 16:47 Albumin/Globulin Ratio 1.7 (1.0-2.2) 01/23/21 16:47 TSH 2.58 uIU/mL (0.34-5.60) 01/23/21 16:47 Urine Color YELLOW 01/23/21 19:12 Urine Clarity CLEAR (CLEAR) 01/23/21 19:12 Urine pH 5.5 PH (5.0-7.5) 01/23/21 19:12 Ur Specific Prentiss 1.025 (1.002-1.030) 01/23/21 19:12 Urine Protein 100 mg/dL (NEGATIVE) H 01/23/21 19:12 Urine Glucose (UA) >=1000 mg/dL (NEGATIVE) H 01/23/21 19:12 Urine Ketones >=80 mg/dL (NEGATIVE) H 01/23/21 19:12 Urine Occult Blood MODERATE (NEGATIVE) H 01/23/21 19:12 Urine Nitrite NEGATIVE (NEGATIVE) 01/23/21 19:12 Urine Bilirubin NEGATIVE (NEGATIVE) 01/23/21 19:12 Urine Urobilinogen 0.2 (NORMAL) E.U./dL (NORMAL) 01/23/21 19:12 Ur Leukocyte Esterase NEGATIVE (NEGATIVE) 01/23/21 19:12 Urine RBC 0-5 /HPF (0-5) 01/23/21 19:12 Urine WBC 0-3 /HPF (0-3) 01/23/21 19:12 Ur Squamous Epith Cells RARE Squamous (<= Few) 01/23/21 19:12 Urine Bacteria Rare /HPF (None Seen) 01/23/21 19:12 Urine Casts 0-2 Fine Granular /LPF0-2 Hyaline Casts /LPF 01/23/21 19:12 Urine Casts 0-2 Fine Granular /LPF0-2 Hyaline Casts /LPF 01/23/21 19:12 Ur Microscopic Review INDICATED 01/23/21 19:12 Urine Culture Comments NOT INDICATED 01/23/21 19:12 Nasal Adenovirus (PCR) NOT DETECTED 01/23/21 21:18 Nasal B. parapertussis DNA (PCR) NOT DETECTED 01/23/21 21:18 Nasal Coronavir 229E PCR NOT DETECTED 01/23/21 21:18 Nasal Coronavir HKU1 PCR NOT DETECTED 01/23/21 21:18 Nasal Coronavir NL63 PCR NOT DETECTED 01/23/21 21:18 Nasal Coronavir OC43 PCR NOT DETECTED 01/23/21 21:18 Nasal Enterovir/Rhinovir PCR NOT DETECTED 01/23/21 21:18 Nasal Influenza B PCR NOT DETECTED 01/23/21 21:18 Nasal Influenza A PCR NOT DETECTED 01/23/21 21:18 Nasal Parainfluen 1 PCR NOT DETECTED 01/23/21 21:18 Nasal Parainfluen 2 PCR NOT DETECTED 01/23/21 21:18 Nasal Parainfluen 3 PCR NOT DETECTED 01/23/21 21:18 Nasal Parainfluen 4 PCR NOT DETECTED 01/23/21 21:18 Nasal RSV (PCR) NOT DETECTED 01/23/21 21:18 Nasal B.pertussis DNA PCR NOT DETECTED 01/23/21 21:18 Nasal C.pneumoniae (PCR) NOT DETECTED 01/23/21 21:18 Nilesh Human Metapneumo PCR NOT DETECTED 01/23/21 21:18 Nasal M.pneumoniae (PCR) NOT DETECTED 01/23/21 21:18 Nasal SARS-CoV-2 (PCR) NOT DETECTED 01/23/21 21:18 Urine Opiates Screen NEGATIVE (NEGATIVE) 01/23/21 19:12 Ur Oxycodone Screen NEGATIVE (NEGATIVE) 01/23/21 19:12 Urine Methadone Screen NEGATIVE (NEGATIVE) 01/23/21 19:12 Ur Propoxyphene Screen NEGATIVE (NEGATIVE) 01/23/21 19:12 Ur Barbiturates Screen NEGATIVE (NEGATIVE) 01/23/21 19:12 Ur Tricyclics Screen NEGATIVE (NEGATIVE) 01/23/21 19:12 Ur Phencyclidine Scrn NEGATIVE (NEGATIVE) 01/23/21 19:12 Ur Amphetamine Screen NEGATIVE (NEGATIVE) 01/23/21 19:12 U Methamphetamines Scrn NEGATIVE (NEGATIVE) 01/23/21 19:12 U Benzodiazepines Scrn NEGATIVE (NEGATIVE) 01/23/21 19:12 Urine Cocaine Screen NEGATIVE (NEGATIVE) 01/23/21 19:12 U Cannabinoids Screen POSITIVE (NEGATIVE) H 01/23/21 19:12 Serum Ketones NEGATIVE (NEGATIVE) 01/23/21 16:47 - Procedures Procedures: Procedures DETACHMENT AT LEFT FOOT, PARTIAL 5TH RAY, OPEN APPROACH (12/20/19) EXCISION OF LEFT METATARSAL, OPEN APPROACH (12/06/19) INSERTION OF INFUSION DEV INTO SUP VENA CAVA, PERC APPROACH (05/28/20) INSERTION OF INFUSION DEVICE INTO R ATRIUM, PERC APPROACH (06/09/19) ULTRASONOGRAPHY OF SUPERIOR VENA CAVA, GUIDANCE (06/09/19)
[2021-01-24] MEDS: METOPROLOL 5 MG/5 ML VIAL IVP PRN ×2 (15:54→22:49)
[2021-01-24] MEDS: hydrALAZINE INJ 20 MG/ML VIAL IVP PRN (17:56)
[2021-01-24] MEDS ORDERED: INSULIN GLARGINE 300 UNIT/3 ML PEN SUBQ SCH (21:00)
[2021-01-24] MEDS: INSULIN GLARGINE 300 UNIT/3 ML PEN SUBQ SCH (21:10)
[2021-01-24] MEDS: oxyCODONE 5 MG TABLET PO PRN (23:52)
[2021-01-25] MEDS: SODIUM CHLORIDE FLUSH 0.9% 10 ML SYRINGE IVP SCH ×5 (02:46→23:57)
[2021-01-25] MEDS: ONDANSETRON 4 MG/2 ML VIAL IVP PRN ×3 (03:22→16:06)
[2021-01-25] MEDS: hydrALAZINE INJ 20 MG/ML VIAL IVP PRN (04:00)
[2021-01-25] MEDS: oxyCODONE 5 MG TABLET PO PRN ×2 (04:02→22:04)
[2021-01-25] MEDS: INSULIN REGULAR HUMAN 300 UNIT/3 ML VIAL SUBQ SCH (05:55)
[2021-01-25] MEDS: METOCLOPRAMIDE 10 MG/2 ML VIAL IVP SCH ×4 (05:55→23:56)
[2021-01-25] MEDS: LACTATED RINGERS 1,000 ML IV SCH ×2 (05:56→16:27)
[2021-01-25] MEDS: TAMSULOSIN 0.4 MG CAPSULE PO SCH (08:56)
[2021-01-25] MEDS: PANTOPRAZOLE 40 MG VIAL IVP SCH ×2 (08:56→21:05)
[2021-01-25] MEDS: carvediloL 12.5 MG TABLET PO SCH (08:56)
[2021-01-25] MEDS: APIXABAN 5 MG TABLET PO SCH ×2 (08:56→21:09)
[2021-01-25] MEDS: amLODIPine 5 MG TABLET PO SCH (08:56)
[2021-01-25] MEDS: INSULIN ASPART 300 UNIT/3 ML PEN SUBQ SCH ×4 (09:30→21:30)
[2021-01-25] MEDS ORDERED: amLODIPine 5 MG TABLET PO STA (09:31)
[2021-01-25] MEDS: PROCHLORPERAZINE 10 MG/2 ML VIAL IVP PRN ×2 (10:49→19:34)
--- NOTE | 2021-01-25 19:03 | PROVIDER PROGRESS NOTE ---
Assessment/Plan - Problem List (1) Intractable nausea and vomiting Assessment/Plan: Patient is still nauseated and had overnight vomiting, still needing anti- emetics and to see if he will tolerate oral intake. In addition, he is very dehydrated per the Echo done yesterday, therefore he still needs continued iv fluids at a high rate, which he is unable to take by mouth yet. Continue prn iv ant-emetics. (2) Gastroparesis diabeticorum Assessment/Plan: He has gastroparesis from diabetes and probably his use of marijuana adds to his recurrences of nausea and vomiting. Continue with antiemetics as needed and his diabetic management (3) IDDM (insulin dependent diabetes mellitus) Assessment/Plan: This patient took Lantus 50 units every evening at home but tells me that because he forgot it 1 evening, so he switched to taking it in the morning for the last 3 days before being admitted. Glu here is 170- 200's We resumed a Lantus dose at night again but we decreased it from 50 units to 30 units because of his poor p.o. intake. We will continue with D5 in his peripheral IV to avoid hypoglycemia. Continue with fingerstick glucose checks and sliding scale insulin coverage. (4) Hypertension, uncontrolled Assessment/Plan: We continued his home doses of carvedilol and amlodipine. Blood pressure is still intermittently as high as 212 systolic, possibly slightly due to pain IV metoprolol every 6 hours has been ordered if needed and IV hydralazine every 6 hours if needed for extreme blood pressure elevations. Will increase the Amlodipine to max dose of 10 mg daily (5) Pericardial effusion without cardiac tamponade Assessment/Plan: The last Echo showed a small pericardial effusion. The CT scan of the abdomen done at admission remarked on a moderate pericardial effusion being present. An Echo was therefore done yesterday which shows a loculated small pericardial effusion laterally and around the RV. It is trivial/small and there are no signs of tamponade and it is chronic. (6) Coronary artery disease Assessment/Plan: This patient underwent coronary angiography in August 2019 and received a stent[facility]. Continue with his post-MA oral meds (7) BPH (benign prostatic hyperplasia) Assessment/Plan: Continue with his home meds for managing BPH (8) Afib Assessment/Plan: This patient has a history of Afib, DVT and PE in 05/2020. For this he had been put on Warfarin then Xarelto. As per our pharmacist (Isidro) reviewing his medications that were picked up, he was started on Eliquis and the PCP's (Dr Logan's) office note from 07/15/20 state d that the patient will need anticoagulation lifelong due to having Atrial fib. He is currently in NSR per EKG. The patient confirms for me that he has been taking Eliquis twice a day. We will continue with his usual home dose of Eliquis while here. We are continuing his B-norberto. - Current Meds Current Meds: Current Medications Generic Name Dose Route Start Last Admin Trade Name Freq PRN Reason Stop Dose Admin Apixaban 5 mg 01/24/21 13:00 01/25/21 08:56 Apixaban 5 Mg Tablet PO 5 mg BID NATHANIEL Administration Hydralazine HCl 10 mg 01/24/21 16:12 01/25/21 04:00 Hydralazine Inj 20 Mg/Ml Vial IVP 10 mg Q6H PRN Administration Hypertensive Emergency Lactated Ringer's 1,000 mls @ 100 mls/hr 01/23/21 22:00 01/25/21 16:27 Lr IV 100 mls/hr .Q10H NATHANIEL Administration Insulin Aspart 1 - 9 unit 01/25/21 08:00 01/25/21 17:58 Insulin Aspart 300 Unit/3 Ml Pen SUBQ Not Given 0800,1200,1700,2100 NATHANIEL Protocol Insulin Glargine 30 unit 01/24/21 21:00 01/24/21 21:10 Insulin Glargine 300 Unit/3 Ml Pen SUBQ 30 unit QPM NATHANIEL Administration Metoclopramide HCl 5 mg 01/23/21 22:36 01/25/21 17:56 Metoclopramide 10 Mg/2 Ml Vial IVP 5 mg Q6HR NATHANIEL Administration Metoprolol Tartrate 5 mg 01/23/21 23:05 01/24/21 22:49 Metoprolol 5 Mg/5 Ml Vial IVP 5 mg Q6H PRN Administration Hypertensive Emergency Ondansetron HCl 4 mg 01/23/21 21:51 01/25/21 16:06 Ondansetron 4 Mg/2 Ml Vial IVP 4 mg Q6HR PRN Administration Nausea / Vomiting Oxycodone HCl 5 mg 01/23/21 21:51 01/25/21 04:02 Oxycodone 5 Mg Tablet PO 5 mg Q4HR PRN Administration Pain 5 to 7 Pantoprazole Sodium 40 mg 01/23/21 23:00 01/25/21 08:56 Pantoprazole 40 Mg Vial IVP 40 mg BID NATHANIEL Administration Prochlorperazine Edisylate 10 mg 01/25/21 09:33 01/25/21 10:49 Prochlorperazine 10 Mg/2 Ml Vial IVP 10 mg Q6HR PRN Administration Nausea / Vomiting Sodium Chloride 10 ml 01/24/21 01:00 01/25/21 17:57 Sodium Chloride Flush 0.9% 10 Ml Syringe IVP 10 ml 0100,0900,1700 NATHANIEL Administration Tamsulosin HCl 0.4 mg 01/24/21 09:00 01/25/21 08:56 Tamsulosin 0.4 Mg Capsule PO 0.4 mg DAILY NATHANIEL Administration - Lab Result Fish Bone Diagrams: 01/24/21 03:06 01/24/21 03:06 - Additional Planning My Orders: My Active Orders 01/24/21 21:00 Insulin Glargine [Lantus Solostar] 30 unit SUBQ QPM 01/25/21 08:00 Insulin Aspart [NovoLOG] 1 - 9 unit SUBQ 0800,1200,1700,2100 01/25/21 09:33 Prochlorperazine Inj [Compazine Inj] 10 mg IVP Q6HR PRN 01/25/21 21:00 carvediloL [Coreg] 25 mg PO BID 01/26/21 09:00 amLODIPine [Norvasc] 10 mg PO DAILY Subjective - Subjective Patient Reports: Fatigue (Slept most of the day), Nausea (No more vomiting since midnight) Objective Vital Signs: Vital Signs - 24 hr 01/24/21 01/24/21 01/24/21 21:00 22:49 23:19 Temperature 36.8 C Heart Rate [ 105 H Brachial] Respiratory 20 Rate Blood Pressure 196/114 H 182/104 H Blood Pressure 193/104 H [Right Brachial artery] O2 Saturation 95 01/24/21 01/25/21 01/25/21 23:26 00:03 04:02 Temperature 37.6 C Heart Rate [ 97 Brachial] Respiratory 18 Rate Blood Pressure Blood Pressure 182/104 H 179/106 H 187/123 H [Right Brachial artery] O2 Saturation 98 01/25/21 01/25/21 01/25/21 04:30 05:41 09:00 Temperature 37.5 C 37.1 C Heart Rate [ 95 96 Brachial] Respiratory 16 18 Rate Blood Pressure 204/116 H Blood Pressure 204/116 H 215/113 H [Right Brachial artery] O2 Saturation 95 96 01/25/21 01/25/21 01/25/21 10:48 12:33 17:00 Temperature 36.8 C 36.7 C Heart Rate [ 83 84 98 Brachial] Respiratory 16 20 Rate Blood Pressure Blood Pressure 149/86 H 126/86 H 151/94 H [Right Brachial artery] O2 Saturation 95 99 Oxygen O2 Source Room air I&O (Last 24 Hrs): Intake and Output Totals x24h 01/23/21 01/24/21 01/25/21 23:59 23:59 23:59 Intake Total 2014 2239 2079 Output Total 1665 125 Balance 2014 575 1955 General: Alert, Oriented x3 HEENT: Mucous membr. moist/pink Neck: Supple, No JVD Neuro: Alert, Non Focal Cardiovascular: Regular rate Respiratory: No respiratory distress Abdomen: Normal bowel sounds, Soft Extremities: No edema, Other (S/P partial amputations of several toes) - Results Results: Laboratory Results WBC 11.4 x10^3/uL (4.8-10.8) H 01/24/21 03:06 RBC 5.06 10^6/uL (4.70-6.10) 01/24/21 03:06 Hgb 15.5 g/dL (14.0-18.0) 01/24/21 03:06 Hct 47.2 % (42.0-52.0) 01/24/21 03:06 MCV 93.3 fL (80.0-94.0) 01/24/21 03:06 MCH 30.6 pg (27.0-31.0) 01/24/21 03:06 MCHC 32.8 g/dL (32.0-36.0) 01/24/21 03:06 RDW 13.2 % (12.0-15.0) 01/24/21 03:06 Plt Count 203 10^3/uL (130-450) 01/24/21 03:06 MPV 10.0 fL (7.4-11.4) 01/24/21 03:06 Neut # (Auto) 9.4 10^3/uL (1.5-6.6) H 01/24/21 03:06 Lymph # (Auto) 0.9 10^3/uL (1.5-3.5) L 01/24/21 03:06 [place] # (Auto) 1.0 10^3/uL (0.0-1.0) 01/24/21 03:06 Eos # (Auto) 0.0 10^3/uL (0.0-0.7) 01/24/21 03:06 Baso # (Auto) 0.0 10^3/uL (0.0-0.1) 01/24/21 03:06 Absolute Nucleated RBC 0.00 x10^3/uL 01/24/21 03:06 Nucleated RBC % 0.0 /100WBC 01/24/21 03:06 VBG pH 7.451 (7.31-7.41) H 01/23/21 16:47 VBG pCO2 27.3 mmHg (41-51) L 01/23/21 16:47 VBG pO2 29.3 mmHg (25-47) 01/23/21 16:47 VBG HCO3 18.6 mmol/L (23-28) L 01/23/21 16:47 VBG Total CO2 19.4 mmol/L (24-29) L 01/23/21 16:47 VBG O2 Saturation 62.8 % (60-80) 01/23/21 16:47 VBG Base Excess -3.5 mmol/L (-2 - +2) L 01/23/21 16:47 Sodium 140 mmol/L (135-145) 01/24/21 03:06 Potassium 3.4 mmol/L (3.5-5.0) L 01/24/21 03:06 Chloride 106 mmol/L (101-111) 01/24/21 03:06 Carbon Dioxide 20 mmol/L (21-32) L 01/24/21 03:06 Anion Gap 14.0 (6-13) H 01/24/21 03:06 BUN 26 mg/dL (6-20) H 01/24/21 03:06 Creatinine 1.1 mg/dL (0.6-1.2) 01/24/21 03:06 Estimated GFR (MDRD) 67 (>89) L 01/24/21 03:06 Glucose 191 mg/dL (70-100) H 01/24/21 03:06 POC Whole Bld Glucose 189 mg/dL (70 - 100) H 01/25/21 16:18 Calcium 9.2 mg/dL (8.5-10.3) 01/24/21 03:06 Magnesium 1.9 mg/dL (1.7-2.8) 01/23/21 16:47 Total Bilirubin 2.0 mg/dL (0.2-1.0) H 01/23/21 16:47 AST 36 IU/L (10-42) 01/23/21 16:47 ALT 24 IU/L (10-60) 01/23/21 16:47 Alkaline Phosphatase 101 IU/L (42-121) 01/23/21 16:47 Troponin I High Sens 77.9 ng/L (2.3-19.7) H* 01/24/21 08:51 C-React Prot High Sens 18.7 mg/L 01/23/21 21:37 B-Natriuretic Peptide 126 pg/mL (5-100) H 01/23/21 16:47 Total Protein 8.5 g/dL (6.7-8.2) H 01/23/21 16:47 Albumin 5.3 g/dL (3.2-5.5) 01/23/21 16:47 Globulin 3.2 g/dL (2.1-4.2) 01/23/21 16:47 Albumin/Globulin Ratio 1.7 (1.0-2.2) 01/23/21 16:47 TSH 2.58 uIU/mL (0.34-5.60) 01/23/21 16:47 Urine Color YELLOW 01/23/21 19:12 Urine Clarity CLEAR (CLEAR) 01/23/21 19:12 Urine pH 5.5 PH (5.0-7.5) 01/23/21 19:12 Ur Specific [place] 1.025 (1.002-1.030) 01/23/21 19:12 Urine Protein 100 mg/dL (NEGATIVE) H 01/23/21 19:12 Urine Glucose (UA) >=1000 mg/dL (NEGATIVE) H 01/23/21 19:12 Urine Ketones >=80 mg/dL (NEGATIVE) H 01/23/21 19:12 Urine Occult Blood MODERATE (NEGATIVE) H 01/23/21 19:12 Urine Nitrite NEGATIVE (NEGATIVE) 01/23/21 19:12 Urine Bilirubin NEGATIVE (NEGATIVE) 01/23/21 19:12 Urine Urobilinogen 0.2 (NORMAL) E.U./dL (NORMAL) 01/23/21 19:12 Ur Leukocyte Esterase NEGATIVE (NEGATIVE) 01/23/21 19:12 Urine RBC 0-5 /HPF (0-5) 01/23/21 19:12 Urine WBC 0-3 /HPF (0-3) 01/23/21 19:12 Ur Squamous Epith Cells RARE Squamous (<= Few) 01/23/21 19:12 Urine Bacteria Rare /HPF (None Seen) 01/23/21 19:12 Urine Casts 0-2 Fine Granular /LPF0-2 Hyaline Casts /LPF 01/23/21 19:12 Urine Casts 0-2 Fine Granular /LPF0-2 Hyaline Casts /LPF 01/23/21 19:12 Ur Microscopic Review INDICATED 01/23/21 19:12 Urine Culture Comments NOT INDICATED 01/23/21 19:12 Nasal Adenovirus (PCR) NOT DETECTED 01/23/21 21:18 Nasal B. parapertussis DNA (PCR) NOT DETECTED 01/23/21 21:18 Nasal Coronavir 229E PCR NOT DETECTED 01/23/21 21:18 Nasal Coronavir HKU1 PCR NOT DETECTED 01/23/21 21:18 Nasal Coronavir NL63 PCR NOT DETECTED 01/23/21 21:18 Nasal Coronavir OC43 PCR NOT DETECTED 01/23/21 21:18 Nasal Enterovir/Rhinovir PCR NOT DETECTED 01/23/21 21:18 Nasal Influenza B PCR NOT DETECTED 01/23/21 21:18 Nasal Influenza A PCR NOT DETECTED 01/23/21 21:18 Nasal Parainfluen 1 PCR NOT DETECTED 01/23/21 21:18 Nasal Parainfluen 2 PCR NOT DETECTED 01/23/21 21:18 Nasal Parainfluen 3 PCR NOT DETECTED 01/23/21 21:18 Nasal Parainfluen 4 PCR NOT DETECTED 01/23/21 21:18 Nasal RSV (PCR) NOT DETECTED 01/23/21 21:18 Nasal B.pertussis DNA PCR NOT DETECTED 01/23/21 21:18 Nasal C.pneumoniae (PCR) NOT DETECTED 01/23/21 21:18 Nilesh Human Metapneumo PCR NOT DETECTED 01/23/21 21:18 Nasal M.pneumoniae (PCR) NOT DETECTED 01/23/21 21:18 Nasal SARS-CoV-2 (PCR) NOT DETECTED 01/23/21 21:18 Urine Opiates Screen NEGATIVE (NEGATIVE) 01/23/21 19:12 Ur Oxycodone Screen NEGATIVE (NEGATIVE) 01/23/21 19:12 Urine Methadone Screen NEGATIVE (NEGATIVE) 01/23/21 19:12 Ur Propoxyphene Screen NEGATIVE (NEGATIVE) 01/23/21 19:12 Ur Barbiturates Screen NEGATIVE (NEGATIVE) 01/23/21 19:12 Ur Tricyclics Screen NEGATIVE (NEGATIVE) 01/23/21 19:12 Ur Phencyclidine Scrn NEGATIVE (NEGATIVE) 01/23/21 19:12 Ur Amphetamine Screen NEGATIVE (NEGATIVE) 01/23/21 19:12 U Methamphetamines Scrn NEGATIVE (NEGATIVE) 01/23/21 19:12 U Benzodiazepines Scrn NEGATIVE (NEGATIVE) 01/23/21 19:12 Urine Cocaine Screen NEGATIVE (NEGATIVE) 01/23/21 19:12 U Cannabinoids Screen POSITIVE (NEGATIVE) H 01/23/21 19:12 Serum Ketones NEGATIVE (NEGATIVE) 01/23/21 16:47 - Procedures Procedures: Procedures DETACHMENT AT LEFT FOOT, PARTIAL 5TH RAY, OPEN APPROACH (12/20/19) EXCISION OF LEFT METATARSAL, OPEN APPROACH (12/06/19) INSERTION OF INFUSION DEV INTO SUP VENA CAVA, PERC APPROACH (05/28/20) INSERTION OF INFUSION DEVICE INTO R ATRIUM, PERC APPROACH (06/09/19) ULTRASONOGRAPHY OF SUPERIOR VENA CAVA, GUIDANCE (06/09/19)
[2021-01-25] MEDS: SODIUM CHLORIDE FLUSH 0.9% 10 ML SYRINGE IVP PRN ×2 (19:34→21:05)
[2021-01-25] MEDS ORDERED: carvediloL 12.5 MG TABLET PO SCH ×2 (21:00→22:00)
[2021-01-25] MEDS: INSULIN GLARGINE 300 UNIT/3 ML PEN SUBQ SCH (21:28)
[2021-01-26] MEDS: LACTATED RINGERS 1,000 ML IV SCH ×3 (02:15→21:50)
[2021-01-26] MEDS: ONDANSETRON 4 MG/2 ML VIAL IVP PRN ×3 (02:19→18:36)
[2021-01-26] MEDS: SODIUM CHLORIDE FLUSH 0.9% 10 ML SYRINGE IVP PRN ×4 (02:19→18:36)
[2021-01-26] MEDS: METOCLOPRAMIDE 10 MG/2 ML VIAL IVP SCH ×3 (05:42→17:36)
[2021-01-26] MEDS: oxyCODONE 5 MG TABLET PO PRN (05:46)
[2021-01-26] MEDS: hydrALAZINE INJ 20 MG/ML VIAL IVP PRN (05:48)
[2021-01-26] MEDS: TAMSULOSIN 0.4 MG CAPSULE PO SCH (08:36)
[2021-01-26] MEDS: carvediloL 12.5 MG TABLET PO SCH ×2 (08:36→21:54)
[2021-01-26] MEDS: amLODIPine 5 MG TABLET PO SCH (08:37)
[2021-01-26] MEDS: PANTOPRAZOLE 40 MG VIAL IVP SCH (08:37)
[2021-01-26] MEDS: APIXABAN 5 MG TABLET PO SCH ×2 (08:43→21:51)
[2021-01-26] MEDS: INSULIN ASPART 300 UNIT/3 ML PEN SUBQ SCH ×4 (08:43→21:54)
[2021-01-26] MEDS ORDERED: DEXTROSE 50% ABBOJECT 25 GM/50 ML SYRINGE IVP ONE (09:09)
[2021-01-26 10:14] LABS: CALCIUM 8.1 mg/dL (8.5-10.3); CREATININE 1.1 mg/dL (0.6-1.2); POTASSIUM 3.2 mmol/L (3.5-5.0)
[2021-01-26] MEDS: PROCHLORPERAZINE 10 MG/2 ML VIAL IVP PRN ×2 (13:44→21:35)
[2021-01-26] MEDS: POTASSIUM CHLOR 10 MEQ/100 ML 10 MEQ/100 ML BAG IV SCH ×3 (14:01→16:40)
[2021-01-26] MEDS: SODIUM CHLORIDE FLUSH 0.9% 10 ML SYRINGE IVP SCH (17:36)
--- NOTE | 2021-01-26 18:44 | HISTORY & PHYSICAL EXAMINATION ---
History - Past Medical History Cardiovascular: reports: Hypertension, High cholesterol, [place] Respiratory: reports: None Neuro: reports: None, Peripheral neuropathy (Bilateral feet; several toe amputations), Other Endocrine/Autoimmune: reports: Type 1 diabetes, Type 2 diabetes GI: reports: GERD : reports: Benign prostate hypertrophy HEENT: reports: Chronic vision loss, Other Psych: reports: Claustrophobia Musculoskeletal: reports: Osteoarthritis Derm: reports: None MRSA Hx?: No - Past Surgical History General: reports: Appendectomy Ortho: reports: Amputation, Other Cardiovascular: reports: Other - Family & Social History Family History: Father: Cancer, Sister: Diabetes, Type 1, Brother: Cancer, Diabetes, Type 1 Living arrangement: At home Living Situation: Alone Social History Notes: He smokes marijuana on a weekly basis but no tobacco product. He drinks occasionally. No other recreational substance abuse. 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 - POLST Patient has POLST: No POLST Status: Full Code Meds/Allgy - Home Medications Home Medications: Ambulatory Orders Medication Instructions Recorded Confirmed Tamsulosin [Flomax] 0.4 mg PO DAILY 06/09/19 01/24/21 amLODIPine [Norvasc] 5 mg PO DAILY #30 tablet 07/28/19 01/24/21 Metoclopramide [Reglan] 10 mg PO TID PRN 12/07/19 01/24/21 Ondansetron Odt [Zofran Odt] 4 mg PO Q6H PRN 05/29/20 01/24/21 Apixaban [Eliquis] 5 mg PO BID 01/24/21 01/24/21 Insulin Glargine [Lantus Solostar] 50 units SUBQ DAILY 01/24/21 01/24/21 Omeprazole 40 mg PO DAILY 01/24/21 01/24/21 - Allergies Allergies/Adverse Reactions: Allergies Allergy/AdvReac Type Severity Reaction Status Date / Time No Known Drug Allergies Allergy Verified 01/23/21 15:55 Exam - Vital Signs Vital Signs: Vital Signs x48h Temp Pulse Resp BP BP Pulse Ox 01/26/21 15:54 36.8 C 78 16 122/66 95 01/26/21 12:04 37.7 C 79 14 117/73 95 Conclusion/Plan - Lab Results Fish Bones: 01/24/21 03:06 01/26/21 10:00
[2021-01-26] MEDS: PANTOPRAZOLE 40 MG TABLET PO SCH (21:54)
[2021-01-26] MEDS: INSULIN GLARGINE 300 UNIT/3 ML PEN SUBQ SCH (21:55)
[2021-01-27] MEDS: SODIUM CHLORIDE FLUSH 0.9% 10 ML SYRINGE IVP SCH ×3 (00:32→16:58)
[2021-01-27] MEDS: METOCLOPRAMIDE 10 MG/2 ML VIAL IVP SCH ×4 (00:32→17:00)
[2021-01-27] MEDS: oxyCODONE 5 MG TABLET PO PRN (00:42)
[2021-01-27] MEDS: ONDANSETRON 4 MG/2 ML VIAL IVP PRN ×3 (03:20→20:30)
[2021-01-27 05:50] LABS: BASOPHILS % (AUTO) 0.2 %; EOSINOPHILS % (AUTO) 0.5 %; HCT - HEMATOCRIT 40.2 % (42.0-52.0); HGB - HEMOGLOBIN 13.8 g/dL (14.0-18.0); LYMPHOCYTES # (AUTO) 0.9 10^3/uL (1.5-3.5); LYMPHOCYTES % (AUTO) 13.6 %; MEAN CORPUSCULAR HEMOGLOBIN 31.3 pg (27.0-31.0); MEAN CORPUSCULAR HGB CONC 34.3 g/dL (32.0-36.0); MEAN CORPUSCULAR VOLUME 91.2 fL (80.0-94.0); MEAN PLATELET VOLUME 9.8 fL (7.4-11.4); MONOCYTES # (AUTO) 0.7 10^3/uL (0.0-1.0); MONOCYTES % (AUTO) 11.6 %; NEUTROPHILS # (AUTO) 4.7 10^3/uL (1.5-6.6); NEUTROPHILS % (AUTO) 73.8 %; PLT - PLATELET COUNT 213 10^3/uL (130-450); RED BLOOD COUNT 4.41 10^6/uL (4.70-6.10); RED CELL DISTRIBUTION WIDTH 12.5 % (12.0-15.0); WHITE BLOOD COUNT 6.3 x10^3/uL (4.8-10.8)
[2021-01-27 06:15] LABS: CALCIUM 8.3 mg/dL (8.5-10.3); POTASSIUM 3.2 mmol/L (3.5-5.0)
[2021-01-27] MEDS: INSULIN ASPART 300 UNIT/3 ML PEN SUBQ SCH ×5 (07:43→20:29)
[2021-01-27] MEDS: LACTATED RINGERS 1,000 ML IV SCH ×2 (08:21→16:59)
[2021-01-27] MEDS: amLODIPine 5 MG TABLET PO SCH (08:50)
[2021-01-27] MEDS: carvediloL 12.5 MG TABLET PO SCH ×2 (08:51→20:30)
[2021-01-27] MEDS: APIXABAN 5 MG TABLET PO SCH ×2 (08:51→20:31)
[2021-01-27] MEDS: TAMSULOSIN 0.4 MG CAPSULE PO SCH (08:51)
[2021-01-27] MEDS: PANTOPRAZOLE 40 MG TABLET PO SCH ×2 (08:54→20:31)
[2021-01-27] MEDS: PROCHLORPERAZINE 10 MG/2 ML VIAL IVP PRN (11:45)
--- NOTE | 2021-01-27 12:15 | PROVIDER PROGRESS NOTE ---
Assessment/Plan - Problem List (1) Intractable nausea and vomiting Assessment/Plan: Patient is still nauseated but no vomiting for 24 hours, still needing anti- emetics and to see if he will tolerate advancing his oral intake. In addition, he is very dehydrated by exam today, therefore he still needs continued iv fluids Will increase iv fluid rate from 100cc/hr to 125 cc/hr Follow BMP daily Continue prn iv ant-emetics. (2) Gastroparesis diabeticorum Assessment/Plan: He has gastroparesis from diabetes and probably his use of marijuana adds to his recurrences of nausea and vomiting. Continue with antiemetics as needed and his diabetic management (3) IDDM (insulin dependent diabetes mellitus) Assessment/Plan: Glu was low at 69 this a.m. D50 iv push was ordered. This patient took Lantus 50 units every evening at home but tells me that because he forgot it 1 evening, so he switched to taking it in the morning for the 3 days before being admitted. Glu here are 170- 200's We resumed a Lantus dose at night again but we decreased it from 50 units to 30 units because of his poor p.o. intake. He has had low glu here. We will continue with D5 in his peripheral IV to avoid hypoglycemia. Continue with fingerstick glucose checks and sliding scale insulin coverage. (4) Hypertension, uncontrolled Assessment/Plan: We continued his home doses of carvedilol and amlodipine. Blood pressure was initially intermittently as high as 212 systolic, possibly slightly due to pain IV metoprolol every 6 hours has been ordered if needed and IV hydralazine every 6 hours if needed for extreme blood pressure elevations. We have now increased the Amlodipine to max dose of 10 mg daily Will also increase Coreg to max dose, since resting HR is > 60. (5) Pericardial effusion without cardiac tamponade Assessment/Plan: The last Echo showed a small pericardial effusion. The CT scan of the abdomen, done at admission, remarked on a moderate pericardial effusion being present. An Echo was therefore done here which shows a loculated small pericardial ef fusion laterally and around the RV. It is trivial/small and there are no signs of tamponade and it is chronic. (6) Coronary artery disease Assessment/Plan: This patient underwent coronary angiography in August 2019 and received a stent. We obtained records from [facility] and the details were reviewed. Continue with his post-[place] oral meds (7) BPH (benign prostatic hyperplasia) Assessment/Plan: Continue with his home meds for managing BPH (8) Afib Assessment/Plan: This patient has a history of Afib, DVT and PE in 05/2020. For this he had been put on Warfarin then Xarelto. As per our pharmacist (Isidro) reviewing his medications that were picked up, he was started on Eliquis and the PCP's (Dr Logan's) office note from 07/15/20 stated that the patient will need anticoagulation lifelong due to having Atrial fib. He is currently in NSR per EKG. The patient confirms for me that he has been taking Eliquis twice a day. We will continue with his usual home dose of Eliquis while here. We are continuing his B-norberto. - Current Meds Current Meds: Current Medications Generic Name Dose Route Start Last Admin Trade Name Freq PRN Reason Stop Dose Admin Amlodipine Besylate 10 mg 01/26/21 09:00 01/27/21 08:50 Amlodipine 5 Mg Tablet PO 10 mg DAILY NATHANIEL Administration Apixaban 5 mg 01/24/21 13:00 01/27/21 08:51 Apixaban 5 Mg Tablet PO 5 mg BID NATHANIEL Administration Carvedilol 25 mg 01/25/21 21:04 01/27/21 08:51 Carvedilol 12.5 Mg Tablet PO 25 mg BID NATHANIEL Administration Hydralazine HCl 10 mg 01/24/21 16:12 01/26/21 05:48 Hydralazine Inj 20 Mg/Ml Vial IVP 10 mg Q6H PRN Administration Hypertensive Emergency Lactated Ringer's 1,000 mls @ 100 mls/hr 01/23/21 22:00 01/27/21 08:21 Lr IV 100 mls/hr .Q10H NATHANIEL Administration Insulin Aspart 1 - 9 unit 01/25/21 08:00 01/27/21 12:08 Insulin Aspart 300 Unit/3 Ml Pen SUBQ Not Given 0800,1200,1700,2100 NATHANIEL Protocol Insulin Glargine 30 unit 01/24/21 21:00 01/26/21 21:55 Insulin Glargine 300 Unit/3 Ml Pen SUBQ 25 unit QPM NATHANIEL Administration Metoclopramide HCl 5 mg 01/23/21 22:36 01/27/21 06:45 Metoclopramide 10 Mg/2 Ml Vial IVP 5 mg Q6HR NATHANIEL Administration Metoprolol Tartrate 5 mg 01/23/21 23:05 01/24/21 22:49 Metoprolol 5 Mg/5 Ml Vial IVP 5 mg Q6H PRN Administration Hypertensive Emergency Ondansetron HCl 4 mg 01/23/21 21:51 01/27/21 08:52 Ondansetron 4 Mg/2 Ml Vial IVP 4 mg Q6HR PRN Administration Nausea / Vomiting Oxycodone HCl 5 mg 01/23/21 21:51 01/27/21 00:42 Oxycodone 5 Mg Tablet PO 5 mg Q4HR PRN Administration Pain 5 to 7 Pantoprazole Sodium 40 mg 01/26/21 21:00 01/27/21 08:54 Pantoprazole 40 Mg Tablet PO 40 mg BID NATHANIEL Administration Prochlorperazine Edisylate 10 mg 01/25/21 09:33 01/27/21 11:45 Prochlorperazine 10 Mg/2 Ml Vial IVP 10 mg Q6HR PRN Administration Nausea / Vomiting Sodium Chloride 10 ml 01/23/21 21:51 01/26/21 18:36 Sodium Chloride Flush 0.9% 10 Ml Syringe IVP 10 ml PRN PRN Administration NEEDED PER PROVIDER ORDERS Sodium Chloride 10 ml 01/24/21 01:00 01/27/21 08:54 Sodium Chloride Flush 0.9% 10 Ml Syringe IVP 10 ml 0100,0900,1700 NATHANIEL Administration Tamsulosin HCl 0.4 mg 01/24/21 09:00 01/27/21 08:51 Tamsulosin 0.4 Mg Capsule PO 0.4 mg DAILY NATHANIEL Administration - Lab Result Fish Bone Diagrams: 01/27/21 05:30 01/27/21 05:30 - Additional Planning My Orders: My Active Orders 01/26/21 Dinner Dysphagia Puree Diet [DIET] 01/26/21 21:00 Pantoprazole [Protonix] 40 mg PO BID Subjective - Subjective Patient Reports: Other (He feels minimally better: he is more rested but is dizzy and lightheaded today. He has continued nausea but is intermittently tolerating apple juice and water. He does not want to advance his diet yet) Objective Vital Signs: Vital Signs - 24 hr 01/26/21 01/26/21 01/27/21 15:54 21:00 00:30 Temperature 36.8 C 36.4 C L 36.7 C Heart Rate [ 78 81 74 Brachial] Respiratory 16 16 16 Rate Blood Pressure 122/66 157/85 H [Left Brachial artery] Blood Pressure 102/66 [Right Brachial artery] O2 Saturation 95 94 96 01/27/21 01/27/21 01/27/21 05:29 09:00 11:44 Temperature 36.8 C 37.0 C 36.6 C Heart Rate [ 75 74 78 Brachial] Respiratory 16 16 18 Rate Blood Pressure [Left Brachial artery] Blood Pressure 153/88 H 123/52 L 147/85 H [Right Brachial artery] O2 Saturation 95 95 98 Oxygen O2 Source Room air I&O (Last 24 Hrs): Intake and Output Totals x24h 01/25/21 01/26/21 01/27/21 23:59 23:59 23:59 Intake Total 2745 3071.663 1011.667 Output Total 125 Balance 2620 3071.663 1011.667 General: Alert, Oriented x3 HEENT: Other (Mucosa dry) Neck: Supple, No JVD Neuro: Alert, Non Focal Cardiovascular: Regular rate Respiratory: No respiratory distress Abdomen: Normal bowel sounds, Soft, No tenderness Extremities: No edema, Other (Amputated toes) - Results Results: Laboratory Results WBC 6.3 x10^3/uL (4.8-10.8) 01/27/21 05:30 RBC 4.41 10^6/uL (4.70-6.10) L 01/27/21 05:30 Hgb 13.8 g/dL (14.0-18.0) L 01/27/21 05:30 Hct 40.2 % (42.0-52.0) L 01/27/21 05:30 MCV 91.2 fL (80.0-94.0) 01/27/21 05:30 MCH 31.3 pg (27.0-31.0) H 01/27/21 05:30 MCHC 34.3 g/dL (32.0-36.0) 01/27/21 05:30 RDW 12.5 % (12.0-15.0) 01/27/21 05:30 Plt Count 213 10^3/uL (130-450) 01/27/21 05:30 MPV 9.8 fL (7.4-11.4) 01/27/21 05:30 Neut # (Auto) 4.7 10^3/uL (1.5-6.6) 01/27/21 05:30 Lymph # (Auto) 0.9 10^3/uL (1.5-3.5) L 01/27/21 05:30 Mineral # (Auto) 0.7 10^3/uL (0.0-1.0) 01/27/21 05:30 Eos # (Auto) 0.0 10^3/uL (0.0-0.7) 01/27/21 05:30 Baso # (Auto) 0.0 10^3/uL (0.0-0.1) 01/27/21 05:30 Absolute Nucleated RBC 0.00 x10^3/uL 01/27/21 05:30 Nucleated RBC % 0.0 /100WBC 01/27/21 05:30 VBG pH 7.451 (7.31-7.41) H 01/23/21 16:47 VBG pCO2 27.3 mmHg (41-51) L 01/23/21 16:47 VBG pO2 29.3 mmHg (25-47) 01/23/21 16:47 VBG HCO3 18.6 mmol/L (23-28) L 01/23/21 16:47 VBG Total CO2 19.4 mmol/L (24-29) L 01/23/21 16:47 VBG O2 Saturation 62.8 % (60-80) 01/23/21 16:47 VBG Base Excess -3.5 mmol/L (-2 - +2) L 01/23/21 16:47 Sodium 136 mmol/L (135-145) 01/27/21 05:30 Potassium 3.2 mmol/L (3.5-5.0) L 01/27/21 05:30 Chloride 102 mmol/L (101-111) 01/27/21 05:30 Carbon Dioxide 26 mmol/L (21-32) 01/27/21 05:30 Anion Gap 8.0 (6-13) 01/27/21 05:30 BUN 24 mg/dL (6-20) H 01/27/21 05:30 Creatinine 1.0 mg/dL (0.6-1.2) 01/27/21 05:30 Estimated GFR (MDRD) 75 (>89) L 01/27/21 05:30 Glucose 137 mg/dL (70-100) H 01/27/21 05:30 POC Whole Bld Glucose 112 mg/dL (70 - 100) H 01/27/21 07:27 Calcium 8.3 mg/dL (8.5-10.3) L 01/27/21 05:30 Magnesium 1.7 mg/dL (1.7-2.8) 01/26/21 10:00 Total Bilirubin 2.0 mg/dL (0.2-1.0) H 01/23/21 16:47 AST 36 IU/L (10-42) 01/23/21 16:47 ALT 24 IU/L (10-60) 01/23/21 16:47 Alkaline Phosphatase 101 IU/L (42-121) 01/23/21 16:47 Troponin I High Sens 77.9 ng/L (2.3-19.7) H* 01/24/21 08:51 C-React Prot High Sens 18.7 mg/L 01/23/21 21:37 B-Natriuretic Peptide 126 pg/mL (5-100) H 01/23/21 16:47 Total Protein 8.5 g/dL (6.7-8.2) H 01/23/21 16:47 Albumin 5.3 g/dL (3.2-5.5) 01/23/21 16:47 Globulin 3.2 g/dL (2.1-4.2) 01/23/21 16:47 Albumin/Globulin Ratio 1.7 (1.0-2.2) 01/23/21 16:47 TSH 2.58 uIU/mL (0.34-5.60) 01/23/21 16:47 Urine Color YELLOW 01/23/21 19:12 Urine Clarity CLEAR (CLEAR) 01/23/21 19:12 Urine pH 5.5 PH (5.0-7.5) 01/23/21 19:12 Ur Specific [place] 1.025 (1.002-1.030) 01/23/21 19:12 Urine Protein 100 mg/dL (NEGATIVE) H 01/23/21 19:12 Urine Glucose (UA) >=1000 mg/dL (NEGATIVE) H 01/23/21 19:12 Urine Ketones >=80 mg/dL (NEGATIVE) H 01/23/21 19:12 Urine Occult Blood MODERATE (NEGATIVE) H 01/23/21 19:12 Urine Nitrite NEGATIVE (NEGATIVE) 01/23/21 19:12 Urine Bilirubin NEGATIVE (NEGATIVE) 01/23/21 19:12 Urine Urobilinogen 0.2 (NORMAL) E.U./dL (NORMAL) 01/23/21 19:12 Ur Leukocyte Esterase NEGATIVE (NEGATIVE) 01/23/21 19:12 Urine RBC 0-5 /HPF (0-5) 01/23/21 19:12 Urine WBC 0-3 /HPF (0-3) 01/23/21 19:12 Ur Squamous Epith Cells RARE Squamous (<= Few) 01/23/21 19:12 Urine Bacteria Rare /HPF (None Seen) 01/23/21 19:12 Urine Casts 0-2 Fine Granular /LPF0-2 Hyaline Casts /LPF 01/23/21 19:12 Urine Casts 0-2 Fine Granular /LPF0-2 Hyaline Casts /LPF 01/23/21 19:12 Ur Microscopic Review INDICATED 01/23/21 19:12 Urine Culture Comments NOT INDICATED 01/23/21 19:12 Nasal Adenovirus (PCR) NOT DETECTED 01/23/21 21:18 Nasal B. parapertussis DNA (PCR) NOT DETECTED 01/23/21 21:18 Nasal Coronavir 229E PCR NOT DETECTED 01/23/21 21:18 Nasal Coronavir HKU1 PCR NOT DETECTED 01/23/21 21:18 Nasal Coronavir NL63 PCR NOT DETECTED 01/23/21 21:18 Nasal Coronavir OC43 PCR NOT DETECTED 01/23/21 21:18 Nasal Enterovir/Rhinovir PCR NOT DETECTED 01/23/21 21:18 Nasal Influenza B PCR NOT DETECTED 01/23/21 21:18 Nasal Influenza A PCR NOT DETECTED 01/23/21 21:18 Nasal Parainfluen 1 PCR NOT DETECTED 01/23/21 21:18 Nasal Parainfluen 2 PCR NOT DETECTED 01/23/21 21:18 Nasal Parainfluen 3 PCR NOT DETECTED 01/23/21 21:18 Nasal Parainfluen 4 PCR NOT DETECTED 01/23/21 21:18 Nasal RSV (PCR) NOT DETECTED 01/23/21 21:18 Nasal B.pertussis DNA PCR NOT DETECTED 01/23/21 21:18 Nasal C.pneumoniae (PCR) NOT DETECTED 01/23/21 21:18 Nilesh Human Metapneumo PCR NOT DETECTED 01/23/21 21:18 Nasal M.pneumoniae (PCR) NOT DETECTED 01/23/21 21:18 Nasal SARS-CoV-2 (PCR) NOT DETECTED 01/23/21 21:18 Urine Opiates Screen NEGATIVE (NEGATIVE) 01/23/21 19:12 Ur Oxycodone Screen NEGATIVE (NEGATIVE) 01/23/21 19:12 Urine Methadone Screen NEGATIVE (NEGATIVE) 01/23/21 19:12 Ur Propoxyphene Screen NEGATIVE (NEGATIVE) 01/23/21 19:12 Ur Barbiturates Screen NEGATIVE (NEGATIVE) 01/23/21 19:12 Ur Tricyclics Screen NEGATIVE (NEGATIVE) 01/23/21 19:12 Ur Phencyclidine Scrn NEGATIVE (NEGATIVE) 01/23/21 19:12 Ur Amphetamine Screen NEGATIVE (NEGATIVE) 01/23/21 19:12 U Methamphetamines Scrn NEGATIVE (NEGATIVE) 01/23/21 19:12 U Benzodiazepines Scrn NEGATIVE (NEGATIVE) 01/23/21 19:12 Urine Cocaine Screen NEGATIVE (NEGATIVE) 01/23/21 19:12 U Cannabinoids Screen POSITIVE (NEGATIVE) H 01/23/21 19:12 Serum Ketones NEGATIVE (NEGATIVE) 01/23/21 16:47 - Procedures Procedures: Procedures DETACHMENT AT LEFT FOOT, PARTIAL 5TH RAY, OPEN APPROACH (12/20/19) EXCISION OF LEFT METATARSAL, OPEN APPROACH (12/06/19) INSERTION OF INFUSION DEV INTO SUP VENA CAVA, PERC APPROACH (05/28/20) INSERTION OF INFUSION DEVICE INTO R ATRIUM, PERC APPROACH (06/09/19) ULTRASONOGRAPHY OF SUPERIOR VENA CAVA, GUIDANCE (06/09/19)
--- NOTE | 2021-01-27 17:20 | PROVIDER PROGRESS NOTE ---
Assessment/Plan - Problem List (1) Intractable nausea and vomiting Assessment/Plan: Patient is still nauseated but no vomiting for >24 hours, still needing anti- emetics and to see if he will tolerate advancing his oral intake. In addition, he was still dehydrated, therefore he still needs continued iv flui ds Continue iv fluid rate at 125 cc/hr Follow BMP daily Continue prn iv ant-emetics. (2) Gastroparesis diabeticorum Assessment/Plan: He has gastroparesis from diabetes and probably his use of marijuana adds to his recurrences of nausea and vomiting. Continue with antiemetics as needed and his diabetic management (3) IDDM (insulin dependent diabetes mellitus) Assessment/Plan: This patient took Lantus 50 units every evening at home but tells me that because he forgot it 1 evening, so he switched to taking it in the morning for the 3 days before being admitted. Glu here are 70- 200's He is on his Lantus dose at night again but we decreased it from 50 units to 30 units because of his poor p.o. intake. He has had low glu here. We will continue with D5 in his peripheral IV to avoid hypoglycemia. Continue with fingerstick glucose checks and sliding scale insulin coverage. Advance to cc diet as tolerated (4) Hypertension, uncontrolled Assessment/Plan: We first continued his home doses of carvedilol and amlodipine. Blood pressure was initially intermittently as high as 212 systolic, possibly slightly due to pain IV metoprolol every 6 hours has been ordered if needed and IV hydralazine every 6 hours if needed for extreme blood pressure elevations. We have now increased the Amlodipine to max dose of 10 mg daily We also increased Coreg to max dose, since resting HR is > 60. (5) Pericardial effusion without cardiac tamponade Assessment/Plan: The last Echo showed a small pericardial effusion. The CT scan of the abdomen, done at admission, remarked on a moderate pericardial effusion being present. An Echo was therefore done here which shows a loculated small pericardial effusion laterally and around the RV. It is trivial/small and there are no signs of tamponade and it is chronic. (6) Coronary artery disease Assessment/Plan: This patient underwent coronary angiography in August 2019 and received a stent. We obtained records from [facility] and the details were reviewed. Continue with his post-NC oral meds (7) BPH (benign prostatic hyperplasia) Assessment/Plan: Continue with his home meds for managing BPH (8) Afib Assessment/Plan: This patient has a history of Afib, DVT and PE in 05/2020. For this he had been put on Warfarin then Xarelto. Then he was started on Eliquis and the PCP's (Dr Logan's) office note from 07/15/20 stated that the patient will need anticoagulation lifelong due to having Atrial fib. He is currently in NSR per EKG. The patient confirms for me that he has been taking Eliquis twice a day. We will continue with his usual home dose of Eliquis while here. We are continuing his B-norberto. - Current Meds Current Meds: Current Medications Generic Name Dose Route Start Last Admin Trade Name Freq PRN Reason Stop Dose Admin Amlodipine Besylate 10 mg 01/26/21 09:00 01/27/21 08:50 Amlodipine 5 Mg Tablet PO 10 mg DAILY NATHANIEL Administration Apixaban 5 mg 01/24/21 13:00 01/27/21 08:51 Apixaban 5 Mg Tablet PO 5 mg BID NATHANIEL Administration Carvedilol 25 mg 01/25/21 21:04 01/27/21 08:51 Carvedilol 12.5 Mg Tablet PO 25 mg BID NATHANIEL Administration Hydralazine HCl 10 mg 01/24/21 16:12 01/26/21 05:48 Hydralazine Inj 20 Mg/Ml Vial IVP 10 mg Q6H PRN Administration Hypertensive Emergency Lactated Ringer's 1,000 mls @ 100 mls/hr 01/23/21 22:00 01/27/21 16:59 Lr IV 100 mls/hr .Q10H NATHANIEL Administration Insulin Aspart 1 - 9 unit 01/25/21 08:00 01/27/21 16:59 Insulin Aspart 300 Unit/3 Ml Pen SUBQ 1 unit 0800,1200,1700,2100 NATHANIEL Administration Protocol Insulin Glargine 30 unit 01/24/21 21:00 01/26/21 21:55 Insulin Glargine 300 Unit/3 Ml Pen SUBQ 25 unit QPM NATHANIEL Administration Metoclopramide HCl 5 mg 01/23/21 22:36 01/27/21 17:00 Metoclopramide 10 Mg/2 Ml Vial IVP 5 mg Q6HR NATHANIEL Administration Metoprolol Tartrate 5 mg 01/23/21 23:05 01/24/21 22:49 Metoprolol 5 Mg/5 Ml Vial IVP 5 mg Q6H PRN Administration Hypertensive Emergency Ondansetron HCl 4 mg 01/23/21 21:51 01/27/21 08:52 Ondansetron 4 Mg/2 Ml Vial IVP 4 mg Q6HR PRN Administration Nausea / Vomiting Oxycodone HCl 5 mg 01/23/21 21:51 01/27/21 00:42 Oxycodone 5 Mg Tablet PO 5 mg Q4HR PRN Administration Pain 5 to 7 Pantoprazole Sodium 40 mg 01/26/21 21:00 01/27/21 08:54 Pantoprazole 40 Mg Tablet PO 40 mg BID NATHANIEL Administration Prochlorperazine Edisylate 10 mg 01/25/21 09:33 01/27/21 11:45 Prochlorperazine 10 Mg/2 Ml Vial IVP 10 mg Q6HR PRN Administration Nausea / Vomiting Sodium Chloride 10 ml 01/23/21 21:51 01/26/21 18:36 Sodium Chloride Flush 0.9% 10 Ml Syringe IVP 10 ml PRN PRN Administration NEEDED PER PROVIDER ORDERS Sodium Chloride 10 ml 01/24/21 01:00 01/27/21 16:58 Sodium Chloride Flush 0.9% 10 Ml Syringe IVP Not Given 0100,0900,1700 [facility] Tamsulosin HCl 0.4 mg 01/24/21 09:00 01/27/21 08:51 Tamsulosin 0.4 Mg Capsule PO 0.4 mg DAILY NATHANIEL Administration - Lab Result Fish Bone Diagrams: 01/27/21 05:30 01/27/21 05:30 - Additional Planning My Orders: My Active Orders 01/26/21 21:00 Pantoprazole [Protonix] 40 mg PO BID 01/27/21 Dinner DIET [Soft (Low Fiber) Diet] [DIET] Subjective - Subjective Patient Reports: Other (There is less nausea and no vomiting for a day and a half. He still worried he will get incessant vomiting if he advances his diet but is not interested in pure, wants to try cottage cheese and some soft food) Objective Vital Signs: Vital Signs - 24 hr 01/26/21 01/27/21 01/27/21 21:00 00:30 05:29 Temperature 36.4 C L 36.7 C 36.8 C Heart Rate [ 81 74 75 Brachial] Respiratory 16 16 16 Rate Blood Pressure 157/85 H [Left Brachial artery] Blood Pressure 102/66 153/88 H [Right Brachial artery] O2 Saturation 94 96 95 01/27/21 01/27/21 01/27/21 09:00 11:44 16:05 Temperature 37.0 C 36.6 C 36.9 C Heart Rate [ 74 78 76 Brachial] Respiratory 16 18 16 Rate Blood Pressure [Left Brachial artery] Blood Pressure 123/52 L 147/85 H 150/90 H [Right Brachial artery] O2 Saturation 95 98 97 Oxygen O2 Source Room air I&O (Last 24 Hrs): Intake and Output Totals x24h 01/25/21 01/26/21 01/27/21 23:59 23:59 23:59 Intake Total 2745 3071.663 2175.000 Output Total 125 Balance 2620 3071.663 2175.000 General: Alert HEENT: Other (Dry mucosa) Neck: Supple, No JVD Neuro: Alert, Non Focal Cardiovascular: Regular rate Respiratory: No respiratory distress Abdomen: Soft Extremities: No edema (Several toes amputated) - Results Results: Laboratory Results WBC 6.3 x10^3/uL (4.8-10.8) 01/27/21 05:30 RBC 4.41 10^6/uL (4.70-6.10) L 01/27/21 05:30 Hgb 13.8 g/dL (14.0-18.0) L 01/27/21 05:30 Hct 40.2 % (42.0-52.0) L 01/27/21 05:30 MCV 91.2 fL (80.0-94.0) 01/27/21 05:30 MCH 31.3 pg (27.0-31.0) H 01/27/21 05:30 MCHC 34.3 g/dL (32.0-36.0) 01/27/21 05:30 RDW 12.5 % (12.0-15.0) 01/27/21 05:30 Plt Count 213 10^3/uL (130-450) 01/27/21 05:30 MPV 9.8 fL (7.4-11.4) 01/27/21 05:30 Neut # (Auto) 4.7 10^3/uL (1.5-6.6) 01/27/21 05:30 Lymph # (Auto) 0.9 10^3/uL (1.5-3.5) L 01/27/21 05:30 Roberts # (Auto) 0.7 10^3/uL (0.0-1.0) 01/27/21 05:30 Eos # (Auto) 0.0 10^3/uL (0.0-0.7) 01/27/21 05:30 Baso # (Auto) 0.0 10^3/uL (0.0-0.1) 01/27/21 05:30 Absolute Nucleated RBC 0.00 x10^3/uL 01/27/21 05:30 Nucleated RBC % 0.0 /100WBC 01/27/21 05:30 VBG pH 7.451 (7.31-7.41) H 01/23/21 16:47 VBG pCO2 27.3 mmHg (41-51) L 01/23/21 16:47 VBG pO2 29.3 mmHg (25-47) 01/23/21 16:47 VBG HCO3 18.6 mmol/L (23-28) L 01/23/21 16:47 VBG Total CO2 19.4 mmol/L (24-29) L 01/23/21 16:47 VBG O2 Saturation 62.8 % (60-80) 01/23/21 16:47 VBG Base Excess -3.5 mmol/L (-2 - +2) L 01/23/21 16:47 Sodium 136 mmol/L (135-145) 01/27/21 05:30 Potassium 3.2 mmol/L (3.5-5.0) L 01/27/21 05:30 Chloride 102 mmol/L (101-111) 01/27/21 05:30 Carbon Dioxide 26 mmol/L (21-32) 01/27/21 05:30 Anion Gap 8.0 (6-13) 01/27/21 05:30 BUN 24 mg/dL (6-20) H 01/27/21 05:30 Creatinine 1.0 mg/dL (0.6-1.2) 01/27/21 05:30 Estimated GFR (MDRD) 75 (>89) L 01/27/21 05:30 Glucose 137 mg/dL (70-100) H 01/27/21 05:30 POC Whole Bld Glucose 160 mg/dL (70 - 100) H 01/27/21 16:46 Calcium 8.3 mg/dL (8.5-10.3) L 01/27/21 05:30 Magnesium 1.7 mg/dL (1.7-2.8) 01/26/21 10:00 Total Bilirubin 2.0 mg/dL (0.2-1.0) H 01/23/21 16:47 AST 36 IU/L (10-42) 01/23/21 16:47 ALT 24 IU/L (10-60) 01/23/21 16:47 Alkaline Phosphatase 101 IU/L (42-121) 01/23/21 16:47 Troponin I High Sens 77.9 ng/L (2.3-19.7) H* 01/24/21 08:51 C-React Prot High Sens 18.7 mg/L 01/23/21 21:37 B-Natriuretic Peptide 126 pg/mL (5-100) H 01/23/21 16:47 Total Protein 8.5 g/dL (6.7-8.2) H 01/23/21 16:47 Albumin 5.3 g/dL (3.2-5.5) 01/23/21 16:47 Globulin 3.2 g/dL (2.1-4.2) 01/23/21 16:47 Albumin/Globulin Ratio 1.7 (1.0-2.2) 01/23/21 16:47 TSH 2.58 uIU/mL (0.34-5.60) 01/23/21 16:47 Urine Color YELLOW 01/23/21 19:12 Urine Clarity CLEAR (CLEAR) 01/23/21 19:12 Urine pH 5.5 PH (5.0-7.5) 01/23/21 19:12 Ur Specific Girard 1.025 (1.002-1.030) 01/23/21 19:12 Urine Protein 100 mg/dL (NEGATIVE) H 01/23/21 19:12 Urine Glucose (UA) >=1000 mg/dL (NEGATIVE) H 01/23/21 19:12 Urine Ketones >=80 mg/dL (NEGATIVE) H 01/23/21 19:12 Urine Occult Blood MODERATE (NEGATIVE) H 01/23/21 19:12 Urine Nitrite NEGATIVE (NEGATIVE) 01/23/21 19:12 Urine Bilirubin NEGATIVE (NEGATIVE) 01/23/21 19:12 Urine Urobilinogen 0.2 (NORMAL) E.U./dL (NORMAL) 01/23/21 19:12 Ur Leukocyte Esterase NEGATIVE (NEGATIVE) 01/23/21 19:12 Urine RBC 0-5 /HPF (0-5) 01/23/21 19:12 Urine WBC 0-3 /HPF (0-3) 01/23/21 19:12 Ur Squamous Epith Cells RARE Squamous (<= Few) 01/23/21 19:12 Urine Bacteria Rare /HPF (None Seen) 01/23/21 19:12 Urine Casts 0-2 Fine Granular /LPF0-2 Hyaline Casts /LPF 01/23/21 19:12 Urine Casts 0-2 Fine Granular /LPF0-2 Hyaline Casts /LPF 01/23/21 19:12 Ur Microscopic Review INDICATED 01/23/21 19:12 Urine Culture Comments NOT INDICATED 01/23/21 19:12 Nasal Adenovirus (PCR) NOT DETECTED 01/23/21 21:18 Nasal B. parapertussis DNA (PCR) NOT DETECTED 01/23/21 21:18 Nasal Coronavir 229E PCR NOT DETECTED 01/23/21 21:18 Nasal Coronavir HKU1 PCR NOT DETECTED 01/23/21 21:18 Nasal Coronavir NL63 PCR NOT DETECTED 01/23/21 21:18 Nasal Coronavir OC43 PCR NOT DETECTED 01/23/21 21:18 Nasal Enterovir/Rhinovir PCR NOT DETECTED 01/23/21 21:18 Nasal Influenza B PCR NOT DETECTED 01/23/21 21:18 Nasal Influenza A PCR NOT DETECTED 01/23/21 21:18 Nasal Parainfluen 1 PCR NOT DETECTED 01/23/21 21:18 Nasal Parainfluen 2 PCR NOT DETECTED 01/23/21 21:18 Nasal Parainfluen 3 PCR NOT DETECTED 01/23/21 21:18 Nasal Parainfluen 4 PCR NOT DETECTED 01/23/21 21:18 Nasal RSV (PCR) NOT DETECTED 01/23/21 21:18 Nasal B.pertussis DNA PCR NOT DETECTED 01/23/21 21:18 Nasal C.pneumoniae (PCR) NOT DETECTED 01/23/21 21:18 Nilesh Human Metapneumo PCR NOT DETECTED 01/23/21 21:18 Nasal M.pneumoniae (PCR) NOT DETECTED 01/23/21 21:18 Nasal SARS-CoV-2 (PCR) NOT DETECTED 01/23/21 21:18 Urine Opiates Screen NEGATIVE (NEGATIVE) 01/23/21 19:12 Ur Oxycodone Screen NEGATIVE (NEGATIVE) 01/23/21 19:12 Urine Methadone Screen NEGATIVE (NEGATIVE) 01/23/21 19:12 Ur Propoxyphene Screen NEGATIVE (NEGATIVE) 01/23/21 19:12 Ur Barbiturates Screen NEGATIVE (NEGATIVE) 01/23/21 19:12 Ur Tricyclics Screen NEGATIVE (NEGATIVE) 01/23/21 19:12 Ur Phencyclidine Scrn NEGATIVE (NEGATIVE) 01/23/21 19:12 Ur Amphetamine Screen NEGATIVE (NEGATIVE) 01/23/21 19:12 U Methamphetamines Scrn NEGATIVE (NEGATIVE) 01/23/21 19:12 U Benzodiazepines Scrn NEGATIVE (NEGATIVE) 01/23/21 19:12 Urine Cocaine Screen NEGATIVE (NEGATIVE) 01/23/21 19:12 U Cannabinoids Screen POSITIVE (NEGATIVE) H 01/23/21 19:12 Serum Ketones NEGATIVE (NEGATIVE) 01/23/21 16:47 - Procedures Procedures: Procedures DETACHMENT AT LEFT FOOT, PARTIAL 5TH RAY, OPEN APPROACH (12/20/19) EXCISION OF LEFT METATARSAL, OPEN APPROACH (12/06/19) INSERTION OF INFUSION DEV INTO SUP VENA CAVA, PERC APPROACH (05/28/20) INSERTION OF INFUSION DEVICE INTO R ATRIUM, PERC APPROACH (06/09/19) ULTRASONOGRAPHY OF SUPERIOR VENA CAVA, GUIDANCE (06/09/19)
[2021-01-27] MEDS: INSULIN GLARGINE 300 UNIT/3 ML PEN SUBQ SCH (20:26)
[2021-01-28] MEDS: METOCLOPRAMIDE 10 MG/2 ML VIAL IVP SCH ×3 (01:17→12:27)
[2021-01-28] MEDS: PROCHLORPERAZINE 10 MG/2 ML VIAL IVP PRN (01:18)
[2021-01-28] MEDS: SODIUM CHLORIDE FLUSH 0.9% 10 ML SYRINGE IVP SCH ×2 (01:19→09:21)
[2021-01-28] MEDS: LACTATED RINGERS 1,000 ML IV SCH (01:26)
[2021-01-28] MEDS ORDERED: DEXTROSE 10% 250 ML IV STA (07:15)
[2021-01-28] MEDS ORDERED: DEXTROSE 10% 1,000 ML IV ONE (07:19)
[2021-01-28] MEDS ORDERED: D5NS W/20 MEQ KCL 1,000 ML IV SCH (08:00)
[2021-01-28] MEDS: INSULIN ASPART 300 UNIT/3 ML PEN SUBQ SCH ×2 (09:20→12:27)
[2021-01-28] MEDS ORDERED: DEXTROSE 10% 250 ML IV SCH (12:05)
[2021-01-28] MEDS: PANTOPRAZOLE 40 MG TABLET PO SCH (12:12)
[2021-01-28] MEDS: carvediloL 12.5 MG TABLET PO SCH (12:12)
[2021-01-28] MEDS: SODIUM CHLORIDE FLUSH 0.9% 10 ML SYRINGE IVP PRN (12:17)
[2021-01-28] MEDS: APIXABAN 5 MG TABLET PO SCH (12:27)
--- NOTE | 2021-01-28 13:13 | Discharge Plan ---
Discharge Plan Problem Reviewed?: Yes Disposition: Home, Self Care Condition: Fair Diet: Diabetic Activity Restrictions: Activity as Tolerated Shower Restrictions: No Assistance Devices: Cane Health Concerns: You were admitted to manage dehydration and your long lasting nausea and vomiting. During this time your blood glucose levels were significantly low despite being on IV glucose. Now that you are able to tolerate liquids and solids, please advance your diet as you can tolerate, and stop using marijuana, which is adding to your nausea and vomiting. DECREASE your long-acting (Lantus) insulin at night down to 25 units or lower, because of these sales exhibitor, very low and dangerous glucose levels. You may resume all your other usual medications that you take. Stay well hydrated. Please see your primary care provider for hospital follow-up in the next 1 to 2 weeks. Plan of Treatment: As above. Care Goals: Improvement in symptoms and stabilization are the goals. Assessment: Patient understands and is agreeable with the plan. Additional Instructions or Follow Up instructions: If you have new or worsening symptoms, call your PCP for advice or come to the ER. No Smoking: If you smoke, Please STOP! Call for help. Follow-up with: Luis Logan MD [Primary Care Provider] -
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
[2021-01-28 15:45] VITALS: BP 155/75
[2021-01-28] MEDS ORDERED: TAMSULOSIN 0.4 MG CAPSULE PO SCH (21:00)
[2021-01-28] MEDS ORDERED: amLODIPine 5 MG TABLET PO SCH (21:00)
== END 2021-01-28 16:00 | disposition home or self-care (01) | DRG 74 ==
LOC: ED 15:46 → MS2 21:51 → OBSVTOIN 01-24 15:19
PROVIDERS: ADMIT Specialist; ATTEND Internal Medicine
DX: E10.43 Type 1 diabetes mellitus with diabetic autonomic (poly)neuropathy (principal); N17.9 Acute kidney failure, unspecified; I31.3 Pericardial effusion (noninflammatory); K31.84 Gastroparesis; E10.42 Type 1 diabetes mellitus with diabetic polyneuropathy; E10.621 Type 1 diabetes mellitus with foot ulcer; L97.529 Non-pressure chronic ulcer of other part of left foot with unspecified severity; F91.9 Conduct disorder, unspecified; I12.9 Hypertensive chronic kidney disease with stage 1 through stage 4 chronic kidney disease, or unspecified chronic kidney disease; E10.22 Type 1 diabetes mellitus with diabetic chronic kidney disease; R77.8 Other specified abnormalities of plasma proteins; N18.9 Chronic kidney disease, unspecified; E86.0 Dehydration; E78.5 Hyperlipidemia, unspecified; T40.711A Poisoning by cannabis, accidental (unintentional), initial encounter; R11.2 Nausea with vomiting, unspecified; E10.649 Type 1 diabetes mellitus with hypoglycemia without coma; I48.91 Unspecified atrial fibrillation; I25.10 Atherosclerotic heart disease of native coronary artery without angina pectoris; Z20.822 Contact with and (suspected) exposure to COVID-19; K21.9 Gastro-esophageal reflux disease without esophagitis; K44.9 Diaphragmatic hernia without obstruction or gangrene; N40.0 Benign prostatic hyperplasia without lower urinary tract symptoms; H54.7 Unspecified visual loss; H91.90 Unspecified hearing loss, unspecified ear; F40.240 Claustrophobia; M19.90 Unspecified osteoarthritis, unspecified site; Z72.89 Other problems related to lifestyle; Z87.19 Personal history of other diseases of the digestive system; Z89.429 Acquired absence of other toe(s), unspecified side; I25.2 Old myocardial infarction; Z79.01 Long term (current) use of anticoagulants; Z79.4 Long term (current) use of insulin; Z79.82 Long term (current) use of aspirin; Z79.899 Other long term (current) drug therapy; Z95.5 Presence of coronary angioplasty implant and graft; Z86.718 Personal history of other venous thrombosis and embolism; Z86.711 Personal history of pulmonary embolism; Z91.19 Patient's noncompliance with other medical treatment and regimen
CPT/HCPCS: 36415; 71045; 74177; 80048; 80053; 80306; 81001; 82009; 82803; 83735; 83880; 84443; 84484; 85025; 86141; 87631; 93005; 93306; 96361; 96374; 96375; 96376; A9270; G0378; J1815; J2765; J7120; Q0162; Q9967; 0202U; 81003; 85651; 87086

== ENCOUNTER 2021-03-28 08:33 | Outpatient (CLI) | payer MEDICARE, OTHER | END 2021-03-28 08:34 | disposition critical access hospital (66) | LOC: EMS 08:33 | DX: K92.0 Hematemesis (principal); R06.02 Shortness of breath | CPT/HCPCS: A0425; A0427 ==

== ENCOUNTER 2021-03-28 09:16 | Inpatient (IN) | payer MEDICARE, OTHER ==
[2021-03-28] MEDS ORDERED: SODIUM CHLORIDE 0.9% 1,000 ML IV STA ×2 (09:33→09:53)
[2021-03-28] MEDS ORDERED: diphenhydrAMINE INJ 50 MG/ML VIAL IVP STA (09:34)
[2021-03-28] MEDS ORDERED: PROMETHAZINE INJ 25 MG in SODIUM CHLORIDE 0.9% 50 ML IV STA (09:34)
[2021-03-28 09:56] LABS: BASOPHILS % (AUTO) 0.2 %; HCT - HEMATOCRIT 47.5 % (42.0-52.0); HGB - HEMOGLOBIN 15.9 g/dL (14.0-18.0); LYMPHOCYTES # (AUTO) 0.4 10^3/uL (1.5-3.5); LYMPHOCYTES % (AUTO) 1.9 %; MEAN CORPUSCULAR HEMOGLOBIN 30.6 pg (27.0-31.0); MEAN CORPUSCULAR HGB CONC 33.5 g/dL (32.0-36.0); MEAN CORPUSCULAR VOLUME 91.5 fL (80.0-94.0); MEAN PLATELET VOLUME 10.8 fL (7.4-11.4); MONOCYTES # (AUTO) 1.5 10^3/uL (0.0-1.0); MONOCYTES % (AUTO) 7.6 %; NEUTROPHILS # (AUTO) 17.5 10^3/uL (1.5-6.6); NEUTROPHILS % (AUTO) 89.7 %; PLT - PLATELET COUNT 322 10^3/uL (130-450); RED BLOOD COUNT 5.19 10^6/uL (4.70-6.10); RED CELL DISTRIBUTION WIDTH 13.3 % (12.0-15.0); WHITE BLOOD COUNT 19.5 x10^3/uL (4.8-10.8)
[2021-03-28 09:59] LABS: VBG HCO3 11.6 mmol/L (23-28); VBG OXYGEN SATURATION 87.4 % (60-80); VBG PCO2 27.5 mmHg (41-51); VBG PH 7.244 (7.31-7.41); VBG PO2 62.7 mmHg (25-47); VBG TOTAL CO2 12.5 mmol/L (24-29)
[2021-03-28] MEDS ORDERED: PROMETHAZINE 25 MG/1 ML VIAL ONE (10:03)
[2021-03-28 10:23] LABS: KETONES, SERUM (ACETEST) MODERATE (NEGATIVE)
[2021-03-28 10:26] LABS: ALBUMIN 4.6 g/dL (3.2-5.5); ALBUMIN/GLOBULIN RATIO 1.4 (1.0-2.2); ALKALINE PHOSPHATASE 84 IU/L (42-121); ALT ALANINE AMINOTRANSFERASE 20 IU/L (10-60); AST ASPARTATE AMINOTRANSFERASE 30 IU/L (10-42); BILIRUBIN,TOTAL 2.3 mg/dL (0.2-1.0); BUN - BLOOD UREA NITROGEN 42 mg/dL (6-20); CALCIUM 9.3 mg/dL (8.5-10.3); CHLORIDE 90 mmol/L (101-111); CREATININE 2.1 mg/dL (0.6-1.2); ETOH - ETHANOL < 5.0 mg/dL; GFR - MDRD 32 (>89); LIPASE 85 U/L (22-51); POTASSIUM 4.1 mmol/L (3.5-5.0); SODIUM 132 mmol/L (135-145); TOTAL PROTEIN 7.9 g/dL (6.7-8.2)
[2021-03-28] MEDS ORDERED: INSULIN REGULAR HUMAN 100 UNIT in SODIUM CHLORIDE 0.9% 100ML 99 ML IV STA (10:27)
[2021-03-28 10:29] LABS: CARBON DIOXIDE - CO2 12 mmol/L (21-32); GLUCOSE 900 mg/dL (70-100)
--- NOTE | 2021-03-28 10:30 | ED Physician Documentation ---
History of Present Illness - Stated complaint Stated Complaint: SOA - Chief complaint Chief Complaint: Resp - History obtained from History obtained from: Patient - History of Present Illness Timing: Today Pain level max: 4 Pain level now: 4 - Additonal information Additional information: 65-year-old male, history of diabetes and gastroparesis presents to the emergency department with vomiting and feeling generally unwell. Nothing makes it better or worse. Blood sugar was too high to read earlier today. Review of Systems Ten Systems: 10 systems reviewed and negative Constitutional: denies: Fever, Chills Ears: denies: Ear pain Nose: denies: Rhinorrhea / runny nose, Congestion Throat: denies: Sore throat Respiratory: reports: Dyspnea. denies: Cough GI: reports: Nausea, Vomiting. denies: Diarrhea, Hematemesis, Bloody / black stool : denies: Dysuria Skin: denies: Rash Musculoskeletal: denies: Neck pain, Back pain Neurologic: denies: Headache PD PAST MEDICAL HISTORY - Past Medical History Cardiovascular: Hypertension, High cholesterol, [place], Atrial fibrillation Respiratory: None Neuro: None, Peripheral neuropathy, Other Endocrine/Autoimmune: Type 2 diabetes GI: GERD : Benign prostate hypertrophy HEENT: Chronic vision loss, Other Psych: Claustrophobia Musculoskeletal: Osteoarthritis Derm: None - Past Surgical History Past Surgical History: Yes General: Appendectomy Ortho: Amputation, Other Cardiovascular: Other - Present Medications Home Medications: Ambulatory Orders Medication Instructions Recorded Confirmed Tamsulosin [Flomax] 0.4 mg PO DAILY 06/09/19 03/28/21 Metoclopramide [Reglan] 10 mg PO TID PRN 12/07/19 03/28/21 Ondansetron Odt [Zofran Odt] 4 mg PO Q6H PRN 05/29/20 03/28/21 Apixaban [Eliquis] 5 mg PO BID 01/24/21 03/28/21 Omeprazole 40 mg PO DAILY 01/24/21 03/28/21 Insulin Aspart [Novolog Flexpen] 5 - 8 unit SQ TIDWM 02/24/21 03/28/21 Insulin Glargine [Lantus Solostar] 70 units SUBQ QPM 02/24/21 03/28/21 - Allergies Allergies/Adverse Reactions: Allergies Allergy/AdvReac Type Severity Reaction Status Date / Time No Known Drug Allergies Allergy Verified 03/28/21 13:49 - Social History Does the pt smoke?: Yes Smoking Status: Never smoker Does the pt drink ETOH?: No Does the pt have substance abuse?: Yes - Immunizations Immunizations are current?: Yes - POLST Patient has POLST: No POLST Status: Full Code PD ED PE NORMAL - Vitals Vital signs reviewed: Yes - General General: Alert and oriented X 3, Well developed/nourished, Other ([place]maul breathing) - HEENT HEENT: PERRL - Neck Neck: Supple, no meningeal sign - Cardiac Cardiac: Strong equal pulses, Other (tachycardic) - Respiratory Respiratory: Clear bilaterally, Other (Kussmaul breathing) - Abdomen Abdomen: Soft, Non tender, Non distended - Derm Derm: Warm and dry - Extremities Extremities: No edema, No calf tenderness / cord - Neuro Neuro: Alert and oriented X 3 - Psych Psych: Normal mood, Normal affect Results - Vitals Vitals: Vital Signs - 24 hr 03/28/21 03/28/21 03/28/21 09:18 10:23 10:25 Temperature 36.2 C L 36.5 C Heart Rate 123 H 125 H 122 H Respiratory 26 H 29 H 23 Rate Blood Pressure 118/72 180/70 H O2 Saturation 98 100 100 03/28/21 03/28/21 11:39 13:32 Temperature Heart Rate 119 H 121 H Respiratory 24 24 Rate Blood Pressure 153/98 H O2 Saturation 97 98 Oxygen O2 Source Room air - EKG (time done) 0929 Rate: Rate (enter#) (122) Rhythm: Sinus tachycardia [place]: Normal Intervals: Normal [place] QRS: Normal Ischemia: Non specific changes - Labs Labs: Laboratory Tests 03/28/21 03/28/21 03/28/21 09:50 09:50 09:50 WBC 19.5 H RBC 5.19 Hgb 15.9 Hct 47.5 MCV 91.5 MCH 30.6 MCHC 33.5 RDW 13.3 Plt Count 322 MPV 10.8 Neut # (Auto) 17.5 H Lymph # (Auto) 0.4 L [place] # (Auto) 1.5 H Eos # (Auto) 0.0 Baso # (Auto) 0.0 Absolute Nucleated RBC 0.00 Nucleated RBC % 0.0 VBG pH 7.244 L VBG pCO2 27.5 L VBG pO2 62.7 H VBG HCO3 11.6 L VBG Total CO2 12.5 L VBG O2 Saturation 87.4 H VBG Base Excess -14.0 L Sodium 132 L Potassium 4.1 Chloride 90 L Carbon Dioxide 12 L* Anion Gap 30.0 H BUN 42 H Creatinine 2.1 H Estimated GFR (MDRD) 32 L Glucose 900 H* Calcium 9.3 Total Bilirubin 2.3 H AST 30 ALT 20 Alkaline Phosphatase 84 Total Protein 7.9 Albumin 4.6 Globulin 3.3 Albumin/Globulin Ratio 1.4 Lipase 85 H Urine Color Urine Clarity Urine pH Ur Specific [place] Urine Protein Urine Glucose (UA) Urine Ketones Urine Occult Blood Urine Nitrite Urine Bilirubin Urine Urobilinogen Ur Leukocyte Esterase Urine RBC Urine WBC Ur Squamous Epith Cells Urine Bacteria Ur Microscopic Review Urine Culture Comments Nasal Adenovirus (PCR) Nasal B. parapertussis DNA (PCR) Nasal Coronavir 229E PCR Nasal Coronavir HKU1 PCR Nasal Coronavir NL63 PCR Nasal Coronavir OC43 PCR Nasal Enterovir/Rhinovir PCR Nasal Influenza B PCR Nasal Influenza A PCR Nasal Parainfluen 1 PCR Nasal Parainfluen 2 PCR Nasal Parainfluen 3 PCR Nasal Parainfluen 4 PCR Nasal RSV (PCR) Nasal B.pertussis DNA PCR Nasal C.pneumoniae (PCR) Nilesh Human Metapneumo PCR Nasal M.pneumoniae (PCR) Nasal SARS-CoV-2 (PCR) Urine Opiates Screen Ur Oxycodone Screen Urine Methadone Screen Ur Propoxyphene Screen Ur Barbiturates Screen Ur Tricyclics Screen Ur Phencyclidine Scrn Ur Amphetamine Screen U Methamphetamines Scrn U Benzodiazepines Scrn Urine Cocaine Screen U Cannabinoids Screen Ethyl Alcohol < 5.0 Serum Ketones MODERATE H 03/28/21 03/28/21 11:12 11:12 WBC RBC Hgb Hct MCV MCH MCHC RDW Plt Count MPV Neut # (Auto) Lymph # (Auto) [place] # (Auto) Eos # (Auto) Baso # (Auto) Absolute Nucleated RBC Nucleated RBC % VBG pH VBG pCO2 VBG pO2 VBG HCO3 VBG Total CO2 VBG O2 Saturation VBG Base Excess Sodium Potassium Chloride Carbon Dioxide Anion Gap BUN Creatinine Estimated GFR (MDRD) Glucose Calcium Total Bilirubin AST ALT Alkaline Phosphatase Total Protein Albumin Globulin Albumin/Globulin Ratio Lipase Urine Color YELLOW Urine Clarity CLEAR Urine pH 5.0 Ur Specific [place] 1.020 Urine Protein TRACE Urine Glucose (UA) >=1000 H Urine Ketones 40 H Urine Occult Blood SMALL H Urine Nitrite NEGATIVE Urine Bilirubin NEGATIVE Urine Urobilinogen 0.2 (NORMAL) Ur Leukocyte Esterase NEGATIVE Urine RBC 3 Urine WBC 0-3 Ur Squamous Epith Cells FEW Squamous Urine Bacteria Rare Ur Microscopic Review INDICATED Urine Culture Comments NOT INDICATED Nasal Adenovirus (PCR) NOT DETECTED Nasal B. parapertussis DNA (PCR) NOT DETECTED Nasal Coronavir 229E PCR NOT DETECTED Nasal Coronavir HKU1 PCR NOT DETECTED Nasal Coronavir NL63 PCR NOT DETECTED Nasal Coronavir OC43 PCR NOT DETECTED Nasal Enterovir/Rhinovir PCR NOT DETECTED Nasal Influenza B PCR NOT DETECTED Nasal Influenza A PCR NOT DETECTED Nasal Parainfluen 1 PCR NOT DETECTED Nasal Parainfluen 2 PCR NOT DETECTED Nasal Parainfluen 3 PCR NOT DETECTED Nasal Parainfluen 4 PCR NOT DETECTED Nasal RSV (PCR) NOT DETECTED Nasal B.pertussis DNA PCR NOT DETECTED Nasal C.pneumoniae (PCR) NOT DETECTED [place] Human Metapneumo PCR NOT DETECTED Nasal M.pneumoniae (PCR) NOT DETECTED Nasal SARS-CoV-2 (PCR) NOT DETECTED Urine Opiates Screen NEGATIVE Ur Oxycodone Screen NEGATIVE Urine Methadone Screen NEGATIVE Ur Propoxyphene Screen NEGATIVE Ur Barbiturates Screen NEGATIVE Ur Tricyclics Screen NEGATIVE Ur Phencyclidine Scrn NEGATIVE Ur Amphetamine Screen NEGATIVE U Methamphetamines Scrn NEGATIVE U Benzodiazepines Scrn NEGATIVE Urine Cocaine Screen NEGATIVE U Cannabinoids Screen POSITIVE H Ethyl Alcohol Serum Ketones PD MEDICAL DECISION MAKING - ED course Complexity details: reviewed old records, reviewed results, re-evaluated patient, considered differential, d/w patient (65-year-old male with DKA. History of gastric paresis), d/w information resource consultant ED course: 65-year-old diabetic male, history of gastroparesis found to be in DKA. Difficulty obtaining IV lines in the patient. Several iv's were restarted. Eventually a PICC line was placed by anesthesia. Patient was started on an insulin gtt. Due to the difficulty of obtaining IV access, subcutaneous insulin was given initially. We will admit the patient for DKA. Discussed the case with Dr. Manning, hospitalist who accepts. There was a delay in going to the ICU secondary to bed availability. This document was made in part using voice recognition software. While efforts are made to proofread this document, sound alike and grammatical errors may occur. Departure - Departure Disposition: 66 [facility] [place] DC/Xfer Clinical Impression: Cannabis use disorder, moderate, dependence DKA (diabetic ketoacidosis) Qualifiers: Diabetes mellitus type: due to underlying condition Diabetes mellitus complication detail: without coma Qualified Code(s): E08.10 - Diabetes mellitus due to underlying condition with ketoacidosis without coma Vomiting Qualifiers: Vomiting type: unspecified Nausea presence: with nausea Qualified Code(s): R11.2 - Nausea with vomiting, unspecified Condition: Stable
[2021-03-28 11:13] LABS: MUDS CUTOFF CONCENTRATIONS CUTOFF CONC BELOW:
[2021-03-28 11:17] LABS: BILIRUBIN,URINE NEGATIVE (NEGATIVE); GLUCOSE, URINE (UA) >=1000 mg/dL (NEGATIVE); KETONES,URINE (UA) 40 mg/dL (NEGATIVE); LEUKOCYTE ESTERASE, URINE NEGATIVE (NEGATIVE); NITRITE,URINE NEGATIVE (NEGATIVE); OCCULT BLOOD,URINE SMALL (NEGATIVE); PROTEIN,URINE TRACE mg/dL (NEGATIVE); UROBILINOGEN,URINE 0.2 (NORMAL) E.U./dL (NORMAL)
[2021-03-28 11:19] LABS: CLARITY,URINE CLEAR (CLEAR)
[2021-03-28] MEDS ORDERED: INSULIN REGULAR HUMAN 100 UNIT/1 ML 10 ML MDV SUBQ STA (11:30)
[2021-03-28 11:35] LABS: AMPHETAMINE SCREEN,URINE NEGATIVE (NEGATIVE); BARBITURATE SCREEN,UR NEGATIVE (NEGATIVE); BENZODIAZEPINES SCREEN, URINE NEGATIVE (NEGATIVE); COCAINE SCREEN URINE NEGATIVE (NEGATIVE); METHADONE SCREEN, URINE NEGATIVE (NEGATIVE); METHAMPHETAMINES SCREEN, URINE NEGATIVE (NEGATIVE); OPIATE SCREEN, URINE NEGATIVE (NEGATIVE); OXYCODONE SCREEN, URINE NEGATIVE (NEGATIVE); PROPOXYPHENE SCREEN, URINE NEGATIVE (NEGATIVE); THC CANNABINOID SCREEN, URINE POSITIVE (NEGATIVE); TRICYCLIC ANTIDEPRESSANT,URINE NEGATIVE (NEGATIVE)
[2021-03-28 11:38] LABS: BACTERIA,URINE Rare /HPF (None Seen); RBC,URINE 3 /HPF (0-5); SQUAMOUS EPITHELIAL CELL,UR FEW Squamous (<= Few); WBC,URINE 0-3 /HPF (0-3)
[2021-03-28 12:31] LABS: B. PARAPERTUSSIS- RESP PCR PAN NOT DETECTED; B. PERTUSSIS- RESP PCR PANEL NOT DETECTED; C. PNEUMONIAE- RESP PCR PANEL NOT DETECTED; CORONAVIRUS 229E-RESP PCR NOT DETECTED; CORONAVIRUS HKU1-RESP PCR NOT DETECTED; CORONAVIRUS NL63-RESP PCR NOT DETECTED; CORONAVIRUS OC43-RESP PCR NOT DETECTED; HUMAN METAPNEUMOVIRUS NOT DETECTED; INFLUENZA A- RESP PCR PANEL NOT DETECTED; INFLUENZA B - RESP PCR PANEL NOT DETECTED; M. PNEUMONIAE- RESP PCR PANEL NOT DETECTED; PARAINFLUENZA VIRUS 1 NOT DETECTED; PARAINFLUENZA VIRUS 2 NOT DETECTED; PARAINFLUENZA VIRUS 3 NOT DETECTED; PARAINFLUENZA VIRUS 4 NOT DETECTED; RHINOVIRUS/ENTEROVIRUS NOT DETECTED; RSV- RESP PCR PANEL NOT DETECTED; SARS-CoV-2 -RESP PCR PANEL NOT DETECTED
--- NOTE | 2021-03-28 13:26 | XRAY Report ---
PROCEDURE: Chest for Line Placement INDICATIONS: PICC placement TECHNIQUE: One view of the chest was acquired. COMPARISON: Chest x-ray 01/15/2021 FINDINGS: Surgical changes and devices: Right PICC line is present with distal tip projecting over the mid SVC. . Lungs and pleura: No pleural effusions or pneumothorax. Lungs are clear. Mediastinum: Mediastinal contours appear normal. Heart size is enlarged. Bones and chest wall: No suspicious bony lesions. Overlying soft tissues appear unremarkable. IMPRESSION: PICC line as above. Reviewed by: Lona Chan MD on 03/28/2021 1:25 PM PST Approved by: Lona Chan MD on 03/28/2021 1:25 PM PST Station ID: [id number]
--- NOTE | 2021-03-28 13:58 | ANESTHESIA PROCEDURE NOTE ---
Anesth Central Line Template - Central Line Central Line Preparation: Consent Obtained Central line location: Right Brachial Central line type: PICC Double Lumen Central line catheter tip site resides: Superior vena cava (SVC) Central line aftercare: Secured, Placement confirmed, No pneumothorax, No complications, Bundle checklist complete, Pt tolerated well
--- NOTE | 2021-03-28 14:00 | CONSULTATION NOTE ---
Consultation Report: Informed consent obtained. U/S guided RUE PICC line placed under sterile technique and sterile dressing applied. Double lumen, both ports aspirate and flush easily. Placement verified with port CXR and confirmed with Dr. Spence at the bedside. Pt tolerated well. NAC
--- NOTE | 2021-03-28 14:19 | HISTORY & PHYSICAL EXAMINATION ---
Chief Complaint - Chief Complaint Chief Complaint: N/V History of Present Illness - Admitted From Admitted From:: ED - History Obtained From History obtained from: ED provider, EMR and the patient - History of Present Illness HPI Comment/Other: This is a 65-year-old white male with a history of type 1 diabetes, diabetic gastroparesis, Hx of CAD, paroxysmal A. fib on Eliquis, has frequent admissions for DKA exacerbations, some possibly related to marijuana use that gives him cyclical nausea and vomiting. Patient states that 2 days ago he started to have nausea and vomiting and could not keep any food or liquids down. He says it was "set off by having cold liquids". He has had no fever or diarrhea. He denied SOB or chest pain. He has a "ingrown hair of his powell" which is caused right lower lip swelling. 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 His CODE STATUS is Full Code. History - Past Medical History Cardiovascular: reports: Hypertension, High cholesterol, [place], Atrial fibrillation Respiratory: reports: None Neuro: reports: Cerebral palsy, Peripheral neuropathy, Other Endocrine/Autoimmune: reports: Type 2 diabetes GI: reports: GERD, Other (Gastroparesis) : reports: Benign prostate hypertrophy HEENT: reports: Chronic vision loss, Other Psych: reports: Claustrophobia Musculoskeletal: reports: Osteoarthritis Derm: reports: None MRSA Hx?: No - Past Surgical History General: reports: Appendectomy Ortho: reports: Amputation, Other Cardiovascular: reports: Other - Family & Social History Family History: Father: Cancer, Sister: Diabetes, Type 1, Brother: Cancer, Diabetes, Type 1 Living arrangement: At home Living Situation: Alone Social History Notes: He smokes marijuana on a weekly basis but no tobacco produ cts. He drinks alcohol occasionally. No other recreational substance abuse. 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 - Substance History Use: Uses substance without health or social issues: Alcohol, Cannabis - POLST Patient has POLST: No POLST Status: Full Code Meds/Allgy - Home Medications Home Medications: Ambulatory Orders Medication Instructions Recorded Confirmed Tamsulosin [Flomax] 0.4 mg PO DAILY 06/09/19 03/28/21 Metoclopramide [Reglan] 10 mg PO TID PRN 12/07/19 03/28/21 Ondansetron Odt [Zofran Odt] 4 mg PO Q6H PRN 05/29/20 03/28/21 Apixaban [Eliquis] 5 mg PO BID 01/24/21 03/28/21 Omeprazole 40 mg PO DAILY 01/24/21 03/28/21 Insulin Aspart [Novolog Flexpen] 5 - 8 unit SQ TIDWM 02/24/21 03/28/21 Insulin Glargine [Lantus Solostar] 70 units SUBQ QPM 02/24/21 03/28/21 - Allergies Allergies/Adverse Reactions: Allergies Allergy/AdvReac Type Severity Reaction Status Date / Time No Known Drug Allergies Allergy Verified 03/28/21 13:49 Review of Systems - Constitutional Constitutional: reports: Poor appetite - Gastrointestinal Gastrointestinal: reports: Abdominal pain, Nausea, Vomiting - Integumentary Integumentary: reports: Other (Ingrown hair on powell of face) - All Other Systems All Other Systems: reports: Reviewed and negative Exam - Vital Signs Vital Signs: Vital Signs x48h Temp Pulse Resp BP Pulse Ox 03/28/21 13:32 121 H 24 153/98 H 98 03/28/21 11:39 119 H 24 97 03/28/21 10:25 122 H 23 180/70 H 100 03/28/21 10:23 36.5 C 125 H 29 H 100 03/28/21 09:18 36.2 C L 123 H 26 H 118/72 98 - Physical Exam General Appearance: positive: Moderate distress (From nausea and vomiting) Eyes Bilateral: positive: Normal inspection ENT: positive: Dry mucous membranes, Other (Right lower lateral lip is swollen, no bleeding, no pustule) Neck: positive: Nml inspection Respiratory: positive: No respiratory distress Cardiovascular: positive: Regular rate & rhythm Abdomen: positive: Non-tender, No distention Skin: positive: Warm, Dry Extremities: positive: Non-tender, No pedal edema, Other (Has amputated toes) Neurologic/Psychiatric: positive: Oriented x3, Motor nml Conclusion/Plan - Problem List (1) DKA (diabetic ketoacidosis) Conclusion/Plan: He is a marijuana smoker which has led to some of his cyclical nausea and vomiting and then led to dehydration and DKA. He has been told to stop marijuana completely but he continues to use it. He also has known diabetic gastroparesis that occasionally will get set off and give him days of abdominal pain and nausea and then that leads to DKA. We will start a DKA protocol, insulin drip in the ICU with close monitoring of labs Check A1c Patient chips because of his nausea and vomiting. Give iv antiemetics, iv pain meds if needed Qualifiers: Diabetes mellitus type: due to underlying condition Diabetes mellitus complication detail: without coma Qualified Code(s): E08.10 - Diabetes mellitus due to underlying condition with ketoacidosis without coma (2) Gastroparesis diabeticorum Conclusion/Plan: As per history. He takes Reglan but unknown how religiously. Will order bowel rest, only sips and chips. We will give IV antiemetics and IV pain meds as needed (3) KI (acute kidney injury) Conclusion/Plan: He has come in with prerenal azotemia previously, this is the highest BUN/creatinine ratio that he has had over this past year. This suggest that he is quite volume depleted. Avoid nephrotoxins. Continue with IV fluids especially since he is n.p.o. for bowel rest (4) Hx of coronary artery disease Conclusion/Plan: Will use IV forms of the most essential meds like beta-blockers. We will resume his other cardiac meds when he can tolerate a diet and swallow pills (5) Afib Conclusion/Plan: Will use IV forms of meds that are essential and will use therapeutic Lovenox dosing instead of his Eliquis while he cannot take pills (6) Cannabis misuse Conclusion/Plan: As per Hx and he has been told in the past that he should stop this. - Lab Results Fish Bones: 03/28/21 09:50 03/28/21 17:18 - Diagnostic Imaging Results Diagnostic Imaging Results: positive: Final report reviewed - Other Other Results/Comments: Attestation: The patient is expected to be discharged or transferred to another facility within 96 hours: Yes
[2021-03-28 14:33] LABS: VBG HCO3 16.6 mmol/L (23-28); VBG PCO2 28.2 mmHg (41-51); VBG PH 7.387 (7.31-7.41); VBG PO2 35.7 mmHg (25-47)
[2021-03-28 14:34] LABS: VBG BASE EXCESS -6.9 mmol/L (-2 - +2); VBG TOTAL CO2 17.4 mmol/L (24-29)
[2021-03-28 14:47] LABS: BUN - BLOOD UREA NITROGEN 50 mg/dL (6-20); CALCIUM 8.2 mg/dL (8.5-10.3); CARBON DIOXIDE - CO2 17 mmol/L (21-32); CHLORIDE 97 mmol/L (101-111); CREATININE 1.9 mg/dL (0.6-1.2); GFR - MDRD 36 (>89); MAGNESIUM 2.2 mg/dL (1.7-2.8); POTASSIUM 3.3 mmol/L (3.5-5.0); SODIUM 132 mmol/L (135-145)
[2021-03-28 14:49] LABS: KETONES, SERUM (ACETEST) SMALL (NEGATIVE)
[2021-03-28 14:54] LABS: GLUCOSE 763 mg/dL (70-100)
[2021-03-28 16:22] LABS: BUN - BLOOD UREA NITROGEN 56 mg/dL (6-20); CALCIUM 9.4 mg/dL (8.5-10.3); CARBON DIOXIDE - CO2 21 mmol/L (21-32); CHLORIDE 97 mmol/L (101-111); CREATININE 2.2 mg/dL (0.6-1.2); GFR - MDRD 30 (>89); MAGNESIUM 2.3 mg/dL (1.7-2.8); POTASSIUM 3.5 mmol/L (3.5-5.0); SODIUM 135 mmol/L (135-145)
[2021-03-28 16:23] LABS: GLUCOSE 588 mg/dL (70-100)
[2021-03-28 16:28] LABS: KETONES, SERUM (ACETEST) SMALL (NEGATIVE)
[2021-03-28] MEDS: SODIUM CHLORIDE 0.9% 1,000 ML IV SCH ×2 (17:03→20:51)
[2021-03-28 17:41] LABS: BUN - BLOOD UREA NITROGEN 57 mg/dL (6-20); CALCIUM 9.4 mg/dL (8.5-10.3); CARBON DIOXIDE - CO2 23 mmol/L (21-32); CHLORIDE 98 mmol/L (101-111); GFR - MDRD 34 (>89); GLUCOSE 476 mg/dL (70-100); MAGNESIUM 2.3 mg/dL (1.7-2.8); POTASSIUM 3.3 mmol/L (3.5-5.0); SODIUM 135 mmol/L (135-145)
--- NOTE | 2021-03-28 17:41 | XRAY Report ---
PROCEDURE: Chest for Line Placement INDICATIONS: verify line placement TECHNIQUE: One view of the chest was acquired. COMPARISON: Earlier in the day on 03/28/2021 and 01/15/2021 FINDINGS: Surgical changes and devices: A right-sided PICC line is again seen, which has been withdrawn slightl y, with the tip now seen overlying the mid superior vena cava, previously 4 cm above the cavoatrial j unction. Lungs and pleura: On the semiupright images, no large pneumothorax or large pleural effusions can be seen. No focal infiltrates are seen. Mediastinum: Mediastinal contours appear normal. Heart size is normal. Calcification is seen of th e aortic arch. Bones and chest wall: No suspicious bony lesions. Age-appropriate degenerative changes are seen. O verlying soft tissues appear unremarkable. IMPRESSION: The tip of the right-sided central line is now seen overlying the mid aspect of the superior vena cav a. Reviewed by: Dennis Mittal MD on 03/28/2021 4:40 PM AKST Approved by: Dennis Mittal MD on 03/28/2021 4:40 PM AKST Station ID: [id number]
[2021-03-28 17:47] LABS: KETONES, SERUM (ACETEST) NEGATIVE (NEGATIVE)
[2021-03-28] MEDS ORDERED: INSULIN REGULAR HUMAN 100 UNIT in SODIUM CHLORIDE 0.9% 100ML 99 ML IV SCH (18:00)
[2021-03-28] MEDS ORDERED: POTASSIUM CHLOR 20 MEQ/100 ML 20 MEQ/100 ML BAG IV ONE (18:27)
[2021-03-28] MEDS: ONDANSETRON 4 MG/2 ML VIAL IVP PRN (18:42)
[2021-03-28] MEDS ORDERED: POTASSIUM CHLOR IV SCH (20:00)
[2021-03-28] MEDS: POTASSIUM CHLOR 10 MEQ/100 ML 10 MEQ/100 ML BAG IV SCH ×2 (20:07→21:12)
[2021-03-28] MEDS: SODIUM CHLORIDE FLUSH 0.9% 10 ML SYRINGE IVP SCH (20:08)
[2021-03-28] MEDS: SODIUM CHLORIDE FLUSH 0.9% 10 ML SYRINGE IVP PRN (20:57)
[2021-03-28] MEDS: FAMOTIDINE 20 MG/2 ML VIAL IVP SCH (20:57)
[2021-03-28] MEDS ORDERED: ENOXAPARIN 100 MG/ML SYRINGE SUBQ SCH (21:00)
[2021-03-28 21:52] LABS: CALCIUM 9.7 mg/dL (8.5-10.3); CREATININE 1.9 mg/dL (0.6-1.2); MAGNESIUM 2.3 mg/dL (1.7-2.8); PHOSPHORUS 1.5 mg/dL (2.5-4.6); POTASSIUM 3.6 mmol/L (3.5-5.0)
[2021-03-28] MEDS ORDERED: ENOXAPARIN 80 MG/0.8 ML SYRINGE SUBQ SCH (22:00)
[2021-03-28 22:35] LABS: CALCIUM 9.7 mg/dL (8.5-10.3); CREATININE 1.7 mg/dL (0.6-1.2); MAGNESIUM 2.4 mg/dL (1.7-2.8); PHOSPHORUS 1.7 mg/dL (2.5-4.6); POTASSIUM 3.7 mmol/L (3.5-5.0)
[2021-03-28] MEDS ORDERED: D5.45NS W/20 MEQ KCL 1,000 ML IV SCH ×2 (23:00→23:12)
[2021-03-28] MEDS ORDERED: POTASSIUM PHOSPHATE 21 MMOL in SODIUM CHLORIDE 0.9% 250 ML IV ONE (23:15)
[2021-03-29] MEDS: LABETALOL 20 MG/4 ML SYRINGE IVP PRN ×4 (00:17→20:14)
[2021-03-29] MEDS: SODIUM CHLORIDE FLUSH 0.9% 10 ML SYRINGE IVP PRN ×9 (00:18→20:14)
[2021-03-29] MEDS: SODIUM CHLORIDE FLUSH 0.9% 10 ML SYRINGE IVP SCH ×5 (00:19→23:54)
[2021-03-29 00:38] LABS: MAGNESIUM 2.3 mg/dL (1.7-2.8); PHOSPHORUS 2.4 mg/dL (2.5-4.6)
[2021-03-29 00:43] LABS: CALCIUM 9.3 mg/dL (8.5-10.3); CREATININE 1.5 mg/dL (0.6-1.2); POTASSIUM 3.8 mmol/L (3.5-5.0)
[2021-03-29] MEDS: PROCHLORPERAZINE 10 MG/2 ML VIAL IVP PRN ×3 (01:01→23:53)
[2021-03-29] MEDS: D5.45NS W/20 MEQ KCL 1,000 ML IV SCH ×4 (02:10→15:29)
[2021-03-29] MEDS: ONDANSETRON 4 MG/2 ML VIAL IVP PRN ×3 (04:21→20:22)
[2021-03-29 04:35] LABS: BASOPHILS % (AUTO) 0.3 %; HCT - HEMATOCRIT 42.6 % (42.0-52.0); HGB - HEMOGLOBIN 14.6 g/dL (14.0-18.0); LYMPHOCYTES % (AUTO) 4.6 %; MEAN CORPUSCULAR HEMOGLOBIN 30.5 pg (27.0-31.0); MEAN CORPUSCULAR HGB CONC 34.3 g/dL (32.0-36.0); MEAN CORPUSCULAR VOLUME 89.1 fL (80.0-94.0); MEAN PLATELET VOLUME 10.2 fL (7.4-11.4); MONOCYTES % (AUTO) 7.8 %; NEUTROPHILS % (AUTO) 86.8 %; PLT - PLATELET COUNT 252 10^3/uL (130-450); RED BLOOD COUNT 4.78 10^6/uL (4.70-6.10); RED CELL DISTRIBUTION WIDTH 13.6 % (12.0-15.0); WHITE BLOOD COUNT 20.3 x10^3/uL (4.8-10.8)
[2021-03-29 04:36] LABS: KETONES, SERUM (ACETEST) NEGATIVE (NEGATIVE)
[2021-03-29 04:37] LABS: CALCIUM, IONIZED 1.2 mmol/L (1.15-1.33); VBG PH 7.377 (7.31-7.41)
[2021-03-29 04:43] LABS: BUN - BLOOD UREA NITROGEN 57 mg/dL (6-20); CARBON DIOXIDE - CO2 25 mmol/L (21-32); CHLORIDE 104 mmol/L (101-111); CREATININE 1.6 mg/dL (0.6-1.2); GFR - MDRD 44 (>89); GLUCOSE 206 mg/dL (70-100); PHOSPHORUS 4.1 mg/dL (2.5-4.6); POTASSIUM 4.2 mmol/L (3.5-5.0); SODIUM 139 mmol/L (135-145); TRIGLYCERIDES 136 mg/dL
[2021-03-29 04:45] LABS: ABNORMAL LYMPHS % (MANUAL) 0 %
[2021-03-29 05:00] LABS: BAND NEUTROPHILS % (MANUAL) 2 %; LYMPHOCYTES # (MANUAL) 0.8 10^3/uL (1.5-3.5); LYMPHOCYTES % (MANUAL) 4 %; MONOCYTES # (MANUAL) 1.8 10^3/uL (0.0-1.0); NEUTROPHILS # (MANUAL) 17.7 10^3/uL (1.5-6.6); RBC MORPHOLOGY (MULTIPLE) NORMAL APPEARANCE (NORMAL)
[2021-03-29 05:01] LABS: DIFFERENTIAL COMMENT MANUAL DIFFERENTIAL; PLATELET ESTIMATE, MANUAL NORMAL (130-450,000) (NORMAL); PLATELET MORPHOLOGY NORMAL APPEARANCE (NORMAL); WBC MORPHOLOGY (MULTIPLE) NORMAL APPEARANCE (NORMAL)
[2021-03-29] MEDS: FAMOTIDINE 20 MG/2 ML VIAL IVP SCH ×2 (08:25→20:12)
[2021-03-29] MEDS: ENOXAPARIN 100 MG/ML SYRINGE SUBQ SCH ×2 (08:40→20:13)
[2021-03-29] MEDS ORDERED: ENOXAPARIN 100 MG/ML SYRINGE SUBQ SCH (09:00)
[2021-03-29 09:32] LABS: ESTIMATED AVERAGE GLUCOSE 217 mg/dL (70-100); HEMOGLOBIN A1c% 9.2 % (4.27-6.07)
[2021-03-29] MEDS ORDERED: INSULIN REGULAR HUMAN 300 UNIT/3 ML VIAL SUBQ SCH (12:00)
[2021-03-29] MEDS: INSULIN REGULAR HUMAN 300 UNIT/3 ML VIAL SUBQ SCH ×3 (18:23→23:54)
--- NOTE | 2021-03-29 18:41 | PROVIDER PROGRESS NOTE ---
Assessment/Plan - Problem List (1) DKA (diabetic ketoacidosis) Qualifiers: Diabetes mellitus type: due to underlying condition Diabetes mellitus complication detail: without coma Qualified Code(s): E08.10 - Diabetes mellitus due to underlying condition with ketoacidosis without coma Assessment/Plan: His serum ketones have improved. Will be discontinuing his IV insulin today and changing to Lantus plus sliding scale. Because he cannot start a diet for 3 to 4 days (because of his known gastroparesis that causes long lasting nausea vomiting during DKA), we will not use his usual Lantus dose yet (2) Gastroparesis diabeticorum Assessment/Plan: He has had multiple admissions here and his nausea, vomiting, gastroparetic symptoms last 3 to 4 to 5 days. Continue with IV antiemetics and IV pain meds as needed. Will eventually use Reglan and advance his diet very slowly (3) KI (acute kidney injury) Assessment/Plan: Related to his dehydration. Avoid nephrotoxins. Continue with IV fluids. Follow BMP daily (4) Hx of coronary artery disease Assessment/Plan: As per Hx Will use iv forms of essential meds (5) Afib Qualifiers: Atrial fibrillation type: paroxysmal Qualified Code(s): I48.0 - Paroxysmal atrial fibrillation Assessment/Plan: Heart rate is essentially controlled, has improved with IV fluids. Will resume his essential cardiac meds. He is getting therapeutic Lovenox while he cannot swallow his DOAC (6) Cannabis misuse Assessment/Plan: He has been counseled on stopping use of this to decrease other causes for nausea and vomiting - Current Meds Current Meds: Current Medications Generic Name Dose Route Start Last Admin Trade Name Michael PRN Reason Stop Dose Admin Enoxaparin Sodium 100 mg 03/29/21 09:00 03/29/21 08:40 Enoxaparin 100 Mg/Ml Syringe SUBQ 100 mg BID NATHANIEL Administration Famotidine 20 mg 03/28/21 21:00 03/29/21 08:25 Famotidine 20 Mg/2 Ml Vial IVP 20 mg BID NATHANIEL Administration Potassium Chloride/Dextrose/Sod Cl 1,000 mls @ 100 mls/hr 03/29/21 06:57 03/29/21 15:29 D5.45ns W/20 Meq Kcl IV 100 mls/hr .Q10H NATHANIEL Administration Insulin Human Regular 2 - 10 unit 03/29/21 18:08 03/29/21 18:23 Insulin Regular Human 300 Unit/3 Ml Vial SUBQ 10 unit Q6HR NATHANIEL Administration Protocol Labetalol HCl 10 mg 03/28/21 23:49 03/29/21 14:20 Labetalol 20 Mg/4 Ml Syringe IVP 10 mg Q6H PRN Administration PER PHYSICIAN ORDER Ondansetron HCl 4 mg 03/28/21 14:07 03/29/21 14:09 Ondansetron 4 Mg/2 Ml Vial IVP 4 mg Q6HR PRN Administration Nausea / Vomiting Prochlorperazine Edisylate 10 mg 03/28/21 14:07 03/29/21 08:40 Prochlorperazine 10 Mg/2 Ml Vial IVP 10 mg Q6HR PRN Administration Nausea / Vomiting Sodium Chloride 10 ml 03/28/21 17:00 03/29/21 08:26 Sodium Chloride Flush 0.9% 10 Ml Syringe IVP 10 ml 0100,0900,1700 NATHANIEL Administration Sodium Chloride 10 ml 03/28/21 14:07 03/29/21 06:13 Sodium Chloride Flush 0.9% 10 Ml Syringe IVP 20 ml PRN PRN Administration NEEDED PER PROVIDER ORDERS - Lab Result Fish Bone Diagrams: 03/29/21 04:05 03/30/21 05:45 - Additional Planning My Orders: My Active Orders 03/28/21 21:00 Famotidine [Pepcid] 20 mg IVP BID 03/29/21 09:00 Enoxaparin [Lovenox] 100 mg SUBQ BID 03/29/21 09:06 Miscellaenous Nursing Order [RC] ONCE 03/29/21 18:08 Insulin Regular Human [Humulin R] 2 - 10 unit SUBQ Q6HR 03/29/21 21:00 Insulin Glargine [Lantus Solostar] 30 unit SUBQ QPM 03/30/21 05:00 BMP - BASIC METABOLIC PANEL [CHEM] DAILYLAB CALCIUM, IONIZED ([facility]) [BG] DAILYLAB MAGNESIUM [CHEM] DAILYLAB 03/31/21 05:00 MAGNESIUM [CHEM] DAILYLAB Subjective - Subjective Patient Reports: Other (sleeping after pain meds given) Nursing Reports: Nausea, Pain, Vomitting, Other (Declines wanting to try water or clear liquids because he knows his abd sx last 4-5 days) Objective Vital Signs: Vital Signs - 24 hr 03/28/21 03/28/21 03/28/21 19:00 20:00 21:00 Temperature 37.5 C Heart Rate [ 104 H 116 H 111 H Monitoring electrodes] Respiratory 19 26 H 16 Rate Blood Pressure 122/78 133/86 H 114/81 H [Left Brachial artery] O2 Saturation 98 97 97 03/28/21 03/28/21 03/29/21 22:00 23:00 01:00 Temperature Heart Rate [ 104 H 109 H 96 Monitoring electrodes] Respiratory 22 24 19 Rate Blood Pressure 151/94 H 164/106 H 189/117 H [Left Brachial artery] O2 Saturation 95 99 99 03/29/21 03/29/21 03/29/21 02:00 03:00 04:00 Temperature Heart Rate [ 87 91 96 Monitoring electrodes] Respiratory 14 13 17 Rate Blood Pressure 143/89 H 161/92 H 125/75 [Left Brachial artery] O2 Saturation 98 100 99 03/29/21 03/29/21 03/29/21 05:00 06:00 07:00 Temperature Heart Rate [ 103 H 87 95 Monitoring electrodes] Respiratory 16 16 22 Rate Blood Pressure 208/121 H 168/90 H 116/61 [Left Brachial artery] O2 Saturation 100 99 98 03/29/21 03/29/21 03/29/21 08:00 09:00 10:00 Temperature 37.2 C Heart Rate [ 97 87 88 Monitoring electrodes] Respiratory 17 13 13 Rate Blood Pressure 128/90 H 127/77 133/92 H [Left Brachial artery] O2 Saturation 100 95 96 03/29/21 03/29/21 03/29/21 11:00 12:00 13:00 Temperature Heart Rate [ 99 98 113 H Monitoring electrodes] Respiratory 14 16 20 Rate Blood Pressure 187/106 H 145/74 H 145/74 H [Left Brachial artery] O2 Saturation 92 96 100 03/29/21 03/29/21 03/29/21 14:00 14:20 14:25 Temperature Heart Rate [ 110 H 102 H 94 Monitoring electrodes] Respiratory 19 21 18 Rate Blood Pressure 225/125 H 214/129 H 191/120 H [Left Brachial artery] O2 Saturation 100 100 99 03/29/21 03/29/21 03/29/21 14:30 14:35 14:40 Temperature Heart Rate [ 95 93 90 Monitoring electrodes] Respiratory 22 23 18 Rate Blood Pressure 189/109 H 201/121 H 198/107 H [Left Brachial artery] O2 Saturation 97 100 98 03/29/21 03/29/21 03/29/21 14:45 15:00 15:15 Temperature Heart Rate [ 92 96 96 Monitoring electrodes] Respiratory 20 20 Rate Blood Pressure 196/109 H 198/110 H 215/124 H [Left Brachial artery] O2 Saturation 98 100 03/29/21 03/29/21 03/29/21 15:52 16:00 17:00 Temperature 36.8 C 36.8 C Heart Rate [ 99 97 Monitoring electrodes] Respiratory 20 19 Rate Blood Pressure 180/101 H 131/78 H [Left Brachial artery] O2 Saturation 96 95 03/29/21 18:00 Temperature Heart Rate [ 103 H Monitoring electrodes] Respiratory 16 Rate Blood Pressure 207/112 H [Left Brachial artery] O2 Saturation 96 Oxygen O2 Source Room air I&O (Last 24 Hrs): Intake and Output Totals x24h 03/27/21 03/28/21 03/29/21 23:59 23:59 23:59 Intake Total 245.495 0697.749 Output Total 0 1650 Balance 834.695 3554.749 General: Other (Asleep) HEENT: Other (R lower lip swollen, dry oral mucosa) Neck: Supple Neuro: Non Focal Cardiovascular: Regular rate Respiratory: No respiratory distress Abdomen: Soft Extremities: No edema, Other (Several amputeated toes) - Results Results: Laboratory Results WBC 20.3 x10^3/uL (4.8-10.8) H 03/29/21 04:05 RBC 4.78 10^6/uL (4.70-6.10) 03/29/21 04:05 Hgb 14.6 g/dL (14.0-18.0) 03/29/21 04:05 Hct 42.6 % (42.0-52.0) 03/29/21 04:05 MCV 89.1 fL (80.0-94.0) 03/29/21 04:05 MCH 30.5 pg (27.0-31.0) 03/29/21 04:05 MCHC 34.3 g/dL (32.0-36.0) 03/29/21 04:05 RDW 13.6 % (12.0-15.0) 03/29/21 04:05 Plt Count 252 10^3/uL (130-450) 03/29/21 04:05 MPV 10.2 fL (7.4-11.4) 03/29/21 04:05 Neut # (Auto) Not Reportable 03/29/21 04:05 Lymph # (Auto) Not Reportable 03/29/21 04:05 [place] # (Auto) Not Reportable 03/29/21 04:05 Eos # (Auto) Not Reportable 03/29/21 04:05 Baso # (Auto) Not Reportable 03/29/21 04:05 Absolute Nucleated RBC Not Reportable 03/29/21 04:05 Total Counted 100 03/29/21 04:05 Band Neuts % (Manual) 2 % (0-10) 03/29/21 04:05 Abnorm Lymph % (Manual) 0 % 03/29/21 04:05 Nucleated RBC % Not Reportable 03/29/21 04:05 Neutrophils # (Manual) 17.7 10^3/uL (1.5-6.6) H 03/29/21 04:05 Lymphocytes # (Manual) 0.8 10^3/uL (1.5-3.5) L 03/29/21 04:05 Monocytes # (Manual) 1.8 10^3/uL (0.0-1.0) H 03/29/21 04:05 Eosinophils # (Manual) 0.0 10^3/uL (0-0.7) 03/29/21 04:05 Basophils # (Manual) 0.0 10^3/uL (0-0.1) 03/29/21 04:05 Differential Comment MANUAL DIFFERENTIAL 03/29/21 04:05 WBC Morphology NORMAL APPEARANCE (NORMAL) 03/29/21 04:05 Platelet Estimate NORMAL (130-450,000) (NORMAL) 03/29/21 04:05 Platelet Morphology NORMAL APPEARANCE (NORMAL) 03/29/21 04:05 RBC Morph Micro Appear NORMAL APPEARANCE (NORMAL) 03/29/21 04:05 VBG pH 7.377 (7.31-7.41) 03/29/21 04:05 VBG pCO2 28.2 mmHg (41-51) L 03/28/21 14:28 VBG pO2 35.7 mmHg (25-47) 03/28/21 14:28 VBG HCO3 16.6 mmol/L (23-28) L 03/28/21 14:28 VBG Total CO2 17.4 mmol/L (24-29) L 03/28/21 14:28 VBG O2 Saturation 70.0 % (60-80) 03/28/21 14:28 VBG Base Excess -6.9 mmol/L (-2 - +2) L 03/28/21 14:28 Ionized Calcium 1.20 mmol/L (1.15-1.33) 03/29/21 04:05 Sodium 139 mmol/L (135-145) 03/29/21 04:05 Potassium 4.2 mmol/L (3.5-5.0) 03/29/21 04:05 Chloride 104 mmol/L (101-111) 03/29/21 04:05 Carbon Dioxide 25 mmol/L (21-32) 03/29/21 04:05 Anion Gap 10.0 (6-13) 03/29/21 04:05 BUN 57 mg/dL (6-20) H 03/29/21 04:05 Creatinine 1.6 mg/dL (0.6-1.2) H 03/29/21 04:05 Estimated GFR (MDRD) 44 (>89) L 03/29/21 04:05 Glucose 206 mg/dL (70-100) H 03/29/21 04:05 Estimat Average Glucose 217 mg/dL (70-100) H 03/29/21 04:05 Hemoglobin A1c % 9.2 % (4.27-6.07) H 03/29/21 04:05 Calcium 9.0 mg/dL (8.5-10.3) 03/29/21 04:05 Phosphorus 2.9 mg/dL (2.5-4.6) 03/29/21 09:45 Magnesium 2.3 mg/dL (1.7-2.8) 03/29/21 00:00 Total Bilirubin 2.3 mg/dL (0.2-1.0) H 03/28/21 09:50 AST 30 IU/L (10-42) 03/28/21 09:50 ALT 20 IU/L (10-60) 03/28/21 09:50 Alkaline Phosphatase 84 IU/L (42-121) 03/28/21 09:50 Total Protein 7.9 g/dL (6.7-8.2) 03/28/21 09:50 Albumin 4.6 g/dL (3.2-5.5) 03/28/21 09:50 Globulin 3.3 g/dL (2.1-4.2) 03/28/21 09:50 Albumin/Globulin Ratio 1.4 (1.0-2.2) 03/28/21 09:50 Triglycerides 136 mg/dL (-149) 03/29/21 04:05 Lipase 85 U/L (22-51) H 03/28/21 09:50 Urine Color YELLOW 03/28/21 11:12 Urine Clarity CLEAR (CLEAR) 03/28/21 11:12 Urine pH 5.0 PH (5.0-7.5) 03/28/21 11:12 Ur Specific [place] 1.020 (1.002-1.030) 03/28/21 11:12 Urine Protein TRACE mg/dL (NEGATIVE) 03/28/21 11:12 Urine Glucose (UA) >=1000 mg/dL (NEGATIVE) H 03/28/21 11:12 Urine Ketones 40 mg/dL (NEGATIVE) H 03/28/21 11:12 Urine Occult Blood SMALL (NEGATIVE) H 03/28/21 11:12 Urine Nitrite NEGATIVE (NEGATIVE) 03/28/21 11:12 Urine Bilirubin NEGATIVE (NEGATIVE) 03/28/21 11:12 Urine Urobilinogen 0.2 (NORMAL) E.U./dL (NORMAL) 03/28/21 11:12 Ur Leukocyte Esterase NEGATIVE (NEGATIVE) 03/28/21 11:12 Urine RBC 3 /HPF (0-5) 03/28/21 11:12 Urine WBC 0-3 /HPF (0-3) 03/28/21 11:12 Ur Squamous Epith Cells FEW Squamous (<= Few) 03/28/21 11:12 Urine Bacteria Rare /HPF (None Seen) 03/28/21 11:12 Ur Microscopic Review INDICATED 03/28/21 11:12 Urine Culture Comments NOT INDICATED 03/28/21 11:12 Nasal Adenovirus (PCR) NOT DETECTED 03/28/21 11:12 Nasal B. parapertussis DNA (PCR) NOT DETECTED 03/28/21 11:12 Nasal Coronavir 229E PCR NOT DETECTED 03/28/21 11:12 Nasal Coronavir HKU1 PCR NOT DETECTED 03/28/21 11:12 Nasal Coronavir NL63 PCR NOT DETECTED 03/28/21 11:12 Nasal Coronavir OC43 PCR NOT DETECTED 03/28/21 11:12 Nasal Enterovir/Rhinovir PCR NOT DETECTED 03/28/21 11:12 Nasal Influenza B PCR NOT DETECTED 03/28/21 11:12 Nasal Influenza A PCR NOT DETECTED 03/28/21 11:12 Nasal Parainfluen 1 PCR NOT DETECTED 03/28/21 11:12 Nasal Parainfluen 2 PCR NOT DETECTED 03/28/21 11:12 Nasal Parainfluen 3 PCR NOT DETECTED 03/28/21 11:12 Nasal Parainfluen 4 PCR NOT DETECTED 03/28/21 11:12 Nasal RSV (PCR) NOT DETECTED 03/28/21 11:12 Nasal Screen MRSA (PCR) NEGATIVE (NEGATIVE) 03/28/21 16:45 Nasal B.pertussis DNA PCR NOT DETECTED 03/28/21 11:12 Nasal C.pneumoniae (PCR) NOT DETECTED 03/28/21 11:12 Nilesh Human Metapneumo PCR NOT DETECTED 03/28/21 11:12 Nasal M.pneumoniae (PCR) NOT DETECTED 03/28/21 11:12 Nasal SARS-CoV-2 (PCR) NOT DETECTED 03/28/21 11:12 Urine Opiates Screen NEGATIVE (NEGATIVE) 03/28/21 11:12 Ur Oxycodone Screen NEGATIVE (NEGATIVE) 03/28/21 11:12 Urine Methadone Screen NEGATIVE (NEGATIVE) 03/28/21 11:12 Ur Propoxyphene Screen NEGATIVE (NEGATIVE) 03/28/21 11:12 Ur Barbiturates Screen NEGATIVE (NEGATIVE) 03/28/21 11:12 Ur Tricyclics Screen NEGATIVE (NEGATIVE) 03/28/21 11:12 Ur Phencyclidine Scrn NEGATIVE (NEGATIVE) 03/28/21 11:12 Ur Amphetamine Screen NEGATIVE (NEGATIVE) 03/28/21 11:12 U Methamphetamines Scrn NEGATIVE (NEGATIVE) 03/28/21 11:12 U Benzodiazepines Scrn NEGATIVE (NEGATIVE) 03/28/21 11:12 Urine Cocaine Screen NEGATIVE (NEGATIVE) 03/28/21 11:12 U Cannabinoids Screen POSITIVE (NEGATIVE) H 03/28/21 11:12 Ethyl Alcohol < 5.0 mg/dL 03/28/21 09:50 Serum Ketones NEGATIVE (NEGATIVE) 03/29/21 04:05 - Procedures Procedures: Procedures DETACHMENT AT LEFT FOOT, PARTIAL 5TH RAY, OPEN APPROACH (12/20/19) EXCISION OF LEFT METATARSAL, OPEN APPROACH (12/06/19) INSERTION OF INFUSION DEV INTO SUP VENA CAVA, PERC APPROACH (05/28/20) INSERTION OF INFUSION DEVICE INTO R ATRIUM, PERC APPROACH (06/09/19) ULTRASONOGRAPHY OF SUPERIOR VENA CAVA, GUIDANCE (06/09/19)
[2021-03-29] MEDS: INSULIN GLARGINE 300 UNIT/3 ML PEN SUBQ SCH (20:38)
[2021-03-29 21:25] LABS: BILIRUBIN,URINE NEGATIVE (NEGATIVE); GLUCOSE, URINE (UA) >=1000 mg/dL (NEGATIVE); KETONES,URINE (UA) 15 mg/dL (NEGATIVE); LEUKOCYTE ESTERASE, URINE NEGATIVE (NEGATIVE); NITRITE,URINE NEGATIVE (NEGATIVE); OCCULT BLOOD,URINE SMALL (NEGATIVE); PH,URINE 5.5 PH (5.0-7.5); PROTEIN,URINE NEGATIVE (NEGATIVE); UROBILINOGEN,URINE 0.2 (NORMAL) E.U./dL (NORMAL)
[2021-03-29 21:26] LABS: CLARITY,URINE HAZY (CLEAR)
[2021-03-29 21:43] LABS: BACTERIA,URINE None Seen /HPF (None Seen); RBC,URINE 0-5 /HPF (0-5); SQUAMOUS EPITHELIAL CELL,UR NONE SEEN (<= Few); WBC,URINE 0-3 /HPF (0-3)
[2021-03-30] MEDS: D5.45NS W/20 MEQ KCL 1,000 ML IV SCH ×4 (01:42→23:20)
[2021-03-30] MEDS: LABETALOL 20 MG/4 ML SYRINGE IVP PRN ×2 (02:14→10:22)
[2021-03-30] MEDS: SODIUM CHLORIDE FLUSH 0.9% 10 ML SYRINGE IVP PRN ×2 (02:15→05:12)
[2021-03-30] MEDS: INSULIN REGULAR HUMAN 300 UNIT/3 ML VIAL SUBQ SCH ×3 (06:15→17:57)
[2021-03-30 06:25] LABS: CALCIUM 9.1 mg/dL (8.5-10.3); CREATININE 1.1 mg/dL (0.6-1.2); MAGNESIUM 2.4 mg/dL (1.7-2.8)
[2021-03-30 06:47] LABS: CALCIUM, IONIZED 1.18 mmol/L (1.15-1.33); VBG PH 7.367 (7.31-7.41)
[2021-03-30] MEDS ORDERED: hydrALAZINE INJ 20 MG/ML VIAL IVP ONE (07:48)
[2021-03-30] MEDS: SODIUM CHLORIDE FLUSH 0.9% 10 ML SYRINGE IVP SCH ×3 (09:02→21:49)
[2021-03-30] MEDS: FAMOTIDINE 20 MG/2 ML VIAL IVP SCH ×2 (09:03→20:44)
[2021-03-30] MEDS: ENOXAPARIN 100 MG/ML SYRINGE SUBQ SCH ×2 (09:05→20:42)
[2021-03-30] MEDS: ONDANSETRON 4 MG/2 ML VIAL IVP PRN ×3 (09:12→21:48)
[2021-03-30] MEDS: TAMSULOSIN 0.4 MG CAPSULE PO SCH (10:00)
[2021-03-30] MEDS: METOCLOPRAMIDE 10 MG TABLET PO PRN ×2 (10:22→21:50)
[2021-03-30] MEDS: PROCHLORPERAZINE 10 MG/2 ML VIAL IVP PRN ×2 (12:20→21:00)
--- NOTE | 2021-03-30 16:26 | PROVIDER PROGRESS NOTE ---
Assessment/Plan - Problem List (1) DKA (diabetic ketoacidosis) Qualifiers: Diabetes mellitus type: due to underlying condition Diabetes mellitus complication detail: without coma Qualified Code(s): E08.10 - Diabetes mellitus due to underlying condition with ketoacidosis without coma Assessment/Plan: Resolved Will move out of ICU today (2) Gastroparesis diabeticorum Assessment/Plan: He knows the usual course that he requires which is about 5 days with bowel rest to decrease his nausea, vomiting and abdominal pain. We will continue with as needed antiemetics and pain meds and try to resume his Reglan (3) KI (acute kidney injury) Assessment/Plan: Improving since on IV fluids. Avoid nephrotoxins. follow BMP daily (4) Hx of coronary artery disease Assessment/Plan: Will resume meds when taking po, essential meds via iv (5) Afib Qualifiers: Atrial fibrillation type: paroxysmal Qualified Code(s): I48.0 - Paroxysmal atrial fibrillation Assessment/Plan: Rate is controlled with current medical management. He currently cannot take p.o. meds therefore is not on his DOAC, he is on therapeutic Lovenox twice daily, for his stroke prophylaxis (6) Cannabis misuse Assessment/Plan: As per Hx - Current Meds Current Meds: Current Medications Generic Name Dose Route Start Last Admin Trade Name Freq PRN Reason Stop Dose Admin Enoxaparin Sodium 100 mg 03/29/21 09:00 03/30/21 09:05 Enoxaparin 100 Mg/Ml Syringe SUBQ 100 mg BID NATHANIEL Administration Famotidine 20 mg 03/28/21 21:00 03/30/21 09:03 Famotidine 20 Mg/2 Ml Vial IVP 20 mg BID NATHANIEL Administration Potassium Chloride/Dextrose/Sod Cl 1,000 mls @ 100 mls/hr 03/29/21 06:57 03/30/21 11:43 D5.45ns W/20 Meq Kcl IV 100 mls/hr .Q10H NATHANIEL Administration Insulin Glargine 30 unit 03/29/21 21:00 03/29/21 20:38 Insulin Glargine 300 Unit/3 Ml Pen SUBQ 30 unit QPM NATHANIEL Administration Insulin Human Regular 2 - 10 unit 03/29/21 18:08 03/30/21 11:53 Insulin Regular Human 300 Unit/3 Ml Vial SUBQ 4 unit Q6HR NATHANIEL Administration Protocol Labetalol HCl 10 mg 03/28/21 23:49 03/30/21 10:22 Labetalol 20 Mg/4 Ml Syringe IVP 10 mg Q6H PRN Administration PER PHYSICIAN ORDER Metoclopramide HCl 10 mg 03/30/21 07:47 03/30/21 10:22 Metoclopramide 10 Mg Tablet PO 10 mg TID PRN Administration Nausea / Vomiting Ondansetron HCl 4 mg 03/28/21 14:07 03/30/21 09:12 Ondansetron 4 Mg/2 Ml Vial IVP 4 mg Q6HR PRN Administration Nausea / Vomiting Prochlorperazine Edisylate 10 mg 03/28/21 14:07 03/30/21 12:20 Prochlorperazine 10 Mg/2 Ml Vial IVP 10 mg Q6HR PRN Administration Nausea / Vomiting Sodium Chloride 10 ml 03/28/21 17:00 03/30/21 09:02 Sodium Chloride Flush 0.9% 10 Ml Syringe IVP 10 ml 0100,0900,1700 NATHANIEL Administration Sodium Chloride 10 ml 03/28/21 14:07 03/30/21 05:12 Sodium Chloride Flush 0.9% 10 Ml Syringe IVP 20 ml PRN PRN Administration NEEDED PER PROVIDER ORDERS Tamsulosin HCl 0.4 mg 03/30/21 09:00 03/30/21 10:00 Tamsulosin 0.4 Mg Capsule PO 0.4 mg DAILY NATHANIEL Administration - Lab Result Fish Bone Diagrams: 03/29/21 04:05 03/30/21 05:45 - Additional Planning My Orders: My Active Orders 03/29/21 18:08 Insulin Regular Human [Humulin R] 2 - 10 unit SUBQ Q6HR 03/29/21 21:00 Insulin Glargine [Lantus Solostar] 30 unit SUBQ QPM 03/30/21 07:47 Metoclopramide [Reglan] 10 mg PO TID PRN 03/30/21 09:00 Tamsulosin [Flomax] 0.4 mg PO DAILY 03/31/21 05:00 BMP - BASIC METABOLIC PANEL [CHEM] DAILYLAB CBC - COMP BLD CT W/AUTO DIFF [HEME] DAILYLAB MAGNESIUM [CHEM] DAILYLAB 04/01/21 05:00 BMP - BASIC METABOLIC PANEL [CHEM] DAILYLAB CBC - COMP BLD CT W/AUTO DIFF [HEME] DAILYLAB 04/02/21 05:00 BMP - BASIC METABOLIC PANEL [CHEM] DAILYLAB CBC - COMP BLD CT W/AUTO DIFF [HEME] DAILYLAB Subjective - Subjective Patient Reports: Feeling Better (Is feeling thirsty and wants to try ice chips and popsicles) Nursing Reports: Nausea, Pain, Vomitting (RN reported he had vomiting when he tried sips of water) Objective Vital Signs: Vital Signs - 24 hr 03/29/21 03/29/21 03/29/21 17:00 18:00 19:00 Temperature Heart Rate [ 97 103 H 102 H Monitoring electrodes] Respiratory 19 16 12 Rate Blood Pressure Blood Pressure 131/78 H 207/112 H 157/92 H [Left Brachial artery] O2 Saturation 95 96 96 03/29/21 03/29/21 03/29/21 19:40 20:02 20:36 Temperature 36.7 C Heart Rate [ 105 H 94 Monitoring electrodes] Respiratory 17 13 Rate Blood Pressure Blood Pressure 217/125 H 207/110 H [Left Brachial artery] O2 Saturation 94 97 03/29/21 03/29/21 03/29/21 20:49 21:00 22:00 Temperature Heart Rate [ 95 102 H 93 Monitoring electrodes] Respiratory 18 22 14 Rate Blood Pressure Blood Pressure 221/125 H 226/107 H 139/81 H [Left Brachial artery] O2 Saturation 97 98 93 03/29/21 03/30/21 03/30/21 23:00 00:00 01:00 Temperature Heart Rate [ 98 89 91 Monitoring electrodes] Respiratory 14 13 16 Rate Blood Pressure Blood Pressure 184/107 H 155/102 H 161/106 H [Left Brachial artery] O2 Saturation 95 98 99 03/30/21 03/30/21 03/30/21 02:00 03:00 04:00 Temperature Heart Rate [ 90 82 89 Monitoring electrodes] Respiratory 14 26 H 17 Rate Blood Pressure Blood Pressure 195/124 H 111/73 201/183 H [Left Brachial artery] O2 Saturation 99 99 100 03/30/21 03/30/21 03/30/21 05:00 05:40 06:18 Temperature 36.7 C Heart Rate [ 82 82 80 Monitoring electrodes] Respiratory 14 12 15 Rate Blood Pressure Blood Pressure 192/107 H 178/101 H 127/93 H [Left Brachial artery] O2 Saturation 100 100 97 03/30/21 03/30/21 03/30/21 07:00 07:02 08:00 Temperature Heart Rate [ 86 84 85 Monitoring electrodes] Respiratory 24 12 12 Rate Blood Pressure Blood Pressure 207/125 H 207/125 H 208/120 H [Left Brachial artery] O2 Saturation 100 100 100 03/30/21 03/30/21 03/30/21 08:59 09:00 09:05 Temperature 36.7 C Heart Rate [ 90 88 Monitoring electrodes] Respiratory 19 Rate Blood Pressure 199/126 H Blood Pressure 119/26 L 194/107 H [Left Brachial artery] O2 Saturation 99 03/30/21 03/30/21 03/30/21 09:10 09:15 09:30 Temperature Heart Rate [ 91 88 89 Monitoring electrodes] Respiratory Rate Blood Pressure Blood Pressure 189/102 H 180/107 H 178/106 H [Left Brachial artery] O2 Saturation 03/30/21 03/30/21 03/30/21 09:45 09:59 10:20 Temperature Heart Rate [ 88 89 89 Monitoring electrodes] Respiratory 17 Rate Blood Pressure Blood Pressure 169/104 H 190/109 H 190/101 H [Left Brachial artery] O2 Saturation 100 03/30/21 03/30/21 03/30/21 10:25 10:30 10:35 Temperature Heart Rate [ 87 83 84 Monitoring electrodes] Respiratory Rate Blood Pressure Blood Pressure 178/93 H 156/91 H 153/90 H [Left Brachial artery] O2 Saturation 03/30/21 03/30/21 03/30/21 10:45 11:00 11:15 Temperature Heart Rate [ 87 91 84 Monitoring electrodes] Respiratory 19 25 H Rate Blood Pressure Blood Pressure 127/78 130/69 108/61 [Left Brachial artery] O2 Saturation 95 95 03/30/21 03/30/21 03/30/21 11:50 11:51 13:00 Temperature 36.8 C Heart Rate [ 86 90 100 Monitoring electrodes] Respiratory 16 20 Rate Blood Pressure Blood Pressure 166/110 H 192/105 H 143/88 H [Left Brachial artery] O2 Saturation 98 94 03/30/21 16:08 Temperature 36.7 C Heart Rate [ 98 Monitoring electrodes] Respiratory 21 Rate Blood Pressure Blood Pressure 197/108 H [Left Brachial artery] O2 Saturation 99 Oxygen O2 Source Room air I&O (Last 24 Hrs): Intake and Output Totals x24h 03/28/21 03/29/21 03/30/21 23:59 23:59 23:59 Intake Total 632.090 3033.416 1678.333 Output Total 0 2850 1375 Balance 428.844 4285.416 303.333 General: Alert, Oriented x3 HEENT: Mucous membr. moist/pink, Other (Right lower lip swelling has decreased but there is dried blood on that lip) Neuro: Alert, Non Focal (except his leg neuropathy sx) Respiratory: No respiratory distress, Breath sounds nml Abdomen: Soft, No tenderness Extremities: No edema, Other (Several toes amputated) - Results Results: Laboratory Results WBC 20.3 x10^3/uL (4.8-10.8) H 03/29/21 04:05 RBC 4.78 10^6/uL (4.70-6.10) 03/29/21 04:05 Hgb 14.6 g/dL (14.0-18.0) 03/29/21 04:05 Hct 42.6 % (42.0-52.0) 03/29/21 04:05 MCV 89.1 fL (80.0-94.0) 03/29/21 04:05 MCH 30.5 pg (27.0-31.0) 03/29/21 04:05 MCHC 34.3 g/dL (32.0-36.0) 03/29/21 04:05 RDW 13.6 % (12.0-15.0) 03/29/21 04:05 Plt Count 252 10^3/uL (130-450) 03/29/21 04:05 MPV 10.2 fL (7.4-11.4) 03/29/21 04:05 Neut # (Auto) Not Reportable 03/29/21 04:05 Lymph # (Auto) Not Reportable 03/29/21 04:05 [place] # (Auto) Not Reportable 03/29/21 04:05 Eos # (Auto) Not Reportable 03/29/21 04:05 Baso # (Auto) Not Reportable 03/29/21 04:05 Absolute Nucleated RBC Not Reportable 03/29/21 04:05 Total Counted 100 03/29/21 04:05 Band Neuts % (Manual) 2 % (0-10) 03/29/21 04:05 Abnorm Lymph % (Manual) 0 % 03/29/21 04:05 Nucleated RBC % Not Reportable 03/29/21 04:05 Neutrophils # (Manual) 17.7 10^3/uL (1.5-6.6) H 03/29/21 04:05 Lymphocytes # (Manual) 0.8 10^3/uL (1.5-3.5) L 03/29/21 04:05 Monocytes # (Manual) 1.8 10^3/uL (0.0-1.0) H 03/29/21 04:05 Eosinophils # (Manual) 0.0 10^3/uL (0-0.7) 03/29/21 04:05 Basophils # (Manual) 0.0 10^3/uL (0-0.1) 03/29/21 04:05 Differential Comment MANUAL DIFFERENTIAL 03/29/21 04:05 WBC Morphology NORMAL APPEARANCE (NORMAL) 03/29/21 04:05 Platelet Estimate NORMAL (130-450,000) (NORMAL) 03/29/21 04:05 Platelet Morphology NORMAL APPEARANCE (NORMAL) 03/29/21 04:05 RBC Morph Micro Appear NORMAL APPEARANCE (NORMAL) 03/29/21 04:05 VBG pH 7.367 (7.31-7.41) 03/30/21 05:45 VBG pCO2 28.2 mmHg (41-51) L 03/28/21 14:28 VBG pO2 35.7 mmHg (25-47) 03/28/21 14:28 VBG HCO3 16.6 mmol/L (23-28) L 03/28/21 14:28 VBG Total CO2 17.4 mmol/L (24-29) L 03/28/21 14:28 VBG O2 Saturation 70.0 % (60-80) 03/28/21 14:28 VBG Base Excess -6.9 mmol/L (-2 - +2) L 03/28/21 14:28 Ionized Calcium 1.18 mmol/L (1.15-1.33) 03/30/21 05:45 Sodium 140 mmol/L (135-145) 03/30/21 05:45 Potassium 4.0 mmol/L (3.5-5.0) 03/30/21 05:45 Chloride 104 mmol/L (101-111) 03/30/21 05:45 Carbon Dioxide 28 mmol/L (21-32) 03/30/21 05:45 Anion Gap 8.0 (6-13) 03/30/21 05:45 BUN 38 mg/dL (6-20) H 03/30/21 05:45 Creatinine 1.1 mg/dL (0.6-1.2) 03/30/21 05:45 Estimated GFR (MDRD) 67 (>89) L 03/30/21 05:45 Glucose 218 mg/dL (70-100) H 03/30/21 05:45 Estimat Average Glucose 217 mg/dL (70-100) H 03/29/21 04:05 Hemoglobin A1c % 9.2 % (4.27-6.07) H 03/29/21 04:05 Calcium 9.1 mg/dL (8.5-10.3) 03/30/21 05:45 Phosphorus 2.5 mg/dL (2.5-4.6) 03/30/21 05:45 Magnesium 2.4 mg/dL (1.7-2.8) 03/30/21 05:45 Total Bilirubin 2.3 mg/dL (0.2-1.0) H 03/28/21 09:50 AST 30 IU/L (10-42) 03/28/21 09:50 ALT 20 IU/L (10-60) 03/28/21 09:50 Alkaline Phosphatase 84 IU/L (42-121) 03/28/21 09:50 Total Protein 7.9 g/dL (6.7-8.2) 03/28/21 09:50 Albumin 4.6 g/dL (3.2-5.5) 03/28/21 09:50 Globulin 3.3 g/dL (2.1-4.2) 03/28/21 09:50 Albumin/Globulin Ratio 1.4 (1.0-2.2) 03/28/21 09:50 Triglycerides 136 mg/dL (-149) 03/29/21 04:05 Lipase 85 U/L (22-51) H 03/28/21 09:50 Urine Color YELLOW 03/29/21 21:04 Urine Clarity HAZY (CLEAR) 03/29/21 21:04 Urine pH 5.5 PH (5.0-7.5) 03/29/21 21:04 Ur Specific [place] 1.020 (1.002-1.030) 03/29/21 21:04 Urine Protein NEGATIVE mg/dL (NEGATIVE) 03/29/21 21:04 Urine Glucose (UA) >=1000 mg/dL (NEGATIVE) H 03/29/21 21:04 Urine Ketones 15 mg/dL (NEGATIVE) H 03/29/21 21:04 Urine Occult Blood SMALL (NEGATIVE) H 03/29/21 21:04 Urine Nitrite NEGATIVE (NEGATIVE) 03/29/21 21:04 Urine Bilirubin NEGATIVE (NEGATIVE) 03/29/21 21:04 Urine Urobilinogen 0.2 (NORMAL) E.U./dL (NORMAL) 03/29/21 21:04 Ur Leukocyte Esterase NEGATIVE (NEGATIVE) 03/29/21 21:04 Urine RBC 0-5 /HPF (0-5) 03/29/21 21:04 Urine WBC 0-3 /HPF (0-3) 03/29/21 21:04 Ur Squamous Epith Cells NONE SEEN (<= Few) 03/29/21 21:04 Urine Bacteria None Seen /HPF (None Seen) 03/29/21 21:04 Ur Microscopic Review INDICATED 03/29/21 21:04 Urine Culture Comments NOT INDICATED 03/29/21 21:04 Nasal Adenovirus (PCR) NOT DETECTED 03/28/21 11:12 Nasal B. parapertussis DNA (PCR) NOT DETECTED 03/28/21 11:12 Nasal Coronavir 229E PCR NOT DETECTED 03/28/21 11:12 Nasal Coronavir HKU1 PCR NOT DETECTED 03/28/21 11:12 Nasal Coronavir NL63 PCR NOT DETECTED 03/28/21 11:12 Nasal Coronavir OC43 PCR NOT DETECTED 03/28/21 11:12 Nasal Enterovir/Rhinovir PCR NOT DETECTED 03/28/21 11:12 Nasal Influenza B PCR NOT DETECTED 03/28/21 11:12 Nasal Influenza A PCR NOT DETECTED 03/28/21 11:12 Nasal Parainfluen 1 PCR NOT DETECTED 03/28/21 11:12 Nasal Parainfluen 2 PCR NOT DETECTED 03/28/21 11:12 Nasal Parainfluen 3 PCR NOT DETECTED 03/28/21 11:12 Nasal Parainfluen 4 PCR NOT DETECTED 03/28/21 11:12 Nasal RSV (PCR) NOT DETECTED 03/28/21 11:12 Nasal Screen MRSA (PCR) NEGATIVE (NEGATIVE) 03/28/21 16:45 Nasal B.pertussis DNA PCR NOT DETECTED 03/28/21 11:12 Nasal C.pneumoniae (PCR) NOT DETECTED 03/28/21 11:12 Nilesh Human Metapneumo PCR NOT DETECTED 03/28/21 11:12 Nasal M.pneumoniae (PCR) NOT DETECTED 03/28/21 11:12 Nasal SARS-CoV-2 (PCR) NOT DETECTED 03/28/21 11:12 Urine Opiates Screen NEGATIVE (NEGATIVE) 03/28/21 11:12 Ur Oxycodone Screen NEGATIVE (NEGATIVE) 03/28/21 11:12 Urine Methadone Screen NEGATIVE (NEGATIVE) 03/28/21 11:12 Ur Propoxyphene Screen NEGATIVE (NEGATIVE) 03/28/21 11:12 Ur Barbiturates Screen NEGATIVE (NEGATIVE) 03/28/21 11:12 Ur Tricyclics Screen NEGATIVE (NEGATIVE) 03/28/21 11:12 Ur Phencyclidine Scrn NEGATIVE (NEGATIVE) 03/28/21 11:12 Ur Amphetamine Screen NEGATIVE (NEGATIVE) 03/28/21 11:12 U Methamphetamines Scrn NEGATIVE (NEGATIVE) 03/28/21 11:12 U Benzodiazepines Scrn NEGATIVE (NEGATIVE) 03/28/21 11:12 Urine Cocaine Screen NEGATIVE (NEGATIVE) 03/28/21 11:12 U Cannabinoids Screen POSITIVE (NEGATIVE) H 03/28/21 11:12 Ethyl Alcohol < 5.0 mg/dL 03/28/21 09:50 Serum Ketones NEGATIVE (NEGATIVE) 03/29/21 04:05 - Procedures Procedures: Procedures DETACHMENT AT LEFT FOOT, PARTIAL 5TH RAY, OPEN APPROACH (12/20/19) EXCISION OF LEFT METATARSAL, OPEN APPROACH (12/06/19) INSERTION OF INFUSION DEV INTO SUP VENA CAVA, PERC APPROACH (05/28/20) INSERTION OF INFUSION DEVICE INTO R ATRIUM, PERC APPROACH (06/09/19) ULTRASONOGRAPHY OF SUPERIOR VENA CAVA, GUIDANCE (06/09/19)
[2021-03-30] MEDS: INSULIN GLARGINE 300 UNIT/3 ML PEN SUBQ SCH (20:45)
[2021-03-31] MEDS: INSULIN REGULAR HUMAN 300 UNIT/3 ML VIAL SUBQ SCH ×4 (00:32→18:40)
[2021-03-31] MEDS: PROCHLORPERAZINE 10 MG/2 ML VIAL IVP PRN ×2 (02:40→22:35)
[2021-03-31] MEDS: ONDANSETRON 4 MG/2 ML VIAL IVP PRN ×2 (05:24→20:35)
[2021-03-31 06:17] LABS: BASOPHILS % (AUTO) 0.1 %; EOSINOPHILS % (AUTO) 0.1 %; HCT - HEMATOCRIT 41.5 % (42.0-52.0); LYMPHOCYTES % (AUTO) 13.6 %; MEAN CORPUSCULAR HEMOGLOBIN 30.4 pg (27.0-31.0); MEAN CORPUSCULAR HGB CONC 33.7 g/dL (32.0-36.0); MEAN CORPUSCULAR VOLUME 90.2 fL (80.0-94.0); MEAN PLATELET VOLUME 10.2 fL (7.4-11.4); MONOCYTES # (AUTO) 0.8 10^3/uL (0.0-1.0); MONOCYTES % (AUTO) 11.4 %; NEUTROPHILS # (AUTO) 5.2 10^3/uL (1.5-6.6); NEUTROPHILS % (AUTO) 74.5 %; PLT - PLATELET COUNT 185 10^3/uL (130-450); RED CELL DISTRIBUTION WIDTH 13.1 % (12.0-15.0)
[2021-03-31 06:29] LABS: CALCIUM 8.7 mg/dL (8.5-10.3); CREATININE 1.1 mg/dL (0.6-1.2); POTASSIUM 3.7 mmol/L (3.5-5.0)
[2021-03-31] MEDS: D5.45NS W/20 MEQ KCL 1,000 ML IV SCH ×2 (08:50→19:20)
[2021-03-31] MEDS: FAMOTIDINE 20 MG/2 ML VIAL IVP SCH ×2 (09:04→20:50)
[2021-03-31] MEDS: SODIUM CHLORIDE FLUSH 0.9% 10 ML SYRINGE IVP SCH ×2 (09:05→20:35)
[2021-03-31] MEDS: ENOXAPARIN 100 MG/ML SYRINGE SUBQ SCH ×2 (10:01→20:49)
[2021-03-31] MEDS: TAMSULOSIN 0.4 MG CAPSULE PO SCH (10:01)
[2021-03-31] MEDS: METOCLOPRAMIDE 10 MG TABLET PO PRN ×2 (10:01→19:30)
[2021-03-31] MEDS ORDERED: PROCHLORPERAZINE 10 MG/2 ML VIAL ONE (16:48)
[2021-03-31] MEDS: INSULIN GLARGINE 300 UNIT/3 ML PEN SUBQ SCH (20:48)
--- NOTE | 2021-03-31 20:52 | PROVIDER PROGRESS NOTE ---
Assessment/Plan - Problem List (1) IDDM (insulin dependent diabetes mellitus) Assessment/Plan: He is still NPO ecxept chips and popsicles, therefore on a ss Insulin coverage for NPO and a lower dose of his usual Lantus. Will request PT to start, as he may be getting deconditioned. (2) Gastroparesis diabeticorum Assessment/Plan: He knows that his gastroparesis sx can last 4-5 days until he gets relief and can handle food and liquids We restarted the scheduled Reglan (3) KI (acute kidney injury) Assessment/Plan: Improved after iv fluids given (4) Hx of coronary artery disease Assessment/Plan: His essential meds are given by iv (5) Afib Qualifiers: Atrial fibrillation type: paroxysmal Qualified Code(s): I48.0 - Paroxysmal atrial fibrillation Assessment/Plan: His essential meds are given by iv or sq (6) Cannabis misuse Assessment/Plan: Previously advised to stop using marijuana (7) DKA (diabetic ketoacidosis) Qualifiers: Diabetes mellitus type: due to underlying condition Diabetes mellitus complication detail: without coma Qualified Code(s): E08.10 - Diabetes mellitus due to underlying condition with ketoacidosis without coma Assessment/Plan: Resiolved - Current Meds Current Meds: Current Medications Generic Name Dose Route Start Last Admin Trade Name Michael PRN Reason Stop Dose Admin Enoxaparin Sodium 100 mg 03/29/21 09:00 03/31/21 10:01 Enoxaparin 100 Mg/Ml Syringe SUBQ 100 mg BID NATHANIEL Administration Famotidine 20 mg 03/28/21 21:00 03/31/21 09:04 Famotidine 20 Mg/2 Ml Vial IVP 20 mg BID NATHANIEL Administration Potassium Chloride/Dextrose/Sod Cl 1,000 mls @ 100 mls/hr 03/29/21 06:57 01/06/17 19:20 D5.45ns W/20 Meq Kcl IV 100 mls/hr .Q10H NATHANIEL Administration Insulin Glargine 30 unit 03/29/21 21:00 03/30/21 20:45 Insulin Glargine 300 Unit/3 Ml Pen SUBQ 30 unit QPM NATHANIEL Administration Insulin Human Regular 3 - 11 unit 03/31/21 00:00 03/31/21 18:40 Insulin Regular Human 300 Unit/3 Ml Vial SUBQ 9 unit Q6HR NATHANIEL Administration Protocol Labetalol HCl 10 mg 03/28/21 23:49 03/30/21 10:22 Labetalol 20 Mg/4 Ml Syringe IVP 10 mg Q6H PRN Administration PER PHYSICIAN ORDER Metoclopramide HCl 10 mg 03/30/21 07:47 03/31/21 10:01 Metoclopramide 10 Mg Tablet PO 10 mg TID PRN Administration Nausea / Vomiting Ondansetron HCl 4 mg 03/28/21 14:07 03/31/21 20:35 Ondansetron 4 Mg/2 Ml Vial IVP 4 mg Q6HR PRN Administration Nausea / Vomiting Prochlorperazine Edisylate 10 mg 03/28/21 14:07 03/31/21 02:40 Prochlorperazine 10 Mg/2 Ml Vial IVP 10 mg Q6HR PRN Administration Nausea / Vomiting Sodium Chloride 10 ml 03/28/21 17:00 03/31/21 20:35 Sodium Chloride Flush 0.9% 10 Ml Syringe IVP 10 ml 0100,0900,1700 NATHANIEL Administration Sodium Chloride 10 ml 03/28/21 14:07 03/30/21 05:12 Sodium Chloride Flush 0.9% 10 Ml Syringe IVP 20 ml PRN PRN Administration NEEDED PER PROVIDER ORDERS Tamsulosin HCl 0.4 mg 03/30/21 09:00 03/31/21 10:01 Tamsulosin 0.4 Mg Capsule PO 0.4 mg DAILY NATHANIEL Administration - Lab Result Fish Bone Diagrams: 03/31/21 05:50 03/31/21 05:50 - Additional Planning My Orders: My Active Orders 03/31/21 00:00 Insulin Regular Human [Humulin R] 3 - 11 unit SUBQ Q6HR 04/01/21 05:00 ALBUMIN [CHEM] DAILYLAB BMP - BASIC METABOLIC PANEL [CHEM] DAILYLAB CBC - COMP BLD CT W/AUTO DIFF [HEME] DAILYLAB MAGNESIUM [CHEM] DAILYLAB 04/02/21 05:00 BMP - BASIC METABOLIC PANEL [CHEM] DAILYLAB CBC - COMP BLD CT W/AUTO DIFF [HEME] DAILYLAB Subjective - Subjective Patient Reports: Abdominal Pain, Nausea (Still threw up last night) Objective Vital Signs: Vital Signs - 24 hr 03/30/21 03/31/21 03/31/21 22:01 01:18 02:15 Temperature Heart Rate [ Activity] Heart Rate [ 92 92 88 Monitoring electrodes] Heart Rate [ Sitting] Respiratory 14 11 L 15 Rate Blood Pressure [Activity] Blood Pressure 126/84 H 104/73 [Left Brachial artery] Blood Pressure [Sitting] O2 Saturation 95 94 93 03/31/21 03/31/21 03/31/21 04:00 09:00 14:05 Temperature Heart Rate [ 90 Activity] Heart Rate [ 93 96 Monitoring electrodes] Heart Rate [ 82 Sitting] Respiratory 14 18 Rate Blood Pressure 165/109 H [Activity] Blood Pressure 131/85 H 156/91 H [Left Brachial artery] Blood Pressure 141/90 H [Sitting] O2 Saturation 92 95 03/31/21 03/31/21 17:00 20:39 Temperature 37.4 C 37.2 C Heart Rate [ Activity] Heart Rate [ 94 93 Monitoring electrodes] Heart Rate [ Sitting] Respiratory 11 L 16 Rate Blood Pressure [Activity] Blood Pressure 181/109 H 173/102 H [Left Brachial artery] Blood Pressure [Sitting] O2 Saturation 95 93 Oxygen O2 Source Room air I&O (Last 24 Hrs): Intake and Output Totals x24h 03/29/21 03/30/21 03/31/21 23:59 23:59 23:59 Intake Total 8437.416 2796.666 2121.667 Output Total 2850 1825 1225 Balance 5587.416 971.666 896.667 General: Alert, Oriented x3 HEENT: Mucous membr. moist/pink, Other (R lower lip less swollen) Neck: Supple Neuro: Alert, Non Focal, Other (except sensations in feet are abnormal) Cardiovascular: Regular rate, No murmurs Respiratory: No respiratory distress, Breath sounds nml Abdomen: Normal bowel sounds, Soft, No tenderness Extremities: No edema, Other (several toes are amputated) - Results Results: Laboratory Results WBC 7.0 x10^3/uL (4.8-10.8) 03/31/21 05:50 RBC 4.60 10^6/uL (4.70-6.10) L 03/31/21 05:50 Hgb 14.0 g/dL (14.0-18.0) 03/31/21 05:50 Hct 41.5 % (42.0-52.0) L 03/31/21 05:50 MCV 90.2 fL (80.0-94.0) 03/31/21 05:50 MCH 30.4 pg (27.0-31.0) 03/31/21 05:50 MCHC 33.7 g/dL (32.0-36.0) 03/31/21 05:50 RDW 13.1 % (12.0-15.0) 03/31/21 05:50 Plt Count 185 10^3/uL (130-450) 03/31/21 05:50 MPV 10.2 fL (7.4-11.4) 03/31/21 05:50 Neut # (Auto) 5.2 10^3/uL (1.5-6.6) 03/31/21 05:50 Lymph # (Auto) 1.0 10^3/uL (1.5-3.5) L 03/31/21 05:50 Irion # (Auto) 0.8 10^3/uL (0.0-1.0) 03/31/21 05:50 Eos # (Auto) 0.0 10^3/uL (0.0-0.7) 03/31/21 05:50 Baso # (Auto) 0.0 10^3/uL (0.0-0.1) 03/31/21 05:50 Absolute Nucleated RBC 0.00 x10^3/uL 03/31/21 05:50 Total Counted 100 03/29/21 04:05 Band Neuts % (Manual) 2 % (0-10) 03/29/21 04:05 Abnorm Lymph % (Manual) 0 % 03/29/21 04:05 Nucleated RBC % 0.0 /100WBC 03/31/21 05:50 Neutrophils # (Manual) 17.7 10^3/uL (1.5-6.6) H 03/29/21 04:05 Lymphocytes # (Manual) 0.8 10^3/uL (1.5-3.5) L 03/29/21 04:05 Monocytes # (Manual) 1.8 10^3/uL (0.0-1.0) H 03/29/21 04:05 Eosinophils # (Manual) 0.0 10^3/uL (0-0.7) 03/29/21 04:05 Basophils # (Manual) 0.0 10^3/uL (0-0.1) 03/29/21 04:05 Differential Comment MANUAL DIFFERENTIAL 03/29/21 04:05 WBC Morphology NORMAL APPEARANCE (NORMAL) 03/29/21 04:05 Platelet Estimate NORMAL (130-450,000) (NORMAL) 03/29/21 04:05 Platelet Morphology NORMAL APPEARANCE (NORMAL) 03/29/21 04:05 RBC Morph Micro Appear NORMAL APPEARANCE (NORMAL) 03/29/21 04:05 VBG pH 7.367 (7.31-7.41) 03/30/21 05:45 VBG pCO2 28.2 mmHg (41-51) L 03/28/21 14:28 VBG pO2 35.7 mmHg (25-47) 03/28/21 14:28 VBG HCO3 16.6 mmol/L (23-28) L 03/28/21 14:28 VBG Total CO2 17.4 mmol/L (24-29) L 03/28/21 14:28 VBG O2 Saturation 70.0 % (60-80) 03/28/21 14:28 VBG Base Excess -6.9 mmol/L (-2 - +2) L 03/28/21 14:28 Ionized Calcium 1.18 mmol/L (1.15-1.33) 03/30/21 05:45 Sodium 135 mmol/L (135-145) 03/31/21 05:50 Potassium 3.7 mmol/L (3.5-5.0) 03/31/21 05:50 Chloride 100 mmol/L (101-111) L 03/31/21 05:50 Carbon Dioxide 25 mmol/L (21-32) 03/31/21 05:50 Anion Gap 10.0 (6-13) 03/31/21 05:50 BUN 24 mg/dL (6-20) H 03/31/21 05:50 Creatinine 1.1 mg/dL (0.6-1.2) 03/31/21 05:50 Estimated GFR (MDRD) 67 (>89) L 03/31/21 05:50 Glucose 248 mg/dL (70-100) H 03/31/21 05:50 Estimat Average Glucose 217 mg/dL (70-100) H 03/29/21 04:05 Hemoglobin A1c % 9.2 % (4.27-6.07) H 03/29/21 04:05 Calcium 8.7 mg/dL (8.5-10.3) 03/31/21 05:50 Phosphorus 2.5 mg/dL (2.5-4.6) 03/30/21 05:45 Magnesium 2.0 mg/dL (1.7-2.8) 03/31/21 05:50 Total Bilirubin 2.3 mg/dL (0.2-1.0) H 03/28/21 09:50 AST 30 IU/L (10-42) 03/28/21 09:50 ALT 20 IU/L (10-60) 03/28/21 09:50 Alkaline Phosphatase 84 IU/L (42-121) 03/28/21 09:50 Total Protein 7.9 g/dL (6.7-8.2) 03/28/21 09:50 Albumin 4.6 g/dL (3.2-5.5) 03/28/21 09:50 Globulin 3.3 g/dL (2.1-4.2) 03/28/21 09:50 Albumin/Globulin Ratio 1.4 (1.0-2.2) 03/28/21 09:50 Triglycerides 136 mg/dL (-149) 03/29/21 04:05 Lipase 85 U/L (22-51) H 03/28/21 09:50 Urine Color YELLOW 03/29/21 21:04 Urine Clarity HAZY (CLEAR) 03/29/21 21:04 Urine pH 5.5 PH (5.0-7.5) 03/29/21 21:04 Ur Specific [place] 1.020 (1.002-1.030) 03/29/21 21:04 Urine Protein NEGATIVE mg/dL (NEGATIVE) 03/29/21 21:04 Urine Glucose (UA) >=1000 mg/dL (NEGATIVE) H 03/29/21 21:04 Urine Ketones 15 mg/dL (NEGATIVE) H 03/29/21 21:04 Urine Occult Blood SMALL (NEGATIVE) H 03/29/21 21:04 Urine Nitrite NEGATIVE (NEGATIVE) 03/29/21 21:04 Urine Bilirubin NEGATIVE (NEGATIVE) 03/29/21 21:04 Urine Urobilinogen 0.2 (NORMAL) E.U./dL (NORMAL) 03/29/21 21:04 Ur Leukocyte Esterase NEGATIVE (NEGATIVE) 03/29/21 21:04 Urine RBC 0-5 /HPF (0-5) 03/29/21 21:04 Urine WBC 0-3 /HPF (0-3) 03/29/21 21:04 Ur Squamous Epith Cells NONE SEEN (<= Few) 03/29/21 21:04 Urine Bacteria None Seen /HPF (None Seen) 03/29/21 21:04 Ur Microscopic Review INDICATED 03/29/21 21:04 Urine Culture Comments NOT INDICATED 03/29/21 21:04 Nasal Adenovirus (PCR) NOT DETECTED 03/28/21 11:12 Nasal B. parapertussis DNA (PCR) NOT DETECTED 03/28/21 11:12 Nasal Coronavir 229E PCR NOT DETECTED 03/28/21 11:12 Nasal Coronavir HKU1 PCR NOT DETECTED 03/28/21 11:12 Nasal Coronavir NL63 PCR NOT DETECTED 03/28/21 11:12 Nasal Coronavir OC43 PCR NOT DETECTED 03/28/21 11:12 Nasal Enterovir/Rhinovir PCR NOT DETECTED 03/28/21 11:12 Nasal Influenza B PCR NOT DETECTED 03/28/21 11:12 Nasal Influenza A PCR NOT DETECTED 03/28/21 11:12 Nasal Parainfluen 1 PCR NOT DETECTED 03/28/21 11:12 Nasal Parainfluen 2 PCR NOT DETECTED 03/28/21 11:12 Nasal Parainfluen 3 PCR NOT DETECTED 03/28/21 11:12 Nasal Parainfluen 4 PCR NOT DETECTED 03/28/21 11:12 Nasal RSV (PCR) NOT DETECTED 03/28/21 11:12 Nasal Screen MRSA (PCR) NEGATIVE (NEGATIVE) 03/28/21 16:45 Nasal B.pertussis DNA PCR NOT DETECTED 03/28/21 11:12 Nasal C.pneumoniae (PCR) NOT DETECTED 03/28/21 11:12 Nilesh Human Metapneumo PCR NOT DETECTED 03/28/21 11:12 Nasal M.pneumoniae (PCR) NOT DETECTED 03/28/21 11:12 Nasal SARS-CoV-2 (PCR) NOT DETECTED 03/28/21 11:12 Urine Opiates Screen NEGATIVE (NEGATIVE) 03/28/21 11:12 Ur Oxycodone Screen NEGATIVE (NEGATIVE) 03/28/21 11:12 Urine Methadone Screen NEGATIVE (NEGATIVE) 03/28/21 11:12 Ur Propoxyphene Screen NEGATIVE (NEGATIVE) 03/28/21 11:12 Ur Barbiturates Screen NEGATIVE (NEGATIVE) 03/28/21 11:12 Ur Tricyclics Screen NEGATIVE (NEGATIVE) 03/28/21 11:12 Ur Phencyclidine Scrn NEGATIVE (NEGATIVE) 03/28/21 11:12 Ur Amphetamine Screen NEGATIVE (NEGATIVE) 03/28/21 11:12 U Methamphetamines Scrn NEGATIVE (NEGATIVE) 03/28/21 11:12 U Benzodiazepines Scrn NEGATIVE (NEGATIVE) 03/28/21 11:12 Urine Cocaine Screen NEGATIVE (NEGATIVE) 03/28/21 11:12 U Cannabinoids Screen POSITIVE (NEGATIVE) H 03/28/21 11:12 Ethyl Alcohol < 5.0 mg/dL 03/28/21 09:50 Serum Ketones NEGATIVE (NEGATIVE) 03/29/21 04:05 - Procedures Procedures: Procedures DETACHMENT AT LEFT FOOT, PARTIAL 5TH RAY, OPEN APPROACH (12/20/19) EXCISION OF LEFT METATARSAL, OPEN APPROACH (12/06/19) INSERTION OF INFUSION DEV INTO SUP VENA CAVA, PERC APPROACH (05/28/20) INSERTION OF INFUSION DEVICE INTO R ATRIUM, PERC APPROACH (06/09/19) ULTRASONOGRAPHY OF SUPERIOR VENA CAVA, GUIDANCE (06/09/19)
[2021-03-31] MEDS: SODIUM CHLORIDE FLUSH 0.9% 10 ML SYRINGE IVP PRN (22:35)
[2021-04-01] MEDS: SODIUM CHLORIDE FLUSH 0.9% 10 ML SYRINGE IVP SCH ×3 (01:46→17:23)
[2021-04-01] MEDS: INSULIN REGULAR HUMAN 300 UNIT/3 ML VIAL SUBQ SCH ×2 (01:46→06:24)
[2021-04-01] MEDS: ONDANSETRON 4 MG/2 ML VIAL IVP PRN ×2 (03:01→18:46)
[2021-04-01] MEDS: METOCLOPRAMIDE 10 MG TABLET PO PRN ×2 (03:56→16:28)
[2021-04-01] MEDS: PROCHLORPERAZINE 10 MG/2 ML VIAL IVP PRN ×3 (04:32→22:14)
[2021-04-01 07:05] LABS: BASOPHILS % (AUTO) 0.2 %; EOSINOPHILS % (AUTO) 0.5 %; HCT - HEMATOCRIT 43.8 % (42.0-52.0); HGB - HEMOGLOBIN 14.6 g/dL (14.0-18.0); LYMPHOCYTES # (AUTO) 0.8 10^3/uL (1.5-3.5); LYMPHOCYTES % (AUTO) 12.4 %; MEAN CORPUSCULAR HEMOGLOBIN 30.3 pg (27.0-31.0); MEAN CORPUSCULAR HGB CONC 33.3 g/dL (32.0-36.0); MEAN CORPUSCULAR VOLUME 90.9 fL (80.0-94.0); MEAN PLATELET VOLUME 10.4 fL (7.4-11.4); MONOCYTES # (AUTO) 0.8 10^3/uL (0.0-1.0); MONOCYTES % (AUTO) 12.2 %; NEUTROPHILS # (AUTO) 4.9 10^3/uL (1.5-6.6); NEUTROPHILS % (AUTO) 74.4 %; PLT - PLATELET COUNT 198 10^3/uL (130-450); RED BLOOD COUNT 4.82 10^6/uL (4.70-6.10); RED CELL DISTRIBUTION WIDTH 12.9 % (12.0-15.0); WHITE BLOOD COUNT 6.6 x10^3/uL (4.8-10.8)
[2021-04-01 07:10] LABS: ALBUMIN 3.6 g/dL (3.2-5.5); CALCIUM 8.8 mg/dL (8.5-10.3); CREATININE 1.1 mg/dL (0.6-1.2); POTASSIUM 3.9 mmol/L (3.5-5.0)
[2021-04-01] MEDS: TAMSULOSIN 0.4 MG CAPSULE PO SCH (09:35)
[2021-04-01] MEDS: ENOXAPARIN 100 MG/ML SYRINGE SUBQ SCH ×2 (09:36→22:19)
[2021-04-01] MEDS: FAMOTIDINE 20 MG/2 ML VIAL IVP SCH ×2 (09:36→22:16)
[2021-04-01] MEDS: INSULIN ASPART 300 UNIT/3 ML PEN SUBQ SCH ×4 (12:45→22:27)
--- NOTE | 2021-04-01 13:50 | HISTORY & PHYSICAL EXAMINATION ---
History - Past Medical History Cardiovascular: reports: Hypertension, High cholesterol, GA, Atrial fibrillation Respiratory: reports: None Neuro: reports: Cerebral palsy, Peripheral neuropathy, Other Endocrine/Autoimmune: reports: Type 2 diabetes GI: reports: GERD, Other (Gastroparesis) : reports: Benign prostate hypertrophy HEENT: reports: Chronic vision loss, Other Psych: reports: Claustrophobia Musculoskeletal: reports: Osteoarthritis Derm: reports: None MRSA Hx?: No - Past Surgical History General: reports: Appendectomy Ortho: reports: Amputation, Other Cardiovascular: reports: Other - Family & Social History Family History: Father: Cancer, Sister: Diabetes, Type 1, Brother: Cancer, Diabetes, Type 1 Living arrangement: At home Living Situation: Alone Social History Notes: He smokes marijuana on a weekly basis but no tobacco products. He drinks alcohol occasionally. No other recreational substance abuse. 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 - Substance History Use: Uses substance without health or social issues: Alcohol, Cannabis - POLST Patient has POLST: No POLST Status: Full Code Meds/Allgy - Home Medications Home Medications: Ambulatory Orders Medication Instructions Recorded Confirmed Tamsulosin [Flomax] 0.4 mg PO DAILY 06/09/19 03/28/21 Metoclopramide [Reglan] 10 mg PO TID PRN 12/07/19 03/28/21 Ondansetron Odt [Zofran Odt] 4 mg PO Q6H PRN 05/29/20 03/28/21 Apixaban [Eliquis] 5 mg PO BID 01/24/21 03/28/21 Omeprazole 40 mg PO DAILY 01/24/21 03/28/21 Insulin Aspart [Novolog Flexpen] 5 - 8 unit SQ TIDWM 02/24/21 03/28/21 Insulin Glargine [Lantus Solostar] 70 units SUBQ QPM 02/24/21 03/28/21 - Allergies Allergies/Adverse Reactions: Allergies Allergy/AdvReac Type Severity Reaction Status Date / Time No Known Drug Allergies Allergy Verified 03/28/21 13:49 Exam - Vital Signs Vital Signs: Vital Signs x48h Temp Pulse Resp BP Pulse Ox 04/01/21 09:00 36.4 C L 100 15 154/109 H 99 04/01/21 06:42 145/76 H 04/01/21 05:56 37 C 96 17 188/109 H 100 Conclusion/Plan - Problem List (1) Gastroparesis diabeticorum Conclusion/Plan: This gentleman developed diabetes in 1990 and is a type 1.5 being treated as a type I. He has been noncompliant with medications, use of recreational substances such as cannabis, diet, etc. Whereas his symptoms used to be mild, they have gotten progressively worse over the last few months. In reading his chart notes from his primary care provider he has received extensive instruction in how to manage himself but he really has been noncompliant with that. Glucose continues to be consistently elevated and his hemoglobin A1c is 9% with this admission. He is miserable with this. He is telling me that he is come to the conclusion that he probably has to stop using marijuana to see if that is the causative agent. We will IM happy at that news, I did tell him that only time will tell. He really needs to stay off cannabis for months at a time before you can link th e 2 (gastroparesis and cannabis). He really needs to modify his diet and I have given him the algorithm from up-to-date in the management of gastroparesis. If he continues to get worse, he may need to have frequent JG tube feedings. He also needs to get his diabetes under control. And he needs to take Reglan and Zofran regularly. At this time we are just awaiting his current episode to improve. He was on clear liquids yesterday and today and can barely tolerate just keeping juice down. He describes an episode where he had "spasm of his diaphragm" and he could not breathe. That is why he came into the hospital. I also gave him another option for treatment, and that would be a gastric pacer. His primary care provider would need to refer him to gastroenterology who would then find the appropriate specialist in [place]. He knows that his gastroparesis sx can last 4-5 days until he gets relief and can handle food and liquids We restarted the scheduled Reglan (2) IDDM (insulin dependent diabetes mellitus) Assessment/Plan: He is still NPO ecxept chips and popsicles, therefore on a ss Insulin coverage for NPO and a lower dose of his usual Lantus. Will request PT to start, as he may be getting deconditioned. (3) KI (acute kidney injury) Assessment/Plan: Improved after iv fluids given (4) Hx of coronary artery disease Assessment/Plan: When he was hospitalized in the spring 2019 here at this hospital, he had an elevated troponin level associated with his DKA episode. Echocardiogram was unremarkable. He was started on carvedilol, losartan and had amlodipine added because of hypertension. He was also supposed to be on aspirin and of atorvastatin. He was referred to Cardiology and with that visit with cardiology he did explain that he is not always compliant with these medications because of cost, convenience and is getting to the store. He was seen by Dr. Dax Rivers at [facility]. He underwent a elective left heart cath September 08, 2019. He had a left ventricular end-diastolic pressure of 12 to 15 mmHg.. No significant aortic valve gradient. Ejection fraction was 65% without wall motion abnormalities. The left main was large without stenosis. The LAD coursed around the apex and had a 95% tubular stenosis. His first diagonal was large with luminal irregularities. His circumflex was large with luminal irregularities. The first obtuse marginal was small medium size w ith luminal irregularities. The second and third obtuse marginals were also medium to large with luminal irregularities. The right coronary artery was large, dominant, 50% stenosis distally. The right PDA and the right PLS were large vessels with luminal irregularities. He underwent a successful PCI of the LAD using a 4 x 20 Synergy WILLIS with 0% residual stenosis. He was discharged on aspirin, Plavix. (5) Afib Qualifiers: Atrial fibrillation type: paroxysmal Qualified Code(s): I48.0 - Paroxysmal atrial fibrillation Assessment/Plan: His essential meds are given by iv or sq (6) Cannabis misuse Assessment/Plan: Previously advised to stop using marijuana (7) DKA (diabetic ketoacidosis) Qualifiers: Diabetes mellitus type: due to underlying condition Diabetes mellitus complication detail: without coma Qualified Code(s): E08.10 - Diabetes mellitus due to underlying condition with ketoacidosis without coma Assessment/Plan: Resiolved - Lab Results Fish Bones: 04/01/21 06:45 04/01/21 06:45
--- NOTE | 2021-04-01 14:08 | PROVIDER PROGRESS NOTE ---
Subjective - Prog Note Date Prog Note Date: 04/01/21 Prog Note Time: 14:06 - Subjective Pt reports feeling: No change Subjective: He and longer and longer to recover from these episodes of gastroparesis. Usually a day or 2 is all he needs of fluids and antiemetics but last time in this time I will not short episodes. He admits that he is still using cannabis and is wondering if maybe we are right and he needs to stop since it is associated with cyclical vomiting. He also endorses that it has been difficult at times for him to access medicines due to cost or convenience and has been noncompliant with medication use or diet or behavior. He is just so tired of being here and wishes that he could keep food down. Right now even keeping juice down is difficult for him. He denies abdominal pain, nausea. The nausea only happens when he eats. No change in bowel habits. No blood in his stool, no blood in his emesis. He describes what made him come in. While he is familiar with his nausea and vomiting from gastroparesis, he states that this time it was associated with a sudden episode that made him call EMS. He was standing at the kitchen counter, trying to swallow ice water but he could not sit which come right back up. And after several minutes of this he was seized by sudden "spasm" in his lungs "froze up" and he could not breathe. He says it went on for about 4 hours. He asked if there was something wrong with his lungs that would do this. He is adamant that he was not breathing. I carefully explained to him that he would have lost consciousness within a few minutes and would have been if he really had not breathe for 4 hours. He denied antecedent chest pain, cough, shortness of breath, palpitations. It was just "a spasm" that he could not breathe which. Current Medications - Current Medications Current Medications: Active Medications Enoxaparin Sodium (Enoxaparin 100 Mg/Ml Syringe) 100 mg SUBQ BID [facility] Last Admin: 04/01/21 09:36 Dose: 100 mg Documented by: Famotidine (Famotidine 20 Mg/2 Ml Vial) 20 mg IVP BID [facility] Last Admin: 04/01/21 09:36 Dose: 20 mg Documented by: Insulin Aspart (Insulin Aspart 300 Unit/3 Ml Pen) 1 - 5 unit SUBQ 0800,1200,1700,2100 [facility]; Protocol Last Admin: 04/01/21 12:45 Dose: 3 unit Documented by: Insulin Glargine (Insulin Glargine 300 Unit/3 Ml Pen) 30 unit SUBQ QPM [facility] Last Admin: 03/31/21 20:48 Dose: 30 unit Documented by: Labetalol HCl (Labetalol 20 Mg/4 Ml Syringe) 10 mg IVP Q6H PRN PRN Reason: PER PHYSICIAN ORDER Last Admin: 03/30/21 10:22 Dose: 10 mg Documented by: Metoclopramide HCl (Metoclopramide 10 Mg Tablet) 10 mg PO TID PRN PRN Reason: Nausea / Vomiting Last Admin: 04/01/21 03:56 Dose: 10 mg Documented by: Ondansetron HCl (Ondansetron 4 Mg/2 Ml Vial) 4 mg IVP Q6HR PRN PRN Reason: Nausea / Vomiting Last Admin: 04/01/21 03:01 Dose: 4 mg Documented by: Prochlorperazine Edisylate (Prochlorperazine 10 Mg/2 Ml Vial) 10 mg IVP Q6HR PRN PRN Reason: Nausea / Vomiting Last Admin: 04/01/21 13:36 Dose: 10 mg Documented by: Sodium Chloride (Sodium Chloride Flush 0.9% 10 Ml Syringe) 10 ml IVP 0100 ,0900,1700 [facility] Last Admin: 04/01/21 09:36 Dose: 10 ml Documented by: Sodium Chloride (Sodium Chloride Flush 0.9% 10 Ml Syringe) 10 ml IVP PRN PRN PRN Reason: NEEDED PER PROVIDER ORDERS Last Admin: 03/31/21 22:35 Dose: 10 ml Documented by: Tamsulosin HCl (Tamsulosin 0.4 Mg Capsule) 0.4 mg PO DAILY [facility] Last Admin: 04/01/21 09:35 Dose: 0.4 mg Documented by: Tamsulosin [Flomax] 0.4 mg PO DAILY 06/09/19 Metoclopramide [Reglan] 10 mg PO TID PRN 12/07/19 Ondansetron Odt [Zofran Odt] 4 mg PO Q6H PRN 05/29/20 Apixaban [Eliquis] 5 mg PO BID 01/24/21 Omeprazole 40 mg PO DAILY 01/24/21 Insulin Aspart [Novolog Flexpen] 5 - 8 unit SQ TIDWM 02/24/21 Insulin Glargine [Lantus Solostar] 70 units SUBQ QPM 02/24/21 Objective - Vital Signs/Intake & Output Reviewed Vital Signs: Yes Vital Signs: Vital Signs x48h Temp Pulse Resp BP Pulse Ox 04/01/21 13:00 37 C 104 H 18 174/91 H 100 04/01/21 09:00 36.4 C L 100 15 154/109 H 99 04/01/21 06:42 145/76 H Intake & Output: Intake & Output 03/29/21 03/30/21 03/31/21 04/01/21 23:59 23:59 23:59 23:59 Intake Total 8437.416 2796.666 2396.667 100 Output Total 2850 1825 1225 200 Balance 5587.416 817.288 3539.667 -100 - Objective General Appearance: positive: No acute distress, Alert, Other (6 foot 2 inch white male 106 kg with mild abdominal obesity. Comfortable, watching TV and struggling to keep 4 ounces of juice down) Eyes Bilateral: positive: PERRL, EOMI ENT: positive: No signs of dehydration Neck: positive: No JVD. negative: Stiff neck Respiratory: positive: No respiratory distress. negative: Wheezes, Rales, Rhonchi Cardiovascular: positive: Regular rate & rhythm. negative: Gallop/S4, Friction rub Abdomen: positive: Non-tender, No organomegaly, Nml bowel sounds, No distention, Other (moderate large, pendulous abd panus) Skin: positive: Warm, Dry Extremities: positive: Full ROM, No pedal edema Neurologic/Psychiatric: positive: Oriented x3, CN's nml (2-12), Motor nml - Lab Results Fish Bones: 04/01/21 06:45 04/01/21 06:45 Other Labs: Lab Results x24hrs 04/01/21 04/01/21 Range/Units 06:45 06:45 WBC 6.6 (4.8-10.8) x10^3/uL RBC 4.82 (4.70-6.10) 10^6/uL Hgb 14.6 (14.0-18.0) g/dL Hct 43.8 (42.0-52.0) % MCV 90.9 (80.0-94.0) fL MCH 30.3 (27.0-31.0) pg MCHC 33.3 (32.0-36.0) g/dL RDW 12.9 (12.0-15.0) % Plt Count 198 (130-450) 10^3/uL MPV 10.4 (7.4-11.4) fL Neut # (Auto) 4.9 (1.5-6.6) 10^3/uL Lymph # (Auto) 0.8 L (1.5-3.5) 10^3/uL [place] # (Auto) 0.8 (0.0-1.0) 10^3/uL Eos # (Auto) 0.0 (0.0-0.7) 10^3/uL Baso # (Auto) 0.0 (0.0-0.1) 10^3/uL Absolute Nucleated RBC 0.00 x10^3/uL Nucleated RBC % 0.0 /100WBC Sodium 138 (135-145) mmol/L Potassium 3.9 (3.5-5.0) mmol/L Chloride 100 L (101-111) mmol/L Carbon Dioxide 28 (21-32) mmol/L Anion Gap 10.0 (6-13) BUN 20 (6-20) mg/dL Creatinine 1.1 (0.6-1.2) mg/dL Estimated GFR (MDRD) 67 L (>89) Glucose 141 H (70-100) mg/dL Calcium 8.8 (8.5-10.3) mg/dL Magnesium 2.0 (1.7-2.8) mg/dL Albumin 3.6 (3.2-5.5) g/dL Assessment/Plan - Problem List (1) Gastroparesis diabeticorum Impression: This gentleman developed diabetes in 1990 and is a type 1.5 being treated as a type I. He has been noncompliant with medications, use of recreational substances such as cannabis, diet, etc. Whereas his symptoms used to be mild, they have gotten progressively worse over the last few months. In reading his chart notes from his primary care provider he has received extensive instruction in how to manage himself but he really has been noncompliant with that. Glucose continues to be consistently elevated and his hemoglobin A1c is 9% with this admission. He is miserable with this. He is telling me that he is come to the conclusion that he probably has to stop using marijuana to see if that is the causative agent. We will IM happy at that news, I did tell him that only time will tell. He really needs to stay off cannabis for months at a time before you can link the 2 (gastroparesis and cannabis). He really needs to modify his diet and I have given him the algorithm from up-to-date in the management of gastroparesis. If he continues to get worse, he may need to have frequent JG tube feedings. He also needs to get his diabetes under control. And he needs to take Reglan and Zofran regularly. At this time we are just awaiting his current episode to improve. He was on clear liquids yesterday and today and can barely tolerate just keeping juice down. He describes an episode where he had "spasm of his diaphragm" and he could not breathe. That is why he came into the hospital. I also gave him another option for treatment, and that would be a gastric pacer. His primary care provider would need to refer him to gastroenterology who would then find the appropriate specialist in [place]. He knows that his gastroparesis sx can last 4-5 days until he gets relief and can handle food and liquids We restarted the scheduled Reglan We do not have a baseline gastric emptying study and will order for tomorrow. he moved to the [place] 05/2018 and not admitted until beginning of 2019. 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 We did order PT but he is ambulating w/o assist so I will dc that order. (3) KI (acute kidney injury) Assessment/Plan: resolved. BAck to baseline 1.1 creatinine since 03/29 (4) Hx of coronary artery disease Assessment/Plan: When he was hospitalized in the spring 2019 here at this hospital, he had an elevated troponin level associated with his DKA episode. Echocardiogram was unremarkable. He was started on carvedilol, losartan and had amlodipine added because of hypertension. He was also supposed to be on aspirin and of atorvast atin. He was referred to Cardiology and with that visit with cardiology he did explain that he is not always compliant with these medications because of cost, convenience and is getting to the store. He was seen by Dr. Dax Rivers at [facility]. He underwent a elective left heart cath September 08, 2019. He had a left ventricular end-diastolic pressure of 12 to 15 mmHg.. No significant aortic valve gradient. Ejection fraction was 65% without wall motion abnormalities. The left main was large without stenosis. The LAD coursed around the apex and had a 95% tubular stenosis. His first diagonal was large with luminal irregularities. His circumflex was large with luminal irregularities. The first obtuse marginal was small medium size with luminal irregularities. The second and third obtuse marginals were also medium to large with luminal irregularities. The right coronary artery was large, dominant, 50% stenosis distally. The right PDA and the right PLS were large vessels with luminal irregularities. He underwent a successful PCI of the LAD using a 4 x 20 Synergy WILLIS with 0% residual stenosis. He was discharged on aspirin, Plavix. (5) Afib Qualifiers: Atrial fibrillation type: paroxysmal Qualified Code(s): I48.0 - Paroxysmal atrial fibrillation Assessment/Plan: His essential meds are given by iv or sq (6) Cannabis misuse Assessment/Plan: Previously advised to stop using marijuana. Advised again today. (7) DKA (diabetic ketoacidosis) resolved. Qualifiers: Diabetes mellitus type: due to underlying condition Diabetes mellitus complication detail: without coma Qualified Code(s): E08.10 - Diabetes me llitus due to underlying condition with ketoacidosis without coma Assessment/Plan: Resolved
[2021-04-01] MEDS: SODIUM CHLORIDE FLUSH 0.9% 10 ML SYRINGE IVP PRN ×2 (17:23→22:15)
[2021-04-01] MEDS: INSULIN GLARGINE 300 UNIT/3 ML PEN SUBQ SCH (22:21)
[2021-04-01] MEDS ORDERED: LIDOCAINE PATCH 5% TOP PRN (22:31)
[2021-04-02] MEDS ORDERED: hydrALAZINE INJ 20 MG/ML VIAL IVP PRN (00:08)
[2021-04-02] MEDS: LABETALOL 20 MG/4 ML SYRINGE IVP PRN (00:16)
[2021-04-02] MEDS: SODIUM CHLORIDE FLUSH 0.9% 10 ML SYRINGE IVP SCH ×3 (00:17→21:16)
[2021-04-02 06:34] LABS: BASOPHILS % (AUTO) 0.2 %; EOSINOPHILS % (AUTO) 0.5 %; HCT - HEMATOCRIT 39.3 % (42.0-52.0); HGB - HEMOGLOBIN 13.5 g/dL (14.0-18.0); LYMPHOCYTES # (AUTO) 0.8 10^3/uL (1.5-3.5); LYMPHOCYTES % (AUTO) 14.4 %; MEAN CORPUSCULAR HGB CONC 34.4 g/dL (32.0-36.0); MEAN CORPUSCULAR VOLUME 90.1 fL (80.0-94.0); MEAN PLATELET VOLUME 10.2 fL (7.4-11.4); MONOCYTES # (AUTO) 0.7 10^3/uL (0.0-1.0); MONOCYTES % (AUTO) 12.9 %; NEUTROPHILS % (AUTO) 71.6 %; PLT - PLATELET COUNT 189 10^3/uL (130-450); RED BLOOD COUNT 4.36 10^6/uL (4.70-6.10); RED CELL DISTRIBUTION WIDTH 12.6 % (12.0-15.0); WHITE BLOOD COUNT 5.6 x10^3/uL (4.8-10.8)
[2021-04-02] MEDS: ONDANSETRON 4 MG/2 ML VIAL IVP PRN ×2 (06:44→13:57)
[2021-04-02 06:48] LABS: CALCIUM 8.4 mg/dL (8.5-10.3); CREATININE 1.1 mg/dL (0.6-1.2); POTASSIUM 4.1 mmol/L (3.5-5.0)
[2021-04-02] MEDS: INSULIN ASPART 300 UNIT/3 ML PEN SUBQ SCH ×4 (08:42→21:15)
[2021-04-02] MEDS: FAMOTIDINE 20 MG/2 ML VIAL IVP SCH ×2 (08:43→21:16)
[2021-04-02] MEDS: ENOXAPARIN 100 MG/ML SYRINGE SUBQ SCH ×2 (08:43→21:16)
--- NOTE | 2021-04-02 12:54 | PROVIDER PROGRESS NOTE ---
Subjective - Prog Note Date Prog Note Date: 04/02/21 Prog Note Time: 12:52 - Subjective Pt reports feeling: No change Subjective: Still with emesis this morning. Wonders how long the gastric emptying studies can take. Otherwise no new complaints. Current Medications - Current Medications Current Medications: Active Medications Enoxaparin Sodium (Enoxaparin 100 Mg/Ml Syringe) 100 mg SUBQ BID [facility] Last Admin: 04/02/21 08:43 Dose: 100 mg Documented by: Famotidine (Famotidine 20 Mg/2 Ml Vial) 20 mg IVP BID [facility] Last Admin: 04/02/21 08:43 Dose: 20 mg Documented by: Hydralazine HCl (Hydralazine Inj 20 Mg/Ml Vial) 10 mg IVP Q6H PRN PRN Reason: PER PHYSICIAN ORDER Insulin Aspart (Insulin Aspart 300 Unit/3 Ml Pen) 1 - 9 unit SUBQ 0800,1200,1700,2100 [facility]; Protocol Last Admin: 04/02/21 08:42 Dose: 5 unit Documented by: Insulin Glargine (Insulin Glargine 300 Unit/3 Ml Pen) 30 unit SUBQ QPM [facility] Last Admin: 04/01/21 22:21 Dose: 30 unit Documented by: Labetalol HCl (Labetalol 20 Mg/4 Ml Syringe) 10 mg IVP Q6H PRN PRN Reason: PER PHYSICIAN ORDER Last Admin: 04/02/21 00:16 Dose: 10 mg Documented by: Lidocaine (Lidocaine Patch 5%) 1 patch TOP DAILY PRN PRN Reason: PAIN Metoclopramide HCl (Metoclopramide 10 Mg Tablet) 10 mg PO TID PRN PRN Reason: Nausea / Vomiting Last Admin: 04/01/21 16:28 Dose: 10 mg Documented by: Ondansetron HCl (Ondansetron 4 Mg/2 Ml Vial) 4 mg IVP Q6HR PRN PRN Reason: Nausea / Vomiting Last Admin: 04/02/21 06:44 Dose: 4 mg Documented by: Prochlorperazine Edisylate (Prochlorperazine 10 Mg/2 Ml Vial) 10 mg IVP Q6HR PRN PRN Reason: Nausea / Vomiting Last Admin: 04/01/21 22:14 Dose: 10 mg Documented by: Sodium Chloride (Sodium Chloride Flush 0.9% 10 Ml Syringe) 10 ml IVP 0100,0900,1700 [facility] Last Admin: 04/02/21 08:43 Dose: 10 ml Documented by: Sodium Chloride (Sodium Chloride Flush 0.9% 10 Ml Syringe) 10 ml IVP PRN PRN PRN Reason: NEEDED PER PROVIDER ORDERS Last Admin: 04/01/21 22:15 Dose: 10 ml Documented by: Tamsulosin HCl (Tamsulosin 0.4 Mg Capsule) 0.4 mg PO DAILY [facility] Last Admin: 04/01/21 09:35 Dose: 0.4 mg Documented by: Tamsulosin [Flomax] 0.4 mg PO DAILY 06/09/19 Metoclopramide [Reglan] 10 mg PO TID PRN 12/07/19 Ondansetron Odt [Zofran Odt] 4 mg PO Q6H PRN 05/29/20 Apixaban [Eliquis] 5 mg PO BID 01/24/21 Omeprazole 40 mg PO DAILY 01/24/21 Insulin Aspart [Novolog Flexpen] 5 - 8 unit SQ TIDWM 02/24/21 Insulin Glargine [Lantus Solostar] 70 units SUBQ QPM 02/24/21 Objective - Vital Signs/Intake & Output Reviewed Vital Signs: Yes Vital Signs: Vital Signs x48h Temp Pulse Pulse Resp BP Pulse Ox 04/02/21 08:39 36.8 C 98 16 154/88 H 98 04/02/21 04:57 36.6 C 85 17 148/88 H 97 Intake & Output: Intake & Output 03/30/21 03/31/21 04/01/21 04/02/21 23:59 23:59 23:59 23:59 Intake Total 2796.666 2396.667 200 0 Output Total 1825 1225 200 Balance 885.898 4600.667 0 0 - Objective General Appearance: positive: No acute distress, Alert Eyes Bilateral: positive: PERRL, EOMI ENT: positive: No signs of dehydration Neck: positive: No JVD. negative: Stiff neck Respiratory: positive: No respiratory distress. negative: Wheezes, Rales, Rhonchi Cardiovascular: positive: Regular rate & rhythm. negative: Gallop/S4, Friction rub Abdomen: positive: Non-tender, No organomegaly, Nml bowel sounds, No distention Skin: positive: Warm, Dry Extremities: positive: Full ROM, No pedal edema Neurologic/Psychiatric: positive: Oriented x3, CN's nml (2-12), Motor nml - Lab Results Fish Bones: 04/02/21 06:00 04/02/21 06:00 Other Labs: Lab Results x24hrs 04/02/21 04/02/21 Range/Units 06:00 06:00 WBC 5.6 (4.8-10.8) x10^3/uL RBC 4.36 L (4.70-6.10) 10^6/uL Hgb 13.5 L (14.0-18.0) g/dL Hct 39.3 L (42.0-52.0) % MCV 90.1 (80.0-94.0) fL MCH 31.0 (27.0-31.0) pg MCHC 34.4 (32.0-36.0) g/dL RDW 12.6 (12.0-15.0) % Plt Count 189 (130-450) 10^3/uL MPV 10.2 (7.4-11.4) fL Neut # (Auto) 4.0 (1.5-6.6) 10^3/uL Lymph # (Auto) 0.8 L (1.5-3.5) 10^3/uL [place] # (Auto) 0.7 (0.0-1.0) 10^3/uL Eos # (Auto) 0.0 (0.0-0.7) 10^3/uL Baso # (Auto) 0.0 (0.0-0.1) 10^3/uL Absolute Nucleated RBC 0.00 x10^3/uL Nucleated RBC % 0.0 /100WBC Sodium 134 L (135-145) mmol/L Potassium 4.1 (3.5-5.0) mmol/L Chloride 100 L (101-111) mmol/L Carbon Dioxide 25 (21-32) mmol/L Anion Gap 9.0 (6-13) BUN 22 H (6-20) mg/dL Creatinine 1.1 (0.6-1.2) mg/dL Estimated GFR (MDRD) 67 L (>89) Glucose 224 H (70-100) mg/dL Calcium 8.4 L (8.5-10.3) mg/dL Assessment/Plan - Problem List (1) Gastroparesis diabeticorum Impression: This gentleman developed diabetes in 1990 and is a type 1.5 being treated as a type I. He has been noncompliant with medications, use of recreational substances such as cannabis, diet, etc. Whereas his symptoms used to be mild, they have gotten progressively worse over the last few months. In reading his chart notes from his primary care provider he has received extensive instruction in how to manage himself but he really has been noncompliant with that. Glucose continues to be consistently elevated and his hemoglobin A1c is 9% with this admission. He is miserable with this. He is telling me that he is come to the conclusion that he probably has to stop using marijuana to see if that is the causative agent. We will IM happy at that news, I did tell him that only time will tell. He really needs to stay off cannabis for months at a time before you can link the 2 (gastroparesis and cannabis). He really needs to modify his diet and I have given him the algorithm from up-to-date in the management of gastroparesis. If he continues to get worse, he may need to have frequent JG tube feedings. He also needs to get his diabetes under control. And he needs to take Reglan and Zofran regularly. At this time we are just awaiting his current episode to improve. He was on clear liquids yesterday and today and can barely tolerate just keeping juice down. He describes an episode where he had "spasm of his diaphragm" and he could not breathe. That is why he came into the hospital. I also gave him another option for treatment, and that would be a gastric pacer. His primary care provider would need to refer him to gastroenterology who would then find the appropriate specialist in [place]. He knows that his gastroparesis sx can last 4-5 days until he gets relief and can handle food and liquids We restarted the scheduled Reglan. Even as of this morning, the patient is still having emesis. With clear liquids.He is on as needed Reglan. I do worry about extraparametal manifestations of a put him on regular Reglan for too long I have ordered a gastric emptying study. That is currently ongoing. He has a 1:15 PM and a 2:15 PM film follow-up. I will review those results and give those to the patient. We will also try and advance his diet again. 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 We did order PT but he is ambulating w/o assist so I will dc that order. (3) KI (acute kidney injury) Assessment/Plan: resolved. Back to baseline 1.1 creatinine since 03/29 (4) Hx of coronary artery disease Assessment/Plan: When he was hospitalized in the spring 2019 here at this hospital, he had an elevated troponin level associated with his DKA episode. Echocardiogram was unremarkable. He was started on carvedilol, losartan and had amlodipine added because of hypertension. He was also supposed to be on aspirin and of a torvastatin. He was referred to Cardiology and with that visit with cardiology he did explain that he is not always compliant with these medications because of cost, convenience and is getting to the store. He was seen by Dr. Dax Rivers at [facility]. He underwent a elective left heart cath September 08, 2019. He had a left ventricular end-diastolic pressure of 12 to 15 mmHg.. No significant aortic valve gradient. Ejection fraction was 65% without wall motion abnormalities. The left main was large without stenosis. The LAD coursed around the apex and had a 95% tubular stenosis. His first diagonal was large with luminal irregularities. His circumflex was large with luminal irregularities. The first obtuse marginal was small medium size with luminal irregularities. The second and third obtuse marginals were also medium to large with luminal irregularities. The right coronary artery was large, dominant, 50% stenosis distally. The right PDA and the right PLS were large vessels with luminal irregularities. He underwent a successful PCI of the LAD using a 4 x 20 Synergy WILLIS with 0% residual stenosis. He was discharged on aspirin, Plavix. (5) Afib Qualifiers: Atrial fibrillation type: paroxysmal Qualified Code(s): I48.0 - Paroxysmal atrial fibrillation Assessment/Plan: His essential meds are given by iv or sq (6) Cannabis misuse Assessment/Plan: Previously advised to stop using marijuana. Advised again by me 04/01/2021 (7) DKA (diabetic ketoacidosis) resolved. Qualifiers: Diabetes mellitus type: due to underlying condition Diabetes mellitus complication detail: without coma Qualified Code(s): E08.10 - Diabetes mellitus due to underlying condition with ketoacidosis without coma Assessment/Plan: Resolved
[2021-04-02] MEDS: METOCLOPRAMIDE 10 MG TABLET PO PRN (15:54)
[2021-04-02] MEDS: TAMSULOSIN 0.4 MG CAPSULE PO SCH (15:54)
--- NOTE | 2021-04-02 20:07 | Nuclear Medicine Report ---
PROCEDURE: Gastric Empty Small Bowel INDICATIONS: gastroparesis RADIOPHARMACEUTICAL: 1.07 mCi Tc-99m sulfur colloid in an egg sandwich. TECHNIQUE: A Tc-99m labeled sulfur colloid labeled egg sandwich or oatmeal was served to the patient. Anterior and posterior planar images of the abdomen were obtained at 0 minutes and 30 minutes, then at hourly intervals up to 4 hours. The patient was upright and ambulating during the interval. COMPARISON: None available. FINDINGS: The stomach has normal size, morphology, and position. There is normal emptying of solid gastric con tents from the stomach by visual inspection. No gastroesophageal reflux is visualized. The percentage of tracer retained at specific time points are as follows: Time pointPercent gastric retentionNormal range 30 xdecuwd73.370% or more 1 hour62.130% to 90% 2 hours16.360% or less 3 hours5.530% or less 4 hours4.010% or less IMPRESSION: Normal gastric emptying without visualized gastroparesis. Reviewed by: Lona Chan MD on 04/02/2021 8:06 PM [facility] Approved by: Lona Chan MD on 04/02/2021 8:06 PM PST Station ID: [id number]
[2021-04-02] MEDS: INSULIN GLARGINE 300 UNIT/3 ML PEN SUBQ SCH (21:15)
[2021-04-03] MEDS: PROCHLORPERAZINE 10 MG/2 ML VIAL IVP PRN (00:11)
[2021-04-03] MEDS: SODIUM CHLORIDE FLUSH 0.9% 10 ML SYRINGE IVP SCH ×2 (00:11→08:35)
[2021-04-03] MEDS: SODIUM CHLORIDE FLUSH 0.9% 10 ML SYRINGE IVP PRN (00:11)
[2021-04-03] MEDS: ONDANSETRON 4 MG/2 ML VIAL IVP PRN (03:59)
[2021-04-03] MEDS: METOCLOPRAMIDE 10 MG TABLET PO PRN (06:34)
[2021-04-03] MEDS: TAMSULOSIN 0.4 MG CAPSULE PO SCH (08:33)
[2021-04-03] MEDS: INSULIN ASPART 300 UNIT/3 ML PEN SUBQ SCH ×2 (08:34→11:30)
[2021-04-03] MEDS: ENOXAPARIN 100 MG/ML SYRINGE SUBQ SCH (08:34)
[2021-04-03] MEDS: FAMOTIDINE 20 MG/2 ML VIAL IVP SCH (08:35)
--- NOTE | 2021-04-03 12:08 | Discharge Plan ---
Discharge Plan Problem Reviewed?: Yes Disposition: 01 Home, Self Care Condition: Stable Diet: Diabetic Activity Restrictions: Activity as Tolerated Shower Restrictions: No Driving Restrictions: No Health Concerns: That it is recurrent abdominal pain with nausea and vomiting. These episodes are frequent in your life for over the last 2 years and are getting worse. We did a study to make sure you do not have gastroparesis and your nuclear medicine gastric emptying study is completely normal. 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 You have indicated that you think you will be stopping this. You are now taking food by mouth, keeping it down, and want to go home. Plan of Treatment: 1. Please follow-up with your primary care provider to make sure that your glucose stays in balance. With this current hospitalization your A1c was greater than 9% and asked that you are uncontrolled. 2. Please follow-up with the diabetic education center. You are interested in continuous glucose monitoring to help you to control your glucose. You were also interested in diabetic education classes. 3. Please stop smoking marijuana. Completely. Not even a little. Care Goals: To remain out of the hospital. No further episodes of cyclical vomiting. To also get his glucose under control with a possible pump and continuous glucose monitor Assessment: Patient is very self-aware with regards to his body. He dictates when he can be admitted or leave. He wishes to leave at this time because he feels stable. Follow-Up Care: [facility] [place] - Diabetes Ed No Smoking: If you smoke, Please STOP! Call for help. Follow-up with: Provider,Other [Primary Care Provider] -
[2021-04-03 12:18] VITALS: BP 159/94
--- NOTE | 2021-04-03 12:27 | DISCHARGE SUMMARY ---
Discharge Summary Admit Date: 03/28/21 Discharge Date: 04/03/21 Discharging Provider: Cristina Geller MD Primary Care Provider: Luis Logan MD Code Status: Attempt Resuscitation Condition at Discharge: Stable Discharge Disposition: 01 Home, Self Care - DIAGNOSES Discharge Diagnoses with Status of Each Condition: 1. Cyclical vomiting syndrome. 2. 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 Uncontrolled with hyperglycemia, and complications. 3. Acute kidney injury. 4. History of coronary artery disease with stenting 5. Chronic atrial fibrillation 6. Chronic cannabis misuse 7. DKA, type I, resolved - HPI History of Present Illness: This is a 65-year-old white male with a history of type 1 diabetes, diabetic gastroparesis, Hx of CAD, paroxysmal A. fib on Eliquis, has frequent admissions for DKA exacerbations, some possibly related to marijuana use that gives him cyclical nausea and vomiting. Patient states that 2 days ago he started to have nausea and vomiting and could not keep any food or liquids down. He says it was "set off by having cold liquids". He has had no fever or diarrhea. He denied SOB or chest pain. He has a "ingrown hair of his powell" which is caused right lower lip swelling. 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 His CODE STATUS is Full Code. - Past Medical History Cardiovascular: reports: Hypertension, High cholesterol, [place], Atrial fibrillation Respiratory: reports: None Neuro: reports: Cerebral palsy, Peripheral neuropathy, Other Endocrine/Autoimmune: reports: Type 2 diabetes GI: reports: GERD, Other (Gastroparesis) : reports: Benign prostate hypertrophy HEENT: reports: Chronic vision loss, Other Psych: reports: Claustrophobia Musculoskeletal: reports: Osteoarthritis Derm: reports: None MRSA Hx?: No - Past Surgical History General: reports: Appendectomy Ortho: reports: Amputation, Other Cardiovascular: reports: Other - CONSULTS | PROCEDURES Procedures: 2 chest x-rays. One was done for assessing PICC line placement. There were no infiltrates. No acute cardiopulmonary changes. Central line was in place appro priately without pneumothorax. Gastric emptying nuclear medicine study showed a stomach that had normal size, morphology, and position. There was normal emptying of solid gastric contents from the stomach by visual inspection. No gastroesophageal reflux noted. The percentage of tracer retained at specific time points were as follows: 30 minutes, 93% or more 1 hour, 62 to 90% 2 hours 16% or less 3 Hours 5.5% or less 4 hours for percent or less Hemoglobin A1c 9.2% - HOSPITAL COURSE Hospital Course: The patient is well-known to our service for frequent episodes of nausea, vomiting, abdominal pain associated with DKA. He was placed in the ICU where he had small amount of ketones and a glucose of 900. He was placed on insulin drip with DKA protocol and quickly recovered. From 950 in the morning until 20 2:05 PM in the evening his glucose went from 900-61. Anion gap gradually closed. Acute kidney injury improved. He was transitioned to food and sliding scale insulin as well as long-acting insulin. His continued problem was that of nausea, vomiting, and intermittent abdominal pain. It took him several days to even tolerate clear liquids. He has a previous history of chronic cannabis abuse. He has been advised to stop doing it because it may be contributing to cyclical vomiting syndrome or diabetic gastroparesis. In reviewing the chart he had not had a nuclear medicine study to document the severity of his gastroparesis. Nuclear medicine study was done and surprisingly showed no gastroparesis whatsoever. As such we think that his cyclical vomiting is associated with DKA and or cannabis use. He was advised 1 more time to please stop using cannabis permanently. The patient is in the midst of trying to establish himself with a public health educator here at our hospital. He would like to do continuous glucose monitoring and be evaluated for a pump. He is working with his primary care provider to make that referral happen. On the day of discharge he was still not tolerating much by mouth. But he was insistent that he would like to go home. He had eaten about 25% of her low-carb meal. Temperature at discharge was 37.1. Heart rate 90. Blood pressure 159/94. Respirations 18. 96% on room air. He is a 6 foot 2 inch tall white male with a weight of 102 kg. He is bearded, disheveled, occasionally low hoarse voice. Neck is supple with shotty adenopathy. Lungs are clear to auscultation and percussion. PMI is normally placed. Regular rate and rhythm. The abdomen is soft, nontender, nondistended with normal bowel sounds. Last bowel movement was March 31. Extremities are warm, no edema. Speech is nor mal, sentence structure intact, able to ambulate in the room without any assistance. Greater than 30 minutes was spent coordinating discharge. - ALLERGIES Allergies/Adverse Reactions: Allergies Allergy/AdvReac Type Severity Reaction Status Date / Time No Known Drug Allergies Allergy Verified 03/28/21 13:49 - MEDICATIONS Home Medications: Ambulatory Orders Medication Instructions Recorded Confirmed Tamsulosin [Flomax] 0.4 mg PO DAILY 06/09/19 03/28/21 Metoclopramide [Reglan] 10 mg PO TID PRN 12/07/19 03/28/21 Ondansetron Odt [Zofran Odt] 4 mg PO Q6H PRN 05/29/20 03/28/21 Apixaban [Eliquis] 5 mg PO BID 01/24/21 03/28/21 Omeprazole 40 mg PO DAILY 01/24/21 03/28/21 Insulin Aspart [Novolog Flexpen] 5 - 8 unit SQ TIDWM 02/24/21 03/28/21 Insulin Glargine [Lantus Solostar] 70 units SUBQ QPM 02/24/21 03/28/21 - LABS Result Diagrams: 04/02/21 06:00 04/02/21 06:00
== END 2021-04-03 12:50 | disposition home or self-care (01) | DRG 638 ==
LOC: ED 09:16 → ICU 14:07 → MS2 03-31 18:54
PROVIDERS: ADMIT Internal Medicine; ATTEND Specialist
DX: E11.10 Type 2 diabetes mellitus with ketoacidosis without coma (principal); E13.10 Other specified diabetes mellitus with ketoacidosis without coma; F12.20 Cannabis dependence, uncomplicated; R11.2 Nausea with vomiting, unspecified; E11.43 Type 2 diabetes mellitus with diabetic autonomic (poly)neuropathy; N17.9 Acute kidney failure, unspecified; Z79.4 Long term (current) use of insulin; E86.0 Dehydration; I48.91 Unspecified atrial fibrillation; Z20.822 Contact with and (suspected) exposure to COVID-19; E11.42 Type 2 diabetes mellitus with diabetic polyneuropathy; E13.43 Other specified diabetes mellitus with diabetic autonomic (poly)neuropathy; E13.42 Other specified diabetes mellitus with diabetic polyneuropathy; K31.84 Gastroparesis; G80.9 Cerebral palsy, unspecified; N40.0 Benign prostatic hyperplasia without lower urinary tract symptoms; I10 Essential (primary) hypertension; E78.00 Pure hypercholesterolemia, unspecified; R11.15 Cyclical vomiting syndrome unrelated to migraine; I25.10 Atherosclerotic heart disease of native coronary artery without angina pectoris; I48.0 Paroxysmal atrial fibrillation; Z79.01 Long term (current) use of anticoagulants; L73.1 Pseudofolliculitis barbae; I25.2 Old myocardial infarction; K21.9 Gastro-esophageal reflux disease without esophagitis; Z91.14 Patient's other noncompliance with medication regimen
CPT/HCPCS: 36415; 36569; 71045; 78265; 80048; 80053; 80306; 81001; 82009; 82040; 82330; 82803; 83036; 83690; 83735; 84100; 84478; 85025; 87150; 87631; 96365; 96375; 97161; 99285; A9270; C1751; G0480; J1200; J1650; J1815; J7040; 0202U; 80320; 81003; 82947; 87086

== ENCOUNTER 2021-05-27 11:33 | Outpatient (CLI) | payer MEDICARE, OTHER ==
[2021-05-27 15:32] LABS: BASOPHILS # (AUTO) 0.1 10^3/uL (0.0-0.1); BASOPHILS % (AUTO) 1.2 %; EOSINOPHILS # (AUTO) 0.1 10^3/uL (0.0-0.7); EOSINOPHILS % (AUTO) 3.2 %; HCT - HEMATOCRIT 38.6 % (42.0-52.0); HGB - HEMOGLOBIN 13.2 g/dL (14.0-18.0); LYMPHOCYTES # (AUTO) 1.2 10^3/uL (1.5-3.5); LYMPHOCYTES % (AUTO) 29.2 %; MEAN CORPUSCULAR HEMOGLOBIN 31.7 pg (27.0-31.0); MEAN CORPUSCULAR HGB CONC 34.2 g/dL (32.0-36.0); MEAN CORPUSCULAR VOLUME 92.8 fL (80.0-94.0); MEAN PLATELET VOLUME 10.1 fL (7.4-11.4); MONOCYTES # (AUTO) 0.5 10^3/uL (0.0-1.0); MONOCYTES % (AUTO) 13.2 %; NEUTROPHILS # (AUTO) 2.2 10^3/uL (1.5-6.6); PLT - PLATELET COUNT 234 10^3/uL (130-450); RED BLOOD COUNT 4.16 10^6/uL (4.70-6.10); RED CELL DISTRIBUTION WIDTH 13.3 % (12.0-15.0); WHITE BLOOD COUNT 4.1 x10^3/uL (4.8-10.8)
[2021-05-27 15:43] LABS: ALBUMIN 4.2 g/dL (3.2-5.5); ALBUMIN/GLOBULIN RATIO 1.7 (1.0-2.2); BILIRUBIN,TOTAL 0.6 mg/dL (0.2-1.0); CALCIUM 9.2 mg/dL (8.5-10.3); CREATININE 1.1 mg/dL (0.6-1.2); POTASSIUM 4.1 mmol/L (3.5-5.0); TOTAL PROTEIN 6.7 g/dL (6.7-8.2)
[2021-05-27 20:02] LABS: ESTIMATED AVERAGE GLUCOSE 163 mg/dL (70-100); HEMOGLOBIN A1c% 7.3 % (4.27-6.07)
== END 2021-05-27 11:34 | disposition home or self-care (01) ==
LOC: LAB.S 11:33
PROVIDERS: ATTEND Internal Medicine
DX: E11.9 Type 2 diabetes mellitus without complications (principal); Z79.899 Other long term (current) drug therapy; Z12.5 Encounter for screening for malignant neoplasm of prostate
CPT/HCPCS: 36415; 80053; 83036; 85025; G0103; 84153

== ENCOUNTER 2021-07-30 13:36 | Emergency (ER) | payer MEDICARE, OTHER ==
--- NOTE | 2021-07-30 14:23 | ED Physician Documentation ---
History of Present Illness - Stated complaint Stated Complaint: L FOOT INF,PX - Chief complaint Chief Complaint: Ext Problem - History obtained from History obtained from: Patient - History of Present Illness Pain level max: 7 Pain level now: 4 - Additonal information Additional information: Patient is a 65-year-old male who presents to the emergency department stating that he was out mowing the yard yesterday, today noticed a crack on the bottom of his left heel and erythema around the heel itself. He noticed a blood blister as well. He states he went to the walk-in clinic today who referred him here for potential IV antibiotics. He states he had a temperature of 100.5 there, but did not feel febrile. No cough. No congestion. 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 Worse with movement, better with rest. He states that he had did have pain that traveled up his leg to his groin earlier today. Did not have any redness or streaking up the back of the leg or into the groin. Review of Systems Ten Systems: 10 systems reviewed and negative Constitutional: denies: Fever, Chills Respiratory: denies: Cough GI: denies: Nausea, Vomiting Skin: denies: Rash Musculoskeletal: denies: Neck pain, Back pain Neurologic: denies: Headache PD PAST MEDICAL HISTORY - Past Medical History Cardiovascular: Hypertension, High cholesterol, ND, Atrial fibrillation Respiratory: None Neuro: Cerebral palsy, Peripheral neuropathy, Other Endocrine/Autoimmune: Type 2 diabetes GI: GERD, Other (Gastroparesis) : Benign prostate hypertrophy HEENT: Chronic vision loss, Other Psych: Claustrophobia Musculoskeletal: Osteoarthritis Derm: None - Past Surgical History Past Surgical History: Yes General: Appendectomy Ortho: Amputation, Other Cardiovascular: Other - Present Medications Home Medications: Ambulatory Orders Medication Instructions Recorded Confirmed Tamsulosin [Flomax] 0.4 mg PO DAILY 06/09/19 03/28/21 Metoclopramide [Reglan] 10 mg PO TID PRN 12/07/19 03/28/21 Ondansetron Odt [Zofran Odt] 4 mg PO Q6H PRN 05/29/20 03/28/21 Apixaban [Eliquis] 5 mg PO BID 01/24/21 03/28/21 Omeprazole 40 mg PO DAILY 01/24/21 03/28/21 Insulin Aspart [Novolog Flexpen] 5 - 8 unit SQ TIDWM 02/24/21 03/28/21 Insulin Glargine [Lantus Solostar] 70 units SUBQ QPM 02/24/21 03/28/21 HYDROcod/ACETAM 5/325 [Alton 5/325] 1 - 2 ea PO Q6H PRN #14 tablet 07/30/21 clindamycin HCL [Cleocin HCl] 300 mg PO Q6H #40 cap 07/30/21 - Allergies Allergies/Adverse Reactions: Allergies Allergy/AdvReac Type Severity Reaction Status Date / Time No Known Drug Allergies Allergy Verified 07/30/21 13:50 - Social History Does the pt smoke?: Yes Smoking Status: Never smoker Does the pt drink ETOH?: No Does the pt have substance abuse?: Yes - Immunizations Immunizations are current?: Yes - POLST Patient has POLST: No POLST Status: Full Code PD ED PE NORMAL - Vitals Vital signs reviewed: Yes - General General: Alert and oriented X 3, No acute distress - HEENT HEENT: Moist mucous membranes - Neck Neck: Supple, no meningeal sign - Cardiac Cardiac: RRR, Strong equal pulses - Respiratory Respiratory: No respiratory distress, Clear bilaterally - Abdomen Abdomen: Soft, Non tender, Non distended - Derm Derm: Warm and dry - Extremities Extremities: Other - Neuro Neuro: Alert and oriented X 3 - Psych Psych: Normal mood, Normal affect - Free text exam Free text exam: Left heel shows a hemorrhagic blister to the posterior left heel. This is about 2 cm in size. Nonruptured. There is surrounding erythema approximately 4 cm in all directions. There is no streaking up the leg. There is no calf tenderness or cord. No edema. Neurovascularly intact. There is also a skin crack approximately 2 cm in length to the plantar aspect of the heel. No active bleeding. Otherwise normal examination of the left lower extremity. Results - Vitals Vitals: Vital Signs - 24 hr 07/30/21 07/30/21 13:45 15:56 Temperature 37.2 C Heart Rate 100 87 Respiratory 16 16 Rate Blood Pressure 133/73 H 114/72 O2 Saturation 100 98 Oxygen O2 Source Room air - Labs Labs: Laboratory Tests 07/30/21 07/30/21 07/30/21 14:38 14:38 14:38 WBC 11.9 H RBC 4.71 Hgb 14.2 Hct 42.1 MCV 89.4 MCH 30.1 MCHC 33.7 RDW 13.4 Plt Count 222 MPV 10.4 Neut # (Auto) 10.3 H Lymph # (Auto) 0.6 L Kern # (Auto) 1.0 Eos # (Auto) 0.0 Baso # (Auto) 0.0 Absolute Nucleated RBC 0.00 Nucleated RBC % 0.0 ESR 18 Sodium 135 Potassium 4.4 Chloride 99 L Carbon Dioxide 24 Anion Gap 12.0 BUN 28 H Creatinine 1.7 H Estimated GFR (MDRD) 41 L Glucose 310 H Lactic Acid Calcium 9.6 Total Bilirubin 1.6 H AST 16 ALT 19 Alkaline Phosphatase 69 C-Reactive Protein 12.9 H Total Protein 7.4 Albumin 4.2 Globulin 3.2 Albumin/Globulin Ratio 1.3 07/30/21 14:38 WBC RBC Hgb Hct MCV MCH MCHC RDW Plt Count MPV Neut # (Auto) Lymph # (Auto) Kern # (Auto) Eos # (Auto) Baso # (Auto) Absolute Nucleated RBC Nucleated RBC % ESR Sodium Potassium Chloride Carbon Dioxide Anion Gap BUN Creatinine Estimated GFR (MDRD) Glucose Lactic Acid 1.4 Calcium Total Bilirubin AST ALT Alkaline Phosphatase C-Reactive Protein Total Protein Albumin Globulin Albumin/Globulin Ratio - Rads (name of study) L foot xray Radiology: Final report received, EMP read contemporaneously, See rad report (no acute abnormality) PD MEDICAL DECISION MAKING - ED course Complexity details: reviewed results, re-evaluated patient, considered differential, d/w patient ED course: Patient is well-appearing, nontoxic. Afebrile. Minimal leukocytosis. Normal sed rate, mildly elevated CRP. Given a dose of IV Rocephin here. Will place on oral antibiotics for home and have him monitor closely at home. If he fails outpatient antibiotics, would likely require IV antibiotics. No evidence of sepsis. The blood blister to the left heel was left intact. It is not tense. No evidence of infection in the blister itself. Patient counseled regarding signs and symptoms for which I believe and urgent re-evaluation would be necessary. Patient with good understanding of and agreement to plan and is comfortable going home at this time This document was made in part using voice recognition software. While efforts are made to proofread this document, sound alike and grammatical errors may occur. Wounds were cleansed and bandaged. Departure - Departure Disposition: 01 Home, Self Care Clinical Impression: Cellulitis Qualifiers: Site of cellulitis: extremity Site of cellulitis of extremity: lower extremity Laterality: left Qualified Code(s): L03.116 - Cellulitis of left lower limb Blister of left heel Qualifiers: Encounter type: initial encounter Qualified Code(s): S90.822A - Blister (nonthermal), left foot, initial encounter Condition: Good Instructions: ED Infec Skin Cellulitis Follow-Up: Lena Kirkland ARNP [Primary Care Provider] - Within 1 week Prescriptions: clindamycin HCL [Cleocin HCl] 300 mg PO Q6H #40 cap HYDROcod/ACETAM 5/325 [Alton 5/325] 1 - 2 ea PO Q6H PRN #14 tablet PRN Reason: Pain Comments: Your prescriptions were sent to the [facility] pharmacy. Take all antibiotics until gone. You should start to notice an improvement in the next 24 to 48 hours. Return if you worsen including fevers, redness going up the leg, or other new or worrisome symptoms. I am prescribing a short course of narcotic pain medication for you. These are potentially dangerous and addictive medications that should be used carefully. These medications may constipate you. Take an [id number] stool softener (docusate) twice daily with plenty of water while taking these medications. If you go 24 hours without a bowel movement, take [id number] miralax, per package instructions. Do not drink or drive while taking these medications. If you received narcotic or sedating medications while in the emergency department, do not drive for 24 hours. Store this medication in a safe, secure place and out of reach of children. It is a violation of federal law to give or sell this medication to another person or to use in a manner other than prescribed. The ED will not refill narcotic prescriptions, including prescriptions lost or stolen. To dispose of unwanted medications: 1. [facility] at [address] in [place] has a medication drop box. They accept prescription medications (in pill form) Wednesday through Wednesday 9:00 a.m. to 5:00 p.m. 2. The [facility] [employer] accepts prescription medications (in pill form only) for disposal year round. Call for more information. 3. Contact the [facility] for the next [facility] sponsored prescription drug collection event. , [phone], or [phone]; Discharge Date/Time: 07/30/21 16:09
[2021-07-30 14:47] LABS: BASOPHILS % (AUTO) 0.2 %; HCT - HEMATOCRIT 42.1 % (42.0-52.0); HGB - HEMOGLOBIN 14.2 g/dL (14.0-18.0); LYMPHOCYTES # (AUTO) 0.6 10^3/uL (1.5-3.5); LYMPHOCYTES % (AUTO) 5.3 %; MEAN CORPUSCULAR HEMOGLOBIN 30.1 pg (27.0-31.0); MEAN CORPUSCULAR HGB CONC 33.7 g/dL (32.0-36.0); MEAN CORPUSCULAR VOLUME 89.4 fL (80.0-94.0); MEAN PLATELET VOLUME 10.4 fL (7.4-11.4); MONOCYTES % (AUTO) 8.3 %; NEUTROPHILS # (AUTO) 10.3 10^3/uL (1.5-6.6); NEUTROPHILS % (AUTO) 85.9 %; PLT - PLATELET COUNT 222 10^3/uL (130-450); RED BLOOD COUNT 4.71 10^6/uL (4.70-6.10); RED CELL DISTRIBUTION WIDTH 13.4 % (12.0-15.0); WHITE BLOOD COUNT 11.9 x10^3/uL (4.8-10.8)
--- NOTE | 2021-07-30 14:49 | XRAY Report ---
PROCEDURE: Foot 3 View LT INDICATIONS: L heel redness, swelling, pain TECHNIQUE: 3 views of the foot were acquired. COMPARISON: 01/29/2020. FINDINGS: Bones: Patient status post amputation of the fifth digit and partial amputation of the fifth metatar ting. No fractures or dislocations. No suspicious bony lesions. No osseous erosive changes. No perios teal reaction. Dorsal calcaneal bone spur noted. Soft tissues: No tibiotalar joint effusion. Achilles tendon appears normal. No soft tissue gas. IMPRESSION: No faizan evidence of osteomyelitis. Please note plain-film radiographs can be insensitive to changes of osteomyelitis in the initial 15 days of the disease. If there is continued clinical concern for os teomyelitis, consider three-phase nuclear medicine bone scan or MRI for additional evaluation. Reviewed by: Eufemia Davidson MD, PhD on 07/30/2021 2:48 PM PDT Approved by: Eufemia Davidson MD, PhD on 07/30/2021 2:48 PM PDT Station ID: [id number]
[2021-07-30] MEDS ORDERED: cefTRIAXone 1 GM VIAL IVP STA (15:11)
[2021-07-30 15:19] LABS: ALBUMIN 4.2 g/dL (3.2-5.5); ALBUMIN/GLOBULIN RATIO 1.3 (1.0-2.2); BILIRUBIN,TOTAL 1.6 mg/dL (0.2-1.0); CALCIUM 9.6 mg/dL (8.5-10.3); CREATININE 1.7 mg/dL (0.6-1.2); CRP - C-REACTIVE PROTEIN 12.9 mg/dL (0-1.0); POTASSIUM 4.4 mmol/L (3.5-5.0); TOTAL PROTEIN 7.4 g/dL (6.7-8.2)
[2021-07-30 15:56] VITALS: BP 114/72
== END 2021-07-30 16:09 | disposition home or self-care (01) ==
LOC: ED 13:36
DX: S90.822A Blister (nonthermal), left foot, initial encounter (principal); X58.XXXA Exposure to other specified factors, initial encounter; L03.116 Cellulitis of left lower limb; E11.42 Type 2 diabetes mellitus with diabetic polyneuropathy; Z79.4 Long term (current) use of insulin; I48.91 Unspecified atrial fibrillation; Z79.01 Long term (current) use of anticoagulants
CPT/HCPCS: 36415; 80053; 83605; 85025; 85651; 86140; 87040; 96374; 99284

== ENCOUNTER 2021-09-16 08:00 | Outpatient (CLI) | payer MEDICARE, OTHER | END 2021-09-16 23:59 | disposition home or self-care (01) | LOC: LAB.R 08:00 | PROVIDERS: ATTEND Podiatrist | DX: E11.622 Type 2 diabetes mellitus with other skin ulcer (principal) | CPT/HCPCS: 87070; 87181; 87205 ==

== ENCOUNTER 2021-11-26 11:21 | Outpatient (CLI) | payer MEDICARE, OTHER ==
[2021-11-26 14:17] LABS: CALCIUM 9.2 mg/dL (8.5-10.3); CREATININE 1.1 mg/dL (0.6-1.2); POTASSIUM 4.5 mmol/L (3.5-5.0)
[2021-11-26 14:21] LABS: ESTIMATED AVERAGE GLUCOSE 154 mg/dL (70-100)
== END 2021-11-26 11:22 | disposition home or self-care (01) ==
LOC: LAB.S 11:21
PROVIDERS: ATTEND Internal Medicine
DX: E11.40 Type 2 diabetes mellitus with diabetic neuropathy, unspecified (principal)
CPT/HCPCS: 36415; 80048; 83036

== ENCOUNTER 2022-03-30 11:02 | Emergency (ER) | payer MEDICARE, OTHER ==
[2022-03-30 11:37] LABS: BASOPHILS % (AUTO) 0.5 %; EOSINOPHILS # (AUTO) 0.1 10^3/uL (0.0-0.7); EOSINOPHILS % (AUTO) 3.1 %; HCT - HEMATOCRIT 46.5 % (42.0-52.0); HGB - HEMOGLOBIN 15.3 g/dL (14.0-18.0); LYMPHOCYTES # (AUTO) 0.8 10^3/uL (1.5-3.5); LYMPHOCYTES % (AUTO) 18.5 %; MEAN CORPUSCULAR HEMOGLOBIN 29.8 pg (27.0-31.0); MEAN CORPUSCULAR HGB CONC 32.9 g/dL (32.0-36.0); MEAN CORPUSCULAR VOLUME 90.5 fL (80.0-94.0); MEAN PLATELET VOLUME 9.8 fL (7.4-11.4); MONOCYTES # (AUTO) 0.4 10^3/uL (0.0-1.0); MONOCYTES % (AUTO) 8.9 %; NEUTROPHILS # (AUTO) 2.9 10^3/uL (1.5-6.6); NEUTROPHILS % (AUTO) 68.8 %; PLT - PLATELET COUNT 194 10^3/uL (130-450); RED BLOOD COUNT 5.14 10^6/uL (4.70-6.10); RED CELL DISTRIBUTION WIDTH 13.8 % (12.0-15.0); WHITE BLOOD COUNT 4.2 x10^3/uL (4.8-10.8)
--- NOTE | 2022-03-30 11:49 | XRAY Report ---
PROCEDURE: Foot 3 View RT INDICATIONS: Foot infection TECHNIQUE: 3 views of the foot were acquired. COMPARISON: No pertinent prior. FINDINGS: Soft tissue ulcer at the lateral foot with no subjacent bone. Nearest bone demonstrates no finding of erosive lesion. No acute bone finding elsewhere. IMPRESSION: No findings of osteomyelitis. Reviewed by: Marquis Ramirez MD on 03/30/2022 11:48 AM [facility] Approved by: Marquis Ramirez MD on 03/30/2022 11:48 AM [facility] Station ID: [id number]
[2022-03-30 11:55] LABS: CALCIUM 8.8 mg/dL (8.5-10.3)
--- OUTSIDE RECORDS SUMMARY | 2022-03-30 11:59 | EXTERNAL MEDICAL SUMMARY RPT | Continuity of Care Document ---
:1955 Author Organization [facility] Address [address] [place] [address] Phone Care Team Providers Name Role Phone Unavailable Unavailable Unavailable Lena Rivera Unavailable Unavailable Allergies No information. Encounters No information. Functional Status No information. Immunizations No information. Medications date description facility 2022-01-15 00:00 insulin lispro [facility] 2022-03-30 00:00 insulin lispro [facility] 2022-01-15 00:00 insulin lispro [facility] 2022-03-30 00:00 insulin lispro [facility] 2022-01-15 00:00 insulin lispro [facility] 2022-03-30 00:00 insulin lispro [facility] 2022-01-15 00:00 insulin lispro [facility] 2022-03-30 00:00 insulin lispro [facility] Problems No information. Procedures No information. Results/Labs test date author facility value unit interpret ation Result panel 1 (unknown) (no date) (unknown) [facility] (no value) (units [facility]) [facility] Result panel 2 (unknown) (no date) (unknown) [facility] (no value) (units ([facility]) [facility] Result panel 3 (unknown) (no date) (unknown) [facility] (no value) (units ([facility] Primary unknown) [facility] Result panel 4 (unknown) (no date) (unknown) [facility] (no value) (units ([facility] Clinic Primary unknown) [facility] Result panel 5 (unknown) (no date) (unknown) [facility] (no value) (units ([facility]) [facility] Primary unknown) [facility] Result panel 6 (unknown) (no date) (unknown) [facility] (no value) (units ([facility] Primary unknown) [facility] Result panel 7 (unknown) (no date) (unknown) [facility] (no value) (units ([facility]own) Clinic Primary unknown) [facility] Result panel 8 (unknown) (no date) (unknown) [facility] (no value) (units ([facility]) Clinic Primary unknown) [facility] Result panel 9 (unknown) (no date) (unknown) [facility] (no value) (units ([facility]own) Clinic Primary unknown) [facility] Result panel 10 (unknown) (no date) (unknown) Walk-[facility] (no value) (units ([facility]own) Clinic Primary unknown) [facility] Result panel 11 (unknown) (no date) (unknown) [facility] (no value) (units ([facility] nown) Clinic Primary unknown) [facility] Result panel 12 (unknown) (no date) (unknown) Walk-[facility] (no value) (units ([facility] nown) Clinic Primary unknown) [facility] Result panel 13 (unknown) (no date) (unknown) Walk-[facility] (no value) (units ([facility] nown) Clinic Primary unknown) [facility] Result panel 14 (unknown) (no date) (unknown) Walk-[facility] (no value) (units ([facility] nown) Clinic Primary unknown) [facility] Result panel 15 (unknown) (no date) (unknown) Walk-[facility] (no value) (units ([facility] nown) Clinic Primary unknown) [facility] Social History No information. Vital Signs No information.
[2022-03-30] MEDS ORDERED: SULFAMETH/TRIMETH DS 800/160 MG TABLET PO STA (12:44)
[2022-03-30] MEDS ORDERED: cephALEXin 250 MG CAPSULE PO STA (12:44)
--- NOTE | 2022-03-30 12:47 | ED Physician Documentation ---
History of Present Illness - Stated complaint Stated Complaint: R FOOT ULCER - Chief complaint Chief Complaint: Wound - History obtained from History obtained from: Patient - History of Present Illness Timing: Chronic Pain level max: 0 Pain level now: 0 - Additonal information Additional information: 66-year-old male presents to the emergency department with right foot callus that has been present for the past several weeks. 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 He states that they told him to come here for evaluation, debridement and possible antibiotics. No fevers. No chills. Patient has very little feeling left in the foot. He has had 2 toes amputated in the past. Review of Systems Constitutional: denies: Fever, Chills Ears: denies: Ear pain Respiratory: denies: Cough GI: denies: Nausea, Vomiting, Diarrhea Skin: denies: Rash Musculoskeletal: denies: Neck pain, Back pain PD PAST MEDICAL HISTORY - Past Medical History Past Medical History: Yes Cardiovascular: Hypertension, High cholesterol, [place], Atrial fibrillation Respiratory: None Neuro: Cerebral palsy, Peripheral neuropathy, Other Endocrine/Autoimmune: Type 2 diabetes GI: GERD, Other : Benign prostate hypertrophy HEENT: Chronic vision loss, Other Psych: Claustrophobia Musculoskeletal: Osteoarthritis Derm: None - Past Surgical History Past Surgical History: Yes General: Appendectomy Ortho: Amputation, Other Cardiovascular: Other - Present Medications Home Medications: Ambulatory Orders Medication Instructions Recorded Confirmed Tamsulosin [Flomax] 0.4 mg PO DAILY 06/09/19 03/28/21 Metoclopramide [Reglan] 10 mg PO TID PRN 12/07/19 03/28/21 Ondansetron Odt [Zofran Odt] 4 mg PO Q6H PRN 05/29/20 03/28/21 Apixaban [Eliquis] 5 mg PO BID 01/24/21 03/28/21 Omeprazole 40 mg PO DAILY 01/24/21 03/28/21 Insulin Aspart [Novolog Flexpen] 5 - 8 unit SQ TIDWM 02/24/21 03/28/21 Insulin Glargine [Lantus Solostar] 70 units SUBQ QPM 02/24/21 03/28/21 HYDROcod/ACETAM 5/325 [[place] 5/325] 1 - 2 ea PO Q6H PRN #14 tablet 07/30/21 clindamycin HCL [Cleocin HCl] 300 mg PO Q6H #40 cap 07/30/21 Sulfamethox/Trimeth 800/160 1 each PO BID #20 tablet 03/30/22 [Bactrim Ds 800/160] cephALEXin [Keflex] 500 mg PO Q6H #40 cap 03/30/22 - Allergies Allergies/Adverse Reactions: Allergies Allergy/AdvReac Type Severity Reaction Status Date / Time No Known Drug Allergies Allergy Verified 03/30/22 11:18 - Social History Does the pt smoke?: Yes Smoking Status: Current every day smoker Does the pt drink ETOH?: No Does the pt have substance abuse?: Yes - Immunizations Immunizations are current?: Yes - POLST Patient has POLST: No POLST Status: Full Code PD ED PE NORMAL - Vitals Vital signs reviewed: Yes - General General: Alert and oriented X 3, No acute distress - HEENT HEENT: Moist mucous membranes - Derm Derm: Warm and dry - Extremities Extremities: Other (Right foot - Calluses buildup on the lateral aspect of the right foot on plantar aspects near the fourth and fifth toe amputations. No drainage. No purulence. Decree sensation throughout the foot.) - Neuro Neuro: Alert and oriented X 3 - Psych Psych: Normal mood, Normal affect Results - Vitals Vitals: Vital Signs - 24 hr 03/30/22 03/30/22 11:15 12:57 Temperature 36.9 C 36.6 C Heart Rate 83 80 Respiratory 20 16 Rate Blood Pressure 213/120 H 185/101 H O2 Saturation 98 98 Oxygen O2 Source Room air - Labs Labs: Laboratory Tests 03/30/22 03/30/22 03/30/22 11:28 11:28 11:28 WBC 4.2 L RBC 5.14 Hgb 15.3 Hct 46.5 MCV 90.5 MCH 29.8 MCHC 32.9 RDW 13.8 Plt Count 194 MPV 9.8 Neut # (Auto) 2.9 Lymph # (Auto) 0.8 L [place] # (Auto) 0.4 Eos # (Auto) 0.1 Baso # (Auto) 0.0 Absolute Nucleated RBC 0.00 Nucleated RBC % 0.0 ESR 6 Sodium 136 Potassium 4.0 Chloride 103 Carbon Dioxide 24 Anion Gap 9.0 BUN 24 H Creatinine 1.0 Estimated GFR (MDRD) 75 L Glucose 173 H Lactic Acid Calcium 8.8 C-Reactive Protein 1.0 03/30/22 11:28 WBC RBC Hgb Hct MCV MCH MCHC RDW Plt Count MPV Neut # (Auto) Lymph # (Auto) [place] # (Auto) Eos # (Auto) Baso # (Auto) Absolute Nucleated RBC Nucleated RBC % ESR Sodium Potassium Chloride Carbon Dioxide Anion Gap BUN Creatinine Estimated GFR (MDRD) Glucose Lactic Acid 1.2 Calcium C-Reactive Protein - Rads (name of study) Right foot xray Radiology: Final report received, See rad report Procedures - General procedure General procedure: The right foot was debrided. A #11 blade was used to remove the devitalized tissue down to a vitalized wound base. There is no drainage. There is no purulence. There is a small amount of soft tissue breakdown underneath the hard skin that was removed. PD Medical Decision Making - ED course Complexity details: reviewed results, re-evaluated patient, considered differential, d/w patient ED course: The wound was debrided. Tolerated well. No complications. Will place on antibiotics. His sed rate and CRP are normal. His white blood cell count is mildly low. The remainder of his laboratory testing is normal. The right foot does not show any signs of osteomyelitis on x-ray. We will have him follow-up with his doctor for referral to wound care. Patient counseled regarding signs and symptoms for which I believe and urgent re-evaluation would be necessary. Patient with good understanding of and agreement to plan and is comfortable going home at this time This document was made in part using voice recognition software. While efforts are made to proofread this document, sound alike and grammatical errors may occur. Departure - Departure Disposition: 01 Home, Self Care Clinical Impression: Diabetic foot ulcer Qualifiers: Diabetic foot ulcer location: unspecified part of foot Diabetes mellitus type: type 2 Laterality: right Non-pressure ulcer stage: limited to breakdown of skin Qualified Code(s): E11.621 - Type 2 diabetes mellitus with foot ulcer Condition: Good Instructions: ED Foot Care Diabetic Follow-Up: Lena Kirkland ARNP [Primary Care Provider] - Within 1 week Prescriptions: Sulfamethox/Trimeth 800/160 [Bactrim Ds 800/160] 1 each PO BID #20 tablet cephALEXin [Keflex] 500 mg PO Q6H #40 cap Comments: Your prescriptions were sent to [facility] in [place] Please take all antibiotics until gone. Please follow-up with your doctor for further care. You will likely need another referral to wound care. Keep the wound clean. Return if you worsen Discharge Date/Time: 03/30/22 12:59
[2022-03-30 13:01] VITALS: BP 185/101
== END 2022-03-30 12:59 | disposition home or self-care (01) ==
LOC: ED 11:02
DX: E11.621 Type 2 diabetes mellitus with foot ulcer (principal); Z79.4 Long term (current) use of insulin; I10 Essential (primary) hypertension; I48.91 Unspecified atrial fibrillation; Z79.01 Long term (current) use of anticoagulants; F17.200 Nicotine dependence, unspecified, uncomplicated
CPT/HCPCS: 36415; 73630; 80048; 83605; 85025; 85651; 86140; 87040; 97597; 99283; 99284; A9270

== ENCOUNTER 2022-08-21 09:42 | Outpatient (CLI) | payer MEDICARE ==
[2022-08-21 15:45] LABS: ALBUMIN 4.1 g/dL (3.2-5.5); ALBUMIN/GLOBULIN RATIO 1.4 (1.0-2.2); BILIRUBIN,TOTAL 0.8 mg/dL (0.2-1.0); CALCIUM 8.8 mg/dL (8.5-10.3); CHOL/HDL RATIO 3.8 (<5.0); CHOLESTEROL 180 mg/dL; CREATININE 1.2 mg/dL (0.6-1.2); HDL CHOLESTEROL 47 mg/dL; LDL CHOLESTEROL,CALCULATED 112 mg/dL; LDL/HDL RATIO 2.4 (<3.6); POTASSIUM 4.3 mmol/L (3.5-5.0); TRIGLYCERIDES 104 mg/dL; VLDL CHOLESTEROL 21 mg/dL
[2022-08-21 20:38] LABS: ESTIMATED AVERAGE GLUCOSE 157 mg/dL (70-100); HEMOGLOBIN A1c% 7.1 % (4.27-6.07)
== END 2022-08-21 09:43 | disposition home or self-care (01) ==
LOC: LAB.S 09:42
PROVIDERS: ATTEND Internal Medicine
DX: E10.9 Type 1 diabetes mellitus without complications (principal)
CPT/HCPCS: 36415; 80053; 80061; 82043; 82570; 83036; 83721

== ENCOUNTER 2022-10-27 16:46 | Outpatient (CLI) | payer MEDICARE ==
--- NOTE | 2022-10-28 11:28 | XRAY Report ---
PROCEDURE: Lumbar Spine Complete INDICATIONS: LEG LENGTH DISCREPANCY,HIP ARTHRALGIA TECHNIQUE: 5 views of the lumbar spine were acquired. COMPARISON: None. FINDINGS: Bones: 5 [id number] vertebrae are present. There is normal bony alignment. No vertebral body compression fractures. No suspicious bony lesions. Multilevel disc space narrowing and degenerative endplate changes are seen. There is multilevel facet hypertrophy. Soft tissues: Overlying bowel gas pattern is normal. No suspicious soft tissue calcifications. Aor tic atherosclerotic calcifications are present. Oblique views: No pars defects. IMPRESSION: Moderate multilevel spondylosis. Reviewed by: Uziel Gatica MD on 10/28/2022 11:26 AM PDT Approved by: Uziel Gatica MD on 10/28/2022 11:26 AM PDT Station ID: [id number]
--- NOTE | 2022-10-30 15:24 | XRAY Report ---
PROCEDURE: Hip w/Pelvis 2-3V RT INDICATIONS: LEG LENGTH DISCREPANCY,HIP ARTHRALGIA TECHNIQUE: AP pelvis with lateral view(s) of the right hip(s). COMPARISON: None. FINDINGS: Bones: No fractures or dislocations. No suspicious bony lesions. Mild symmetric axial hip joint s pace narrowing with mild periarticular osteophyte formation. Degenerative disc and facet disease invo lving the inferior lumbar spine. Soft tissues: No suspicious soft tissue calcifications or masses. IMPRESSION: Mild symmetric hip joint degeneration. Reviewed by: HUMBERTO Pedro on 10/28/2022 8:32 AM PDT Approved by: Paula Nick MD on 10/28/2022 8:32 AM PDT Station ID: [id number]
--- NOTE | 2022-10-30 15:24 | XRAY Report ---
PROCEDURE: Foot 2 View RT INDICATIONS: LEG LENGTH DISCREPANCY,HIP ARTHRALGIA TECHNIQUE: 2 views of the foot were acquired. COMPARISON: Prior foot series dated 03/30/2022. FINDINGS: Bones: Pes planus alignment. No fractures or dislocations. No suspicious bony lesions. Prior amput ation of the fifth digit from the proximal fifth metatarsal level. No advanced osteomyelitis is seen. Background osteophytic changes. Surgical anchors again seen within the mid foot. Soft tissues: No suspicious soft tissue calcifications or masses. Lateral soft tissue swelling adj acent to the fourth metatarsal head. Vascular calcifications are present. IMPRESSION: No findings of osteomyelitis. If acute osteomyelitis is of clinical concern, consider MRI for further assessment. Reviewed by: HUMBERTO Pedro on 10/28/2022 8:37 AM PDT Approved by: Paula Nick MD on 10/28/2022 8:37 AM PDT Station ID: [id number]
--- NOTE | 2022-10-30 15:24 | XRAY Report ---
PROCEDURE: Femur 2V RT INDICATIONS: LEG LENGTH DISCREPANCY,HIP ARTHRALGIA TECHNIQUE: 2 views of the femur were acquired. COMPARISON: None. FINDINGS: Bones: No fractures or dislocations. No suspicious bony lesions. Moderate hip joint space narrowi ng with periarticular osteophyte formation. Mild medial and lateral femorotibial joint space narrowin g with periarticular osteophyte formation. Soft tissues: No suspicious soft tissue calcifications or masses. Vascular calcifications are pres ent. IMPRESSION: Moderate hip and mild knee joint degeneration. Reviewed by: HUMBERTO Pedro on 10/28/2022 8:35 AM PDT Approved by: Paula Nick MD on 10/28/2022 8:35 AM PDT Station ID: [id number]
== END 2022-10-27 16:47 | disposition home or self-care (01) ==
LOC: DI.S 16:46
PROVIDERS: ATTEND Internal Medicine
DX: M47.816 Spondylosis without myelopathy or radiculopathy, lumbar region (principal); M16.0 Bilateral primary osteoarthritis of hip; M51.36 Other intervertebral disc degeneration, lumbar region; M17.11 Unilateral primary osteoarthritis, right knee; M21.70 Unequal limb length (acquired), unspecified site

== ENCOUNTER 2022-11-16 08:00 | Outpatient (CLI) | payer MEDICARE | END 2022-11-16 23:59 | disposition home or self-care (01) | LOC: LAB 08:00 | PROVIDERS: ATTEND Podiatrist | DX: E11.622 Type 2 diabetes mellitus with other skin ulcer (principal) | CPT/HCPCS: 87070; 87077; 87181; 87205 ==

== ENCOUNTER 2023-02-20 08:00 | Outpatient (CLI) | payer MEDICARE ==
--- NOTE | 2023-02-20 14:40 | XRAY Report ---
PROCEDURE: Hip w/Pelvis 2-3V RT INDICATIONS: RIGHT HIP PAIN TECHNIQUE: AP pelvis with lateral view(s) of the right hip(s). COMPARISON: 10/27/2022. FINDINGS: Bones: No fractures or dislocations. Right worse than left bilateral hip joint osteoarthritis is see n. No evidence of avascular necrosis of femoral head. No suspicious bony lesions. Soft tissues: No suspicious soft tissue calcifications or masses. IMPRESSION: No acute bony abnormality. Right worse than left bilateral hip joint osteoarthritis. No evidence of avascular necrosis. Reviewed by: Marcelino Alberts MD on 02/20/2023 2:39 PM PST Approved by: Marcelino Alberts MD on 02/20/2023 2:39 PM PST Station ID: [id number]
--- NOTE | 2023-02-20 14:41 | XRAY Report ---
PROCEDURE: Lumbar Spine 2 View INDICATIONS: LOW BACK PAIN/SACRAL PAIN TECHNIQUE: 3 views of the lumbar spine were acquired. COMPARISON: 10/27/2022. FINDINGS: Bones: 5 [id number] vertebrae are present. There is normal bony alignment. Loss of disc heigh t, degenerative endplate changes and bilateral facet arthrosis throughout lumbar spine is seen more n otably at L3-4 and L4-5 levels. No vertebral body compression fractures. No suspicious bony lesions. Soft tissues: Overlying bowel gas pattern is normal. No suspicious soft tissue calcifications. IMPRESSION: No acute compression fracture or spondylolisthesis in lumbar spine. Degenerative disc di sease throughout lumbar spine as above. Reviewed by: Marcelino Alberts MD on 02/20/2023 2:40 PM PST Approved by: Marcelino Alberts MD on 02/20/2023 2:40 PM PST Station ID: [id number]
== END 2023-02-20 23:59 | disposition home or self-care (01) ==
LOC: DI.S 08:00
PROVIDERS: ATTEND Physician Assistant Medical
DX: S30.0XXA Contusion of lower back and pelvis, initial encounter (principal); S70.01XA Contusion of right hip, initial encounter; M51.36 Other intervertebral disc degeneration, lumbar region; M47.816 Spondylosis without myelopathy or radiculopathy, lumbar region; M16.0 Bilateral primary osteoarthritis of hip

== ENCOUNTER 2023-03-10 08:42 | Outpatient (CLI) | payer MEDICARE ==
[2023-03-10 14:37] LABS: EOSINOPHILS # (AUTO) 0.2 10^3/uL (0.0-0.7); EOSINOPHILS % (AUTO) 3.6 %; HGB - HEMOGLOBIN 16.3 g/dL (14.0-18.0); LYMPHOCYTES # (AUTO) 1.3 10^3/uL (1.5-3.5); LYMPHOCYTES % (AUTO) 29.8 %; MEAN CORPUSCULAR HEMOGLOBIN 31.7 pg (27.0-31.0); MEAN CORPUSCULAR VOLUME 93.2 fL (80.0-94.0); MEAN PLATELET VOLUME 10.5 fL (7.4-11.4); MONOCYTES # (AUTO) 0.4 10^3/uL (0.0-1.0); MONOCYTES % (AUTO) 9.1 %; NEUTROPHILS # (AUTO) 2.4 10^3/uL (1.5-6.6); NEUTROPHILS % (AUTO) 56.3 %; PLT - PLATELET COUNT 209 10^3/uL (130-450); RED BLOOD COUNT 5.15 10^6/uL (4.70-6.10); RED CELL DISTRIBUTION WIDTH 12.9 % (12.0-15.0); WHITE BLOOD COUNT 4.2 x10^3/uL (4.8-10.8)
[2023-03-10 14:53] LABS: ALBUMIN 4.5 g/dL (3.2-5.5); ALBUMIN/GLOBULIN RATIO 1.7 (1.0-2.2); ALKALINE PHOSPHATASE 82 IU/L (42-121); ALT ALANINE AMINOTRANSFERASE 16 IU/L (10-60); AST ASPARTATE AMINOTRANSFERASE 13 IU/L (10-42); BILIRUBIN,TOTAL 0.5 mg/dL (0.2-1.0); BUN - BLOOD UREA NITROGEN 27 mg/dL (6-20); CALCIUM 9.4 mg/dL (8.5-10.3); CARBON DIOXIDE - CO2 26 mmol/L (21-32); CHLORIDE 106 mmol/L (101-111); CHOL/HDL RATIO 4.7 (<5.0); CHOLESTEROL 215 mg/dL; CREATININE 1.3 mg/dL (0.6-1.3); GFR - MDRD 55 (>89); GLUCOSE 167 mg/dL (74-104); HDL CHOLESTEROL 46 mg/dL; LDL CHOLESTEROL,CALCULATED 134 mg/dL; LDL/HDL RATIO 2.9 (<3.6); POTASSIUM 4.1 mmol/L (3.5-4.5); SODIUM 138 mmol/L (135-145); TOTAL PROTEIN 7.2 g/dL (6.4-8.9); TRIGLYCERIDES 175 mg/dL (48-352); VLDL CHOLESTEROL 35 mg/dL
[2023-03-10 19:50] LABS: ESTIMATED AVERAGE GLUCOSE 169 mg/dL (70-100); HEMOGLOBIN A1c% 7.5 % (4.27-6.07)
== END 2023-03-10 08:43 | disposition home or self-care (01) ==
LOC: LAB.S 08:42
PROVIDERS: ATTEND Internal Medicine
DX: I10 Essential (primary) hypertension (principal); E11.3513 Type 2 diabetes mellitus with proliferative diabetic retinopathy with macular edema, bilateral; N40.0 Benign prostatic hyperplasia without lower urinary tract symptoms
CPT/HCPCS: 36415; 80053; 80061; 82043; 82570; 83036; 83721; 84153; 85025

== ENCOUNTER 2023-04-12 10:18 | Emergency (ER) | payer MEDICARE ==
[2023-04-12 11:16] LABS: EOSINOPHILS # (AUTO) 0.1 10^3/uL (0.0-0.7); EOSINOPHILS % (AUTO) 2.6 %; HCT - HEMATOCRIT 46.2 % (42.0-52.0); HGB - HEMOGLOBIN 15.3 g/dL (14.0-18.0); LYMPHOCYTES # (AUTO) 0.8 10^3/uL (1.5-3.5); MEAN CORPUSCULAR HEMOGLOBIN 30.8 pg (27.0-31.0); MEAN CORPUSCULAR HGB CONC 33.1 g/dL (32.0-36.0); MEAN PLATELET VOLUME 9.8 fL (7.4-11.4); MONOCYTES # (AUTO) 0.3 10^3/uL (0.0-1.0); MONOCYTES % (AUTO) 8.2 %; NEUTROPHILS # (AUTO) 2.9 10^3/uL (1.5-6.6); NEUTROPHILS % (AUTO) 70.2 %; PLT - PLATELET COUNT 240 10^3/uL (130-450); RED BLOOD COUNT 4.97 10^6/uL (4.70-6.10); RED CELL DISTRIBUTION WIDTH 12.7 % (12.0-15.0); WHITE BLOOD COUNT 4.2 x10^3/uL (4.8-10.8)
[2023-04-12 11:49] LABS: ALBUMIN 3.9 g/dL (3.2-5.5); ALBUMIN/GLOBULIN RATIO 1.6 (1.0-2.2); ALKALINE PHOSPHATASE 91 IU/L (42-121); ALT ALANINE AMINOTRANSFERASE 12 IU/L (10-60); AST ASPARTATE AMINOTRANSFERASE 13 IU/L (10-42); BILIRUBIN,TOTAL 0.4 mg/dL (0.2-1.0); BUN - BLOOD UREA NITROGEN 21 mg/dL (6-20); CALCIUM 9.1 mg/dL (8.5-10.3); CARBON DIOXIDE - CO2 29 mmol/L (21-32); CHLORIDE 103 mmol/L (101-111); CREATININE 1.1 mg/dL (0.6-1.3); CRP - C-REACTIVE PROTEIN 0.5 mg/dL (<0.5); GFR - MDRD 67 (>89); GLUCOSE 248 mg/dL (74-104); POTASSIUM 4.5 mmol/L (3.5-4.5); SODIUM 137 mmol/L (135-145); TOTAL PROTEIN 6.3 g/dL (6.4-8.9)
--- NOTE | 2023-04-12 11:52 | ED Physician Documentation ---
PD HPI WOUND RECHECK - Stated complaint Stated Complaint: LT FOOT PX/WOUND - Chief complaint Chief Complaint: Wound - Histroy obtained from History obtained from: Patient - History of Present Illness Location: Right Foot Timing - onset: How many weeks ago (3) Associated symptoms: Redness, Swelling, Pain Similar symptoms before: Diagnosis (infected diabetic ulcer) Recently seen: Not recently seen - Additional information Additional information: Edie Cueva is a 67-year-old male with a history of type 2 diabetes and he has had previous toe amputations to the right foot. He has an ulcer to the bottom of the right foot that has progressed. He is now getting some blood each time he changes his socks and he is come to the emergency department for evaluation and treatment. He has had prior debridement done in the emergency department and is wanting to have debridement done today. He is wanting to be treated for infection as well. Review of Systems Constitutional: denies: Fever, Chills, Myalgias Respiratory: denies: Cough GI: denies: Vomiting, Diarrhea PD PAST MEDICAL HISTORY - Past Medical History Past Medical History: Yes Cardiovascular: Hypertension, High cholesterol, [place], Atrial fibrillation Respiratory: None Neuro: Cerebral palsy, Peripheral neuropathy, Other Endocrine/Autoimmune: Type 2 diabetes GI: GERD, Other : Benign prostate hypertrophy HEENT: Chronic vision loss, Other Psych: Claustrophobia Musculoskeletal: Osteoarthritis Derm: None - Past Surgical History Past Surgical History: Yes General: Appendectomy Ortho: Amputation, Other Cardiovascular: Other - Present Medications Home Medications: Ambulatory Orders Medication Instructions Recorded Confirmed Tamsulosin [Flomax] 0.4 mg PO DAILY 06/09/19 04/12/23 Ondansetron Odt [Zofran Odt] 4 mg PO Q6H PRN 05/29/20 04/12/23 Apixaban [Eliquis] 5 mg PO BID 01/24/21 04/12/23 Omeprazole 40 mg PO DAILY 01/24/21 04/12/23 Insulin Aspart [Novolog Flexpen] 5 - 8 unit SQ TIDWM 02/24/21 04/12/23 Insulin Glargine [Lantus Solostar] 70 units SUBQ QPM 02/24/21 04/12/23 HYDROcod/ACETAM 5/325 [[place] 5/325] 1 - 2 tablet PO Q6H PRN #14 tablet 04/12/23 Losartan [Cozaar] 1 tab PO DAILY 04/12/23 04/12/23 Sulfamethox/Trimeth 800/160 1 each PO BID #14 tablet 04/12/23 [Bactrim Ds] amLODIPine [Norvasc] 1 tab PO DAILY 04/12/23 04/12/23 cephALEXin [Keflex] 500 mg PO Q6H #28 cap 04/12/23 methocarbamoL [Methocarbamol] 1 tab PO DAILY 04/12/23 04/12/23 traMADol [Ultram] 1 tab PO DAILY 04/12/23 04/12/23 - Allergies Allergies/Adverse Reactions: Allergies Allergy/AdvReac Type Severity Reaction Status Date / Time No Known Drug Allergies Allergy Verified 04/12/23 10:25 - Social History Does the pt smoke?: Yes Smoking Status: Current every day smoker Does the pt drink ETOH?: No Does the pt have substance abuse?: Yes - Immunizations Immunizations are current?: Yes - POLST Patient has POLST: No POLST Status: Full Code PD ED PE NORMAL - Vitals Vital signs reviewed: Yes (hypertensive ) - General General: Alert and oriented X 3, No acute distress, Well developed/nourished - HEENT HEENT: Atraumatic, PERRL, EOMI - Respiratory Respiratory: No respiratory distress - Derm Derm: Normal color, Warm and dry, No rash - Extremities Extremities: Other (To the bottom of the right foot there are 2 ulcers 1 is very superficial the other 1 is deeper and covered with a thick callus. The superficial ulcer is cultured. 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 ) Eye Opening: Spontaneous Motor: Obeys Commands Verbal: Oriented GCS Score: 15 - Psych Psych: Normal mood, Normal affect Results - Vitals Vitals: Vital Signs - 24 hr 04/12/23 04/12/23 04/12/23 10:22 10:46 12:22 Temperature 36.4 C L Heart Rate 87 80 Respiratory 16 16 Rate Blood Pressure 195/100 H 200/108 H 187/116 H O2 Saturation 96 98 Oxygen O2 Source Room air - Labs Labs: Microbiology 04/12/23 11:05 Wound Culture - Preliminary Foot - Right Laboratory Tests 04/12/23 04/12/23 04/12/23 11:09 11:09 11:09 WBC 4.2 L RBC 4.97 Hgb 15.3 Hct 46.2 MCV 93.0 MCH 30.8 MCHC 33.1 RDW 12.7 Plt Count 240 MPV 9.8 Neut # (Auto) 2.9 Lymph # (Auto) 0.8 L [place] # (Auto) 0.3 Eos # (Auto) 0.1 Baso # (Auto) 0.0 Absolute Nucleated RBC 0.00 Nucleated RBC % 0.0 ESR 6 Sodium 137 Potassium 4.5 Chloride 103 Carbon Dioxide 29 Anion Gap 5.0 L BUN 21 H Creatinine 1.1 Estimated GFR (MDRD) 67 L Glucose 248 H Calcium 9.1 Total Bilirubin 0.4 AST 13 ALT 12 Alkaline Phosphatase 91 C-Reactive Protein 0.5 Total Protein 6.3 L Albumin 3.9 Globulin 2.4 Albumin/Globulin Ratio 1.6 Lipase < 10 L - Rads (name of study) right foot Relevant Findings:: Prelim report reviewed (Impression: Diffuse soft tissue swelling of the right forefoot without underlying fracture or dislocation. No definite radiographic findings to suggest osteomyelitis. If there is high clinical suspicion for osteomyelitis, consider MRI for further evaluation.), EMP independent interpretation of test, See rad report Procedures - General procedure General procedure: Debridement of plantar diabetic ulcer: with #15 blade, scissors and forceps thick callus is removed from the plantar surface of the right foot over the distal 4th,5th MT. debrided to vital tissue. culture obtained, wound dressed. PD Medical Decision Making - ED course Complexity details: reviewed old records, reviewed results, re-evaluated patient, considered differential, d/w patient Reviewed Lab Results: We reviewed a complete blood count showing a white blood cell count low at 4.2 normal hemoglobin hematocrit and platelets sedimentation rate was normal at 6 electrolytes were normal glucose is elevated to 48 liver functions were normal and the C-reactive protein normal at 0.5. I took these laboratory values to be reassuring that despite the appearance of the ulcer the process is not overwhelming to the patient. ED course: 67-year-old type II diabetic male presents to the emergency department unable to get into see the core mounter or wound care with a ulcer to the bottom of his foot which has progressed and now having bleeding every time that he walks. He has had some pain associated with this as well. Today we were able to debride the ulcer down to the vital tissue and dress it. A culture has been taken from the more superficial ulcer. The patient is placed onto antibiotic consisting of sulfamethoxazole trimethoprim and Keflex. I have encouraged the patient to follow-up with wound care and podiatry. Departure - Departure Disposition: 01 Home, Self Care Clinical Impression: Diabetic foot ulcer Qualifiers: Diabetic foot ulcer location: midfoot Diabetes mellitus type: type 1 Laterality: right Non-pressure ulcer stage: with necrosis of muscle Qualified Code(s): E10.621 - Type 1 diabetes mellitus with foot ulcer Condition: Stable Instructions: Diabetic Foot Ulcer Dc, ED Foot Care Diabetic Follow-Up: Jaik Henderson MD [Provider Admit Priv/Credential] - Prescriptions: Sulfamethox/Trimeth 800/160 [Bactrim Ds] 1 each PO BID #14 tablet cephALEXin [Keflex] 500 mg PO Q6H #28 cap HYDROcod/ACETAM 5/325 [[place] 5/325] 1 - 2 tablet PO Q6H PRN #14 tablet PRN Reason: Pain Comments: Edie, today it looks like the diabetic foot ulcer you have has some infection to it and we are starting you on some antibiotic. These have been E scribed to the [facility] in [place]. My recommendation is to follow-up with Jaki Henderson for a referral to the wound clinic and to follow-up with podiatry as well. A culture has been obtained of the foot ulcer and results should be available in 3 days time. We will not call you if the sensitivities appear congruent with the medication prescribed. Discharge Date/Time: 04/12/23 13:25
[2023-04-12 11:54] LABS: LIPASE < 10 U/L (11-82)
[2023-04-12 12:33] VITALS: BP 187/116; O2SAT 98
--- NOTE | 2023-04-12 12:33 | XRAY Report ---
PROCEDURE: Foot 3+V RT INDICATIONS: diabetic ulcer over 07/01 MT TECHNIQUE: 3 views of the foot were acquired. COMPARISON: 10/27/2022. FINDINGS: Bones: No acute fractures or dislocations. No suspicious bony lesions. Stable postsurgical changes of the right midfoot. Stable appearance of prior amputation of the right metatarsal and fourth toe at the level of the MTP. No definite osseous erosions. Polyarticular degenerative changes of the right midfoot, not significantly changed. Soft tissues: No suspicious soft tissue calcifications or masses. Diffuse soft tissue swelling of the dorsal right forefoot. IMPRESSION: Diffuse soft tissue swelling of the right forefoot without underlying fracture or dislocation. No def inite radiographic findings to suggest osteomyelitis. If there is high clinical suspicious for osteom yelitis, consider MRI for further evaluation. Reviewed by: John Marques MD on 04/12/2023 12:32 PM PST Approved by: John Marques MD on 04/12/2023 12:32 PM [facility] Station ID: [id number]
[2023-04-12] MEDS: amLODIPine 5 MG TABLET PO STA (12:48)
[2023-04-12] MEDS: LOSARTAN 50 MG TABLET PO STA (12:49)
--- NOTE | 2023-04-16 14:28 | ED Physician Documentation ---
ED Addendum - Addendum Addendum: 04/16/23 14:28 Cultures reviewed, polymicrobial growth, current antibiotic regimen is acceptable.
== END 2023-04-12 13:25 | disposition home or self-care (01) ==
LOC: ED 10:18
DX: E11.621 Type 2 diabetes mellitus with foot ulcer (principal); L97.515 Non-pressure chronic ulcer of other part of right foot with muscle involvement without evidence of necrosis; E11.42 Type 2 diabetes mellitus with diabetic polyneuropathy; Z79.4 Long term (current) use of insulin; I10 Essential (primary) hypertension; E78.00 Pure hypercholesterolemia, unspecified; I25.2 Old myocardial infarction; I48.91 Unspecified atrial fibrillation; G80.9 Cerebral palsy, unspecified; N40.0 Benign prostatic hyperplasia without lower urinary tract symptoms; M19.90 Unspecified osteoarthritis, unspecified site; Z79.01 Long term (current) use of anticoagulants; Z79.899 Other long term (current) drug therapy; Z89.421 Acquired absence of other right toe(s); F17.200 Nicotine dependence, unspecified, uncomplicated
CPT/HCPCS: 11055; 36415; 80053; 83690; 85025; 85651; 86140; 87070; 87077; 87181; 87205; 99284

== ENCOUNTER 2023-07-29 00:27 | Outpatient (CLI) | payer MEDICARE | END 2023-07-29 22:12 | disposition home or self-care (01) | LOC: EMS 00:27 | DX: R11.2 Nausea with vomiting, unspecified (principal); E10.65 Type 1 diabetes mellitus with hyperglycemia; I10 Essential (primary) hypertension; R00.0 Tachycardia, unspecified; R06.89 Other abnormalities of breathing | CPT/HCPCS: A0425; A0427 ==

== ENCOUNTER 2023-07-29 01:02 | Emergency (ER) | payer MEDICARE ==
[2023-07-29] MEDS: DROPERIDOL 5 MG/2 ML VIAL IVP STA (01:38)
[2023-07-29] MEDS: PANTOPRAZOLE 40 MG VIAL IVP STA (01:39)
[2023-07-29] MEDS: SODIUM CHLORIDE 0.9% 1,000 ML IV STA ×2 (01:39→02:52)
[2023-07-29 01:46] LABS: BASOPHILS % (AUTO) 0.1 %; HCT - HEMATOCRIT 51.5 % (42.0-52.0); HGB - HEMOGLOBIN 17.7 g/dL (14.0-18.0); LYMPHOCYTES # (AUTO) 0.4 10^3/uL (1.5-3.5); LYMPHOCYTES % (AUTO) 3.6 %; MEAN CORPUSCULAR HEMOGLOBIN 31.9 pg (27.0-31.0); MEAN CORPUSCULAR HGB CONC 34.4 g/dL (32.0-36.0); MEAN CORPUSCULAR VOLUME 92.8 fL (80.0-94.0); MONOCYTES # (AUTO) 0.8 10^3/uL (0.0-1.0); MONOCYTES % (AUTO) 7.5 %; NEUTROPHILS # (AUTO) 9.1 10^3/uL (1.5-6.6); NEUTROPHILS % (AUTO) 88.6 %; PLT - PLATELET COUNT 208 10^3/uL (130-450); RED BLOOD COUNT 5.55 10^6/uL (4.70-6.10); RED CELL DISTRIBUTION WIDTH 13.3 % (12.0-15.0); WHITE BLOOD COUNT 10.2 x10^3/uL (4.8-10.8)
[2023-07-29 01:52] LABS: KETONES, SERUM (ACETEST) SMALL (NEGATIVE)
[2023-07-29 02:00] LABS: LIPASE < 10 U/L (11-82)
[2023-07-29 02:02] LABS: ALBUMIN 4.1 g/dL (3.2-5.5); ALBUMIN/GLOBULIN RATIO 1.2 (1.0-2.2); ALKALINE PHOSPHATASE 76 IU/L (42-121); ALT ALANINE AMINOTRANSFERASE 19 IU/L (10-60); AST ASPARTATE AMINOTRANSFERASE 18 IU/L (10-42); BUN - BLOOD UREA NITROGEN 42 mg/dL (6-20); CALCIUM 9.5 mg/dL (8.5-10.3); CARBON DIOXIDE - CO2 18 mmol/L (21-32); CHLORIDE 100 mmol/L (101-111); CREATININE 1.5 mg/dL (0.6-1.3); GFR - MDRD 47 (>89); GLUCOSE 459 mg/dL (74-104); SODIUM 136 mmol/L (135-145); TOTAL PROTEIN 7.4 g/dL (6.4-8.9)
[2023-07-29 02:26] LABS: ABG BASE EXCESS -5.3 mmol/L (-2.0-3.0); ABG HCO3 18.9 mmol/L (22.0-26.0); ABG OXYGEN SATURATION 96 % (94-98); ABG PCO2 34 mmHg (34-45); ABG PH 7.37 (7.35-7.45); ABG PO2 89 mmHg (80-100); ALLEN TEST POSITIVE
--- NOTE | 2023-07-29 03:10 | ED Physician Documentation ---
History of Present Illness - Stated complaint Stated Complaint: N/V X 4 DAYS - Chief complaint Chief Complaint: Abd Pain - History obtained from History obtained from: Patient - Additonal information Additional information: The patient comes to the emergency department via EMS for chief complaint of vomiting and unable to hold anything down. The patient has been smoking a lot of marijuana lately and his symptoms started a few days ago in the setting. The patient is also a diabetic and uses insulin. He states that he has not been able to hold his other meds down because of the vomiting. The patient admits to having whole body pain, which is common for him. He denies any fevers or chills. No cough, other than feeling an urge to cough after he vomits. No dysuria. He has not been measuring his sugars at home. He does have a history of DKA previously. The patient states he has had a little bit of brown material in his vomit over the past 24 hours but that the first 2 days, it was completely clear. No bright red blood. PD PAST MEDICAL HISTORY - Past Medical History Cardiovascular: Hypertension, High cholesterol, [place], Atrial fibrillation Respiratory: None Neuro: Cerebral palsy, Peripheral neuropathy, Other Endocrine/Autoimmune: Type 2 diabetes GI: GERD, Other : Benign prostate hypertrophy HEENT: Chronic vision loss, Other Psych: Claustrophobia Musculoskeletal: Osteoarthritis Derm: None - Past Surgical History Past Surgical History: Yes General: Appendectomy Ortho: Amputation, Other Cardiovascular: Other - Present Medications Home Medications: Ambulatory Orders Medication Instructions Recorded Confirmed Tamsulosin [Flomax] 0.4 mg PO DAILY 06/09/19 05/18/23 Ondansetron Odt [Zofran Odt] 4 mg PO Q6H PRN 05/29/20 05/18/23 Apixaban [Eliquis] 5 mg PO BID 01/24/21 05/18/23 Omeprazole 40 mg PO DAILY 01/24/21 05/18/23 Insulin Aspart [Novolog Flexpen] 5 - 8 unit SQ TIDWM 02/24/21 05/18/23 Insulin Glargine [Lantus Solostar] 70 units SUBQ QPM 02/24/21 05/18/23 HYDROcod/ACETAM 5/325 [[place] 5/325] 1 - 2 tablet PO Q6H PRN #14 tablet 04/12/23 05/18/23 Losartan [Cozaar] 1 tab PO DAILY 04/12/23 05/18/23 amLODIPine [Norvasc] 1 tab PO DAILY 04/12/23 05/18/23 methocarbamoL [Methocarbamol] 1 tab PO DAILY 04/12/23 05/18/23 traMADol [Ultram] 1 tab PO DAILY 04/12/23 05/18/23 Ondansetron Odt [Zofran] 4 mg TL Q6H PRN #10 tablet 07/29/23 - Allergies Allergies/Adverse Reactions: Allergies Allergy/AdvReac Type Severity Reaction Status Date / Time No Known Drug Allergies Allergy Verified 07/29/23 01:13 - Social History Does the pt smoke?: Yes Smoking Status: Current every day smoker Does the pt drink ETOH?: No Does the pt have substance abuse?: Yes - Immunizations Immunizations are current?: Yes - POLST Patient has POLST: No POLST Status: Full Code PD ED PE NORMAL - Vitals Vital signs reviewed: Yes - General General: Alert and oriented X 3, Well developed/nourished, Other (The patient is in no distress but does appear mildly uncomfortable.) - HEENT HEENT: Atraumatic, EOMI, Moist mucous membranes - Neck Neck: Supple, no meningeal sign - Cardiac Cardiac: RRR, No murmur - Respiratory Respiratory: No respiratory distress, Clear bilaterally, Other (Repeated deep breaths at baseline.) - Abdomen Abdomen: Soft, Non distended, Other (Mild epigastric tenderness, no rebound or guarding) - Derm Derm: Warm and dry - Extremities Extremities: No deformity - Neuro Neuro: Alert and oriented X 3 - Psych Psych: Normal mood, Normal affect Results - Vitals Vitals: Vital Signs - 24 hr 07/29/23 07/29/23 07/29/23 01:10 01:13 03:30 Temperature 36.5 C Heart Rate 114 H 113 H 104 H Respiratory 20 18 Rate Blood Pressure 187/119 H 150/99 H O2 Saturation 98 99 98 07/29/23 07/29/23 05:00 05:26 Temperature Heart Rate 100 99 Respiratory 16 16 Rate Blood Pressure 120/90 H 120/90 H O2 Saturation 95 96 Oxygen O2 Source Room air - Labs Labs: Laboratory Tests 07/29/23 07/29/23 07/29/23 01:42 01:42 01:42 WBC 10.2 RBC 5.55 Hgb 17.7 Hct 51.5 MCV 92.8 MCH 31.9 H MCHC 34.4 RDW 13.3 Plt Count 208 MPV 10.0 Neut # (Auto) 9.1 H Lymph # (Auto) 0.4 L [place] # (Auto) 0.8 Eos # (Auto) 0.0 Baso # (Auto) 0.0 Absolute Nucleated RBC 0.00 Nucleated RBC % 0.0 Bld Gas Analysis Time ABG pH ABG pCO2 ABG pO2 ABG HCO3 ABG Total CO2 ABG O2 Saturation ABG Base Excess Marvin Test O2 Delivery Device O2 Liters/Min FiO2 Sodium 136 Potassium 4.0 Chloride 100 L Carbon Dioxide 18 L Anion Gap 18.0 H BUN 42 H Creatinine 1.5 H Estimated GFR (MDRD) 47 L Glucose 459 H POC Whole Bld Glucose Calcium 9.5 Total Bilirubin 1.0 AST 18 ALT 19 Alkaline Phosphatase 76 Total Protein 7.4 Albumin 4.1 Globulin 3.3 Albumin/Globulin Ratio 1.2 Lipase < 10 L Ethyl Alcohol < 10.0 Serum Ketones SMALL H 07/29/23 07/29/23 02:20 04:56 WBC RBC Hgb Hct MCV MCH MCHC RDW Plt Count MPV Neut # (Auto) Lymph # (Auto) [place] # (Auto) Eos # (Auto) Baso # (Auto) Absolute Nucleated RBC Nucleated RBC % Bld Gas Analysis Time 0224 ABG pH 7.37 ABG pCO2 34 ABG pO2 89 ABG HCO3 18.9 L ABG Total CO2 20.0 L ABG O2 Saturation 96 ABG Base Excess -5.3 L Marvin Test POSITIVE O2 Delivery Device NASAL CANNULA O2 Liters/Min 4.00 FiO2 36.00 Sodium Potassium Chloride Carbon Dioxide Anion Gap BUN Creatinine Estimated GFR (MDRD) Glucose POC Whole Bld Glucose 283 H Calcium Total Bilirubin AST ALT Alkaline Phosphatase Total Protein Albumin Globulin Albumin/Globulin Ratio Lipase Ethyl Alcohol Serum Ketones PD Medical Decision Making - ED course Complexity details: reviewed results, re-evaluated patient, considered differential, d/w patient ED course: The patient's workup was actually better than expected, with a blood sugar rafael vated in the mid 400s but an anion gap of less than 20 and Only mildly positive ketones. ABG showed slight acidosis. The patient was feeling much better after IV fluids, Protonix, droperidol, and a dose of insulin. His repeat blood sugar was 280. The patient was able to tolerate clear liquids in the emergency department and I felt he was stable for discharge home. We have discussed symptomatic management at home as well as the usual indications for return. Departure - Departure Disposition: 01 Home, Self Care Clinical Impression: Hyperglycemia due to type 1 diabetes mellitus Vomiting Qualifiers: Vomiting type: bilious vomiting Nausea presence: with nausea Qualified Code(s): R11.14 - Bilious vomiting Condition: Stable Instructions: ED Hyperglycemia Diabetic, ED Nausea Vomiting Prescriptions: Ondansetron Odt [Zofran] 4 mg TL Q6H PRN #10 tablet PRN Reason: Nausea / Vomiting Comments: Your sugar has come down nicely in the emergency department into the 200s from the 400s, and the remainder of your labs did not show DKA or any other significantly concerning findings. You are treated with a medication to calm the lining of your stomach keep you from bleeding so readily. You were also given medications for nausea and insulin for your blood sugar. Please take your medications every day, as directed. Please follow-up with your primary doctor for further concerns. Forms: PCP List Discharge Date/Time: 07/29/23 05:27
[2023-07-29] MEDS: INSULIN REGULAR HUMAN 300 UNIT/3 ML VIAL IVP STA (03:57)
[2023-07-29] MEDS: diphenhydrAMINE INJ 50 MG/ML VIAL IVP STA (04:53)
[2023-07-29 05:02] VITALS: BP 120/90
[2023-07-29 05:31] VITALS: O2SAT 96
== END 2023-07-29 05:27 | disposition home or self-care (01) ==
LOC: EDUNIT# → ED 01:02
DX: E10.65 Type 1 diabetes mellitus with hyperglycemia (principal); R11.14 Bilious vomiting; E87.20 Acidosis, unspecified; I10 Essential (primary) hypertension; E78.00 Pure hypercholesterolemia, unspecified; I48.91 Unspecified atrial fibrillation; G80.9 Cerebral palsy, unspecified; F17.200 Nicotine dependence, unspecified, uncomplicated
CPT/HCPCS: 36415; 80053; 82009; 82803; 83690; 85025; 96361; 96374; 96375; 99284; G0480; J1200; J1815; 82077

== ENCOUNTER 2023-07-30 18:38 | Inpatient (IN) | payer MEDICARE ==
[2023-07-30] MEDS: SODIUM CHLORIDE 0.9% 2,000 ML IV STA (19:19)
[2023-07-30 19:24] LABS: BASOPHILS % (AUTO) 0.1 %; HCT - HEMATOCRIT 53.1 % (42.0-52.0); HGB - HEMOGLOBIN 17.5 g/dL (14.0-18.0); LYMPHOCYTES # (AUTO) 0.5 10^3/uL (1.5-3.5); LYMPHOCYTES % (AUTO) 5.5 %; MEAN CORPUSCULAR HEMOGLOBIN 30.8 pg (27.0-31.0); MEAN CORPUSCULAR VOLUME 93.3 fL (80.0-94.0); MEAN PLATELET VOLUME 10.3 fL (7.4-11.4); MONOCYTES # (AUTO) 0.8 10^3/uL (0.0-1.0); MONOCYTES % (AUTO) 8.5 %; NEUTROPHILS # (AUTO) 7.8 10^3/uL (1.5-6.6); NEUTROPHILS % (AUTO) 85.6 %; PLT - PLATELET COUNT 226 10^3/uL (130-450); RED BLOOD COUNT 5.69 10^6/uL (4.70-6.10); RED CELL DISTRIBUTION WIDTH 13.2 % (12.0-15.0); WHITE BLOOD COUNT 9.1 x10^3/uL (4.8-10.8)
[2023-07-30 19:25] LABS: VBG PCO2 26.4 mmHg (41-51); VBG PH 7.46 (7.31-7.41)
[2023-07-30 19:26] LABS: VBG BASE EXCESS -3.2 mmol/L (-2 - +2); VBG HCO3 18.4 mmol/L (23-28); VBG OXYGEN SATURATION 83.1 % (60-80); VBG PO2 43.7 mmHg (25-47); VBG TOTAL CO2 19.2 mmol/L (24-29)
[2023-07-30 19:36] LABS: KETONES, SERUM (ACETEST) SMALL (NEGATIVE)
[2023-07-30 19:44] LABS: POTASSIUM 3.4 mmol/L (3.5-4.5); SODIUM 136 mmol/L (135-145)
[2023-07-30 19:45] LABS: ALBUMIN 3.9 g/dL (3.2-5.5); ALBUMIN/GLOBULIN RATIO 1.3 (1.0-2.2); ALKALINE PHOSPHATASE 75 IU/L (42-121); ALT ALANINE AMINOTRANSFERASE 18 IU/L (10-60); AST ASPARTATE AMINOTRANSFERASE 15 IU/L (10-42); BILIRUBIN,TOTAL 1.6 mg/dL (0.2-1.0); BUN - BLOOD UREA NITROGEN 32 mg/dL (6-20); CALCIUM 9.2 mg/dL (8.5-10.3); CARBON DIOXIDE - CO2 19 mmol/L (21-32); CHLORIDE 100 mmol/L (101-111); CREATININE 1.3 mg/dL (0.6-1.3); GFR - MDRD 55 (>89); GLUCOSE 332 mg/dL (74-104); LIPASE < 10 U/L (11-82)
[2023-07-30] MEDS: INSULIN REGULAR HUMAN 300 UNIT/3 ML VIAL SUBQ STA (20:35)
[2023-07-30] MEDS ORDERED: SODIUM CHLORIDE FLUSH 0.9% 10 ML SYRINGE IVP PRN (22:08)
[2023-07-30] MEDS ORDERED: ACETAMINOPHEN 325 MG TABLET PO PRN (22:08)
[2023-07-30] MEDS ORDERED: ONDANSETRON ODT 4 MG TABLET TL PRN (22:08)
--- NOTE | 2023-07-30 22:11 | ED Physician Documentation ---
History of Present Illness - Stated complaint Stated Complaint: DEHYDRATED/DIZZY - Chief complaint Chief Complaint: Abd Pain - History obtained from History obtained from: Patient - History of Present Illness Timing: Yesterday Pain level max: 0 Pain level now: 0 - Additonal information Additional information: Patient is a 67-year-old male who presents to the emergency department with vomiting and dizziness. He was seen here yesterday and had hyperglycemia, mild compensated acidosis. He received insulin and IV fluids. He states that he has continued to have some further emesis today. Saw his PCP who sent him back for evaluation. No recent travel. No recent antibiotics. No urinary symptoms. No fever, cough, congestion. Review of Systems Constitutional: denies: Fever, Chills Cardiac: denies: Chest pain / pressure Respiratory: denies: Dyspnea, Cough, Wheezing Skin: denies: Rash Musculoskeletal: denies: Neck pain, Back pain Neurologic: denies: Headache PD PAST MEDICAL HISTORY - Past Medical History Past Medical History: Yes Cardiovascular: Hypertension, High cholesterol, [place], Atrial fibrillation Respiratory: None Neuro: Cerebral palsy, Peripheral neuropathy, Other Endocrine/Autoimmune: Type 2 diabetes GI: GERD, Other : Benign prostate hypertrophy HEENT: Chronic vision loss, Other Psych: Claustrophobia Musculoskeletal: Osteoarthritis Derm: None - Past Surgical History Past Surgical History: Yes General: Appendectomy Ortho: Amputation, Other Cardiovascular: Other - Present Medications Home Medications: Ambulatory Orders Medication Instructions Recorded Confirmed Tamsulosin [Flomax] 0.4 mg PO DAILY 06/09/19 05/18/23 Ondansetron Odt [Zofran Odt] 4 mg PO Q6H PRN 05/29/20 05/18/23 Apixaban [Eliquis] 5 mg PO BID 01/24/21 05/18/23 Omeprazole 40 mg PO DAILY 01/24/21 05/18/23 Insulin Aspart [Novolog Flexpen] 5 - 8 unit SQ TIDWM 02/24/21 05/18/23 Insulin Glargine [Lantus Solostar] 70 units SUBQ QPM 02/24/21 05/18/23 HYDROcod/ACETAM 5/325 [[place] 5/325] 1 - 2 tablet PO Q6H PRN #14 tablet 04/12/23 05/18/23 Losartan [Cozaar] 1 tab PO DAILY 04/12/23 05/18/23 amLODIPine [Norvasc] 1 tab PO DAILY 04/12/23 05/18/23 methocarbamoL [Methocarbamol] 1 tab PO DAILY 04/12/23 05/18/23 traMADol [Ultram] 1 tab PO DAILY 04/12/23 05/18/23 Ondansetron Odt [Zofran] 4 mg TL Q6H PRN #10 tablet 07/29/23 - Allergies Allergies/Adverse Reactions: Allergies Allergy/AdvReac Type Severity Reaction Status Date / Time No Known Drug Allergies Allergy Verified 07/30/23 18:53 - Social History Does the pt smoke?: Yes Smoking Status: Current every day smoker Does the pt drink ETOH?: No Does the pt have substance abuse?: Yes - Immunizations Immunizations are current?: Yes - POLST Patient has POLST: No POLST Status: Full Code PD ED PE NORMAL - Vitals Vital signs reviewed: Yes - General General: Alert and oriented X 3, No acute distress - HEENT HEENT: PERRL, Other (Dry lips and tongue) - Neck Neck: Supple, no meningeal sign - Cardiac Cardiac: RRR (Tachycardic), Strong equal pulses - Respiratory Respiratory: No respiratory distress, Clear bilaterally - Abdomen Abdomen: Soft, Non tender, Non distended - Back Back: No CVA TTP, No spinal TTP - Derm Derm: Warm and dry - Extremities Extremities: No edema, No calf tenderness / cord - Neuro Neuro: Alert and oriented X 3 - Psych Psych: Normal mood, Normal affect Results - Vitals Vitals: Vital Signs - 24 hr 07/30/23 07/30/23 07/30/23 18:47 19:53 21:00 Temperature 36.4 C L Heart Rate 109 H 108 H 108 H Respiratory 24 18 18 Rate Blood Pressure 148/86 H 180/97 H 183/119 H O2 Saturation 100 98 98 Oxygen O2 Source Room air - Labs Labs: Laboratory Tests 07/30/23 07/30/23 07/30/23 19:19 19:19 19:19 WBC 9.1 RBC 5.69 Hgb 17.5 Hct 53.1 H MCV 93.3 MCH 30.8 MCHC 33.0 RDW 13.2 Plt Count 226 MPV 10.3 Neut # (Auto) 7.8 H Lymph # (Auto) 0.5 L [place] # (Auto) 0.8 Eos # (Auto) 0.0 Baso # (Auto) 0.0 Absolute Nucleated RBC 0.00 Nucleated RBC % 0.0 VBG pH 7.460 H VBG pCO2 26.4 L VBG pO2 43.7 VBG HCO3 18.4 L VBG Total CO2 19.2 L VBG O2 Saturation 83.1 H VBG Base Excess -3.2 L Sodium 136 Potassium 3.4 L Chloride 100 L Carbon Dioxide 19 L Anion Gap 17.0 H BUN 32 H Creatinine 1.3 Estimated GFR (MDRD) 55 L Glucose 332 H Calcium 9.2 Total Bilirubin 1.6 H AST 15 ALT 18 Alkaline Phosphatase 75 Total Protein 7.0 Albumin 3.9 Globulin 3.1 Albumin/Globulin Ratio 1.3 Lipase < 10 L Serum Ketones SMALL H PD Medical Decision Making - ED course Complexity details: reviewed results, re-evaluated patient, considered differential, d/w patient ED course: 67-year-old male appears significantly dehydrated likely secondary to his elevated blood glucose. He has a mild elevation of his anion gap. His bicarb is 18. His pH is normal however. He has small ketones as well. Given 2 L of IV fluid and subcu insulin. Blood sugar decreased to 286. He is feeling better, but given his persistent laboratory abnormalities from yesterday and bounce back in less than 24 hours, we will admit the patient for further care. Discussed the case with the nighttime hospitalist who accepts. This document was made in part using voice recognition software. While efforts are made to proofread this document, sound alike and grammatical errors may occur. Departure - Departure Disposition: ED Place in Observation Clinical Impression: DKA (diabetic ketoacidosis) Qualifiers: Diabetes mellitus type: due to underlying condition Diabetes mellitus complication detail: without coma Qualified Code(s): E08.10 - Diabetes mellitus due to underlying condition with ketoacidosis without coma N&V (nausea and vomiting) Qualifiers: Vomiting type: unspecified Qualified Code(s): R11.2 - Nausea with vomiting, unspecified Condition: Stable
--- NOTE | 2023-07-30 22:50 | HISTORY & PHYSICAL EXAMINATION ---
Chief Complaint - Chief Complaint Chief Complaint: nausea, vomitting, hyperglycemia History of Present Illness - History Obtained From Exam Limitations: poor historian - History of Present Illness HPI Comment/Other: Mr. Cueva presented to the ED for evaluation of persistent hyperglycemia, nausea and vomiting. Patient explained that he first experience these symptoms a week prior to his presentation. He denies any precipitating factors. He developed nausea and vomiting and noted that his blood glucose was running high, some readings in the upper 300s. He endorses compliance with his medication regimen, but he is unable to provide specific details. He stated that he is taking Lantus, Ozempic and sliding scale insulin. However despite this, he has been unable to control his blood sugar levels. In the ED, patient BG was greater than 300, bicarb 19, anion gap 16. After fluids, blood glucose level improved to mid 200s. patient was also given 10 units subQ regular insulin. During my evaluation. patient was alert and oriented. vitals stable and he was not in any acute distress.Patient will be admitted for further management. History - Past Medical History Cardiovascular: reports: Hypertension, High cholesterol, [place], Atrial fibrillation Respiratory: reports: None Neuro: reports: Cerebral palsy, Peripheral neuropathy, Other Endocrine/Autoimmune: reports: Type 2 diabetes GI: reports: GERD, Other : reports: Benign prostate hypertrophy HEENT: reports: Chronic vision loss, Other Psych: reports: Claustrophobia Musculoskeletal: reports: Osteoarthritis Derm: reports: None MRSA Hx?: No - Past Surgical History General: reports: Appendectomy Ortho: reports: Amputation, Other Cardiovascular: reports: Other - Family & Social History Family History: Father: Cancer, Sister: Diabetes, Type 1, Brother: Cancer, Diabetes, Type 1 Living Situation: Alone Social History Notes: He smokes marijuana on a weekly basis but no tobacco products. He drinks alcohol occasionally. No other recreational substance abuse. 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 - Substance History Use: Uses substance without health or social issues: Alcohol, Cannabis - POLST Patient has POLST: No POLST Status: Full Code Meds/Allgy - Home Medications Home Medications: Ambulatory Orders Medication Instructions Recorded Confirmed Tamsulosin [Flomax] 0.4 mg PO DAILY 06/09/19 05/18/23 Ondansetron Odt [Zofran Odt] 4 mg PO Q6H PRN 05/29/20 05/18/23 Apixaban [Eliquis] 5 mg PO BID 01/24/21 05/18/23 Omeprazole 40 mg PO DAILY 01/24/21 05/18/23 Insulin Aspart [Novolog Flexpen] 5 - 8 unit SQ TIDWM 02/24/21 05/18/23 Insulin Glargine [Lantus Solostar] 70 units SUBQ QPM 02/24/21 05/18/23 HYDROcod/ACETAM 5/325 [[place] 5/325] 1 - 2 tablet PO Q6H PRN #14 tablet 04/12/23 05/18/23 Losartan [Cozaar] 1 tab PO DAILY 04/12/23 05/18/23 amLODIPine [Norvasc] 1 tab PO DAILY 04/12/23 05/18/23 methocarbamoL [Methocarbamol] 1 tab PO DAILY 04/12/23 05/18/23 traMADol [Ultram] 1 tab PO DAILY 04/12/23 05/18/23 Ondansetron Odt [Zofran] 4 mg TL Q6H PRN #10 tablet 07/29/23 - Allergies Allergies/Adverse Reactions: Allergies Allergy/AdvReac Type Severity Reaction Status Date / Time No Known Drug Allergies Allergy Verified 07/30/23 18:53 Review of Systems - Constitutional Constitutional: reports: Fatigue, Poor appetite - Eyes Eyes: denies: Blurred vision, Spots in vision - Ears, Nose & Throat Ears, Nose & Throat: denies: Ear pain - Cardiovascular Cariovascular: denies: Chest pain, Lightheadedness, Syncope - Respiratory Respiratory: denies: Cough, Sputum production, SOB at rest - Gastrointestinal Gastrointestinal: reports: Abdominal pain, Nausea, Vomiting, Poor appetite. denies: Yossi blood emesis, Coffee grounds emesis - Genitourinary Genitourinary: denies: Dysuria, Urgency, Hematuria - Musculoskeletal Musculoskeletal: denies: Muscle pain, Back pain - Integumentary Integumentary: denies: Rash, Pruritis, Dryness - Psychiatric Psychiatric: denies: Depression, Suicidal - All Other Systems All Other Systems: reports: Reviewed and negative Exam - Vital Signs Reviewed Vital Signs: Yes Vital Signs: Vital Signs x48h Temp Pulse Resp BP Pulse Ox 07/30/23 21:00 108 H 18 183/119 H 98 07/30/23 19:53 108 H 18 180/97 H 98 07/30/23 18:47 36.4 C L 109 H 24 148/86 H 100 - Physical Exam General Appearance: positive: No acute distress, Alert Eyes Bilateral: positive: Normal inspection, PERRL Respiratory: positive: Chest non-tender, No respiratory distress Cardiovascular: positive: Regular rate & rhythm, No murmur, No gallop Abdomen: positive: No organomegaly, Nml bowel sounds, No distention Skin: positive: Color nml, No rash, Warm, Dry Extremities: positive: Non-tender, Full ROM, Nml appearance Neurologic/Psychiatric: positive: Oriented x3, Mood/affect nml Conclusion/Plan - Problem List (1) Poorly controlled diabetes mellitus Conclusion/Plan: - hyperglycemia elevated anion gap, low ketones noted -VBG 7.46, non acidotic -BG improved s/p IVF and subQ insulin, defer insulin drip at this time -continue with close BG monitoring with q2h POC glucose, q4h BMP. cover with sliding scale insulin subQ. If BG greater than 300 will provide IV insulin -case management, ict educator may be of benefit prior to discharge -monitor and replace potassium (2) N&V (nausea and vomiting) Conclusion/Plan: etiology uncertain: hyperglycemia, iatrogenic due to semglutide, gastroparesis -maintain npo, with sips of water and medication -as needed antiemetic: zofran -advance diet as tolerated, s/p period of bowel rest Qualifiers: Vomiting type: unspecified Qualified Code(s): R11.2 - Nausea with vomiting, unspecified (3) Afib Conclusion/Plan: - monitor on telemetry -resume eliquis as prescribed, patient only taking once daily due to cost. Qualifiers: Atrial fibrillation type: paroxysmal Qualified Code(s): I48.0 - Paroxysmal atrial fibrillation (4) Coronary artery disease Conclusion/Plan: - will review home regimen, uncertain of actual medications due to noncompliance and lack of patient knowledge -aspirin and statin to be initiated as tolerated -optimize medical management of hypertension and diabetes (5) Noncompliance with medication regimen Conclusion/Plan: -patient genetic counsellor -recommend case management consultation prior to discharge to ensure appropriate follow up and medication education. - Lab Results Lab results reviewed: Yes Fish Bones: 07/30/23 19:19 07/30/23 19:19
[2023-07-30 23:02] LABS: CALCIUM 9.2 mg/dL (8.5-10.3); CREATININE 1.2 mg/dL (0.6-1.3); POTASSIUM 3.5 mmol/L (3.5-4.5)
[2023-07-30] MEDS: INSULIN REGULAR HUMAN 300 UNIT/3 ML VIAL SUBQ SCH (23:48)
[2023-07-30] MEDS: SODIUM CHLORIDE 0.9% 1,000 ML IV SCH (23:49)
[2023-07-30] MEDS: SODIUM CHLORIDE FLUSH 0.9% 10 ML SYRINGE IVP SCH (23:50)
[2023-07-31] MEDS: hydrALAZINE INJ 20 MG/ML VIAL IVP PRN (01:28)
[2023-07-31 01:32] LABS: CREATININE 1.2 mg/dL (0.6-1.3); POTASSIUM 3.2 mmol/L (3.5-4.5)
[2023-07-31 01:33] LABS: MAGNESIUM 1.9 mg/dL (1.7-2.3)
[2023-07-31] MEDS: ONDANSETRON 4 MG/2 ML VIAL IVP PRN (04:51)
[2023-07-31] MEDS: POTASSIUM CHLOR 10 MEQ/100 ML 10 MEQ/100 ML BAG IV SCH (04:55)
[2023-07-31 05:47] LABS: BASOPHILS % (AUTO) 0.2 %; EOSINOPHILS % (AUTO) 0.1 %; HCT - HEMATOCRIT 50.2 % (42.0-52.0); HGB - HEMOGLOBIN 16.9 g/dL (14.0-18.0); LYMPHOCYTES # (AUTO) 0.7 10^3/uL (1.5-3.5); LYMPHOCYTES % (AUTO) 6.9 %; MEAN CORPUSCULAR HEMOGLOBIN 31.2 pg (27.0-31.0); MEAN CORPUSCULAR HGB CONC 33.7 g/dL (32.0-36.0); MEAN CORPUSCULAR VOLUME 92.8 fL (80.0-94.0); MEAN PLATELET VOLUME 10.1 fL (7.4-11.4); MONOCYTES # (AUTO) 0.9 10^3/uL (0.0-1.0); MONOCYTES % (AUTO) 8.8 %; NEUTROPHILS # (AUTO) 8.5 10^3/uL (1.5-6.6); NEUTROPHILS % (AUTO) 83.6 %; PLT - PLATELET COUNT 255 10^3/uL (130-450); RED BLOOD COUNT 5.41 10^6/uL (4.70-6.10); RED CELL DISTRIBUTION WIDTH 13.2 % (12.0-15.0); WHITE BLOOD COUNT 10.1 x10^3/uL (4.8-10.8)
[2023-07-31 06:14] LABS: CALCIUM 8.9 mg/dL (8.5-10.3); CREATININE 1.2 mg/dL (0.6-1.3); POTASSIUM 3.4 mmol/L (3.5-4.5)
[2023-07-31] MEDS: LOSARTAN 50 MG TABLET PO SCH (09:44)
[2023-07-31] MEDS: PANTOPRAZOLE 40 MG TABLET PO SCH (09:44)
[2023-07-31] MEDS: amLODIPine 5 MG TABLET PO SCH (09:44)
[2023-07-31] MEDS: APIXABAN 5 MG TABLET PO SCH (09:44)
[2023-07-31] MEDS: polyethylene glycoL 3350 17 GM PACKET PO SCH (10:22)
[2023-07-31 10:28] LABS: BILIRUBIN,URINE SMALL (NEGATIVE); GLUCOSE, URINE (UA) 500 mg/dL (NEGATIVE); KETONES,URINE (UA) 40 mg/dL (NEGATIVE); LEUKOCYTE ESTERASE, URINE NEGATIVE (NEGATIVE); NITRITE,URINE NEGATIVE (NEGATIVE); OCCULT BLOOD,URINE LARGE (NEGATIVE); PROTEIN,URINE 100 mg/dL (NEGATIVE); UROBILINOGEN,URINE 0.2 (NORMAL) E.U./dL (NORMAL)
[2023-07-31 10:30] LABS: CLARITY,URINE SL. CLOUDY (CLEAR)
[2023-07-31 10:35] LABS: BACTERIA,URINE Rare /HPF (None Seen); MUCUS,URINE Few Strands; SQUAMOUS EPITHELIAL CELL,UR FEW Squamous (<= Few); WBC,URINE 0-3 /HPF (0-3)
--- NOTE | 2023-07-31 12:14 | PHARMACY PROGRESS NOTE ---
- Best Possible Medication History Admit Date and Time: 07/30/237 Processed by: Nursing Medications reviewed in ED?: Yes Medication History completed: Yes Patient Interview: Completed (by [employer]GER) Secondary Source(s): Physician records, Insurance records As the person ultimately responsible for medication therapy, providers are able to order a medication from an existing home medication list in [facility] via the "Reconcile Routine" prior to Confirmation of that medication by computer network support specialist. Such practice is discouraged except when the physician, in their clinical judgment, deems that a medical need exists for a medication without regard to previous use.
[2023-07-31] MEDS: INSULIN LISPRO 300 UNIT/3 ML PEN SUBQ SCH ×2 (17:56→17:57)
--- NOTE | 2023-07-31 20:55 | PROVIDER PROGRESS NOTE ---
Assessment/Plan - Problem List (1) DKA (diabetic ketoacidosis) Qualifiers: Diabetes mellitus type: due to underlying condition Diabetes mellitus complication detail: without coma Qualified Code(s): E08.10 - Diabetes mellitus due to underlying condition with ketoacidosis without coma Assessment/Plan: Patient most likely had mild DKA on admission with an elevated anion gap and positive ketones. Blood glucose and anion gap have improved with intravenous fluid and subcutaneous insulin. (2) N&V (nausea and vomiting) Conclusion/Plan: Resolved. Continue to monitor. Qualifiers: Vomiting type: unspecified Qualified Code(s): R11.2 - Nausea with vomiting, unspecified (3) Afib Conclusion/Plan: - monitor on telemetry -resume eliquis as prescribed, patient only taking once daily due to cost. Qualifiers: Atrial fibrillation type: paroxysmal Qualified Code(s): I48.0 - Paroxysmal atrial fibrillation (4) Coronary artery disease Conclusion/Plan: Continue losartan, amlodipine, hydralazine and apixaban. (5) Noncompliance with medication regimen Conclusion/Plan: Recommend discussed medications with pharmacist prior to discharge. - Current Meds Current Meds: Current Medications Generic Name Dose Route Start Last Admin Trade Name Freq PRN Reason Stop Dose Admin Amlodipine Besylate 5 mg 07/31/23 09:00 07/31/23 09:44 Amlodipine 5 Mg Tablet PO 5 mg DAILY NATHANIEL Administration Apixaban 5 mg 07/31/23 09:00 07/31/23 20:38 Apixaban 5 Mg Tablet PO 5 mg BID NATHANIEL Administration Hydralazine HCl 5 mg 07/31/23 00:37 07/31/23 20:41 Hydralazine Inj 20 Mg/Ml Vial IVP 5 mg Q8H PRN Administration Hypertension SBP>180,DBP>100 Sodium Chloride 1,000 mls @ 100 mls/hr 07/30/23 23:00 07/31/23 16:03 Normal Saline 0.9% IV 100 mls/hr .Q10H NATHANIEL Administration Insulin Human Lispro 1 - 9 unit 07/31/23 17:00 07/31/23 20:46 Insulin Lispro 300 Unit/3 Ml Pen SUBQ Not Given 0800,1200,1700,2100 [facility] Protocol Insulin Human Lispro 5 unit 07/31/23 17:00 07/31/23 17:57 Insulin Lispro 300 Unit/3 Ml Pen SUBQ Not Given QDDINNER [facility] Protocol Losartan Potassium 50 mg 07/31/23 09:00 07/31/23 09:44 Losartan 50 Mg Tablet PO 50 mg DAILY NATHANIEL Administration Ondansetron HCl 4 mg 07/30/23 22:08 07/31/23 20:51 Ondansetron 4 Mg/2 Ml Vial IVP 4 mg Q6HR PRN Administration Nausea / Vomiting Pantoprazole Sodium 40 mg 07/31/23 09:00 07/31/23 09:44 Pantoprazole 40 Mg Tablet PO 40 mg QDAC NATHANIEL Administration Polyethylene Glycol 17 gm 07/31/23 10:00 07/31/23 10:22 Polyethylene Glycol 3350 17 Gm Packet PO 17 gm DAILY NATHANIEL Administration Sodium Chloride 10 ml 07/31/23 01:00 07/31/23 15:29 Sodium Chloride Flush 0.9% 10 Ml Syringe IVP Not Given 0100,0900,1700 NATHANIEL - Lab Result Fish Bone Diagrams: 07/31/23 05:39 07/31/23 05:39 - Additional Planning My Orders: My Active Orders 07/31/23 09:00 Apixaban [Eliquis] 5 mg PO BID Losartan [Cozaar] 50 mg PO DAILY Pantoprazole [Protonix] 40 mg PO QDAC amLODIPine [Norvasc] 5 mg PO DAILY 07/31/23 Lunch Carb-controlled Diet [DIET] 07/31/23 15:17 Blood Glucose Checks - Eating [RC] 0800,1200,1700,2100 Initiate Hypoglycemia Protocol [RC] .protocol 07/31/23 17:00 Insulin Lispro [Humalog Kwikpen U-100] 1 - 9 unit SUBQ 0800,1200,1700,2100 Insulin Lispro [Humalog Kwikpen U-100] 5 unit SUBQ QDDINNER 07/31/23 20:40 BMP - BASIC METABOLIC PANEL [CHEM] Routine 08/01/23 05:00 BMP - BASIC METABOLIC PANEL [CHEM] Routine MAGNESIUM [CHEM] Routine PHOSPHORUS [CHEM] Routine 08/01/23 08:00 Insulin Lispro [Humalog Kwikpen U-100] 5 unit SUBQ QDBREAKFAST 08/01/23 12:00 Insulin Lispro [Humalog Kwikpen U-100] 5 unit SUBQ QDLUNCH Subjective - Subjective Patient Reports: Other (Alert. Following commands denies shortness of breath chest pain abdominal pain at this time.) Objective Vital Signs: Vital Signs - 24 hr 07/30/23 07/30/23 07/30/23 21:00 22:21 23:20 Temperature 36.5 C Heart Rate 108 H 100 Heart Rate [ 110 H Brachial] Respiratory 18 19 18 Rate Blood Pressure 183/119 H 187/114 H Blood Pressure 165/107 H [Left Brachial artery] Blood Pressure [Right Brachial artery] Blood Pressure [Right Radial artery] O2 Saturation 98 98 97 If not protocol : Oxygen Flow, liters/minute 07/31/23 07/31/23 07/31/23 01:24 01:28 01:33 Temperature 36.7 C Heart Rate Heart Rate [ 104 H 98 Brachial] Respiratory 18 18 Rate Blood Pressure 186/121 H Blood Pressure 186/121 H 185/118 H [Left Brachial artery] Blood Pressure [Right Brachial artery] Blood Pressure [Right Radial artery] O2 Saturation 97 98 If not protocol : Oxygen Flow, liters/minute 07/31/23 07/31/23 07/31/23 01:36 01:45 01:58 Temperature Heart Rate Heart Rate [ 100 100 Brachial] Respiratory Rate Blood Pressure 145/99 H Blood Pressure 183/115 H 188/114 H [Left Brachial artery] Blood Pressure [Right Brachial artery] Blood Pressure [Right Radial artery] O2 Saturation If not protocol : Oxygen Flow, liters/minute 07/31/23 07/31/23 07/31/23 02:01 02:18 02:34 Temperature Heart Rate Heart Rate [ 100 99 95 Brachial] Respiratory Rate Blood Pressure Blood Pressure 185/101 H 131/104 H 146/99 H [Left Brachial artery] Blood Pressure [Right Brachial artery] Blood Pressure [Right Radial artery] O2 Saturation If not protocol : Oxygen Flow, liters/minute 07/31/23 07/31/23 07/31/23 03:57 07:29 12:19 Temperature 36.4 C L 36.6 C 36.6 C Heart Rate Heart Rate [ 96 109 H 91 Brachial] Respiratory 18 20 16 Rate Blood Pressure Blood Pressure 147/95 H 162/100 H 197/122 H [Left Brachial artery] Blood Pressure [Right Brachial artery] Blood Pressure [Right Radial artery] O2 Saturation 96 91 L 93 If not protocol : Oxygen Flow, liters/minute 05/07/2007/31/23 07/31/23 12:24 12:25 12:30 Temperature Heart Rate Heart Rate [ 91 91 Brachial] Respiratory Rate Blood Pressure 197/124 H Blood Pressure 197/124 H 178/121 H [Left Brachial artery] Blood Pressure [Right Brachial artery] Blood Pressure [Right Radial artery] O2 Saturation If not protocol : Oxygen Flow, liters/minute 07/31/23 07/31/23 07/31/23 12:35 12:40 12:55 Temperature Heart Rate Heart Rate [ 93 94 95 Brachial] Respiratory 16 Rate Blood Pressure 168/114 H Blood Pressure 188/111 H 168/114 H 164/112 H [Left Brachial artery] Blood Pressure [Right Brachial artery] Blood Pressure [Right Radial artery] O2 Saturation If not protocol : Oxygen Flow, liters/minute 07/31/23 07/31/23 07/31/23 13:10 13:11 13:25 Temperature Heart Rate Heart Rate [ 94 94 95 Brachial] Respiratory Rate Blood Pressure Blood Pressure 170/104 H 170/104 H 147/100 H [Left Brachial artery] Blood Pressure [Right Brachial artery] Blood Pressure [Right Radial artery] O2 Saturation If not protocol : Oxygen Flow, liters/minute 07/31/23 07/31/23 07/31/23 15:04 15:43 15:45 Temperature 36.6 C Heart Rate Heart Rate [ 94 97 Brachial] Respiratory 18 Rate Blood Pressure Blood Pressure 174/108 H 197/116 H [Left Brachial artery] Blood Pressure [Right Brachial artery] Blood Pressure 167/107 H [Right Radial artery] O2 Saturation 97 If not protocol 2 : Oxygen Flow, liters/minute 07/31/23 07/31/23 07/31/23 18:07 18:09 19:58 Temperature 36.6 C Heart Rate Heart Rate [ 89 Brachial] Respiratory 18 Rate Blood Pressure Blood Pressure [Left Brachial artery] Blood Pressure 118/87 H 186/104 H [Right Brachial artery] Blood Pressure [Right Radial artery] O2 Saturation 84 L 94 97 If not protocol 2 2 : Oxygen Flow, liters/minute 07/31/23 20:41 Temperature Heart Rate Heart Rate [ Brachial] Respiratory Rate Blood Pressure 195/116 H Blood Pressure [Left Brachial artery] Blood Pressure [Right Brachial artery] Blood Pressure [Right Radial artery] O2 Saturation If not protocol : Oxygen Flow, liters/minute Oxygen O2 Source Nasal cannula I&O (Last 24 Hrs): Intake and Output Totals x24h 07/29/23 07/30/23 07/31/23 23:59 23:59 23:59 Intake Total 1999 2341.000 Output Total 450 Balance 1999 1891.000 General: Alert, Oriented x3, Cooperative Neck: No JVD Neuro: Alert, Non Focal Cardiovascular: Other (Positive S1-S2 no extra heart sounds.) Respiratory: Other (Fair air exchange in all lung philippe. No wheezing no crackles.) Abdomen: Other (Soft nontender positive bowel sounds) Extremities: No cyanosis, No edema Skin: No rashes - Results Results: Laboratory Results WBC 10.1 x10^3/uL (4.8-10.8) 07/31/23 05:39 RBC 5.41 10^6/uL (4.70-6.10) 07/31/23 05:39 Hgb 16.9 g/dL (14.0-18.0) 07/31/23 05:39 Hct 50.2 % (42.0-52.0) 07/31/23 05:39 MCV 92.8 fL (80.0-94.0) 07/31/23 05:39 MCH 31.2 pg (27.0-31.0) H 07/31/23 05:39 MCHC 33.7 g/dL (32.0-36.0) 07/31/23 05:39 RDW 13.2 % (12.0-15.0) 07/31/23 05:39 Plt Count 255 10^3/uL (130-450) 07/31/23 05:39 MPV 10.1 fL (7.4-11.4) 07/31/23 05:39 Neut # (Auto) 8.5 10^3/uL (1.5-6.6) H 07/31/23 05:39 Lymph # (Auto) 0.7 10^3/uL (1.5-3.5) L 07/31/23 05:39 [place] # (Auto) 0.9 10^3/uL (0.0-1.0) 07/31/23 05:39 Eos # (Auto) 0.0 10^3/uL (0.0-0.7) 07/31/23 05:39 Baso # (Auto) 0.0 10^3/uL (0.0-0.1) 07/31/23 05:39 Absolute Nucleated RBC 0.00 x10^3/uL 07/31/23 05:39 Nucleated RBC % 0.0 /100WBC 07/31/23 05:39 VBG pH 7.460 (7.31-7.41) H 07/30/23 19:19 VBG pCO2 26.4 mmHg (41-51) L 07/30/23 19:19 VBG pO2 43.7 mmHg (25-47) 07/30/23 19:19 VBG HCO3 18.4 mmol/L (23-28) L 07/30/23 19:19 VBG Total CO2 19.2 mmol/L (24-29) L 07/30/23 19:19 VBG O2 Saturation 83.1 % (60-80) H 07/30/23 19:19 VBG Base Excess -3.2 mmol/L (-2 - +2) L 07/30/23 19:19 Sodium 140 mmol/L (135-145) 07/31/23 05:39 Potassium 3.4 mmol/L (3.5-4.5) L 07/31/23 05:39 Chloride 107 mmol/L (101-111) 07/31/23 05:39 Carbon Dioxide 24 mmol/L (21-32) 07/31/23 05:39 Anion Gap 9.0 (6-13) 07/31/23 05:39 BUN 31 mg/dL (6-20) H 07/31/23 05:39 Creatinine 1.2 mg/dL (0.6-1.3) 07/31/23 05:39 Estimated GFR (MDRD) 60 (>89) L 07/31/23 05:39 Glucose 97 mg/dL (74-104) 07/31/23 05:39 POC Whole Bld Glucose 134 mg/dL (70 - 100) H 07/31/23 20:46 Calcium 8.9 mg/dL (8.5-10.3) 07/31/23 05:39 Magnesium 1.9 mg/dL (1.7-2.3) 07/31/23 02:33 Total Bilirubin 1.6 mg/dL (0.2-1.0) H 07/30/23 19:19 AST 15 IU/L (10-42) 07/30/23 19:19 ALT 18 IU/L (10-60) 07/30/23 19:19 Alkaline Phosphatase 75 IU/L (42-121) 07/30/23 19:19 Total Protein 7.0 g/dL (6.4-8.9) 07/30/23 19:19 Albumin 3.9 g/dL (3.2-5.5) 07/30/23 19:19 Globulin 3.1 g/dL (2.1-4.2) 07/30/23 19:19 Albumin/Globulin Ratio 1.3 (1.0-2.2) 07/30/23 19:19 Lipase < 10 U/L (11-82) L 07/30/23 19:19 Urine Color DARK YELLOW 07/31/23 10:15 Urine Clarity SL. CLOUDY (CLEAR) 07/31/23 10:15 Urine pH 6.0 PH (5.0-7.5) 07/31/23 10:15 Ur Specific [place] 1.025 (1.002-1.030) 07/31/23 10:15 Urine Protein 100 mg/dL (NEGATIVE) H 07/31/23 10:15 Urine Glucose (UA) 500 mg/dL (NEGATIVE) H 07/31/23 10:15 Urine Ketones 40 mg/dL (NEGATIVE) H 07/31/23 10:15 Urine Occult Blood LARGE (NEGATIVE) H 07/31/23 10:15 Urine Nitrite NEGATIVE (NEGATIVE) 07/31/23 10:15 Urine Bilirubin SMALL (NEGATIVE) H 07/31/23 10:15 Urine Urobilinogen 0.2 (NORMAL) E.U./dL (NORMAL) 07/31/23 10:15 Ur Leukocyte Esterase NEGATIVE (NEGATIVE) 07/31/23 10:15 Urine RBC 11-25 /HPF (0-5) H 07/31/23 10:15 Urine WBC 0-3 /HPF (0-3) 07/31/23 10:15 Ur Squamous Epith Cells FEW Squamous (<= Few) 07/31/23 10:15 Urine Bacteria Rare /HPF (None Seen) 07/31/23 10:15 Urine Mucus Few Strands 07/31/23 10:15 Ur Microscopic Review INDICATED 07/31/23 10:15 Urine Culture Comments NOT INDICATED 07/31/23 10:15 Serum Ketones SMALL (NEGATIVE) H 07/30/23 19:19 - Procedures Procedures: Procedures DETACHMENT AT LEFT FOOT, PARTIAL 5TH RAY, OPEN APPROACH (12/20/19) EXCISION OF LEFT METATARSAL, OPEN APPROACH (12/06/19) INSERTION OF INFUSION DEV INTO SUP VENA CAVA, PERC APPROACH (05/28/20) INSERTION OF INFUSION DEVICE INTO R [facility], PERC APPROACH (06/09/19) ULTRASONOGRAPHY OF SUPERIOR VENA CAVA, GUIDANCE (06/09/19)
[2023-07-31 21:23] LABS: CALCIUM 8.9 mg/dL (8.5-10.3); CREATININE 1.2 mg/dL (0.6-1.3); POTASSIUM 3.5 mmol/L (3.5-4.5)
[2023-08-01 05:59] LABS: CALCIUM 8.5 mg/dL (8.5-10.3); CREATININE 1.1 mg/dL (0.6-1.3); MAGNESIUM 1.8 mg/dL (1.7-2.3); PHOSPHORUS 2.1 mg/dL (2.5-5.0); POTASSIUM 3.4 mmol/L (3.5-4.5)
[2023-08-01] MEDS: INSULIN LISPRO 300 UNIT/3 ML PEN SUBQ SCH ×2 (08:20→12:07)
[2023-08-01] MEDS ORDERED: LOSARTAN 50 MG TABLET PO SCH (09:00)
[2023-08-01] MEDS ORDERED: PROCHLORPERAZINE 5 MG TABLET PO PRN (17:56)
[2023-08-01] MEDS: SODIUM CHLORIDE 0.9% 1,000 ML IV SCH (18:27)
[2023-08-01] MEDS: LOSARTAN 50 MG TABLET PO SCH (20:03)
[2023-08-01] MEDS: PROCHLORPERAZINE 10 MG/2 ML VIAL IVP PRN (20:12)
--- NOTE | 2023-08-01 20:18 | PROVIDER PROGRESS NOTE ---
Assessment/Plan - Problem List (1) DKA (diabetic ketoacidosis) Qualifiers: Diabetes mellitus type: due to underlying condition Diabetes mellitus complication detail: without coma Qualified Code(s): E08.10 - Diabetes mellitus due to underlying condition with ketoacidosis without coma Assessment/Plan: Patient most likely had mild DKA on admission with an elevated anion gap and positive ketones. Blood glucose and anion gap have improved with intravenous fluid and subcutaneous insulin. Continue to monitor (2) N&V (nausea and vomiting) Conclusion/Plan: Patient complaining of nausea again. Compazine as needed for nausea and vomiting. Qualifiers: Vomiting type: unspecified Qualified Code(s): R11.2 - Nausea with vomiting, unspecified (3) Afib Conclusion/Plan: - monitor on telemetry -resume eliquis as prescribed, patient only taking once daily at [facility] to cost. Qualifiers: Atrial fibrillation type: paroxysmal Qualified Code(s): I48.0 - Paroxysmal atrial fibrillation (4) Coronary artery disease Conclusion/Plan: Continue losartan, amlodipine, hydralazine and apixaban. (5) Noncompliance with medication regimen Conclusion/Plan: Recommend discussed medications with pharmacist prior to discharge. (6) Hypokalemia Conclusion/Plan: Potassium is 3.4. Replace with intravenous potassium chloride at a rate of 10 mill equivalents per hour through peripheral line given the fact that patient is vomiting. (6) Disposition Conclusion/Plan: Patient continues to meet criteria for admission given the fact that he continues to have nausea and vomiting and if he were to be sent home at this time he most likely would be readmitted for diabetic ketoacidosis. - Current Meds Current Meds: Current Medications Generic Name Dose Route Start Last Admin Trade Name Freq PRN Reason Stop Dose Admin Amlodipine Besylate 5 mg 07/31/23 09:00 08/01/23 08:18 Amlodipine 5 Mg Tablet PO 5 mg DAILY NATHANIEL Administration Apixaban 5 mg 07/31/23 09:00 08/01/23 20:03 Apixaban 5 Mg Tablet PO 5 mg BID NATHANIEL Administration Hydralazine HCl 5 mg 07/31/23 00:37 08/01/23 20:03 Hydralazine Inj 20 Mg/Ml Vial IVP 5 mg Q8H PRN Administration Hypertension SBP>180,DBP>100 Sodium Chloride 1,000 mls @ 100 mls/hr 08/01/23 18:00 08/01/23 18:27 Normal Saline 0.9% IV 100 mls/hr .Q10H NATHANIEL Administration Insulin Human Lispro 1 - 9 unit 07/31/23 17:00 08/01/23 16:57 Insulin Lispro 300 Unit/3 Ml Pen SUBQ Not Given 0800,1200,1700,2100 [facility] Protocol Insulin Human Lispro 5 unit 08/01/23 08:00 08/01/23 08:20 Insulin Lispro 300 Unit/3 Ml Pen SUBQ 5 unit QDBREAKFAST NATHANIEL Administration Protocol Insulin Human Lispro 5 unit 08/01/23 12:00 08/01/23 12:07 Insulin Lispro 300 Unit/3 Ml Pen SUBQ 5 unit QDLUNCH [facility] Administration Protocol Insulin Human Lispro 5 unit 07/31/23 17:00 08/01/23 17:22 Insulin Lispro 300 Unit/3 Ml Pen SUBQ Not Given QDDINNER [facility] Protocol Losartan Potassium 50 mg 08/01/23 21:00 08/01/23 20:03 Losartan 50 Mg Tablet PO 50 mg BID NATHANIEL Administration Pantoprazole Sodium 40 mg 07/31/23 09:00 08/01/23 07:09 Pantoprazole 40 Mg Tablet PO 40 mg QDAC NATHANIEL Administration Polyethylene Glycol 17 gm 07/31/23 10:00 08/01/23 08:17 Polyethylene Glycol 3350 17 Gm Packet PO 17 gm DAILY NATHANIEL Administration Sodium Chloride 10 ml 07/31/23 01:00 08/01/23 17:26 Sodium Chloride Flush 0.9% 10 Ml Syringe IVP 10 ml 0100,0900,1700 [facility] Administration - Lab Result Fish Bone Diagrams: 07/31/23 05:39 08/01/23 05:33 - Additional Planning My Orders: My Active Orders 08/01/23 08:00 Insulin Lispro [Humalog Kwikpen U-100] 5 unit SUBQ QDBREAKFAST 08/01/23 12:00 Insulin Lispro [Humalog Kwikpen U-100] 5 unit SUBQ QDLUNCH 08/01/23 17:53 Prochlorperazine Inj [Compazine Inj] 10 mg IVP Q6HR PRN 08/01/23 17:56 Prochlorperazine [Compazine] 5 mg PO Q6HR PRN 08/01/23 18:00 Sodium Chloride 0.9% [Normal Saline 0.9%] 1,000 ml IV 100 mls/hr 08/01/23 21:00 Losartan [Cozaar] 50 mg PO BID Subjective - Subjective Patient Reports: Other (Alert. Continues to have episodes of nausea and vomiting. No other complaints at this time. He denies abdominal pain.) Objective Vital Signs: Vital Signs - 24 hr 07/31/23 07/31/23 07/31/23 20:41 20:46 20:51 Temperature Heart Rate [ 94 93 Brachial] Respiratory Rate Blood Pressure 195/116 H Blood Pressure 173/99 H 171/99 H [Right Brachial artery] O2 Saturation If not protocol : Oxygen Flow, liters/minute 07/31/23 07/31/23 07/31/23 20:56 21:05 21:11 Temperature Heart Rate [ 94 91 Brachial] Respiratory Rate Blood Pressure 154/86 H Blood Pressure 180/105 H 145/90 H [Right Brachial artery] O2 Saturation If not protocol : Oxygen Flow, liters/minute 07/31/23 07/31/23 07/31/23 21:20 21:35 23:39 Temperature 36.6 C Heart Rate [ 99 98 97 Brachial] Respiratory 19 Rate Blood Pressure Blood Pressure 148/81 H 133/84 H 152/99 H [Right Brachial artery] O2 Saturation 98 If not protocol 2 : Oxygen Flow, liters/minute 08/01/23 08/01/23 08/01/23 04:58 05:53 06:23 Temperature 36.6 C Heart Rate [ 112 H Brachial] Respiratory 20 Rate Blood Pressure 170/106 H 130/86 H Blood Pressure 169/117 H [Right Brachial artery] O2 Saturation 97 If not protocol : Oxygen Flow, liters/minute 08/01/23 08/01/23 08/01/23 07:11 07:55 08:18 Temperature 36.5 C Heart Rate [ 103 H Brachial] Respiratory 18 Rate Blood Pressure 188/116 H Blood Pressure 188/116 H [Right Brachial artery] O2 Saturation 94 94 If not protocol : Oxygen Flow, liters/minute 08/01/23 08/01/23 08/01/23 08:48 09:22 12:50 Temperature 36.6 C Heart Rate [ 98 95 Brachial] Respiratory 20 Rate Blood Pressure 137/82 H Blood Pressure 137/82 H 159/107 H [Right Brachial artery] O2 Saturation If not protocol : Oxygen Flow, liters/minute 08/01/23 08/01/23 16:01 20:03 Temperature 36.5 C Heart Rate [ 92 Brachial] Respiratory 18 Rate Blood Pressure 198/118 H Blood Pressure 149/98 H [Right Brachial artery] O2 Saturation 98 If not protocol : Oxygen Flow, liters/minute Oxygen O2 Source Room air I&O (Last 24 Hrs): Intake and Output Totals x24h 07/30/23 07/31/23 08/01/23 23:59 23:59 23:59 Intake Total 1999 2541.000 2440 Output Total 650 1300 Balance 1999 0334.235 5794 General: Alert, Oriented x3, Cooperative HEENT: Atraumatic Neck: No JVD Neuro: Alert, Non Focal Cardiovascular: Other (Positive S1-S2 no extra heart sounds.) Respiratory: Other (Fair air exchange in all lung philippe no wheezing no crackles.) Abdomen: Other (Obese soft nontender nondistended positive bowel sounds) Extremities: No cyanosis, No edema Skin: No rashes - Results Results: Laboratory Results WBC 10.1 x10^3/uL (4.8-10.8) 07/31/23 05:39 RBC 5.41 10^6/uL (4.70-6.10) 07/31/23 05:39 Hgb 16.9 g/dL (14.0-18.0) 07/31/23 05:39 Hct 50.2 % (42.0-52.0) 07/31/23 05:39 MCV 92.8 fL (80.0-94.0) 07/31/23 05:39 MCH 31.2 pg (27.0-31.0) H 07/31/23 05:39 MCHC 33.7 g/dL (32.0-36.0) 07/31/23 05:39 RDW 13.2 % (12.0-15.0) 07/31/23 05:39 Plt Count 255 10^3/uL (130-450) 07/31/23 05:39 MPV 10.1 fL (7.4-11.4) 07/31/23 05:39 Neut # (Auto) 8.5 10^3/uL (1.5-6.6) H 07/31/23 05:39 Lymph # (Auto) 0.7 10^3/uL (1.5-3.5) L 07/31/23 05:39 [place] # (Auto) 0.9 10^3/uL (0.0-1.0) 07/31/23 05:39 Eos # (Auto) 0.0 10^3/uL (0.0-0.7) 07/31/23 05:39 Baso # (Auto) 0.0 10^3/uL (0.0-0.1) 07/31/23 05:39 Absolute Nucleated RBC 0.00 x10^3/uL 07/31/23 05:39 Nucleated RBC % 0.0 /100WBC 07/31/23 05:39 VBG pH 7.460 (7.31-7.41) H 07/30/23 19:19 VBG pCO2 26.4 mmHg (41-51) L 07/30/23 19:19 VBG pO2 43.7 mmHg (25-47) 07/30/23 19:19 VBG HCO3 18.4 mmol/L (23-28) L 07/30/23 19:19 VBG Total CO2 19.2 mmol/L (24-29) L 07/30/23 19:19 VBG O2 Saturation 83.1 % (60-80) H 07/30/23 19:19 VBG Base Excess -3.2 mmol/L (-2 - +2) L 07/30/23 19:19 Sodium 138 mmol/L (135-145) 08/01/23 05:33 Potassium 3.4 mmol/L (3.5-4.5) L 08/01/23 05:33 Chloride 107 mmol/L (101-111) 08/01/23 05:33 Carbon Dioxide 23 mmol/L (21-32) 08/01/23 05:33 Anion Gap 8.0 (6-13) 08/01/23 05:33 BUN 24 mg/dL (6-20) H 08/01/23 05:33 Creatinine 1.1 mg/dL (0.6-1.3) 08/01/23 05:33 Estimated GFR (MDRD) 67 (>89) L 08/01/23 05:33 Glucose 194 mg/dL (74-104) H 08/01/23 05:33 POC Whole Bld Glucose 136 mg/dL (70 - 100) H 08/01/23 16:32 Calcium 8.5 mg/dL (8.5-10.3) 08/01/23 05:33 Phosphorus 2.1 mg/dL (2.5-5.0) L 08/01/23 05:33 Magnesium 1.8 mg/dL (1.7-2.3) 08/01/23 05:33 Total Bilirubin 1.6 mg/dL (0.2-1.0) H 07/30/23 19:19 AST 15 IU/L (10-42) 07/30/23 19:19 ALT 18 IU/L (10-60) 07/30/23 19:19 Alkaline Phosphatase 75 IU/L (42-121) 07/30/23 19:19 Total Protein 7.0 g/dL (6.4-8.9) 07/30/23 19:19 Albumin 3.9 g/dL (3.2-5.5) 07/30/23 19:19 Globulin 3.1 g/dL (2.1-4.2) 07/30/23 19:19 Albumin/Globulin Ratio 1.3 (1.0-2.2) 07/30/23 19:19 Lipase < 10 U/L (11-82) L 07/30/23 19:19 Urine Color DARK YELLOW 07/31/23 10:15 Urine Clarity SL. CLOUDY (CLEAR) 07/31/23 10:15 Urine pH 6.0 PH (5.0-7.5) 07/31/23 10:15 Ur Specific [place] 1.025 (1.002-1.030) 07/31/23 10:15 Urine Protein 100 mg/dL (NEGATIVE) H 07/31/23 10:15 Urine Glucose (UA) 500 mg/dL (NEGATIVE) H 07/31/23 10:15 Urine Ketones 40 mg/dL (NEGATIVE) H 07/31/23 10:15 Urine Occult Blood LARGE (NEGATIVE) H 07/31/23 10:15 Urine Nitrite NEGATIVE (NEGATIVE) 07/31/23 10:15 Urine Bilirubin SMALL (NEGATIVE) H 07/31/23 10:15 Urine Urobilinogen 0.2 (NORMAL) E.U./dL (NORMAL) 07/31/23 10:15 Ur Leukocyte Esterase NEGATIVE (NEGATIVE) 07/31/23 10:15 Urine RBC 11-25 /HPF (0-5) H 07/31/23 10:15 Urine WBC 0-3 /HPF (0-3) 07/31/23 10:15 Ur Squamous Epith Cells FEW Squamous (<= Few) 07/31/23 10:15 Urine Bacteria Rare /HPF (None Seen) 07/31/23 10:15 Urine Mucus Few Strands 07/31/23 10:15 Ur Microscopic Review INDICATED 07/31/23 10:15 Urine Culture Comments NOT INDICATED 07/31/23 10:15 Serum Ketones SMALL (NEGATIVE) H 07/30/23 19:19 - Procedures Procedures: Procedures DETACHMENT AT LEFT FOOT, PARTIAL 5TH RAY, OPEN APPROACH (12/20/19) EXCISION OF LEFT METATARSAL, OPEN APPROACH (12/06/19) INSERTION OF INFUSION DEV INTO SUP VENA CAVA, PERC APPROACH (05/28/20) INSERTION OF INFUSION DEVICE INTO R [facility], PERC APPROACH (06/09/19) ULTRASONOGRAPHY OF SUPERIOR VENA CAVA, GUIDANCE (06/09/19)
[2023-08-01] MEDS: POTASSIUM CHLOR 10 MEQ/100 ML 10 MEQ/100 ML BAG IV SCH (22:10)
[2023-08-01] MEDS: POTASSIUM CHLORIDE INJ 40 MEQ in SODIUM CHLORIDE 0.9% 500 ML IV ONE (23:42)
[2023-08-02] MEDS: ONDANSETRON 4 MG/2 ML VIAL IVP PRN (02:18)
[2023-08-02] MEDS: SENNA 8.6 MG TABLET PO SCH (08:20)
[2023-08-02] MEDS: DOCUSATE SODIUM 250 MG CAPSULE PO SCH (08:20)
[2023-08-02 08:27] LABS: HCT - HEMATOCRIT 49.7 % (42.0-52.0); HGB - HEMOGLOBIN 16.3 g/dL (14.0-18.0); MEAN CORPUSCULAR HEMOGLOBIN 30.8 pg (27.0-31.0); MEAN CORPUSCULAR HGB CONC 32.8 g/dL (32.0-36.0); MEAN CORPUSCULAR VOLUME 93.8 fL (80.0-94.0); MEAN PLATELET VOLUME 9.9 fL (7.4-11.4); RED BLOOD COUNT 5.3 10^6/uL (4.70-6.10); RED CELL DISTRIBUTION WIDTH 13.2 % (12.0-15.0); WHITE BLOOD COUNT 7.6 x10^3/uL (4.8-10.8)
[2023-08-02 08:37] LABS: MAGNESIUM 1.8 mg/dL (1.7-2.3)
[2023-08-02 08:43] LABS: CALCIUM 8.5 mg/dL (8.5-10.3); CREATININE 1.2 mg/dL (0.6-1.3); PHOSPHORUS 2.8 mg/dL (2.5-5.0); POTASSIUM 3.8 mmol/L (3.5-4.5)
[2023-08-02] MEDS: METOCLOPRAMIDE 10 MG TABLET PO SCH (11:40)
--- NOTE | 2023-08-02 18:20 | PROVIDER PROGRESS NOTE ---
Assessment/Plan - Problem List (1) DKA (diabetic ketoacidosis) Qualifiers: Diabetes mellitus type: due to underlying condition Diabetes mellitus complication detail: without coma Qualified Code(s): E08.10 - Diabetes mellitus due to underlying condition with ketoacidosis without coma Assessment/Plan: Patient most likely had mild DKA on admission with an elevated anion gap and positive ketones. Blood glucose and anion gap have improved with intravenous fluid and subcutaneous insulin. Continue to monitor (2) N&V (nausea and vomiting) Conclusion/Plan: Nausea and vomiting continued intermittently throughout the day yesterday. Patient most likely has diabetic gastroparesis and treatment has been initiated with metoclopramide 5 mg 15 minutes before mealtime and at bedtime. Qualifiers: Vomiting type: unspecified Qualified Code(s): R11.2 - Nausea with vomiting, unspecified (3) Afib Conclusion/Plan: - monitor on telemetry -Continue Eliquis Qualifiers: Atrial fibrillation type: paroxysmal Qualified Code(s): I48.0 - Paroxysmal atrial fibrillation (4) Coronary artery disease Conclusion/Plan: Continue losartan, amlodipine, hydralazine and apixaban. (5) Noncompliance with medication regimen Conclusion/Plan: Recommend discussed medications with pharmacist prior to discharge. (6) Hypokalemia Conclusion/Plan: Potassium is 3.8. (6) Disposition Conclusion/Plan: Patient continues to meet criteria for admission given the fact that he continues to have nausea and vomiting and if he were to be sent home at this time he most likely would be readmitted for diabetic ketoacidosis. - Current Meds Current Meds: Current Medications Generic Name Dose Route Start Last Admin Trade Name Oliq PRN Reason Stop Dose Admin Amlodipine Besylate 5 mg 07/31/23 09:00 08/02/23 08:20 Amlodipine 5 Mg Tablet PO 5 mg DAILY NATHANIEL Administration Apixaban 5 mg 07/31/23 09:00 08/02/23 08:20 Apixaban 5 Mg Tablet PO 5 mg BID NATHANIEL Administration Docusate Sodium 250 - 500 mg 08/02/23 09:00 08/02/23 08:20 Docusate Sodium 250 Mg Capsule PO 500 mg DAILY NATHANIEL Administration Hydralazine HCl 5 mg 07/31/23 00:37 08/01/23 20:03 Hydralazine Inj 20 Mg/Ml Vial IVP 5 mg Q8H PRN Administration Hypertension SBP>180,DBP>100 Insulin Human Lispro 1 - 9 unit 07/31/23 17:00 08/02/23 16:38 Insulin Lispro 300 Unit/3 Ml Pen SUBQ Not Given 0800,1200,1700,2100 [facility] Protocol Insulin Human Lispro 5 unit 08/01/23 08:00 08/02/23 08:22 Insulin Lispro 300 Unit/3 Ml Pen SUBQ 5 unit [id number] NATHANIEL Administration Protocol Insulin Human Lispro 5 unit 08/01/23 12:00 08/02/23 12:10 Insulin Lispro 300 Unit/3 Ml Pen SUBQ 5 unit QDLUNCH NATHANIEL Administration Protocol Insulin Human Lispro 5 unit 07/31/23 17:00 08/02/23 17:45 Insulin Lispro 300 Unit/3 Ml Pen SUBQ 5 unit QDDINNER [facility] Administration Protocol Losartan Potassium 50 mg 08/01/23 21:00 08/02/23 08:21 Losartan 50 Mg Tablet PO 50 mg BID NATHANIEL Administration Metoclopramide HCl 5 mg 08/02/23 11:00 08/02/23 16:41 Metoclopramide 10 Mg Tablet PO 5 mg ACHS NATHANIEL Administration Ondansetron HCl 4 mg 08/02/23 01:23 08/02/23 02:18 Ondansetron 4 Mg/2 Ml Vial IVP 4 mg Q6HR PRN Administration Nausea / Vomiting Pantoprazole Sodium 40 mg 07/31/23 09:00 08/02/23 06:09 Pantoprazole 40 Mg Tablet PO 40 mg QDAC NATHANIEL Administration Polyethylene Glycol 17 gm 07/31/23 10:00 08/02/23 08:20 Polyethylene Glycol 3350 17 Gm Packet PO Not Given DAILY NATHANIEL Senna 17.2 - 25.8 mg 08/02/23 08:30 08/02/23 14:11 Senna 8.6 Mg Tablet PO 08/03/23 02:31 17.2 mg Q6H NATHANIEL Administration Sodium Chloride 10 ml 07/31/23 01:00 08/02/23 16:41 Sodium Chloride Flush 0.9% 10 Ml Syringe IVP 10 ml 0100,0900,1700 NATHANIEL Administration - Lab Result Fish Bone Diagrams: 08/02/23 08:23 08/02/23 08:23 - Additional Planning My Orders: My Active Orders 08/01/23 21:00 Losartan [Cozaar] 50 mg PO BID 08/02/23 08:30 Senna [Senokot] 17.2 - 25.8 mg PO Q6H 08/02/23 09:00 Docusate Sodium 250Mg Capsule [Colace 250Mg Capsule] 250 - 500 mg PO DAILY 08/02/23 11:00 Metoclopramide [Reglan] 5 mg PO ACHS Subjective - Subjective Patient Reports: Other (Alert. Continues to complain of nausea and vomiting. Reports he has been smoking/using marijuana. He denies chest pain, abdominal pain.) Objective Vital Signs: Vital Signs - 24 hr 08/01/23 08/01/23 08/01/23 20:03 20:17 20:33 Temperature Heart Rate [ 100 Brachial] Respiratory Rate Blood Pressure 198/118 H 162/105 H Blood Pressure 165/105 H [Right Brachial artery] O2 Saturation 08/01/23 08/01/23 08/01/23 20:34 22:11 22:16 Temperature 36.5 C Heart Rate [ 96 97 98 Brachial] Respiratory 18 Rate Blood Pressure Blood Pressure 144/100 H 141/91 H [Right Brachial artery] O2 Saturation 96 08/01/23 08/02/23 08/02/23 23:44 05:04 07:31 Temperature 36.5 C 36.4 C L 37.0 C Heart Rate [ 87 88 87 Brachial] Respiratory 18 18 16 Rate Blood Pressure Blood Pressure 170/103 H 146/88 H 141/88 H [Right Brachial artery] O2 Saturation 95 97 95 08/02/23 08/02/23 08/02/23 11:50 14:07 16:21 Temperature 36.6 C 36.6 C Heart Rate [ 92 83 Brachial] Respiratory 18 16 18 Rate Blood Pressure Blood Pressure 194/110 H 140/89 H 158/89 H [Right Brachial artery] O2 Saturation 95 96 95 Oxygen O2 Source Room air I&O (Last 24 Hrs): Intake and Output Totals x24h 07/31/23 08/01/23 08/02/23 23:59 23:59 23:59 Intake Total 2541.000 2688.333 2683.667 Output Total 650 1300 250 Balance 0132.212 4981.333 2433.667 General: Alert, Oriented x3, No acute distress Neck: Supple, No JVD Neuro: Alert, Non Focal Cardiovascular: Other (Positive S1-S2 no extra heart sounds.) Respiratory: Other (Good air exchange in all lung philippe no wheezing no crackles.) Abdomen: Other (Soft nontender nondistended positive bowel sounds) Extremities: No cyanosis, No edema Skin: No rashes - Results Results: Laboratory Results WBC 7.6 x10^3/uL (4.8-10.8) 08/02/23 08:23 RBC 5.30 10^6/uL (4.70-6.10) 08/02/23 08:23 Hgb 16.3 g/dL (14.0-18.0) 08/02/23 08:23 Hct 49.7 % (42.0-52.0) 08/02/23 08:23 MCV 93.8 fL (80.0-94.0) 08/02/23 08:23 MCH 30.8 pg (27.0-31.0) 08/02/23 08:23 MCHC 32.8 g/dL (32.0-36.0) 08/02/23 08:23 RDW 13.2 % (12.0-15.0) 08/02/23 08:23 Plt Count 245 10^3/uL (130-450) 08/02/23 08:23 MPV 9.9 fL (7.4-11.4) 08/02/23 08:23 Neut # (Auto) 8.5 10^3/uL (1.5-6.6) H 07/31/23 05:39 Lymph # (Auto) 0.7 10^3/uL (1.5-3.5) L 07/31/23 05:39 Stewart # (Auto) 0.9 10^3/uL (0.0-1.0) 07/31/23 05:39 Eos # (Auto) 0.0 10^3/uL (0.0-0.7) 07/31/23 05:39 Baso # (Auto) 0.0 10^3/uL (0.0-0.1) 07/31/23 05:39 Absolute Nucleated RBC 0.00 x10^3/uL 07/31/23 05:39 Nucleated RBC % 0.0 /100WBC 07/31/23 05:39 VBG pH 7.460 (7.31-7.41) H 07/30/23 19:19 VBG pCO2 26.4 mmHg (41-51) L 07/30/23 19:19 VBG pO2 43.7 mmHg (25-47) 07/30/23 19:19 VBG HCO3 18.4 mmol/L (23-28) L 07/30/23 19:19 VBG Total CO2 19.2 mmol/L (24-29) L 07/30/23 19:19 VBG O2 Saturation 83.1 % (60-80) H 07/30/23 19:19 VBG Base Excess -3.2 mmol/L (-2 - +2) L 07/30/23 19:19 Sodium 137 mmol/L (135-145) 08/02/23 08:23 Potassium 3.8 mmol/L (3.5-4.5) 08/02/23 08:23 Chloride 106 mmol/L (101-111) 08/02/23 08:23 Carbon Dioxide 23 mmol/L (21-32) 08/02/23 08:23 Anion Gap 8.0 (6-13) 08/02/23 08:23 BUN 25 mg/dL (6-20) H 08/02/23 08:23 Creatinine 1.2 mg/dL (0.6-1.3) 08/02/23 08:23 Estimated GFR (MDRD) 60 (>89) L 08/02/23 08:23 Glucose 206 mg/dL (74-104) H 08/02/23 08:23 POC Whole Bld Glucose 130 mg/dL (70 - 100) H 08/02/23 16:29 Calcium 8.5 mg/dL (8.5-10.3) 08/02/23 08:23 Phosphorus 2.8 mg/dL (2.5-5.0) 08/02/23 08:23 Magnesium 1.8 mg/dL (1.7-2.3) 08/02/23 08:23 Total Bilirubin 1.6 mg/dL (0.2-1.0) H 07/30/23 19:19 AST 15 IU/L (10-42) 07/30/23 19:19 ALT 18 IU/L (10-60) 07/30/23 19:19 Alkaline Phosphatase 75 IU/L (42-121) 07/30/23 19:19 Total Protein 7.0 g/dL (6.4-8.9) 07/30/23 19:19 Albumin 3.9 g/dL (3.2-5.5) 07/30/23 19:19 Globulin 3.1 g/dL (2.1-4.2) 07/30/23 19:19 Albumin/Globulin Ratio 1.3 (1.0-2.2) 07/30/23 19:19 Lipase < 10 U/L (11-82) L 07/30/23 19:19 Urine Color DARK YELLOW 07/31/23 10:15 Urine Clarity SL. CLOUDY (CLEAR) 07/31/23 10:15 Urine pH 6.0 PH (5.0-7.5) 07/31/23 10:15 Ur Specific [place] 1.025 (1.002-1.030) 07/31/23 10:15 Urine Protein 100 mg/dL (NEGATIVE) H 07/31/23 10:15 Urine Glucose (UA) 500 mg/dL (NEGATIVE) H 07/31/23 10:15 Urine Ketones 40 mg/dL (NEGATIVE) H 07/31/23 10:15 Urine Occult Blood LARGE (NEGATIVE) H 07/31/23 10:15 Urine Nitrite NEGATIVE (NEGATIVE) 07/31/23 10:15 Urine Bilirubin SMALL (NEGATIVE) H 07/31/23 10:15 Urine Urobilinogen 0.2 (NORMAL) E.U./dL (NORMAL) 07/31/23 10:15 Ur Leukocyte Esterase NEGATIVE (NEGATIVE) 07/31/23 10:15 Urine RBC 11-25 /HPF (0-5) H 07/31/23 10:15 Urine WBC 0-3 /HPF (0-3) 07/31/23 10:15 Ur Squamous Epith Cells FEW Squamous (<= Few) 07/31/23 10:15 Urine Bacteria Rare /HPF (None Seen) 07/31/23 10:15 Urine Mucus Few Strands 07/31/23 10:15 Ur Microscopic Review INDICATED 07/31/23 10:15 Urine Culture Comments NOT INDICATED 07/31/23 10:15 Serum Ketones SMALL (NEGATIVE) H 07/30/23 19:19 - Procedures Procedures: Procedures DETACHMENT AT LEFT FOOT, PARTIAL 5TH RAY, OPEN APPROACH (12/20/19) EXCISION OF LEFT METATARSAL, OPEN APPROACH (12/06/19) INSERTION OF INFUSION DEV INTO SUP VENA CAVA, PERC APPROACH (05/28/20) INSERTION OF INFUSION DEVICE INTO R ATRIUM, PERC APPROACH (06/09/19) ULTRASONOGRAPHY OF SUPERIOR VENA CAVA, GUIDANCE (06/09/19)
[2023-08-03] MEDS ORDERED: ONDANSETRON ODT 4 MG TABLET TL PRN (03:36)
[2023-08-03 05:55] LABS: CALCIUM 8.4 mg/dL (8.5-10.3); CREATININE 1.2 mg/dL (0.6-1.3); PHOSPHORUS 2.7 mg/dL (2.5-5.0); POTASSIUM 3.7 mmol/L (3.5-4.5)
[2023-08-03 06:07] VITALS: O2SAT 96
[2023-08-03 07:46] VITALS: BP 170/106
[2023-08-03] MEDS: hydrALAZINE 10 MG TABLET PO PRN (08:14)
--- NOTE | 2023-08-03 08:50 | Discharge Plan ---
Discharge Plan Problem Reviewed?: Yes Disposition: Home, Self Care Condition: Stable Prescriptions: Metoclopramide [Reglan] 5 mg PO ACHS #120 tab Diet: Diabetic Activity Restrictions: No Restrictions Shower Restrictions: No Driving Restrictions: No Assistance Devices: Cane Weight Bearing: Full Weight Instruction Topics: ED Diabetic Gastroparesis Health Concerns: History of Present Illness per Dr. Chel Boyer's history and physical: Mr. Cueva presented to the ED for evaluation of persistent hyperglycemia, nausea and vomiting. Patient explained that he first experience these symptoms a week prior to his presentation. He denies any precipitating factors. He developed nausea and vomiting and noted that his blood glucose was running high, some readings in the upper 300s. He endorses compliance with his medication regimen, but he is unable to provide specific details. He stated that he is taking Lantus, Ozempic and sliding scale insulin. However despite this, he has been unable to control his blood sugar levels. In the ED, patient BG was greater than 300, bicarb 19, anion gap 16. After fluids, blood glucose level improved to mid 200s. patient was also given 10 units subQ regular insulin. During my evaluation. patient was alert and oriented. vitals stable and he was not in any acute distress.Patient will be admitted for further management. Hospital Course: Mr. Cueva was admitted to the hospital for treatment of mild diabetic ketoacidosis/poorly controlled diabetes. He was treated with fluid hydration and subcutaneous insulin. Throughout his hospitalization he continued complaint of nausea and vomiting. Treatment was initiated with Zofran and he underwent a trial of Compazine. Neither Zofran or Compazine relieved his symptoms. Patient's symptoms were consistent with diabetic gastroparesis and treatment was initiated with metoclopramide 5 mg 15 minutes before each meal and at bedtime. Since initiating the metoclopramide, his symptoms have resolved and he is stable for discharge. Plan of Treatment: 1. Please take all medications as prescribed. 2. Please follow-up with your primary care provider in 2-4 weeks. 3.Please stop metoclopramide after 12 weeks of treatment. Please discuss continuing this medication with your primary care provider. Today we discussed the adverse effects of metoclopramide to include dystonia, tardive dyskinesia, (arrhythmia) QT interval prolongation, depression, and anxiety. This is not an exhaustive list but list the most common and worse complications of prolonged use of this medications. Recommend a trial of decreasing the metoclopramide as tolerated. Recommend a trial of discontinuing the bedtime dose and and consider discontinuing the lunch dose. An alternative would be to obtain domperidone which can sometimes be obtained through a specialty pharmacy or through a [place] pharmacy. Care Goals: To of void abdominal pain and nausea and vomiting and to improve overall quality of life. Assessment: (1) DKA (diabetic ketoacidosis) Qualifiers: Diabetes mellitus type: due to underlying condition Diabetes mellitus complication detail: without coma Qualified Code(s): E08.10 - Diabetes mellitus due to underlying condition with ketoacidosis without coma Assessment/Plan: Resolved (2) N&V (nausea and vomiting) Conclusion/Plan: Nausea and vomiting continued intermittently throughout the day yesterday. Patient most likely has diabetic gastroparesis and treatment has been initiated with metoclopramide 5 mg 15 minutes before mealtime and at bedtime. Since initiating treatment with metoclopramide, patient's symptoms have resolved. Qualifiers: Vomiting type: unspecified Qualified Code(s): R11.2 - Nausea with vomiting, unspecified (3) Afib Conclusion/Plan: - monitor on telemetry -Continue Eliquis Qualifiers: Atrial fibrillation type: paroxysmal Qualified Code(s): I48.0 - Paroxysmal atrial fibrillation Stable (4) Coronary artery disease Conclusion/Plan: Continue losartan, amlodipine, hydralazine and apixaban.No issues at this time. (5) Hypokalemia Conclusion/Plan: Potassium is 3.8. (6)Diabetic gastroparesis Conclusion/Plan: Treatment initiated with metoclopramide 5 mg 15 minutes prior to meals and at bedtime. Patient counseled on side effects of metoclopramide. Patient should take no more than 12 weeks of treatment and should discuss treatment of diabetic gastroparesis with his primary care provider. All the above discussed with patient prior to discharge. No Smoking: If you smoke, Please STOP! Call for help. Follow-up with: Jaki Henderson MD [Primary Care Provider] -
--- NOTE | 2023-08-03 08:50 | DISCHARGE SUMMARY ---
Discharge Summary Admit Date: 07/30/23 Discharge Date: 08/03/23 Discharging Provider: Jossue Grant MD Primary Care Provider: Jaki Henderson Code Status: Attempt Resuscitation Condition at Discharge: Stable Discharge Disposition: 01 Home, Self Care - DIAGNOSES Admission Diagnoses: (1) Poorly controlled diabetes mellitus (2) N&V (nausea and vomiting) (3) Afib (4) Coronary artery disease (5) Noncompliance with medication regimen Discharge Diagnoses with Status of Each Condition: (1) DKA (diabetic ketoacidosis) (2) N&V (nausea and vomiting) (3) Afib (4) Coronary artery disease (5) Hypokalemia (6)Diabetic gastroparesis - HPI History of Present Illness: History of Present Illness per Dr. Chel Boyer's history and physical: Mr. Cueva presented to the ED for evaluation of persistent hyperglycemia, nausea and vomiting. Patient explained that he first experience these symptoms a week prior to his presentation. He denies any precipitating factors. He developed nausea and vomiting and noted that his blood glucose was running high, some readings in the upper 300s. He endorses compliance with his medication regimen, but he is unable to provide specific details. He stated that he is taking Lantus, Ozempic and sliding scale insulin. However despite this, he has been unable to control his blood sugar levels. In the ED, patient BG was greater than 300, bicarb 19, anion gap 16. After fluids, blood glucose level improved to mid 200s. patient was also given 10 units subQ regular insulin. During my evaluation. patient was alert and oriented. vitals stable and he was not in any acute distress.Patient will be admitted for further management. - HOSPITAL COURSE Hospital Course: Mr. Cueva was admitted to the hospital for treatment of mild diabetic ketoacidosis/poorly controlled diabetes. He was treated with fluid hydration and subcutaneous insulin. Throughout his hospitalization he continued complaint of nausea and vomiting. Treatment was initiated with Zofran and he underwent a trial of Compazine. Neither Zofran or Compazine relieved his symptoms. Patient's symptoms were consistent with diabetic gastroparesis and treatment was initiated with metoclopramide 5 mg 15 minutes before each meal and at bedtime. Since initiating the metoclopramide, his symptoms have resolved and he is stable for discharge. - ALLERGIES Allergies/Adverse Reactions: Allergies Allergy/AdvReac Type Severity Reaction Status Date / Time No Known Drug Allergies Allergy Verified 07/30/23 18:53 - MEDICATIONS Home Medications: Ambulatory Orders Medication Instructions Recorded Confirmed Tamsulosin [Flomax] 0.4 mg PO DAILY 06/09/19 07/30/23 Apixaban [Eliquis] 5 mg PO BID 01/24/21 07/30/23 Omeprazole 40 mg PO DAILY 01/24/21 07/30/23 Insulin Aspart [Novolog Flexpen] 2 - 12 unit SQ TIDWM 02/24/21 07/31/23 Insulin Glargine [Lantus Solostar] 70 units SUBQ QPM 02/24/21 07/30/23 Losartan [Cozaar] 100 mg PO DAILY 04/12/23 07/31/23 amLODIPine [Norvasc] 10 mg PO DAILY 04/12/23 07/31/23 Ondansetron Odt [Zofran Odt] 4 mg TL Q6H PRN #10 tablet 07/29/23 07/30/23 Semaglutide [Ozempic] 0.5 mg SUBQ OAW 07/31/23 07/31/23 Metoclopramide [Reglan] 5 mg PO ACHS #120 tab 08/03/23 - PHYSICAL EXAM AT DISCHARGE General Appearance: positive: No acute distress, Alert Eyes Bilateral: positive: Normal inspection Neck: positive: Thyroid nml, No JVD, Trachea midline Respiratory: positive: Other (Good air exchange in all lung philippe no wheezing no crackles.) Cardiovascular: positive: Other (Positive S1-S2 no extra heart sounds.) Abdomen: positive: Other (Positive S1-S2 no extra heart sounds.) Skin: positive: No rash Extremities: positive: No pedal edema Neurologic/Psychiatric: positive: Oriented x3, Motor nml - LABS Result Diagrams: 08/02/23 08:23 08/03/23 05:11 - FOLLOW UP Follow Up: Please follow-up with Jaki Henderson MD in 2-4 weeks. - TIME SPENT Time Spent in Discharge (Minutes): 32 (32 minutes spent coordinating discharge and counseling patient prior to discharge. )
== END 2023-08-03 12:02 | disposition home or self-care (01) | DRG 639 ==
LOC: ED 18:38 → MS2 22:08 → OBSVTOIN 07-31 15:06
PROVIDERS: ADMIT Hospitalist; ATTEND Internal Medicine
DX: E11.10 Type 2 diabetes mellitus with ketoacidosis without coma (principal); E86.0 Dehydration; R10.9 Unspecified abdominal pain; R11.2 Nausea with vomiting, unspecified; I25.10 Atherosclerotic heart disease of native coronary artery without angina pectoris; E87.6 Hypokalemia; E11.43 Type 2 diabetes mellitus with diabetic autonomic (poly)neuropathy; K31.84 Gastroparesis; F17.200 Nicotine dependence, unspecified, uncomplicated; Z79.01 Long term (current) use of anticoagulants; I10 Essential (primary) hypertension; E78.00 Pure hypercholesterolemia, unspecified; I25.2 Old myocardial infarction; G80.9 Cerebral palsy, unspecified; E11.42 Type 2 diabetes mellitus with diabetic polyneuropathy; K21.9 Gastro-esophageal reflux disease without esophagitis; H54.7 Unspecified visual loss; M19.90 Unspecified osteoarthritis, unspecified site; I48.0 Paroxysmal atrial fibrillation; Z79.4 Long term (current) use of insulin; Z79.84 Long term (current) use of oral hypoglycemic drugs; Z79.899 Other long term (current) drug therapy; Z80.9 Family history of malignant neoplasm, unspecified; Z83.3 Family history of diabetes mellitus; Z91.148 Patient's other noncompliance with medication regimen for other reason
CPT/HCPCS: 36415; 80048; 80053; 81001; 82009; 82803; 83690; 83735; 84100; 85025; 85027; 93005; 96361; 96365; 96366; 96375; 96376; 99284; 99285; A9270; G0378; J1815; 81003; 87086

== ENCOUNTER 2023-08-06 17:13 | Outpatient (CLI) | payer MEDICARE ==
--- NOTE | 2023-08-06 18:18 | Ultrasound Report ---
PROCEDURE: Duplex Ext Veins Right INDICATIONS: LOWER EXTREMITY EDEMA TECHNIQUE: Real-time imaging, as well as color and pulse Doppler interrogation, were performed of the lower extr emity deep veins from the inguinal ligament to the popliteal fossa. Attempted visualization of the ca lf veins was performed. COMPARISON: None. FINDINGS: The deep veins are normally compressible, and free of intraluminal thrombus. Color and pu lse Doppler demonstrate normal phasic intraluminal flow. There is normal augmentation response to di stal compression maneuver. Calf veins not well seen due to edema. IMPRESSION: No deep venous thrombosis of the visualized lower extremity. Reviewed by: Jeff Gillette MD on 08/06/2023 6:17 PM PDT Approved by: Jeff Gillette MD on 08/06/2023 6:17 PM PDT Station ID: [id number]
== END 2023-08-06 17:14 | disposition home or self-care (01) ==
LOC: DI 17:13
PROVIDERS: ATTEND Physician Assistant Medical
DX: R60.0 Localized edema (principal); S30.0XXA Contusion of lower back and pelvis, initial encounter

== ENCOUNTER 2023-09-08 11:48 | Outpatient (CLI) | payer MEDICARE ==
[2023-09-08 15:07] LABS: BASOPHILS % (AUTO) 0.4 %; EOSINOPHILS # (AUTO) 0.1 10^3/uL (0.0-0.7); EOSINOPHILS % (AUTO) 1.2 %; HCT - HEMATOCRIT 43.9 % (42.0-52.0); HGB - HEMOGLOBIN 14.9 g/dL (14.0-18.0); LYMPHOCYTES # (AUTO) 0.9 10^3/uL (1.5-3.5); LYMPHOCYTES % (AUTO) 17.6 %; MEAN CORPUSCULAR HGB CONC 33.9 g/dL (32.0-36.0); MEAN CORPUSCULAR VOLUME 94.2 fL (80.0-94.0); MEAN PLATELET VOLUME 10.5 fL (7.4-11.4); MONOCYTES # (AUTO) 0.4 10^3/uL (0.0-1.0); NEUTROPHILS # (AUTO) 3.7 10^3/uL (1.5-6.6); NEUTROPHILS % (AUTO) 72.6 %; PLT - PLATELET COUNT 251 10^3/uL (130-450); RED BLOOD COUNT 4.66 10^6/uL (4.70-6.10); WHITE BLOOD COUNT 5.1 x10^3/uL (4.8-10.8)
[2023-09-08 15:32] LABS: ALBUMIN 4.1 g/dL (3.2-5.5); ALBUMIN/GLOBULIN RATIO 1.5 (1.0-2.2); BILIRUBIN,TOTAL 0.5 mg/dL (0.2-1.0); CALCIUM 9.4 mg/dL (8.5-10.3); CREATININE 1.1 mg/dL (0.6-1.3); POTASSIUM 4.1 mmol/L (3.5-4.5); TOTAL PROTEIN 6.9 g/dL (6.4-8.9)
[2023-09-08 21:24] LABS: ESTIMATED AVERAGE GLUCOSE 148 mg/dL (70-100); HEMOGLOBIN A1c% 6.8 % (4.27-6.07)
== END 2023-09-08 11:49 | disposition home or self-care (01) ==
LOC: LAB.S 11:48
PROVIDERS: ATTEND Internal Medicine
DX: E11.9 Type 2 diabetes mellitus without complications (principal)
CPT/HCPCS: 36415; 80053; 83036; 85025

== ENCOUNTER 2023-12-08 11:23 | Outpatient (CLI) | payer MEDICARE ==
[2023-12-08 14:43] LABS: BASOPHILS % (AUTO) 0.4 %; EOSINOPHILS # (AUTO) 0.1 10^3/uL (0.0-0.7); EOSINOPHILS % (AUTO) 0.9 %; HCT - HEMATOCRIT 47.4 % (42.0-52.0); HGB - HEMOGLOBIN 16.2 g/dL (14.0-18.0); LYMPHOCYTES # (AUTO) 1.2 10^3/uL (1.5-3.5); LYMPHOCYTES % (AUTO) 22.1 %; MEAN CORPUSCULAR HEMOGLOBIN 31.5 pg (27.0-31.0); MEAN CORPUSCULAR HGB CONC 34.2 g/dL (32.0-36.0); MEAN PLATELET VOLUME 10.8 fL (7.4-11.4); MONOCYTES # (AUTO) 0.5 10^3/uL (0.0-1.0); MONOCYTES % (AUTO) 8.9 %; NEUTROPHILS # (AUTO) 3.8 10^3/uL (1.5-6.6); NEUTROPHILS % (AUTO) 67.5 %; PLT - PLATELET COUNT 304 10^3/uL (130-450); RED BLOOD COUNT 5.15 10^6/uL (4.70-6.10); RED CELL DISTRIBUTION WIDTH 12.1 % (12.0-15.0); WHITE BLOOD COUNT 5.6 x10^3/uL (4.8-10.8)
[2023-12-08 15:44] LABS: THYROID STIMULATING HORMONE 3.67 uIU/mL (0.34-5.60)
[2023-12-08 15:55] LABS: ALBUMIN 4.1 g/dL (3.2-5.5); ALBUMIN/GLOBULIN RATIO 1.9 (1.0-2.2); BILIRUBIN,TOTAL 0.9 mg/dL (0.2-1.0); CREATININE 1.4 mg/dL (0.6-1.3); POTASSIUM 4.1 mmol/L (3.5-4.5); TOTAL PROTEIN 6.3 g/dL (6.4-8.9)
[2023-12-08 19:58] LABS: ESTIMATED AVERAGE GLUCOSE 163 mg/dL (70-100); HEMOGLOBIN A1c% 7.3 % (4.27-6.07)
== END 2023-12-08 11:24 | disposition home or self-care (01) ==
LOC: LAB.S 11:23
PROVIDERS: ATTEND Registered Nurse
DX: R42 Dizziness and giddiness (principal); R51.9 Headache, unspecified; E10.9 Type 1 diabetes mellitus without complications
CPT/HCPCS: 36415; 80053; 83036; 84443; 85025

== ENCOUNTER 2023-12-17 15:55 | Outpatient (CLI) | payer MEDICARE ==
--- NOTE | 2023-12-17 17:03 | CT Report ---
PROCEDURE: Head WO INDICATIONS: DIZZY, HEADACHE TECHNIQUE: Noncontrast 4.5 mm thick angled axial sections acquired from the foramen magnum to the vertex. For r adiation dose reduction, the following was used: automated exposure control, adjustment of mA and/or kV according to patient size. COMPARISON: None. FINDINGS: Image quality: Excellent. CSF spaces: Basal cisterns are patent. No extra-axial fluid collections. Ventricles are normal in size and shape. Brain: No midline shift. No intracranial masses or hemorrhage. Clay-white matter interface is norm al. Skull and face: Calvarium and visualized facial bones are intact, without suspicious lesions. Sinuses: Visualized sinuses and mastoids are clear. IMPRESSION: No acute intracranial pathology. Reviewed by: Marcelino Alberts MD on 12/17/2023 5:01 PM PDT Approved by: Marcelino Alberts MD on 12/17/2023 5:01 PM PDT Station ID: [id number]
== END 2023-12-17 15:56 | disposition home or self-care (01) ==
LOC: DI 15:55
PROVIDERS: ATTEND Registered Nurse
DX: R42 Dizziness and giddiness (principal); R51.9 Headache, unspecified; E10.9 Type 1 diabetes mellitus without complications

== ENCOUNTER 2024-05-18 02:13 | Inpatient (IN) ==
[2024-05-18 03:17] LABS: BASOPHILS % (AUTO) 0.2 %; HCT - HEMATOCRIT 51.1 % (42.0-52.0); LYMPHOCYTES # (AUTO) 0.5 10^3/uL (1.5-3.5); LYMPHOCYTES % (AUTO) 5.6 %; MEAN CORPUSCULAR HEMOGLOBIN 31.6 pg (27.0-31.0); MEAN CORPUSCULAR HGB CONC 35.2 g/dL (32.0-36.0); MEAN CORPUSCULAR VOLUME 89.6 fL (80.0-94.0); MEAN PLATELET VOLUME 9.9 fL (7.4-11.4); MONOCYTES # (AUTO) 0.3 10^3/uL (0.0-1.0); NEUTROPHILS # (AUTO) 8.1 10^3/uL (1.5-6.6); NEUTROPHILS % (AUTO) 90.7 %; PLT - PLATELET COUNT 265 10^3/uL (130-450); RED CELL DISTRIBUTION WIDTH 12.3 % (12.0-15.0); WHITE BLOOD COUNT 8.9 x10^3/uL (4.8-10.8)
[2024-05-18 03:30] LABS: ALBUMIN 5.1 g/dL (3.2-5.5); BILIRUBIN,TOTAL 1.7 mg/dL (0.2-1.0); CALCIUM 9.9 mg/dL (8.5-10.3); POTASSIUM 3.5 mmol/L (3.5-4.5); TOTAL PROTEIN 7.7 g/dL (6.4-8.9)
--- NOTE | 2024-05-18 03:36 | ED Physician Documentation ---
PD HPI NVD Stated complaint Stated Complaint: VOMITING Chief complaint Chief Complaint: Abd Pain Additonal information Additional information: HPI from patient. Patient complains of nausea and vomiting since 9 PM tonight. Since the onset of the nausea and vomiting, the patient says he has not been able to tolerate any p.o. intake including sips of liquid nor even the dissolvable Zofran that he has at home. Patient denies any pain including abdominal pain. She has not noticed any blood in the vomitus nor coffee-ground emesis. Denies diarrhea. Patient says he has had similar episodes in the past and sometimes has required admission to [facility] inpatient for intractable vomiting. Meds/Allgy Home Medications Ambulatory Orders Medication Instructions Recorded Confirmed tamsulosin 0.4 mg capsule 0.4 mg PO DAILY 06/09/19 05/18/24 omeprazole 40 mg capsule,delayed 40 mg PO DAILY 01/24/21 05/18/24 release blood-glucose transmitter (Dexcom #1 ea 04/02/24 04/06/24 G6 Transmitter device) insulin aspart U-100 100 unit/mL 2 - 12 unit (0.02 - 0.12 mL) 04/02/24 05/18/24 (3 mL) subcutaneous pen (Novolog subcut TIDWM #15 mL FlexPen U-100 Insulin aspart) insulin glargine 100 unit/mL (3 70 unit (0.7 mL) subcut QPM #15 mL 04/02/24 05/18/24 mL) subcutaneous pen (Lantus Solostar U-100 Insulin) semaglutide 2 mg/dose (8 mg/3 mL) 2 mg (0.75 mL) subcut QWEEK #12 mL 04/02/24 05/18/24 subcutaneous pen injector (Ozempic) amlodipine 10 mg tablet 10 mg PO QDAY 04/06/24 05/18/24 ondansetron 4 mg disintegrating 4 mg PO QDAY 04/06/24 05/18/24 tablet blood-glucose sensor (Dexcom G7 #1 ea 04/17/24 Sensor device) Allergies Allergies Allergy/AdvReac Type Severity Reaction Status Date / Time No Known Drug Allergies Allergy Verified 05/18/24 02:28 PFSH Active Problems All Active Problems (Updated 05/18/24 @ 08:55 by Earl Cohen MD) Intractable vomiting (Acute) Corns and callosities (Acute) Type 2 diabetes mellitus with diabetic neuropathy, unspecified (Acute) Diabetes mellitus type 1 (Acute) Peripheral neuropathy (Acute) Diabetic foot ulcer (Acute) DKA (diabetic ketoacidosis) (Acute) Gastroparesis diabeticorum (Chronic) KI (acute kidney injury) (Acute) Hx of coronary artery disease (Acute) Cannabis misuse (Acute) Afib (Chronic) N&V (nausea and vomiting) (Chronic) Hyperlipidemia (Chronic) Hypertension (Chronic) BPH (benign prostatic hyperplasia) (Chronic) GERD (gastroesophageal reflux disease) (Chronic) Hypertension, uncontrolled (Chronic) Anxiety (Chronic) Newly recognized murmur (Chronic) Hypokalemia due to inadequate potassium intake (Chronic) Diabetes (Chronic) IDDM (insulin dependent diabetes mellitus) (Chronic) Coronary artery disease (Chronic) Anemia (Chronic) Vomiting (Acute) Leukocytosis (Acute) Poorly controlled diabetes mellitus (Chronic) History of deep vein thrombosis (Chronic) Hyperglycemia (Chronic) Cannabis use disorder, moderate, dependence (Chronic) Surgical History Surgical History (Updated 04/06/24 @ 15:09 by Elham Valadez MA) H/O skin graft RIGHT LATERAL FOOT Amputation of fifth toe of right foot History of amputation of fourth toe RIGHT Social History Social History Smoking Status: Never smoker If you are a former smoker, when did you quit? (Date/Year): n/a Number of Years Smoked: 0 How many cigarettes a day do you smoke? (20 cigarettes=1 Pk): 0 Do you dip or chew tobacco?: No Patient requests smoking cessation consult: No Initiate information on smoking cessation: No Living arrangement: At home Living Condition: Alone Relationship: Level: Independent Home Mobility Equipment: Cane Do you feel safe in your home environment?: Yes Suffered physical, verbal, emotional, or financial abuse?: No History of Abuse: No POLST Patient has POLST: No POLST Status: Full Code Exam Constitutional normal general appearance, no apparent distress and alert awake, answers to my questions suggest he is alert and following discussion but he does not open eyes for nearly the entire encounter except when I ask him to (for purposes of exam) HENMT oral mucous membranes abnormal tacky mucous membranes Respiratory breath sounds equal bilaterally and clear to auscultation bilaterally Cardiovascular heart rate abnormal (tachycardic), regular rhythm noted, no gallop, no rub and no murmur Gastrointestinal abdomen soft to palpation, nontender to palpation, nondistended and normoactive bowel sounds Genitourinary no CVA tenderness Psychiatry mental status grossly normal, oriented x3, thought process normal and cooperative Skin skin color normal Results Vitals Vitals: Vital Signs - 24 hr 05/18/24 02:25 05/18/24 03:33 05/18/24 05:02 Temperature 36.0 C L Temperature Source Temporal Artery Scan Pulse Rate 121 H 114 H 115 H Respiratory Rate 20 20 20 Blood Pressure 209/122 H 167/127 H O2 Saturation 100 99 99 O2 Source Room air Room air Room air If not protocol: Oxygen Flow, liters/minute Pain Intensity 0 05/18/24 07:00 05/18/24 07:34 05/18/24 08:05 Temperature Temperature Source Pulse Rate 120 H 124 H 101 H Respiratory Rate 20 14 Blood Pressure 172/114 H 201/126 H 110/72 O2 Saturation 95 96 88 L O2 Source Room air Room air Room air If not protocol: Oxygen Flow, liters/minute Pain Intensity 3 0 05/18/24 08:18 05/18/24 08:25 05/18/24 08:30 Temperature Temperature Source Pulse Rate 103 H 103 H 102 H Respiratory Rate 16 14 Blood Pressure 99/63 96/62 101/66 O2 Saturation 86 L 90 L O2 Source Nasal cannula Nasal cannula If not protocol: Oxygen Flow, liters/minute 2 1 Pain Intensity 0 05/18/24 08:45 Temperature Temperature Source Pulse Rate 105 H Respiratory Rate 14 Blood Pressure 91/64 O2 Saturation 97 O2 Source Nasal cannula If not protocol: Oxygen Flow, liters/minute 1 Pain Intensity 0 Oxygen O2 Source Nasal cannula Labs Labs: Laboratory Tests 05/18/24 05/18/24 03:05 04:20 WBC 8.9 RBC 5.70 Hgb 18.0 Hct 51.1 MCV 89.6 MCH 31.6 H MCHC 35.2 RDW 12.3 Plt Count 265 MPV 9.9 Neut # (Auto) 8.1 H Lymph # (Auto) 0.5 L [place] # (Auto) 0.3 Eos # (Auto) 0.0 Baso # (Auto) 0.0 Absolute Nucleated RBC 0.00 Nucleated RBC % 0.0 VBG pH 7.411 H VBG pCO2 30.9 L VBG pO2 91.1 H VBG HCO3 19.8 L VBG Total CO2 20.8 L VBG O2 Saturation 97.0 H VBG Base Excess -5.0 L Sodium 136 Potassium 3.5 Chloride 99 L Carbon Dioxide 22 Anion Gap 15.0 H BUN 16 Creatinine 1.0 Estimated GFR (MDRD) 74 L Glucose 287 H Calcium 9.9 Total Bilirubin 1.7 H AST 15 ALT 14 Alkaline Phosphatase 81 Total Protein 7.7 Albumin 5.1 Globulin 2.6 Albumin/Globulin Ratio 2.0 Lipase 56 Serum Ketones NEGATIVE PD Medical Decision Making ED course Complexity details: reviewed old records, reviewed results, re-evaluated patient, considered differential and d/w patient ED course: No concerning or diagnostic findings on CBC. ER abdominal panel is mostly unremarkable; notable exceptions are hyperglycemia (glucose 287), hyperbili rubinemia (bilirubin 1.7) although the remainder of LFTs are all normal as well as a normal lipase. Preserved renal function (BUN 16, creatinine 1.0), mildly low GFR (74). Normal sodium, potassium, bicarb (chloride flagged as low, 99). Patient had already been given 4 mg IV Zofran shortly after arrival but prior to my evaluation of the patient. I discussed the test results with him. He says he still is having significant nausea and vomiting, and I did hear him vomiting in the bathroom just before this evaluation. I explained to him that we would be giving him IV fluids and we will move onto a different antinausea medication, specifically Reglan/metoclopramide. I explained to him that the discharge summary from his inpatient stay last year ([facility]) indicated that Zofran and Compazine did not seem to help with his nausea/vomiting during his inpatient stay but that Reglan seem to work very well for him. Patient tells me regardless of what antinausea medication or fluids I give to him, he wishes to be admitted to the hospital at this time. In our subsequent discussion, I explained to him that we would need to try some more interventions before considering admitting him to the hospital, particularly in light of the unremarkable blood test obtained thus far. He continues to insist he needs to be admitted to the inpatient setting, says that when he is sent home from the emergency department for the symptoms he invariably needs to return and then be admitted to the hospital. I again reviewed with him the need for more intervention before I would be able to justify the admission to the hospital, but I also (re)explained to him that it is possible he will end up needing inpatient treatment but this has to be based on test results and his reaction to more intervention (specifically IV fluids and more anti-nausea medications). he is given total of 2 liters NS during ED stay. He is also given 2.5mg IV droperidol after he continued to have vomiting subsequent to IV reglan. Unfortunately, he continued to have (witnessed) vomiting after the 2 liters NS IV and the zofran, reglan, and droperidol. He tells me he feels mildly improved but continues to have nausea and vomiting. At this point it is appropriate to admit for ongoing IV fluids, PRN antinauseants. I discussed this case with Dr. Dawson (hospitalist for [facility]) who accepts to hospitalist service. He is given 20mg IV labetalol for consistent significantly high BP readings (200s-220s / 110s-130s); this resulted in unexpected rapid drop in BP with readings (90s-110s / 60s-70s). He was also having consistent tachycardia 120s despite IV fluids but heart rates dropped to 100s-110s after the labetalol. Discharge Plan Discharge Patient Disposition: [facility] DC/Xfer Clinical Impression: Intractable vomiting, Hyperglycemia Prescriptions: No Action (DME) Dexcom G6 Transmitter Device See Rx Instructions .Route Qty: 1 3RF Rx Instructions: As directed Ozempic 2 mg/dose (8 mg/3 mL) pen injector 2 mg subcut QWEEK Qty: 12 3RF insulin aspart U-100 [Novolog FlexPen U-100 Insulin] 100 unit/mL (3 mL) insulin pen 2 - 12 unit subcut TIDWM Qty: 15 6RF insulin glargine [Lantus Solostar U-100 Insulin] 100 unit/mL (3 mL) insulin pen 70 unit subcut QPM Qty: 15 3RF (DME) Dexcom G7 Sensor Device See Rx Instructions .Route Qty: 1 3RF Rx Instructions: As directed tamsulosin 0.4 MG capsule 0.4 mg PO DAILY omeprazole 40 MG capsule,delayed release(DR/EC) 40 mg PO DAILY amlodipine 10 mg tablet 10 mg PO QDAY Rx Instructions: Take 1 tablet by mouth once a day ondansetron 4 mg tablet,disintegrating 4 mg PO QDAY Rx Instructions: Dissolve 1 tablet by mouth every six to eight hours as needed for nausea for nausea Print Language: Thai
[2024-05-18] MEDS: ONDANSETRON 4 MG/2 ML VIAL IVP STA (03:43)
[2024-05-18 04:37] LABS: VBG PCO2 30.9 mmHg (41-51); VBG PH 7.411 (7.31-7.41); VBG PO2 91.1 mmHg (25-47); VBG TOTAL CO2 20.8 mmol/L (24-29)
[2024-05-18] MEDS: SODIUM CHLORIDE 0.9% 1,000 ML IV STA ×2 (04:40→06:13)
[2024-05-18] MEDS: METOCLOPRAMIDE 10 MG/2 ML VIAL IVP STA (04:41)
[2024-05-18] MEDS: droPERidol 2.5 MG/ML VIAL IVP STA (06:13)
[2024-05-18] MEDS: LABETALOL 20 MG/4 ML SYRINGE IVP STA (08:01)
--- NOTE | 2024-05-18 09:00 | HISTORY & PHYSICAL EXAMINATION ---
<Statement entered by Kameron Dawson MD - 05/18/24 17:50> I have seen the patient independently along with the PA student and agree with the assessment and plan. Chief Complaint Chief Complaint Chief Complaint: vomiting History of Present Illness Admitted From Admitted From:: Emergency Department History Obtained From History obtained from: Self History of Present Illness HPI Comment/Other: Mr. Cueva is a 68-year-old male with history of poorly controlled diabetes mellitus, coronary artery disease, and hypertension who presents with 12 hours of intractable vomiting. He reports vomiting began at 9pm last night, and his most recent episode was 30 minutes prior to this conversation (estimated 9:30am). He has had similar episodes in the past due to cannabis use which resolved with sustained cannabis abstinence, however he has returned to daily marijuana smoking because he enjoys it. He states this feels very similar to those prior episodes. He is laying on his back with head elevated. He kept his eyes closed for the majority of this conversation however he did briefly open his eyes and make eye contact upon my arrival and once or twice while talking to me. He is willing to answer questions however questions regarding medical history, current symptoms, and medication appear frustrating to him, as shown by sighing, shaking his head, and mumbling responses, often requesting we review his record or find his doctor to ask instead of asking him. He often responds quickly with "I don't know", but will sometimes follow with an informative response shortly after. Due to these limitations, gathering history was difficult. His current complaints include vomiting and chronic constipation. He states he initially was vomiting "whole foods", then "petered out" and for the past few hours has been vomiting the "inner lining of the stomach". He reports emesis is light brown. He denies coffee ground emesis, bright red blood, or foaming. He reports chronic constipation related to his medications. His last bowel movement was yesterday. He initially describes it as "different" and "not normal", but when asked to explain, he said it was a normal bowel movement. He uses Smooth Move Tea daily. He denies headache, recent viral illness, abdominal pain or cramping, bloating, chest pain, shortness of breath, cough, new back pain, dysuria, diarrhea. He admits to smoking marijuana daily and states he quit yesterday due to vomiting, he thinks his last use was 2 days ago (2/18/25) but he is unsure. He denies using edible marijuana. He denies any prior tobacco use or illicit drug use. He admits to "sometimes" drinking alcohol, he is unsure of how much, how often, or what type of alcohol. He denies any prior period in his life in which he was a daily or heavy drinker. He denies ever having withdrawal symptoms from drugs or alcohol. He confirms medical history of diabetes mellitus but is unsure if it is type 1 or type 2 (both are listed in chart) and he is unsure of when or how he was diagnosed. He reports prior heart attack and surgery to implant a stent in his heart, unsure of date. Prior surgical history includes appendectomy (age 20 approximately), heart surgery for stent placement, and removal of toes due to diabetic complications. He denies any other prior abdominal procedures. He reports taking both long acting and short acting insulin, Ozempic, Tamsulosin, and Zofran (PRN). He states he takes a heart medication but is unsure what it is called or what it specifically is for (Amlodipine is listed in chart, he does not know if he takes this). He states he does not know names of medications and that it is in the records. He states he takes "many" medications, including some that I did not read from the EMR list, but he does not know what they are for, what they are called, or how often he takes them. He is unsure if he takes any OTC medications at this time. He does not think he is currently taking Omeprazole. He states that he does check blood sugar levels at home, and they are "not terrible", he is unable to recall recent numbers or range of home readings. He lives alone in his house with no pets. He reports he manages his medications and health conditions completely by himself, is fully functional with ADLs and requires no assistance of any kind. 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 His hobbies include photography and digital editing. He is one of 7 children and reports some siblings are alive, some are , some had/have cancers, and some have diabetes. His mother at age 102 of old age, his father at age 70 due to cancer of the stomach. He has two adult children. His son "seems healthy" and his daughter is having surgery at the end of this month to remove "something" from her thyroid. Meds/Allgy Home Medications Ambulatory Orders Medication Instructions Recorded Confirmed tamsulosin 0.4 mg capsule 0.4 mg PO DAILY 06/09/19 05/18/24 omeprazole 40 mg capsule,delayed 40 mg PO DAILY 01/24/21 05/18/24 release blood-glucose transmitter (Dexcom #1 ea 04/02/24 04/06/24 G6 Transmitter device) insulin aspart U-100 100 unit/mL 2 - 12 unit (0.02 - 0.12 mL) 04/02/24 05/18/24 (3 mL) subcutaneous pen (Novolog subcut TIDWM #15 mL FlexPen U-100 Insulin aspart) insulin glargine 100 unit/mL (3 70 unit (0.7 mL) subcut QPM #15 mL 04/02/24 05/18/24 mL) subcutaneous pen (Lantus Solostar U-100 Insulin) semaglutide 2 mg/dose (8 mg/3 mL) 2 mg (0.75 mL) subcut QWEEK #12 mL 04/02/24 05/18/24 subcutaneous pen injector (Ozempic) amlodipine 10 mg tablet 10 mg PO QDAY 04/06/24 05/18/24 blood-glucose sensor (Dexcom G7 #1 ea 04/17/24 Sensor device) apixaban 5 mg tablet (Eliquis) 5 mg PO BID 05/18/24 05/18/24 Allergies Allergies Allergy/AdvReac Type Severity Reaction Status Date / Time No Known Drug Allergies Allergy Verified 05/18/24 02:28 [facility] Active Problems All Active Problems (Updated 05/18/24 @ 15:35 by Sharmaine Cho) Type 2 diabetes mellitus with diabetic neuropathy, unspecified (Acute 07/23/21) Hypertension (Acute 06/02/23) GERD (gastroesophageal reflux disease) (Acute 10/16/20) BPH (benign prostatic hyperplasia) (Acute 04/18/19) Atrial fibrillation (Acute 06/07/20) Type 2 diabetes mellitus (Acute 04/17/22) Orthostatic hypotension (Acute 07/15/20) Lumbar spondylitis (Acute 12/01/22) Hypertension, essential, benign (Acute 04/18/19) Hyperemesis (Acute 07/01/22) History of non-ST elevation myocardial infarction (NSTEMI) (Acute 11/17/19) Glaucoma (Acute 04/18/19) Diabetic nephropathy (Acute 03/25/23) Diabetes mellitus, type II (Acute 10/16/20) Intractable vomiting (Acute) Corns and callosities (Acute) Type 2 diabetes mellitus with diabetic neuropathy, unspecified (Acute) Diabetes mellitus type 1 (Acute) Peripheral neuropathy (Acute) Diabetic foot ulcer (Acute) DKA (diabetic ketoacidosis) (Acute) Gastroparesis diabeticorum (Chronic) KI (acute kidney injury) (Acute) Hx of coronary artery disease (Acute) Cannabis misuse (Acute) Afib (Chronic) N&V (nausea and vomiting) (Chronic) Hyperlipidemia (Chronic) Hypertension (Chronic) BPH (benign prostatic hyperplasia) (Chronic) GERD (gastroesophageal reflux disease) (Chronic) Hypertension, uncontrolled (Chronic) Anxiety (Chronic) Newly recognized murmur (Chronic) Hypokalemia due to inadequate potassium intake (Chronic) Diabetes (Chronic) IDDM (insulin dependent diabetes mellitus) (Chronic) Coronary artery disease (Chronic) Anemia (Chronic) Vomiting (Acute) Leukocytosis (Acute) Poorly controlled diabetes mellitus (Chronic) History of deep vein thrombosis (Chronic) Hyperglycemia (Chronic) Cannabis use disorder, moderate, dependence (Chronic) Medical History Medical History (Updated 05/18/24 @ 15:35 by Sharmaine Cho) Pulmonary embolism (06/07/20) Diabetic foot ulcer (04/02/22) Diabetic foot ulcer (04/18/19) Diabetic foot ulcer (04/03/22) Wound infection (10/08/21) Weight gain (06/02/23) Vertebrogenic low back pain (12/01/22) Impingement syndrome, shoulder, left (07/01/22) Non-pressure chronic ulcer of other part of left foot with bone involvement without evidence of necrosis (12/18/19) Edema of right lower extremity (07/30/23) Leg length discrepancy (09/24/22) Hypoglycemia (04/18/19) Hx of diabetic foot ulcer (07/01/22) Arthralgia of hip (09/24/22) Hematemesis (10/16/20) Physical deconditioning (11/27/21) Contusion of right hip, initial encounter (02/20/23) Contusion of lower back (02/20/23) Cellulitis of foot, left (07/30/21) Ataxia (07/23/21) Surgical History Surgical History H/O skin graft RIGHT LATERAL FOOT Amputation of fifth toe of right foot History of amputation of fourth toe RIGHT Family History Family History (Updated 05/18/24 @ 11:17 by Sharmaine Cho) Mother No problems noted. Father Cancer Daughter Thyroid disorder Social History Social History Smoking Status: Never smoker If you are a former smoker, when did you quit? (Date/Year): n/a Number of Years Smoked: 0 How many cigarettes a day do you smoke? (20 cigarettes=1 Pk): 0 Do you dip or chew tobacco?: No Patient requests smoking cessation consult: No Initiate information on smoking cessation: No Living arrangement: At home Living Condition: Alone Relationship: Level: Independent Home Mobility Equipment: Cane Do you feel safe in your home environment?: Yes Suffered physical, verbal, emotional, or financial abuse?: No History of Abuse: No Substance Use: cannabis (any form) POLST Patient has POLST: No POLST Status: Full Code Review of Systems Status of ROS: 10 or more systems reviewed and unremarkable except as noted in history and below and See HPI (difficult to obtain history due to limited patient participation ) Gastrointestinal Reports: Vomiting Prior Level of Functionality: Fully functional with no assistance required Exam Exam Patient is laying supine in bed with head elevated. He keeps his eyes closed throughout the conversation but did open eyes briefly and make eye contact with me upon my entry. Constitutional normal general appearance, no apparent distress, abnormal body habitus (obese) and alert HENMT normocephalic Eyes PERRL Neck/C-Spine visual inspection normal Lymph no lymphadenopathy noted Chest inspection of chest normal and palpation of chest normal Respiratory breath sounds equal bilaterally and clear to auscultation bilaterally Cardiovascular normal heart rate noted, murmur noted (II/) and no JVD Gastrointestinal abdomen normal to inspection, abdomen soft to palpation, nontender to palpation, nondistended and normoactive bowel sounds Extremities normal to inspection Neurology php developer II-XII intact and no movement abnormality noted Psychiatry oriented x3 and uncooperative Skin skin color normal Conclusion/Plan Problem List (1) Intractable vomiting: Plan: He has had multiple episodes of vomiting since last night 9:00 pm. No coffee ground emesis or bright red blood, abdominal pain or cramping, recent illness. He has had similar episodes of intractable vomiting in the past which have resolved after marijuana abstinence and feels this is similar. He last smoked marijuana 2 days ago. Last emesis episode about 9:30am this morning. Currently electrolytes are stable, potassium at 3.5. - We will repeat BMP daily and continue IV fluids. (2) Hypertension: Plan: Chronic hypertension managed with Amlodipine. Baseline BP and last dose of home medication is unknown. He was hypertensive at ED entry to over 200 systolic and over 120 diastolic. He was given IV labetalol 20mg with rapid decrease in BP, now his BP has increased back up to 147/90 upon inpatient admission. - We will restart home Amlodipine. Qualifiers: Hypertension type: essential hypertension (3) Type 2 diabetes mellitus with diabetic neuropathy, unspecified: Plan: History of poorly controlled diabetes mellitus, unsure of his typical glucose values. Blood sugar level 287, serum ketones negative. - We will start sliding scale insulin and regular blood glucose checks. Qualifiers: Diabetes mellitus jail insulin use: with medical terminologist use Qualified Code(s): E11.40 - Type 2 diabetes mellitus with diabetic neuropathy, unspecified; Z79.4 - senior living (current) use of insulin (4) Afib: Plan: History of atrial fibrillation. Normal sinus rhythm on EKG and telemetry today. He is rate controlled despite not having any intervention while here. He does not take any rate controlling home medication. -We will continue home medication, Apixaban 5mg. Qualifiers: Atrial fibrillation type: paroxysmal Qualified Code(s): I48.0 - Paroxysmal atrial fibrillation (5) History of deep vein thrombosis: Plan: - DVT prophylactic device ordered - SCD - We will continue home Apixaban 5mg. Lab Results Lab results reviewed: Yes 05/18/24 03:05 05/18/24 03:05 EKG Results EKG Interpreted Independently: Yes EKG Findings: sinus tachycardia with PAC. Mild ST depression seen in leads V5, V6. Core Measures Anticipated LOS I expect patient to be DC'd or transferred within 96 hours.: Yes DVT/VTE - Prophylaxis VTE/DVT Device ordered at admit?: Yes VTE/DVT Prophylaxis med ordered at admit?: No Not Ordered - Medical Reason: Not indicated
[2024-05-18] MEDS ORDERED: oxyCODONE 5 MG TABLET PO PRN (09:52)
[2024-05-18] MEDS ORDERED: SODIUM CHLORIDE FLUSH 0.9% 10 ML SYRINGE IVP PRN (09:52)
[2024-05-18] MEDS ORDERED: ACETAMINOPHEN 325 MG TABLET PO PRN (09:52)
[2024-05-18] MEDS: SODIUM CHLORIDE 0.9% 1,000 ML IV SCH (10:18)
[2024-05-18] MEDS: TAMSULOSIN 0.4 MG CAPSULE PO SCH (11:13)
[2024-05-18] MEDS: amLODIPine 5 MG TABLET PO SCH (11:13)
--- NOTE | 2024-05-18 15:43 | PHARMACY PROGRESS NOTE ---
Best Possible Medication History Admit Date and Time: 05/18/24 [id number] Home Medications Medication Instructions Recorded Confirmed Type tamsulosin 0.4 mg capsule 0.4 mg PO DAILY 06/09/19 05/18/24 History omeprazole 40 mg capsule,delayed 40 mg PO DAILY 01/24/21 05/18/24 History release blood-glucose transmitter (Dexcom #1 ea 04/02/24 04/06/24 Rx G6 Transmitter device) insulin aspart U-100 100 unit/mL 2 - 12 unit (0.02 - 0.12 mL) 04/02/24 05/18/24 Rx (3 mL) subcutaneous pen (Novolog subcut TIDWM #15 mL FlexPen U-100 Insulin aspart) insulin glargine 100 unit/mL (3 70 unit (0.7 mL) subcut QPM #15 mL 04/02/24 05/18/24 Rx mL) subcutaneous pen (Lantus Solostar U-100 Insulin) semaglutide 2 mg/dose (8 mg/3 mL) 2 mg (0.75 mL) subcut QWEEK #12 mL 04/02/24 05/18/24 Rx subcutaneous pen injector (Ozempic) amlodipine 10 mg tablet 10 mg PO QDAY 04/06/24 05/18/24 History blood-glucose sensor (Dexcom G7 #1 ea 04/17/24 Rx Sensor device) apixaban 5 mg tablet (Eliquis) 5 mg PO BID 05/18/24 05/18/24 History Processed by: Pharmacy Medications reviewed in ED?: Yes Medication History completed: Yes Patient Interview: Completed Secondary Source(s): Pharmacy records and Insurance records [facility] Statement: As the person ultimately responsible for medication therapy, providers are able to order a medication from an existing home medication list in [facility] via the "Reconcile Routine" prior to Confirmation of that medication by computer technical support specialist. Such practice is discouraged except when the physician, in their clinical judgment, deems that a medical need exists for a medication without regard to previous use.
[2024-05-18] MEDS: SODIUM CHLORIDE FLUSH 0.9% 10 ML SYRINGE IVP SCH (16:16)
[2024-05-18 19:28] LABS: BILIRUBIN,URINE SMALL (NEGATIVE); GLUCOSE, URINE (UA) >=1000 mg/dL (NEGATIVE); KETONES,URINE (UA) >=80 mg/dL (NEGATIVE); LEUKOCYTE ESTERASE, URINE NEGATIVE (NEGATIVE); NITRITE,URINE NEGATIVE (NEGATIVE); OCCULT BLOOD,URINE TRACE-INTA (NEGATIVE); PH,URINE 5.5 PH (5.0-7.5); PROTEIN,URINE 30 mg/dL (NEGATIVE); UROBILINOGEN,URINE 0.2 (NORMAL) E.U./dL (NORMAL)
[2024-05-18 19:54] LABS: CLARITY,URINE CLEAR (CLEAR)
[2024-05-18 19:55] LABS: BACTERIA,URINE None Seen /HPF (None Seen); RBC,URINE 0-5 /HPF (0-5); SQUAMOUS EPITHELIAL CELL,UR RARE Squamous (<= Few); WBC,URINE 0-3 /HPF (0-3)
[2024-05-18] MEDS: INSULIN LISPRO 300 UNIT/3 ML PEN SUBQ SCH (20:45)
[2024-05-18] MEDS: LABETALOL 20 MG/4 ML SYRINGE IVP PRN (21:30)
[2024-05-18] MEDS: INSULIN GLARGINE-YFGN 300 UNIT/3 ML PEN SUBQ SCH (21:30)
[2024-05-19] MEDS: PANTOPRAZOLE 40 MG TABLET PO SCH (05:41)
[2024-05-19] MEDS: ONDANSETRON 4 MG/2 ML VIAL IVP PRN (08:08)
[2024-05-19] MEDS: PROCHLORPERAZINE 10 MG/2 ML VIAL IVP PRN (08:44)
[2024-05-19] MEDS: HALOPERIDOL 5 MG/ML VIAL IVP PRN (12:03)
--- NOTE | 2024-05-19 18:33 | PROVIDER PROGRESS NOTE ---
Subjective Prog Note Date Prog Note Date: 05/19/24 Prog Note Time: 18:31 Subjective Pt reports feeling: No change Subjective: Continues to complain of vomiting Current Medications Current Medications Current Medications: Current Medications Generic Name Dose Route Start Last Admin Trade Name Freq PRN Reason Stop Dose Admin Acetaminophen 650 mg 05/18/24 09:52 Acetaminophen 325 Mg Tablet PO Q4HR PRN Pain 1 to 4, or Fever Hydrocodone Bitart/Acetaminophen 1 tab 05/18/24 09:52 Hydrocod/Acetam 5/325 Mg Tablet PO Q4HR PRN Pain 5 to 7 Amlodipine Besylate 10 mg 05/18/24 10:00 05/19/24 08:00 Amlodipine 5 Mg Tablet PO 10 mg DAILY NATHANIEL Administration Haloperidol 2 mg 05/18/24 09:52 05/19/24 12:03 Haloperidol 5 Mg/Ml Vial IVP 2 mg Q6H PRN Administration Agitation Sodium Chloride 1,000 mls @ 100 mls/hr 05/18/24 10:00 05/19/24 13:30 Normal Saline 0.9% IV 100 mls/hr .Q10H ANTHANIEL Infusion Insulin Glargine-yfgn 10 unit 05/18/24 21:00 05/18/24 21:30 Insulin Glargine-Yfgn 300 Unit/3 Ml Pen SUBQ 10 unit QPM NATHANIEL Administration Insulin Human Lispro 1 - 5 unit 05/18/24 21:00 05/19/24 16:50 Insulin Lispro 300 Unit/3 Ml Pen SUBQ 3 unit 0800,1200,1700,2100 NATHANIEL Administration Protocol Labetalol HCl 20 mg 05/18/24 20:55 05/19/24 16:14 Labetalol 20 Mg/4 Ml Syringe IVP 20 mg Q4H PRN Administration SBP> or= 160 OR DBP> or= 110 Ondansetron HCl 4 mg 05/18/24 09:52 05/19/24 16:04 Ondansetron 4 Mg/2 Ml Vial IVP 4 mg Q6HR PRN Administration Nausea / Vomiting Oxycodone HCl 10 mg 05/18/24 09:52 Oxycodone 5 Mg Tablet PO Q4HR PRN Pain 8 to 10 Pantoprazole Sodium 40 mg 05/19/24 07:00 05/19/24 05:41 Pantoprazole 40 Mg Tablet PO 40 mg QDAC NATHANIEL Administration Prochlorperazine Edisylate 10 mg 05/18/24 09:52 05/19/24 08:44 Prochlorperazine 10 Mg/2 Ml Vial IVP 10 mg Q6HR PRN Administration Nausea / Vomiting Sodium Chloride 10 ml 05/18/24 09:52 Sodium Chloride Flush 0.9% 10 Ml Syringe IVP PRN PRN NEEDED PER PROVIDER ORDERS Sodium Chloride 10 ml 05/18/24 17:00 05/19/24 16:51 Sodium Chloride Flush 0.9% 10 Ml Syringe IVP 10 ml 0100,0900,1700 NATHANIEL Administration Tamsulosin HCl 0.4 mg 05/18/24 10:00 05/19/24 08:00 Tamsulosin 0.4 Mg Capsule PO 0.4 mg DAILY NATHANIEL Administration Objective Vital Signs/Intake & Output Reviewed Vital Signs: Yes Vital Signs: Vital Signs x48h Temp Pulse Pulse Resp BP BP Pulse Ox 05/19/24 18:13 109 H 182/112 H 05/19/24 16:54 105 H 215/136 H 05/19/24 16:40 109 H 201/129 H 05/19/24 16:34 103 H 176/129 H 05/19/24 16:29 106 H 194/121 H 05/19/24 16:24 108 H 187/128 H 05/19/24 16:14 116 H 197/132 H 05/19/24 15:33 36.8 C 122 H 18 196/136 H 94 Intake & Output: Intake & Output 05/16/24 05/17/24 05/18/24 05/19/24 23:59 23:59 23:59 23:59 Intake Total 3203 / 3203 1928 / 1928 Output Total 400 / 400 720 / 720 Balance 2803 / 2803 1208 / 1208 Weight (kg) 99.9 kg Objective General Appearance: positive No acute distress and Alert Cardiovascular: positive Regular rate & rhythm, No murmur and No gallop Abdomen: positive Non-tender, No organomegaly and No distention Skin: positive Color nml Extremities: positive Non-tender and No pedal edema Neurologic/Psychiatric: positive Oriented x3 Lab Results 05/18/24 03:05 05/18/24 03:05 Other Labs: Lab Results x24hrs 05/19/24 05/19/24 05/19/24 Range/Units 16:50 11:21 07:36 POC Whole Bld Glucose 248 229 162 (70-100) mg/dL Urine Color Urine Clarity (CLEAR) Urine pH (5.0-7.5) PH Ur Specific [place] (1.002-1.030) Urine Protein (NEGATIVE) mg/dL Urine Glucose (UA) (NEGATIVE) mg/dL Urine Ketones (NEGATIVE) mg/dL Urine Occult Blood (NEGATIVE) Urine Nitrite (NEGATIVE) Urine Bilirubin (NEGATIVE) Urine Urobilinogen (NORMAL) E.U./dL Ur Leukocyte Esterase (NEGATIVE) Urine RBC (0-5) /HPF Urine WBC (0-3) /HPF Ur Squamous Epith Cells (<= Few) Urine Bacteria (None Seen) /HPF Ur Microscopic Review Urine Culture Comments 05/18/24 05/18/24 Range/Units 20:09 19:00 POC Whole Bld Glucose 355 (70-100) mg/dL Urine Color YELLOW Urine Clarity CLEAR (CLEAR) Urine pH 5.5 (5.0-7.5) PH Ur Specific [place] 1.025 (1.002-1.030) Urine Protein 30 H (NEGATIVE) mg/dL Urine Glucose (UA) >=1000 H (NEGATIVE) mg/dL Urine Ketones >=80 H (NEGATIVE) mg/dL Urine Occult Blood [place] (NEGATIVE) Urine Nitrite NEGATIVE (NEGATIVE) Urine Bilirubin SMALL H (NEGATIVE) Urine Urobilinogen 0.2 (NORMAL) (NORMAL) E.U./dL Ur Leukocyte Esterase NEGATIVE (NEGATIVE) Urine RBC 0-5 (0-5) /HPF Urine WBC 0-3 (0-3) /HPF Ur Squamous Epith Cells RARE Squamous (<= Few) Urine Bacteria None Seen (None Seen) /HPF Ur Microscopic Review INDICATED Urine Culture Comments NOT INDICATED Assessment/Plan Problem List (1) Intractable vomiting: Impression: * Likely secondary to marijuana, cannabinoid hyperemesis * Continue supportive care * Per patient's wishes, have advance diet but counseled him carefully on appropriate way to advance his diet * Continue as needed antiemetics * Okay to discharge when able to tolerate p.o. (2) Hypertension: Impression: * BP elevated, not controlled * Likely 2/2 unable to keep PO meds, plus vomiting * Cont home meds if able to tolerate * Cont PRN hydralazine Qualifiers: Hypertension type: primary hypertension Qualified Code(s): I10 - Essential (primary) hypertension (3) Type 2 diabetes mellitus with diabetic neuropathy, unspecified: Impression: * Was on CLD * Now advanced to DM diet * Cont ISS Qualifiers: Diabetes mellitus exterminator termite insulin use: with nursing home use Qualified Code(s): E11.40 - Type 2 diabetes mellitus with diabetic neuropathy, unspecified; Z79.4 - watermelon inspector (current) use of insulin (4) Afib: Impression: * Rate controlled, cont eliquis * If unable to tolerate, can start lovenox Qualifiers: Atrial fibrillation type: paroxysmal Qualified Code(s): I48.0 - Paroxysmal atrial fibrillation (5) History of deep vein thrombosis: Impression: * As above, cont eliquis
[2024-05-19] MEDS: hydrALAZINE INJ 20 MG/ML VIAL IVP PRN (20:09)
[2024-05-19] MEDS: APIXABAN 5 MG TABLET PO SCH (20:12)
[2024-05-19] MEDS: INSULIN LISPRO 300 UNIT/3 ML PEN SUBQ SCH (20:48)
[2024-05-19] MEDS: LABETALOL 20 MG/4 ML SYRINGE IVP PRN (21:58)
[2024-05-20] MEDS: hydrALAZINE INJ 20 MG/ML VIAL IVP PRN (01:57)
[2024-05-20] MEDS: hydroCHLOROthiazide 25 MG TABLET PO SCH (08:08)
[2024-05-20] MEDS: METOPROLOL TARTRATE 50 MG TABLET PO SCH (08:32)
[2024-05-20] MEDS: INSULIN LISPRO 300 UNIT/3 ML PEN SUBQ SCH (12:00)
--- NOTE | 2024-05-20 13:32 | PROVIDER PROGRESS NOTE ---
Subjective Prog Note Date Prog Note Date: 05/20/24 Prog Note Time: 13:28 Subjective Pt reports feeling: No change Subjective: Continues to complain of vomiting Is able to tolerate small sips of Gatorade Current Medications Current Medications Current Medications: Current Medications Generic Name Dose Route Start Last Admin Trade Name Freq PRN Reason Stop Dose Admin Acetaminophen 650 mg 05/18/24 09:52 Acetaminophen 325 Mg Tablet PO Q4HR PRN Pain 1 to 4, or Fever Hydrocodone Bitart/Acetaminophen 1 tab 05/18/24 09:52 Hydrocod/Acetam 5/325 Mg Tablet PO Q4HR PRN Pain 5 to 7 Amlodipine Besylate 10 mg 05/18/24 10:00 05/20/24 08:09 Amlodipine 5 Mg Tablet PO 10 mg DAILY NATHANIEL Administration Apixaban 5 mg 05/19/24 21:00 05/20/24 08:09 Apixaban 5 Mg Tablet PO 5 mg BID NATHANIEL Administration Haloperidol 2 mg 05/18/24 09:52 05/19/24 12:03 Haloperidol 5 Mg/Ml Vial IVP 2 mg Q6H PRN Administration Agitation Hydralazine HCl 10 mg 05/19/24 21:11 05/20/24 07:47 Hydralazine Inj 20 Mg/Ml Vial IVP 10 mg Q4H PRN Administration Blood Pressure Hydrochlorothiazide 25 mg 05/20/24 09:00 05/20/24 08:08 Hydrochlorothiazide 25 Mg Tablet PO 25 mg DAILY NATHANIEL Administration Sodium Chloride 1,000 mls @ 100 mls/hr 05/18/24 10:00 05/20/24 06:39 Normal Saline 0.9% IV 100 mls/hr .Q10H NATHANIEL Administration Insulin Glargine-yfgn 10 unit 05/18/24 21:00 05/19/24 20:48 Insulin Glargine-Yfgn 300 Unit/3 Ml Pen SUBQ 10 unit QPM NATHANIEL Administration Insulin Human Lispro 2 - 10 unit 05/20/24 12:00 05/20/24 12:00 Insulin Lispro 300 Unit/3 Ml Pen SUBQ 6 unit 0800,1200,1700,2100 NATHANIEL Administration Protocol Labetalol HCl 20 mg 05/19/24 21:34 05/19/24 21:58 Labetalol 20 Mg/4 Ml Syringe IVP 20 mg Q4H PRN Administration Hypertensive Emergency Metoclopramide HCl 5 mg 05/20/24 09:24 Metoclopramide 10 Mg/2 Ml Vial IVP Q6HR PRN Nausea / Vomiting Metoprolol Tartrate 50 mg 05/20/24 09:00 05/20/24 08:32 Metoprolol Tartrate 50 Mg Tablet PO 50 mg BID NATHANIEL Administration Ondansetron HCl 4 mg 05/18/24 09:52 05/20/24 06:39 Ondansetron 4 Mg/2 Ml Vial IVP 4 mg Q6HR PRN Administration Nausea / Vomiting Oxycodone HCl 10 mg 05/18/24 09:52 Oxycodone 5 Mg Tablet PO Q4HR PRN Pain 8 to 10 Pantoprazole Sodium 40 mg 05/19/24 07:00 05/20/24 06:39 Pantoprazole 40 Mg Tablet PO 40 mg QDAC NATHANIEL Administration Prochlorperazine Edisylate 10 mg 05/18/24 09:52 05/20/24 01:43 Prochlorperazine 10 Mg/2 Ml Vial IVP 10 mg Q6HR PRN Administration Nausea / Vomiting Sodium Chloride 10 ml 05/18/24 09:52 Sodium Chloride Flush 0.9% 10 Ml Syringe IVP PRN PRN NEEDED PER PROVIDER ORDERS Sodium Chloride 10 ml 05/18/24 17:00 05/20/24 08:09 Sodium Chloride Flush 0.9% 10 Ml Syringe IVP Not Given 0100,0900,1700 NATHANIEL Tamsulosin HCl 0.4 mg 05/18/24 10:00 05/20/24 08:09 Tamsulosin 0.4 Mg Capsule PO 0.4 mg DAILY NATHANIEL Administration Objective Vital Signs/Intake & Output Reviewed Vital Signs: Yes Vital Signs: Vital Signs x48h Temp Pulse Pulse Resp BP BP Pulse Ox 05/20/24 12:58 36.8 C 92 16 124/78 94 05/20/24 09:43 115/90 05/20/24 08:32 104 H 182/118 H 05/20/24 08:10 182/118 H 05/20/24 07:47 206/144 H 05/20/24 07:46 36.9 C 109 H 20 206/144 H 98 Intake & Output: Intake & Output 05/17/24 05/18/24 05/19/24 05/20/24 23:59 23:59 23:59 23:59 Intake Total 3203 / 3203 2755 / 2755 1298 / 1298 Output Total 400 / 400 720 / 720 50 / 50 Balance 2803 / 2803 2035 / 2035 1248 / 1248 Weight (kg) 99.9 kg Objective General Appearance: positive No acute distress and Alert ENT: positive Dry mucous membranes Respiratory: positive No respiratory distress Cardiovascular: positive Regular rate & rhythm, No murmur and No gallop Abdomen: positive Non-tender, No organomegaly and No distention Skin: positive Color nml Extremities: positive Non-tender and No pedal edema Neurologic/Psychiatric: positive Oriented x3 Lab Results 05/18/24 03:05 05/18/24 03:05 Other Labs: Lab Results x24hrs 05/20/24 05/20/24 05/19/24 Range/Units 11:13 07:35 20:44 POC Whole Bld Glucose 271 247 253 (70-100) mg/dL 05/19/24 Range/Units 16:50 POC Whole Bld Glucose 248 (70-100) mg/dL Diagnostic Imaging Diagnostic Imaging Results: positive Final report reviewed ABX Reporting Has patient been on IV antibiotics over the past 48 hours?: No Assessment/Plan Problem List (1) Intractable vomiting: Impression: * Likely secondary to marijuana, cannabinoid hyperemesis * Continue supportive care * Per patient's wishes, have advanced diet but counseled him carefully on appropriate way to advance his diet * Continue as needed antiemetics * Okay to discharge when able to tolerate p.o. (2) Hypertension: Impression: * BP elevated, not controlled * Likely 2/2 unable to keep PO meds, plus vomiting * Cont home meds if able to tolerate * Cont PRN labetolol * Started pt on PO metoprolol tartrate 50 mg BID Qualifiers: Hypertension type: primary hypertension Qualified Code(s): I10 - Essential (primary) hypertension (3) Type 2 diabetes mellitus with diabetic neuropathy, unspecified: Impression: * Was on CLD * Now advanced to DM diet * Cont ISS Qualifiers: Diabetes mellitus custodial insulin use: with terminal carman use Qualified Code(s): E11.40 - Type 2 diabetes mellitus with diabetic neuropathy, unspecified; Z79.4 - prison (current) use of insulin (4) Afib: Impression: * Rate controlled, cont eliquis * If unable to tolerate, can start lovenox Qualifiers: Atrial fibrillation type: paroxysmal Qualified Code(s): I48.0 - Paroxysmal atrial fibrillation (5) History of deep vein thrombosis: Impression: * As above, cont eliquis
[2024-05-21] MEDS: METOCLOPRAMIDE 10 MG/2 ML VIAL IVP PRN (02:23)
[2024-05-21] MEDS: METOPROLOL TARTRATE 50 MG TABLET PO SCH (08:13)
[2024-05-21 11:32] LABS: CALCIUM 8.4 mg/dL (8.5-10.3); CREATININE 1.1 mg/dL (0.6-1.3); POTASSIUM 3.2 mmol/L (3.5-4.5)
--- NOTE | 2024-05-21 16:08 | PROVIDER PROGRESS NOTE ---
Subjective Prog Note Date Prog Note Date: 05/20/24 Prog Note Time: 13:28 Subjective Pt reports feeling: No change Subjective: Continues to complain of vomiting Is able to tolerate small sips of Gatorade He reports that he was able only to take 1 bite of the grilled cheese sandwich at dinner yesterday and then spit it out. This is in contradiction to nursing report of him eating half a sandwich Current Medications Current Medications Current Medications: Current Medications Generic Name Dose Route Start Last Admin Trade Name Freq PRN Reason Stop Dose Admin Acetaminophen 650 mg 05/18/24 09:52 Acetaminophen 325 Mg Tablet PO Q4HR PRN Pain 1 to 4, or Fever Hydrocodone Bitart/Acetaminophen 1 tab 05/18/24 09:52 Hydrocod/Acetam 5/325 Mg Tablet PO Q4HR PRN Pain 5 to 7 Amlodipine Besylate 10 mg 05/18/24 10:00 05/21/24 08:13 Amlodipine 5 Mg Tablet PO 10 mg DAILY NATHANIEL Administration Apixaban 5 mg 05/19/24 21:00 05/21/24 08:13 Apixaban 5 Mg Tablet PO 5 mg BID NATHANIEL Administration Haloperidol 2 mg 05/18/24 09:52 05/19/24 12:03 Haloperidol 5 Mg/Ml Vial IVP 2 mg Q6H PRN Administration Agitation Hydralazine HCl 10 mg 05/19/24 21:11 05/21/24 05:11 Hydralazine Inj 20 Mg/Ml Vial IVP 10 mg Q4H PRN Administration Blood Pressure Hydrochlorothiazide 25 mg 05/20/24 09:00 05/21/24 08:13 Hydrochlorothiazide 25 Mg Tablet PO 25 mg DAILY NATHANIEL Administration Sodium Chloride 1,000 mls @ 100 mls/hr 05/18/24 10:00 05/21/24 12:38 Normal Saline 0.9% IV 100 mls/hr .Q10H NATHANIEL Administration Potassium Chloride/Dextrose/Sod Cl 1,000 mls @ 999 mls/hr 05/21/24 15:46 D5.45ns W/20 Meq Kcl IV 05/21/24 17:04 .Q1H1M NATHANIEL Insulin Glargine-yfgn 10 unit 05/18/24 21:00 05/20/24 21:10 Insulin Glargine-Yfgn 300 Unit/3 Ml Pen SUBQ 10 unit QPM NATHANIEL Administration Insulin Human Lispro 2 - 10 unit 05/20/24 12:00 05/21/24 11:52 Insulin Lispro 300 Unit/3 Ml Pen SUBQ 2 unit 0800,1200,1700,2100 NATHANIEL Administration Protocol Labetalol HCl 20 mg 05/19/24 21:34 05/19/24 21:58 Labetalol 20 Mg/4 Ml Syringe IVP 20 mg Q4H PRN Administration Hypertensive Emergency Metoclopramide HCl 5 mg 05/20/24 09:24 05/21/24 02:23 Metoclopramide 10 Mg/2 Ml Vial IVP 5 mg Q6HR PRN Administration Nausea / Vomiting Metoprolol Tartrate 100 mg 05/21/24 09:00 05/21/24 08:13 Metoprolol Tartrate 50 Mg Tablet PO 100 mg BID NATHANIEL Administration Ondansetron HCl 4 mg 05/18/24 09:52 05/21/24 16:01 Ondansetron 4 Mg/2 Ml Vial IVP 4 mg Q6HR PRN Administration Nausea / Vomiting Oxycodone HCl 10 mg 05/18/24 09:52 Oxycodone 5 Mg Tablet PO Q4HR PRN Pain 8 to 10 Pantoprazole Sodium 40 mg 05/19/24 07:00 05/21/24 06:40 Pantoprazole 40 Mg Tablet PO 40 mg QDAC NATHANIEL Administration Prochlorperazine Edisylate 10 mg 05/18/24 09:52 05/20/24 01:43 Prochlorperazine 10 Mg/2 Ml Vial IVP 10 mg Q6HR PRN Administration Nausea / Vomiting Sodium Chloride 10 ml 05/18/24 09:52 Sodium Chloride Flush 0.9% 10 Ml Syringe IVP PRN PRN NEEDED PER PROVIDER ORDERS Sodium Chloride 10 ml 05/18/24 17:00 05/21/24 08:14 Sodium Chloride Flush 0.9% 10 Ml Syringe IVP 10 ml 0100,0900,1700 NATHANIEL Administration Tamsulosin HCl 0.4 mg 05/18/24 10:00 05/21/24 08:13 Tamsulosin 0.4 Mg Capsule PO 0.4 mg DAILY NATHANIEL Administration Objective Vital Signs/Intake & Output Reviewed Vital Signs: Yes Vital Signs: Vital Signs x48h Temp Pulse Pulse Resp BP BP Pulse Ox 05/21/24 15:41 36.5 C 94 18 172/106 H 98 05/21/24 12:37 36.7 C 93 16 167/102 H 97 05/21/24 08:13 104 H 194/115 H Intake & Output: Intake & Output 05/18/24 05/19/24 05/20/24 05/21/24 23:59 23:59 23:59 23:59 Intake Total 3203 / 3203 2755 / 2755 2843 / 2843 2185 / 2185 Output Total 400 / 400 720 / 720 50 / 50 291 / 291 Balance 2803 / 2803 2035 / 2035 2793 / 2793 1894 / 1894 Weight (kg) 99.9 kg Objective General Appearance: positive No acute distress and Alert ENT: positive Dry mucous membranes Respiratory: positive No respiratory distress Cardiovascular: positive Regular rate & rhythm, No murmur and No gallop Abdomen: positive Non-tender, No organomegaly and No distention Skin: positive Color nml Extremities: positive Non-tender and No pedal edema Neurologic/Psychiatric: positive Oriented x3 Lab Results 05/18/24 03:05 05/21/24 11:08 Other Labs: Lab Results x24hrs 05/21/24 05/21/24 05/21/24 Range/Units 11:13 11:08 07:22 Sodium 138 (135-145) mmol/L Potassium 3.2 L (3.5-4.5) mmol/L Chloride 104 (101-111) mmol/L Carbon Dioxide 26 (21-32) mmol/L Anion Gap 8.0 (6-13) BUN 32 H (6-20) mg/dL Creatinine 1.1 (0.6-1.3) mg/dL Estimated GFR (MDRD) 67 L (>89) Glucose 197 H (74-104) mg/dL POC Whole Bld Glucose 179 175 (70-100) mg/dL Calcium 8.4 L (8.5-10.3) mg/dL 05/20/24 05/20/24 Range/Units 20:43 16:18 Sodium (135-145) mmol/L Potassium (3.5-4.5) mmol/L Chloride (101-111) mmol/L Carbon Dioxide (21-32) mmol/L Anion Gap (6-13) BUN (6-20) mg/dL Creatinine (0.6-1.3) mg/dL Estimated GFR (MDRD) (>89) Glucose (74-104) mg/dL POC Whole Bld Glucose 212 263 (70-100) mg/dL Calcium (8.5-10.3) mg/dL Diagnostic Imaging Diagnostic Imaging Results: positive Final report reviewed ABX Reporting Has patient been on IV antibiotics over the past 48 hours?: No Assessment/Plan Problem List (1) Intractable vomiting: Impression: * Likely secondary to marijuana, cannabinoid hyperemesis * Patient has failed attempts to advance diet * Have added Reglan to as needed antiemetics * Counseled patient on suggestions to try saltines, and minimal other foods prior to trying things like urology seen on chest * Will add a single 1 L bolus of D5 half NS with 20 mEq of potassium in hopes that the dextrose will give him enough strength to tolerate more eating * Okay to discharge when able to tolerate p.o. (2) Hypertension: Impression: * BP elevated, not controlled * Likely 2/2 unable to keep PO meds, plus vomiting * Cont home meds if able to tolerate * Cont PRN labetolol * Started pt on PO metoprolol tartrate 50 mg BID Qualifiers: Hypertension type: primary hypertension Qualified Code(s): I10 - Essential (primary) hypertension (3) Type 2 diabetes mellitus with diabetic neuropathy, unspecified: Impression: * Advanced diet yesterday, he reports was unable to eat a sandwhich * Has only had Zero sugar gatorade * Will bolus with D5 1/2NS with 20meq KCL * Will cont to cover with ISS Qualifiers: Diabetes mellitus snf insulin use: with snf use Qualified Code(s): E11.40 - Type 2 diabetes mellitus with diabetic neuropathy, unspecified; Z79.4 - intermediate project manager (current) use of insulin (4) Afib: Impression: * Rate controlled, cont eliquis * If unable to tolerate, can start lovenox Qualifiers: Atrial fibrillation type: paroxysmal Qualified Code(s): I48.0 - Paroxysmal atrial fibrillation (5) History of deep vein thrombosis: Impression: * As above, cont eliquis
[2024-05-21] MEDS: D5.45NS W/20 MEQ KCL 1,000 ML IV SCH (16:26)
[2024-05-22] MEDS: HYDROcod/ACETAM 5/325 MG TABLET PO PRN (00:33)
--- NOTE | 2024-05-22 09:11 | PROVIDER PROGRESS NOTE ---
<Statement entered by Kameron Dawson MD - 05/22/24 13:27> I have seen and examined the patient independently of the PA-C student and agree with the assessment and plan with the following addendum. The patient stated that he was feeling better and although he is not entirely sure he will be able to keep his food down he would like to try and go home. Given that he has been here for 4 days and has had small improvements in his p.o. intake, with no other significant concerns including no electrolyte disturbances it was deemed safe to discharge the patient home with the caveat that if he is not able to tolerate anything by mouth he may need to return to the ER for further evaluation. Subjective Prog Note Date Prog Note Date: 05/22/24 Prog Note Time: 09:09 Subjective Pt reports feeling: Improved Subjective: He is sitting upright in the chair in the room watching TV. He reports drinking about 4 oz of Ensure without emesis or belching. He also passed gas about 0830 today, first time passing gas since being in the hospital. He notes last bowel movement was the night prior to admission. He reports feeling a little confused, suspects this is due to decrease food intake. Denies chest pain, shortness of breath, dysuria, abdominal cramping, bloating, or abdominal pain. Current Medications Current Medications Current Medications: Current Medications Generic Name Dose Route Start Last Admin Trade Name Freq PRN Reason Stop Dose Admin Acetaminophen 650 mg 05/18/24 09:52 Acetaminophen 325 Mg Tablet PO Q4HR PRN Pain 1 to 4, or Fever Hydrocodone Bitart/Acetaminophen 1 tab 05/18/24 09:52 05/22/24 00:33 Hydrocod/Acetam 5/325 Mg Tablet PO 1 tab Q4HR PRN Administration Pain 5 to 7 Amlodipine Besylate 10 mg 05/18/24 10:00 05/22/24 08:07 Amlodipine 5 Mg Tablet PO 10 mg DAILY NATHANIEL Administration Apixaban 5 mg 05/19/24 21:00 05/22/24 08:06 Apixaban 5 Mg Tablet PO 5 mg BID NATHANIEL Administration Haloperidol 2 mg 05/18/24 09:52 05/22/24 03:54 Haloperidol 5 Mg/Ml Vial IVP 2 mg Q6H PRN Administration Agitation Hydralazine HCl 10 mg 05/19/24 21:11 05/22/24 00:32 Hydralazine Inj 20 Mg/Ml Vial IVP 10 mg Q4H PRN Administration Blood Pressure Hydrochlorothiazide 25 mg 05/20/24 09:00 05/22/24 08:07 Hydrochlorothiazide 25 Mg Tablet PO 25 mg DAILY NATHANIEL Administration Sodium Chloride 1,000 mls @ 100 mls/hr 05/18/24 10:00 05/22/24 00:34 Normal Saline 0.9% IV 100 mls/hr .Q10H NATHANIEL Administration Insulin Glargine-yfgn 10 unit 05/18/24 21:00 05/21/24 21:08 Insulin Glargine-Yfgn 300 Unit/3 Ml Pen SUBQ 10 unit QPM NATHANIEL Administration Insulin Human Lispro 2 - 10 unit 05/20/24 12:00 05/22/24 08:05 Insulin Lispro 300 Unit/3 Ml Pen SUBQ 2 unit 0800,1200,1700,2100 NATHANIEL Administration Protocol Labetalol HCl 20 mg 05/19/24 21:34 05/19/24 21:58 Labetalol 20 Mg/4 Ml Syringe IVP 20 mg Q4H PRN Administration Hypertensive Emergency Metoclopramide HCl 5 mg 05/20/24 09:24 05/22/24 00:33 Metoclopramide 10 Mg/2 Ml Vial IVP 5 mg Q6HR PRN Administration Nausea / Vomiting Metoprolol Tartrate 100 mg 05/21/24 09:00 05/22/24 08:06 Metoprolol Tartrate 50 Mg Tablet PO 100 mg BID NATHANIEL Administration Ondansetron HCl 4 mg 05/18/24 09:52 05/22/24 06:20 Ondansetron 4 Mg/2 Ml Vial IVP 4 mg Q6HR PRN Administration Nausea / Vomiting Oxycodone HCl 10 mg 05/18/24 09:52 Oxycodone 5 Mg Tablet PO Q4HR PRN Pain 8 to 10 Pantoprazole Sodium 40 mg 05/19/24 07:00 05/22/24 06:18 Pantoprazole 40 Mg Tablet PO 40 mg QDAC NATHANIEL Administration Prochlorperazine Edisylate 10 mg 05/18/24 09:52 05/22/24 03:53 Prochlorperazine 10 Mg/2 Ml Vial IVP 10 mg Q6HR PRN Administration Nausea / Vomiting Sodium Chloride 10 ml 05/18/24 09:52 Sodium Chloride Flush 0.9% 10 Ml Syringe IVP PRN PRN NEEDED PER PROVIDER ORDERS Sodium Chloride 10 ml 05/18/24 17:00 05/22/24 08:07 Sodium Chloride Flush 0.9% 10 Ml Syringe IVP 10 ml 0100,0900,1700 NATHANIEL Administration Tamsulosin HCl 0.4 mg 05/18/24 10:00 05/22/24 08:06 Tamsulosin 0.4 Mg Capsule PO 0.4 mg DAILY NATHANIEL Administration Objective Vital Signs/Intake & Output Vital Signs: Vital Signs x48h Temp Pulse Pulse Pulse Resp BP BP 05/22/24 08:09 36.8 C 88 14 153/92 H 05/22/24 08:06 85 153/92 H 05/22/24 05:00 37.1 C 83 18 110/73 Pulse Ox 05/22/24 08:09 95 05/22/24 08:06 05/22/24 05:00 96 Intake & Output: Intake & Output 05/19/24 05/20/24 05/21/24 05/22/24 23:59 23:59 23:59 23:59 Intake Total 2755 / 2755 2843 / 2843 4025 / 4025 603 / 603 Output Total 720 / 720 50 / 50 741 / 741 Balance 2034 / 2034 2793 / 2793 3284 / 3284 603 / 603 Objective General Appearance: positive No acute distress (sitting upright in chair watching TV on tablet) and Alert Eyes Bilateral: positive Normal inspection and PERRL ENT: positive ENT inspection nml Neck: positive Nml inspection Respiratory: positive Chest non-tender, No respiratory distress and Breath sounds nml Cardiovascular: positive Regular rate & rhythm Abdomen: positive Non-tender, No organomegaly, Nml bowel sounds and No distention; negative Tenderness or Guarding Skin: positive Color nml Extremities: positive Non-tender Neurologic/Psychiatric: positive Oriented x3, CN's nml (2-12), Sensation nml and Mood/affect nml Lab Results 05/18/24 03:05 05/21/24 11:08 Other Labs: Lab Results x24hrs 05/22/24 05/21/24 05/21/24 Range/Units 07:54 20:41 16:33 Sodium (135-145) mmol/L Potassium (3.5-4.5) mmol/L Chloride (101-111) mmol/L Carbon Dioxide (21-32) mmol/L Anion Gap (6-13) BUN (6-20) mg/dL Creatinine (0.6-1.3) mg/dL Estimated GFR (MDRD) (>89) Glucose (74-104) mg/dL POC Whole Bld Glucose 173 279 172 (70-100) mg/dL Calcium (8.5-10.3) mg/dL 05/21/24 05/21/24 Range/Units 11:13 11:08 Sodium 138 (135-145) mmol/L Potassium 3.2 L (3.5-4.5) mmol/L Chloride 104 (101-111) mmol/L Carbon Dioxide 26 (21-32) mmol/L Anion Gap 8.0 (6-13) BUN 32 H (6-20) mg/dL Creatinine 1.1 (0.6-1.3) mg/dL Estimated GFR (MDRD) 67 L (>89) Glucose 197 H (74-104) mg/dL POC Whole Bld Glucose 179 (70-100) mg/dL Calcium 8.4 L (8.5-10.3) mg/dL ABX Reporting Has patient been on IV antibiotics over the past 48 hours?: No Assessment/Plan Problem List (1) Intractable vomiting: Impression: No vomiting, abdominal cramping, or pain today. He was able to keep down 4oz Ensure. Will attempt to advance diet today to see if tolerated. (2) Hypertension: Impression: Remains hypertensive, not controlled Likely 2/2 unable to keep PO meds, plus vomiting Continue home meds if able to tolerate Continue PRN labetolol Continue PO metoprolol tartrate 50 mg BID Qualifiers: Hypertension type: primary hypertension Qualified Code(s): I10 - Essential (primary) hypertension (3) Type 2 diabetes mellitus with diabetic neuropathy, unspecified: Impression: Able to tolerate 4oz Ensure today. Will continue to cover with ISS Qualifiers: Diabetes mellitus intermediate insulin use: with intermediate use Qualified Code(s): E11.40 - Type 2 diabetes mellitus with diabetic neuropathy, unspecified; Z79.4 - care home (current) use of insulin (4) Afib: Impression: Rate controlled, continue eliquis If unable to tolerate, can start lovenox Qualifiers: Atrial fibrillation type: paroxysmal Qualified Code(s): I48.0 - Paroxysmal atrial fibrillation (5) History of deep vein thrombosis: Impression: Continue Eliquis
--- NOTE | 2024-05-22 13:37 | Discharge Summary ---
Discharge Summary Admit Date: 05/19/24 Discharge Date: 05/22/24 Discharging Provider: Dr Kameron Dawson Primary Care Provider: Dr Marie Henderson Code Status: Attempt Resuscitation Discharge Facility Name: [facility] DIAGNOSES Admission Diagnoses: Intractable nausea and vomiting HTN DM type II Discharge Diagnoses with Status of Each Condition: Intractable nausea vomitingslightly improved HTNimproved Type 2 diabetes mellitus - stable HPI History of Present Illness: Mr. Cueva is a 68-year-old male with history of poorly controlled diabetes mellitus, coronary artery disease, and hypertension who presents with 12 hours of intractable vomiting. He reports vomiting began at 9pm last night, and his most recent episode was 30 minutes prior to this conversation (estimated 9:30am). He has had similar episodes in the past due to cannabis use which resolved with sustained cannabis abstinence, however he has returned to daily marijuana smoking because he enjoys it. He states this feels very similar to those prior episodes. He is laying on his back with head elevated. He kept his eyes closed for the majority of this conversation however he did briefly open his eyes and make eye contact upon my arrival and once or twice while talking to me. He is willing to answer questions however questions regarding medical history, current symptoms, and medication appear frustrating to him, as shown by sighing, shaking his head, and mumbling responses, often requesting we review his record or find his doctor to ask instead of asking him. He often responds quickly with "I don't know", but will sometimes follow with an informative response shortly after. Due to these limitations, gathering history was difficult. His current complaints include vomiting and chronic constipation. He states he initially was vomiting "whole foods", then "petered out" and for the past few hours has been vomiting the "inner lining of the stomach". He reports emesis is light brown. He denies coffee ground emesis, bright red blood, or foaming. He reports chronic constipation related to his medications. His last bowel movement was yesterday. He initially describes it as "different" and "not normal", but when asked to explain, he said it was a normal bowel movement. He uses Smooth Move Tea daily. He denies headache, recent viral illness, abdominal pain or cramping, bloating, chest pain, shortness of breath, cough, new back pain, dysuria, diarrhea. He admits to smoking marijuana daily and states he quit yesterday due to vomiting, he thinks his last use was 2 days ago (05/16/24) but he is unsure. He denies using edible marijuana. He denies any prior tobacco use or illicit drug use. He admits to "sometimes" drinking alcohol, he is unsure of how much, how often, or what type of alcohol. He denies any prior period in his life in which he was a daily or heavy drinker. He denies ever having withdrawal symptoms from drugs or alcohol. He confirms medical history of diabetes mellitus but is unsure if it is type 1 or type 2 (both are listed in chart) and he is unsure of when or how he was diagnosed. He reports prior heart attack and surgery to implant a stent in his heart, unsure of date. Prior surgical history includes appendectomy (age 20 approximately), heart surgery for stent placement, and removal of toes due to diabetic complications. He denies any other prior abdominal procedures. He reports taking both long acting and short acting insulin, Ozempic, Tamsulosin, and Zofran (PRN). He states he takes a heart medication but is unsure what it is called or what it specifically is for (Amlodipine is listed in chart, he does not know if he takes this). He states he does not know names of medications and that it is in the records. He states he takes "many" medications, including some that I did not read from the EMR list, but he does not know what they are for, what they are called, or how often he takes them. He is unsure if he takes any OTC medications at this time. He does not think he is currently taking Omeprazole. He states that he does check blood sugar levels at home, and they are "not terrible", he is unable to recall recent numbers or range of home readings. He lives alone in his house with no pets. He reports he manages his medications and health conditions completely by himself, is fully functional with ADLs and requires no assistance of any kind. 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 His hobbies include photography and digital editing. He is one of 7 children and reports some siblings are alive, some are , some had/have cancers, and some have diabetes. His mother at age 102 of old age, his father at age 70 due to cancer of the stomach. He has two adult children. His son "seems healthy" and his daughter is having surgery at the end of this month to remove "something" from her thyroid. CONSULTS | PROCEDURES Consultations: none Procedures: none HOSPITAL COURSE Hospital Course: The patient was admitted with a presumptive diagnosis of hyperemesis cannabinoid secondary to marijuana use. He was admitted with intractable nausea and vomiting and started on IV fluids. He was initially given a clear liquid diet but stated he had a difficult time tolerating clear liquids so he was given an unrestricted diet but with recommendations on simple things to try such as saltines and advance accordingly. He continued to have difficulty with eating almost anything however on the day of discharge he was able to tolerate about half of an Ensure and was able to keep down Gatorade. Although the patient was given the option to stay longer in order to continue to advance his diet to solids, he became frustrated with the duration of his hospitalization and decided he would like to go home and felt confident he could probably nurses symptoms at home and reassured us that he would return to the ER if he was not able to keep anything down especially his medications which she was counseled on. Incidentally, he was hypertensive for much of the hospital admission, as well as tachycardic (despite IVF, and good urine output), so I started him on metoprolol 100 mg twice daily which he tolerated well. His BP 153/92 at discharge. ALLERGIES Allergies Allergy/AdvReac Type Severity Reaction Status Date / Time No Known Drug Allergies Allergy Verified 05/18/24 02:28 MEDICATIONS Ambulatory Orders Medication Instructions Recorded Confirmed tamsulosin 0.4 mg capsule 0.4 mg PO DAILY 06/09/19 05/18/24 omeprazole 40 mg capsule,delayed 40 mg PO DAILY 01/24/21 05/18/24 release blood-glucose transmitter (Dexcom #1 ea 04/02/24 04/06/24 G6 Transmitter device) insulin aspart U-100 100 unit/mL 2 - 12 unit (0.02 - 0.12 mL) 04/02/24 05/18/24 (3 mL) subcutaneous pen (Novolog subcut TIDWM #15 mL FlexPen U-100 Insulin aspart) insulin glargine 100 unit/mL (3 70 unit (0.7 mL) subcut QPM #15 mL 04/02/24 05/18/24 mL) subcutaneous pen (Lantus Solostar U-100 Insulin) semaglutide 2 mg/dose (8 mg/3 mL) 2 mg (0.75 mL) subcut QWEEK #12 mL 04/02/24 05/18/24 subcutaneous pen injector (Ozempic) amlodipine 10 mg tablet 10 mg PO QDAY 04/06/24 05/18/24 blood-glucose sensor (Dexcom G7 #1 ea 04/17/24 Sensor device) apixaban 5 mg tablet (Eliquis) 5 mg PO BID 05/18/24 05/18/24 chlorthalidone 0.5 tab PO QAM 05/18/24 05/18/24 latanoprost ophthalmic (eye) DAILY 05/18/24 rosuvastatin PO QDAY 05/18/24 metoclopramide HCl 10 mg tablet 10 mg PO QACHS #120 tabs 05/22/24 (Reglan) metoprolol tartrate 50 mg tablet 100 mg (2 x 50 mg) PO BID #60 tabs 05/22/24 ondansetron HCl 4 mg tablet 4 mg PO Q8H PRN nausea and 05/22/24 vomiting #60 tabs PHYSICAL EXAM AT DISCHARGE General Appearance: positive No acute distress Eyes Bilateral: positive Normal inspection Neck: positive Nml inspection Respiratory: positive Chest non-tender and No respiratory distress Cardiovascular: positive Regular rate & rhythm and No murmur Abdomen: positive Non-tender, No organomegaly, Nml bowel sounds and No distention Skin: positive Color nml Extremities: positive Non-tender and Nml appearance Neurologic/Psychiatric: positive Oriented x3 and CN's nml (2-12) LABS 05/18/24 03:05 05/21/24 11:08 DIAGNOSTIC IMAGING Diagnostic Imaging Results: Final report reviewed TIME SPENT Time Spent in Discharge (Minutes): 35 Discharge Plan Discharge Patient Disposition: Home, Self Care Condition: Stable Medically Cleared Date:: 05/22/24 Prescriptions: New metoprolol tartrate 50 mg Tablet 100 mg PO BID Qty: 60 0RF metoclopramide HCl [Reglan] 10 mg tablet 10 mg PO QACHS Qty: 120 0RF ondansetron HCl 4 mg tablet 4 mg PO Q8H PRN (Reason: nausea and vomiting) Qty: 60 0RF Continued (DME) Dexcom G6 Transmitter Device See Rx Instructions .Route Qty: 1 3RF Rx Instructions: As directed insulin aspart U-100 [Novolog FlexPen U-100 Insulin] 100 unit/mL (3 mL) insulin pen 2 - 12 unit subcut TIDWM Qty: 15 6RF insulin glargine [Lantus Solostar U-100 Insulin] 100 unit/mL (3 mL) insulin pen 70 unit subcut QPM Qty: 15 3RF (DME) Dexcom G7 Sensor Device See Rx Instructions .Route Qty: 1 3RF Rx Instructions: As directed tamsulosin 0.4 MG capsule 0.4 mg PO DAILY omeprazole 40 MG capsule,delayed release(DR/EC) 40 mg PO DAILY Eliquis 5 mg tablet 5 mg PO BID chlorthalidone 25 mg tablet 0.5 tab PO QAM Rx Instructions: 1 ONCE QAM latanoprost drops ophthalmic (eye) DAILY Rx Instructions: 1 OU QD rosuvastatin 10 mg tablet PO QDAY Rx Instructions: 1 ONCE DAILY amlodipine 10 mg tablet 10 mg PO QDAY Rx Instructions: Take 1 tablet by mouth once a day Held Ozempic 2 mg/dose (8 mg/3 mL) pen injector 2 mg subcut QWEEK Qty: 12 3RF Hold Instructions: Resume on 05/29/24. This may be causing nausea and vomiting, but discuss with your PCP to determine if you should continue it. Activity Restrictions: Activity as Tolerated Diet: Diabetic Health Concerns: * Because you were admitted for nausea and vomiting, I am going to make a few suggestions. First, please stop smoking marijuana. I do not recommend stopping for a period of time I recommend you stop indefinitely. Also, I want you to try to advance your diet slowly when you get home. Start with basic things like saltines or crackers. You can try toast, cream of wheat, Boiled potatoes. Once you feel comfortable with these types of bland foods you can slowly start reintroducing foods like sandwiches with meats like turkey and only after a couple of days of being able to eat normally should you resume 9 unrestricted diet to eat things that are either greasy or spicy. * Also your blood pressure had been elevated through most of this hospital stay. I am going to start you on a medication called metoprolol and I want you to take it twice daily but please keep in mind you should keep an eye on your heart rate and blood pressure and follow-up with your PCP. If possible I suggest to get a blood pressure cuff to check your blood pressure and write a diary of blood pressure readings twice daily for 2 weeks and also if possible record the heart rate which can be provided by the blood pressure cuff or by manually checking your pulse. If your heart rate seems to be consistently lower than 50 you may need to stop taking the medication. I doubt this will happen because your heart rate was quite elevated for most of the hospital stay. * Also, keep working on your diabetes control. The Ozempic may be a good fit for you, but in some patients it can cause nausea and vomiting so might be worth discussing this with your PCP to determine if your symptoms have any correlation to when you started Ozempic and if it makes sense to continue this or to try other alternatives. Print Language: Kyrgyz Patient Instructions: Cyclic Vomiting Syndrome Ch, Diabetes Type 2 Stand Alone Forms: PCP List
[2024-05-22 13:54] VITALS: BP 141/87; TEMP 98.4; O2SAT 98
== END 2024-05-22 14:15 | disposition home or self-care (01) | DRG 392 ==
LOC: ED 02:13 → MS3 02:13
PROVIDERS: ADMIT Family Medicine Sports Medicine; ATTEND Family Medicine Sports Medicine
DX: E66.9 Obesity, unspecified; E11.42 Type 2 diabetes mellitus with diabetic polyneuropathy; Z95.5 Presence of coronary angioplasty implant and graft; Z79.899 Other long term (current) drug therapy; E11.65 Type 2 diabetes mellitus with hyperglycemia; N40.0 Benign prostatic hyperplasia without lower urinary tract symptoms; Z79.4 Long term (current) use of insulin; I25.2 Old myocardial infarction; I10 Essential (primary) hypertension; K59.09 Other constipation; Z79.01 Long term (current) use of anticoagulants; E80.6 Other disorders of bilirubin metabolism; I48.0 Paroxysmal atrial fibrillation; R11.2 Nausea with vomiting, unspecified; Z89.429 Acquired absence of other toe(s), unspecified side; I25.10 Atherosclerotic heart disease of native coronary artery without angina pectoris; Z79.85 Long-term (current) use of injectable non-insulin antidiabetic drugs; I49.1 Atrial premature depolarization; Z68.28 Body mass index [BMI] 28.0-28.9, adult; Z86.718 Personal history of other venous thrombosis and embolism